=== PATIENT | female | born 1970 | race Native Hawaiian/Other Pacific Islander ===

== ENCOUNTER 2020-05-07 08:26 | Outpatient (REF) | payer MEDICAID, SELFPAY ==
--- NOTE | 2020-05-07 08:33 | MM_ITS ---
EXAMINATION: MM SCREENING DIGITAL BREAST TOMOSYNTHESIS, BILATERAL CLINICAL INFORMATION: Screening. Asymptomatic. Prior reduction mammoplasty 2013. The lifetime risk of breast cancer based on the Tyrer-Cuzick Model is 7%. COMPARISON: Mammography: 08/01/2018, 07/01/2017 TECHNIQUE: Digital breast tomosynthesis is performed in both the craniocaudal and mediolateral oblique views along with computer-aided detection (CAD). Synthesized 2D images are generated from the tomosynthesis. FINDINGS: There are scattered areas of fibroglandular density (ACR BI-RADS breast composition Category b). Breast tissue composition borders on predominantly fatty. There are no significant masses, abnormal calcifications, or other abnormalities. There is no developing density. The axilla and skin contours are unremarkable. IMPRESSION: No mammographic evidence of malignancy. ASSESSMENT: BI-RADS 1: Negative RECOMMENDATION: Routine annual mammography screening. This patient's information was entered into a reminder system with a target due date for their next mammogram.
== END 2020-05-07 08:27 | disposition home or self-care (01) ==
LOC: HO.MAMMO 08:26
PROVIDERS: PCP Nurse Practitioner Family; Visit Provider Nurse Practitioner Family
DX: Z12.31 Encounter for screening mammogram for malignant neoplasm of breast (principal)
CPT/HCPCS: 77063; 77067

== ENCOUNTER → 2020-06-15 10:03 | Outpatient (BNVA) | payer MEDICAID, SELFPAY | PROVIDERS: PCP Family Medicine; Referring Provider Family Medicine; Visit Provider Physician Assistant | DX: K21.9 Gastro-esophageal reflux disease without esophagitis (principal); Z79.899 Other long term (current) drug therapy; Z86.010 Personal history of colon polyps | CPT/HCPCS: 99212 ==

== ENCOUNTER 2020-06-17 15:19 | Outpatient (REF) | payer MEDICAID, SELFPAY ==
[2020-06-17 16:05] LABS: Basophils Percent Auto 0.4 % (0-2); Eosinophils Absolute Auto 0.1 X10*3/uL (0.0-0.4); Eosinophils Percent Auto 1.8 % (0-4); Hematocrit 37.5 % (37-47); Hemoglobin 12.6 g/dl (12.0-16.0); Lymphocytes Absolute Auto 2.2 X10*3/uL (1.2-4.9); Lymphocytes Percent Auto 39.2 % (20-40); MANUAL DIFF FLAG NO; Mean Corpuscular HGB Conc 33.6 g/dl (31.0-35.0); Mean Corpuscular Volume 92.1 fL (80-98); Mean Platelet Volume 10.2 fL (9.4-12.3); Monocytes Absolute Auto 0.3 X10*3/uL (0.1-1.2); Neutrophils Absolute Auto 2.9 X10*3/uL (2.0-8.3); Neutrophils Percent Auto 52.6 % (45-73); Platelet Count 265 X10*3/uL (160-400); Red Blood Count 4.07 X10*6/uL (4.20-5.50); Red Cell Distribution Width 12.4 % (11.0-16.0); White Blood Count 5.5 X10*3/uL (4.8-10.8)
[2020-06-17 16:31] LABS: Alanine Aminotransferase 23 U/L (0-31); Albumin Level 4.3 g/dL (3.5-5.0); Aspartate Amino Transferase 23 U/L (5-31); Bilirubin Total 0.5 mg/dL (0.0-1.0); Estimated Glomerular Filt Rate > 60
[2020-06-20 08:02] LABS: HIV AB/AG Nonreactive (Nonreactive); HIV Num 1 0.14 S/CO (0.00-0.99); ~HepC Num1 0.16 S/CO (0.00-0.79); ~Hepatitis C Antibody Nonreactive (Nonreactive)
[2020-06-21 21:16] LABS: Hepatitis B Viral DNA Qn - cp 1.72 Log IU/mL (NOT DETECTED); Hepatitis B Viral DNA Qn-IU/mL 53 IU/mL (NOT DETECTED)
== END 2020-06-17 15:20 | disposition home or self-care (01) ==
LOC: HO.LAB 15:19
PROVIDERS: PCP Family Medicine; Visit Provider Internal Medicine Infectious Disease
DX: B19.10 Unspecified viral hepatitis B without hepatic coma (principal)
CPT/HCPCS: 36415; 82040; 82247; 82565; 84450; 84460; 85025; 86803; 87389; 87517

== ENCOUNTER 2020-08-19 09:10 | Outpatient (REF) | payer MEDICAID, SELFPAY ==
[2020-08-19 13:29] LABS: Free T4 (Free Thyroxine) 0.86 ng/dL (0.71-1.85); Thyroid Stimulating Hormone 3.38 uIU/mL (0.32-4.0)
== END 2020-08-19 09:11 | disposition home or self-care (01) ==
LOC: HO.LAB 09:10
PROVIDERS: PCP Family Medicine; Referring Provider Family Medicine; Visit Provider Internal Medicine Endocrinology, Diabetes & Metabolism
DX: E03.8 Other specified hypothyroidism (principal); E06.3 Autoimmune thyroiditis; Z79.899 Other long term (current) drug therapy
CPT/HCPCS: 36415; 84439; 84443

== ENCOUNTER 2020-08-23 08:31 | Outpatient (REF) | payer MEDICAID, SELFPAY ==
[2020-08-23 09:59] LABS: SARS COV2 IgG Negative (Negative)
== END 2020-08-23 08:32 | disposition home or self-care (01) ==
LOC: HO.LAB 08:31
PROVIDERS: PCP Family Medicine; Visit Provider Internal Medicine Infectious Disease
DX: Z20.822 Contact with and (suspected) exposure to COVID-19 (principal)
CPT/HCPCS: 36415; 86769

== ENCOUNTER 2020-09-20 09:50 | Day surgery (SDC) | payer MEDICAID, SELFPAY ==
--- NOTE | 2020-09-19 10:03 | P.CONAN_ITS ---
Documented by User: Emma Edwards 09/19/20 10:05 HPI - Anesthesia Eval Consult details Narrative: 49yo F for Upper Endoscopy and Colonoscopy PMFSH Active Problems Active Problems: All Active Problems (Updated 08/19/20 @ 10:28 by Wanda Sandoval MD) Hypothyroidism (Acute) HTN (hypertension) (Acute) History of colon polyps (Acute) Thyroid condition (Acute) Acid reflux (Acute) Past Medical History Medical History Acid reflux Anemia Anxiety Asthma Depression History of back pain History of colon polyps History of palpitations HTN (hypertension) Hx of migraines Hypothyroidism Seasonal allergies Thyroid condition Tubular adenoma Family History Family History (Updated 06/15/20 @ 10:09 by Katerina Soto CMA) Father Family history of high blood pressure Hx of type 1 diabetes mellitus Mother No problems noted. Surgical History Surgical History History of colonoscopy History of nasal septoplasty History of tubal ligation Hx of bilateral breast reduction surgery Social History Social History (Updated 06/15/20 @ 10:09 by Katerina Soto CMA) Alcohol intake: never Smoking Status: Never smoker Advance Directives: No Advance Directives Information Provided: Yes Meds Allergies Allergy/AdvReac Type Severity Reaction Status Date / Time ibuprofen [From Motrin] Allergy Mild SWELLING Unverified 09/15/20 10:04 aspirin [ASPIRIN] Allergy Unknown SWELLING Unverified 09/15/20 10:04 lactose Allergy Unknown Unknown Uncoded 09/15/20 10:04 Home Medications Medication Instructions Recorded Confirmed Last Taken Type multivitamin 1 tab PO DAILY 06/15/20 09/15/20 Unknown History Exam Exam Date and Time: September 19, 2020 1003 Pertinent Lab Results Pertinent Lab Results: Laboratory Tests 04/03/20 06/17/20 06/17/20 22:03 15:32 15:45 WBC 5.5 Hgb 12.6 Hct 37.5 Plt Count 265 Sodium 140 Potassium 4.1 Chloride 105 BUN 9 Creatinine 0.86 Assessment and Plan Assessment Anesthesia Assessment: Chart Reviewed Documented by User: Tanisha Ace 09/20/20 10:19 [facility] Past Medical History Medical History Acid reflux Anemia Anxiety Asthma Depression History of back pain History of colon polyps History of palpitations HTN (hypertension) Hx of migraines Hypothyroidism Seasonal allergies Thyroid condition Tubular adenoma Family History Family History (Updated 06/15/20 @ 10:09 by Katerina Soto [facility]) Father Family history of high blood pressure Hx of type 1 diabetes mellitus Mother No problems noted. Surgical History Surgical History History of colonoscopy History of nasal septoplasty History of tubal ligation Hx of bilateral breast reduction surgery Social History Social History (Updated 06/15/20 @ 10:09 by Katerina Soto [facility]) Alcohol intake: never Smoking Status: Never smoker Advance Directives: No Advance Directives Information Provided: Yes Meds Allergies Allergy/AdvReac Type Severity Reaction Status Date / Time ibuprofen [From Motrin] Allergy Mild SWELLING Unverified 09/15/20 10:04 aspirin [ASPIRIN] Allergy Unknown SWELLING Unverified 09/15/20 10:04 lactose Allergy Unknown Unknown Uncoded 09/15/20 10:04 Home Medications Medication Instructions Recorded Confirmed Last Taken Type multivitamin 1 tab PO DAILY 06/15/20 09/15/20 Unknown History Exam Airway Mallampati Class: II TM Dist: >3cm Neck ROM: Full Heart: RRR Lungs: CTA BL Assessment and Plan Assessment Anesthesia Assessment: Anesthesia Plan Discussed and Chart Reviewed Final Anesthetic Review NPO: Yes ASA Class: II Final Preanesthetic Review: No Changes in Pt Med Stat and Consent Obtained/Reviewed Patient Risk: Intermediate Procedure Risk: Intermediate Anesthetic Plan Anesthetic Plan: MAC: Disposition: Standard PACU
[2020-09-20 10:17] VITALS: BP 158/93; PULSE 118; RESP 20; TEMP 36.1; O2SAT 99; BMI 27.9
[2020-09-20] MEDS: Lactated Ringers 1,000 ML 100 ML IVCONT (10:39)
--- NOTE | 2020-09-20 11:11 | P.HPSUR_ITS ---
Pre-Procedural Eval Section A The patient is an INPATIENT: No The History & Physical has been completed within 30 days and I have reviewed it.: No Section B Chief Complaint: GERD, Hx of Colon Polyps Details of Present Illness: A 49-year-old female with rectal bleeding and abdominal pain. Patient states that she was supposed to have an upper endoscopy and never happened. She had a colonoscopy 2013 showing a tubular adenoma, Was to repeat colonos copy 2018 she has persistent acid reflux despite omeprazole 20 mg daily. She has intermittent rectal bleeding when she strains for BM. Relevant Social History: None Present Medications: see Short Stay Collaborative assessment Medical History: Significant History (Acid reflux History of colon polyps HTN (hypertension) Thyroid condition Tubular adenoma) History of Previous Operations: Relevant previous surgery/procedure and date(s) (Colonoscopy, bilateral breast reduction) Allergies: Allergies Allergy/AdvReac Type Severity Reaction Status Date / Time aspirin [ASPIRIN] Allergy Severe SWELLING Verified 09/20/20 10:27 ibuprofen [From Motrin] Allergy Mild SWELLING Verified 09/20/20 10:27 lactose Allergy Mild Diarrhea Uncoded 09/20/20 10:27 Review of Systems Sugical H&P ROS: Negative: Constitution, Cardiovascular, Respiratory and Gastrointestinal Exam Surgical H&P Exam: Normal: Heart, Normal: Lungs, Normal: Extremities and Normal: Abdomen Plan Diagnosis/Plan: Change (add EGD for evaluatttn of GERD symptoms) I have reviewed the history and physical and performed a pertinent physical examination on my patient. No changes have occurred unless specified.
--- NOTE | 2020-09-20 11:11 | W.PM.OPN ---
Operative Note Operative Note Date of Service: 09/20/20 Narrative: Pre-op diagnosis: Colon cancer screening, rectal bleeding, GERD Post-op diagnosis: other (GERD, gastritis, colon polyps, diverticular, hemorrhoids) Procedure: FLEXIBLE TRANSORAL UPPER GASTROINTESTINAL ENDOSCOPY AND COLONOSCOPY TILL CECUM WITH BIOPSIES UPPER ENDOSCOPY WITH BIOPSIES Consent: Indications for the procedure and potential complications of bleeding, perforation, reaction to medications and missed diagnosis were discussed with the patient and informed consent was obtained. Instrument: Olympus GIF H 190 mid size upper endoscope Monitoring: Vital signs and clinical assessment, continuous EKG monitoring, Pulse oximetry, Carbon Dioxide monitoring and blood pressure monitoring were done throughout the procedure. Procedure: The patient was placed in the left lateral decubitis position and pre-procedure medications were administered and a bite block was placed. The endoscope was inserted into the mouth and advanced under direct vision to the third part of duodenum. A careful inspection was made as the upper endoscope was withdrawn including a retroflexed examination of the proximal stomach; Findings and interventions are described below. Findings: Larynx: Normal Esophagus: GE junction at 35 cms. No esophagitis or Duke's. Stomach: Mild gastric erythema. Biopsies were obtained. Grade 2 flap valve on retroflexed examination of the cardia. Duodenum: Normal bulb and descending duodenum Intervention: Biopsies as noted above COLONOSCOPY PROCEDURE NOTE Consent: Indications for the procedure and potential complications of bleeding, perforation, reaction to medications and missed diagnosis were discussed with the patient and informed consent was obtained. Instrument: Olympus PCF H 190 L variable stiffness pediatric colonoscope Monitoring: Vital signs and clinical assessment, intermittent blood pressure monitoring, continuous EKG monitoring, Pulse oximetry and Carbon Dioxide monitoring were done throughout the procedure. Colon withdrawl time was 18 minutes. Procedure: The patient was placed in the left lateral decubitis position and pre-procedure medications were administered. After a digital rectal examination of the ano-rectum, the video colonoscope was inserted into the rectum and advanced through the colon to the cecum. The colonoscope was slowly withdrawn in a retrograde panoramic fashion and the colon mucosa was carefully examined including a retroflexed view of the rectum. Findings and interventions are described below. Procedure Difficulty: : without difficulty Findings: Terminal Ileum: Not evaluated Cecum: Normal Ascending Colon: Normal Transverse Colon: Normal Descending Colon: Moderate diverticulosis Sigmoid Colon: A 6-7 mm sessile polyp removed with cold biopsy and severe diverticulosis with luminal narrowing. Rectum: Normal Ano-rectum: Moderate internal hemorrhoids Colon preparation: Good copious irrigation Impression and Post Procedure Diagnosis: Endoscopy Findings: ESOPHAGUS: Normal STOMACH: Gastritis. Colonoscopy Findings: One small polyp removed Moderate to severe diverticulosis seen in the left colon Moderate hemorrhoids on retroflexed exam - likely source of rectal bleeding. Plan: Await pathology results Patient has an appointment on 10/12/20 in the GI Clinic with MILLA Lopez . Repeat Colonoscopy interval based on path results - in 5 years if polyps are adenomatous and 10 years if polyps are hyperplastic. Above findings were reviewed with the patient and GERD, colon polyps and diverticulosis handouts were given in the discharge area Surgeon: Segun Galindo MD Anesthesia: MAC (Dr Santana) Estimated blood loss (mL): 0 Pathology: other (A. Gastric antrum, B. SC polyp) Condition: stable Disposition: PACU
[2020-09-20 12:10] VITALS: BP 115/70; PULSE 86; RESP 16; TEMP 36.9; O2SAT 99
[2020-09-20 12:25] VITALS: BP 121/59; PULSE 84; RESP 16; O2SAT 98
[2020-09-20 12:30] VITALS: BP 130/79; PULSE 86; RESP 20; TEMP 36.9; O2SAT 99
== END 2020-09-20 13:25 | disposition home or self-care (01) ==
PROVIDERS: PCP Family Medicine; Visit Provider Internal Medicine Gastroenterology
PROC: (CPT 45380; principal; 2020-09-20 10:50)
DX: Z12.11 Encounter for screening for malignant neoplasm of colon (principal); Z86.010 Personal history of colon polyps; D12.5 Benign neoplasm of sigmoid colon; K57.30 Diverticulosis of large intestine without perforation or abscess without bleeding; K64.8 Other hemorrhoids; K21.9 Gastro-esophageal reflux disease without esophagitis; K29.50 Unspecified chronic gastritis without bleeding; J45.909 Unspecified asthma, uncomplicated; I10 Essential (primary) hypertension; D64.9 Anemia, unspecified; Z79.899 Other long term (current) drug therapy; Z88.8 Allergy status to other drugs, medicaments and biological substances
CPT/HCPCS: 45380; 43239; 88305; 88342

== ENCOUNTER → 2020-10-12 11:53 | Outpatient (BNVA) | payer MEDICAID, SELFPAY | PROVIDERS: PCP Family Medicine; Visit Provider Physician Assistant ==

== ENCOUNTER 2020-11-01 19:01 | Emergency (ER) | payer MEDICAID, SELFPAY ==
--- NOTE | ~2020-11-01 | XR_ITS ---
EXAMINATION: XR CHEST CLINICAL INFORMATION: Chest pain COMPARISON: Chest x-ray 04/03/2020 TECHNIQUE: Frontal view of the chest was obtained. FINDINGS: Cardiac silhouette is normal in size. The lungs are well aerated. There is no lobar consolidation. No pleural effusion or pneumothorax. Mild degenerative changes of the spine. XR/XR chest 1V IMPRESSION: Stable examination demonstrating no acute pulmonary pathology.
[2020-11-01 19:15] VITALS: BP 187/92; PULSE 99; RESP 20; TEMP 36.4; O2SAT 99; BMI 28.3
--- NOTE | 2020-11-01 19:19 | ECG_ITS ---
Test Reason : CHEST THIGNESS Blood Pressure : / mmHG Vent. Rate : 100 BPM Atrial Rate : 100 BPM P-R Int : 138 ms QRS Dur : 074 ms QT Int : 304 ms P-R-T Axes : 051 058 000 degrees QTc Int : 392 ms Normal sinus rhythm Nonspecific ST and T wave abnormality Abnormal ECG Referred By: Generic ED Physician Electronically Signed By:CAMMIE LYMAN MD
[2020-11-01 19:50] LABS: Glucose Urine UA NEG (NEG); Leukocyte Esterase Urine NEG (NEG); MANUAL DIFF FLAG NO; Nitrite Urine NEG (NEG); PH 6.5 (5.0-8.0); Specific Gravity - Urine <= 1.005 (1.005-1.025); Urine Blood NEG (NEG); Urine Ketones NEG (NEG); Urine Protein NEG (NEG-TRACE)
[2020-11-01 19:55] LABS: Appearance Urine CLEAR; Color Urine COLORLESS
[2020-11-01 19:56] LABS: Basophils Percent Auto 0.7 % (0-2); Eosinophils Absolute Auto 0.2 X10*3/uL (0.0-0.4); Eosinophils Percent Auto 2.6 % (0-4); Hematocrit 37.4 % (37-47); Hemoglobin 12.5 g/dl (12.0-16.0); Imm Gran Abs Auto 0.01 X10*3/uL (0.00-0.03); Imm Gran Pct Auto 0.2 % (0.0-0.4); Lymphocytes Absolute Auto 2.5 X10*3/uL (1.2-4.9); Lymphocytes Percent Auto 42.1 % (20-40); Mean Corpuscular HGB Conc 33.4 g/dl (31.0-35.0); Mean Corpuscular Hemoglobin 31.1 pg (27.0-33.0); Mean Platelet Volume 10.3 fL (9.4-12.3); Monocytes Absolute Auto 0.4 X10*3/uL (0.1-1.2); Neutrophils Absolute Auto 2.8 X10*3/uL (2.0-8.3); Neutrophils Percent Auto 48.4 % (45-73); Platelet Count 236 X10*3/uL (160-400); Red Blood Count 4.02 X10*6/uL (4.20-5.50); Red Cell Distribution Width 12.5 % (11.0-16.0); White Blood Count 5.8 X10*3/uL (4.8-10.8)
[2020-11-01 20:24] LABS: Anion Gap 12 (12-20); Blood Urea Nitrogen 9 mg/dL (9-16); Calcium 9.4 mg/dL (8.4-10.2); Carbon Dioxide 27 mmol/L (22-29); Chloride 103 mmol/L (96-108); Creatinine Clr Calc Pharmacy 63.9; Estimated Glomerular Filt Rate > 60; Glucose Random 134 mg/dL (60-115); Potassium 3.8 mmol/L (3.3-5.1); Sodium 138 mmol/L (135-145)
[2020-11-01 20:28] LABS: Troponin-I High Sensitivity < 3.5 ng/L (<3.5-17.0)
[2020-11-01 21:02] VITALS: BP 149/83; PULSE 94; RESP 16; TEMP 36.3; O2SAT 99
[2020-11-01 23:02] VITALS: BP 155/64; PULSE 74; RESP 16; TEMP 36.9; O2SAT 99
[2020-11-02] VITALS: BP 140/60; PULSE 80; PULSE 88; RESP 20; TEMP 37; O2SAT 98
--- NOTE | 2020-11-02 00:41 | ED.CHESTPAIN ---
HPI - Chest Pain General Chief Complaint: Chest Pain Stated Complaint: CHEST TIGHTNESS Time Seen by Provider: 11/02/20 00:41 History of Present Illness HPI narrative: Patient is a 49-year-old female presents today with having chest burning sensation that is been ongoing for the last week. It is constant in nature. Sometimes worse at night. Patient denies any diaphoresis. No shortness of breath. The pain is constant. No history of diabetes. Positive history of hypertension. No history of smoking. Never had a heart attack. Never had a stroke. Patient did not have a recent stress test. No history of sudden in the family. No leg swelling. No history of blood clots. No travel history. Not on hormone replacement. Related Data Home Medications Medication Instructions Recorded Confirmed multivitamin 1 tab PO DAILY 06/15/20 09/15/20 Previous Rx's Medication Instructions Recorded omeprazole 20 mg capsule,delayed 20 mg PO BID #30 cap 06/15/20 release levothyroxine 75 mcg tablet 75 mcg PO DAILY 90 Days #90 tab 08/19/20 Allergies Allergy/AdvReac Type Severity Reaction Status Date / Time aspirin [ASPIRIN] Allergy Severe SWELLING Verified 10/12/20 11:54 ibuprofen [From Motrin] Allergy Mild SWELLING Verified 10/12/20 11:54 lactose Allergy Mild Diarrhea Uncoded 09/20/20 10:27 Review of Systems Review of Systems: Constitutional: No Weight loss, No Fever, No Chills, No Night Sweats, No Fatigue, No Malaise ENT/Mouth: No Hearing loss, No Ear Pain, No Nasal Congestion, No Sinus Pain, No Hoarseness, No sore throat, No Rhinorrhea, No Swallowing Difficulty Eyes: No Eye Pain, No Swelling, No Redness, No Foreign Body, No Discharge, No Vision Changes Cardiovascular: No Chest Pain, No SOB, No Dyspnea on Exertion, No Orthopnea, No Edema, No Palpitations Respiratory: No Cough, No Sputum, No Wheezing, No Smoke Exposure, No Dyspnea Gastrointestinal: No Nausea, No Vomiting, No Diarrhea, No Constipation, No abdominal Pain, No Hematochezia, No Melena Genitourinary: no irregular bleeding, No Dysuria, No Urinary Frequency, No Hematuria, No Urinary Incontinence, No Urgency, No Flank Pain, No Urinary Flow Changes, No Hesitancy Musculoskeletal: No joint pain, No Myalgias, No Joint Swelling Skin: No Skin Lesions, No rash Neuro: No Weakness, No Numbness, No Paresthesias, No Loss of Consciousness, No Dizziness, No Headache Psych: No Anxiety/Panic, No Depression, No SI/HI/AH/VH, No Social Issues, Heme/Lymph: No Bruising, No Bleeding,No Lymphadenopathy Endocrine: No Polyuria, No Polydipsia, No Temperature Intolerance [facility] Past Medical History Medical History Acid reflux Anemia Anxiety Asthma Depression History of back pain History of colon polyps History of palpitations HTN (hypertension) Hx of migraines Hypothyroidism Seasonal allergies Thyroid condition Tubular adenoma Surgical History History of colonoscopy History of esophagogastroduodenoscopy (EGD) History of nasal septoplasty History of tubal ligation Hx of bilateral breast reduction surgery Family History Family History Father Family history of high blood pressure Hx of type 1 diabetes mellitus Mother No problems noted. Social History Social History Household Members: None Alcohol intake: current Alcohol intake frequency: does not drink Smoking Status: Never smoker Advance Directives: No Advance Directives Information Provided: No Physical Exam Vital Signs: Vital Signs: Last Vital Signs Temp 98.4 F 11/01/20 23:02 Pulse 74 11/01/20 23:02 Resp 16 11/01/20 23:02 BP 155/64 H 11/01/20 23:02 Pulse Ox 99 11/01/20 23:02 Body Mass Index 28.3 Appearance: Alert. Oriented X3. No acute distress. Eyes: Pupils equal, round and reactive to light. ENT: Pharynx normal. Neck: Normal inspection. Neck supple. No lymph nodes noted. No crepitus CVS: Normal heart rate and rhythm. Pulses normal. Normal S1 and S2 Respiratory: No respiratory distress. Breath sounds normal. No Wheezing. No rales Abdomen: Soft and nontender. No rigidity. No distention. good BS x4 Skin: Skin warm and dry. Normal skin color. Normal skin turgor. Extremities: No lower extremity edema. Neurovascular intact to all extremities. No Lacerations. No Rash Neuro: Oriented X 3. No motor deficit. No sensory deficit. Moving all extermities. No slurred speech MDM - Chest Pain MDM Narrative Medical decision making narrative: Patient's chest pain atypical in nature. Has risk factors being her age and also hypertension. Patient's EKG showed a sinus pattern heart rate was 100 [place] QRS QT within normal limits is no acute ST segment noted. Patient's troponin is normal in the setting of having chest pain greater than 6 hours. Patient's heart score is 3. Will have patient follow-up on an outpatient basis. Patient's chest x-ray did not show any evidence of pneumonia pneumothorax. Will start patient on omeprazole for possible reflux. Will discharge patient home. Patient has no risk for PE. History atypical for PE. Medical Records Data Attestation: I reviewed the patient's medical records. Lab Data Attestation: I reviewed the patient's lab results. Result diagrams: 11/01/20 19:41 11/01/20 19:41 Labs: Lab Results 11/01/20 11/01/20 11/01/20 Range/Units 19:41 19:41 19:41 WBC 5.8 (4.8-10.8) X10*3/uL RBC 4.02 L (4.20-5.50) X10*6/uL Hgb 12.5 (12.0-16.0) g/dl Hct 37.4 (37-47) % MCV 93.0 (80-98) fL MCH 31.1 (27.0-33.0) pg MCHC 33.4 (31.0-35.0) g/dl RDW 12.5 (11.0-16.0) % Plt Count 236 (160-400) X10*3/uL MPV 10.3 (9.4-12.3) fL Immature Gran % (Auto) 0.2 (0.0-0.4) % Neut % (Auto) 48.4 (45-73) % Lymph % (Auto) 42.1 H (20-40) % [place] % (Auto) 6.0 (2-11) % Eos % (Auto) 2.6 (0-4) % Baso % (Auto) 0.7 (0-2) % Lymph # (Auto) 2.5 (1.2-4.9) X10*3/uL [place] # (Auto) 0.4 (0.1-1.2) X10*3/uL Eos # (Auto) 0.2 (0.0-0.4) X10*3/uL Baso # (Auto) 0.0 (0.0-0.2) X10*3/uL Abs Immat Gran (auto) 0.01 (0.00-0.03) X10*3/uL Absolute Neuts (auto) 2.8 (2.0-8.3) X10*3/uL Absolute Nucleated RBC 0.000 (0.0-0.012) X10*3/uL Nucleated RBC % (auto) 0.0 (0.0-0.2) /100WBC Hold Blue Top SEE NOTE Sodium 138 (135-145) mmol/L Potassium 3.8 (3.3-5.1) mmol/L Chloride 103 (96-108) mmol/L Carbon Dioxide 27 (22-29) mmol/L Anion Gap 12 (12-20) BUN 9 (9-16) mg/dL Creatinine 0.89 (0.5-1.4) mg/dL Estim Creat Clear Calc 63.9 Estimated GFR > 60 Random Glucose 134 H (60-115) mg/dL Calcium 9.4 (8.4-10.2) mg/dL Troponin I High Sens (<3.5-17.0) ng/L Urine Color Urine Appearance Urine pH (5.0-8.0) Ur Specific [place] (1.005-1.025) Urine Protein (NEG-TRACE) MG/DL Urine Glucose (UA) (NEG) MG/DL Urine Ketones (NEG) MG/DL Urine Blood (NEG) Urine Nitrite (NEG) Ur Leukocyte Esterase (NEG) 11/01/20 11/01/20 Range/Units 19:41 19:41 WBC (4.8-10.8) X10*3/uL RBC (4.20-5.50) X10*6/uL Hgb (12.0-16.0) g/dl Hct (37-47) % MCV (80-98) fL MCH (27.0-33.0) pg MCHC (31.0-35.0) g/dl RDW (11.0-16.0) % Plt Count (160-400) X10*3/uL MPV (9.4-12.3) fL Immature Gran % (Auto) (0.0-0.4) % Neut % (Auto) (45-73) % Lymph % (Auto) (20-40) % [place] % (Auto) (2-11) % Eos % (Auto) (0-4) % Baso % (Auto) (0-2) % Lymph # (Auto) (1.2-4.9) X10*3/uL [place] # (Auto) (0.1-1.2) X10*3/uL Eos # (Auto) (0.0-0.4) X10*3/uL Baso # (Auto) (0.0-0.2) X10*3/uL Abs Immat Gran (auto) (0.00-0.03) X10*3/uL Absolute Neuts (auto) (2.0-8.3) X10*3/uL Absolute Nucleated RBC (0.0-0.012) X10*3/uL Nucleated RBC % (auto) (0.0-0.2) /100WBC Hold Blue Top Sodium (135-145) mmol/L Potassium (3.3-5.1) mmol/L Chloride (96-108) mmol/L Carbon Dioxide (22-29) mmol/L Anion Gap (12-20) BUN (9-16) mg/dL Creatinine (0.5-1.4) mg/dL Estim Creat Clear Calc Estimated GFR Random Glucose (60-115) mg/dL Calcium (8.4-10.2) mg/dL Troponin I High Sens < 3.5 (<3.5-17.0) ng/L Urine Color COLORLESS Urine Appearance CLEAR Urine pH 6.5 (5.0-8.0) Ur Specific [place] <= 1.005 (1.005-1.025) Urine Protein NEG (NEG-TRACE) MG/DL Urine Glucose (UA) NEG (NEG) MG/DL Urine Ketones NEG (NEG) MG/DL Urine Blood NEG (NEG) Urine Nitrite NEG (NEG) Ur Leukocyte Esterase NEG (NEG) ECG Data ECG #1: Interpretation: Sinus pattern heart rate is 100 [place] QRS QT within normal limits is no acute ST segment elevation. Discharge Plan Discharge Clinical Impression: Chest pain, Atypical chest pain Patient Disposition: Home, Self-Care Instructions: Chest Pain (ED) Additional Instructions: Small risk of heart attack still exist. Please closely follow-up with her doctor on an outpatient basis. Prescriptions: No Action levothyroxine 75 mcg tablet 75 mcg PO DAILY 90 Days Qty: 90 RF: 3 multivitamin Tablet 1 tab PO DAILY RF: 0 omeprazole 20 mg capsule,delayed release(DR/EC) 20 mg PO BID Qty: 30 RF: 5 Referrals: [facility] [Primary Care Provider] - 2 days
== END 2020-11-02 01:30 | disposition home or self-care (01) ==
PROVIDERS: Emergency Provider Emergency Medicine Emergency Medical Services
DX: R07.9 Chest pain, unspecified (principal); R07.89 Other chest pain; I10 Essential (primary) hypertension; K21.9 Gastro-esophageal reflux disease without esophagitis; J45.909 Unspecified asthma, uncomplicated
CPT/HCPCS: 36415; 71045; 80048; 81003; 84484; 85025; 93005; 99283; 99284

== ENCOUNTER 2020-11-02 09:56 | Outpatient (REF) | payer MEDICAID, SELFPAY ==
[2020-11-02 17:49] LABS: Free T4 (Free Thyroxine) 1.12 ng/dL (0.71-1.85); Thyroid Stimulating Hormone 1.23 uIU/mL (0.32-4.0)
== END 2020-11-02 09:57 | disposition home or self-care (01) ==
LOC: HO.LAB 09:56
PROVIDERS: PCP Family Medicine; Visit Provider Internal Medicine Endocrinology, Diabetes & Metabolism
DX: E03.8 Other specified hypothyroidism (principal); E06.3 Autoimmune thyroiditis
CPT/HCPCS: 36415; 84439; 84443

== ENCOUNTER 2020-11-28 14:00 | Outpatient (REF) | payer MEDICAID, SELFPAY ==
[2020-11-28 14:54] LABS: MANUAL DIFF FLAG NO
[2020-11-28 15:01] LABS: Basophils Percent Auto 0.6 % (0-2); Eosinophils Absolute Auto 0.2 X10*3/uL (0.0-0.4); Eosinophils Percent Auto 3.6 % (0-4); Hemoglobin 12.5 g/dl (12.0-16.0); Imm Gran Abs Auto 0.01 X10*3/uL (0.00-0.03); Imm Gran Pct Auto 0.2 % (0.0-0.4); Lymphocytes Absolute Auto 1.9 X10*3/uL (1.2-4.9); Lymphocytes Percent Auto 36.6 % (20-40); Mean Corpuscular HGB Conc 32.9 g/dl (31.0-35.0); Mean Corpuscular Volume 94.3 fL (80-98); Mean Platelet Volume 10.9 fL (9.4-12.3); Monocytes Absolute Auto 0.3 X10*3/uL (0.1-1.2); Monocytes Percent Auto 4.7 % (2-11); Neutrophils Absolute Auto 2.9 X10*3/uL (2.0-8.3); Neutrophils Percent Auto 54.3 % (45-73); Platelet Count 256 X10*3/uL (160-400); Red Blood Count 4.03 X10*6/uL (4.20-5.50); Red Cell Distribution Width 12.6 % (11.0-16.0); White Blood Count 5.3 X10*3/uL (4.8-10.8)
[2020-11-28 15:28] LABS: Alanine Aminotransferase 23 U/L (0-31); Albumin Level 4.3 g/dL (3.5-5.0); Aspartate Amino Transferase 20 U/L (5-31); Bilirubin Total 0.5 mg/dL (0.0-1.0); Estimated Glomerular Filt Rate > 60
[2020-11-28 15:48] LABS: Syphilis Screen Nonreactive (Nonreactive)
[2020-11-29 04:39] LABS: HIV AB/AG Nonreactive (Nonreactive); HIV Num 1 0.06 S/CO (0.00-0.99); ~HepC Num1 0.12 S/CO (0.00-0.79); ~Hepatitis C Antibody Nonreactive (Nonreactive)
[2020-11-29 04:42] LABS: SARS COV2 IgG Negative (Negative)
[2020-11-29 09:29] LABS: CT PCR NOT DETECTED (Not Detect.); NG PCR NOT DETECTED (Not Detect.)
[2020-12-01 14:52] LABS: Hepatitis B Viral DNA Qn - cp 1.36 Log IU/mL (NOT DETECTED); Hepatitis B Viral DNA Qn-IU/mL 23 IU/mL (NOT DETECTED)
== END 2020-11-28 14:01 | disposition home or self-care (01) ==
LOC: HO.LAB 14:00
PROVIDERS: PCP Family Medicine; Visit Provider Internal Medicine Infectious Disease
DX: Z20.822 Contact with and (suspected) exposure to COVID-19 (principal)
CPT/HCPCS: 82040; 82247; 82565; 84450; 84460; 85025; 86769; 86780; 86803; 87389; 87491; 87517; 87591

== ENCOUNTER 2020-12-02 00:33 | Emergency (ER) | payer MEDICAID, SELFPAY ==
--- NOTE | ~2020-12-02 | XR_ITS ---
EXAMINATION: XR CHEST CLINICAL INFORMATION: Chest tightness, cough COMPARISON: 11/01/2020 TECHNIQUE: Frontal view of the chest was obtained. FINDINGS: The lungs are clear with no focal consolidation. No evidence of pneumothorax, pulmonary edema, or pleural effusions. The cardiomediastinal silhouette is unremarkable. No acute osseous findings. XR/XR chest 1V IMPRESSION: No acute cardiopulmonary findings.
[2020-12-02 00:50] VITALS: BP 174/88; PULSE 102; RESP 20; TEMP 36.3; O2SAT 98; BMI 27.7
--- NOTE | 2020-12-02 02:05 | ECG_ITS ---
Test Reason : CHEST PAIN Blood Pressure : / mmHG Vent. Rate : 097 BPM Atrial Rate : 097 BPM P-R Int : 140 ms QRS Dur : 082 ms QT Int : 332 ms P-R-T Axes : 042 053 -02 degrees QTc Int : 421 ms Normal sinus rhythm Nonspecific ST and T wave abnormality Abnormal ECG When compared with ECG of 01-NOV-2020 19:16, No significant change was found Referred By: Alicja Rosa Electronically Signed By:VALENTINE ALAMO
--- NOTE | 2020-12-02 02:07 | ED.ASTHMA ---
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 Patient states that she uses Taboola for her asthma control, but has not been working lately. Otherwise, she denies any other acute symptoms. Related Data Home Medications Medication Instructions Recorded Confirmed multivitamin 1 tab PO DAILY 06/15/20 09/15/20 Previous Rx's Medication Instructions Recorded omeprazole 20 mg capsule,delayed 20 mg PO BID #30 cap 06/15/20 release levothyroxine 75 mcg tablet 75 mcg PO DAILY 90 Days #90 tab 08/19/20 prednisone 40 mg PO DAILY 4 Days #8 tab 12/02/20 Allergies Allergy/AdvReac Type Severity Reaction Status Date / Time aspirin [ASPIRIN] Allergy Severe SWELLING Verified 10/12/20 11:54 ibuprofen [From Motrin] Allergy Mild SWELLING Verified 10/12/20 11:54 lactose Allergy Mild Diarrhea Uncoded 09/20/20 10:27 Review of Systems Review of Systems: Pertinent positives and negatives as stated in HPI 10 point review of systems otherwise negative. [facility] Past Medical History Source: nursing notes reviewed Medical History Acid reflux Anemia Anxiety Asthma Depression History of back pain History of colon polyps History of palpitations HTN (hypertension) Hx of migraines Hypothyroidism Seasonal allergies Thyroid condition Tubular adenoma Surgical History History of colonoscopy History of esophagogastroduodenoscopy (EGD) History of nasal septoplasty History of tubal ligation Hx of bilateral breast reduction surgery Family History Family History Father Family history of high blood pressure Hx of type 1 diabetes mellitus Mother No problems noted. Social History Social History Household Members: None Alcohol intake: current Alcohol intake frequency: does not drink Smoking Status: Never smoker Advance Directives: No Advance Directives Information Provided: No Patient : No Physical Exam Vital Signs: Vital Signs: Last Vital Signs Temp 97.4 F 12/02/20 00:50 Pulse 95 12/02/20 03:53 Resp 16 12/02/20 03:53 BP 152/90 H 12/02/20 03:53 Pulse Ox 100 12/02/20 03:53 Body Mass Index 27.7 VITAL SIGNS: Reviewed. GENERAL: Well developed, well nourished, in no acute distress. HEAD: Normocephalic/atraumatic EYES: PERRLA, EOMI OROPHARYNX: no oral lesions noted, posterior pharynx clear NECK: Supple, no adenopathy LUNGS: Normal breath sounds, mild bilateral expiratory wheeze without tachypnea or accessory muscle use. SpO2<98> CARDIOVASCULAR: Regular rate and rhythm without noted murmurs ABDOMEN: Soft, non-tender, non-distended with bowel sounds. SKIN: Inspection of the skin reveals no rashes NEUROLOGIC: Alert and oriented x 4. Course Course Course Narrative: 50-year-old female with history and clinical presentation consistent with mild asthma exacerbation likely combined with seasonal allergies. Low clinical suspicion for cardiopulmonary etiologies. Labs, chest x-ray, albuterol, Solu-Medrol. On review of all investigations there are no acute findings from baseline and on re-evaluation patient reports she is feeling much better. MDM - Asthma Lab Data Result diagrams: 12/02/20 03:20 12/02/20 03:20 Labs: Lab Results 12/02/20 12/02/20 12/02/20 Range/Units 03:00 03:20 03:20 WBC 5.1 (4.8-10.8) X10*3/uL RBC 3.87 L (4.20-5.50) X10*6/uL Hgb 12.1 (12.0-16.0) g/dl Hct 36.3 L (37-47) % MCV 93.8 (80-98) fL MCH 31.3 (27.0-33.0) pg MCHC 33.3 (31.0-35.0) g/dl RDW 12.6 (11.0-16.0) % Plt Count 236 (160-400) X10*3/uL MPV 10.2 (9.4-12.3) fL Immature Gran % (Auto) 0.2 (0.0-0.4) % Neut % (Auto) 61.0 (45-73) % Lymph % (Auto) 27.6 (20-40) % [place] % (Auto) 6.5 (2-11) % Eos % (Auto) 4.1 H (0-4) % Baso % (Auto) 0.6 (0-2) % Lymph # (Auto) 1.4 (1.2-4.9) X10*3/uL [place] # (Auto) 0.3 (0.1-1.2) X10*3/uL Eos # (Auto) 0.2 (0.0-0.4) X10*3/uL Baso # (Auto) 0.0 (0.0-0.2) X10*3/uL Abs Immat Gran (auto) 0.01 (0.00-0.03) X10*3/uL Absolute Neuts (auto) 3.1 (2.0-8.3) X10*3/uL Absolute Nucleated RBC 0.000 (0.0-0.012) X10*3/uL Nucleated RBC % (auto) 0.0 (0.0-0.2) /100WBC Sodium 140 (135-145) mmol/L Potassium 3.8 (3.3-5.1) mmol/L Chloride 107 (96-108) mmol/L Carbon Dioxide 26 (22-29) mmol/L Anion Gap 11 L (12-20) BUN 11 (9-16) mg/dL Creatinine 0.83 (0.5-1.4) mg/dL Estim Creat Clear Calc 67.2 Estimated GFR > 60 Random Glucose 161 H (60-115) mg/dL Calcium 9.3 (8.4-10.2) mg/dL Total Bilirubin 0.4 (0.0-1.0) mg/dL AST 17 (5-31) U/L ALT 20 (0-31) U/L Alkaline Phosphatase 106 (39-117) U/L Total Protein 7.0 (6.5-8.0) g/dL Albumin 4.1 (3.5-5.0) g/dL Urine Color COLORLESS Urine Appearance CLEAR Urine pH 7.0 (5.0-8.0) Ur Specific [place] <= 1.005 (1.005-1.025) Urine Protein NEG (NEG-TRACE) MG/DL Urine Glucose (UA) NEG (NEG) MG/DL Urine Ketones NEG (NEG) MG/DL Urine Blood NEG (NEG) Urine Nitrite NEG (NEG) Ur Leukocyte Esterase NEG (NEG) Discharge Plan Discharge Clinical Impression: Asthma with acute exacerbation Patient Disposition: Home, Self-Care Instructions: Asthma (ED) Additional Instructions: Reanude los medicamentos en el hogar seg?n lo recetado. Bruce un seguimiento con christianson proveedor de atenci?n primaria en los pr?ximos 2-3 d?as para wyatt reevaluaci?n. Recomiende el uso de Claritin (loratadina) de venta kolby, as? katia Flonase y wyatt combinaci?n para las alergias estacionales que pueden estar contribuyendo a los s?ntomas del asma. Regrese al departamento de emergencias por cualquier empeoramiento hany de los s?ntomas. Prescriptions: New prednisone 20 mg tablet 40 mg PO DAILY 4 Days Qty: 8 RF: 0 No Action levothyroxine 75 mcg tablet 75 mcg PO DAILY 90 Days Qty: 90 RF: 3 multivitamin Tablet 1 tab PO DAILY RF: 0 omeprazole 20 mg capsule,delayed release(DR/EC) 20 mg PO BID Qty: 30 RF: 5 Referrals: Ashlee Meza MD [Primary Care Provider] - 2 days Print Language: Greenlandic
[2020-12-02] MEDS: predniSONE 10 MG TABLET 50 MG PO (02:45)
[2020-12-02 03:06] LABS: Glucose Urine UA NEG (NEG); Leukocyte Esterase Urine NEG (NEG); Nitrite Urine NEG (NEG); Specific Gravity - Urine <= 1.005 (1.005-1.025); Urine Blood NEG (NEG); Urine Ketones NEG (NEG); Urine Protein NEG (NEG-TRACE)
[2020-12-02 03:11] LABS: Appearance Urine CLEAR; Color Urine COLORLESS
[2020-12-02 03:23] LABS: MANUAL DIFF FLAG NO
[2020-12-02 03:25] LABS: Basophils Percent Auto 0.6 % (0-2); Eosinophils Absolute Auto 0.2 X10*3/uL (0.0-0.4); Eosinophils Percent Auto 4.1 % (0-4); Hematocrit 36.3 % (37-47); Hemoglobin 12.1 g/dl (12.0-16.0); Imm Gran Abs Auto 0.01 X10*3/uL (0.00-0.03); Imm Gran Pct Auto 0.2 % (0.0-0.4); Lymphocytes Absolute Auto 1.4 X10*3/uL (1.2-4.9); Lymphocytes Percent Auto 27.6 % (20-40); Mean Corpuscular HGB Conc 33.3 g/dl (31.0-35.0); Mean Corpuscular Hemoglobin 31.3 pg (27.0-33.0); Mean Corpuscular Volume 93.8 fL (80-98); Mean Platelet Volume 10.2 fL (9.4-12.3); Monocytes Absolute Auto 0.3 X10*3/uL (0.1-1.2); Monocytes Percent Auto 6.5 % (2-11); Neutrophils Absolute Auto 3.1 X10*3/uL (2.0-8.3); Platelet Count 236 X10*3/uL (160-400); Red Blood Count 3.87 X10*6/uL (4.20-5.50); Red Cell Distribution Width 12.6 % (11.0-16.0); White Blood Count 5.1 X10*3/uL (4.8-10.8)
[2020-12-02] MEDS: Albuterol Sulfate (0.083%) 2.5 MG/3 ML VIAL.NEB 5 MG INHALE (03:50)
[2020-12-02 03:51] VITALS: PULSE 102; O2SAT 96
[2020-12-02 03:52] LABS: Alanine Aminotransferase 20 U/L (0-31); Albumin Level 4.1 g/dL (3.5-5.0); Alkaline Phosphatase 106 U/L (39-117); Anion Gap 11 (12-20); Aspartate Amino Transferase 17 U/L (5-31); Bilirubin Total 0.4 mg/dL (0.0-1.0); Blood Urea Nitrogen 11 mg/dL (9-16); Calcium 9.3 mg/dL (8.4-10.2); Carbon Dioxide 26 mmol/L (22-29); Chloride 107 mmol/L (96-108); Creatinine Clr Calc Pharmacy 67.2; Estimated Glomerular Filt Rate > 60; Glucose Random 161 mg/dL (60-115); Potassium 3.8 mmol/L (3.3-5.1); Sodium 140 mmol/L (135-145)
[2020-12-02 03:53] VITALS: BP 152/90; PULSE 95; RESP 16; O2SAT 100
[2020-12-02 04:00] VITALS: BP 152/87; PULSE 91; RESP 18; O2SAT 97
== END 2020-12-02 04:38 | disposition home or self-care (01) ==
PROVIDERS: Emergency Provider Student in an Organized Health Care Education/Training Program; PCP Family Medicine
DX: J45.901 Unspecified asthma with (acute) exacerbation (principal); Z79.899 Other long term (current) drug therapy
CPT/HCPCS: 36415; 71045; 80053; 81003; 85025; 93005; 94640; 99285

== ENCOUNTER 2020-12-02 09:55 | Emergency (ER) | payer MEDICAID, SELFPAY ==
--- NOTE | 2020-12-02 10:00 | ED_ITS ---
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 Mode of arrival: ambulatory Limitations: no limitations History of Present Illness HPI narrative: 50 yo female with asthma, hypothyroidism seen today for asthma given IV steroids and neb, started on 40mg prednisone daily has not taken the steroid yet, she is very anxious and worked up at this time, she checked her blood sugar this AM and it was 194 so she is very worried, discussed side effects of steroids - she is not sure she is going to take them, discussed in the acute setting and one time elevation we will not start her on medications and it is likely side effect of steroids - she needs to monitor her during the course of treatment and after, PO ativan for anxiety ordered, blood sugar check Onset (ago): hour(s) Severity: mild Relieving factors: none Exacerbating factors: none Associated symptoms: denies other symptoms Treatments prior to arrival: other (does not have diabetes but checked her blood sugar at home 194 became anxious and came to the ED) Related Data Home Medications Medication Instructions Recorded Confirmed multivitamin 1 tab PO DAILY 06/15/20 09/15/20 Previous Rx's Medication Instructions Recorded omeprazole 20 mg capsule,delayed 20 mg PO BID #30 cap 06/15/20 release levothyroxine 75 mcg tablet 75 mcg PO DAILY 90 Days #90 tab 08/19/20 hydroxyzine HCl 25 mg PO TID PRN #20 tab 12/02/20 prednisone 40 mg PO DAILY 4 Days #8 tab 12/02/20 Allergies Allergy/AdvReac Type Severity Reaction Status Date / Time aspirin [ASPIRIN] Allergy Severe SWELLING Verified 10/12/20 11:54 ibuprofen [From Motrin] Allergy Mild SWELLING Verified 10/12/20 11:54 lactose Allergy Mild Diarrhea Uncoded 09/20/20 10:27 Review of Systems Review of Systems: Constitutional : No Weight loss, No Fever, No Chills, No Fatigue, No Malaise ENT/Mouth : No sore throat, No Rhinorrhea Eyes: No Eye Pain, No Swelling, No Redness Cardiovascular : No Chest Pain, No SOB, No Dyspnea on Exertion, No Orthopnea, No Edema, No Palpitations Respiratory : No Cough, No Sputum, No Wheezing Gastrointestinal : No Nausea, No Vomiting, No Diarrhea, No Constipation, No abdominal Pain, No Hematochezia, No Melena Genitourinary : No Dysuria, No Urinary Frequency, No Hematuria, Musculoskeletal : No joint pain, No Myalgias, No Joint Swelling Skin : No Skin Lesions, No rash Neuro : No Weakness, No Numbness, No Dizziness, No Headache Psych : pos Anxiety/Panic, No Depression Heme/Lymph: No Bruising, No Bleeding,No Lymphadenopathy Endocrine : No Polyuria, No Polydipsia All other systems reviewed and are negative [facility] Past Medical History Attestation statement: The following information was validated with the patient. Medical History Acid reflux Anemia Anxiety Asthma Depression History of back pain History of colon polyps History of palpitations HTN (hypertension) Hx of migraines Hypothyroidism Seasonal allergies Thyroid condition Tubular adenoma Surgical History History of colonoscopy History of esophagogastroduodenoscopy (EGD) History of nasal septoplasty History of tubal ligation Hx of bilateral breast reduction surgery Family History Family History Father Family history of high blood pressure Hx of type 1 diabetes mellitus Mother No problems noted. Social History Social History Household Members: None Alcohol intake: never Smoking Status: Never smoker Advance Directives: Yes Advance Directives Information Provided: No Advance Directives on File: No Patient : No Physical Exam Vital Signs: Vital Signs: Last Vital Signs Temp 98.2 F 12/02/20 10:04 Pulse 102 H 12/02/20 11:09 Resp 18 12/02/20 11:09 BP 156/91 H 12/02/20 11:09 Pulse Ox 97 12/02/20 11:09 Body Mass Index 28.6 Appearance: Alert. Oriented X3. No acute distress. Anxious Eyes: Pupils equal, round and reactive to light. ENT: Pharynx normal. Neck: Normal inspection. Neck supple. CVS: tachycardic heart rate and rhythm. Pulses normal. Respiratory: No respiratory distress. Breath sounds normal. Abdomen: Soft and nontender. Skin: Skin warm and dry. Normal skin color. Normal skin turgor. Extremities: No lower extremity edema. No calf ttp Neuro: Oriented X 3. No motor deficit. No sensory deficit. Medical Decision Making MDM Narrative Medical decision making narrative: 50 yo female with asthma, hypothyroidism seen today for asthma given IV steroids and neb, started on 40mg prednisone daily has not taken the steroid yet, she is very anxious and worked up at this time, she checked her blood sugar this AM and it was 194 so she is very worried, discussed side effects of steroids - she is not sure she is going to take them, discussed in the acute setting and one time elevation we will not start her on medications and it is likely side effect of steroids - she needs to monitor her during the course of treatment and after, PO ativan for anxiety ordered, blood sugar check, anticipate DC home with expected course and precautions Lab Data Labs: Lab Results 12/02/20 Range/Units 10:07 POC Glucose 222 H (60-115) mg/dL Discharge Plan Discharge Clinical Impression: Acute hyperglycemia Steroid side effects Qualifiers: Encounter type: initial encounter Qualified Code(s): T38.0X5A - Adverse effect of glucocorticoids and synthetic analogues, initial encounter Patient Disposition: Home, Self-Care Instructions: Prednisone (By mouth), Nondiabetic Hyperglycemia (ED) Additional Instructions: return to ED for any worsening symptoms or concerns blood sugars consistently in the 300s are not normal, steroids cause elevated blood sugars it is a common side effect if your blood sugar remains high this could be a sign a diabetes particularly after you finish the course of steroids Prescriptions: New hydroxyzine HCl 25 mg tablet 25 mg PO TID PRN (Reason: anxiety) Qty: 20 RF: 0 No Action prednisone 20 mg tablet 40 mg PO DAILY 4 Days Qty: 8 RF: 0 levothyroxine 75 mcg tablet 75 mcg PO DAILY 90 Days Qty: 90 RF: 3 multivitamin Tablet 1 tab PO DAILY RF: 0 omeprazole 20 mg capsule,delayed release(DR/EC) 20 mg PO BID Qty: 30 RF: 5 Referrals: Ashlee Meza MD [Primary Care Provider] - 3 days (Saturday if not better)
[2020-12-02 10:04] VITALS: BP 169/84; PULSE 127; RESP 16; TEMP 36.8; O2SAT 98; BMI 28.6
[2020-12-02 10:11] LABS: Glucose, Whole Blood 222 mg/dL (60-115)
[2020-12-02] MEDS: LORazepam 1 MG TABLET PO (10:25)
[2020-12-02 11:09] VITALS: BP 156/91; PULSE 102; RESP 18; O2SAT 97
[2020-12-02 11:13] LABS: Glucose, Whole Blood 201 mg/dL (60-115)
== END 2020-12-02 11:27 | disposition home or self-care (01) ==
PROVIDERS: Emergency Provider Emergency Medicine; PCP Family Medicine
DX: R73.9 Hyperglycemia, unspecified (principal); Z79.899 Other long term (current) drug therapy
CPT/HCPCS: 82947; 99283

== ENCOUNTER 2021-01-10 09:00 | Outpatient (REF) | payer MEDICAID, SELFPAY ==
[2021-01-10 11:40] LABS: Free T4 (Free Thyroxine) 0.93 ng/dL (0.71-1.85); Thyroid Stimulating Hormone 2.72 uIU/mL (0.32-4.0)
== END 2021-01-10 09:01 | disposition home or self-care (01) ==
LOC: HO.LAB 09:00
PROVIDERS: PCP Family Medicine; Visit Provider Internal Medicine Endocrinology, Diabetes & Metabolism
DX: E03.8 Other specified hypothyroidism (principal); E06.3 Autoimmune thyroiditis
CPT/HCPCS: 36415; 84439; 84443

== ENCOUNTER → 2021-02-14 09:47 | Outpatient (BNVA) | payer MEDICAID, SELFPAY | PROVIDERS: PCP Family Medicine; Visit Provider Internal Medicine Endocrinology, Diabetes & Metabolism ==

== ENCOUNTER 2021-02-21 08:10 | Outpatient (REF) | payer MEDICAID, SELFPAY ==
[2021-02-21 09:01] LABS: Estimated Average Glucose 117 mg/dL; Hemoglobin A1c % 5.7 %
[2021-02-21 09:45] LABS: Cholesterol 202 mg/dL; HDL Cholesterol 61 mg/dL; LDL Cholesterol Calculated 123 mg/dl; Triglycerides 92 mg/dL
== END 2021-02-21 08:11 | disposition home or self-care (01) ==
LOC: HO.LAB 08:10
PROVIDERS: PCP Family Medicine; Visit Provider Family Medicine
DX: E11.9 Type 2 diabetes mellitus without complications (principal)
CPT/HCPCS: 36415; 80061; 83036

== ENCOUNTER 2021-04-18 09:08 | Outpatient (REF) | payer MEDICAID, SELFPAY ==
[2021-04-18 10:44] LABS: Free T4 (Free Thyroxine) 0.78 ng/dL (0.71-1.85)
[2021-04-20 07:01] LABS: Thyroglobulin Antibodies <1 IU/mL (< or = 1); Thyroid Peroxidase Antibodies 11 IU/mL (<9)
== END 2021-04-18 09:09 | disposition home or self-care (01) ==
LOC: HO.LAB 09:08
PROVIDERS: PCP Family Medicine; Visit Provider Nurse Practitioner Gerontology
DX: E03.8 Other specified hypothyroidism (principal); E06.3 Autoimmune thyroiditis
CPT/HCPCS: 36415; 84439; 84443; 86376; 86800

== ENCOUNTER → 2021-05-11 14:04 | Outpatient (BNVA) | payer MEDICAID, SELFPAY | PROVIDERS: PCP Family Medicine; Visit Provider Physician Assistant ==

== ENCOUNTER 2021-05-13 15:27 | Emergency (ER) | payer MEDICAID, SELFPAY ==
[2021-05-13 18:33] LABS: MANUAL DIFF FLAG NO
[2021-05-13 18:36] VITALS: BP 154/84; PULSE 95; RESP 18; TEMP 37.1; O2SAT 100
[2021-05-13 18:44] LABS: Basophils Percent Auto 0.3 % (0-2); Eosinophils Absolute Auto 0.1 X10*3/uL (0.0-0.4); Eosinophils Percent Auto 1.6 % (0-4); Hematocrit 38.6 % (37-47); Hemoglobin 12.9 g/dl (12.0-16.0); Imm Gran Abs Auto 0.01 X10*3/uL (0.00-0.03); Imm Gran Pct Auto 0.2 % (0.0-0.4); Lymphocytes Absolute Auto 2.2 X10*3/uL (1.2-4.9); Lymphocytes Percent Auto 33.3 % (20-40); Mean Corpuscular HGB Conc 33.4 g/dl (31.0-35.0); Mean Corpuscular Hemoglobin 30.9 pg (27.0-33.0); Mean Corpuscular Volume 92.3 fL (80-98); Mean Platelet Volume 10.5 fL (9.4-12.3); Monocytes Absolute Auto 0.3 X10*3/uL (0.1-1.2); Monocytes Percent Auto 4.5 % (2-11); Neutrophils Absolute Auto 3.9 X10*3/uL (2.0-8.3); Neutrophils Percent Auto 60.1 % (45-73); Platelet Count 255 X10*3/uL (160-400); Red Blood Count 4.18 X10*6/uL (4.20-5.50); Red Cell Distribution Width 12.5 % (11.0-16.0); White Blood Count 6.5 X10*3/uL (4.8-10.8)
[2021-05-13 18:51] LABS: Alanine Aminotransferase 27 U/L (0-31); Albumin Level 4.6 g/dL (3.5-5.0); Alkaline Phosphatase 106 U/L (39-117); Anion Gap 12 (12-20); Aspartate Amino Transferase 24 U/L (5-31); Bilirubin Total 0.4 mg/dL (0.0-1.0); Blood Urea Nitrogen 15 mg/dL (9-16); Calcium 10.1 mg/dL (8.4-10.2); Carbon Dioxide 26 mmol/L (22-29); Chloride 107 mmol/L (96-108); Estimated Glomerular Filt Rate > 60; Glucose Random 121 mg/dL (60-115); Sodium 141 mmol/L (135-145); Total Protein 7.9 g/dL (6.5-8.0)
[2021-05-13 19:29] VITALS: BP 158/89; PULSE 102; RESP 16; TEMP 36.7; O2SAT 100; BMI 26.0
[2021-05-13 19:48] LABS: Appearance Urine CLEAR; Color Urine STRAW; Glucose Urine UA NEG (NEG); Leukocyte Esterase Urine NEG (NEG); Nitrite Urine NEG (NEG); Specific Gravity - Urine <= 1.005 (1.005-1.025); Urine Blood NEG (NEG); Urine Ketones NEG (NEG); Urine Protein NEG (NEG-TRACE)
[2021-05-13 20:02] LABS: COVID-19 Test Negative (Negative)
[2021-05-13 21:02] VITALS: BP 158/92; PULSE 92; RESP 16; O2SAT 99
--- NOTE | 2021-05-13 21:48 | ED.HA ---
HPI - Headache General Chief Complaint: Headache Stated Complaint: Hypertension Time Seen by Provider: 05/13/21 21:48 Source: patient and per diem interpreter Mode of arrival: ambulatory History of Present Illness HPI Narrative: 50-year-old female with history of hypertension comes in with head pressure and then checked her blood pressure noted that it was 154/100. She denies taking any Tylenol or ibuprofen and on further questioning reports that she does not take her blood pressure medication each day as prescribed and she is placed medication in her thyroid medication bottle. Otherwise, she denies any fever, chills, nausea, vomiting, abdominal pain, diarrhea, urinary pain/burning/frequency, and denies any shortness of breath or chest pain/palpitations. She denies any visual/auditory/speech changes and denies any extremity numbness/tingling/weakness. Related Data Home Medications Medication Instructions Recorded Confirmed multivitamin 1 tab PO DAILY 06/15/20 02/14/21 albuterol sulfate 90 mcg/actuation 2 puff INHALATION Q6H PRN 02/14/21 02/14/21 aerosol inhaler cetirizine 10 mg tablet 10 mg PO DAILY PRN 02/14/21 02/14/21 fluticasone propionate 110 1 puff INHALATION BID 02/14/21 02/14/21 mcg/actuation HFA aerosol inhaler (Flovent HFA) pantoprazole 40 mg tablet,delayed 40 mg PO DAILY 02/14/21 02/14/21 release cholecalciferol (vitamin D3) 50 50 mcg PO DAILY 05/11/21 mcg (2,000 unit) tablet Previous Rx's Medication Instructions Recorded hydroxyzine HCl 25 mg tablet 25 mg PO TID PRN #20 tab 12/02/20 levothyroxine 75 mcg tablet 75 mcg PO DAILY 90 Days #90 tab 02/14/21 famotidine 20 mg tablet 20 mg PO BEDTIME #30 tab 05/11/21 Allergies Allergy/AdvReac Type Severity Reaction Status Date / Time aspirin [ASPIRIN] Allergy Severe SWELLING Verified 05/13/21 19:28 ibuprofen [From Motrin] Allergy Mild SWELLING Verified 05/13/21 19:28 lactose Allergy Mild Diarrhea Uncoded 05/11/21 14:05 Review of Systems Review of Systems: Pertinent positives and negatives as stated in HPI 10 point review of systems otherwise negative. [facility] Past Medical History Medical History Acid reflux Anemia Anxiety Asthma Depression History of back pain History of colon polyps History of palpitations HTN (hypertension) Hx of migraines Hypothyroidism Seasonal allergies Thyroid condition Tubular adenoma Surgical History History of colonoscopy History of esophagogastroduodenoscopy (EGD) History of nasal septoplasty History of tubal ligation Hx of bilateral breast reduction surgery Family History Family History Father Family history of high blood pressure Hx of type 1 diabetes mellitus Mother No problems noted. Social History Social History Household Members: None Alcohol intake: never Patient Tobacco Use Status: Never used Tobacco Advance Directives: No Advance Directives Information Provided: No Physical Exam Vital Signs: Vital Signs: Last Vital Signs Temp 98.1 F 05/13/21 19:29 Pulse 92 05/13/21 21:02 Resp 16 05/13/21 21:02 BP 158/92 H 05/13/21 21:02 Pulse Ox 99 05/13/21 21:02 Body Mass Index 26.0 VITAL SIGNS: Reviewed. GENERAL: Well developed, well nourished, in no acute distress. HEAD: Normocephalic/atraumatic EYES: PERRLA, EOMI OROPHARYNX: no oral lesions noted, posterior pharynx clear and non-erythematous without noted tonsillar enlargement/erythema/exudates NECK: Supple, no adenopathy LUNGS: Normal breath sounds. No adventitious sounds or accessory muscle use. SpO2<99> CARDIOVASCULAR: Regular rate and rhythm without noted murmurs, no JVD or lower extremity edema. ABDOMEN: Soft, non-tender, non-distended with bowel sounds. SKIN: Inspection of the skin reveals no rashes NEUROLOGIC: Alert and oriented x 4. Strength and sensation to light touch were grossly intact x 4, no facial asymmetry, no pronator drift, cranial nerves 2-12 are grossly intact. Course Course Course Narrative: 50-year-old female with history and clinical presentation consistent with hypertension likely secondary to poor compliance with medications. Patient was provided with Tylenol for headache and she has since taken her prescribed blood pressure medication. There are no focal findings. Review of all investigations without acute findings. MDM - Headache Lab Data Result diagrams: 05/13/21 18:29 05/13/21 18:29 Labs: Lab Results 05/13/21 05/13/21 05/13/21 Range/Units 18:29 18:29 19:44 WBC 6.5 (4.8-10.8) X10*3/uL RBC 4.18 L (4.20-5.50) X10*6/uL Hgb 12.9 (12.0-16.0) g/dl Hct 38.6 (37-47) % MCV 92.3 (80-98) fL MCH 30.9 (27.0-33.0) pg MCHC 33.4 (31.0-35.0) g/dl RDW 12.5 (11.0-16.0) % Plt Count 255 (160-400) X10*3/uL MPV 10.5 (9.4-12.3) fL Immature Gran % (Auto) 0.2 (0.0-0.4) % Neut % (Auto) 60.1 (45-73) % Lymph % (Auto) 33.3 (20-40) % [place] % (Auto) 4.5 (2-11) % Eos % (Auto) 1.6 (0-4) % Baso % (Auto) 0.3 (0-2) % Lymph # (Auto) 2.2 (1.2-4.9) X10*3/uL [place] # (Auto) 0.3 (0.1-1.2) X10*3/uL Eos # (Auto) 0.1 (0.0-0.4) X10*3/uL Baso # (Auto) 0.0 (0.0-0.2) X10*3/uL Abs Immat Gran (auto) 0.01 (0.00-0.03) X10*3/uL Absolute Neuts (auto) 3.9 (2.0-8.3) X10*3/uL Absolute Nucleated RBC 0.000 (0.0-0.012) X10*3/uL Nucleated RBC % (auto) 0.0 (0.0-0.2) /100WBC Sodium 141 (135-145) mmol/L Potassium 4.0 (3.3-5.1) mmol/L Chloride 107 (96-108) mmol/L Carbon Dioxide 26 (22-29) mmol/L Anion Gap 12 (12-20) BUN 15 (9-16) mg/dL Creatinine 0.94 (0.5-1.4) mg/dL Estim Creat Clear Calc TNP Estimated GFR > 60 Random Glucose 121 H (60-115) mg/dL Calcium 10.1 D (8.4-10.2) mg/dL Total Bilirubin 0.4 (0.0-1.0) mg/dL AST 24 D (5-31) U/L ALT 27 (0-31) U/L Alkaline Phosphatase 106 (39-117) U/L Total Protein 7.9 (6.5-8.0) g/dL Albumin 4.6 (3.5-5.0) g/dL Urine Color STRAW Urine Appearance CLEAR Urine pH 6.0 (5.0-8.0) Ur Specific [place] <= 1.005 (1.005-1.025) Urine Protein NEG (NEG-TRACE) MG/DL Urine Glucose (UA) NEG (NEG) MG/DL Urine Ketones NEG (NEG) MG/DL Urine Blood NEG (NEG) Urine Nitrite NEG (NEG) Ur Leukocyte Esterase NEG (NEG) COVID-19 (NAHID) (Negative) COVID-19 Clin Com 05/13/21 Range/Units 19:44 WBC (4.8-10.8) X10*3/uL RBC (4.20-5.50) X10*6/uL Hgb (12.0-16.0) g/dl Hct (37-47) % MCV (80-98) fL MCH (27.0-33.0) pg MCHC (31.0-35.0) g/dl RDW (11.0-16.0) % Plt Count (160-400) X10*3/uL MPV (9.4-12.3) fL Immature Gran % (Auto) (0.0-0.4) % Neut % (Auto) (45-73) % Lymph % (Auto) (20-40) % [place] % (Auto) (2-11) % Eos % (Auto) (0-4) % Baso % (Auto) (0-2) % Lymph # (Auto) (1.2-4.9) X10*3/uL [place] # (Auto) (0.1-1.2) X10*3/uL Eos # (Auto) (0.0-0.4) X10*3/uL Baso # (Auto) (0.0-0.2) X10*3/uL Abs Immat Gran (auto) (0.00-0.03) X10*3/uL Absolute Neuts (auto) (2.0-8.3) X10*3/uL Absolute Nucleated RBC (0.0-0.012) X10*3/uL Nucleated RBC % (auto) (0.0-0.2) /100WBC Sodium (135-145) mmol/L Potassium (3.3-5.1) mmol/L Chloride (96-108) mmol/L Carbon Dioxide (22-29) mmol/L Anion Gap (12-20) BUN (9-16) mg/dL Creatinine (0.5-1.4) mg/dL Estim Creat Clear Calc Estimated GFR Random Glucose (60-115) mg/dL Calcium (8.4-10.2) mg/dL Total Bilirubin (0.0-1.0) mg/dL AST (5-31) U/L ALT (0-31) U/L Alkaline Phosphatase (39-117) U/L Total Protein (6.5-8.0) g/dL Albumin (3.5-5.0) g/dL Urine Color Urine Appearance Urine pH (5.0-8.0) Ur Specific [place] (1.005-1.025) Urine Protein (NEG-TRACE) MG/DL Urine Glucose (UA) (NEG) MG/DL Urine Ketones (NEG) MG/DL Urine Blood (NEG) Urine Nitrite (NEG) Ur Leukocyte Esterase (NEG) COVID-19 (NAHID) Negative (Negative) COVID-19 Clin Com See Note ECG Data Attestation: I personally reviewed and interpreted this ECG as follows: Prior ECG tracings: available for review (12/02/2020 no acute changes on comparison) Interpretation: Normal sinus rhythm, HR-78, no STEMI, OR/QRS/QTC is within normal limits. Discharge Plan Discharge Clinical Impression: Hypertension, Headache Patient Disposition: Home, Self-Care Instructions: DASH Eating Plan (ED), Hypertension (ED) Additional Instructions: 1. Reanude todos los medicamentos caseros seg?n lo prescrito. Recomendamos encarecidamente que guarde el medicamento en el recipiente recetado para facilitar christianson identificaci?n. 2. Bruce un seguimiento con christianson proveedor de atenci?n primaria para wyatt reevaluaci?n. Regrese a la arun de emergencias por un empeoramiento hany de los s?ntomas. Prescriptions: No Action hydroxyzine HCl 25 mg tablet 25 mg PO TID PRN (Reason: anxiety) Qty: 20 RF: 0 cetirizine 10 mg tablet 10 mg PO DAILY PRNRF: 0 pantoprazole 40 mg tablet,delayed release (DR/EC) 40 mg PO DAILY RF: 0 albuterol sulfate 90 mcg/actuation HFA aerosol inhaler 2 puff inhalation Q6H PRNRF: 0 Flovent HFA 110 mcg/actuation HFA aerosol inhaler 1 puff inhalation BID RF: 0 levothyroxine 75 mcg tablet 75 mcg PO DAILY 90 Days Qty: 90 RF: 3 multivitamin Tablet 1 tab PO DAILY RF: 0 cholecalciferol (vitamin D3) 50 mcg (2,000 unit) tablet 50 mcg PO DAILY RF: 0 famotidine 20 mg tablet 20 mg PO BEDTIME Qty: 30 RF: 3 Referrals: Ashlee Meza MD [Primary Care Provider] - 2 days Print Language: Northern Irish
--- NOTE | 2021-05-13 21:53 | ECG_ITS ---
Test Reason : chest pain Blood Pressure : / mmHG Vent. Rate : 078 BPM Atrial Rate : 078 BPM P-R Int : 140 ms QRS Dur : 082 ms QT Int : 358 ms P-R-T Axes : 033 038 -06 degrees QTc Int : 408 ms Normal sinus rhythm Nonspecific T wave abnormality Anterior leads Abnormal ECG T wave amplitude has decreased in Anterior leads Referred By: Alicja Rosa Electronically Signed By:ALBERTO LOZANO MD
[2021-05-13] MEDS: Acetaminophen 325 MG TABLET 975 MG PO (22:12)
== END 2021-05-13 22:27 | disposition home or self-care (01) ==
PROVIDERS: Emergency Provider Student in an Organized Health Care Education/Training Program; PCP Family Medicine
DX: R51.9 Headache, unspecified (principal); I10 Essential (primary) hypertension; Z91.14 Patient's other noncompliance with medication regimen; Z20.822 Contact with and (suspected) exposure to COVID-19
CPT/HCPCS: 36415; 80053; 81003; 85025; 87635; 93005; 99283; 99284

== ENCOUNTER 2021-06-05 09:15 | Outpatient (REF) | payer MEDICAID, SELFPAY ==
--- NOTE | ~2021-06-05 | US_ITS ---
EXAMINATION: US THYROID CLINICAL INFORMATION: Hypothyroidism COMPARISON: None TECHNIQUE: Linear transducer valentin-scale and color Doppler examination with attention to the region of the thyroid. FINDINGS: SIZE: Measurements of the thyroid lobes and nodules are given in sagittal, anteroposterior and transverse dimensions respectively. Right Thyroid Lobe: 3.9 x 1.2 x 0.8 cm, volume 2.0 mL. Parenchyma: The gland echotexture is heterogeneous. Thyroid vascularity is normal. Left Thyroid Lobe: 3.0 x 0.6 x 1.0 cm, volume 0.9 mL. Parenchyma: The gland echotexture is heterogeneous. Thyroid vascularity is normal. Isthmus: 0.1 cm in maximum AP dimension. Estimated total number of nodules greater than or equal to 1 cm: 0. Clinical Medical Transcriptionist nodules are described as follows: 1. Location: Left lower. Size: 0.5 x 0.3 x 0.4 cm, volume 0.03 mL. Nodule characteristics: Composition: Mixed cystic and solid (1). Echogenicity: Hypoechoic (2). Shape: Not taller than wide (0). Margins: Smooth (0). Echogenic Foci: None (0). ACR TI-RADS total points: 3 ACR TI-RADS category: 3 NODES: No lymphadenopathy is seen in the tissue surrounding the thyroid gland. US/US thyroid IMPRESSION: Atrophic, heterogeneous thyroid gland which demonstrates only a single 5 mm TR 3 nodule. No follow-up imaging required per ACR recommendations. ACR TI-RADS RECOMMENDATION REFERENCE: Ultrasound-guided fine-needle aspiration, followup ultrasound, no further follow up. * TR3 (3 points): FNA if more than or equal to 2.5 cm in maximum dimension, followup ultrasound in 1, 3 and 5 years if 1.5 to 2.4 cm in maximum dimension. * TR3, TR4 or TR5 nodules that are below the size threshold for follow up receive no follow up.
== END 2021-06-05 09:16 | disposition home or self-care (01) ==
LOC: HO.HMGCX 09:15
PROVIDERS: PCP Family Medicine; Visit Provider Nurse Practitioner Gerontology
DX: E03.8 Other specified hypothyroidism (principal); E06.3 Autoimmune thyroiditis
CPT/HCPCS: 76536

== ENCOUNTER 2021-07-12 09:07 | Outpatient (REF) | payer MEDICAID, SELFPAY ==
[2021-07-12 09:42] LABS: MANUAL DIFF FLAG NO
[2021-07-12 10:11] LABS: Basophils Percent Auto 0.4 % (0-2); Eosinophils Absolute Auto 0.2 X10*3/uL (0.0-0.4); Eosinophils Percent Auto 3.7 % (0-4); Hematocrit 37.4 % (37.0-47.0); Hemoglobin 12.3 g/dl (12.0-16.0); Imm Gran Abs Auto 0.01 X10*3/uL (0.00-0.03); Imm Gran Pct Auto 0.2 % (0.0-0.4); Lymphocytes Absolute Auto 1.9 X10*3/uL (1.2-4.9); Lymphocytes Percent Auto 40.9 % (20-40); Mean Corpuscular HGB Conc 32.9 g/dl (31.0-35.0); Mean Corpuscular Hemoglobin 30.5 pg (27.0-33.0); Mean Corpuscular Volume 92.8 fL (80.0-98.0); Mean Platelet Volume 10.4 fL (9.4-12.3); Monocytes Absolute Auto 0.3 X10*3/uL (0.1-1.2); Monocytes Percent Auto 5.9 % (2-11); Neutrophils Absolute Auto 2.2 x10*3/uL (2.0-8.3); Neutrophils Percent Auto 48.9 % (45-73); Platelet Count 247 X10*3/uL (160-400); Red Blood Count 4.03 X10*6/uL (4.20-5.50); Red Cell Distribution Width 12.2 % (11.0-16.0); White Blood Count 4.6 X10*3/uL (4.8-10.8)
[2021-07-12 10:31] LABS: Prothrombin Time 10.9 SEC (9.9-13.0)
[2021-07-12 10:33] LABS: Alanine Aminotransferase 25 U/L (0-31); Albumin Level 4.2 g/dL (3.5-5.0); Aspartate Amino Transferase 21 U/L (5-31); Bilirubin Total 0.5 mg/dL (0.0-1.0); Estimated Glomerular Filt Rate > 60
[2021-07-12 10:34] LABS: Partial Thromboplastin Time 34.5 SEC (24.1-38.0)
[2021-07-12 10:49] LABS: HIV AB/AG Nonreactive (Nonreactive); HIV Num 1 0.06 S/CO (0.00-0.99)
[2021-07-12 10:53] LABS: Free T4 (Free Thyroxine) 1.07 ng/dL (0.71-1.85); Thyroid Stimulating Hormone 0.94 uIU/mL (0.32-4.0)
[2021-07-12 11:44] LABS: Syphilis Screen Nonreactive (Nonreactive)
[2021-07-12 16:18] LABS: CT PCR NOT DETECTED (Not Detect.); NG PCR NOT DETECTED (Not Detect.)
[2021-07-14 17:50] LABS: Hepatitis B Viral DNA Qn - cp 1.54 Log IU/mL (NOT DETECTED); Hepatitis B Viral DNA Qn-IU/mL 35 IU/mL (NOT DETECTED)
[2021-07-18 15:02] LABS: FIB-ALT 21 U/L (6-29); FIB-Alpha-2-Macroglobulin 209 mg/dL (106-279); FIB-Apolipoprotein A1 176 mg/dL (101-198); FIB-GGT 11 U/L (3-70); FIB-Haptoglobin 127 mg/dL (43-212); FIB-Total Bilirubin 0.5 mg/dL (0.2-1.2); Liver Fibrosis Stage F0; Nec Inflam Act Grade A0; Nec Inflam Act Score 0.06
[2021-07-25 12:46] LABS: Hepatitis Delta Antibody NEGATIVE
== END 2021-07-12 09:08 | disposition home or self-care (01) ==
LOC: HO.LAB 09:07
PROVIDERS: Nurse Practitioner Gerontology; PCP Family Medicine; Visit Provider Internal Medicine Infectious Disease
DX: Z01.84 Encounter for antibody response examination (principal); Z11.4 Encounter for screening for human immunodeficiency virus [HIV]; Z11.3 Encounter for screening for infections with a predominantly sexual mode of transmission; E03.8 Other specified hypothyroidism; E06.3 Autoimmune thyroiditis; B97.81 Human metapneumovirus as the cause of diseases classified elsewhere
CPT/HCPCS: 36415; 81596; 82040; 82247; 82565; 84439; 84443; 84450; 84460; 85025; 85610; 85730; 86692; 86780; 87389; 87491; 87517; 87591

== ENCOUNTER 2021-08-26 08:29 | Outpatient (REF) | payer MEDICAID, SELFPAY ==
[2021-08-26 08:55] LABS: MANUAL DIFF FLAG NO
[2021-08-26 09:02] LABS: Basophils Percent Auto 0.5 % (0-2); Eosinophils Absolute Auto 0.2 X10*3/uL (0.0-0.4); Eosinophils Percent Auto 4.1 % (0-4); Hematocrit 37.6 % (37.0-47.0); Hemoglobin 12.5 g/dl (12.0-16.0); Imm Gran Abs Auto 0.01 X10*3/uL (0.00-0.03); Imm Gran Pct Auto 0.3 % (0.0-0.4); Lymphocytes Absolute Auto 1.6 X10*3/uL (1.2-4.9); Lymphocytes Percent Auto 40.9 % (20-40); Mean Corpuscular HGB Conc 33.2 g/dl (31.0-35.0); Mean Corpuscular Hemoglobin 30.9 pg (27.0-33.0); Mean Corpuscular Volume 92.8 fL (80.0-98.0); Mean Platelet Volume 10.2 fL (9.4-12.3); Monocytes Absolute Auto 0.3 X10*3/uL (0.1-1.2); Monocytes Percent Auto 6.9 % (2-11); Neutrophils Absolute Auto 1.8 x10*3/uL (2.0-8.3); Neutrophils Percent Auto 47.3 % (45-73); Platelet Count 252 X10*3/uL (160-400); Red Blood Count 4.05 X10*6/uL (4.20-5.50); Red Cell Distribution Width 12.4 % (11.0-16.0); White Blood Count 3.9 X10*3/uL (4.8-10.8)
[2021-08-26 09:11] LABS: Estimated Average Glucose 117 mg/dL; Hemoglobin A1c % 5.7 %
[2021-08-26 09:51] LABS: Alanine Aminotransferase 24 U/L (0-31); Alkaline Phosphatase 86 U/L (39-117); Anion Gap 12 (12-20); Aspartate Amino Transferase 19 U/L (5-31); Bilirubin Direct 0.3 mg/dL (0.0-0.5); Bilirubin Total 0.8 mg/dL (0.0-1.0); Blood Urea Nitrogen 14 mg/dL (9-16); Calcium 9.9 mg/dL (8.4-10.2); Carbon Dioxide 27 mmol/L (22-29); Chloride 108 mmol/L (96-108); Cholesterol 202 mg/dL; Estimated Glomerular Filt Rate > 60; Glucose Fasting 101 mg/dL (60-99); HDL Cholesterol 56 mg/dL; Iron 160 mcg/dL (30-160); LDL Cholesterol Calculated 127 mg/dl; Percent Iron Saturation 43 % (15-50); Potassium 4.5 mmol/L (3.3-5.1); Sodium 142 mmol/L (135-145); Total Iron Binding Capacity 368 mcg/dL (228-428); Total Protein 7.2 g/dL (6.5-8.0); Triglycerides 95 mg/dL; Unsaturated Iron Binding 208 ug/dL
[2021-08-26 10:12] LABS: Ferritin 44 ng/mL (10-250); TSH reflex Free T4 0.41 uIU/mL (0.32-4.0); Vitamin D 25-OH Total 27.9 ng/mL (>30)
[2021-08-28 04:39] LABS: Folate 13.6 ng/mL (> or = 4.0); Vitamin B12 509 pg/mL (200-900)
[2021-08-28 04:45] LABS: HIV AB/AG Nonreactive (Nonreactive); HIV Num 1 0.07 S/CO (0.00-0.99)
[2021-08-28 04:46] LABS: ~HepC Num1 0.28 S/CO (0.00-0.79); ~Hepatitis C Antibody Nonreactive (Nonreactive)
== END 2021-08-26 08:30 | disposition home or self-care (01) ==
LOC: HO.LAB 08:29
PROVIDERS: Absent Provider Family Medicine; PCP Family Medicine; Visit Provider Internal Medicine
DX: Z00.00 Encounter for general adult medical examination without abnormal findings (principal); Z11.4 Encounter for screening for human immunodeficiency virus [HIV]
CPT/HCPCS: 36415; 80048; 80061; 80076; 82306; 82607; 82728; 82746; 83036; 83540; 84443; 85025; 86803; 87389

== ENCOUNTER 2021-11-09 14:16 | Outpatient (REF) | payer MEDICAID, SELFPAY ==
[2021-11-09 15:48] LABS: MANUAL DIFF FLAG NO
[2021-11-09 15:59] LABS: Basophils Percent Auto 0.4 % (0-2); Eosinophils Absolute Auto 0.2 X10*3/uL (0.0-0.4); Eosinophils Percent Auto 3.8 % (0-4); Hematocrit 36.5 % (37.0-47.0); Imm Gran Abs Auto 0.01 X10*3/uL (0.00-0.03); Imm Gran Pct Auto 0.2 % (0.0-0.4); Lymphocytes Absolute Auto 2.3 X10*3/uL (1.2-4.9); Lymphocytes Percent Auto 44.2 % (20-40); Mean Corpuscular HGB Conc 32.9 g/dl (31.0-35.0); Mean Corpuscular Hemoglobin 30.3 pg (27.0-33.0); Mean Corpuscular Volume 92.2 fL (80.0-98.0); Mean Platelet Volume 10.3 fL (9.4-12.3); Monocytes Absolute Auto 0.3 X10*3/uL (0.1-1.2); Monocytes Percent Auto 5.7 % (2-11); Neutrophils Absolute Auto 2.4 x10*3/uL (2.0-8.3); Neutrophils Percent Auto 45.7 % (45-73); Platelet Count 234 X10*3/uL (160-400); Red Blood Count 3.96 X10*6/uL (4.20-5.50); White Blood Count 5.3 X10*3/uL (4.8-10.8)
[2021-11-09 16:20] LABS: Alanine Aminotransferase 27 U/L (0-31); Aspartate Amino Transferase 33 U/L (5-31); Estimated Glomerular Filt Rate > 60
[2021-11-09 18:04] LABS: CT PCR NOT DETECTED (Not Detect.); NG PCR NOT DETECTED (Not Detect.)
[2021-11-10 07:41] LABS: ~HepC Num1 0.18 S/CO (0.00-0.79); ~Hepatitis C Antibody Nonreactive (Nonreactive)
[2021-11-10 07:43] LABS: HIV AB/AG Nonreactive (Nonreactive); HIV Num 1 0.12 S/CO (0.00-0.99)
[2021-11-12 11:36] LABS: Hepatitis B Viral DNA Qn - cp 1.46 Log IU/mL (NOT DETECTED); Hepatitis B Viral DNA Qn-IU/mL 29 IU/mL (NOT DETECTED)
== END 2021-11-09 14:17 | disposition home or self-care (01) ==
LOC: HO.LAB 14:16
PROVIDERS: Internal Medicine Infectious Disease; PCP Family Medicine; Visit Provider Physician Assistant
DX: Z11.4 Encounter for screening for human immunodeficiency virus [HIV] (principal); Z11.3 Encounter for screening for infections with a predominantly sexual mode of transmission; B19.10 Unspecified viral hepatitis B without hepatic coma
CPT/HCPCS: 36415; 82565; 84450; 84460; 85025; 86803; 87389; 87491; 87517; 87591

== ENCOUNTER 2021-12-11 09:57 | Outpatient (REF) | payer MEDICAID, SELFPAY ==
--- NOTE | ~2021-12-11 | US_ITS ---
EXAMINATION: US ABDOMEN COMPLETE CLINICAL INFORMATION: HBV, HCC screen. COMPARISON: Ultrasound abdomen complete 01/22/2020 and 08/06/2017. TECHNIQUE: Real-time imaging of the abdominal viscera. FINDINGS: PANCREAS: Visualized portions unremarkable; tail obscured by interposed bowel gas ABDOMINAL AORTA: The proximal, mid, and distal segments are normal in caliber. INFERIOR VENA CAVA: Visualized portions are normal. LIVER: The liver is normal in size. The liver contour is normal. There is diffuse increased and heterogeneous parenchymal echogenicity, consistent with infiltrative hepatocellular disease. No focal hepatic lesion. There is no intrahepatic biliary duct dilatation seen. GALLBLADDER: Normal. The gallbladder is physiologically distended without evidence of stones, sludge, polyps, wall thickening or pericholecystic fluid. COMMON BILE DUCT: Normal in caliber measuring 0.2 cm in diameter. RIGHT KIDNEY: Normal. No hydronephrosis. No renal calculi or focal parenchymal lesions. The kidney measures 9.2 cm in maximum dimension. LEFT KIDNEY: Malrotated. No hydronephrosis. No renal calculi or focal parenchymal lesions. The kidney measures 10.3 cm in maximum dimension. SPLEEN: Normal. The spleen measures 8.7 cm in maximum dimension. FREE FLUID: None. US/US abdomen complete IMPRESSION: Sonographic findings are compatible with hepatocellular disease. No focal liver lesions.
== END 2021-12-11 09:58 | disposition home or self-care (01) ==
LOC: HO.US 09:57
PROVIDERS: Visit Provider Internal Medicine Infectious Disease
DX: B19.10 Unspecified viral hepatitis B without hepatic coma (principal)
CPT/HCPCS: 76700

== ENCOUNTER 2022-01-03 09:30 | Outpatient (REF) | payer MEDICAID, SELFPAY ==
[2022-01-03 10:46] LABS: Alanine Aminotransferase 23 U/L (0-31); Albumin Level 4.1 g/dL (3.5-5.0); Alkaline Phosphatase 86 U/L (39-117); Anion Gap 10 (12-20); Aspartate Amino Transferase 21 U/L (5-31); Bilirubin Total 0.5 mg/dL (0.0-1.0); Blood Urea Nitrogen 17 mg/dL (9-16); Calcium 9.4 mg/dL (8.4-10.2); Carbon Dioxide 29 mmol/L (22-29); Chloride 107 mmol/L (96-108); Cholesterol 205 mg/dL; Estimated Glomerular Filt Rate > 60; Glucose Random 101 mg/dL (60-115); HDL Cholesterol 59 mg/dL; LDL Cholesterol Calculated 133 mg/dl; Potassium 4.8 mmol/L (3.3-5.1); Sodium 141 mmol/L (135-145); Total Protein 6.9 g/dL (6.5-8.0); Triglycerides 67 mg/dL
[2022-01-05 14:41] LABS: CRP High Sensitivity 0.4 mg/L
[2022-01-09 04:42] LABS: Lipoprotein A 70 nmol/L (<75)
== END 2022-01-03 09:31 | disposition home or self-care (01) ==
LOC: HO.LAB 09:30
PROVIDERS: PCP Family Medicine; Visit Provider Internal Medicine
DX: R07.89 Other chest pain (principal); I10 Essential (primary) hypertension
CPT/HCPCS: 36415; 80053; 80061; 83695; 86141

== ENCOUNTER 2022-03-06 08:15 | Outpatient (REF) | payer MEDICAID, SELFPAY ==
[2022-03-06 08:28] LABS: MANUAL DIFF FLAG NO
[2022-03-06 08:55] LABS: Basophils Percent Auto 0.8 % (0-2); Eosinophils Absolute Auto 0.2 X10*3/uL (0.0-0.4); Eosinophils Percent Auto 4.2 % (0-4); Hematocrit 37.7 % (37.0-47.0); Hemoglobin 12.3 g/dl (12.0-16.0); Imm Gran Abs Auto 0.01 X10*3/uL (0.00-0.03); Imm Gran Pct Auto 0.2 % (0.0-0.4); Lymphocytes Absolute Auto 1.9 X10*3/uL (1.2-4.9); Lymphocytes Percent Auto 39.7 % (20-40); Mean Corpuscular HGB Conc 32.6 g/dl (31.0-35.0); Mean Corpuscular Hemoglobin 30.7 pg (27.0-33.0); Mean Platelet Volume 10.2 fL (9.4-12.3); Monocytes Absolute Auto 0.3 X10*3/uL (0.1-1.2); Monocytes Percent Auto 7.2 % (2-11); Neutrophils Absolute Auto 2.3 x10*3/uL (2.0-8.3); Neutrophils Percent Auto 47.9 % (45-73); Platelet Count 250 X10*3/uL (160-400); Red Blood Count 4.01 X10*6/uL (4.20-5.50); Red Cell Distribution Width 13.2 % (11.0-16.0); White Blood Count 4.7 X10*3/uL (4.8-10.8)
[2022-03-06 09:01] LABS: INTERNATIONAL NORM RATIO 0.9 (0.9-1.1); Prothrombin Time 10.4 SEC (10.0-13.1)
[2022-03-06 09:22] LABS: Alanine Aminotransferase 26 U/L (0-31); Albumin Level 4.1 g/dL (3.5-5.0); Aspartate Amino Transferase 20 U/L (5-31); Bilirubin Total 0.5 mg/dL (0.0-1.0); Estimated Glomerular Filt Rate 58
[2022-03-06 10:19] LABS: HIV AB/AG Nonreactive (Nonreactive); HIV Num 1 0.08 S/CO (0.00-0.99); ~HepC Num1 0.12 S/CO (0.00-0.79); ~Hepatitis C Antibody Nonreactive (Nonreactive)
[2022-03-07 08:20] LABS: Syphilis Screen Nonreactive (Nonreactive)
[2022-03-08 12:18] LABS: Hepatitis B Viral DNA Qn-IU/mL 199 IU/mL (NOT DETECTED)
== END 2022-03-06 08:16 | disposition home or self-care (01) ==
LOC: HO.LAB 08:15
PROVIDERS: PCP Family Medicine; Visit Provider Internal Medicine Infectious Disease
DX: Z20.6 Contact with and (suspected) exposure to human immunodeficiency virus [HIV] (principal); B19.10 Unspecified viral hepatitis B without hepatic coma
CPT/HCPCS: 36415; 82040; 82247; 82565; 84450; 84460; 85025; 85610; 86780; 86803; 87389; 87517

== ENCOUNTER 2022-06-25 09:17 | Emergency (ER) | payer MEDICAID, SELFPAY ==
[2022-06-25 09:57] VITALS: BP 169/84; PULSE 87; RESP 16; TEMP 36.3; O2SAT 99; BMI 28.7
--- NOTE | 2022-06-25 10:30 | ED.GENADULT ---
HPI - General Adult General Chief complaint: General Medical Stated complaint: Sore throat/Lump behind ear Time Seen by Provider: 06/25/22 10:23 Source: patient Mode of arrival: ambulatory Limitations: no limitations History of Present Illness HPI narrative: patient comes in [facility] pharyngitis, sore throat and cervical lymphnodes. No flu shot has been vaccinated against covid Onset (ago): day(s) Severity: mild Pain Consistency: constant Associated symptoms: denies other symptoms Related Data Home Medications Medication Instructions Recorded Confirmed multivitamin 1 tab PO DAILY 06/15/20 11/09/21 albuterol sulfate 90 mcg/actuation 2 puff inhalation Q6H PRN 02/14/21 11/09/21 aerosol inhaler cetirizine 10 mg tablet 10 mg PO DAILY PRN 02/14/21 11/09/21 fluticasone propionate 110 1 puff inhalation BID 02/14/21 11/09/21 mcg/actuation HFA aerosol inhaler (Flovent HFA) pantoprazole 40 mg tablet,delayed 40 mg PO DAILY 02/14/21 11/09/21 release cholecalciferol (vitamin D3) 50 50 mcg PO DAILY 05/11/21 11/09/21 mcg (2,000 unit) tablet amlodipine 5 mg tablet 5 mg PO QAM 11/09/21 11/09/21 montelukast 10 mg tablet 10 mg PO QPM 11/09/21 11/09/21 multivitamin-ferrous 1 tab PO QAM 11/09/21 11/09/21 fumarate-folic acid 18 mg-400 mcg tablet (Certavite-Antioxidant) topiramate 50 mg tablet 50 mg PO 11/09/21 11/09/21 Previous Rx's Medication Instructions Recorded hydroxyzine HCl 25 mg tablet 25 mg PO TID PRN anxiety #20 tabs 12/02/20 levothyroxine 75 mcg tablet 75 mcg PO DAILY 90 days #90 tabs 02/14/21 bisacodyl 10 mg rectal suppository 10 mg ID DAILY PRN constipation 11/09/21 (Dulcolax (bisacodyl)) #20 ea docusate sodium 100 mg capsule 200 mg PO BEDTIME #60 caps 11/09/21 (Colace) hydrocortisone 2.5 % topical cream 1 appl ID BEDTIME PRN hemorrhoids 11/09/21 with perineal applicator #30 grams (Proctosol HC) methylcellulose (laxative) 500 mg 500 mg PO TID #90 tabs 11/09/21 tablet (Citrucel) polyethylene glycol 3350 17 17 g PO DAILY #510 grams 11/09/21 gram/dose oral powder (Miralax) famotidine 20 mg tablet 20 mg PO BEDTIME for indigestion 05/21/22 #30 tabs Allergies Allergy/AdvReac Type Severity Reaction Status Date / Time aspirin [ASPIRIN] Allergy Severe SWELLING Verified 11/09/21 14:16 ibuprofen [From Motrin] Allergy Mild SWELLING Verified 11/09/21 14:16 lactose Allergy Mild Diarrhea Uncoded 11/09/21 14:16 Review of Systems Review of Systems: Yes all other systems are reviewed and are negative ENT: Reports nasal congestion Comments: sore throat and laryngitis PMFSH Past Medical History Medical History Acid reflux Anemia Anxiety Asthma Depression History of back pain History of colon polyps History of palpitations HTN (hypertension) Hx of migraines Hypothyroidism Seasonal allergies Thyroid condition Tubular adenoma Surgical History History of colonoscopy History of esophagogastroduodenoscopy (EGD) History of nasal septoplasty History of tubal ligation Hx of bilateral breast reduction surgery Family History Family History Father Family history of high blood pressure Hx of type 1 diabetes mellitus Mother No problems noted. Social History Social History Household Members: None Alcohol intake: never Patient Tobacco Use Status: Never used Tobacco Advance Directives: No Advance Directives Information Provided: Yes Physical Exam ED Vital Signs: Vital Signs - 24 hr 06/25/22 09:57 Temperature 97.3 F Pulse Rate 87 Respiratory Rate 16 Blood Pressure 169/84 H Pulse Oximetry 99 Oxygen Delivery Method Room Air BMI result Body Mass Index 28.7 Const General: healthy appearing Nutritional Appearance: average body habitus Orientation/consciousness: oriented to person and patient oriented x3 Limitations: no limitations HENMT Other: supra auricular lymph node and left cervicle adenopathy. laryngitis. Ears: external ears normal General nose exam: Normal external nose present Mouth: Normal oral and palatal mucosa present and oropharynx normal Throat: Yes posterior oropharynx normal Eyes General: appearance normal, both eyes and all related structures Neck Neck: Yes normal visual inspection Chest Chest palpation & inspection: normal inspection of the chest Resp Auscultation: clear to auscultation bilaterally Cardio Jugular venous distension: no JVD Rate: regular rate Rhythm: regular rhythm Heart sounds: S1 normal heart sound present and S2 normal heart sound present GI Inspection: Yes normal to inspection Palpation (GI): Soft to palpation, nontender and No hepatosplenomegaly present Auscultation: normal bowel sounds General: Yes no CVA tenderness Back/Spine/Pelvis Back: no CVA tenderness Skin General skin exam: no rashes or lesions noted Neuro General: oriented to person and patient oriented x3 Cranial nerves: Yes CN's II-XII intact bilaterally Motor exam (neuro): 5/5 motor strength present throughout Extrem General: Yes normal to inspection Psych Appearance: grossly normal Course Reevaluation(s) Reevaluation #1: respiratory swab negative for COVID, Flu or RSV. Patient with laryngitis will dc home Time: 13:14 Medications Administered Discontinued Medications Generic Name Dose Route Start Last Admin Trade Name Freq PRN Reason Stop Dose Admin Acetaminophen 975 mg 06/25/22 10:40 06/25/22 11:11 Acetaminophen 325 Mg Tablet PO 06/25/22 10:41 975 mg ONCE ONE Administration Medical Decision Making Lab Data Labs: Lab Results 06/25/22 Range/Units 11:15 Influenza Type A (PCR) NEGATIVE (Negative) Influenza Type B (PCR) NEGATIVE (Negative) RSV RNA Qual (PCR) NEGATIVE (Negative) SARS-CoV-2 RNA (RT-PCR) NEGATIVE (Negative) Discharge Plan Discharge Clinical Impression: Upper respiratory infection, Laryngitis Patient Disposition: Home, Self-Care Instructions: Laryngitis (ED), Upper Respiratory Infection (ED) Additional Instructions: Warm salt water gargle 3 times a day Prescriptions: No Action famotidine 20 mg tablet 20 mg PO BEDTIME Qty: 30 1RF hydroxyzine HCl 25 mg tablet 25 mg PO TID PRN (Reason: anxiety) Qty: 20 0RF cetirizine 10 mg tablet 10 mg PO DAILY PRN pantoprazole 40 mg tablet,delayed release (DR/EC) 40 mg PO DAILY albuterol sulfate 90 mcg/actuation HFA aerosol inhaler 2 puff inhalation Q6H PRN Flovent HFA 110 mcg/actuation HFA aerosol inhaler 1 puff inhalation BID levothyroxine 75 mcg tablet 75 mcg PO DAILY 90 Days Qty: 90 3RF multivitamin Tablet 1 tab PO DAILY cholecalciferol (vitamin D3) 50 mcg (2,000 unit) tablet 50 mcg PO DAILY Certavite-Antioxidant 18-400 mg-mcg tablet 1 tab PO QAM topiramate 50 mg tablet 50 mg PO montelukast 10 mg tablet 10 mg PO QPM amlodipine 5 mg tablet 5 mg PO QAM Citrucel 500 mg tablet 500 mg PO TID Qty: 90 5RF docusate sodium [Colace] 100 mg capsule 200 mg PO BEDTIME Qty: 60 5RF bisacodyl [Dulcolax (bisacodyl)] 10 mg suppository 10 mg ID DAILY PRN (Reason: constipation) Qty: 20 0RF polyethylene glycol 3350 [Miralax] 17 gram/dose powder 17 g PO DAILY Qty: 510 6RF hydrocortisone [Proctosol HC] 2.5 % cream with perineal applicator 1 appl ID BEDTIME PRN (Reason: hemorrhoids) Qty: 30 3RF Referrals: Ashlee Meza MD [Primary Care Provider] - 1 week
[2022-06-25] MEDS: Acetaminophen 325 MG TABLET 975 MG PO (11:11)
[2022-06-25 12:00] LABS: Influenza A PCR NEGATIVE (Negative); Influenza B PCR NEGATIVE (Negative); Resp Syncy Virus RNA Qual PCR NEGATIVE (Negative); SARS COV2 PCR INHOUSE NEGATIVE (Negative)
== END 2022-06-25 13:37 | disposition home or self-care (01) ==
PROVIDERS: Emergency Provider Emergency Medicine; PCP Family Medicine
DX: J06.9 Acute upper respiratory infection, unspecified (principal); J04.0 Acute laryngitis; Z20.822 Contact with and (suspected) exposure to COVID-19
CPT/HCPCS: 0241U; 99283; 99284

== ENCOUNTER 2022-10-03 06:36 | Outpatient (REF) | payer MEDICAID, SELFPAY ==
[2022-10-03 06:50] LABS: MANUAL DIFF FLAG NO
[2022-10-03 07:10] LABS: Basophils Percent Auto 0.6 % (0-2); Eosinophils Absolute Auto 0.2 X10*3/uL (0.0-0.4); Eosinophils Percent Auto 3.4 % (0-4); Hematocrit 38.2 % (37.0-47.0); Hemoglobin 12.8 g/dl (12.0-16.0); Imm Gran Abs Auto 0.02 X10*3/uL (0.00-0.03); Imm Gran Pct Auto 0.4 % (0.0-0.4); Lymphocytes Absolute Auto 1.8 X10*3/uL (1.2-4.9); Lymphocytes Percent Auto 38.8 % (20-40); Mean Corpuscular HGB Conc 33.5 g/dl (31.0-35.0); Mean Corpuscular Hemoglobin 30.3 pg (27.0-33.0); Mean Corpuscular Volume 90.5 fL (80.0-98.0); Mean Platelet Volume 10.4 fL (9.4-12.3); Monocytes Absolute Auto 0.3 X10*3/uL (0.1-1.2); Neutrophils Absolute Auto 2.4 x10*3/uL (2.0-8.3); Neutrophils Percent Auto 50.8 % (45-73); Platelet Count 249 X10*3/uL (160-400); Red Blood Count 4.22 X10*6/uL (4.20-5.50); Red Cell Distribution Width 12.5 % (11.0-16.0); White Blood Count 4.7 X10*3/uL (4.8-10.8)
[2022-10-03 07:35] LABS: Alanine Aminotransferase 24 U/L (0-31); Albumin Level 4.1 g/dL (3.5-5.0); Aspartate Amino Transferase 22 U/L (5-31); Bilirubin Total 0.3 mg/dL (0.0-1.0); Estimated Glomerular Filt Rate > 60; Glucose Random 113 mg/dL (60-115)
[2022-10-03 07:53] LABS: HIV AB/AG Nonreactive (Nonreactive); HIV Num 1 0.07 S/CO (0.00-0.99); ~Hepatitis B Surface Antibody NONREACTIVE (Nonreactive); ~Hepatitis C Antibody Nonreactive (Nonreactive)
[2022-10-03 15:28] LABS: HBsAGNum2 Reactive; HBsAGNum3 Reactive
[2022-10-03 15:33] LABS: Hepatitis B Surface Antigen Retest CNFM (Negative)
[2022-10-03 15:37] LABS: Neutralization % 9
[2022-10-05 11:26] LABS: Neutral % 500 100
[2022-10-05 19:44] LABS: Hepatitis B Viral DNA Qn - cp 2.83 Log IU/mL (NOT DETECTED); Hepatitis B Viral DNA Qn-IU/mL 683 IU/mL (NOT DETECTED)
[2022-10-08 20:54] LABS: Hepatitis B Core Antibody IgM NON-REACTIVE (NON-REACTIVE)
[2022-10-10 20:40] LABS: Hepatitis Delta Antibody NEGATIVE
== END 2022-10-03 06:37 | disposition home or self-care (01) ==
LOC: HO.LAB 06:36
PROVIDERS: PCP Family Medicine; Visit Provider Internal Medicine Infectious Disease
DX: Z11.4 Encounter for screening for human immunodeficiency virus [HIV] (principal); B19.10 Unspecified viral hepatitis B without hepatic coma
CPT/HCPCS: 36415; 82040; 82247; 82565; 82947; 84450; 84460; 85025; 86692; 86705; 86706; 86803; 87340; 87389; 87517

== ENCOUNTER 2022-11-03 08:19 | Outpatient (REF) | payer MEDICAID, SELFPAY ==
[2022-11-03 09:45] LABS: TSH reflex Free T4 1.16 uIU/mL (0.32-4.0)
== END 2022-11-03 08:20 | disposition home or self-care (01) ==
LOC: HO.LAB 08:19
PROVIDERS: PCP Family Medicine; Visit Provider Family Medicine
DX: E03.9 Hypothyroidism, unspecified (principal)
CPT/HCPCS: 36415; 84443

== ENCOUNTER 2022-12-25 09:38 | Outpatient (REF) | payer MEDICAID, SELFPAY ==
[2022-12-25 10:06] LABS: MANUAL DIFF FLAG NO
[2022-12-25 10:52] LABS: Basophils Percent Auto 0.9 % (0-2); Eosinophils Absolute Auto 0.2 X10*3/uL (0.0-0.4); Eosinophils Percent Auto 4.1 % (0-4); Hematocrit 36.9 % (37.0-47.0); Hemoglobin 12.1 g/dl (12.0-16.0); Imm Gran Abs Auto 0.01 X10*3/uL (0.00-0.03); Imm Gran Pct Auto 0.2 % (0.0-0.4); Lymphocytes Absolute Auto 1.9 X10*3/uL (1.2-4.9); Lymphocytes Percent Auto 43.3 % (20-40); Mean Corpuscular HGB Conc 32.8 g/dl (31.0-35.0); Mean Corpuscular Hemoglobin 30.6 pg (27.0-33.0); Mean Corpuscular Volume 93.2 fL (80.0-98.0); Mean Platelet Volume 11.2 fL (9.4-12.3); Monocytes Absolute Auto 0.3 X10*3/uL (0.1-1.2); Monocytes Percent Auto 6.6 % (2-11); Neutrophils Percent Auto 44.9 % (45-73); Platelet Count 257 X10*3/uL (160-400); Red Blood Count 3.96 X10*6/uL (4.20-5.50); Red Cell Distribution Width 13.1 % (11.0-16.0); White Blood Count 4.4 X10*3/uL (4.8-10.8)
[2022-12-25 12:30] LABS: Alanine Aminotransferase 22 U/L (0-31); Albumin Level 4.1 g/dL (3.5-5.0); Alkaline Phosphatase 84 U/L (39-117); Anion Gap 15 (12-20); Aspartate Amino Transferase 22 U/L (5-31); Bilirubin Total 0.9 mg/dL (0.0-1.0); Blood Urea Nitrogen 14 mg/dL (9-16); Calcium 9.6 mg/dL (8.4-10.2); Carbon Dioxide 22 mmol/L (22-29); Chloride 106 mmol/L (96-108); Cholesterol 200 mg/dL; Creatinine Urine 32.94 mg/dL; Estimated Glomerular Filt Rate > 60; Glucose Random 91 mg/dL (60-115); HDL Cholesterol 57 mg/dL; LDL Cholesterol Calculated 128 mg/dl; Microalbumin Urine < 5.0 mg/L; Potassium 4.1 mmol/L (3.3-5.1); Sodium 139 mmol/L (135-145); Total Protein 7.1 g/dL (6.5-8.0); Triglycerides 77 mg/dL
[2022-12-25 12:31] LABS: TSH reflex Free T4 3.19 uIU/mL (0.32-4.0)
== END 2022-12-25 09:39 | disposition home or self-care (01) ==
LOC: HO.LAB 09:38
PROVIDERS: PCP Family Medicine; Visit Provider Internal Medicine
DX: E03.9 Hypothyroidism, unspecified (principal); I10 Essential (primary) hypertension; E66.3 Overweight
CPT/HCPCS: 36415; 80053; 80061; 82043; 84443; 85025

== ENCOUNTER 2023-01-18 10:32 | Outpatient (REF) | payer MEDICAID, SELFPAY ==
--- NOTE | ~2023-01-18 | MM_ITS ---
EXAMINATION: MM SCREENING DIGITAL BREAST TOMOSYNTHESIS, BILATERAL CLINICAL INFORMATION: Screening. Asymptomatic. History reduction mammoplasty, 2014. The lifetime risk of breast cancer based on the Tyrer-Cuzick Model is 4%. COMPARISON: Mammography: 05/07/2020, 08/01/2018, 07/01/2017 TECHNIQUE: Digital breast tomosynthesis is performed in both the craniocaudal and mediolateral oblique views along with computer-aided detection (CAD). Synthesized 2D images are generated from the tomosynthesis. FINDINGS: The breasts are almost entirely fatty (ACR BI-RADS breast composition Category a). Background stromal markings and fibroglandular densities are similar to prior studies and there is no developing density or interval architectural abnormality. There are no significant masses, abnormal calcifications, or other abnormalities. The axilla and skin contours are unremarkable. MM/MM tomosynthesis screening BI IMPRESSION: No mammographic evidence of malignancy. ASSESSMENT: BI-RADS 1: Negative RECOMMENDATION: Routine annual mammography screening. This patient's information was entered into a reminder system with a target due date for their next mammogram.
== END 2023-01-18 10:33 | disposition home or self-care (01) ==
LOC: HO.MAMMO 10:32
PROVIDERS: PCP Family Medicine; Visit Provider Family Medicine
DX: Z12.31 Encounter for screening mammogram for malignant neoplasm of breast (principal)
CPT/HCPCS: 77063; 77067

== ENCOUNTER 2023-01-21 07:39 | Outpatient (REF) | payer MEDICAID, SELFPAY ==
--- NOTE | ~2023-01-21 | US_ITS ---
EXAMINATION: US ABDOMEN COMPLETE CLINICAL INFORMATION: HCC screen. COMPARISON: Ultrasound abdomen complete 12/11/2021 and 01/22/2020. TECHNIQUE: Real-time imaging of the abdominal viscera. FINDINGS: PANCREAS: Limited. The visualized pancreatic head and body are normal in appearance. The remainder of the pancreas is obscured from visualization by the overlying bowel gas. ABDOMINAL AORTA: The proximal, mid, and distal segments are normal in caliber. INFERIOR VENA CAVA: Visualized portions are normal. LIVER: The liver is normal in size. The liver contour is normal. There is diffuse increased liver parenchymal echogenicity. No focal hepatic lesion. There is no intrahepatic biliary duct dilatation seen. GALLBLADDER: Normal. The gallbladder is physiologically distended without evidence of stones, sludge, polyps, wall thickening or pericholecystic fluid. COMMON BILE DUCT: Normal in caliber measuring 0.2 cm in diameter. RIGHT KIDNEY: There is mild pelviectasis, without annie hydronephrosis. No renal calculi or focal parenchymal lesions. The kidney measures 9.9 cm in maximum dimension. LEFT KIDNEY: There is mild malrotation. No hydronephrosis. No renal calculi or focal parenchymal lesions. The kidney measures 9.4 cm in maximum dimension. SPLEEN: Normal. The spleen measures 10.9 cm in maximum dimension. FREE FLUID: None. US/US abdomen complete IMPRESSION: There is generalized increase in hepatic echotexture, consistent with fatty infiltration or hepatocellular disease. Please correlate clinically. No focal hepatic mass or intrahepatic biliary dilatation is seen.
== END 2023-01-21 07:40 | disposition home or self-care (01) ==
LOC: HO.US 07:39
PROVIDERS: Visit Provider Internal Medicine Infectious Disease
DX: B19.10 Unspecified viral hepatitis B without hepatic coma (principal)
CPT/HCPCS: 76700

== ENCOUNTER 2023-02-07 10:16 | Outpatient (REF) | payer MEDICAID, SELFPAY ==
[2023-02-07 12:29] LABS: TSH reflex Free T4 7.33 uIU/mL (0.32-4.0)
[2023-02-07 13:58] LABS: Free T4 (Free Thyroxine) 0.88 ng/dL (0.71-1.85)
== END 2023-02-07 10:17 | disposition home or self-care (01) ==
LOC: HO.LAB 10:16
PROVIDERS: PCP Family Medicine; Visit Provider Family Medicine
DX: I10 Essential (primary) hypertension (principal)
CPT/HCPCS: 36415; 84439; 84443

== ENCOUNTER 2023-03-01 15:25 | Outpatient (REF) | payer MEDICAID, SELFPAY ==
[2023-03-01 19:00] LABS: Iron 82 mcg/dL (30-160); Percent Iron Saturation 25 % (15-50); Total Iron Binding Capacity 323 mcg/dL (228-428); Unsaturated Iron Binding 241 ug/dL
[2023-03-01 19:14] LABS: Ferritin 52 ng/mL (10-250); TSH reflex Free T4 0.11 uIU/mL (0.32-4.0)
[2023-03-01 21:34] LABS: Free T4 (Free Thyroxine) 1.33 ng/dL (0.71-1.85)
[2023-03-07 11:58] LABS: VITAMIN D (1,25 OH) D3 37 pg/mL; Vit D (1,25-Dihydroxy) Total 37 pg/mL (18-72); Vitamin D (1,25 OH) D2 <8 pg/mL
== END 2023-03-01 15:26 | disposition home or self-care (01) ==
LOC: HO.CHCLDS 15:25
PROVIDERS: Visit Provider Family Medicine
DX: L65.9 Nonscarring hair loss, unspecified (principal); E03.9 Hypothyroidism, unspecified
CPT/HCPCS: 36415; 82652; 82728; 83540; 84439; 84443

== ENCOUNTER 2023-03-11 13:52 | Outpatient (REF) | payer OTHER, SELFPAY ==
[2023-03-12 02:30] LABS: TSH reflex Free T4 0.06 uIU/mL (0.32-4.0)
[2023-03-12 03:00] LABS: Free T4 (Free Thyroxine) 1.27 ng/dL (0.71-1.85)
== END 2023-03-11 13:53 | disposition home or self-care (01) ==
LOC: HO.CHCLDS 13:52
PROVIDERS: Visit Provider Family Medicine
DX: E03.9 Hypothyroidism, unspecified (principal)
CPT/HCPCS: 36415; 84439; 84443

== ENCOUNTER 2023-03-28 08:44 | Outpatient (REF) | payer OTHER, MEDICAID, SELFPAY ==
--- NOTE | ~2023-03-28 | XR_ITS ---
EXAMINATION: CERVICAL SPINE 3 VIEWS CLINICAL INFORMATION: Pain. COMPARISON: None. TECHNIQUE: Frontal, odontoid, bilateral oblique and lateral views are obtained. FINDINGS: Vertebral body heights are normal. At C3-C4 through C5-C6, there is mild disc space narrowing. At C6-C7, is moderate disc space narrowing. The remaining disc spaces are well-maintained. No acute fracture or spondylolisthesis is seen. There is multi-level mild cervical spondylosis. The posterior elements are intact. There is mild bilateral neural foraminal narrowing at C3-C4 through C5-C6. There is no prevertebral soft tissue swelling. The dens and C7-T1 interface are normal. XR/XR lumbar spine 2-3V IMPRESSION: 1. There is multi-level cervical degenerative disc disease, spondylosis and facet arthropathy. Degenerative disc disease is most pronounced at C6-C7, where it is moderate. 2. There is mild bilateral neural foraminal narrowing extending from C3-C4 through C5-C6. EXAMINATION: XR LUMBOSACRAL SPINE CLINICAL INFORMATION: Lower back pain. COMPARISON: None TECHNIQUE: AP and lateral views of the lumbar spine and lateral view of the lumbosacral junction. FINDINGS: Vertebral body heights and alignment are normal. At L5-S1, there is a 3 mm retrolisthesis. The remaining disc spaces are well-maintained. No acute fracture or spondylolisthesis is seen. The posterior elements are intact. The paravertebral soft tissues are unremarkable. IMPRESSION: There is mild degenerative disc disease at L5-S1.
--- NOTE | ~2023-03-28 | XR_ITS ---
EXAMINATION: CERVICAL SPINE 3 VIEWS CLINICAL INFORMATION: Pain. COMPARISON: None. TECHNIQUE: Frontal, odontoid, bilateral oblique and lateral views are obtained. FINDINGS: Vertebral body heights are normal. At C3-C4 through C5-C6, there is mild disc space narrowing. At C6-C7, is moderate disc space narrowing. The remaining disc spaces are well-maintained. No acute fracture or spondylolisthesis is seen. There is multi-level mild cervical spondylosis. The posterior elements are intact. There is mild bilateral neural foraminal narrowing at C3-C4 through C5-C6. There is no prevertebral soft tissue swelling. The dens and C7-T1 interface are normal. XR/XR cervical spine 5V IMPRESSION: 1. There is multi-level cervical degenerative disc disease, spondylosis and facet arthropathy. Degenerative disc disease is most pronounced at C6-C7, where it is moderate. 2. There is mild bilateral neural foraminal narrowing extending from C3-C4 through C5-C6. EXAMINATION: XR LUMBOSACRAL SPINE CLINICAL INFORMATION: Lower back pain. COMPARISON: None TECHNIQUE: AP and lateral views of the lumbar spine and lateral view of the lumbosacral junction. FINDINGS: Vertebral body heights and alignment are normal. At L5-S1, there is a 3 mm retrolisthesis. The remaining disc spaces are well-maintained. No acute fracture or spondylolisthesis is seen. The posterior elements are intact. The paravertebral soft tissues are unremarkable. IMPRESSION: There is mild degenerative disc disease at L5-S1.
== END 2023-03-28 08:45 | disposition home or self-care (01) ==
LOC: HO.XRAY 08:44
PROVIDERS: PCP Family Medicine; Visit Provider Internal Medicine
DX: M54.50 Low back pain, unspecified (principal); M54.2 Cervicalgia
CPT/HCPCS: 72050; 72100

== ENCOUNTER 2023-04-30 08:20 | Outpatient (REF) | payer OTHER, MEDICAID, SELFPAY ==
[2023-04-30 09:08] LABS: MANUAL DIFF FLAG NO
[2023-04-30 09:24] LABS: Basophils Percent Auto 0.5 % (0-2); Eosinophils Absolute Auto 0.2 X10*3/uL (0.0-0.4); Eosinophils Percent Auto 3.7 % (0-4); Hematocrit 39.2 % (37.0-47.0); Hemoglobin 13.1 g/dl (12.0-16.0); Imm Gran Abs Auto 0.01 X10*3/uL (0.00-0.03); Imm Gran Pct Auto 0.2 % (0.0-0.4); Lymphocytes Absolute Auto 1.8 X10*3/uL (1.2-4.9); Lymphocytes Percent Auto 42.6 % (20-40); Mean Corpuscular HGB Conc 33.4 g/dl (31.0-35.0); Mean Corpuscular Volume 92.9 fL (80.0-98.0); Mean Platelet Volume 10.3 fL (9.4-12.3); Monocytes Absolute Auto 0.3 X10*3/uL (0.1-1.2); Monocytes Percent Auto 6.6 % (2-11); Neutrophils Percent Auto 46.4 % (45-73); Platelet Count 236 X10*3/uL (160-400); Red Blood Count 4.22 X10*6/uL (4.20-5.50); Red Cell Distribution Width 12.2 % (11.0-16.0); White Blood Count 4.3 X10*3/uL (4.8-10.8)
[2023-04-30 09:36] LABS: Alanine Aminotransferase 20 U/L (0-31); Aspartate Amino Transferase 19 U/L (5-31); Estimated Glomerular Filt Rate > 60
[2023-04-30 09:56] LABS: HBS Num1 0.02 mIU/mL (0-7.99); Syphilis Screen Nonreactive (Nonreactive); ~HepC Num1 0.12 S/CO (0.00-0.79); ~Hepatitis B Surface Antibody NONREACTIVE (Nonreactive); ~Hepatitis C Antibody Nonreactive (Nonreactive)
[2023-04-30 11:46] LABS: HBsAGNum2 Reactive; HBsAGNum3 Reactive; Hepatitis B Surface Antigen Retest CNFM (Negative)
[2023-04-30 14:05] LABS: CT PCR NOT DETECTED (Not Detect.); NG PCR NOT DETECTED (Not Detect.)
[2023-05-02 17:54] LABS: Hepatitis B Viral DNA Qn - cp <1.00 DETECTED Log IU/mL (NOT DETECTED); Hepatitis B Viral DNA Qn-IU/mL <10 DETECTED IU/mL (NOT DETECTED)
[2023-05-07 14:19] LABS: FIB-ALT 20 U/L (6-29); FIB-Alpha-2-Macroglobulin 190 mg/dL (106-279); FIB-Apolipoprotein A1 162 mg/dL (101-198); FIB-GGT 10 U/L (3-70); FIB-Haptoglobin 141 mg/dL (43-212); FIB-Total Bilirubin 0.4 mg/dL (0.2-1.2); Liver Fibrosis Score 0.08; Liver Fibrosis Stage F0; Nec Inflam Act Grade A0; Nec Inflam Act Score 0.06
[2023-05-08 19:03] LABS: Hepatitis Delta Antibody NEGATIVE
== END 2023-04-30 08:21 | disposition home or self-care (01) ==
LOC: HO.LAB 08:20
PROVIDERS: PCP Family Medicine; Referring Provider Family Medicine; Visit Provider Internal Medicine Infectious Disease
DX: B18.1 Chronic viral hepatitis B without delta-agent (principal)
CPT/HCPCS: 0353U; 36415; 81596; 82565; 84450; 84460; 85025; 86692; 86706; 86780; 86803; 87340; 87517

== ENCOUNTER 2023-05-10 10:00 | Outpatient (RCR) | payer OTHER, MEDICAID, SELFPAY | END 2023-06-17 09:28 | disposition home or self-care (01) | LOC: HO.PTCHIC 10:00 | PROVIDERS: PCP Family Medicine; Visit Provider Internal Medicine | DX: M54.2 Cervicalgia (principal); M54.50 Low back pain, unspecified; M79.605 Pain in left leg | CPT/HCPCS: 97014; 97110; 97140; 97162 ==

== ENCOUNTER 2023-05-25 08:15 | Outpatient (REF) | payer OTHER, MEDICAID, SELFPAY ==
[2023-05-25 08:45] LABS: Appearance Urine Clear; Color Urine Yellow; Glucose Urine UA Negative (Negative); Leukocyte Esterase Urine Trace (Negative); Nitrite Urine Negative (Negative); PH 5.5 (5.0-9.0); UMIC TRIGGER UACC YES; Urine Blood Negative (Negative); Urine Ketones Trace mg/dL (Negative); Urine Protein Negative (Neg-Trace)
[2023-05-25 08:49] LABS: Bacteria Urine None Seen (None Seen); Hyaline Casts Urine 0-2 /LPF (0-2); RBC Urine 0-2 /HPF (0-2); Squamous Epithelial Cell Urine 0-2 /HPF (0-2); WBC Urine 0-5 /HPF (0-5)
[2023-05-25 09:29] LABS: Anion Gap 13 (12-20); Blood Urea Nitrogen 11 mg/dL (9-16); Calcium 10.1 mg/dL (8.4-10.2); Carbon Dioxide 26 mmol/L (22-29); Chloride 107 mmol/L (96-108); Estimated Glomerular Filt Rate > 60; Glucose Random 111 mg/dL (60-115); Potassium 4.6 mmol/L (3.3-5.1); Sodium 141 mmol/L (135-145)
[2023-05-25 09:46] LABS: TSH reflex Free T4 0.33 uIU/mL (0.32-4.0)
== END 2023-05-25 08:16 | disposition home or self-care (01) ==
LOC: HO.LAB 08:15
PROVIDERS: Visit Provider Family Medicine
DX: E03.9 Hypothyroidism, unspecified (principal); R35.89 Other polyuria
CPT/HCPCS: 36415; 80048; 81001; 84443; 87086

== ENCOUNTER 2023-06-27 09:54 | Outpatient (REF) | payer OTHER, MEDICAID, SELFPAY ==
[2023-06-27 12:39] LABS: TSH reflex Free T4 0.35 uIU/mL (0.32-4.0)
== END 2023-06-27 09:55 | disposition home or self-care (01) ==
LOC: HO.HHCL 09:54
PROVIDERS: Visit Provider Family Medicine
DX: E03.9 Hypothyroidism, unspecified (principal)
CPT/HCPCS: 36415; 84443

== ENCOUNTER 2023-08-28 07:42 | Outpatient (REF) | payer OTHER, MEDICAID, SELFPAY ==
[2023-08-28 08:25] LABS: MANUAL DIFF FLAG NO
[2023-08-28 08:41] LABS: Basophils Percent Auto 0.5 % (0-2); Eosinophils Absolute Auto 0.1 X10*3/uL (0.0-0.4); Eosinophils Percent Auto 3.2 % (0-4); Hematocrit 39.4 % (37.0-47.0); Hemoglobin 12.9 g/dl (12.0-16.0); Imm Gran Abs Auto 0.01 X10*3/uL (0.00-0.03); Imm Gran Pct Auto 0.2 % (0.0-0.4); Lymphocytes Absolute Auto 1.5 X10*3/uL (1.2-4.9); Lymphocytes Percent Auto 34.1 % (20-40); Mean Corpuscular HGB Conc 32.7 g/dl (31.0-35.0); Mean Corpuscular Hemoglobin 30.4 pg (27.0-33.0); Mean Corpuscular Volume 92.7 fL (80.0-98.0); Mean Platelet Volume 10.3 fL (9.4-12.3); Monocytes Absolute Auto 0.3 X10*3/uL (0.1-1.2); Monocytes Percent Auto 5.9 % (2-11); Neutrophils Absolute Auto 2.5 x10*3/uL (2.0-8.3); Neutrophils Percent Auto 56.1 % (45-73); Platelet Count 237 X10*3/uL (160-400); Red Blood Count 4.25 X10*6/uL (4.20-5.50); Red Cell Distribution Width 12.8 % (11.0-16.0); White Blood Count 4.4 X10*3/uL (4.8-10.8)
[2023-08-28 09:06] LABS: Anion Gap 10 (12-20); Blood Urea Nitrogen 19 mg/dL (9-16); Calcium 9.6 mg/dL (8.4-10.2); Carbon Dioxide 26 mmol/L (22-29); Chloride 108 mmol/L (96-108); Estimated Glomerular Filt Rate > 60; Glucose Random 104 mg/dL (60-115); Sodium 140 mmol/L (135-145)
[2023-08-28 09:25] LABS: Syphilis Screen Nonreactive (Nonreactive); ~Hepatitis C Antibody Nonreactive (Nonreactive)
[2023-08-28 11:20] LABS: CT PCR NOT DETECTED (Not Detect.); NG PCR NOT DETECTED (Not Detect.)
[2023-08-30 14:15] LABS: Hepatitis B Viral DNA Qn - cp 1.67 Log IU/mL (NOT DETECTED); Hepatitis B Viral DNA Qn-IU/mL 47 IU/mL (NOT DETECTED)
[2023-08-30 21:58] LABS: Hepatitis BE Antibody REACTIVE (NON-REACTIVE); Hepatitis BE Antigen NON-REACTIVE (NON-REACTIVE)
[2023-09-04 16:38] LABS: FIB-ALT 18 U/L (6-29); FIB-Alpha-2-Macroglobulin 179 mg/dL (106-279); FIB-Apolipoprotein A1 179 mg/dL (101-198); FIB-GGT 11 U/L (3-70); FIB-Haptoglobin 140 mg/dL (43-212); FIB-Total Bilirubin 0.5 mg/dL (0.2-1.2); Liver Fibrosis Score 0.07; Liver Fibrosis Stage F0; Nec Inflam Act Grade A0; Nec Inflam Act Score 0.05
[2023-09-07 19:58] LABS: Hepatitis Delta Antibody NEGATIVE
== END 2023-08-28 07:43 | disposition home or self-care (01) ==
LOC: HO.LAB 07:42
PROVIDERS: PCP Family Medicine; Visit Provider Internal Medicine Infectious Disease
DX: B18.1 Chronic viral hepatitis B without delta-agent (principal)
CPT/HCPCS: 0353U; 80048; 81596; 85025; 86692; 86707; 86780; 86803; 87350; 87517

== ENCOUNTER 2023-09-18 08:20 | Outpatient (REF) | payer OTHER, SELFPAY ==
--- NOTE | ~2023-09-18 | US_ITS ---
EXAMINATION: US ABDOMEN COMPLETE CLINICAL INFORMATION: Chronic viral hepatitis B. COMPARISON: Ultrasound abdomen complete 01/21/2023 and 12/11/2021. TECHNIQUE: Real-time imaging of the abdominal viscera. FINDINGS: PANCREAS: Normal. ABDOMINAL AORTA: The proximal, mid, and distal segments are normal in caliber. INFERIOR VENA CAVA: Visualized portions are normal. LIVER: Normal. The liver is normal in size. The liver contour is normal. Parenchymal echogenicity is normal. No focal hepatic lesion. There is no intrahepatic biliary duct dilatation seen. GALLBLADDER: Small echogenic foci along the anterior wall of the gallbladder with dirty shadowing is suspicious for small areas of adenomyomatosis. The gallbladder is physiologically distended without evidence of stones, sludge, polyps, wall thickening or pericholecystic fluid. COMMON BILE DUCT: Normal in caliber measuring 0.4 cm in diameter. RIGHT KIDNEY: Normal. No hydronephrosis. No renal calculi or focal parenchymal lesions. The kidney measures 10.1 cm in maximum dimension. LEFT KIDNEY: Normal. No hydronephrosis. No renal calculi or focal parenchymal lesions. The kidney measures 9.4 cm in maximum dimension. SPLEEN: Normal. The spleen measures 8.4 cm in maximum dimension. FREE FLUID: None. US/US abdomen complete IMPRESSION: No gallstones or biliary dilatation. Tiny areas of adenomyomatosis of the gallbladder. This is more conspicuous today than on 01/21/2023.
== END 2023-09-18 08:21 | disposition home or self-care (01) ==
LOC: HO.US 08:20
PROVIDERS: PCP Family Medicine; Visit Provider Internal Medicine Infectious Disease
DX: B18.1 Chronic viral hepatitis B without delta-agent (principal)
CPT/HCPCS: 76700

== ENCOUNTER 2023-09-26 13:42 | Outpatient (AMB) | payer OTHER, SELFPAY ==
--- NOTE | 2023-09-26 14:01 | MHC.OFFVIS ---
Intake Vital Signs 09/26/23 14:09 Height 5 ft Weight 149 lb BMI 29.1 BP 152/80 H Blood Pressure Location Lt brachial Position Sitting Pulse 88 Intake Visit Reasons: Adenomyomatosis of gallbladder Intake Note: Patient is seen in office for evaluation and treatment of adenomyomatosis of gallbladder. 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 Required: No Accompanied by: Daughter Allergies aspirin [ASPIRIN] Allergy (Severe, Verified 09/26/23 14:03) SWELLING ibuprofen [From Motrin] Allergy (Mild, Verified 09/26/23 14:03) SWELLING lactose Allergy (Mild, Uncoded 09/26/23 14:03) Diarrhea Medication List - Last Reconciled 09/26/23 by Desmond Forbes MD albuterol sulfate 90 mcg/actuation 2 puffs inhalation Q6H PRN amlodipine 5 mg PO QAM cetirizine 10 mg PO DAILY PRN famotidine 20 mg PO BEDTIME fluticasone propionate 110 mcg/actuation (Flovent HFA) 1 puff inhalation BID hydroxyzine HCl 25 mg PO TID PRN levothyroxine 75 mcg PO DAILY 90 days montelukast 10 mg PO QPM topiramate 50 mg PO HPI HPI Comments History of Present Illness Details 52-year-old female patient presenting for evaluation of a recent ultrasound which revealed adenomyosis within the gallbladder wall. This was previously noted and felt to be more conspicuous at this time. She has complaints of abdominal pain in the right upper quadrant radiating to the back. The pain seems to increase with eating especially with fatty foods. She denies nausea, vomiting, fever or chills. She also denies diarrhea or constipation. She does have urinary frequency but denies any bile area. She was diagnosed with hepatitis B and is being followed by Gastroenterology. [facility] Medical History Hepatitis B Hypothyroidism History of back pain Anemia Hx of migraines Anxiety Depression Seasonal allergies Asthma History of palpitations HTN (hypertension) History of colon polyps Thyroid condition Tubular adenoma Acid reflux Surgical History History of esophagogastroduodenoscopy (EGD) History of tubal ligation History of nasal septoplasty Hx of bilateral breast reduction surgery History of colonoscopy Family History Father Family history of high blood pressure Hx of type 1 diabetes mellitus Mother No problems noted. Social History Household Members: None Alcohol intake: never Patient Tobacco Use Status: Never used Tobacco Review of Systems Const All systems reviewed & are unremarkable except as noted in HPI and below Denies chills, Denies fever(s), Denies headache(s), Denies poor appetite and Denies weakness ENT Denies headache(s) Card Denies chest pain, Denies irregular heart rhythm, Denies palpitations and Denies dyspnea Resp Denies cough, Denies excessive phlegm production and Denies dyspnea GI Reports abdominal pain, Reports bloating, Denies change in bowel habits, Denies constipation, Denies heartburn, Denies diarrhea, Denies nausea and Denies vomiting Denies urinary frequency Musc Denies back pain, Denies muscle weakness and Denies numbness Skin/Breast Denies changing lesions and Denies unusual bruising Neuro Denies headache(s), Denies numbness, Denies paresthesias and Denies weakness Psych Denies anxiety and Denies depression Endo Denies palpitations Kwasi/Lymph Denies lymphadenopathy Physical Exam Vital Signs: Last Vital Signs Pulse 88 09/26/23 14:09 BP 152/80 H 09/26/23 14:09 BMI result Body Mass Index 29.1 Const General: cooperative and no acute distress Nutritional Appearance: well nourished Orientation/consciousness: patient oriented x3 Limitations: no limitations HEENT Head: Yes normocephalic and Yes atraumatic Ears: hearing grossly normal bilaterally Resp Effort & Inspection: normal respiratory effort, no audible wheezes, no cough and no respiratory distress Cardio Jugular venous distension: no JVD GI Inspection: Yes normal to inspection Palpation (GI): Soft to palpation, Tenderness to palpation present (GI) in the RUQ; Holt's sign negative, no guarding and not rigid Skin Other: Warm, dry, no rash General skin exam: no rashes or lesions noted Neuro General: patient oriented x3 Extrem General: Yes no clubbing, cyanosis or edema Assessment & Plan Assessment & Plan (1) Biliary colic: Code(s): K80.50 - Calculus of bile duct without cholangitis or cholecystitis without obstruction Plan 52-year-old female patient with a prior history of hepatitis-B now presenting with complaints of abdominal pain in the right upper quadrant radiating into the right back. Pain is associated with fatty food intake and began approximately 1 month prior to examination. A recent ultrasound reveals adenomyosis of a single area in the wall of the gallbladder. No other stones or sludge is identified. The gallbladder is physiologically distended. Symptoms do sound similar to biliary colic however no definite gallstones are identified. Recommended further evaluation with a HIDA scan for evidence of biliary dyskinesia. She will return following the study to review the results and discuss treatment options. Orders: Orders NM hepatobiliary w pharm Today K80.50 - Calculus of bile duct without cholangitis or cholecystitis without obstruction Coding Level of Care Code New Pt Level 4 (54889) Diagnoses Biliary colic K80.50
[2023-09-26 14:09] VITALS: BP 152/80; PULSE 88; BMI 29.1
== END 2023-09-26 14:23 | disposition home or self-care (01) ==
PROVIDERS: PCP Family Medicine; Visit Provider Surgery
DX: K80.50 Calculus of bile duct without cholangitis or cholecystitis without obstruction (principal)
CPT/HCPCS: 99204

== ENCOUNTER → 2023-09-26 13:42 | Outpatient (BNVA) | payer OTHER, SELFPAY | PROVIDERS: PCP Family Medicine; Visit Provider Surgery ==

== ENCOUNTER → 2023-10-11 10:32 | Outpatient (REF) | payer OTHER, SELFPAY ==
--- NOTE | ~2023-10-11 | NM_ITS ---
EXAMINATION: BILIARY TRACT IMAGING STUDY WITH CCK CLINICAL INFORMATION: Calculus of bile duct without cholangitis or cholecystitis without obstruction., right upper quadrant abdominal pain, fatty food intolerance.. COMPARISON: No previous biliary scan is available for comparison. Abdominal ultrasound dated 09/18/2023 is available for comparison.. TECHNIQUE: Serial gamma scintillation camera images were obtained over the abdomen for a total observation period of 122 minutes following the intravenous administration of 5 mCi Tc-99m Mebrofenin. FINDINGS: There is good concentration of activity in the liver by 5 minutes post injection. Biliary activity is visualized by 15 minutes. The gallbladder is well visualized by 25 minutes. Small bowel is well visualized by 38 minutes. At 60 minutes post radiopharmaceutical injection, a 30-minute infusion of 1.3 micrograms Sincalide was then begun and an additional 40 minutes of images were obtained. There is good emptying of the gallbladder. By the end of the study there is good clearance of activity from the liver and visualization of diffuse small bowel activity. The calculated gallbladder ejection fraction is 56% (normal gallbladder ejection fraction is greater than 35%). NM/NM hepatobiliary w pharm IMPRESSION: Visualization of the gallbladder is evidence of a patent cystic duct and strong evidence against the diagnosis of acute cholecystitis. The common bile duct is patent. Gallbladder emptying and ejection fraction are normal. Liver function appears normal.
== END ==
LOC: HO.NUCMED 10:32
PROVIDERS: PCP Family Medicine; Visit Provider Surgery
DX: K80.50 Calculus of bile duct without cholangitis or cholecystitis without obstruction (principal)
CPT/HCPCS: 78227; A9537; J2805

== ENCOUNTER → 2023-10-18 10:42 | Outpatient (BNVA) | payer OTHER, SELFPAY | PROVIDERS: PCP Family Medicine; Visit Provider Surgery ==

== ENCOUNTER 2023-11-07 08:28 | Outpatient (REF) | payer OTHER, MEDICAID, SELFPAY ==
[2023-11-07 09:42] LABS: MANUAL DIFF FLAG NO
[2023-11-07 10:33] LABS: Basophils Percent Auto 0.6 % (0-2); Eosinophils Absolute Auto 0.1 X10*3/uL (0.0-0.4); Eosinophils Percent Auto 2.5 % (0-4); Hematocrit 37.4 % (37.0-47.0); Hemoglobin 12.5 g/dl (12.0-16.0); Imm Gran Abs Auto 0.01 X10*3/uL (0.00-0.03); Imm Gran Pct Auto 0.2 % (0.0-0.4); Lymphocytes Absolute Auto 1.8 X10*3/uL (1.2-4.9); Lymphocytes Percent Auto 34.7 % (20-40); Mean Corpuscular HGB Conc 33.4 g/dl (31.0-35.0); Mean Corpuscular Hemoglobin 31.2 pg (27.0-33.0); Mean Corpuscular Volume 93.3 fL (80.0-98.0); Mean Platelet Volume 10.8 fL (9.4-12.3); Monocytes Absolute Auto 0.4 X10*3/uL (0.1-1.2); Monocytes Percent Auto 8.1 % (2-11); Neutrophils Absolute Auto 2.8 x10*3/uL (2.0-8.3); Neutrophils Percent Auto 53.9 % (45-73); Platelet Count 229 X10*3/uL (160-400); Red Blood Count 4.01 X10*6/uL (4.20-5.50); Red Cell Distribution Width 12.5 % (11.0-16.0); White Blood Count 5.2 X10*3/uL (4.8-10.8)
[2023-11-07 11:38] LABS: Alanine Aminotransferase 26 U/L (0-31); Albumin Level 3.9 g/dL (3.5-5.0); Alkaline Phosphatase 94 U/L (39-117); Anion Gap 9 (12-20); Aspartate Amino Transferase 18 U/L (5-31); Bilirubin Total 0.4 mg/dL (0.0-1.0); Blood Urea Nitrogen 14 mg/dL (9-16); Calcium 9.5 mg/dL (8.4-10.2); Carbon Dioxide 29 mmol/L (22-29); Chloride 108 mmol/L (96-108); Estimated Glomerular Filt Rate > 60; Glucose Random 108 mg/dL (60-115); Potassium 4.3 mmol/L (3.3-5.1); Sodium 142 mmol/L (135-145); Total Protein 7.3 g/dL (6.5-8.0)
== END 2023-11-07 08:29 | disposition home or self-care (01) ==
LOC: HO.LAB 08:28
PROVIDERS: PCP Family Medicine; Visit Provider Physician Assistant
DX: R10.11 Right upper quadrant pain (principal); K58.9 Irritable bowel syndrome, unspecified; B19.10 Unspecified viral hepatitis B without hepatic coma
CPT/HCPCS: 36415; 80053; 85025; 99212

== ENCOUNTER 2023-11-07 08:28 | Outpatient (AMB) | payer MEDICAID, SELFPAY ==
--- NOTE | 2023-11-07 08:31 | A.OFFVIS_ITS ---
Intake Vital Signs 11/07/23 08:32 Height 5 ft Weight 147 lb 11.355 oz BMI 28.8 BP 144/67 H Blood Pressure Location Lt brachial Position Sitting Pulse 82 Intake Visit Reasons: Diarrhea Intake Note: Ashley presents in the office as a follow up for diarrhea. CC: She states that she has pains in her upper right quadrant. When she eats she gets a stabbing feeling in there and she states she is not eating foods with grease. Allergies aspirin [ASPIRIN] Allergy (Severe, Verified 11/07/23 08:33) SWELLING ibuprofen [From Motrin] Allergy (Mild, Verified 11/07/23 08:33) SWELLING lactose Allergy (Mild, Uncoded 11/07/23 08:33) Diarrhea Medication List - Last Reconciled 11/07/23 by Korina Holder PA-C albuterol sulfate 90 mcg/actuation 2 puffs inhalation Q6H PRN amlodipine 5 mg PO QAM cetirizine 10 mg PO DAILY PRN clonazepam 1 mg PO fluticasone furoate 100 mcg/actuation (Arnuity Ellipta) 1 inh inhalation QAM fluticasone propionate 110 mcg/actuation (Flovent HFA) 1 puff inhalation BID fluticasone propionate 50 mcg/actuation 1 spray intranasal BID hydroxyzine HCl 25 mg PO TID PRN levothyroxine 50 mcg PO QAM montelukast 10 mg PO QPM pantoprazole 40 mg PO QAM paroxetine HCl 20 mg PO QAM topiramate 25 mg PO Q12H HPI HPI Comments History of Present Illness Details A 53 y/o female referred ,for RUQ pain noted at bed time after eating cabbage-and beans acid- Seen last 2020- with constipation- she is eating HFD- has a normal bowel pattern.No issues- due for colonoscopy 2025- hx polyps She saw a surgeon for GB- not a surgical issue- she says her mother and sister had the surgery- Dr. Childress- 52-year-old female patient with a prior history of hepatitis-B now presenting with complaints of abdominal pain in the right upper quadrant radiating into the right back. Pain is associated with fatty food intake and began approximately 1 month prior to examination. A recent ultrasound reveals adenomyosis of a single area in the wall of the gallbladder. No other stones or sludge is identified. The gallbladder is physiologically distended. HIDA scan evaluation revealed normal gallbladder function with normal filling and emptying. This essentially rules out the gallbladder is the source of her abdominal pain. I recommended follow-up with Gastroenterology for further management of the abdominal pain. No surgical intervention is recommended at this time. Ultrasound in 6 to 12 months is recommended to re-evaluate the adenomyomatosis. She f/u with Dr.C. Wetzel for HBV- this jerson- for RUQ pain-she says this is not related She has no nausea, vomiting, hematemesis, hematochezia fever or chills [facility] Medical History (Updated 11/07/23 @ 10:06 by Korina Holder PA-C) Hepatitis B Hypothyroidism History of back pain Anemia Hx of migraines Anxiety Depression Seasonal allergies Asthma History of palpitations HTN (hypertension) History of colon polyps Thyroid condition Tubular adenoma Acid reflux Surgical History History of esophagogastroduodenoscopy (EGD) History of tubal ligation History of nasal septoplasty Hx of bilateral breast reduction surgery History of colonoscopy Family History Father Family history of high blood pressure Hx of type 1 diabetes mellitus Mother No problems noted. Social History Household Members: None Alcohol intake: never Patient Tobacco Use Status: Never used Tobacco Review of Systems Const All systems reviewed & are unremarkable except as noted in HPI and below Card Denies chest pain and Denies dyspnea Resp Denies dyspnea GI Reports abdominal pain (ruq), Denies change in bowel habits, Denies nausea and Denies vomiting Physical Exam Vital Signs: Last Vital Signs Pulse 82 11/07/23 08:32 BP 144/67 H 11/07/23 08:32 BMI result Body Mass Index 28.8 Const General: cooperative, comfortable, no acute distress and well groomed Orientation/consciousness: patient oriented x3 Limitations: no limitations Eyes Conjunctivae: conjunctival abnormal (Conjunctiva injected bilaterally no drainage) Resp Effort & Inspection: normal respiratory effort and able to speak in complete sentences Auscultation: clear to auscultation bilaterally, no rales, no rhonchi and no wheezes Cardio Rate: regular rate Rhythm: regular rhythm Heart sounds: S1 normal heart sound present and S2 normal heart sound present GI Inspection: Yes obesity Palpation (GI): Soft to palpation, nontender, no guarding and No Rebound tenderness present Auscultation: normal bowel sounds Skin General skin exam: no rashes or lesions noted Neuro General: patient oriented x3 Extrem General: Yes full ROM Psych Appearance: grossly normal and well kempt Mental Status: mental status grossly normal Speech and movement: Clear speech present Affect: Labile affect present Attitude: cooperative Thought content: Normal thought content present Results Reviewed Results Reviewed: Impression and Post Procedure Diagnosis: Endoscopy Findings: ESOPHAGUS: Normal STOMACH: Gastritis. Colonoscopy Findings: One small polyp removed Moderate to severe diverticulosis seen in the left colon Moderate hemorrhoids on retroflexed exam - likely source of rectal bleeding. Plan: Await pathology results Patient has an appointment on 10/12/20 in the [facility] with MILLA Lopez . Repeat Colonoscopy interval based on path results - in 5 years if polyps are adenomatous and 10 years if polyps are hyperplastic. Above findings were reviewed with the patient and GERD, colon polyps and diverticulosis handouts were given in the discharge area Surgeon: Segun Galindo MD Seen by Dr. Childress US/US abdomen complete IMPRESSION: No gallstones or biliary dilatation. Tiny areas of adenomyomatosis of the gallbladder. This is more conspicuous today than on 01/21/2023. Assessment & Plan Assessment & Plan (1) RUQ pain: Comment: Intermittent right upper quadrant-typically worse at night- With further evaluate check labs, check CBC CMP for liver enzymes- may have functional component Code(s): R10.11 - Right upper quadrant pain Plan: CBC/ cmp Low fodmap dicyclomine 10 mg (2) Hepatitis B: Comment: Follows with Infectious Disease Dr. Wetzel Code(s): B19.10 - Unspecified viral hepatitis B without hepatic coma Plan: Continue to follow plan of care Plan labs Orders: Orders Comprehensive Met. Panel Today K58.9 - Irritable bowel syndrome without diarrhea, R10.11 - Right upper quadrant pain Complete Blood Count Auto Diff Today R10.11 - Right upper quadrant pain Medications: New dicyclomine Take 1 QD- may increase up to tid 10 mg PO TID 90 caps 0RF 30 days Patient Instructions: Labs discyclomine low fod map call with concerns Follow-up office visit 8 weeks, sooner if indicated Coding Level of Care Code New Pt Level 3 (16627) Diagnoses RUQ pain R10.11 Hepatitis B B19.10 Time Spent (min) 30
[2023-11-07 08:32] VITALS: BP 144/67; PULSE 82; BMI 28.8
== END 2023-11-07 10:10 | disposition home or self-care (01) ==
PROVIDERS: PCP Family Medicine; Visit Provider Physician Assistant
DX: B19.10 Unspecified viral hepatitis B without hepatic coma (principal); R10.11 Right upper quadrant pain
CPT/HCPCS: 99214

== ENCOUNTER 2023-12-31 11:36 | Outpatient (AMB) | payer MEDICAID, SELFPAY ==
--- NOTE | 2023-12-31 11:45 | MHC.OFFVIS ---
Vital Signs 12/31/23 11:49 Height 5 ft Weight 148 lb BMI 28.9 BP 158/80 H Blood Pressure Location Lt brachial Position Sitting Pulse 88 Intake Visit Reasons: abd pain Intake Note: Patient follow up for abdominal pain Patient cc: right middle abdominal pain and swallowing problems. 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 Accompanied by: Spouse Allergies aspirin [ASPIRIN] Allergy (Severe, Verified 12/31/23 11:45) SWELLING ibuprofen [From Motrin] Allergy (Mild, Verified 12/31/23 11:45) SWELLING lactose Allergy (Mild, Uncoded 11/07/23 08:33) Diarrhea Medication List - Last Reconciled 12/31/23 by Korina Holder PA-C albuterol sulfate 90 mcg/actuation 2 puffs inhalation Q6H PRN amlodipine 5 mg PO QAM cetirizine 10 mg PO DAILY PRN clonazepam 1 mg PO dicyclomine 10 mg PO TID 30 days fluticasone furoate 100 mcg/actuation (Arnuity Ellipta) 1 inh inhalation QAM fluticasone propionate 110 mcg/actuation (Flovent HFA) 1 puff inhalation BID fluticasone propionate 50 mcg/actuation 1 spray intranasal BID hydroxyzine HCl 25 mg PO TID PRN levothyroxine 50 mcg PO QAM montelukast 10 mg PO QPM pantoprazole 40 mg PO QAM paroxetine HCl 20 mg PO QAM topiramate 25 mg PO Q12H HPI Comments Details: 53-year-old female Chronic abdominal pain- follows up with right upper quadrant pain-seen previously by surgeon there is no surgical intervention, recommended repeat ultrasound in 6-12 months by surgery. She as well had normal HIDA scan She had labs She has wandering abdominalpain- she does not eat beans as they cause gas- she eats a lot of [place] and gas- Her accompanies her they discuss her diet but does include multiple gas producing food She does get abdominal bloating however symptoms relieved after passing gas She has no nausea, vomiting hematemesis, hematochezia fever chills PFSH Medical History (Updated 01/01/24 @ 15:10 by Korina Holder PA-C) Hepatitis B Hypothyroidism History of back pain Anemia Hx of migraines Anxiety Depression Seasonal allergies Asthma History of palpitations HTN (hypertension) History of colon polyps Thyroid condition Tubular adenoma Acid reflux Surgical History History of esophagogastroduodenoscopy (EGD) History of tubal ligation History of nasal septoplasty Hx of bilateral breast reduction surgery History of colonoscopy Family History Father Family history of high blood pressure Hx of type 1 diabetes mellitus Mother No problems noted. Social History Household Members: None Alcohol intake: never Patient Tobacco Use Status: Never used Tobacco Review of Systems Const All systems reviewed & are unremarkable except as noted in HPI and below Card Denies chest pain and Denies dyspnea Resp Denies dyspnea GI Reports abdominal pain (RUQ-wander), Reports bloating, Denies hematochezia, Denies change in bowel habits, Denies GI cramping, Denies nausea and Denies vomiting Physical Exam Vital Signs: Last Vital Signs Pulse 88 12/31/23 11:49 BP 158/80 H 12/31/23 11:49 BMI result Body Mass Index 28.9 Const General: cooperative, healthy appearing, comfortable and no acute distress Orientation/consciousness: patient oriented x3 Limitations: no limitations Eyes Sclerae: sclerae normal Resp Effort & Inspection: normal respiratory effort and able to speak in complete sentences Auscultation: clear to auscultation bilaterally, no rales, no rhonchi and no wheezes Cardio Rate: regular rate Rhythm: regular rhythm Heart sounds: S1 normal heart sound present and S2 normal heart sound present GI Palpation (GI): Soft to palpation, nontender, no guarding and No Rebound tenderness present Auscultation: normal bowel sounds Skin General skin exam: no rashes or lesions noted Neuro General: patient oriented x3 Extrem General: Yes full ROM Psych Appearance: grossly normal and well kempt Mental Status: mental status grossly normal Speech and movement: Clear speech present Affect: normal affect Attitude: cooperative Thought process: Normal thought process present Thought content: Normal thought content present Insight: Good insight present (Psych) Judgement: Good judgement present (Psych) Assessment & Plan Assessment & Plan (1) RUQ pain: Comment: Very pleasant 53-year-old female Intermittent right upper quadrant-typically worse at night- With further evaluate check labs, check CBC CMP for liver enzymes- may have functional component Code(s): R10.11 - Right upper quadrant pain Category: Medical (2) Gas bloat syndrome: Code(s): K92.89 - Other specified diseases of the digestive system Category: Medical Plan: Low-fodmap (3) Hepatitis B: Comment: Follows with Infectious Disease Dr. Wetzel Code(s): B19.10 - Unspecified viral hepatitis B without hepatic coma Category: Medical Plan: Continue to follow with ID Plan Low fodmap simethicone Medications: New simethicone (Gas Relief (simethicone)) 125 mg PO TID-QID PRN 90 tabs 2RF abdominal distention Patient Instructions: Low FODMAP diet-reviewed with patient and Avoid culprits Simethicone Encouraged to call with questions or concerns Coding Level of Care Code Est Pt Level 3 (39763) Diagnoses RUQ pain R10.11 Gas bloat syndrome K92.89 Hepatitis B B19.10 Time Spent (min) 30
[2023-12-31 11:49] VITALS: BP 158/80; PULSE 88; BMI 28.9
== END 2023-12-31 12:54 | disposition home or self-care (01) ==
PROVIDERS: PCP Family Medicine; Visit Provider Physician Assistant
DX: R10.11 Right upper quadrant pain (principal); K92.89 Other specified diseases of the digestive system; B19.10 Unspecified viral hepatitis B without hepatic coma
CPT/HCPCS: 99213

== ENCOUNTER → 2023-12-31 11:36 | Outpatient (BNVA) | payer MEDICAID, SELFPAY | PROVIDERS: PCP Family Medicine; Visit Provider Physician Assistant | DX: R10.11 Right upper quadrant pain (principal); K92.89 Other specified diseases of the digestive system; B19.10 Unspecified viral hepatitis B without hepatic coma | CPT/HCPCS: 99212 ==

== ENCOUNTER 2024-01-17 08:38 | Outpatient (REF) | payer OTHER, SELFPAY ==
[2024-01-17 09:10] LABS: MANUAL DIFF FLAG NO
[2024-01-17 09:38] LABS: Basophils Percent Auto 0.7 % (0-2); Eosinophils Absolute Auto 0.1 X10*3/uL (0.0-0.4); Eosinophils Percent Auto 2.9 % (0-4); Hematocrit 37.7 % (37.0-47.0); Hemoglobin 12.8 g/dl (12.0-16.0); Imm Gran Abs Auto 0.01 X10*3/uL (0.00-0.03); Imm Gran Pct Auto 0.2 % (0.0-0.4); Lymphocytes Absolute Auto 1.5 X10*3/uL (1.2-4.9); Mean Corpuscular Hemoglobin 31.4 pg (27.0-33.0); Mean Corpuscular Volume 92.4 fL (80.0-98.0); Mean Platelet Volume 10.5 fL (9.4-12.3); Monocytes Absolute Auto 0.3 X10*3/uL (0.1-1.2); Neutrophils Absolute Auto 2.5 x10*3/uL (2.0-8.3); Neutrophils Percent Auto 56.2 % (45-73); Platelet Count 236 X10*3/uL (160-400); Red Blood Count 4.08 X10*6/uL (4.20-5.50); Red Cell Distribution Width 13.2 % (11.0-16.0); White Blood Count 4.5 X10*3/uL (4.8-10.8)
[2024-01-17 10:12] LABS: Creatinine Urine 169.65 mg/dL; Microalbum/Creatinine Ratio Ur 3.5 ug/mg cr (<30)
[2024-01-17 10:29] LABS: Alanine Aminotransferase 21 U/L (0-31); Albumin Level 4.1 g/dL (3.5-5.0); Alkaline Phosphatase 81 U/L (39-117); Anion Gap 12 (12-20); Aspartate Amino Transferase 19 U/L (5-31); Bilirubin Total 0.5 mg/dL (0.0-1.0); Blood Urea Nitrogen 17 mg/dL (9-16); Calcium 9.8 mg/dL (8.4-10.2); Carbon Dioxide 23 mmol/L (22-29); Chloride 109 mmol/L (96-108); Cholesterol 196 mg/dL (<200); Estimated Glomerular Filt Rate > 60; Glucose Random 106 mg/dL (60-115); HDL Cholesterol 57 mg/dL (>40); LDL Cholesterol Calculated 118 mg/dL (<100); Potassium 4.2 mmol/L (3.3-5.1); Sodium 140 mmol/L (135-145); Total Protein 7.2 g/dL (6.5-8.0); Triglycerides 109 mg/dL (<150)
[2024-01-17 10:36] LABS: TSH reflex Free T4 1.47 uIU/mL (0.32-4.0)
[2024-01-20 08:42] LABS: HBS Num1 0.12 mIU/mL (0-7.99); HBc Num1 6.21 S/CO (0.00-0.79); ~Hepatitis B Surface Antibody NONREACTIVE (Nonreactive)
[2024-01-20 10:54] LABS: HBsAGNum2 Reactive
[2024-01-20 10:55] LABS: HBsAGNum3 Reactive; Hepatitis B Surface Antigen Retest CNFM (Negative)
[2024-01-20 11:50] LABS: HBc Num3 6.23 S/CO; Hepatitis B Core Antibody Reactive (Nonreactive)
[2024-01-22 04:05] LABS: Hepatitis B Core Antibody IgM NON-REACTIVE (NON-REACTIVE)
== END 2024-01-17 08:39 | disposition home or self-care (01) ==
LOC: HO.LAB 08:38
PROVIDERS: PCP Family Medicine; Visit Provider Family Medicine
DX: E66.9 Obesity, unspecified (principal); Z68.30 Body mass index [BMI] 30.0-30.9, adult; Z11.59 Encounter for screening for other viral diseases; E03.9 Hypothyroidism, unspecified
CPT/HCPCS: 36415; 80053; 80061; 82043; 82570; 84443; 85025; 86704; 86705; 86706; 87340

== ENCOUNTER 2024-01-21 11:05 | Outpatient (REF) | payer OTHER, SELFPAY ==
--- NOTE | ~2024-01-21 | MM_ITS ---
EXAMINATION: MM SCREENING DIGITAL BREAST TOMOSYNTHESIS, BILATERAL CLINICAL INFORMATION: Screening. Asymptomatic. The patient is status post bilateral breast reduction. COMPARISON: Mammography: This study is compared with prior exams dating back to 2019. TECHNIQUE: Digital breast tomosynthesis is performed in both the craniocaudal and mediolateral oblique views along with computer-aided detection (CAD). Synthesized 2D images are generated from the tomosynthesis. FINDINGS: The breasts are almost entirely fatty (ACR BI-RADS breast composition Category a). There are no significant masses, abnormal calcifications, or other abnormalities. Post reduction changes are present bilaterally. MM/MM tomosynthesis screening BI IMPRESSION: No mammographic evidence of malignancy. ASSESSMENT: BI-RADS BI-RADS 2 - Benign Findings RECOMMENDATION: Routine annual mammography screening. 1 year F/U This examination should not preclude the clinical evaluation of a suspicious palpable abnormality. This patient's information was entered into a reminder system with a target due date for their next mammogram.
== END 2024-01-21 11:06 | disposition home or self-care (01) ==
LOC: HO.MAMMO 11:05
PROVIDERS: PCP Family Medicine; Visit Provider Family Medicine
DX: Z12.31 Encounter for screening mammogram for malignant neoplasm of breast (principal)
CPT/HCPCS: 77063; 77067

== ENCOUNTER → 2024-01-21 11:30 | Outpatient (BNV) | payer OTHER, SELFPAY | PROVIDERS: PCP Family Medicine; Visit Provider Radiology Diagnostic Radiology | DX: Z12.31 Encounter for screening mammogram for malignant neoplasm of breast (principal) | CPT/HCPCS: 77063; 77067 ==

== ENCOUNTER 2024-02-18 09:41 | Outpatient (REF) | payer OTHER, SELFPAY ==
[2024-02-18 09:58] LABS: MANUAL DIFF FLAG NO
[2024-02-18 10:22] LABS: Basophils Percent Auto 0.5 % (0-2); Eosinophils Absolute Auto 0.1 X10*3/uL (0.0-0.4); Eosinophils Percent Auto 3.3 % (0-4); Hematocrit 37.3 % (37.0-47.0); Hemoglobin 12.5 g/dl (12.0-16.0); Imm Gran Abs Auto 0.01 X10*3/uL (0.00-0.03); Imm Gran Pct Auto 0.2 % (0.0-0.4); Lymphocytes Absolute Auto 1.7 X10*3/uL (1.2-4.9); Lymphocytes Percent Auto 40.5 % (20-40); Mean Corpuscular HGB Conc 33.5 g/dl (31.0-35.0); Mean Corpuscular Hemoglobin 31.5 pg (27.0-33.0); Mean Platelet Volume 10.4 fL (9.4-12.3); Monocytes Absolute Auto 0.3 X10*3/uL (0.1-1.2); Neutrophils Absolute Auto 2.1 x10*3/uL (2.0-8.3); Neutrophils Percent Auto 48.5 % (45-73); Platelet Count 237 X10*3/uL (160-400); Red Blood Count 3.97 X10*6/uL (4.20-5.50); Red Cell Distribution Width 12.8 % (11.0-16.0); White Blood Count 4.3 X10*3/uL (4.8-10.8)
[2024-02-18 11:04] LABS: Alanine Aminotransferase 21 U/L (0-31); Albumin Level 4.1 g/dL (3.5-5.0); Aspartate Amino Transferase 20 U/L (5-31); Bilirubin Total 0.6 mg/dL (0.0-1.0); Estimated Glomerular Filt Rate > 60
[2024-02-18 11:13] LABS: HIV AB/AG Nonreactive (Nonreactive); HIV Num 1 0.04 S/CO (0.00-0.99); ~HepC Num1 0.14 S/CO (0.00-0.79); ~Hepatitis C Antibody Nonreactive (Nonreactive)
[2024-02-18 11:14] LABS: Syphilis Screen Nonreactive (Nonreactive)
[2024-02-18 13:50] LABS: CT PCR NOT DETECTED (Not Detect.); NG PCR NOT DETECTED (Not Detect.)
[2024-02-21 18:14] LABS: Hepatitis B Viral DNA Qn - cp 2.61 Log IU/mL (NOT DETECTED); Hepatitis B Viral DNA Qn-IU/mL 405 IU/mL (NOT DETECTED)
== END 2024-02-18 09:42 | disposition home or self-care (01) ==
LOC: HO.LAB 09:41
PROVIDERS: PCP Family Medicine; Visit Provider Internal Medicine Infectious Disease
DX: B18.1 Chronic viral hepatitis B without delta-agent (principal)
CPT/HCPCS: 82040; 82247; 82565; 84450; 84460; 85025; 86780; 86803; 87389; 87491; 87517; 87591

== ENCOUNTER 2024-03-17 14:29 | Outpatient (REF) | payer OTHER, SELFPAY ==
[2024-03-20 10:03] LABS: HPV mRNA E6/E7 Not Detected (Not Detected)
== END 2024-03-17 14:30 | disposition home or self-care (01) ==
LOC: HO.CHCLNP 14:29
PROVIDERS: Visit Provider Family Medicine
DX: Z12.4 Encounter for screening for malignant neoplasm of cervix (principal); Z11.51 Encounter for screening for human papillomavirus (HPV)
CPT/HCPCS: 36415; 87624; 88175

== ENCOUNTER 2024-05-25 13:39 | Outpatient (REF) | payer OTHER, SELFPAY ==
[2024-05-25 14:20] LABS: MANUAL DIFF FLAG NO
[2024-05-25 14:32] LABS: Basophils Percent Auto 0.4 % (0-2); Eosinophils Absolute Auto 0.2 X10*3/uL (0.0-0.4); Eosinophils Percent Auto 3.8 % (0-4); Hematocrit 35.4 % (37.0-47.0); Hemoglobin 11.7 g/dl (12.0-16.0); Imm Gran Abs Auto 0.01 X10*3/uL (0.00-0.03); Imm Gran Pct Auto 0.2 % (0.0-0.4); Lymphocytes Percent Auto 42.1 % (20-40); Mean Corpuscular HGB Conc 33.1 g/dl (31.0-35.0); Mean Corpuscular Hemoglobin 31.3 pg (27.0-33.0); Mean Corpuscular Volume 94.7 fL (80.0-98.0); Mean Platelet Volume 10.6 fL (9.4-12.3); Monocytes Absolute Auto 0.3 X10*3/uL (0.1-1.2); Monocytes Percent Auto 6.5 % (2-11); Neutrophils Absolute Auto 2.3 x10*3/uL (2.0-8.3); Platelet Count 227 X10*3/uL (160-400); Red Blood Count 3.74 X10*6/uL (4.20-5.50); Red Cell Distribution Width 12.5 % (11.0-16.0); White Blood Count 4.8 X10*3/uL (4.8-10.8)
[2024-05-25 15:01] LABS: Alanine Aminotransferase 25 U/L (0-31); Albumin Level 3.8 g/dL (3.5-5.0); Alkaline Phosphatase 91 U/L (39-117); Anion Gap 10 (12-20); Aspartate Amino Transferase 27 U/L (5-31); Bilirubin Total 0.3 mg/dL (0.0-1.0); Blood Urea Nitrogen 12 mg/dL (9-16); Calcium 9.7 mg/dL (8.4-10.2); Carbon Dioxide 25 mmol/L (22-29); Chloride 108 mmol/L (96-108); Estimated Glomerular Filt Rate > 60; Glucose Random 123 mg/dL (60-115); Potassium 3.7 mmol/L (3.3-5.1); Sodium 139 mmol/L (135-145); Total Protein 6.8 g/dL (6.5-8.0)
[2024-05-25 15:09] LABS: TSH reflex Free T4 1.26 uIU/mL (0.32-4.0)
[2024-05-25 15:20] LABS: Folate 7.1 ng/mL (> or = 4.0); Vitamin B12 346 pg/mL (200-900)
== END 2024-05-25 13:40 | disposition home or self-care (01) ==
LOC: CF 13:39
PROVIDERS: Visit Provider Family Medicine
DX: R52 Pain, unspecified (principal)
CPT/HCPCS: 36415; 80053; 82607; 82746; 84443; 85025

== ENCOUNTER 2024-07-30 10:31 | Outpatient (REF) | payer MEDICAID, SELFPAY ==
[2024-07-30 11:02] LABS: MANUAL DIFF FLAG NO
[2024-07-30 11:20] LABS: Basophils Percent Auto 0.8 % (0-2); Eosinophils Absolute Auto 0.1 X10*3/uL (0.0-0.4); Eosinophils Percent Auto 3.2 % (0-4); Hematocrit 39.1 % (37.0-47.0); Hemoglobin 12.8 g/dl (12.0-16.0); Imm Gran Abs Auto 0.01 X10*3/uL (0.00-0.03); Imm Gran Pct Auto 0.3 % (0.0-0.4); Lymphocytes Absolute Auto 1.7 X10*3/uL (1.2-4.9); Lymphocytes Percent Auto 44.5 % (20-40); Mean Corpuscular HGB Conc 32.7 g/dl (31.0-35.0); Mean Corpuscular Hemoglobin 30.9 pg (27.0-33.0); Mean Corpuscular Volume 94.4 fL (80.0-98.0); Mean Platelet Volume 10.4 fL (9.4-12.3); Monocytes Absolute Auto 0.2 X10*3/uL (0.1-1.2); Monocytes Percent Auto 6.2 % (2-11); Neutrophils Absolute Auto 1.7 x10*3/uL (2.0-8.3); Platelet Count 238 X10*3/uL (160-400); Red Blood Count 4.14 X10*6/uL (4.20-5.50); Red Cell Distribution Width 12.8 % (11.0-16.0); White Blood Count 3.7 X10*3/uL (4.8-10.8)
[2024-07-30 11:24] LABS: INTERNATIONAL NORM RATIO 0.9 (0.9-1.1); Prothrombin Time 10.9 SEC (10.9-12.4)
[2024-07-30 11:44] LABS: Alanine Aminotransferase 28 U/L (0-31); Albumin Level 4.2 g/dL (3.5-5.0); Aspartate Amino Transferase 25 U/L (5-31); Bilirubin Total 0.5 mg/dL (0.0-1.0); Estimated Glomerular Filt Rate > 60
[2024-07-30 12:04] LABS: HIV AB/AG Nonreactive (Nonreactive); HIV Num 1 0.06 S/CO (0.00-0.99)
[2024-07-30 12:06] LABS: Syphilis Screen Nonreactive (Nonreactive)
[2024-07-30 15:19] LABS: CT PCR NOT DETECTED (Not Detect.); NG PCR NOT DETECTED (Not Detect.)
[2024-07-31 12:03] LABS: Hepatitis B Viral DNA Qn - cp 2.57 Log IU/mL (NOT DETECTED); Hepatitis B Viral DNA Qn-IU/mL 370 IU/mL (NOT DETECTED)
[2024-08-04 15:05] LABS: FIB-ALT 22 U/L (6-29); FIB-Alpha-2-Macroglobulin 196 mg/dL (106-279); FIB-Apolipoprotein A1 166 mg/dL (101-198); FIB-GGT 11 U/L (3-70); FIB-Haptoglobin 135 mg/dL (43-212); FIB-Total Bilirubin 0.5 mg/dL (0.2-1.2); Liver Fibrosis Stage F0; Nec Inflam Act Grade A0; Nec Inflam Act Score 0.07; Reference ID 5275984
== END 2024-07-30 10:32 | disposition home or self-care (01) ==
LOC: HO.LAB 10:31
PROVIDERS: PCP Family Medicine; Visit Provider Internal Medicine Infectious Disease
DX: B18.1 Chronic viral hepatitis B without delta-agent (principal)
CPT/HCPCS: 36415; 81596; 82040; 82247; 82565; 84450; 84460; 85025; 85610; 86780; 87389; 87491; 87517; 87591

== ENCOUNTER 2024-08-13 07:47 | Outpatient (REF) | payer MEDICAID, SELFPAY ==
[2024-08-13 08:36] LABS: Estimated Average Glucose 120 mg/dL; Hemoglobin A1C 132.5761 umol/L; Hemoglobin A1c % 5.8 % (<6.0); Total Hemoglobin (HGBA1C) 3336.6634 umol/L
[2024-08-13 08:46] LABS: Cholesterol 193 mg/dL (<200); HDL Cholesterol 49 mg/dL (>40); LDL Cholesterol Calculated 123 mg/dL (<100); Triglycerides 109 mg/dL (<150)
== END 2024-08-13 07:48 | disposition home or self-care (01) ==
LOC: HO.LAB 07:47
PROVIDERS: PCP Family Medicine; Visit Provider Internal Medicine
DX: E66.3 Overweight (principal)
CPT/HCPCS: 36415; 80061; 83036

== ENCOUNTER 2024-09-02 08:40 | Outpatient (REF) | payer MEDICAID, SELFPAY ==
--- OUTSIDE RECORDS SUMMARY | 2024-09-02 08:43 | XMS_ITS | Data Portability ---
Author Organization [place] - JOHN COLEMAN MD [facility], Main Office Address [address] [place] [id number] Assessment Encounter Date Assessment Date Assessment LastModified by Organization Details LastModified Time 08/27/2023 08/27/2023 telehealth. doximity. 19 min. [place] home in [place] [email or web address] Not available 08/27/2023 10:30:23 09/19/2023 09/19/2023 VIDEO. telehealth. [facility]ximity. 19 [place]. [place] [email or web address] Not available 09/19/2023 19:27:02 08/27/2024 08/27/2024 Telehealth. 17 min; [place]. [place]; [place] in office in [place]; [facility] [email or web address] Not available 08/28/2024 10:31:52 Plan of Treatment Reminders Order Date Submit Date Provider Last Modified By Organization Details Last Modified Time Details Appointments None recorded. Lab hepatitis B DNA, quantitati ve, serum [address] (Lab), [address] [place] [address], [address], 3 15:59:15 hepatitis D virus Ab panel, serum [address] (Lab), [address] [place] [address], [address], 3 15:59:16 CBC w/ diff [address] (Lab), [address] [place] [address], [address], 3 15:59:16 ALT (alanine aminotrans ferase), serum or plasma [address] [place] [address] (Lab), [address] [place] [address], [address], 3 15:59:16 AST/SGOT (aspartate aminotrans ferase), serum or plasma [address] [place] [address] (Lab), [address] [place] [address], [address], 3 15:59:16 CT + NG DNA, PCR, unspecifie d specimen [address] [place] [address] (Lab), [address] [place] [address], [address], 3 15:59:16 creatinine w/ estimated GFR (eGFR), serum or plasma [address] [place] [address] (Lab), [address] [place] [address], [address], 3 15:59:16 hepatitis C virus Ab, serum [address] [place] [address] (Lab), [address] [place] [address], [address], 3 15:59:17 RPR (rapid plasma reagin), serum [address] [place] [address] (Lab), [address] [place] [address], [address], 3 15:59:17 hepatitis B virus e Ag, QN, serum [address] [place] [address] (Lab), [address] [place] [address], [address], 3 15:59:17 hepatitis B virus e Ab, QN, serum [address] (Lab), [address] [place] [address], [address], 3 15:59:17 hepatitis C liver status biomarker panel, serum [address] (Lab), [address] [place] [address], [address], 3 15:59:17 hepatitis B DNA, quantitati ve, serum [address] (Lab), [address] [place] [address], [address], 4 16:25:25 hepatitis D virus Ab panel, serum [address] (Lab), [address] [place] [address], [address], 4 16:25:25 CBC w/ diff [address] (Lab), [address] [place] [address], [address], 4 16:25:25 CT + NG DNA, PCR, unspecifie d specimen [address] (Lab), [address] [place] [address], [address], 4 16:25:26 creatinine w/ estimated GFR (eGFR), serum or plasma [address] (Lab), [address] [place] [address], [address], 4 16:25:26 hepatitis C virus Ab, serum [address] (Lab), [address] [place] [address], [address], 4 16:25:26 RPR (rapid plasma reagin), serum [address] (Lab), [address] [place], [address], 4 16:25:26 hepatitis B virus e Ag, QN, serum [address] (Lab), [address] [place], [address], 4 16:25:26 hepatitis B virus e Ab, QN, serum [address] (Lab), [address] [place] [address], [address], 4 16:25:26 hepatitis C liver status biomarker panel, serum [address] (Lab), [address] [place] [address], [address], 4 16:25:27 BMP, serum or plasma [address] (Lab), [address] [place] [address], [address], 4 16:25:27 hepatitis B DNA, quantitati ve, serum [address] (Lab), [address] [place], [address], 4 09:27:22 CBC w/ diff [address] (Lab), [address] [place] [address], [address], 4 09:27:23 ALT (alanine aminotrans ferase), serum or plasma [address] (Lab), [address] [place] [address], [address], 4 09:27:23 AST/SGOT (aspartate aminotrans ferase), serum or plasma [address] (Lab), [address] [place] [address], [address], 4 09:27:23 CT + NG DNA, PCR, unspecifie d specimen [address] (Lab), [address] [place] [address], [address], 4 09:27:23 creatinine w/ estimated GFR (eGFR), serum or plasma [address] (Lab), [address] [place] [address], [address], 4 09:27:23 hepatitis C virus Ab, serum [address] (Lab), [address] [place] [address], [address], 4 09:27:23 RPR (rapid plasma reagin), serum [address] (Lab), [address] [place] [address], [address], 4 09:27:23 HIV (1+2) Ab screen, serum [address] (Lab), [address] [place] [address], [address], 4 09:27:24 bilirubin, total, serum or plasma [address] (Lab), [address] [place], [address], 4 09:27:24 albumin, serum or plasma [address] (Lab), [address] [place], [address], 4 09:27:24 hepatitis B DNA, quantitati ve, serum 2024 025 [facility] (Lab), [address] [place] [address], [address], 5 10:39:53 CBC w/ diff 2024 025 [facility] (Lab), [address] [place] [address], 790[address], 5 10:39:53 ALT (alanine aminotrans ferase), serum or plasma 2024 025 [facility] (Lab), [address] [place] [address], 66[address], 5 10:39:52 AST/SGOT (aspartate aminotrans ferase), serum or plasma 2024 025 [facility] (Lab), [address] [place] [address], [address], 5 10:39:52 CT + NG DNA, PCR, unspecifie d specimen 2024 025 [facility] (Lab), [address] [place] [address], [address], 5 10:39:53 creatinine w/ estimated GFR (eGFR), serum or plasma 2024 025 [facility] (Lab), [address] [place] [address], [address], 5 10:39:52 hepatitis C virus Ab, serum 2024 025 [facility] (Lab), [address] [place] [address], [address], 5 10:39:53 RPR (rapid plasma reagin), serum 2024 025 [facility] (Lab), [address] [place] [address], 00474, 5 10:39:52 HIV (1+2) Ab screen, serum 2024 025 [facility] (Lab), [address] [place] [address], 16708, 5 10:39:52 bilirubin, total, serum or plasma 2024 025 [facility] (Lab), [address] [place] [address], 989[address], 5 10:39:53 albumin, serum or plasma 2024 025 [facility] (Lab), [address] [place] [address], [address], 5 10:39:53 Referral None recorded. Procedures None recorded. Surgeries None recorded. Imaging US, liver - dx HBV; fatty liver: HCC screen testing [email or web address] (Imaging), [address] [place] [address], [address], 4 13:31:52 US, abdomen - HBV. HCC SCreen; hx fatty liver; and GB adenomyoma tosis per previous scan 2024 025 [facility] (Imaging), [address] [place] [address], [address], 5 10:35:39 Medication Orders None recorded. Patient TargetsNo targets recorded. Patient InstructionsNo instructions recorded. Reason for Referral None Reported. Results Created Date Observation Date Name Description Value Unit Range Abnormal Flag Note LastModifiedBy Organization Detail LastModifiedTime 09/20/19 24 09/18/2023 US, liver No observ ation record ed. eloy [facility] (Imaging) [address] [place] [address], [address], 09/23/2023 13:02:29 Result Notes None recorded. Problems Name Problem SNOMED Code Status Onset Date Resolution Date Notes Provider Name and Address Organization Details Recorded Time Steatosis of liver 963936784 Active 2023 John Vickers MD [address] [place] [address], [address], LIANNE VICKERS MD [facility] 10:35:09 Adenomyomatosi s of gallbladder 731093601 Active 2023 John Vickers MD [address] [place] [address], [address], LIANNE VICKERS MD [facility] 10:24:47 Problem Notes None recorded. Procedures Surgical History None recorded. Imaging Results Imaging Date Name Status LastModified by Organiz ation Details LastModified Time 09/18/2023 [facility] [address] [place] [address], [address], 09/23/2023 13:02:29 Procedure Notes None recorded. Medical Equipment None Reported. Vitals None Recorded Social History None recorded. Functional Status None recorded. Mental Status None recorded. Family History Nothing Reported. Medical History No medical history recorded. Gynecological HistoryNo gynecological history recorded. Obstetrics History GPAL:G 0 P 0 0 0 0 Past Encounters Encounter ID Performer Location Encounter Start Date Encounter Closed Date Diagnosis/Indication Diagnosis SNOMED-CT Code Diagnosis ICD10 Code Diagnosis Note [id number] Ethel Rivera Main Office [address] [place] [phone] 04/29/2023 12:56:09 04/30/2023 17:08:59 Chronic type B viral hepatitis 17328576 B18.1 HBV. monitor labs; no tx. no need for tx so far based on current guidelines . pt prefers not to be on HBV tx. Benefits and risks of HBV tx reviewed. Benefits include HBV suppressio n, decrease in liver progressio n. untreated HBV may lead to liver disease, liver cancer, liver , lymphomas, renal disease among other condom use reviewed. safe sex. She is aware of PreP availabili ty which would also help for HBV tx such as TRuvada, for example; declines at current time flu, shingles, pneumonia vaccine recommende d Plan of care reviewed Steatosis of liver 1007 K76.0 diet and exercise reviewedav oid ETOH.incre ase water intake. 1993 oJhn Vickers MD Main Office [address] [place] [address] 08/27/2023 10:39:49 08/27/2023 11:01:55 Chronic type B viral hepatitis 45562871 B18.1 HBV.monito r labs; no tx. no need for tx so far based on current guidelines . pt prefers not to be on HBV tx.Benefit s and risks of HBV tx reviewed. Benefits include HBV suppressio n, decrease in liver progressio n. untreated HBV may lead to liver disease, liver cancer, liver , lymphomas, renal disease among otherHOuse hold members should be vaccinated . condom use reviewed. safe sex.She is aware of PreP availabili tyPlan of care reviewed Adult heal th examination 816276375 Z00.00 labs ordered [id number] John Vickers MD Main Office [address] [place] [address] 09/19/2023 10:01:15 11/04/2023 13:55:01 Chronic type B viral hepatitis 14379795 B18.1 HBV.monito r labs; no tx. no need for tx so far based on current guidelines . pt prefers not to be on HBV tx.Benefit s and risks of HBV tx reviewed. Benefits include HBV suppressio n, decrease in liver progressio n. untreated HBV may lead to liver disease, liver cancer, liver , lymphomas, renal disease among otherShe is aware of PreP availabili ty. also aware than some of the HBV regimens can be used for PreP as well.Plan of care reviewed Adenomyoma tosis of gallbladder 203959932 K82.8 will see GI; referred by PCP. [id number] John Vickers MD Main Office [address] [place] [address] 02/07/2024 09:16:44 02/07/2024 10:45:21 Chronic type B viral hepatitis 12021380 B18.1 HBV.monito r labs; no tx. no need for tx so far based on current guidelines . pt prefers not to be on HBV tx.Benefit s and risks of HBV tx reviewed. Benefits include HBV suppressio n, decrease in liver progressio n. untreated HBV may lead to liver disease, liver cancer, liver , lymphomas, renal disease among otherShe is aware of PreP availabili ty. also aware than some of the HBV regimens can be used for PreP as well.avoid ETOHcall with any new medsPlan of care reviewed Adenomyoma tosis of gallbladder 017753909 K82.[address] scan reports done at [facility] Steatosis of liver 1007 K76.0 diet and exercise reviewedav oid ETOH.incre ase water intake.vit E suggested. [id number] John Vickers MD Main Office [address] [place] [address] 08/28/2024 10:19:34 08/28/2024 10:34:15 Chronic type B viral hepatitis 46320283 B18.1 HBV.monito r labs; no tx. no need for tx so far based on current guidelines . pt prefers not to be on HBV tx.She is aware of PreP availabili ty. also aware than some of the HBV regimens can be used for PreP as well.avoid ETOHu/s abdomen ordered HCC screenvacc kacie recommende d such as COVID19, flu among othercall with any new medslabs prior to next visitPlan of care reviewed Adenomyoma tosis of gallbladder 175897401 K82.[address] [facility] [facility] Steatosis of liver 1007 K76.0 diet and exercise reviewedav oid ETOH.incre ase water intake.ivy shukla loss reviewedu/ s abd Health Concerns Section Related Observation LastModified by Organization Detai ls LastModified Time None Recorded Concern Status LastModified by Organization Details LastModified Time None Recorded Advance Directives Directive None Recorded Payers Encounter Date Sequence Insurance Name Policy Number Policy Sanchez Covered Member ID Sanchez Member ID Guarantor Name 04/29/2023 1 [facility] [id number] Ashley Marshall [id number] Ashley Marshall 08/27/2023 1 [facility] [id number] Ashley Marshall [id number] Ashley Marshall 08/27/2023 2 [place] [facility] Ashley Marshall [id number] Ashley Marshall 09/19/2023 1 [facility] [id number] Ashley Marshall [id number] Ashley Marshall 09/19/2023 2 [place] [facility] Ashley Marshall [id number] Ashley Marshall 02/07/2024 1 [facility] [id number] Ashley Marshall [id number] Ashley Marshall 02/07/2024 2 [place] [facility] Ashley Marshall [id number] Ashley Marshall 08/27/2024 1 [place] [id number] Ashley Marshall [id number] Ahsley Marshall 08/27/2024 2 [place] [facility] Ashley Marshall [id number] Ashley Marshall Notes Date Note Type Note Provider Name and Address Organization Details Recorded Time 04/29/2023 text/html f/u HBVTelemedic ine Visit. [place] in [place]; [place] at office in [place]. 19 min visit. AUDIO VISITwill get labs drawn this weekhad labs done on ,3, but no HBV labs; labs ordered by PCP at [place]. HBV DNA VL 683 IU/ml; HCV neg; HIV neg; GC/chlamydia neg; glu 113; eGFR>60; AST/ALT ; no anemia; not on HBV tx. feels well.02/2022 HBV VL PCR 199; eGFR=58; HCV neg; HIV neg; neg syphilis; ALt/AST wnl; CBC wnlu/s 11/2021 and 12/2019 unremarkable; 12/2022 u/s abd fatty liver. weight gainhas HBP per pt; HBP detected at PCP office; meds prescribed.no jaundice. no rash.no n/v/dmed list reviewedsexually active w who has nor HBV nor HIV. pt is not interested in PrePno STI labs.no new meds nor OTCno concerns; no RUQ pain. no leg edema; no jaundicedenies ETOH use. denies drug useno fever.no jaundice. no leg swelling LIANNE Jimenez MD [facility] 05/08/2023 10:21:01 08/27/2023 text/html f/u HBV04/2023 H BV labs not done; ASLt/AST wnl; eGFR okprevious labs show: HBV DNA VL 683 IU/ml; HCV neg; HIV neg; GC/chlamydia neg; glu 113; eGFR>60; AST/ALT ; no anemia; not on HBV tx. feels well.02/2022 HBV VL PCR 199; eGFR=58; HCV neg; HIV neg; neg syphilis; ALt/AST wnl; CBC wnlmed list reviewedno jaundice. no rash.no n/v/dmed list reviewedsexually active w who has nor HBV nor HIV. she reports he is vaccinated for hBV.no STI labs.no new meds nor OTCno concerns; no RUQ pain. no leg edema; no jaundicedenies ETOH use. denies drug useno fever.no jaundice. no leg swellingu/s 11/2021 and 12/2019 unremarkable; 12/2022 u/s abd fatty liver. needs u/s abdno new medical issues John Vickers MD [address] [place] [address], [phone], LIANNE VICKERS MD [facility] 08/27/2023 10:41:56 09/19/2023 text/html f/u HBV.not on t x by choice.08/28/2023 Fibrosure F0; HDV negshe was told has adenomyomatosis of GB; was present on 2022.;she will see a surgeon on 10/01/23 for gallbladder evaluation. i do not have u/s report here.no other concerns. no abd pain. no n.v.d, abdominal discomfort after she eats. no weight loss. no fever. no hgikfkpf85/2023 HBV labs not done; ASLt/AST wnl; eGFR okprevious labs show: HBV DNA VL 683 IU/ml; HCV neg; HIV neg; GC/chlamydia neg; glu 113; eGFR>60; AST/ALT 22/24; no anemia; not on HBV tx. feels well.02/2022 HBV VL PCR 199; eGFR=58; HCV neg; HIV neg; neg syphilis; ALt/AST wnl; CBC wnlmed list reviewedno new meds nor OTCdenies ETOH use. denies drug useu/s 11/2021 and 12/2019 unremarkable; 12/2022 u/s abd fatty liver. needs u/s abdno new medical issues John Vickers MD [address] [place], [address], [place] LIANNE VICKERS MD [facility] 09/22/2023 21:33:42 02/07/2024 text/html f/u HBV.not on t x by choice.08/28/2023 Fibrosure F0; HDV neghad CT scan done in [place]. due to u/s 08/2023 that shows adenomyomatosis of GB; was present on 2022.;no other concerns. no abd pain. no n.v.d, abdominal discomfort after she eats. no weight loss. no fever. no zjoennzi60/2023 HBV labs not done; ASLt/AST wnl; eGFR ok ; HBV DNA VL 683 IU/ml; HCV neg; HIV neg; GC/chlamydia neg; glu 113; eGFR>60; AST/ALT 22/24; no anemia; not on HBV tx. feels well.02/2022 HBV VL PCR 199; eGFR=58; HCV neg; HIV neg; neg syphilis; ALt/AST wnl; CBC wnlmed list reviewedno new meds nor OTCdenies ETOH use. denies drug useno new medical issueshas one male sexual partner John Vickers MD [address] [place], [address], [place] LIANNE VICKERS MD [facility] 02/07/2024 14:52:16 08/27/2024 text/html f/u HBV.not on t x by choice.07/2024 HBV RR=184; ALT/AST wnl; eGFE>60; negative HIV and negative syphillis. neg GC/chlamydia08/28/2023 Fibrosure F0; HDV neghad u/s and CT scan done in [place]. due to u/s 08/2023 that shows adenomyomatosis of GB; was present on 2022.;no other concerns. no abd pain. no n.v.d, abdominal discomfort after she eats. no weight loss. no fever. no jaundicemed list reviewedno new meds nor OTCdenies ETOH use. denies drug useno new medical issueshas one male partner; denies sexual activityno STI sxshe reports household is vaccinated John Vickers MD [address] [place] [address], [phone], LIANNE - JOHN VICKERS MD [facility] 08/28/2024 10:34:13 OBGyn Episode No OBEpisode recorded.
--- OUTSIDE RECORDS SUMMARY | 2024-09-02 08:43 | XMS_ITS | Encounter Summary ---
Author Organization [employer] [facility] Address [address] [place] [address] [address] [place] [address] Care Team Providers Care Paper Novelty Maker Name Role Phone Ashlee Meza MD Primary Care Provider [phone] Morgan Curran MD Primary Care Prov ider Reason for Visit * Reason Comments Med Refill Encounter Details Date Type Department Care Team ([facility] st Contact Info) Description 09/14/2022 Refill [facility] MEDICINE [address] [place] [address] Cornell Bucio FNP Anxiety (Primary Dx) Social History Tobacco Use Types Packs/Day Years Used Date Smoking Tobacco: Never Passive Smoke Exposure: Never Smokeless Tobacco: Never Alcohol Use Standard Drinks/Week Comments Never 0 (1 standard drink = 0.6 oz pur e alcohol) Comments Unknown Sex and Gender Information Value Date Recorded Sex Assigned at Female 05/28/2022 10:18 AM EDT Legal Sex Female 10:18 AM EDT Gender Identity Female 05/28/2022 10:18 AM EDT Sexual Orientation Choose not to disclose 2021 10:18 AM EDT COVID-19 Exposure Response Date Recorded In the last 10 days, have yo u been in contact with someone who was confirmed or suspected to have Coronavirus/COVID-19? No / Unsure 09/13/2022 9:42 AM EST documented as of this encounter Plan of Treatment Not on file documented as of this encounter Visit Diagnoses Diagnosis Anxiety- Primary Anxiety state, unspecified documented in this encounter Care Teams Paper Novelty Maker Relationship Specialty Start Date End Date Ashlee Meza MD [address] [place] [address] PCP - General Family Medicine 03/28/20 08/17/24 Morgan Curran MD [address] [place] [id number] PCP - General Internal Medicine 08/18/24 documented as of this encounter
--- OUTSIDE RECORDS SUMMARY | 2024-09-02 08:43 | XMS_ITS | Encounter Summary ---
Author Organization [employer] [facility] Address [address] [facility] [address] [place] [address] Care Team Providers Care Green Material Value Added Assessor Name Role Phone Ashlee Meza MD Primary Care Provider Morgan Curran MD Primary Care Prov ider Reason for Visit * Reason Onset Date Comments Results 09/14/2022 Encounter Details Date Type Department Care Team ([facility] st Contact Info) Description 09/14/2022 Telephone [facility] MEDICINE [address] [place] [address] Ashlee Meza MD [address] [place] [address] Results Social History Tobacco Use Types Packs/Day Years Used Date Smoking Tobacco: Never Passive Smoke Exposure: Never Smokeless Tobacco: Never Alcohol Use Standard Drinks/Week Comments Never 0 (1 standard drink = 0.6 oz pur e alcohol) Alcohol Answer Date Recorded Frequency of Alcohol Consumption Not on file 05/25/2024 Average Number of Drinks Not on file 024 Frequency of Binge Drinking Not on file 04/29 Score 0 05/25/2024 Depression Answer Date Recorded Patient Health Questionnaire-9 Score 8 05/25/2024 Patient Health Questionnaire-9 Score 8 05/25/2024 Last PHQ-9: Questionnaire Data Not on file 1 Housing Stability Answer Date Recorded What is your housing situation today? I have howard paez 05/13/[address] you li ve. Do you have problems with any of the following? None of the above 05/13/2023 Food Insecurity Answer Date Recorded Within the past 12 months, y ou worried that your food would run out before you got money to buy more: Never True 2023 Within the past 12 months,th e food you bought just didn't last and you didn't have enough money to get more: Sometimes True 05/25/2024 Transportation Answer Date Recorded In the past 12 months, has l ack of transportation kept you from medical appts, meetings, work or from getting things needed for daily living? No 09/09/2023 Utilities Answer Date Recorded In the past 12 months, has t he electric, gas, oil or water company threatened to shut off services in your home? No 05/13/2023 Depression Answer Date Recorded Patient Health Questionnaire-2 Score 5 05/25/2024 Internet Access Answer Date Recorded Internet Access Q1 Yes 05/25/2024 Internet Access Q2 Not on file 05/25/2024 Comments Unknown Sex and Gender Information Value [...] suspected to have Coronavirus/COVID-19? No / Unsure 01/07/2023 10:44 AM EDT documented as of this encounter Miscellaneous Notes * Telephone Encounter - Wong Caro - 09/14/2022 8:17 AM EST Tc from pt requesting lab results. Please contact at [phone] Yakut documented in this encounter Plan of Treatment Not on file documented as of this encounter Visit Diagnoses Not on filedocumented in this encounter Care Teams Green Material Value Added Assessor Relationship Specialty Start Date End Date Ashlee Meza MD [address] [place] [id number] PCP - General Family Medicine 03/28/20 08/17/24 Morgan Curran MD [address] [place] [id number] PCP - General Internal Medicine 08/18/24 documented as of this encounter
--- OUTSIDE RECORDS SUMMARY | 2024-09-02 08:43 | XMS_ITS | Encounter Summary ---
Author Organization [employer] [facility] Address [address] [facility] 7t [place] [address] Care Team Providers Care Rotary Shear Operator Name Role Phone Ashlee Meza MD Primary Care Provider Morgan Curran MD Primary Care Prov ider Reason for Visit * Reason Comments Med Refill Encounter Details Date Type Department Care Team ([facility] Contact Info) Description 08/05/2023 Refill [facility] [address] [place] [address] Ashlee Meza MD [address] [place] [address] Social History Tobacco Use Types Packs/Day Years Used Date Smoking Tobacco: Never Passive Smoke Exposure: Never Smokeless Tobacco: Never Alcohol Use Standard Drinks/Week Comments Never 0 (1 standard drink = 0.6 oz pur e alcohol) Depression Answer Date Recorded Patient Health Questionnaire-9 Score 6 04/22/2023 Housing Stability Answer Date Recorded What is [...] got money to buy more: Never True 05/13/2023 Within the past 12 months,th e food you bought just didn't last and you didn't have enough money to get more: Never True Transportation Answer Date Recorded In the past 12 months, has l ack of transportation kept you from medical appts, meetings, work or from getting things needed for daily living? I am not sure;No 05/13/2023 Utilities Answer Date Recorded In the past 12 months, has t he electric, gas, oil or water company threatened to shut off services in your home? No 05/13/2023 Depression Answer Date Recorded Patient Health Questionnaire-2 Score 1 04/22/2023 Comments Unknown Sex and Gender Information Value Date Recorded Sex Assigned at Female 05/28/2022 10:18 AM EDT Legal Sex Female 10:18 AM EDT Gender Identity Female 05/28/2022 10:18 AM EDT Sexual Orientation Choose not to disclose 2021 10:18 AM EDT documented as of this encounter Plan of Treatment Not on file documented as of this encounter Visit Diagnoses Not on filedocumented in this encounter Additional Health Concerns Assessment Noted Time PHQ-9 Depression Total Score: 6 04/22/20 23 9:18 AM EDT documented as of this encounter Care Teams Rotary Shear Operator Relationship Specialty Start Date End Date Ashlee Meza MD [address] [place] [phone] PCP - General Family Medicine 03/28/20 08/17/24 Morgan Curran MD [address] [place] [phone] PCP - General Internal Medicine 08/18/24 documented as of this encounter
--- OUTSIDE RECORDS SUMMARY | 2024-09-02 08:43 | XMS_ITS | Encounter Summary ---
Author Organization [employer] [facility] Address [address] [facility] 7t [place] [address] Care Team Providers Care Manager Float Name Role Phone Ashlee Meza MD Primary Care Provider [phone] Encounter Details Date Type Department Care Team (Latest Contact Info) Description 08/12/2024 Travel Social History Tobacco Use Types Packs/Day Years [...] Assessment Noted Time PHQ-9 Depression Total Score: 8 05/25/20 24 8:54 AM EDT documented as of this encounter Care Teams Manager Float Relationship Specialty Start Date End Date Ashlee Meza MD [address] [place] [phone] PCP - General Family Medicine 03/28/20 08/17/24 documented as of this encounter
--- OUTSIDE RECORDS SUMMARY | 2024-09-02 08:43 | XMS_ITS | Encounter Summary ---
Author Organization [employer] [facility] Address [address] [facility] 7t [place] [address] Care Team Providers Care Ethylene Plant Operator Name Role Phone Ashlee Meza MD Primary Care Provider [phone] Morgan Curran MD Primary Care Prov ider Encounter Details Date Type Department Care Team ([facility] st Contact Info) Description 09/14/2022 Orders Only [facility] [address] [place] [address] Adriana Brock MD [address] [place] [address] Hypothyroidism, unspecified type (Primary Dx) Social History Tobacco Use Types [...] on file documented as of this encounter Procedures Procedure Name Priority Date/Time Associated Diagnosis Comments TSH W/REFLEX TO FT4 Routine 2022 8 :28 AM EDT Hypothyroidism, unspecified type HEPATITIS C ANTIBODY Routine 10/03/2022 6:48 AM EST Hypothyroidism, unspecified type HIV ANTIBODY/ANTIGEN ([place] D[facility]) Routine 10/03/2022 6:48 AM EST Hypothyroidism, unspecified type CREATININE, SERUM Routine 10/03/2022 6:4 8 AM EST Hypothyroidism, unspecified type GLUCOSE, RANDOM Routine 10/03/2022 6:48 AM EST Hypothyroidism, unspecified type CBC WITH AUTO DIFFERENTIAL Routine 10/03/2022 6:48 AM EST Hypothyroidism, unspecified type HEPATITIS B CORE ANTIBODY (IGM) Routine 10/03/2022 6:48 AM EST Hypothyroidism, unspecified type HEPATITIS DELTA ANTIBODY TOTAL Routine 10/03/2022 6:48 AM EST Hypothyroidism, unspecified type HEPATITIS B VIRUS DNA, QN, REAL TIME PCR Routine 10/03/2022 6:48 AM EST Hypothyroidism, unspecified type HEPATITIS B SURFACE ANTIBODY, QUALITATIVE Routine 10/03/2022 6:48 AM EST Hypothyroidism, unspecified type HEPATITIS B SURFACE ANTIGEN W/REFL CONFIRM Routine 10/03/2022 6:48 AM EST Hypothyroidism, unspecified type ALT Routine 10/03/2022 6:48 AM EST Hypothyroidism, unspecified type AST Routine 10/03/2022 6:48 AM EST Hypothyroidism, unspecified type BILIRUBIN, TOTAL Routine 10/03/2022 6:48 AM EST Hypothyroidism, unspecified type ALBUMIN Routine 10/03/2022 6:48 AM EST Hypothyroidism, unspecified type documented in this encounter Results * TSH W/Reflex to FT4 (2022 8:28 AM EDT) TSH reflex Free T4 1.16 0.32 - 4.0 uIU/mL [facility] 2022 8:28 AM EDT 2022 8:28 AM EDT [facility] External Provider LAB BLO OD ORDERABLES Final Result Performing Organization Address [facility] Co de Phone Number [facility] [address] [place] [phone] * Hepatitis??D Virus (HDV) Antibody, Total (10/03/2022 6:48 AM EST) Hepatitis D Antibody, Total NEGATIVE [facility] Comment:REFERENCE RANGE: NEG ATIVE INTERPRETIVE CRITERIA: NEGATIVE: Antibody not detected POSITIVE: Antibody detectedHDV infection occurs only in association withHBV infection. Detection of HDV total antibodymay indicate acute infection, chronic infection,or past infection with recovery. Measurement ofHDV IgM may help distinguish among these threeinfection categories; however, because HDV IgMmay persist in chronic infection, HDV RNA PCRtesting can also be considered as an aid in thediagnosis and staging of infection.This test was developed and its analyticalperformance characteristics have been determinedby [employer]. It has not been cleared orapproved by FDA. This assay has been validatedpursuant to the CLIA regulations and is used forclinical purposes.THIS TEST WAS PERFORMED AT:[employer]/[id number] [place] [address]PDTYQKARLEY OROZCO MD,PHD,LYNN 10/03/2022 6:48 AM EST 10/03/2022 6:48 AM EST [facility] External Provider LAB BLO OD ORDERABLES Final Result Performing Organization Address [facility]/ZIP Co de Phone Number [facility] [address] [place] [phone] * Hepatitis B Core??Antibody (IgM) (10/03/2022 6:48 AM EST) Pathologist [facility] Hepatitis B Core Antibody IgM NON-REACTI VE NON-REACT KIM [facility] Comment:THIS TEST WAS PERFOR MED AT:[employer] [address] [id number] ALBERTS MD 10/03/2022 6:48 AM EST 10/03/2022 6:48 AM EST [facility] External Provider LAB BLO OD ORDERABLES Final Result Performing Organization Address [facility] Co de Phone Number [facility] [address] [place] [address] [phone] * (ABNORMAL) Hepatitis B Virus DNA, Quantitative, Real-Time PCR (10/03/2022 6:48 AM EST) Pathologist [facility] Hepatitis B Viral DNA Qn - cp 2.83(A) NOT DETECTED Log IU/mL [facility] Comment:This test was perfor med using [employer] Polymerase ChainReaction.Reportable Range: 10 IU/mL to 1,000,000,000 IU/mL.(1.00 Log IU/mL to 9.00 Log IU/mL).The analytical performance characteristics of this assayhave been determined by [employer]. Themodifications have not been cleared or approved by theA. This assay has been validated pursuant to the CLIAregulations and is used for clinical purposes.THIS TEST WAS PERFORMED AT:[employer] [address] [id number] ALBERTS MD Hepatitis B Viral DNA Qn-IU/mL 683(A) NOT DETECTED IU/mL [facility] 10/03/2022 6:48 AM EST 10/03/2022 6:48 AM EST [facility] External Provider LAB BLO OD ORDERABLES Final Result Performing Organization Address City/[facility]/ZIP Co de Phone Number [facility] [address] [place] [address] [phone] * (ABNORMAL) Hepatitis B Surface Antigen with Reflex Confirmation (10/03/2022 6:48 AM EST) Hepatitis B Surface Ag Confirmed Pos(A) Negative [facility] Comment:RESULTS OF CALLED TO AND READ BACK BY AT 1126 BY WENCESLAO.Results of HBSAG called to and read back byon 10/05/22 at 1134 by WENCESLAO. 10/03/2022 6:48 AM EST 10/03/2022 6:48 AM EST [facility] External Provider LAB BLO OD ORDERABLES Final Result Performing Organization Address [facility] de Phone Number [facility] [address] [place] [address] [phone] * HIV Ab/Ag ([facility]) (10/03/2022 6:48 AM EST) HIV AB/AG Nonreactive Nonreactive [facility] Comment:HIV-1 p24 Ag and/or HIV-1/HIV-2 Ab not detected.A test result that is nonreactive does not exclude thepossibility of exposure to or infection with HIV-1 and/orHIV-2. Nonreactive results in this assay for individualswith prior exposure to HIV-1 and/or HIV-2 may be due toantigen and antibody levels that are below the limit ofdetection of this assay.The [employer] Manager HIV Ag/Ab Combo assay result andsupplemental assay results should be interpreted inconjunction with the patient's clinical presentation,history and other laboratory results. If the results areinconsistent with clinical evidence, additional testing issuggested to confirm the result. 10/03/2022 6:48 AM EST 10/03/2022 6:48 AM EST [facility] External Provider LAB BLO OD ORDERABLES Final Result Performing Organization Address [facility] de Phone Number [facility] [address] [place] [phone] * Hepatitis C Ab (10/03/2022 6:48 AM EST) Hepatitis C Antibody Nonreactive Nonreactive [facility] Comment:Antibodies to HCV no t detected; does not exclude early acuteHCV infection. 10/03/2022 6:48 AM EST 10/03/2022 6:48 AM EST [facility] External Provider LAB BLO OD ORDERABLES Final Result Performing Organization Address [facility] Number [facility] [address] [place] [phone] * Hepatitis B Surface Antibody, Qualitative (10/03/2022 6:48 AM EST) ~Hepatitis B Surface Antibody NONREACTIVE Nonreactive [facility] Comment:Nonreactive: < 8.00 mIU/mL 10/03/2022 6:48 AM EST 10/03/2022 6:48 AM EST [facility] External Provider LAB BLO OD ORDERABLES Final Result Performing Organization Address [facility] Phone Number [facility] [address] [place] [phone] * Albumin (10/03/2022 6:48 AM EST) Albumin Level 4.1 3.5 - 5.0 g/dL [facility] 10/03/2022 6:48 AM EST 10/03/2022 6:48 AM EST [facility] External Provider LAB BLO OD ORDERABLES Final Result Performing Organization Address [facility] de Phone Number [facility] [address] [place] [phone] * ALT (10/03/2022 6:48 AM EST) Alanine Aminotransferase 24 0 - 31 U/L [facility] 10/03/2022 6:48 AM EST 10/03/2022 6:48 AM EST [facility] External Provider LAB BLO OD ORDERABLES Final Result Performing Organization Address City/[facility]/ZIP Co de Phone Number [facility] [address] [place] [phone] * AST (10/03/2022 6:48 AM EST) Aspartate Amino Transferase 22 5 - 31 U/L [facility] 10/03/2022 6:48 AM EST 10/03/2022 6:48 AM EST [facility] External Provider LAB BLO OD ORDERABLES Final Result Performing Organization Address [facility] Co de Phone Number [facility] [address] [place] [phone] * Bilirubin, Total (10/03/2022 6:48 AM EST) Bilirubin, Total 0.3 0.0 - 1.0 mg/dL [facility] 10/03/2022 6:48 AM EST 10/03/2022 6:48 AM EST [facility] External Provider LAB BLO OD ORDERABLES Final Result Performing Organization Address [facility] Co de Phone Number [facility] [address] [place] [phone] * Glucose, Random (10/03/2022 6:48 AM EST) Glucose 113 60 - 115 mg/dL [facility] 10/03/2022 6:48 AM EST 10/03/2022 6:48 AM EST [facility] External Provider LAB BLO OD ORDERABLES Final Result Performing Organization Address [facility] de Phone Number [facility] [address] [place] [phone] * Creatinine, Serum (10/03/2022 6:48 AM EST) Creatinine, Serum 0.86 0.5 - 1.4 mg/dL [facility] Estimated Glomerular Filt Rate >60 [facility] Comment:NOTE: For -Am erican individuals, multiply the result by 1.210.Chronic Kidney Disease: Estimated GFR < 60 mL/min/1.11u9Invhby Kidney Disease: Estimated GFR < 15 mL/min/1.73m2 10/03/2022 6:48 AM EST 10/03/2022 6:48 AM EST [facility] External Provider LAB BLO OD ORDERABLES Final Result Performing Organization Address [facility] de Phone Number [facility] [address] [place] [phone] * (ABNORMAL) CBC auto differential (10/03/2022 6:48 AM EST) White Blood Count 4.7(L) 4.8 - 10.8 X10*3/uL [facility] Red Blood Count 4.22 4.20 - 5.50 X10*6/uL [facility] Hemoglobin 12.8 12.0 - 16.0 g/dl [facility] Hematocrit 38.2 37.0 - 47.0 % [facility] Mean Corpuscular Volume 90.5 80.0 - 98.0 fL [facility] Mean Corpuscular Hemoglobin 30.3 27.0 - 33.0 pg [facility] Mean Corpuscular HGB Conc 33.5 31.0 - 35.0 g/dl [facility] Red Cell Distribution Width 12.5 11.0 - 16.0 % [facility] Platelet Count 249 160 - 400 X10*3/uL [facility] Mean Platelet Volume 10.4 9.4 - 12.3 fL [facility] Neutrophils Percent Auto 50.8 45 - 73 % [facility] Imm Gran Pct Auto 0.4 0.0 - 0.4 % [facility] Lymphocytes Percent Auto 38.8 20 - 40 % [facility] Monocytes Percent Auto 6.0 2 - 11 % [facility] Eosinophils Percent Auto 3.4 0 - 4 % [facility] Basophils Percent Auto 0.6 0 - 2 % [facility] NRBC Pct Auto 0.0 0.0 - 0.2 /100WBC [facility] Neutrophils Absolute Auto 2.4 2.0 - 8.3 x10*3/uL [facility] Imm Gran Abs Auto 0.02 0.00 - 0.03 X10*3/uL [facility] Lymphocytes Absolute Auto 1.8 1.2 - 4.9 X10*3/uL [facility] Monocytes Absolute Auto 0.3 0.1 - 1.2 X10*3/uL [facility] Eosinophils Absolute Auto 0.2 0.0 - 0.4 X10*3/uL [facility] Basophils Absolute Auto 0.0 0.0 - 0.2 X10*3/uL [facility] NRBC Abs Auto 0.000 0.0 - 0.012 X10*3/uL [facility] 10/03/2022 6:48 AM EST 10/03/2022 6:48 AM EST us [facility] External Provider LAB BLO OD ORDERABLES Final Result [facility] [address] [place] [phone] documented in this encounter Visit Diagnoses Diagnosis Hypothyroidism, unspecified type- Primary documented in this encounter Care Teams Ethylene Plant Operator Relationship Specialty Start Date End Date Ashlee Meza MD [address] [place] [phone] PCP - General Family Medicine 03/28/20 08/17/24 Morgan Curran MD [address] [place] [phone] PCP - General Internal Medicine 08/18/24 documented as of this encounter
--- OUTSIDE RECORDS SUMMARY | 2024-09-02 08:43 | XMS_ITS | Encounter Summary ---
Author Organization [email or web address] [facility] Address [address] [facility] 7t [place] [address] Care Team Providers Care Fruit Vendor Name Role Phone Ashlee Meza MD Primary Care Provider [phone] Morgan Curran MD Primary Care Prov ider Reason for Visit * Reason Comments Med Refill Encounter Details Date Type Department Care Team ([facility] Contact Info) Description 05/21/2023 Refill [facility] & P[facility]S [address] [place] [address] Ashlee Meza MD [address] [place] [address] Social History Tobacco Use Types Packs/Day Years Used Date Smoking Tobacco: Never Passive Smoke Exposure: Never Smokeless Tobacco: Never Alcohol Use Standard Drinks/Week Comments Never 0 (1 standard drink = 0.6 oz pur e alcohol) Depression Answer Date Recorded Patient Health Questionnaire-9 Score 6 04/22/2023 Housing Stability Answer Date Recorded What is your housing situation today? I have howard paze 05/13/[address] you li [...] documented as of this encounter Care Teams Fruit Vendor Relationship Specialty Start Date End Date Ashlee Meza MD [address] [place] [phone] PCP - General Family Medicine 03/28/20 08/17/24 Morgan Curran MD [address] [place] [phone] PCP - General Internal Medicine 08/18/24 documented as of this encounter
--- OUTSIDE RECORDS SUMMARY | 2024-09-02 08:43 | XMS_ITS | Encounter Summary ---
Author Organization [employer] [facility] Address [address] [facility] 7t [place] [address] Care Team Providers Care Presser First Name Role Phone Ashlee Meza MD Primary Care Provider [phone] Morgan Curran MD Primary Care Prov ider Reason for Visit * Reason Onset Date Comments Nurse Triage 08/12/2024 Encounter Details Date Type Department Care Team ([facility] st Contact Info) Description 08/12/2024 Telephone [facility] MEDICINE [address] [place] [address] Ashlee Meza MD [address] [place] [address] Nurse Triage Social History Tobacco Use Types Packs/Day Years [...] the past 12 months, has t he [employer], gas, oil or water [employer] threatened to shut off services in your [...] encounter Miscellaneous Notes * Telephone Encounter - Yuli Carcamo RN - 08/12/2024 3:04 PM EST Triage call with [facility] [place] [id number]. Pt reports can speak Portuguese. Triage continued in georgian at this time. Pt reports frequency , incontinence and chills and some abdominal pain for the last 2 days. Pt denies symptoms of burning with urination, odor, flank pain. Pt reports incontinence of urine which is becoming worse and unable to get to the bathroom in time. ASK apt with DR. Maradiaga 08/13/24 @ 415pm. Pt agrees with disposition. Insurance is verified as active prior to booking. Protocol Used: Urinary Symptoms (Adult) Protocol-Based Disposition: See in Office or Video Visit Today Video visit offer not recorded Positive Triage Questions: * Urinating more frequently than usual (i.e., frequency) OR new-onset of the feeling of an urgent need to urinate (i.e., urgency) * Can't control passage of urine (i.e., urinary incontinence) and new-onset (< 2 weeks) or getting worse * All higher-acuity triage questions were negative Care Advice Discussed: * Reassurance and Education - Urinary Incontinence * Reasons To Call Back - Fever occurs - Pain or burning with urination - You become worse * Telephone Encounter - Guillermo Snownandez - 08/12/2024 2:06 PM EST Symptoms: Urine Symptoms, Abdominal Pain - Female - Not Outcome: Schedule an urgent appointment (within 4 hours) or talk to a nurse or provider soon Reason: Started within the past 3 days The caller accepted this outcome. Contact pt [phone] documented in this encounter Plan of Treatment Not on file documented as of this encounter Visit Diagnoses Not on filedocumented in this encounter Additional Health Concerns Assessment Noted Time PHQ-9 Depression Total Score: 8 05/25/20 24 8:54 AM EDT documented as of this encounter Care Teams Presser First Relationship Specialty Start Date End Date Ashlee Meza MD [address] [place] [phone] PCP - General Family Medicine 03/28/20 08/17/24 Morgan Curran MD [address] [place] [phone] PCP - General Internal Medicine 08/18/24 documented as of this encounter
--- OUTSIDE RECORDS SUMMARY | 2024-09-02 08:43 | XMS_ITS | Encounter Summary ---
Author Organization [facility] Address [address] [place] [address] 7t [place] [address] Care Team Providers Care Senior Staff Consultant Name Role Phone Ashlee Meza MD Primary Care Provider [phone] Reason for Visit * Reason Onset Date Comments Change PCP 08/12/2024 Encounter Details Date Type Department Care Team ([facility] Contact Info) Description 08/12/[address] [facility] MED & PEDS [address] [place], [place] [phone] Ashlee Meza MD [address] [place] [address] Change PCP Social History Tobacco Use Types Packs/Day Years [...] encounter Miscellaneous Notes * Telephone Encounter - Paige Danielson RN - 08/13/2024 7:50 AM EST TC to pt- TP form filled out and put up for provider (s) signatures. Once approved pt will be contacted for appt. She verbalized understanding and agrees to plan. * Telephone Encounter - Jhony Bee - 08/12/2024 4:27 PM EST Pt would like to change PCP states she loved the care she received from current appointment on 08/12/24 w/ (Maradiaga). Pt states she shouldn't feel tension when walking into an office as she does when she sees PCP. documented in this encounter Plan of Treatment Not on file documented as of this encounter Visit Diagnoses Not on filedocumented in this encounter Additional Health Concerns Assessment Noted Time PHQ-9 Depression Total Score: 8 05/25/20 24 8:54 AM EDT documented as of this encounter Care Teams Senior Staff Consultant Relationship Specialty Start Date End Date Ashlee Meza MD [address] [place] [address] PCP - General Family Medicine 03/28/20 08/17/24 documented as of this encounter
--- OUTSIDE RECORDS SUMMARY | 2024-09-02 08:43 | XMS_ITS | Encounter Summary ---
Author Organization [employer] Address [address] [place] [address] Care Team Providers Care Dumping Machine Operator Name Role Phone Morgan Curran MD Primary Care Prov ider Reason for Visit * Reason Onset Date Comments Med Refill 08/28/2024 Encounter Details Date Type Department Care Team (Late st Contact Info) Description 08/28/2024 Refill [facility] MED & PEDS [address] [place] [address] Morgan Curran MD [address] [place] [address] Hypothyroidism, unspecified type Social History Tobacco Use Types Packs/Day Years [...] as of this encounter Visit Diagnoses Diagnosis Hypothyroidism, unspecified type documented in this encounter Additional Health Concerns Assessment Noted Time PHQ-9 Depression Total Score: 8 05/25/20 24 8:54 AM EDT documented as of this encounter Care Teams Dumping Machine Operator Relationship Specialty Start Date End Date Morgan Curran MD [address] [place] [id number] PCP - General Internal Medicine 08/18/24 documented as of this encounter
--- OUTSIDE RECORDS SUMMARY | 2024-09-02 08:43 | XMS_ITS | Encounter Summary ---
Author Organization [employer] [facility] Address 75 [facility] 7t [place] [address] Care Team Providers Care Press Officer Name Role Phone Ashlee Meza MD Primary Care Provider [phone] Morgan Curran MD Primary Care Prov ider Reason for Visit * Reason Comments Med Refill Encounter Details Date Type Department Care Team ([facility] Contact Info) Description 03/12/2024 Refill [facility] MED & PEDS [address] [place] [address] Ashlee Meza MD [address] [place] [address] Social History Tobacco Use Types Packs/Day Years [...] before you got money to buy more: Sometimes True 2023 Within the past 12 months,th e food you bought just didn't last and you didn't have enough money to get more: Sometimes True 09/09/2023 Transportation Answer Date Recorded In the past [...] documented as of this encounter Care Teams Press Officer Relationship Specialty Start Date End Date Ashlee Meza MD [address] [place] [id number] PCP - General Family Medicine 03/28/20 08/17/24 Morgan Curran MD [address] [place] [id number] PCP - General Internal Medicine 08/18/24 documented as of this encounter
--- OUTSIDE RECORDS SUMMARY | 2024-09-02 08:43 | XMS_ITS | Encounter Summary ---
Author Organization [employer] Address 75 [facility] 7 [place] [address] Care Team Providers Care Nuclear Test Technician Name Role Phone Ashlee Meza MD Primary Care Provider [phone] Encounter Details Date Type Department Care Team ([facility] st Contact Info) Description 08/12/2024 4:15 PM EST Office Visit [facility] CH[facility] MED & PEDS [address] [place], [place] [phone] Morgan Curran MD [address] [place] [address] Overweight (Primary Dx); Frequency of urination; Epigastric pain Social History Tobacco Use Types Packs/Day Years [...] AM EDT documented as of this encounter Last Filed Vital Signs Vital Sign Reading Time Taken Comments Blood Pressure 130/78 08/12/2024 3:49 PM EST Pulse 84 08/12/2024 3:49 PM EST Temperature 36 ??C (96.8 ??F) 08/12/2024 3:49 PM EST Respiratory Rate 20 08/12/2024 3:49 PM EST Oxygen Saturation 98% 08/12/2024 3:49 PM EST Inhaled Oxygen Concentration - - Weight 67.6 kg (149 lb) 08/12/2024 3:49 PM EST Height 152 cm (4' 11.84 ) 08/12/2024 3:49 PM EST Body Mass Index 29.26 08/12/2024 3:49 PM EST documented in this encounter Progress Notes * Morgan Huffman MD - 08/12/2024 4:15 PM EST Subjective Patient ID: Ashley Olivares is a 53 y.o. female who presents for No chief complaint on file.. Urinary Frequency This is a new problem. The current episode started yesterday. There has been no fever. Associated symptoms include frequency. Pertinent negatives include no chills, discharge, hematuria or urgency. Review of Systems Constitutional: Negative for chills. Genitourinary: Positive for frequency. Negative for hematuria and urgency. Objective Physical Exam Constitutional: Appearance: Normal appearance. Cardiovascular: Rate and Rhythm: Normal rate and regular rhythm. Pulmonary: Effort: No respiratory distress. Breath sounds: Normal breath sounds. No stridor. No wheezing or rhonchi. Neurological: General: No focal deficit present. Mental Status: She is alert and oriented to person, place, and time. Mental status is at baseline. Psychiatric: Mood and Affect: Mood normal. Behavior: Behavior normal. Assessment/Plan Problem List Items Addressed This Visit Overweight - Primary Relevant Orders Hemoglobin A1c Lipid Panel, Standard Other Visit Diagnoses Frequency of urination Urine test came negative, told to remain well hydrated, avoid irritants, avoid coffee, follow up asneeded Relevant Orders POCT urinalysis dipstick manually resulted Epigastric pain Will send rx for nexium, lifestyle modifications discussed documented in this encounter Plan of Treatment Not on file documented as of this encounter Procedures Procedure Name Priority Date/Time Associated Diagnosis Comments POCT URINALYSIS DIPSTICK Routine 08/13/2024 10:27 AM EST Frequency of urination HEMOGLOBIN A1C Routine 08/13/2024 8:06 AM EST Overweight LIPID PANEL, STANDARD Routine 08/13/2024 8:06 AM EST Overweight documented in this encounter Results * POCT urinalysis dipstick manually resulted (08/13/2024 10:27 AM EST) Color, UA Yellow Clarity, UA Clear Glucose, UA Negative Bilirubin, UA Negative Ketones, UA Negative Spec Grav, UA 1.010 Blood, UA Negative Negative, None Detected pH, UA 6.5 Protein, UA Negative Urobilinogen, UA 0.2 Leukocytes, UA Negative Negative, Rare, Trace Nitrite, UA Negative Negative, None Detected Appearance, UA clear QC Media Lot # Comment:[id number] Lot# Expiration Date Comment:10/26/2024 Urine 08/13/2024 10:2 7 AM EST Morgan Huffman MD POINT OF CARE TEST ENTER/EDIT ORDERABLES Final Result * (ABNORMAL) Lipid Panel, Standard (08/13/2024 8:06 AM EST) Triglycerides 109 <150 mg/dL [facility] Comment:Desirable Triglyceri de: less than 150 mg/dLBorderline High Triglyceride 150-199 mg/dLHigh Triglyceride: 200-499 mg/dLVery High Triglyceride: greater than or equal to 5OO mg/dL Cholesterol 193 <200 mg/dL [facility] Comment:Desirable Cholestero l: less than 200 mg/dLBorderline High Cholesterol: 200-239 mg/dLHigh Cholesterol: greater than 239 mg/dL LDL Cholesterol Calculated 123(H) <100 mg/dL [facility] Comment:Desirable LDL: less than 100 mg/dLNear Optimal/Above Optimal LDL: 110- 129 mg/dLBorderline High LDL: 130-159 mg/dLHigh LDL: 160-189 mg/dLVery High LDL: greater than or equal to 190 mg/dL HDL Cholesterol 49 >40 mg/dL [facility] Comment:Desirable HDL: great er than 40 mg/dL Note: This HDL assay may give artificially low results in patients with liver disease. Blood Venous blood specimen / Unknown 08/13/2024 8:06 AM EST 08/13/2024 8:06 AM EST us Morgan Huffman MD LAB BLOOD ORDERABL ES Final Result [facility] [address] [place] [phone] [phone] * Hemoglobin A1c (08/13/2024 8:06 AM EST) Hemoglobin A1c 5.8 <6.0 % [facility] Comment:Hemoglobin A1C Refer ence Range Adults: 4.8 - 6.0 % Non diabetic: < 6.0 % Goal: < 7.0 %Additional Action Suggested: > 8.0 %Note: Hemoglobin A1c results are invalid for patients with abnormal amounts of HbF. Blood transfusions may impact the HbA1c concentration in the patient sample. Estimated Average Glucose 120 mg/dL [facility] Comment:eAG = Estimated ave rage glucose which is %A1C expressed asaverage glucose, using the formula of the D6P-[id number] Glucose study (ADAG), Diabetes Care, Vol.31,#8,2007 Blood Venous blood specimen / Unknown 08/13/2024 8:06 AM EST 08/13/2024 8:06 AM EST us Morgan Huffman MD LAB BLOOD ORDERABL ES Final Result Performing Organization Address City/State/[facility] Co de Phone Number [facility] [address] [place] [address] [phone] documented in this encounter Visit Diagnoses Diagnosis Overweight- Primary Frequency of urination Urinary frequency Epigastric pain Abdominal pain, epigastric documented in this encounter Additional Health Concerns Assessment Noted Time PHQ-9 Depression Total Score: 8 05/25/20 24 8:54 AM EDT documented as of this encounter Care Teams Nuclear Test Technician Relationship Specialty Start Date End Date Ashlee Meza MD [address] [place] [address] PCP - General Family Medicine 03/28/20 08/17/24 documented as of this encounter
--- OUTSIDE RECORDS SUMMARY | 2024-09-02 08:43 | XMS_ITS | Encounter Summary ---
Author Organization [employer] [facility] Address [address] [place] [address] 7t [place] [address] Care Team Providers Care Director Of Agriculture Name Role Phone Ashlee Meza MD Primary Care Provider [phone] Morgan Curran MD Primary Care Prov ider Reason for Visit * Reason Onset Date Comments triage 12/04/2022 Encounter Details Date Type Department Care Team ([facility] st Contact Info) Description 12/04/2022 Telephone [facility] MED & PEDS [address] [place], [place] [phone] Ashlee Meza MD [address] [place], [place] [phone] triage Social History Tobacco Use Types Packs/Day Years Used Date Smoking Tobacco: Never Passive Smoke Exposure: Never Smokeless Tobacco: Never Alcohol Use Standard Drinks/Week Comments Never 0 (1 standard drink = 0.6 oz pur e alcohol) PHQ-2 Answer Date Recorded Patient Health Questionnaire-2 Score 4 10/30/2022 Comments Unknown Sex and Gender Information Value Date Recorded Sex Assigned at Female 05/28/2022 10:18 AM EDT Legal Sex Female 10:18 AM EDT Gender Identity Female 05/28/2022 10:18 AM EDT Sexual Orientation Choose not to disclose 2021 10:18 AM EDT documented as of this encounter Miscellaneous Notes * Telephone Encounter - Yuli Carcamo RN - 12/04/2022 11:13 AM EDT Triage call with [facility] Business Manager [place] [id number] Pt reports for two days now, itchy throat, dry cough , nasal congestion and runny nose with clear drainage. Pt reports cough is more at night, neg for fever or difficulty breathing. Pt is taking loratidine without relief. Pt is also requesting labs to check TSH level. Pt is informed that missed last two apts which would have addressed this. Pt understands. Apt made with DR. Maradiaga for 12/06 @ 1115am to be seen for these cold symptoms and to request labs. Pt agrees with this disposition and plan. Pt had review of home care. Advised to continue taking loratadine as prescribed and increase warm liquids to 6-8 glasses daily , de cafe tea, chicken broth, use cough drops and steam from shower . Pt agrees. Protocol Used: Nasal Allergies (Hay Fever) (Adult) Protocol-Based Disposition: See in Office or Video Visit Today or Tomorrow Override (Final) Disposition: See in Office or Video Visit within 3 Days Override Reason: Other Video visit not offered Positive Triage Questions: * Moderate-Severe nasal allergy symptoms (i.e., interfere with sleep, school, or work) and taking antihistamines > 2 days * Patient wants to be seen * All higher-acuity triage questions were negative Care Advice Discussed: * Reassurance and Education - Hay Fever * Wash Pollen off Body Daily * Avoiding Pollen * Antihistamine Medicines for Hay Fever * Nasal Decongestants for a Very Stuffy Nose * For Eye Allergies * Reasons To Call Back - Symptoms are not controlled in 2 days with continuous antihistamines - You become worse * Telephone Encounter - Isaura Torres - 12/04/2022 9:37 AM EDT Symptom: Cough Outcome: Schedule an appointment to be seen within 24 hours Reason: Caller denied all higher acuity questions The caller accepted this outcome documented in this encounter Plan of Treatment Not on file documented as of this encounter Visit Diagnoses Not on filedocumented in this encounter Additional Health Concerns Assessment Noted Time PHQ-9 Depression Total Score: 5 10/31/19 23 9:17 AM EDT documented as of this encounter Care Teams Director Of Agriculture Relationship Specialty Start Date End Date Ashlee Meza MD [address] [place] [id number] PCP - General Family Medicine 03/28/20 08/17/24 Morgan Curran MD [address] [place] [id number] PCP - General Internal Medicine 08/18/24 documented as of this encounter
--- OUTSIDE RECORDS SUMMARY | 2024-09-02 08:43 | XMS_ITS | Encounter Summary ---
Author Organization [employer] [facility] Address 75 [facility] 7t [place] [address] Care Team Providers Care Rental Sales Agent Name Role Phone Ashlee Meza MD Primary Care Provider [phone] Reason for Visit * Reason Onset Date Comments Results 06/02/2024 Encounter Details Date Type Department Care Team ([facility] st Contact Info) Description 06/02/2024 Telephone [facility] [address] [place] [address] Ashlee Meza MD [address] [place] [address] Results Social History Tobacco Use Types Packs/Day [...] encounter Miscellaneous Notes * Telephone Encounter - Ashlee Meza MD - 07/02/2024 11:00 AM EST Lab results within normal limits. * Telephone Encounter - Gregorio Everett RN - 06/02/2024 10:07 AM EST Patient requesting lab results from 05/25/24. Please review and advise nurse's of results and plan.Thanks. * Telephone Encounter - Wong Caro - 06/02/2024 8:28 AM EST Tc from pt requesting lab results. Please contact at [phone] Urdu documented in this encounter Plan of Treatment Not on file documented as of this encounter Visit Diagnoses Not on filedocumented in this encounter Additional Health Concerns Assessment Noted Time PHQ-9 Depression Total Score: 8 05/25/20 24 8:54 AM EDT documented as of this encounter Care Teams Rental Sales Agent Relationship Specialty Start Date End Date Ashlee Meza MD [address] [place] [address] PCP - General Family Medicine 03/28/20 08/17/24 documented as of this encounter
--- OUTSIDE RECORDS SUMMARY | 2024-09-02 08:43 | XMS_ITS | Clinical Summary ---
Author Organization [employer] Address [address] [place] [address] Care Team Providers Care Biometrics Analyst Name Role Phone Morgan Curran MD Primary Care Prov ider Allergies Active Allergy Reactions Criticality Noted Date Comments Amoxicillin 08/21/2013 Other reaction(s): Itching,SOB Aspirin Swelling 07/14/2012 Glutaral 08/04/2010 Other reaction(s): Avoid Sulfa, Dapsone, Nitrofu Ibuprofen 08/04/2010 Other reaction(s): difficulty breathing Medications PARoxetine (Paxil) 20 MG tabletIndication s:Anxiety Take 1 tablet (20 mg) by mouth in the morning. 90 tablet 1 3 Active topiramate (Topamax) 25 MG tablet TAKE ONE TABLET BY MOUTH EVERY TWELVE HOURS 180 tablet 1 3 Active Acetaminophen Extra Strength 500 MG tabletIndication s:Spasm of cervical paraspinous muscle TAKE ONE TABLET EVERY 6 HOURS NEEDED 50 tablet 3 4 Active amLODIPine (Norvasc) 5 MG tablet Take 1 tablet (5 mg) by mouth in the morning. 30 tablet 11 4 Active montelukast (Singulair) 10 MG tablet TAKE ONE TABLET EVERY EVENING FOR ALLERGY 90 tablet 2 4 Active simethicone (Mylicon) 125 MG chewable tablet CHEW ONE TABLET THREE OR FOUR TIMES DAILY DAILY NEEDED 4 Active loratadine (Claritin) 10 MG tablet TAKE ONE TABLET BY MOUTH EVERY DAY FOR ALLERGIES 90 tablet 1 4 Active albuterol (2.5 MG/3ML) 0.083% nebulizer solutionIndicati ons:Moderate persistent asthma, unspecified whether complicated INHALE ONE AMPULE USING A NEBULIZER FOUR TIMES DAILY NEEDED 90 mL 3 4 Active famotidine (Pepcid) 20 MG tablet TAKE ONE TABLET BY MOUTH AT BEDTIME 90 tablet 1 4 Active pantoprazole (ProtoNix) 40 MG EC tablet TAKE ONE TABLET BY MOUTH EVERY MORNING (STOMACH) 90 tablet 1 4 Active levothyroxine (Synthroid, Levoxyl) 50 MCG tablet TAKE ONE TABLET BY MOUTH EVERY MORNING BEFORE BREAKFAST 90 tablet 1 4 Active hydrOXYzine HCl (Atarax) 25 MG tabletIndication s:Mixed anxiety and depressive disorder TAKE ONE TABLET EVERY 8 HOURS NEEDED FOR ANXIETY 90 tablet 3 4 Active Arnuity Ellipta 100 MCG/ACT inhaler INHALE ONE PUFF EVERY MORNING, RINSE MOUTH AFTER USE 30 each 5 4 Active Blood Pressure kit 1 Units Once per day. 1 kit 4 Active levothyroxine (Synthroid, Levoxyl) 75 MCG tabletIndication s:Hypothyroidism , unspecified type TAKE ONE TABLET EVERY MORNING SATURDAY ,, SATURDAY, SATURDAY 48 tablet 1 4 Active albuterol 108 (90 Base) MCG/ACT inhalerIndicatio ns:Moderate persistent asthma, unspecified whether complicated INHALE TWO PUFFS EVERY 4 HOURS NEEDED FOR WHEEZING 18 g 4 4 Active mometasone (Nasonex) 50 MCG/ACT nasal spray Administer 2 sprays into each nostril Once per day. 17 g 2 5 Active clonazePAM (KlonoPIN) 1 MG tabletIndication s:Mixed anxiety and depressive disorder Take 1 tablet (1 mg) by mouth 2 times daily. 56 tablet 1 5 09/25/19 25 Active esomeprazole (NexIUM) [address] capsule Take 1 capsule (20 mg) by mouth before breakfast. Do not open capsule. 30 capsule 11 5 08/12/19 26 Active Active Problems Problem Noted Date Diagnosed Date A vague feeling of discomfort 05/25/2024 Assessment & Plan (05/25/2024 9:15 AM EDT): Non specific symptoms, will send labs, recommend inperson eval for EKG and orthostatic vitals. Also recommend episode diary to help better elucidate symptoms, frequency and signs. Will request MA to make appt for inperson eval when able. Bipolar affective disorder in remission 03/17/20 Assessment & Plan (03/17/2024 10:26 AM EDT): Discussed medications and refills as needed. Cervical cancer screening 03/17/2024 Assessment & Plan (03/17/2024 10:26 AM EDT): 53 y.o. here for cervical cancer screening. Will continue monitoring following ASCCP guidelines. White coat syndrome with hypertension 01/16/2024 Assessment & Plan (01/16/2024 11:12 PM EDT): The pts BP was elevated during the visit. She provided her personal BP kit and home BP los, which consistently show normal readings. This discrepancies suggests white coat hypertension. -No changes to the current management plan are necessary, as her BP is well-controlled outside the clinic environment -The pt's current medication list was reviewed and remains appropriate. Left toe thickening and loose 09/18/2023 Adenomyomatosis of gallbladder 09/18/2023 Assessment & Plan (09/18/2023 11:39 AM EST): I referred patient to general surgery for adenomyomatosis in her gallbladder on US. Steatosis of liver 08/27/2023 Polyuria 05/24/2023 Assessment & Plan (05/29/2023 3:05 PM EDT): Denies any dysuria or burning sensation, reports she is concern of amount of urine. At this moment will send for testing and recommended in person f/up Alopecia 03/01/2023 Assessment & Plan (03/01/2023 9:45 AM EDT): Will send labs. Dizziness 03/01/2023 Assessment & Plan (03/01/2023 9:44 AM EDT): Patient with noted dizziness episodes after taking blood pressure medication. Advised to pause medication for 2 weeks and continue monitoring BP and symptoms. Will follow up in 2 weeks with nurse to reassess and adjust regimen as needed. Hypertension 01/24/2023 Assessment & Plan (09/18/2023 11:38 AM EST): Uncontrolled (During visit): During triage patients blood pressure reading where elevated. I re-took her blood pressure and the reading was 152/88 which is still high. Patient reported at home her blood pressure has been stable. I have advised her to log her blood pressure reading daily and bring them into her next F/U. At that time I will reassess her treatment plan and increase medication if needed. Future Appointments Date Time Provider Department Center 09/23/2023 9:45 AM KAMARI Hogan MEDICINE [facility] 09/23/2023 1:00 PM Nargis Miner PharmD [facility] 10/14/2023 10:00 AM Ashlee Meza MD [facility] Assessment & Plan (03/15/2023 9:20 AM EDT): Controlled. Continue current regimen. Assessment & Plan (01/24/2023 9:47 AM EDT): Well controlled. Continue current regimen. Will follow up in 3 months. Encouraged compliance with thyroid medication. Will recheck levels in 2 months. Immunization due 01/07/2023 Macromastia 12/20/2022 Assessment & Plan (07/08/2023 10:04 AM EST): With seasonal affective component. Urged to get outside daily in early part of the day, get regular exercise. Continue Topamax 25 mg BID, Paxil 20 mg daily, Clonazepam 1 mg BID, Hydroxyzine 25 mg every 8 hours as needed. On 04/22/2023 provider informed patient that I would be retiring within a year or so, and suggested she discuss with her therapist getting on the waiting list for agency prescriber. Continue with therapist as usual and F/U with me in 2-3 months. Assessment & Plan (12/20/2022 2:53 PM EDT): Patient with breast pain due to macromastia. Will refer to plastic surgeon. GERD (gastroesophageal reflux disease) 3 Hypothyroidism 06/27/2022 Assessment & Plan (03/15/2023 9:19 AM EDT): Will send labs to recheck TSH levels to be done in 8 weeks. Assessment & Plan (03/01/2023 9:44 AM EDT): Patient with recent adjustment in thyroid medication on 02/07/23 with concerns of alopecia and plantar pain. Will send labs to recheck thyroid levels and adjust regimen as needed. Diverticular disease 06/27/2022 Overweight 06/27/2022 Assessment & Plan (12/20/2022 2:52 PM EDT): Will send labs to check levels. Spasm of cervical paraspinous muscle 06/27/2022 Dysphonia 10/07/2014 Allergic rhinitis 03/26/2013 Assessment & Plan (04/05/2023 2:48 PM EDT): Patient was given a refill for current medications. 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 Will send labs to recheck thyroid levels and adjust regimen as needed. Assessment & Plan (04/22/2023 9:56 AM EDT): Unfortunately when she decreased to Topamax 25 mg once daily she did experience increased irritability. Will now increase to Topamax 25 mg BID. Continue Paxil 20 mg daily, Clonazepam 1 mg BID, Hydroxyzine 25 mg every 8 hours as needed. Today 04/22/2023 provider informed patient that I would be retiring within a year or so, and suggested she discuss with her therapist getting on the waiting list for agency prescriber. Continue with therapist as usual and F/U with me in 2-3 months. Assessment & Plan (01/28/2023 10:04 AM EDT): Previously there was concern about possible BPD, but she says she never has episodes of talking too fast, too much energy, starting unrealistic projects, etc. Feeling dizzy and forgetful, attributed to Topamax. Will decrease to Topamax 25 mg BID. If mood continues stable, may eventually stop altogether,will discuss again at next appt. Continue Paxil 20 mg daily, Clonazepam 1 mg BID, Hydroxyzine 25 mg every 8 hours as needed. Continue with therapist as usual and F/U with me in 2-3 months. She agrees with the plan. Assessment & Plan (10/30/2022 9:40 AM EDT): Previously there was concern about possible BPD, but she says she never has episodes of talking too fast, too much energy, starting unrealistic projects, etc. Will continue Paxil 20 mg daily, Topamax 50 mg BID, Clonazepam 1 mg BID, Hydroxyzine 25 mg every 8 hours as needed. Unfortunately her long-term therapist has left the area. Suggest calling the agency periodically to check on status of new therapist. F/U with me in 2-3 months. Encounters Date Type Department Care Team Description 08/28/2024 Refill [facility] [address] [place] [address] Morgan Curran MD Hypothyroidism, unspecified type 08/12/2024 4:15 PM EST Office Visit [facility] [address] [place] [address] Morgan Curran MD Overweight (Primary Dx); Frequency of urination; Epigastric pain 08/12/2024 Telephone [facility] [address] [place] [address] Ashlee Meza MD Change PCP 08/12/2024 Travel 08/12/2024 Telephone [facility] [address] [place] [phone] Ashlee Meza MD Nurse Triage 07/31/2024 Refill [facility] [address] [place] [address] Marbella Love RN Mixed anxiety and depressive disorder 07/31/2024 Refill [facility] [address] [place] [address] Ashlee Meza MD 07/31/2024 Telephone [facility] [address] [place] [address] Ashlee Meza MD Med Refill 07/06/2024 Refill [facility] [address] [place] [address] Ashlee Meza MD Moderate persistent asthma, unspecified whether complicated 07/02/2024 Refill [facility] [address] [place] [address] Ashlee Meza MD Hypothyroidism, unspecified type 06/10/2024 Telephone [facility] [address], [place] [phone] Ashlee Meza MD Broken b/p machine 06/07/2024 Refill [facility] [address], [place] [phone] Ashlee Meza MD 06/02/2024 Telephone [facility] [address] [place] [address] Ashlee Meza MD Results from Last 3 Months Immunizations Name Administration Dates Next Due Hep A, Adult 01/13/2018,01/18/2010 Influenza Injectable Quadriv alant Preservative Free IIV4 MDCK 07/01/2022 Influenza injectable quadriv alent preservative free 09/18/2023,05/05/2020 Influenza, IIV3, injectable 04/16/2014 Influenza, Split (incl. renée fied surface antigen) 05/13/2012 Pfizer Covid-19 Vaccine 12+ 03/15/2021,,01/12/2021 Pneumococcal Conjugate PCV 20 09/18/2023 Tdap 01/13/2018 Zoster, Recombinant 09/18/2023,01/07/2023 Family History Medical History Relation Name Comments Diabetes Brother Hyperlipidemia Brother Hypertension Brother Diabetes Father Hyperlipidemia Father Diabetes Mother Hyperlipidemia Mother Hypertension Mother Relation Name Status Comments Brother Father Mother Social History Tobacco Use Types Packs/Day Years Used Date Smoking Tobacco: Never Passive Smoke Exposure: Never Smokeless Tobacco: Never Tobacco Cessation:Counseling Given: Not Answered Alcohol Use Standard Drinks/Week Comments Never 0 [...] not to disclose 2021 10:18 AM EDT Last Filed Vital Signs Vital Sign Reading [...] Mass Index 29.26 08/12/2024 3:49 PM EST Plan of Treatment Health Maintenance Due Date Last Done Comments CT Colonography 1969 FIT DNA/Cologuard 1969 FIT 1970 FOBT 1970 Sigmoidoscopy 1970 Hepatitis B Vaccines (1 of 3 - 19+ 3-dose series) 1988 COVID-19 Vaccine (2023- season) 2024 03/15/2021, 02/21/2021, 01/12/2021 Influenza Vaccine (#1) 2024 , 07/01/2022, 05/05/2020, Additional history exists SDOH Screening 09/09/2024 09/09/2023 Alcohol/Substance Use Screening 05/25/2025 05/25/2024 Depression Screening 05/25/2025 05/25/2024, 05/25/20 24 Tobacco Screening 05/25/2025 05/25/2024 Diabetes: Hemoglobin A1C 08/13/2025 025, 09/13/2022, 03/19/2022, Additional history exists Colonoscopy 09/20/2025 09/20/2020 Colorectal Cancer Screening 09/20/2025 Mammogram 01/20/2026 01/21/2024, 12/28, 05/07/2020, Additional history exists Pap Smear 03/17/2027 03/17/2024 DTaP/Tdap/Td Vaccines (2 - Td or Tdap) 01/14/2028 01/13/2018 Cervical Cancer Screening 03/17/2029 HPV/Cotest 03/17/2029 03/17/2024 Lipid Panel 08/13/2029 08/13/2024, 12/28, 12/25/2022, Additional history exists RSV Patients and Patients Aged 60 years or older (1 - 1-dose 75+ series) 2044 Hepatitis A Vaccines Completed 01/13/2018, 01/19/20 10 HIV Screening Completed 10/03/2022, 08/0 03/2022, 11/09/2021, Additional history exists Hepatitis C Screening Completed 10/03/2022 , 03/06/2022, 11/09/2021, Additional history exists Pneumococcal Vaccine: 50+ Years Completed 09/18/2023 Zoster Vaccines Completed 09/18/2023, 01/07/2023 HIB Vaccines Aged Out No longer eligi ble based on patient's age to complete this topic HPV Vaccines Aged Out No longer eligi ble based on patient's age to complete this topic IPV Vaccines Aged Out No longer eligi ble based on patient's age to complete this topic Meningococcal Vaccine Aged Out No rajni barbie eligible based on patient's age to complete this topic RSV under 20 months Aged Out No longe r eligible based on patient's age to complete this topic Rotavirus Vaccines Aged Out No longer eligible based on patient's age to complete this topic Procedures Procedure Name Priority Date/Time Associated Diagnosis Comments POCT URINALYSIS DIPSTICK Routine 08/13/2024 10:27 AM EST Frequency of urination LIPID PANEL, STANDARD Routine 08/13/2024 8:06 AM EST Overweight HEMOGLOBIN A1C Routine 08/13/2024 8:06 AM EST Overweight THINPREP IMAGING PAP AND HPV MRNA E6/E7 Routine 03/17/2024 10:00 AM EDT BI MAMMOGRAM SCREENING TOMOSYNTHESIS BILATERAL Routine 01/21/2024 11:36 AM EDT HEPATITIS C ANTIBODY Routine 10/03/2022 6:48 AM EST Hypothyroidism, unspecified type HIV ANTIBODY/ANTIGEN ([place] DPH) Routine 10/03/2022 6:48 AM EST Hypothyroidism, unspecified type HM COLONOSCOPY Routine 09/20/2020 from Last 3 Months or Most Recently Relevant to Health Maintenance Results * POCT urinalysis dipstick manually resulted [...] Appearance, UA clear QC Media Lot # Comment:[id number] Lot# Expiration Date Comment:10/26/2024 Urine 08/13/2024 10:2 7 AM EST Morgan Huffman MD POINT OF CARE TEST ENTER/EDIT ORDERABLES Final Result * Hemoglobin A1c (08/13/2024 8:06 AM EST) Hemoglobin A1c 5.8 <6.0 % [facility] Comment:Hemoglobin A1C Refer ence Range Adults: 4.8 - 6.0 % Non diabetic: < 6.0 % Goal: < 7.0 %Additional Action Suggested: > 8.0 %Note: Hemoglobin A1c results are invalid for patients with abnormal amounts of HbF. Blood transfusions may impact the HbA1c concentration in the patient sample. Estimated Average Glucose 120 mg/dL [facility] Comment:eAG = Estimated ave rage glucose which is %A1C expressed asaverage glucose, using the formula of the A2O-LyewavaGmrsxcp Glucose study (ADAG), Diabetes Care, Vol.31,#8,Feb. 2007 Blood Venous blood specimen / Unknown 08/13/2024 8:06 AM EST 08/13/2024 8:06 AM EST us Morgan Huffman MD LAB BLOOD ORDERABL ES Final Result Performing Organization Address [facility] Co de Phone Number [facility] [address] [place] [address] [phone] * (ABNORMAL) Lipid Panel, Standard (08/13/2024 8:06 AM EST) Triglycerides 109 <150 mg/dL [facility] Comment:Desirable Triglyceri de: less than 150 mg/dLBorderline High Triglyceride 150-199 mg/dLHigh Triglyceride: 200-499 mg/dLVery High Triglyceride: greater than or equal to 5OO mg/dL Cholesterol 193 <200 mg/dL [facility] Comment:Desirable Cholestero l: less than 200 mg/dLBorderline High Cholesterol: 200-239 mg/dLHigh Cholesterol: greater than 239 mg/dL LDL Cholesterol Calculated 123(H) <100 mg/dL [facility] Comment:Desirable LDL: less than 100 mg/dLNear Optimal/Above Optimal LDL: 110- 129 mg/dLBorderline High LDL: 130-159 mg/dLHigh LDL: 160-189 mg/dLVery High LDL: greater than or equal to 190 mg/dL HDL Cholesterol 49 >40 mg/dL [facility] Comment:Desirable HDL: great er than 40 mg/dL Note: This HDL assay may give artificially low results in patients with liver disease. Blood Venous blood specimen / Unknown 08/13/2024 8:06 AM EST 08/13/2024 8:06 AM EST Morgan Huffman MD LAB BLOOD ORDERABL ES Final Result Performing Organization Address City/[facility]/ZIP Co de Phone Number [facility] [address] [place] [address] [phone] * ThinPrep Imaging Pap and HPV mRNA E6/E7 (03/17/2024 10:00 AM EDT) HPV nRNA E6/E7 Not Detected Not Detected [facility] Comment:Methodology: Transcr iption-Mediated AmplificationThis assay detects E6/E7 viral messenger RNA (mRNA) from 14high-risk HPV types (16,18,31,33,35,39,45,51,52,56,58,59,66,68).Cervical sources are required for HPV testing.If a vaginal source from a patient who has had atotal hysterectomy with removal of cervix wassubmitted, please contact the testing laboratoryfor alternative testing options.For additional information, please refer [email or web address]/faq/[email or web address](This link if provided for information/educational purposes only.)THIS TEST WAS PERFORMED AT:[employer] [address] [id number] ALBERTS MD SOURCE: SEE NOTE [facility] Comment:None given Report Status: [facility] Clinical Information: SEE NOTE [facility] Comment:None given LMP: SEE NOTE [facility] Comment:NONE GIVEN Prev. PAP: SEE NOTE [facility] Comment:NONE GIVEN Prev. BX: SEE NOTE [facility] Comment:NONE GIVEN Statement Of Adequacy: SEE NOTE [facility] Comment:[employer] General Categorization: [facility] Interpretation/Result: SEE NOTE [facility] Comment:Cytology Results: Ne gative for intraepitheliallesion or malignancy.Atrophic pattern; predominantly parabasal cells Cytology Comment SEE NOTE [facility] Comment:This Pap test has be en evaluated with computerassisted technology. Printing Press Operator Apprentice: SEE NOTE [facility] Comment:DMM, CT(ASCP)CT scre ening location: [address] [address] Review Printing Press Operator Apprentice: [facility] Pathologist [facility] PAP Infection [facility] See Note SEE [facility] Comment:EXPLANATORY NOTE:The Pap is a screening test for cervical cancer. It isnot a diagnostic test and is subject to false negativeand false positive results. It is most reliable when asatisfactory sample, regularly obtained, is submittedwith relevant clinical findings and history, and whenthe Pap result is evaluated along with historic andcurrent clinical information. 03/17/2024 10:0 0 AM EDT 03/17/2024 2:30 PM EDT Narrative [facility] - 03/20/2024 2:55 PM EDT SEE SCANNED RESULTS IN EMR us Ashlee Meza MD LAB PATHOLOGY ORDERABLES Erika l Result [facility] [address] [place] [address] [phone] * BI Mammogram Screening Tomosynthesis Bilateral (01/21/2024 11:36 AM EDT) Anatomical Region Laterality Modality Breast Bilateral Mammography 01/21/2024 11:3 6 AM EDT Narrative 02/19/2024 11:23 PM EDT ? [facility] ? [address] ?[place] [address] ? Mammography Report ? Signed ? Patient: Abilio Olivares ?MR#: [id number] ?? 73 ? : 1970 ?Acct:[id number] ? Age/Sex: 53 / F ?ADM Date: 01/20/24 ? Loc: HO.MAMMO ? Attending Dr: Ashlee Meza MD ? Ordering Physician: Ashlee Meza MD ?Results: 2Beni ?? gn Findings ? Date of Service: 01/20/24 ?Follow Up: 1 Year From Orig ?? inal Mammogram ? Procedure(s): MM tomosynthesis screening BI ?? Accession Number(s): [id number] ? cc: Ashlee Meza MD ? EXAMINATION: ?? MM SCREENING DIGITAL BREAST TOMOSYNTHESIS, BILATERAL ? CLINICAL INFORMATION: ? Screening. Asymptomatic. ? The patient is status post bilateral breast reduction. ? COMPARISON: ?? Mammography: This study is compared with prior exams dating back to ?? 2019. ? TECHNIQUE: ?? Digital breast tomosynthesis is performed in both the craniocaudal and ?? mediolateral oblique views along with computer-aided detection (CAD). ?? Synthesized 2D images are generated from the tomosynthesis. ? FINDINGS: ?? The breasts are almost entirely fatty (ACR BI-RADS breast composition ?? Category a). ? There are no significant masses, abnormal calcifications, or other ?? abnormalities. ?? Post reduction changes are present bilaterally. ? MM/MM tomosynthesis screening BI ?? IMPRESSION: ?? No mammographic evidence of malignancy. ? ASSESSMENT: ? BI-RADS BI-RADS 2 - Benign Findings ? RECOMMENDATION: ?? Routine annual mammography screening. ? 1 year F/U ? This examination should not preclude the clinical evaluation of a ?? suspicious palpable abnormality. ? This patient's information was entered into a reminder system with a ?? target due date for their next mammogram. ? Dictated By: ?Jennifer Sargent MD ? Signed By: ?<Electronically signed by Jennifer Sargent MD in OV> ? 02/19/24 2319 ? DD/ 1136 ? TD/TT: ? Building Rental Superintendent: ? Procedure Note Earlene Kate - 02/19/2024 [facility] [address] [place] [address] Dr. Garcia, LIANNE [address] Mammography Report Signed Patient: Abilio OlivaresMR#: [id number] : 1970Acct:[id number] Age/Sex: 53 / FADM Date: 01/21/24 Loc: HO.MAMMO Attending Dr: Ashlee Meza MD Ordering Physician: Ashlee Meza MDResults: 2Beni gn Findings Date of Service: 01/21/24Follow Up: 1 Year From [facility] ina Mammogram Procedure(s): MM tomosynthesis screening BI Accession Number(s): [id number] cc: Ashlee Meza MD EXAMINATION: MM SCREENING DIGITAL BREAST TOMOSYNTHESIS, BILATERAL CLINICAL INFORMATION: Screening. Asymptomatic. The patient is status post bilateral breast reduction. COMPARISON: Mammography: This study is compared with prior exams dating back to 2019. TECHNIQUE: Digital breast tomosynthesis is performed in both the craniocaudal and mediolateral oblique views along with computer-aided detection (CAD). Synthesized 2D images are generated from the tomosynthesis. FINDINGS: The breasts are almost entirely fatty (ACR BI-RADS breast composition Category a). There are no significant masses, abnormal calcifications, or other abnormalities. Post reduction changes are present bilaterally. MM/MM tomosynthesis screening BI IMPRESSION: No mammographic evidence of malignancy. ASSESSMENT: BI-RADS BI-RADS 2 - Benign Findings RECOMMENDATION: Routine annual mammography screening. 1 year F/U This examination should not preclude the clinical evaluation of a suspicious palpable abnormality. This patient's information was entered into a reminder system with a target due date for their next mammogram. Dictated By: Jennifer Sargent MD Signed By: <Electronically signed by Jennifer Sargent MD in [place]> 02/19/24 2319 DD/ 1136 TD/TT: Building Rental Superintendent: Ashlee Meza MD IMG BI PROCEDURES Edited Resu lt - Final * Hepatitis C Ab (10/03/2022 6:48 AM EST) Hepatitis C Antibody Nonreactive Nonreactive [facility] Comment:Antibodies to HCV no t detected; does not exclude early acuteHCV infection. 10/03/2022 6:48 AM EST 10/03/2022 6:48 AM EST [facility] External Provider LAB BLO OD ORDERABLES Final Result [facility] [address] [place] [address] [phone] * HIV Ab/Ag (LIANNE DP) (10/03/2022 6:48 AM EST) HIV AB/AG Nonreactive Nonreactive [facility] Comment:HIV-1 p24 Ag and/or HIV-1/HIV-2 Ab not detected.A test result that is nonreactive does not exclude thepossibility of exposure to or infection with HIV-1 and/orHIV-2. Nonreactive results in this assay for individualswith prior exposure to HIV-1 and/or HIV-2 may be due toantigen and antibody levels that are below the limit ofdetection of this assay.The [employer] HIV Ag/Ab Combo assay result andsupplemental assay results should be interpreted inconjunction with the patient's clinical presentation,history and other laboratory results. If the results areinconsistent with clinical evidence, additional testing issuggested to confirm the result. 10/03/2022 6:48 AM EST 10/03/2022 6:48 AM EST [facility] External Provider LAB BLO OD ORDERABLES Final Result Performing Organization Address [facility] Co de Phone Number [facility] [address] [place] [address] [phone] * Colonoscopy (09/20/2020) Colonoscopy Normal Normal Narrative RuthKaia danielle - 09/20/2020 Recommended 5 year follow up Historical Provider HEALTH MAINTENANCE Edited Result - Final from Last 3 Months or Most Recently Relevant to Health Maintenance Insurance [employer] Care Teams Biometrics Analyst Relationship Specialty Start Date End Date Morgan Curran MD [address] [place] [phone] PCP - General Internal Medicine 08/18/24
--- OUTSIDE RECORDS SUMMARY | 2024-09-02 08:43 | XMS_ITS | Encounter Summary ---
Author Organization [employer] [facility] Address [address] [place] [address] [place] [address] Care Team Providers Care Tannery Worker Name Role Phone Ashlee Meza MD Primary Care Provider [phone] Morgan Curran MD Primary Care Prov ider Encounter Details Date Type Department Care Team ([facility] st Contact Info) Description 08/07/2022 Telephone [facility] CHC MED & PEDS [address] [place], [place] [phone] Ashlee Meza MD [address] [place] [address] Social History Tobacco Use Types Packs/Day Years Used Date Smoking Tobacco: Never Passive Smoke Exposure: Never Smokeless Tobacco: Never Comments Unknown Sex and Gender Information Value [...] on filedocumented in this encounter Care Teams Tannery Worker Relationship Specialty Start Date End Date Ashlee Meza MD [address] [place] [address] PCP - General Family Medicine 03/28/20 08/17/24 Morgan Curran MD [address] [place] [address] PCP - General Internal Medicine 08/18/24 documented as of this encounter
--- OUTSIDE RECORDS SUMMARY | 2024-09-02 08:43 | XMS_ITS | Continuity of Care Document ---
Author Organization LIANNE - JOHN COLEMAN MD [facility], Main Office Address [address] [place] [phone] Assessment Encounter Date Assessment Date Assessment LastModified by Organization Details LastModified Time 08/27/2024 08/27/2024 Telehealth. 17 min; [place]. [place]; [place] in office in [place]; [employer] cmartorell Not available 08/28/2024 10:31:52 Plan of Treatment Reminders Order Date Submit Date Provider Last Modified By Organization Details Last Modified Time Details Appointments None recorded. Lab hepatitis B DNA, quantitati ve, serum [address] [place] [address] (Lab), [address] [place] [address], [address], 10:39:53 CBC w/ diff [address] [place] [address] (Lab), [address] [place] [address], [address], 10:39:53 ALT (alanine aminotrans ferase), serum or plasma [address] [place] [address] (Lab), [address] [place] [address], [address], 10:39:52 AST/SGOT (aspartate aminotrans ferase), serum or plasma [address] [place] [address] (Lab), [address] [place] [address], [address], 10:39:52 CT + NG DNA, PCR, unspecifie d specimen 2024 025 [facility] (Lab), [address] [place] [address], [address], 5 10:39:53 creatinine w/ estimated GFR (eGFR), serum or plasma 2024 025 [facility] (Lab), [address] [place] [address], [address], 5 10:39:52 hepatitis C virus Ab, serum 2024 025 [facility] (Lab), [address] [place] [address], [address], 5 10:39:53 RPR (rapid plasma reagin), serum 2024 025 [facility] (Lab), [address] [place] [address], [address], 5 10:39:52 HIV (1+2) Ab screen, serum 2024 [facility] (Lab), [address] [place] [address], [address], 5 10:39:52 bilirubin, total, serum or plasma 2024 025 [facility] (Lab), [address] [place] [address], [address], 5 10:39:53 albumin, serum or plasma 2024 025 [facility] (Lab), [address] [place] [address], [address], 5 10:39:53 Referral None recorded. Procedures None recorded. Surgeries None recorded. Imaging US, abdomen - HBV. HCC SCreen; hx fatty liver; and GB adenomyoma tosis per previous scan 2024 025 [facility] (Imaging), [address] [facility], [place], [address], 5 10:35:39 Medication Orders None recorded. Patient TargetsNo targets recorded. Patient InstructionsNo instructions recorded. Reason for Referral None Reported. Problems Name Problem SNOMED Code Status Onset Date Resolution Date Notes Provider Name and Address Organization Details Recorded Time Steatosis of liver 953940813 Active 2023 John Vickers MD [address] [place] [address], [phone], LIANNE VICKERS MD [facility] 4 10:35:09 Adenomyomatosi s of gallbladder 565239770 Active 2023 John Vickers MD [address] [place] [address], [phone], LIANNE VICKERS MD [facility] 10:24:47 Problem Notes None recorded. Medical Equipment None Reported. Vitals None Recorded Social History None recorded. Functional Status None recorded. Mental Status None recorded. Family History Nothing Reported. Medical History No medical history recorded. Gynecological HistoryNo gynecological history recorded. Obstetrics History GPAL:G 0 P 0 0 0 0 Past Encounters None Reported. Health Concerns Section Related Observation LastModified by Organization Detai ls LastModified Time None Recorded Concern Status LastModified by Organization Details LastModified Time None Recorded Payers Encounter Date Sequence Insurance Name Policy Number Policy Sanchez Covered Member ID Sanchez Member ID Guarantor Name 08/27/2024 1 [facility] [id number] Ashley Olivares [id number] Ashley Olivares 08/27/2024 2 [place] [facility] Ashley Olivares [id number] Ashley Olivares Notes Date Note Type Note Provider Name and Address Organization Details Recorded Time 08/27/2024 text/html f/u HBV.not on t x by choice.07/2024 HBV YB=893; ALT/AST wnl; eGFE>60; negative HIV and negative syphillis. neg GC/chlamydia08/28/2023 Fibrosure F0; HDV neghad u/s and CT scan done in [place]. due to u/s 08/2023 that shows adenomyomatosis of GB; was present on 2022.;no other concerns. no abd pain. no n.v.d, abdominal discomfort after she eats. no weight loss. no fever. no jaundicemed list reviewedno new meds nor OTCdenies ETOH use. denies drug useno new medical issueshas one male partner; denies sexual activityno STI sxshe reports household is vaccinated John Vickers MD [address] [place] [address], [phone], LIANNE - JOHN VICKERS MD [facility] 08/28/2024 10:34:13 OBGyn Episode No OBEpisode recorded.
[2024-09-02 09:20] LABS: MANUAL DIFF FLAG NO
[2024-09-02 09:30] LABS: Basophils Percent Auto 0.7 % (0-2); Eosinophils Absolute Auto 0.1 X10*3/uL (0.0-0.4); Hemoglobin 12.7 g/dl (12.0-16.0); Imm Gran Abs Auto 0.02 X10*3/uL (0.00-0.03); Imm Gran Pct Auto 0.5 % (0.0-0.4); Lymphocytes Absolute Auto 1.8 X10*3/uL (1.2-4.9); Lymphocytes Percent Auto 40.8 % (20-40); Mean Corpuscular HGB Conc 33.4 g/dl (31.0-35.0); Mean Corpuscular Hemoglobin 31.2 pg (27.0-33.0); Mean Corpuscular Volume 93.4 fL (80.0-98.0); Mean Platelet Volume 10.2 fL (9.4-12.3); Monocytes Absolute Auto 0.3 X10*3/uL (0.1-1.2); Monocytes Percent Auto 6.3 % (2-11); Neutrophils Absolute Auto 2.1 x10*3/uL (2.0-8.3); Neutrophils Percent Auto 48.7 % (45-73); Platelet Count 221 X10*3/uL (160-400); Red Blood Count 4.07 X10*6/uL (4.20-5.50); Red Cell Distribution Width 12.8 % (11.0-16.0); White Blood Count 4.3 X10*3/uL (4.8-10.8)
[2024-09-02 09:56] LABS: Alanine Aminotransferase 26 U/L (0-31); Albumin Level 4.1 g/dL (3.5-5.0); Aspartate Amino Transferase 27 U/L (5-31); Bilirubin Total 0.3 mg/dL (0.0-1.0); Estimated Glomerular Filt Rate > 60
[2024-09-02 10:15] LABS: Syphilis Screen Nonreactive (Nonreactive)
[2024-09-02 10:18] LABS: HIV AB/AG Nonreactive (Nonreactive); HIV Num 1 0.06 S/CO (0.00-0.99); ~HepC Num1 0.15 S/CO (0.00-0.79); ~Hepatitis C Antibody Nonreactive (Nonreactive)
[2024-09-02 11:12] LABS: CT PCR NOT DETECTED (Not Detect.); NG PCR NOT DETECTED (Not Detect.)
[2024-09-04 18:54] LABS: Hepatitis B Viral DNA Qn - cp 3.11 Log IU/mL (NOT DETECTED); Hepatitis B Viral DNA Qn-IU/mL 1300 IU/mL (NOT DETECTED)
== END 2024-09-02 08:41 | disposition home or self-care (01) ==
LOC: HO.LAB 08:40
PROVIDERS: PCP Family Medicine; Visit Provider Internal Medicine Infectious Disease
DX: B18.1 Chronic viral hepatitis B without delta-agent (principal)
CPT/HCPCS: 82040; 82247; 82565; 84450; 84460; 85025; 86780; 86803; 87389; 87491; 87517; 87591

== ENCOUNTER 2024-09-23 16:18 | Emergency (ER) | payer MEDICAID, SELFPAY ==
--- NOTE | ~2024-09-23 | US_ITS ---
CLINICAL HISTORY: RUQ pain US abdomen limited Comparison: US/NE/SR - US ABDOMEN COMPLETE - 09/18/23 08:55 EST Findings: Normal pancreas. Normal hepatic parenchymal echogenicity and echotexture. No liver mass. Normal gallbladder and bile ducts. Right kidney normal. IMPRESSION: 1. Normal limited abdominal ultrasound. This document has been electronically signed by: Adrien Bull MD on 09/24/2024 00:38:28
[2024-09-23 16:27] VITALS: BP 145/82; PULSE 84; RESP 16; TEMP 36.5; O2SAT 96; BMI 29.1
[2024-09-23 17:14] LABS: MANUAL DIFF FLAG NO
[2024-09-23 17:15] LABS: Appearance Urine Clear; Color Urine Yellow; Glucose Urine UA Negative (Negative); Leukocyte Esterase Urine Negative (Negative); Nitrite Urine Negative (Negative); Specific Gravity - Urine <= 1.005 (1.005-1.025); Urine Blood Negative (Negative); Urine Ketones Negative (Negative); Urine Protein Negative (Neg-Trace)
[2024-09-23 17:18] LABS: Basophils Percent Auto 0.5 % (0-2); Eosinophils Absolute Auto 0.1 X10*3/uL (0.0-0.4); Eosinophils Percent Auto 2.5 % (0-4); Hematocrit 37.9 % (37.0-47.0); Hemoglobin 13.1 g/dl (12.0-16.0); Imm Gran Abs Auto 0.03 X10*3/uL (0.00-0.03); Imm Gran Pct Auto 0.5 % (0.0-0.4); Lymphocytes Absolute Auto 2.2 X10*3/uL (1.2-4.9); Lymphocytes Percent Auto 40.2 % (20-40); Mean Corpuscular HGB Conc 34.6 g/dl (31.0-35.0); Mean Corpuscular Hemoglobin 31.4 pg (27.0-33.0); Mean Corpuscular Volume 90.9 fL (80.0-98.0); Mean Platelet Volume 9.9 fL (9.4-12.3); Monocytes Absolute Auto 0.3 X10*3/uL (0.1-1.2); Monocytes Percent Auto 5.8 % (2-11); Neutrophils Absolute Auto 2.8 x10*3/uL (2.0-8.3); Neutrophils Percent Auto 50.5 % (45-73); Platelet Count 276 X10*3/uL (160-400); Red Blood Count 4.17 X10*6/uL (4.20-5.50); Red Cell Distribution Width 12.7 % (11.0-16.0); White Blood Count 5.5 X10*3/uL (4.8-10.8)
[2024-09-23 17:20] LABS: Bacteria Urine None Seen (None Seen); Hyaline Casts Urine 0-2 /LPF (0-2); RBC Urine 0-2 /HPF (0-2); Squamous Epithelial Cell Urine 0-2 /HPF (0-2); WBC Urine 0-5 /HPF (0-5)
[2024-09-23 17:33] LABS: Alanine Aminotransferase 47 U/L (0-31); Albumin Level 4.2 g/dL (3.5-5.0); Alkaline Phosphatase 85 U/L (39-117); Anion Gap 12 (12-20); Aspartate Amino Transferase 29 U/L (5-31); Bilirubin Total 0.4 mg/dL (0.0-1.0); Blood Urea Nitrogen 12 mg/dL (9-16); Calcium 9.2 mg/dL (8.4-10.2); Carbon Dioxide 23 mmol/L (22-29); Chloride 109 mmol/L (96-108); Creatinine Clr Calc Pharmacy 64.1; Estimated Glomerular Filt Rate > 60; Glucose Random 136 mg/dL (60-115); Lipase 41 U/L (8-78); Potassium 3.6 mmol/L (3.3-5.1); Sodium 140 mmol/L (135-145); Total Protein 7.8 g/dL (6.5-8.0)
[2024-09-23 23:20] VITALS: BP 154/90; PULSE 70; RESP 18; TEMP 36.6; O2SAT 98
--- NOTE | 2024-09-23 23:27 | ED_ITS ---
HPI - Abdominal Pain General Chief Complaint: Abdominal Pain Stated Complaint: Abd pain Time Seen by Provider: 09/23/24 22:37 Source: patient Limitations: no limitations History of Present Illness ED Provider: Dr. Jocelyne Schroeder HPI narrative: Patient comes to the emergency room complaining of 2 days of right upper quadrant pain. Patient states it is worse when she eats food, patient fell hurts bloated, the pain is sharp and radiates towards her back. Patient was seen in urgent care and sent to emergency room to rule out acute cholecystitis. Patient denies any fever chills. Related Data Home Medications ?Medication ?Instructions ?Recorded ?Confirmed albuterol sulfate 90 mcg/actuation 2 puff inhalation Q6H PRN 02/14/21 10/18/23 aerosol inhaler cetirizine 10 mg tablet 10 mg PO DAILY PRN 02/14/21 10/18/23 fluticasone propionate 110 1 puff inhalation BID 02/14/21 10/18/23 mcg/actuation HFA aerosol inhaler (Flovent HFA) amlodipine 5 mg tablet 5 mg PO QAM 11/09/21 10/18/23 montelukast 10 mg tablet 10 mg PO QPM 11/09/21 10/18/23 clonazepam 1 mg tablet 1 mg PO anxiety 11/07/23 fluticasone furoate 100 1 inh inhalation QAM 11/07/23 mcg/actuation blister powder for inhalation (Arnuity Ellipta) fluticasone propionate 50 1 spray intranasal BID 11/07/23 mcg/actuation nasal spray,suspension levothyroxine 50 mcg tablet 50 mcg PO QAM 11/07/23 pantoprazole 40 mg tablet,delayed 40 mg PO QAM indigestion 11/07/23 release paroxetine HCl 20 mg tablet 20 mg PO QAM 11/07/23 topiramate 25 mg tablet 25 mg PO Q12H 11/07/23 Previous Rx's ?Medication ?Instructions ?Recorded hydroxyzine HCl 25 mg tablet 25 mg PO TID PRN anxiety #20 tabs 12/02/20 dicyclomine 10 mg capsule 10 mg PO TID 30 days #90 caps 11/07/23 simethicone 125 mg chewable tablet 125 mg PO TID-QID PRN abdominal 04/06/24 distention #90 ea hyoscyamine sulfate 0.125 mg tablet 0.125 mg PO QID PRN dyspepsia #14 09/24/24 tabs Allergies Allergy/AdvReac Type Severity Reaction Status Date / Time aspirin [ASPIRIN] Allergy Severe SWELLING Verified 09/23/24 16:30 ibuprofen [From Motrin] Allergy Mild SWELLING Verified 09/23/24 16:30 lactose Allergy Mild Diarrhea Uncoded 11/07/23 08:33 Review of Systems Review of Systems Constitutional : No Weight loss, No Fever, No Chills, No Night Sweats, No Fatigue, No Malaise ENT/Mouth : No Hearing loss, No Ear Pain, No Nasal Congestion, No Sinus Pain, No Hoarseness, No sore throat, No Rhinorrhea, No Swallowing Difficulty Eyes: No Eye Pain, No Swelling, No Redness, No Foreign Body, No Discharge, No Vision Changes Cardiovascular : No Chest Pain, No SOB, No Dyspnea on Exertion, No Orthopnea, No Edema, No Palpitations Respiratory : No Cough, No Sputum, No Wheezing, No Smoke Exposure, No Dyspnea Gastrointestinal : Complaining of nausea, abdominal distention, sharp right upper quadrant pain radiating towards the back for 2-3 days, worsens with food intake Genitourinary : no irregular bleeding, No Dysuria, No Urinary Frequency, No Hematuria, No Urinary Incontinence, No Urgency, No Flank Pain, No Urinary Flow Changes, No Hesitancy Musculoskeletal : No joint pain, No Myalgias, No Joint Swelling Skin : No Skin Lesions, No rash Neuro : No Weakness, No Numbness, No Paresthesias, No Loss of Consciousness, No Dizziness, No Headache Psych : No Anxiety/Panic, No Depression, No SI/HI/AH/VH, No Social Issues, Heme/Lymph: No Bruising, No Bleeding,No Lymphadenopathy Endocrine : No Polyuria, No Polydipsia, No Temperature Intolerance PMFSH Past Medical History Medical History Hepatitis B Hypothyroidism History of back pain Anemia Hx of migraines Anxiety Depression Seasonal allergies Asthma History of palpitations HTN (hypertension) History of colon polyps Thyroid condition Tubular adenoma Acid reflux Surgical History History of esophagogastroduodenoscopy (EGD) History of tubal ligation History of nasal septoplasty Hx of bilateral breast reduction surgery History of colonoscopy Family History Family History Father Family history of high blood pressure Hx of type 1 diabetes mellitus Mother No problems noted. Social History Social History Household Members: None Alcohol intake: never Patient Tobacco Use Status: Never used Tobacco Advance Directives: No Advance Directives Information Provided: Yes Physical Exam ED Vital Signs: Vital Signs - 24 hr 09/23/24 16:27 09/23/24 23:20 Temperature 97.7 F 97.9 F Pulse Rate 84 70 Respiratory Rate 16 18 Blood Pressure 145/82 H 154/90 H Pulse Oximetry 96 98 Oxygen Delivery Method Room Air Room Air BMI result Body Mass Index 29.1 Const Other: Appearance: Alert. Oriented X3. No acute distress. Eyes: Pupils equal, round and reactive to light. ENT: Pharynx normal. Neck: Normal inspection. Neck supple. No lymph nodes noted. No crepitus CVS: Normal heart rate and rhythm. Pulses normal. Normal S1 and S2 Respiratory: No respiratory distress. Breath sounds normal. No Wheezing. No rales Abdomen: Soft , discomfort to palpation in the right upper quadrant, negative Holt sign Skin: Skin warm and dry. Normal skin color. Normal skin turgor. Extremities: No lower extremity edema. No Lacerations. No Rash Neuro: Oriented X 3. No motor deficit. No sensory deficit. Moving all extremities. No slurred speech. CN 2 through 12 grossly intact Psych: calm, cooperative, normal affect Course Course Course Narrative: I reviewed patient's medical record. In September of 2023, patient had a HIDA scan. He was negative for acute cholecystitis. Medical Decision Making Medical Decision Making [facility] Narrative: My interpretation of labs: Patient's hematology and chemistry within normal limits, LFTs and lipase within normal limits. Given patient's symptoms, we will order an ultrasound to rule out acute cholecystitis. However, as mentioned above, patient has had HIDA CT scan in the past, negative for acute cholecystitis. Patient has had chronic issues with right upper quadrant pain ultrasound does not show acute cholecystitis. Patient will follow-up with PCP and surgery for recurrent right upper quadrant pain. Differential Diagnosis Differential Diagnoses: The differential diagnosis associated with the presentation includes ( Cholecystitis, choledocholithiasis, acalculous cholecystitis) Lab Data [facility] Lab Attestation statement: I reviewed the patient's lab results. 09/23/24 17:09 09/23/24 17:09 Labs: Lab Results 09/23/24 Range/Units 17:09 WBC 5.5 (4.8-10.8) X10*3/uL RBC 4.17 L (4.20-5.50) X10*6/uL Hgb 13.1 (12.0-16.0) g/dl Hct 37.9 (37.0-47.0) % MCV 90.9 (80.0-98.0) fL MCH 31.4 (27.0-33.0) pg MCHC 34.6 (31.0-35.0) g/dl RDW 12.7 (11.0-16.0) % Plt Count 276 (160-400) X10*3/uL MPV 9.9 (9.4-12.3) fL Immature Gran % (Auto) 0.5 H (0.0-0.4) % Neut % (Auto) 50.5 (45-73) % Lymph % (Auto) 40.2 H (20-40) % [place] % (Auto) 5.8 (2-11) % Eos % (Auto) 2.5 (0-4) % Baso % (Auto) 0.5 (0-2) % Lymph # (Auto) 2.2 (1.2-4.9) X10*3/uL [place] # (Auto) 0.3 (0.1-1.2) X10*3/uL Eos # (Auto) 0.1 (0.0-0.4) X10*3/uL Baso # (Auto) 0.0 (0.0-0.2) X10*3/uL Abs Immat Gran (auto) 0.03 (0.00-0.03) X10*3/uL Absolute Neuts (auto) 2.8 (2.0-8.3) x10*3/uL Absolute Nucleated RBC 0.000 (0.0-0.012) X10*3/uL Nucleated RBC % (auto) 0.0 (0.0-0.2) /100WBC Sodium 140 (135-145) mmol/L Potassium 3.6 (3.3-5.1) mmol/L Chloride 109 H (96-108) mmol/L Carbon Dioxide 23 (22-29) mmol/L Anion Gap 12 (12-20) BUN 12 (9-16) mg/dL Creatinine 0.86 (0.5-1.4) mg/dL Estim Creat Clear Calc 64.1 Estimated GFR > 60 Random Glucose 136 H (60-115) mg/dL Calcium 9.2 (8.4-10.2) mg/dL Total Bilirubin 0.4 (0.0-1.0) mg/dL AST 29 (5-31) U/L ALT 47 H (0-31) U/L Alkaline Phosphatase 85 (39-117) U/L Total Protein 7.8 (6.5-8.0) g/dL Albumin 4.2 (3.5-5.0) g/dL Lipase 41 (8-78) U/L Urine Color Yellow Urine Appearance Clear Urine pH 6.0 (5.0-9.0) Ur Specific [place] <= 1.005 (1.005-1.025) Urine Protein Negative (Neg-Trace) mg/dL Urine Glucose (UA) Negative (Negative) mg/dL Urine Ketones Negative (Negative) mg/dL Urine Blood Negative (Negative) Urine Nitrite Negative (Negative) Ur Leukocyte Esterase Negative (Negative) Urine RBC 0-2 (0-2) /HPF Urine WBC 0-5 (0-5) /HPF Ur Squamous Epith Cells 0-2 (0-2) /HPF Urine Bacteria None Seen (None Seen) Hyaline Casts 0-2 (0-2) /LPF Independent Interpretation I performed an independent interpretation of an: Ultrasound Radiology Impression Discussion of test interpretation with radiology: I have reviewed the radiologist's reading. Radiologist Impression: Normal pancreas. Normal hepatic parenchymal echogenicity and echotexture. No liver mass. Normal gallbladder and bile ducts. Right kidney normal. IMPRESSION: 1. Normal limited abdominal ultrasound Critical Care Time Critical Care Time Critical Care Time: Yes Total Critical Care Time: 35 Attestation: I have personally provided critical care time. Time includes review of lab data, radiology results, discussion with consultants, and monitoring for potential decompensation. Intervention performed as documented. Discharge Plan Discharge Clinical Impression: Chronic right upper quadrant pain Patient Disposition: Home, Self-Care Instructions: Abdominal Pain (ED) Additional Instructions: Please follow-up with your primary care physician tomorrow. If you have any worsening or new symptoms, please return to the emergency room or call 911 Prescriptions: New hyoscyamine sulfate 0.125 mg tablet 0.125 mg PO QID PRN (Reason: dyspepsia) Qty: 14 0RF No Action simethicone 125 mg tablet,chewable 125 mg PO TID-QID PRN (Reason: abdominal distention) Qty: 90 2RF hydroxyzine HCl 25 mg tablet 25 mg PO TID PRN (Reason: anxiety) Qty: 20 0RF cetirizine 10 mg tablet 10 mg PO DAILY PRN albuterol sulfate 90 mcg/actuation HFA aerosol inhaler 2 puff inhalation Q6H PRN Flovent HFA 110 mcg/actuation HFA aerosol inhaler 1 puff inhalation BID montelukast 10 mg tablet 10 mg PO QPM amlodipine 5 mg tablet 5 mg PO QAM topiramate 25 mg tablet 25 mg PO Q12H clonazepam 1 mg tablet 1 mg PO pantoprazole 40 mg tablet,delayed release (DR/EC) 40 mg PO QAM levothyroxine 50 mcg tablet 50 mcg PO QAM fluticasone propionate 50 mcg/actuation spray,suspension 1 spray intranasal BID Arnuity Ellipta 100 mcg/actuation blister with device 1 inh inhalation QAM paroxetine HCl 20 mg tablet 20 mg PO QAM dicyclomine 10 mg capsule 10 mg PO TID 30 Days Qty: 90 0RF Rx Instructions: Take 1 QD- may increase up to tid Referrals: Desmond Forbes MD [Physician] - 09/28/24 Print Language: Macedonian
[2024-09-24 02:30] VITALS: BP 148/79; PULSE 74; RESP 18; TEMP 36.7; O2SAT 98
[2024-09-24 02:40] VITALS: BP 148/79; PULSE 74; RESP 18; TEMP 36.7; O2SAT 98
== END 2024-09-24 02:40 | disposition home or self-care (01) ==
PROVIDERS: Emergency Provider Emergency Medicine; PCP Internal Medicine
DX: R10.11 Right upper quadrant pain (principal); I10 Essential (primary) hypertension; E03.9 Hypothyroidism, unspecified; B19.10 Unspecified viral hepatitis B without hepatic coma; Z79.899 Other long term (current) drug therapy
CPT/HCPCS: 36415; 76705; 80053; 81001; 83690; 85025; 99283; 99284

== ENCOUNTER → 2024-09-23 23:24 | Outpatient (BNV) | payer MEDICAID, SELFPAY | PROVIDERS: Emergency Provider Emergency Medicine; PCP Internal Medicine; Visit Provider Radiology Diagnostic Radiology | DX: R10.11 Right upper quadrant pain (principal) | CPT/HCPCS: 76705 ==

== ENCOUNTER 2024-09-29 07:58 | Outpatient (REF) | payer MEDICAID, SELFPAY ==
--- OUTSIDE RECORDS SUMMARY | 2024-09-29 08:01 | XMS_ITS | Encounter Summary ---
Author Organization [employer] [facility] Address [address] [facility] [address] [facility] [address] [facility] 7 [place] [address] Care Team Providers Care Correspondence School Teacher Name Role Phone Morgan Curran MD Primary Care Prov ider Reason for Visit * Reason Onset Date Comments Nurse Triage 09/15/2024 Encounter Details Date Type Department Care Team (Late st Contact Info) Description 09/15/2024 Telephone [facility] [address] [place] [address] Morgan Curran MD [address] [place] [address] Nurse Triage Social History Tobacco Use Types [...] got money to buy more: Never True 09/13/2024 Within the past 12 months,th e food you bought just didn't last and you didn't have enough money to get more: Not on file Transportation Answer Date Recorded In the past [...] encounter Miscellaneous Notes * Telephone Encounter - Catherine Aguirre RN - 09/15/2024 4:40 PM EST Patient called back, requesting an appointment, given [facility] appt tomorrow. Future Appointments Date Time Provider Department Center 09/16/2024 2:20 PM [facility] Insurance verified as active per Real Time Eligibility in [facility]. * Telephone Encounter - Farrah Valdivia RN - 09/15/2024 10:05 AM EST Called pt. She states that she has had a fever of 100.3-101 for the past few days. Pt. Has been taking Tylenol and that relieves fever but, pt. Has body pain, headache, Bilateral eye pain. Pt. Feels sweaty. She has been drinking lots of fluids and eating a lot of jello. Pt. Was nauseous a few days ago but not at present. Pt. Is requesting a refill on Tylenol as she has been taking Tylenol that last month. Pt. Has slight dry cough and I advised pt. To create a steam bath in bathroom and sit outside of tub with bathroom door closed and breath in steam to relieve cough. Pt. Denies chest pain at this point. Protocol Used: Fever (Adult) Protocol-Based Disposition: Home Care Positive Triage Question: * Fever with no signs of serious infection or localizing symptoms * All higher-acuity triage questions were negative Care Advice Discussed: * Reassurance and Education - Fever * General Care Advice for Fever * Fever Medicines * Fever Medicines - Extra Notes and Warnings * Bath or Sponge Bath for Fever * Expected Course of Fever * Contagiousness * Telephone Encounter - Howard Alvarado - 09/15/2024 9:52 AM EST Symptom: Fever Outcome: Schedule an urgent appointment (within 4 hours) or talk to a nurse or provider soon Reason: Fever over 104 F (40 C) The caller accepted this outcome. documented in this encounter Plan of Treatment Upcoming Encounters Date Type Department Care Team (Late st Contact Info) Description 10/06/2024 11:15 AM EDT Telemedicine [facility] MED & PEDS [address] [place] [address] Ebenezer Acuña MD [address] [place] [address] documented as of this encounter Visit Diagnoses Diagnosis Spasm of cervical paraspinous muscle Spasm of muscle Moderate persistent asthma, unspecified whether complicated documented in this encounter Additional Health Concerns Assessment Noted Time PHQ-9 Depression Total Score: 8 05/25/20 24 8:54 AM EDT documented as of this encounter Care Teams Correspondence School Teacher Relationship Specialty Start Date End Date Morgan Curran MD [address] [place] [address] PCP - General Internal Medicine 08/18/24 documented as of this encounter
--- OUTSIDE RECORDS SUMMARY | 2024-09-29 08:01 | XMS_ITS | Encounter Summary ---
Author Organization [employer] [facility] Address [address] [facility] [address] [place] [address] Care Team Providers Care Clinical Systems Educator Name Role Phone Ashlee Meza MD Primary Care Provider [phone] Morgan Curran MD Primary Care Prov ider Reason for Visit * Reason Comments Med Refill Encounter Details Date Type Department Care Team ([facility] Contact Info) Description 09/14/2022 Refill [facility] MEDICINE [address] [place], [place] [phone] Cornell Bucio FNP Anxiety (Primary Dx) Social [...] as of this encounter Plan of Treatment Upcoming Encounters Date Type Department Care Team ([facility] Contact Info) Description 10/06/2024 11:15 AM EDT Telemedicine [facility] CHC MED & PEDS [address] [place] [address] Ebenezer Acuña MD [address] [place] [address] documented as of this encounter Visit Diagnoses Diagnosis Anxiety- Primary Anxiety state, unspecified documented in this encounter Care Teams Clinical Systems Educator Relationship Specialty Start Date End Date Ashlee Meza MD [address] [place] [id number] PCP - General Family Medicine 03/28/20 08/17/24 Morgan Curran MD [address] [place] [address] PCP - General Internal Medicine 08/18/24 documented as of this encounter
--- OUTSIDE RECORDS SUMMARY | 2024-09-29 08:01 | XMS_ITS | Encounter Summary ---
Author Organization [employer] Address [address] [facility] [address] [place] [address] Care Team Providers Care Manager Bench Name Role Phone Morgan Curran MD Primary Care Prov ider Reason for Visit * Reason Comments Med Refill Encounter Details Date Type Department Care Team ([facility] st Contact Info) Description 09/15/2024 Refill [facility] [address] [place] [address] Ashlee Meza MD [address] [place] [address] Spasm of cervical paraspinous muscle Social History Tobacco Use Types Packs/Day Years [...] Info) Description 10/06/2024 11:15 AM EDT Telemedicine [facility] [address] [place] [address] Ebenezer Acuña MD [address] [place] [address] documented as of this encounter Visit Diagnoses Diagnosis Spasm of cervical paraspinous muscle Spasm of muscle documented in this encounter Additional Health Concerns Assessment Noted Time PHQ-9 Depression Total Score: 8 05/25/20 24 8:54 AM EDT documented as of this encounter Care Teams Manager Bench Relationship Specialty Start Date End Date Morgan Curran MD [address] [place] [address] PCP - General Internal Medicine 08/18/24 documented as of this encounter
--- OUTSIDE RECORDS SUMMARY | 2024-09-29 08:01 | XMS_ITS | Encounter Summary ---
Author Organization [employer] Address [address] [facility] [address] [place] [address] Care Team Providers Care Blemish Remover Name Role Phone Morgan Curran MD Primary Care Prov ider Reason for Visit * Reason Comments Fever Headache Encounter Details Date Type Department Care Team ([facility] st Contact Info) Description 09/16/2024 2:20 PM EST Office Visit [facility] [address] [place], [place] [id number] Adriana Brock MD [address] [place] [address] Influenza A Social History Tobacco Use Types Packs/Day Years [...] the past 12 months, has t he [place] gas, oil or water company threatened to [...] Sign Reading Time Taken Comments Blood Pressure 145/85 09/16/2024 2:12 PM EST Pulse 86 09/16/2024 2:12 PM EST Temperature 37.1 ??C (98.8 ??F) 09/16/2024 2:12 PM ES T Respiratory Rate 18 09/16/2024 2:12 PM EST Oxygen Saturation 97% 09/16/2024 2:12 PM EST Inhaled Oxygen Concentration - - Weight - - Height - - Body Mass Index - - documented in this encounter Progress Notes * Adriana Brock MD - 09/16/2024 2:20 PM EST Subjective Patient ID: Ashley Olivares is a 53 y.o. female who presents for Fever and Headache. Flu Symptoms This is a new problem. The current episode started in the past 7 days. The problem occurs constantly. The problem has been unchanged. Associated symptoms include congestion, coughing, headaches and myalgias. Pertinent negatives include no abdominal pain, anorexia or arthralgias. She has tried nothing for the symptoms. Review of Systems HENT: Positive for congestion. Respiratory: Positive for cough. Gastrointestinal: Negative for abdominal pain and anorexia. Musculoskeletal: Positive for myalgias. Negative for arthralgias. Neurological: Positive for headaches. Objective Physical Exam Constitutional: Appearance: Normal appearance. She is ill-appearing. Cardiovascular: Rate and Rhythm: Normal rate and regular rhythm. Pulses: Normal pulses. Heart sounds: Normal heart sounds. Pulmonary: Effort: Pulmonary effort is normal. Breath sounds: Decreased breath sounds and wheezing present. Abdominal: General: Abdomen is flat. Neurological: Mental Status: She is alert. Assessment/Plan Diagnoses and all orders for this visit: Influenza A Started on Tamiflu and Prednisone and course of zithromax Advised steam inhaltion and warm water gargles Advised Tylenol /Motrin as needed Cont Proair - POCT Rapid Influenza B OSOM - POCT Rapid Influenza A OSOM - POCT Rapid Covid-19 BinaxNOW Other orders - predniSONE (Deltasone) 20 MG tablet; Take 1 tablet (20 mg) by mouth Once per day for 5 days. - azithromycin (Zithromax Z-Elmer) 250 MG tablet; Take 2 tabs day 1 and then 1 tab daily to finish - Dextromethorphan-guaiFENesin (Mucinex DM) 30-600 MG tablet sustained-release 12 hour; Use 1 tab TID - oseltamivir (Tamiflu) 75 MG capsule; Take 1 capsule (75 mg) by mouth 2 times daily for 5 days. documented in this encounter Plan of Treatment Upcoming Encounters Date Type Department Care Team (Late st Contact Info) Description 10/06/2024 11:15 AM EDT Telemedicine [facility] [address] [place] [address] Ebenezer Acuña MD [address] [place] [address] documented as of this encounter Procedures Procedure Name Priority Date/Time Associated Diagnosis Comments POCT RAPID COVID ANTIGEN Routine 09/16/2024 2:35 PM EST Influenza A POCT INFLUENZA B Routine 09/16/2024 2:35 PM EST Influenza A POCT INFLUENZA A Routine 09/16/2024 2:34 PM EST Influenza A documented in this encounter Results * POCT Rapid Covid-19 BinaxNOW (09/16/2024 2:35 PM EST) [facility] [address] Rapid COVID Ag Negative QC Media Lot # [id number] Lot# Expiration Date 7,026 Swab 09/16/2024 2:35 PM EST Adriana Brock MD POINT OF CARE TEST ENTER/EDIT OR DERABLES Final Result * POCT Rapid Influenza B OSOM (09/16/2024 2:35 PM EST) [facility] [address] Rapid Influenza B Ag Negative Negative, Indeterminate QC Media Lot # [id number] Lot# Expiration Date Swab 09/16/2024 2:35 PM EST Result [facility] Adriana Brock MD POINT OF CARE TEST ENTER/EDIT OR DERABLES Final Result * (ABNORMAL) POCT Rapid Influenza A OSOM (09/16/2024 2:34 PM EST) [facility] [address] Rapid Influenza A Ag Positive( A) Negative, Indeterminate QC Media Lot # [id number] Lot# Expiration Date Swab Nasopharyngeal structure / Unknown 09/16/2024 2:34 PM EST Adriana Brock MD POINT OF CARE TEST ENTER/EDIT OR DERABLES Final Result documented in this encounter Visit Diagnoses Diagnosis Influenza A Influenza with other respiratory manifestations documented in this encounter Additional Health Concerns Assessment Noted Time PHQ-9 Depression Total Score: 8 05/25/20 24 8:54 AM EDT documented as of this encounter Care Teams Blemish Remover Relationship Specialty Start Date End Date Morgan Curran MD [address] [place] [id number] PCP - General Internal Medicine 08/18/24 documented as of this encounter
--- OUTSIDE RECORDS SUMMARY | 2024-09-29 08:01 | XMS_ITS | Clinical Summary ---
Author Organization [employer] Address [address] [place] [address] [address] [place] [address] Care Team Providers Care Director [employer] Name Role Phone Morgan Curran MD Primary Care Prov ider Allergies Active Allergy Reactions Criticality Noted Date Comments Amoxicillin 08/21/2013 Other reaction(s): Itching,SOB Aspirin Swelling 07/14/2012 Glutaral 08/04/2010 Other reaction(s): Avoid Sulfa, Dapsone, Nitrofu Ibuprofen 08/04/2010 Other reaction(s): difficulty breathing Medications PARoxetine (Paxil) 20 MG tabletIndicati ons:Anxiety Take 1 tablet (20 mg) by mouth in the morning. 90 tablet 1 04/22/20 23 Active topiramate (Topamax) 25 MG tablet TAKE ONE TABLET BY MOUTH EVERY TWELVE HOURS 180 tablet 1 07/26/20 23 Active amLODIPine (Norvasc) 5 MG tablet Take 1 tablet (5 mg) by mouth in the morning. 30 tablet 11 08/05/19 24 Active montelukast (Singulair) 10 MG tablet TAKE ONE TABLET EVERY EVENING FOR ALLERGY 90 tablet 2 08/22/19 24 Active simethicone (Mylicon) 125 MG chewable tablet CHEW ONE TABLET THREE OR FOUR TIMES DAILY DAILY NEEDED 12/31/19 24 Active loratadine (Claritin) 10 MG tablet TAKE ONE TABLET BY MOUTH EVERY DAY FOR ALLERGIES 90 tablet 1 03/17/20 24 Active albuterol (2.5 MG/3ML) 0.083% nebulizer solutionIndica tions:Moderate persistent asthma, unspecified whether complicated INHALE ONE AMPULE USING A NEBULIZER FOUR TIMES DAILY NEEDED 90 mL 3 04/02/20 24 Active famotidine (Pepcid) 20 MG tablet TAKE ONE TABLET BY MOUTH AT BEDTIME 90 tablet 1 05/25/20 24 Active pantoprazole (ProtoNix) 40 MG EC tablet TAKE ONE TABLET BY MOUTH EVERY MORNING (STOMACH) 90 tablet 1 05/25/20 24 Active levothyroxine (Synthroid, Levoxyl) 50 MCG tablet TAKE ONE TABLET BY MOUTH EVERY MORNING BEFORE BREAKFAST 90 tablet 1 05/25/20 24 Active hydrOXYzine HCl (Atarax) 25 MG tabletIndicati ons:Mixed anxiety and depressive disorder TAKE ONE TABLET EVERY 8 HOURS NEEDED FOR ANXIETY 90 tablet 3 05/26/20 24 Active Arnuity Ellipta 100 MCG/ACT inhaler INHALE ONE PUFF EVERY MORNING, RINSE MOUTH AFTER USE 30 each 5 06/08/20 24 Active Blood Pressure kit 1 Units Once per day. 1 kit 06/10/20 24 Active levothyroxine (Synthroid, Levoxyl) 75 MCG tabletIndicati ons:Hypothyroi dism, unspecified type TAKE ONE TABLET EVERY MORNING SATURDAY ,, SATURDAY, SATURDAY 48 tablet 1 07/02/20 24 Active albuterol 108 (90 Base) MCG/ACT inhalerIndicat ions:Moderate persistent asthma, unspecified whether complicated INHALE TWO PUFFS EVERY 4 HOURS NEEDED FOR WHEEZING 18 g 4 07/06/20 24 Active mometasone (Nasonex) 50 MCG/ACT nasal spray Administer 2 sprays into each nostril Once per day. 17 g 2 07/31/19 25 Active clonazePAM (KlonoPIN) 1 MG tabletIndicati ons:Mixed anxiety and depressive disorder Take 1 tablet (1 mg) by mouth 2 times daily. 56 tablet 1 07/31/19 25 Active esomeprazole (NexIUM) [address] capsule Take 1 capsule (20 mg) by mouth before breakfast. Do not open capsule. 30 capsule 11 09/16/19 25 026 Active Acetaminophen Extra Strength 500 MG tabletIndicati ons:Spasm of cervical paraspinous muscle TAKE ONE TABLET EVERY 6 HOURS NEEDED (PAIN) 50 tablet 3 09/16/19 25 Active azithromycin (Zithromax Z-Elmer) 250 MG tablet Take 2 tabs day 1 and then 1 tab daily to finish 6 tablet 09/16/19 25 Active Dextromethorph an-guaiFENesin (Mucinex DM) 30-600 MG tablet sustained-rele ase 12 hour Use 1 tab TID 28 tablet 09/16/19 25 Active Acetaminophen Extra Strength 500 MG tabletIndicati ons:Spasm of cervical paraspinous muscle TAKE ONE TABLET EVERY 6 HOURS NEEDED 50 tablet 3 08/02/19 24 025 Discontinued esomeprazole (NexIUM) [address] capsule Take 1 capsule (20 mg) by mouth before breakfast. Do not open capsule. 30 capsule 11 08/12/19 025 Discontinued(Re order (will not trigger notification to Pharmacy)) predniSONE (Deltasone) 20 MG tablet Take 1 tablet (20 mg) by mouth Once per day for 5 days. 5 tablet 09/16/19 025 oseltamivir (Tamiflu) 75 MG capsule Take 1 capsule (75 mg) by mouth 2 times daily for 5 days. 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 Mixed anxiety and depressive disorder [...] Encounters Date Type Department Care Team Description 09/28/2024 Telephone [facility] [address] [place] [address] Morgan Curran MD No Show 09/28/[address] [address] Morgan Curran MD Switch appointment 09/25/2024 Telephone [facility] [address] [place] [address] Morgan Curran MD ER Follow-up 09/24/2024 Telephone [facility] [address] [place] [address] Morgan Curran MD ER Follow-up 09/23/2024 3:20 PM EST Office Visit [facility] [address] [place] [address] Ebenezer Acuña MD Adenomyomatosis of gallbladder (Primary Dx); Right upper quadrant pain 09/23/2024 Orders Only GENERIC EXTERNAL DATA DEPARTMENT Provider, Generic External Data 09/23/2024 Travel 09/23/2024 Telephone [facility] [address] [place] [address] oMrgan Curran MD Nurse Triage 09/16/2024 2:20 PM EST Office Visit [facility] [address] [place] [address] Adriana Brock MD Influenza A 09/16/2024 Travel 09/15/2024 Refill [facility] [address] [place] [address] Ashlee Meza MD Spasm of cervical paraspinous muscle 09/15/[address] [address] Morgan Curran MD Nurse Triage 09/15/2024 Refill [facility] [address] [place], [place] [phone] Ashlee Meza MD Spasm of cervical paraspinous muscle 09/15/2024 Refill [facility] [address] [place], [place] [phone] Morgan Cruran MD 08/28/2024 Refill [facility] [address] [place], [place] [phone] Morgan Curran MD Hypothyroidism, unspecified type 08/12/2024 4:15 PM EST Office Visit [facility] [address] [place], [place] [phone] Morgan Curran MD Overweight (Primary Dx); Frequency of urination; Epigastric pain 08/12/2024 Telephone [facility] [address] [place], [place] [phone] Ashlee Meza MD Change PCP 08/12/2024 Travel 08/12/2024 Telephone [facility] [address] [place] [address] Ashlee Meza MD Nurse Triage 07/31/2024 Refill [facility] [address] [place], [place] [phone] Marbella Love, DEVIN Mixed anxiety and depressive disorder 07/31/2024 Refill [facility] [address] [place], [place] [phone] Ashlee Meza MD 07/31/2024 Telephone [facility] [address] [place], [place] [phone] Ashlee Meza MD Med Refill 07/06/2024 Refill [facility] [address] [place], [place] [phone] Ashlee Meza MD Moderate persistent asthma, unspecified whether complicated 07/02/2024 Refill [facility] [address] [place] [address] Ashlee Meza MD Hypothyroidism, unspecified type from Last 3 Months Immunizations Name Administration [...] Sign Reading Time Taken Comments Blood Pressure 150/86 09/23/2024 2:52 PM EST Pulse 84 09/23/2024 2:52 PM EST Temperature 36.3 ??C (97.4 ??F) 09/23/2024 2:52 PM ES T Respiratory Rate 20 09/23/2024 2:52 PM EST Oxygen Saturation 98% 09/23/2024 2:52 PM EST Inhaled Oxygen Concentration - - Weight 67.9 kg (149 lb 9.6 oz) 09/23/2024 2:52 P M EST Height 153 cm (5' 0.24 ) 09/23/2024 2:52 PM EST Body Mass Index 28.99 09/23/2024 2:52 PM EST Plan of Treatment Upcoming Encounters Date Type Department Care Team ([facility] st Contact Info) Description 10/06/2024 11:15 AM EDT Telemedicine [facility] [address] [place] [address] Ebenezer Acuña MD [address] [place] [address] Health Maintenance Due Date Last Done Comments CT Colonography 1970 FIT DNA/Cologuard 1970 FIT 1970 FOBT 1970 Sigmoidoscopy 1970 Hepatitis B Vaccines (1 of 3 - 19+ 3-dose series) 1988 COVID-19 Vaccine ( season) 2024 03/15/2021, 02/21/2021, 01/12/2021 Influenza Vaccine (#1) 2024 , 07/01/2022, 05/05/2020, Additional history exists SDOH Screening 09/09/2024 09/09/2023 Alcohol/Substance Use Screening 05/25/2025 05/25/2024 Depression Screening 05/25/2025 05/25/2024, 05/25/20 24 Diabetes: Hemoglobin A1C 08/13/2025 025, 09/13/2022, 03/19/2022, Additional history exists Colonoscopy 09/20/2025 09/20/2020 Colorectal Cancer Screening 09/20/2025 Tobacco Screening 09/23/2025 09/23/2024 Mammogram 01/20/2026 01/21/2024, 12/28, 05/07/2020, Additional history [...] Procedure Name Priority Date/Time Associated Diagnosis Comments US ABDOMEN LIMITED Routine 09/24/2024 12 :38 AM EST LIPASE Routine 09/23/2024 5:09 PM EST COMPREHENSIVE METABOLIC PANEL Routine 09/23/2024 5:09 PM EST CBC WITH AUTO DIFFERENTIAL Routine 09/23/2024 5:09 PM EST URINALYSIS, COMPLETE, WITH REFLEX TO CULTURE Routine 09/23/2024 5:09 PM EST POCT RAPID COVID ANTIGEN Routine 09/16/2024 2:35 PM EST Influenza A POCT INFLUENZA B Routine 09/16/2024 2:35 PM EST Influenza A POCT INFLUENZA A Routine 09/16/2024 2:34 PM EST Influenza A POCT URINALYSIS DIPSTICK Routine 08/13/2024 10:27 AM [...] Recently Relevant to Health Maintenance Results * US Abdomen Limited (09/24/2024 12:38 AM EST) Anatomical Region Laterality Modality Abdomen Ultrasound 09/24/2024 12:3 8 AM EST Narrative 09/24/2024 12:39 AM EST ? [facility] ?[address] ?[place] [address] ? Ultrasound Report ? Signed ? Patient: Bee Olivaressette ?MR#: [id number] ?? 73 ? : 1970 ?Acct:[id number] ? Age/Sex: 53 / F ?ADM Date: 09/23/24 ? Loc: HO.ED ? Attending Dr: ? Ordering Physician: Jocelyne Schroeder MD ?? Date of Service: 09/23/24 ?? Procedure(s): US abdomen limited ?? Accession Number(s): [id number] ? cc: Morgan Curarn MD; Jocelyne Schroeder MD ? CLINICAL HISTORY: RUQ pain ? US abdomen limited ? Comparison: US/NV/SR - US ABDOMEN COMPLETE - 09/18/23 08:55 EST ? Findings: ?? Normal pancreas. ?? Normal hepatic parenchymal echogenicity and echotexture. No liver mass. ?? Normal gallbladder and bile ducts. ?? Right kidney normal. ? IMPRESSION: ?? 1. Normal limited abdominal ultrasound. ? This document has been electronically signed by: Adrien Bull MD on ?? 09/24/2024 00:38:28 ? Dictated By: ?Adrien Bull MD ? Signed By: ?<Electronically signed by Adrien Bull MD in OV> ? 09/24/24 0039 ? DD/ 0038 ? TD/TT: 09/24/24 0038 ? Tobacco Classer: ? Procedure Note Earlene Kate - 09/24/2024 [phone] [facility] [place] [address] Ultrasound Report Signed Patient: Regina Olivares#: [id number] 73 : 1970Acct:[id number] Age/Sex: 53 / FADM Date: 09/23/24 Loc: HO.ED Attending Dr: Ordering Physician: Jocelyne Schroeder MD Date of Service: 09/23/24 Procedure(s): US abdomen limited Accession Number(s): [id number] cc: Morgan Curran MD; Jocelyne Schroeder MD CLINICAL HISTORY: RUQ pain US abdomen limited Comparison: US/NV/SR - US ABDOMEN COMPLETE - 09/18/23 08:55 EST Findings: Normal pancreas. Normal hepatic parenchymal echogenicity and echotexture. No liver mass. Normal gallbladder and bile ducts. Right kidney normal. IMPRESSION: 1. Normal limited abdominal ultrasound. This document has been electronically signed by: Adrien Bull MD on 09/24/2024 00:38:28 Dictated By: Adrien Bull MD Signed By: <Electronically signed by Adrien Bull MD in OV> 09/24/2438 DD/ TD/TT: 09/24/2437 Tobacco Classer: us [facility] External Provider IMG US PROCEDURES Edited Result - Final * Urinalysis, Complete, with Reflex to Culture (09/23/2024 5:09 PM EST) Color Urine Yellow [facility] Appearance Urine Clear [facility] PH 6.0 5.0 - 9.0 [facility] Glucose Urine UA Negative Negative mg/dL [facility] Urine Blood Negative Negative [facility] Specific [place] - Urine <=1.005 1.005 - 1.025 [facility] Urine Protein Negative Neg-Trace mg/dL [facility] Urine Ketones Negative Negative mg/dL [facility] Nitrite Urine Negative Negative [facility] Leukocyte Esterase Urine Negative Negative [facility] RBC Urine 0-2 0 - 2 /HPF [facility] Urine WBC 0-5 0 - 5 /HPF [facility] Urine Squamous Epithelial Cell 0-2 0 - 2 /HPF [facility] Urine Bacteria None Seen None Seen [facility] Hyaline Casts, Urine 0-2 0 - 2 /LPF [facility] 09/23/2024 5:09 PM EST 09/23/2024 5:12 PM EST Narrative [facility] - 09/23/2024 5:35 PM EST [id number], Clean Catch us Generic External Data Provider LAB URINE ORDERAB LES Final Result [facility] [address] [place] [address] [phone] * (ABNORMAL) CBC auto differential (09/23/2024 5:09 PM EST) White Blood Count 5.5 4.8 - 10.8 X10*3/uL [facility] Red Blood Count 4.17(L) 4.20 - 5.50 X10*6/uL [facility] Hemoglobin 13.1 12.0 - 16.0 g/dl [facility] Hematocrit 37.9 37.0 - 47.0 % [facility] Mean Corpuscular Volume 90.9 80.0 - 98.0 fL [facility] Mean Corpuscular Hemoglobin 31.4 27.0 - 33.0 pg [facility] Mean Corpuscular HGB Conc 34.6 31.0 - 35.0 g/dl [facility] Red Cell Distribution Width 12.7 11.0 - 16.0 % [facility] Platelet Count 276 160 - 400 X10*3/uL [facility] Mean Platelet Volume 9.9 9.4 - 12.3 fL [facility] Neutrophils Percent Auto 50.5 45 - 73 % [facility] Imm Gran Pct Auto 0.5(H) 0.0 - 0.4 % [facility] Lymphocytes Percent Auto 40.2(H) 20 - 40 % [facility] Monocytes Percent Auto 5.8 2 - 11 % [facility] Eosinophils Percent Auto 2.5 0 - 4 % [facility] Basophils Percent Auto 0.5 0 - 2 % [facility] NRBC Pct Auto 0.0 0.0 - 0.2 /100WBC [facility] Neutrophils Absolute Auto 2.8 2.0 - 8.3 x10*3/uL [facility] Imm Gran Abs Auto 0.03 0.00 - 0.03 X10*3/uL [facility] Lymphocytes Absolute Auto 2.2 1.2 - 4.9 X10*3/uL [facility] Monocytes Absolute Auto 0.3 0.1 - 1.2 X10*3/uL [facility] Eosinophils Absolute Auto 0.1 0.0 - 0.4 X10*3/uL [facility] Basophils Absolute Auto 0.0 0.0 - 0.2 X10*3/uL [facility] NRBC Abs Auto 0.000 0.0 - 0.012 X10*3/uL [facility] 09/23/2024 5:09 PM EST 09/23/2024 5:12 PM EST us Generic External Data Provider LAB BLOOD ORDERAB LES Final Result Performing Organization Address [facility] Co de Phone Number [facility] [address] [place] [phone] * Lipase (09/23/2024 5:09 PM EST) Lipase 41 8 - 78 U/L [facility] 09/23/2024 5:09 PM EST 09/23/2024 5:12 PM EST Generic External Data Provider LAB BLOOD ORDERAB LES Final Result Performing Organization Address [facility] Co de Phone Number [facility] [address] [place] [phone] * (ABNORMAL) Comprehensive Metabolic Panel (09/23/2024 5:09 PM EST) Sodium 140 135 - 145 mmol/L [facility] Potassium 3.6 3.3 - 5.1 mmol/L [facility] Chloride 109(H) 96 - 108 mmol/L [facility] Carbon Dioxide 23 22 - 29 mmol/L [facility] Anion Gap 12 12 - 20 [facility] Urea Nitrogen (BUN) 12 9 - 16 mg/dL [facility] Creatinine, Serum 0.86 0.5 - 1.4 mg/dL [facility] Creatinine Clr Calc Pharmacy 64.1 [facility] Comment:Provided height and weight: 152.4 cm,67.585 kg.eGFR (calculated from the MDRD study equation) and eCrCl(calculated from the Cockcroft-Gault equation) are based ondifferent parameters and may not yield comparable results.If eCrCl result is absurd, please check patient'sheight/weight. Estimated Glomerular Filt Rate >60 [facility] Comment:Chronic Kidney Disea se: Estimated GFR < 60 mL/min/1.62f7Nvpeul Kidney Disease: Estimated GFR < 15 mL/min/1.73m2 Glucose 136(H) 60 - 115 mg/dL [facility] Calcium 9.2 8.4 - 10.2 mg/dL [facility] Bilirubin, Total 0.4 0.0 - 1.0 mg/dL [facility] Aspartate Amino Transferase 29 5 - 31 U/L [facility] Alanine Aminotransferase 47(H) 0 - 31 U/L [facility] Total Protein 7.8 6.5 - 8.0 g/dL [facility] Albumin Level 4.2 3.5 - 5.0 g/dL [facility] Alkaline Phosphatase 85 39 - 117 U/L [facility] 09/23/2024 5:09 PM EST 09/23/2024 5:12 PM EST us Generic External Data Provider LAB BLOOD ORDERAB LES Final Result [facility] [address] [place] [address] [phone] * POCT Rapid Covid-19 BinaxNOW (09/16/2024 2:35 PM EST) [facility] Rapid COVID Ag Negative QC Media Lot # [id number] Lot# Expiration Date 7,026 Swab 09/16/2024 2:35 PM EST Adriana Brock MD POINT OF CARE TEST ENTER/EDIT OR DERABLES Final Result * POCT Rapid Influenza B OSOM (09/16/2024 2:35 PM EST) [facility] Rapid Influenza B Ag Negative Negative, Indeterminate QC Media Lot # [id number] Lot# Expiration Date [id number] Swab 09/16/2024 2:35 PM EST Adriana Brock MD POINT OF CARE TEST ENTER/EDIT OR DERABLES Final Result * (ABNORMAL) POCT Rapid Influenza A OSOM (09/16/2024 2:34 PM EST) [facility] Rapid Influenza A Ag Positive( A) Negative, Indeterminate QC Media Lot # [id number] Lot# Expiration Date [id number] Swab Nasopharyngeal structure / Unknown 09/16/2024 2:34 PM EST Adriana Brock MD POINT OF CARE TEST ENTER/EDIT OR DERABLES Final Result * POCT urinalysis dipstick manually resulted (08/13/2024 10:27 AM EST) [facility] Color, UA Yellow Clarity, UA Clear Glucose, UA Negative Bilirubin, UA Negative Ketones, UA Negative Spec Grav, UA 1.010 Blood, UA Negative Negative, None Detected pH, UA 6.5 Protein, UA Negative Urobilinogen, UA 0.2 Leukocytes, UA Negative Negative, Rare, Trace Nitrite, UA Negative Negative, None Detected Appearance, UA clear QC Media Lot # Comment:[id number] Lot# Expiration Date Comment:10/26/2024 Urine 08/13/2024 10:2 7 AM EST us Morgan Huffman MD POINT OF CARE TEST ENTER/EDIT ORDERABLES Final Result * Hemoglobin A1c (08/13/2024 8:06 AM EST) Hemoglobin A1c 5.8 <6.0 % [facility] Comment:Hemoglobin A1C Refer ence Range Adults: 4.8 - 6.0 % Non diabetic: < 6.0 % Goal: < 7.0 %Additional Action Suggested: > 8.0 %Note: Hemoglobin A1c results are invalid for patients with abnormal amounts of HbF. Blood transfusions may impact the HbA1c concentration in the patient sample. Estimated Average Glucose 120 mg/dL [facility] Comment:eAG = Estimated ave rage glucose which is %A1C expressed asaverage glucose, using the formula of the P4D-LzlwqkxQpdbtdn Glucose study (ADAG), Diabetes Care, Vol.31,#8,2007 Blood Venous blood specimen / Unknown 08/13/2024 8:06 AM EST 08/13/2024 8:06 AM EST us Morgan Huffman MD LAB BLOOD ORDERABL ES Final Result [facility] [address] [place] [address] [phone] * (ABNORMAL) Lipid Panel, Standard (08/13/2024 8:06 AM EST) Triglycerides 109 <150 mg/dL [facility] Comment:Desirable Triglyceri de: less than 150 mg/dLBorderline High Triglyceride 150-199 mg/dLHigh Triglyceride: 200-499 mg/dLVery High Triglyceride: greater than or equal to 5OO mg/dL Cholesterol 193 <200 mg/dL [facility] Comment:Desirable Cholestero l: less than 200 mg/dLBorderline High Cholesterol: 200-239 mg/dLHigh Cholesterol: greater than 239 mg/dL LDL Cholesterol Calculated 123(H) <100 mg/dL [facility] Comment:Desirable LDL: less than 100 mg/dLNear Optimal/Above Optimal LDL: 110- 129 mg/dLBorderline High LDL: 130-159 mg/dLHigh LDL: 160-189 mg/dLVery High LDL: greater than or equal to 190 mg/dL HDL Cholesterol 49 >40 mg/dL [facility] Comment:Desirable HDL: great er than 40 mg/dL Note: This HDL assay may give artificially low results in patients with liver disease. Blood Venous blood specimen / Unknown 08/13/2024 8:06 AM EST 08/13/2024 8:06 AM EST us Morgan Huffman MD LAB BLOOD ORDERABL ES Final Result [facility] [address] [place] [address] [phone] * ThinPrep Imaging Pap and HPV mRNA E6/E7 (03/17/2024 10:00 AM EDT) HPV nRNA E6/E7 Not Detected Not Detected [facility] Comment:Methodology: Transcr iption-Mediated AmplificationThis assay detects E6/E7 viral messenger RNA (mRNA) from 14high-risk HPV types (16,18,31,33,35,39,45,51,52,56,58,59,66,68).Cervical sources are required for HPV testing.If a vaginal source from a patient who has had atotal hysterectomy with removal of cervix wassubmitted, please contact the testing laboratoryfor alternative testing options.For additional information, please refer [email or web address]/faq/MEB493n3(This link if provided for information/educational purposes only.)THIS TEST WAS PERFORMED AT:[facility] [place] [phone] ALBERTS MD SOURCE: SEE NOTE [facility] Comment:None given Report Status: TNP [facility] Clinical Information: SEE NOTE [facility] Comment:None given LMP: SEE NOTE [facility] Comment:NONE GIVEN Prev. PAP: SEE NOTE [facility] Comment:NONE GIVEN Prev. BX: SEE NOTE [facility] Comment:NONE GIVEN Statement Of Adequacy: SEE NOTE [facility] Comment:SATISFA[employer]ORY FOR [place] General Categorization: [facility] Interpretation/Result: SEE NOTE [facility] Comment:Cytology Results: Ne gative for intraepitheliallesion or malignancy.Atrophic pattern; predominantly parabasal cells Cytology Comment SEE NOTE [facility] Comment:This Pap test has be en evaluated with computerassisted technology. Health Safety Manager: SEE NOTE [facility] Comment:DMM, CT(ASCP)CT scre ening location: [address] [address] Review Health Safety Manager: [facility] Pathologist [facility] PAP Infection [facility] See Note SEE NOTE [facility] Comment:EXPLANATORY NOTE:The Pap is a [...] AM EDT 03/17/2024 2:30 PM EDT Narrative [facility] - 03/20/2024 2:55 PM EDT SEE SCANNED RESULTS IN EMR us Ashlee Meza MD LAB PATHOLOGY ORDERABLES Erika rich Result [facility] [address] [place] [phone] * BI Mammogram Screening Tomosynthesis Bilateral (01/21/2024 11:36 AM EDT) Anatomical Region Laterality Modality Breast Bilateral Mammography 01/21/2024 11:3 6 AM EDT Narrative 02/19/2024 11:23 PM EDT ? [facility] ? [address] ?[place] [address] ? Mammography Report ? Signed ? Patient: Marshall,Abilio ?MR#: [id number] ?? 73 ? : 1970 ?Acct:[id number] ? Age/Sex: 53 / F ?ADM Date: 06/25/24 ? Loc: HO.MAMMO ? Attending Dr: Ashlee Meza MD ? Ordering Physician: Ashlee Meza MD ?Results: 2Beni ?? gn Findings ? Date of Service: 01/21/24 ?Follow Up: 1 Year From Orig ?? inal Mammogram ? Procedure(s): MM tomosynthesis screening BI ?? Accession Number(s): [id number] ? cc: Ashlee Meza MD ? EXAMINATION: [...] by Jennifer Sargent MD in OV> ? 02/19/242318 ? DD/ 1136 ? TD/TT: ? Tobacco Classer: ? Procedure Note Donjohnsonter, Image - 02/19/2024 [facility] [address] [place], [place] [address] Mammography Report Signed Patient: Abilio OlivaresMR#: [id number] 73 : 1970Acct:[id number] Age/Sex: 53 / FADM Date: 01/21/24 Loc: HO.MAMMO Attending Dr: Ashlee Meza MD Ordering Physician: Ashlee Meza MDResults: 2Beni gn Findings Date of Service: 01/21/24Follow Up: 1 Year From Orig inal Mammogram Procedure(s): MM tomosynthesis screening BI Accession Number(s): [id number] cc: Ashlee Meza MD EXAMINATION: MM SCREENING [...] in OV> 02/19/24 2319 DD/ 1136 TD/TT: Tobacco Classer: Ashlee Meza MD IMG BI PROCEDURES Edited Resu lt - Final * Hepatitis C Ab (10/03/2022 6:48 AM EST) Hepatitis C Antibody Nonreactive Nonreactive [facility] Comment:Antibodies to HCV no t detected; does not exclude early acuteHCV infection. 10/03/2022 6:48 AM EST 10/03/2022 6:48 AM EST Result [facility] External Provider LAB BLO OD ORDERABLES Final Result [facility] [address] [place] [address] [phone] * HIV Ab/Ag ([facility]) (10/03/2022 6:48 AM EST) HIV AB/AG Nonreactive Nonreactive [facility] Comment:HIV-1 p24 Ag and/or HIV-1/HIV-2 Ab not detected.A test result that is nonreactive does not exclude thepossibility of exposure to or infection with HIV-1 and/orHIV-2. Nonreactive results in this assay for individualswith prior exposure to HIV-1 and/or HIV-2 may be due toantigen and antibody levels that are below the limit ofdetection of this assay.[employer] Artist'S Representative HIV Ag/Ab Combo assay result andsupplemental assay results should be interpreted inconjunction with the patient's clinical presentation,history and other laboratory results. If the results areinconsistent with clinical evidence, additional testing issuggested to confirm the result. 10/03/2022 6:48 AM EST 10/03/2022 6:48 AM EST [facility] External Provider LAB BLO OD ORDERABLES Final Result [facility] [address] [place] [address] [phone] * Hm Colonoscopy (09/20/2020) Colonoscopy Normal Normal Narrative Kaia Miranda - 09/20/2020 Recommended 5 year follow up Historical Provider HEALTH MAINTENANCE Edited Result - Final from Last 3 Months or Most Recently Relevant to Health Maintenance Insurance [facility] [id number] [place] [address] [employer] Care Teams Director Enterprise Systems Relationship Specialty Start Date End Date Morgan Curran MD [address] [place] [phone] PCP - General Internal Medicine 08/18/24
--- OUTSIDE RECORDS SUMMARY | 2024-09-29 08:01 | XMS_ITS | Encounter Summary ---
Author Organization [employer] [facility] Address [address] [facility] 7t [place] [address] Care Team Providers Care Regional Agronomist Name Role Phone Ashlee Meza MD Primary Care Provider [phone] Morgan Curran MD Primary Care Prov ider Encounter Details Date Type Department Care Team (Late Contact Info) Description 09/14/2022 Orders Only [facility] MEDICINE [address] [place] [address] Adriana Brock MD [address] [place] [address] Hypothyroidism, unspecified type (Primary Dx) Social History [...] Upcoming Encounters Date Type Department Care Team ([facility] Contact Info) Description 10/06/2024 11:15 AM EDT Telemedicine [facility] CH[facility] MED & PEDS [address] [facility] [place] [address] Ebenezer Acuña MD [address] [place] [address] documented as of this encounter Procedures Procedure Name Priority Date/Time Associated Diagnosis Comments TSH W/REFLEX TO FT4 Routine 2022 8 :28 AM EDT Hypothyroidism, unspecified type HEPATITIS C ANTIBODY Routine 10/03/2022 6:48 AM EST Hypothyroidism, unspecified type HIV ANTIBODY/ANTIGEN ([place] [facility]) Routine 10/03/2022 6:48 AM EST Hypothyroidism, [...] Free T4 1.16 0.32 - 4.0 uIU/mL [facility] 2022 8:28 AM EDT 2022 8:28 AM EDT [facility] External Provider LAB BLO OD ORDERABLES Final Result Performing Organization Address City/State/[facility] Co de Phone Number [facility] [address] [place] [phone] * Hepatitis??D Virus (HDV) Antibody, Total (10/03/2022 6:48 AM EST) Hepatitis D Antibody, Total NEGATIVE [facility] Comment:REFERENCE RANGE: NEG ATIVE INTERPRETIVE [...] and its analyticalperformance characteristics have been determinedby [employer]. It has not been cleared orapproved by FDA. This assay has been validatedpursuant to the CLIA regulations and is used forclinical purposes.THIS TEST WAS PERFORMED AT:[employer]/[id number] [place] [address]RGBEIKARLEY OROZCO MD,PHD,LYNN 10/03/2022 6:48 AM EST 10/03/2022 6:48 AM EST [facility] External Provider LAB BLO OD ORDERABLES Final Result Performing Organization Address [facility] Co de Phone Number [facility] [address] [place] [phone] * Hepatitis B Core??Antibody (IgM) (10/03/2022 6:48 AM EST) Hepatitis B Core Antibody IgM NON-REACTI VE NON-REACT KIM [facility] Comment:THIS TEST WAS PERFOR MED AT:[employer] [address] [address]ADKFYANGELICA ALBERTS MD 10/03/2022 6:48 AM EST 10/03/2022 6:48 AM EST [facility] External Provider LAB BLO OD ORDERABLES Final Result Performing Organization Address [facility] de Phone Number [facility] [address] [place] [phone] * (ABNORMAL) Hepatitis B Virus DNA, Quantitative, Real-Time PCR (10/03/2022 6:48 AM EST) Hepatitis B Viral DNA Qn - cp 2.83(A) NOT DETECTED Log IU/mL [facility] Comment:This test was perfor med using Real-Time Polymerase ChainReaction.Reportable Range: 10 IU/mL to 1,000,000,000 IU/mL.(1.00 Log IU/mL to 9.00 Log IU/mL).The analytical performance characteristics of this assayhave been determined by [employer]. Themodifications have not been cleared or approved by theA. This assay has been validated pursuant to the CLIAregulations and is used for clinical purposes.THIS TEST WAS PERFORMED AT:[employer] [address] [address]AEPRIGAGE ALBERTS MD Hepatitis B Viral DNA Qn-IU/mL 683(A) NOT DETECTED IU/mL [facility] 10/03/2022 6:48 AM EST 10/03/2022 6:48 AM EST [facility] External Provider LAB BLO OD ORDERABLES Final Result Performing Organization Address City/[facility]/ZIP Co de Phone Number [facility] [address] [place] [phone] * (ABNORMAL) Hepatitis B Surface Antigen with Reflex Confirmation (10/03/2022 6:48 AM EST) Hepatitis B Surface Ag Confirmed Pos(A) Negative [facility] Comment:RESULTS OF CALLED TO AND READ BACK BY AT 1126 BY WENCESLAO.Results of HBSAG called to and read back byon 10/05/22 at 1134 by WENCESLAO. 10/03/2022 6:48 AM EST 10/03/2022 6:48 AM EST [facility] External Provider LAB BLO OD ORDERABLES Final Result Performing Organization Address [facility] Co de Phone Number [facility] [address] [place] [phone] * HIV Ab/Ag ([place] [facility]) (10/03/2022 6:48 AM EST) HIV AB/AG Nonreactive Nonreactive [facility] Comment:HIV-1 p24 Ag and/or HIV-1/HIV-2 Ab not detected.A test result that is nonreactive does not exclude thepossibility of exposure to or infection with HIV-1 and/orHIV-2. Nonreactive results in this assay for individualswith prior exposure to HIV-1 and/or HIV-2 may be due toantigen and antibody levels that are below the limit ofdetection of this assay.[employer] Framing Mill Operator HIV Ag/Ab Combo assay result andsupplemental assay results should be interpreted inconjunction with the patient's clinical presentation,history and other laboratory results. If the results areinconsistent with clinical evidence, additional testing issuggested to confirm the result. 10/03/2022 6:48 AM EST 10/03/2022 6:48 AM EST [facility] External Provider LAB BLO OD ORDERABLES Final Result Performing Organization Address [facility] de Phone Number [facility] [address] [place] [phone] * Hepatitis C Ab (10/03/2022 6:48 AM EST) Hepatitis C Antibody Nonreactive Nonreactive [facility] Comment:Antibodies to HCV no t detected; does not exclude early acuteHCV infection. 10/03/2022 6:48 AM EST 10/03/2022 6:48 AM EST [facility] External Provider LAB BLO OD ORDERABLES Final Result Performing Organization Address [facility] de Phone Number [facility] [address] [place] [phone] * Hepatitis B Surface Antibody, Qualitative (10/03/2022 6:48 AM EST) ~Hepatitis B Surface Antibody NONREACTIVE Nonreactive [facility] Comment:Nonreactive: < 8.00 mIU/mL 10/03/2022 6:48 AM EST 10/03/2022 6:48 AM EST [facility] External Provider LAB BLO OD ORDERABLES Final Result Performing Organization Address [facility] de Phone Number [facility] [address] [place] [phone] * Albumin (10/03/2022 6:48 AM EST) Albumin Level 4.1 3.5 - 5.0 g/dL [facility] 10/03/2022 6:48 AM EST 10/03/2022 6:48 AM EST [facility] External Provider LAB BLO OD ORDERABLES Final Result Performing Organization Address [facility] Phone Number [facility] [address] [place] [phone] * ALT (10/03/2022 6:48 AM EST) Alanine Aminotransferase 24 0 - 31 U/L [facility] 10/03/2022 6:48 AM EST 10/03/2022 6:48 AM EST [facility] External Provider LAB BLO OD ORDERABLES Final Result Performing Organization Address [facility] Phone Number [facility] [address] [place] [phone] * AST (10/03/2022 6:48 AM EST) Aspartate Amino Transferase 22 5 - 31 U/L [facility] 10/03/2022 6:48 AM EST 10/03/2022 6:48 AM EST [facility] External Provider LAB BLO OD ORDERABLES Final Result Performing Organization Address [facility] Phone Number [facility] [address] [place] [phone] * Bilirubin, Total (10/03/2022 6:48 AM EST) Bilirubin, Total 0.3 0.0 - 1.0 mg/dL [facility] 10/03/2022 6:48 AM EST 10/03/2022 6:48 AM EST [facility] External Provider LAB BLO OD ORDERABLES Final Result Performing Organization Address [facility]/ZIP Co de Phone Number [facility] [address] [place] [address] [phone] * Glucose, Random (10/03/2022 6:48 AM EST) Glucose 113 60 - 115 mg/dL [facility] 10/03/2022 6:48 AM EST 10/03/2022 6:48 AM EST [facility] External Provider LAB BLO OD ORDERABLES Final Result Performing Organization Address City/[facility] Co de Phone Number [facility] [address] [place] [address] [phone] * Creatinine, Serum (10/03/2022 6:48 AM EST) Creatinine, Serum 0.86 0.5 - 1.4 mg/dL [facility] Estimated Glomerular Filt Rate >60 [facility] Comment:NOTE: For -Am erican individuals, multiply the result by 1.210.Chronic Kidney Disease: Estimated GFR < 60 mL/min/1.38t0Gyvvjr Kidney Disease: Estimated GFR < 15 mL/min/1.73m2 10/03/2022 6:48 AM EST 10/03/2022 6:48 AM EST [facility] External Provider LAB BLO OD ORDERABLES Final Result Performing Organization Address City/[facility]/ZIP Co de Phone Number [facility] [address] [place] [phone] * (ABNORMAL) CBC auto differential (10/03/2022 6:48 AM EST) White Blood Count 4.7(L) 4.8 - 10.8 X10*3/uL [facility] Red Blood Count 4.22 4.20 - 5.50 X10*6/uL [facility] Hemoglobin 12.8 12.0 - 16.0 g/dl [facility] Hematocrit 38.2 37.0 - 47.0 % [facility] Mean Corpuscular Volume 90.5 80.0 - 98.0 fL [facility] Mean Corpuscular Hemoglobin 30.3 27.0 - 33.0 pg [facility] Mean Corpuscular HGB Conc 33.5 31.0 - 35.0 g/dl [facility] Red Cell Distribution Width 12.5 11.0 - 16.0 % [facility] Platelet Count 249 160 - 400 X10*3/uL [facility] Mean Platelet Volume 10.4 9.4 - 12.3 fL [facility] Neutrophils Percent Auto 50.8 45 - 73 % [facility] Imm Gran Pct Auto 0.4 0.0 - 0.4 % [facility] Lymphocytes Percent Auto 38.8 20 - 40 % [facility] Monocytes Percent Auto 6.0 2 - 11 % [facility] Eosinophils Percent Auto 3.4 0 - 4 % [facility] Basophils Percent Auto 0.6 0 - 2 % [facility] NRBC Pct Auto 0.0 0.0 - 0.2 /100WBC [facility] Neutrophils Absolute Auto 2.4 2.0 - 8.3 x10*3/uL [facility] Imm Gran Abs Auto 0.02 0.00 - 0.03 X10*3/uL [facility] Lymphocytes Absolute Auto 1.8 1.2 - 4.9 X10*3/uL [facility] Monocytes Absolute Auto 0.3 0.1 - 1.2 X10*3/uL [facility] Eosinophils Absolute Auto 0.2 0.0 - 0.4 X10*3/uL [facility] Basophils Absolute Auto 0.0 0.0 - 0.2 X10*3/uL [facility] NRBC Abs Auto 0.000 0.0 - 0.012 X10*3/uL [facility] 10/03/2022 6:48 AM EST 10/03/2022 6:48 AM EST us [facility] External Provider LAB BLO OD ORDERABLES Final Result [facility] [address] [place] [phone] documented in this encounter Visit Diagnoses Diagnosis Hypothyroidism, unspecified type- Primary documented in this encounter Care Teams Regional Agronomist Relationship Specialty Start Date End Date Ashlee Meza MD [address] [place] [phone] PCP - General Family Medicine 03/28/20 08/17/24 Morgan Curran MD [address] [place] [phone] PCP - General Internal Medicine 08/18/24 documented as of this encounter
--- OUTSIDE RECORDS SUMMARY | 2024-09-29 08:01 | XMS_ITS | Encounter Summary ---
Author Organization [facility] [facility] Address [address] [place] [address] 7[address] [place] [address] Care Team Providers Care Collar Cutter Name Role Phone Ashlee Meza MD Primary Care Provider [phone] Morgan Curran MD Primary Care Prov ider Reason for Visit * Reason Onset Date Comments triage 12/04/2022 Encounter Details Date Type Department Care Team ([facility] st Contact Info) Description 12/04/2022 Telephone [facility] CH[facility] MED & PEDS [address] [place], [place] [phone] Ashlee Meza MD [address] [place], [place] [phone] triage Social History Tobacco Use Types Packs/Day [...] encounter Miscellaneous Notes * Telephone Encounter - uYli Carcamo RN - 12/04/2022 11:13 AM EDT Triage call with Saber Hacer Senior Net Developer [place] [id number] Pt reports for two days now, itchy [...] Upcoming Encounters Date Type Department Care Team ([facility] st Contact Info) Description 10/06/2024 11:15 AM EDT Telemedicine [facility] MED & PEDS [address] [place] [phone] Ebenezer Acuña MD [address] [place] [phone] documented as of this encounter Visit Diagnoses Not on filedocumented in this encounter Additional Health Concerns Assessment Noted Time PHQ-9 Depression Total Score: 5 10/31/19 23 9:17 AM EDT documented as of this encounter Care Teams Collar Cutter Relationship Specialty Start Date End Date Ashlee Meza MD [address] [place] [phone] PCP - General Family Medicine 03/28/20 08/17/24 Morgan Curran MD [address] [place] [address] PCP - General Internal Medicine 08/18/24 documented as of this encounter
--- OUTSIDE RECORDS SUMMARY | 2024-09-29 08:01 | XMS_ITS | Encounter Summary ---
Author Organization [employer] Address [address] [facility] 7[address] [place] [address] Care Team Providers Care Copra Processor Name Role Phone Morgan Curran MD Primary Care Prov ider Encounter Details Date Type Department Care Team (Latest Contact Info) Description 09/16/2024 Travel Social History Tobacco Use Types Packs/Day [...] Upcoming Encounters Date Type Department Care Team ([facility] st Contact Info) Description 10/06/2024 11:15 AM EDT Telemedicine [facility] MED & PEDS [address] [place] [address] Ebenezer Acuña MD [address] [place] [address] documented as of this encounter Visit Diagnoses Not on filedocumented in this encounter Additional Health Concerns Assessment Noted Time PHQ-9 Depression Total Score: 8 05/25/20 24 8:54 AM EDT documented as of this encounter Care Teams Copra Processor Relationship Specialty Start Date End Date Morgan Curran MD [address] [place] [address] PCP - General Internal Medicine 08/18/24 documented as of this encounter
--- OUTSIDE RECORDS SUMMARY | 2024-09-29 08:01 | XMS_ITS | Encounter Summary ---
Author Organization [employer] Address [address] [facility] [address]t [place] [address] Care Team Providers Care Money Order Clerk Name Role Phone Morgan Curran MD Primary Care Prov ider Reason for Visit * Reason Onset Date Comments Med Refill 09/15/2024 Encounter Details Date Type Department Care Team (Late st Contact Info) Description 09/15/2024 Refill [facility] CH[facility] MED & PEDS [address] [place] [address] Ashlee Meza MD [address] [place] [address] Spasm of cervical paraspinous muscle Social History [...] Info) Description 10/06/2024 11:15 AM EDT Telemedicine [facility] MED & PEDS [address] [place] [address] Ebenezer Acuña MD [address] [place] [address] documented as of this encounter Visit Diagnoses Diagnosis Spasm of cervical paraspinous muscle Spasm of muscle documented in this encounter Additional Health Concerns Assessment Noted Time PHQ-9 Depression Total Score: 8 05/25/20 24 8:54 AM EDT documented as of this encounter Care Teams Money Order Clerk Relationship Specialty Start Date End Date Morgan Curran MD [address] [place] [address] PCP - General Internal Medicine 08/18/24 documented as of this encounter
--- OUTSIDE RECORDS SUMMARY | 2024-09-29 08:02 | XMS_ITS | Data Portability ---
Author Organization MD - JOHN COLEMAN MD [facility], Main Office Address [address] [place] [phone] Assessment Encounter Date Assessment Date Assessment LastModified by Organization Details LastModified Time 08/27/2023 08/27/2023 telehealth. doximity. 19 min. pt home in [place] [email or web address] Not available 08/27/2023 10:30:23 09/19/2023 09/19/2023 VIDEO. telehealth. doximity. 19 min. pt home in [place] [email or web address] Not available 09/19/2023 19:27:02 08/27/2024 08/27/2024 Telehealth. 17 min; video. pt home in MD; MD in office in MD; doximity [email or web address] Not available 08/28/2024 10:31:52 Plan of Treatment Reminders Order Date Submit Date Provider Last Modified By Organization Details Last Modified Time Details Appointments B20 FOLLOW UP 2024 11:00A Tj Vickers MD Not available Not available Not available Lab hepatitis B DNA, quantitat anastacia, serum [address] (Lab), [address] [place] [address], [id number], 09/04/2024 08:48:24 CBC w/ diff [address] (Lab), [address] [place] [address], [address], 09/04/2024 08:48:25 ALT (alanine aminotran sferase), serum or plasma [address] (Lab), [address] [place] [address], [id number], 09/04/2024 08:48:25 AST/SGOT (aspartat e aminotran sferase), serum or plasma [address] [place] [address] (Lab), [address] [place] [address], [address], 09/04/2024 08:48:25 CT + NG DNA, PCR, unspecifi ed specimen [address] [place] [address] (Lab), [address] [place] [address], [id number], 09/04/2024 08:48:25 creatinin e w/ estimated GFR (eGFR), serum or plasma [address] [place] [address] (Lab), [address] [place] [address], [address], 09/04/2024 08:48:25 hepatitis C virus Ab, serum [address] [place] [address] (Lab), [address] [place] [address], [id number], 09/04/2024 08:48:25 RPR (rapid plasma reagin), serum [address] [place] [address] (Lab), [address] [place] [address], [address], 09/04/2024 08:48:25 HIV (1+2) Ab screen, serum [address] [place] [address] (Lab), [address] [place] [address], [address], 09/04/2024 08:48:25 bilirubin , total, serum or plasma [address] [place] [address] (Lab), [address] [place] [address], [address], 09/04/2024 08:48:25 albumin, serum or plasma [address] (Lab), [address] [place] [address], 14[address], 09/04/2024 08:48:25 hepatitis B DNA, quantitat anastacia, serum [address] (Lab), [address] [place] [address], 37[address], 02/14/2024 09:27:22 CBC w/ diff [address] (Lab), [address] [place] [address], 19897, 02/14/2024 09:27:23 ALT (alanine aminotran sferase), serum or plasma [address] (Lab), [address] [place] [address], 56[address], 02/14/2024 09:27:23 AST/SGOT (aspartat e aminotran sferase), serum or plasma [address] (Lab), [address] [place] [address], [address], 02/14/2024 09:27:23 CT + NG DNA, PCR, unspecifi ed specimen [address] (Lab), [address] [place] [address], [address], 02/14/2024 09:27:23 creatinin e w/ estimated GFR (eGFR), serum or plasma [address] (Lab), [address] [place] [address], 09[address], 02/14/2024 09:27:23 hepatitis C virus Ab, serum [address] (Lab), [address] [place], [address], 02/14/2024 09:27:23 RPR (rapid plasma reagin), serum [address] (Lab), [address] [place] [address], [address], 02/14/2024 09:27:23 HIV (1+2) Ab screen, serum [address] (Lab), [address] [place], [address], 02/14/2024 09:27:24 bilirubin , total, serum or plasma [address] (Lab), [address] [place] [address], 464[address], 02/14/2024 09:27:24 albumin, serum or plasma [address] (Lab), [address] [place] [address], [address], 02/14/2024 09:27:24 hepatitis B DNA, quantitat anastacia, serum [address] (Lab), [address] [place] [address], [address], 09/04/2023 16:25:25 hepatitis D virus Ab panel, serum [address] (Lab), [address] [place] [address], [address], 09/04/2023 16:25:25 CBC w/ diff [address] [place] [address] (Lab), [address] [place] [address], [address], 09/04/2023 16:25:25 CT + NG DNA, PCR, unspecifi ed specimen [address] (Lab), [address] [place] [address], 61628, 09/04/2023 16:25:26 creatinin e w/ estimated GFR (eGFR), serum or plasma [address] (Lab), [address] [place] [address], 24157, 09/04/2023 16:25:26 hepatitis C virus Ab, serum [address] [place] [address] (Lab), [address] [place] [address], 81923, 09/04/2023 16:25:26 RPR (rapid plasma reagin), serum [address] (Lab), [address] [place] [address], 28115, 09/04/2023 16:25:26 hepatitis B virus e Ag, QN, serum [address] [place] [address] (Lab), [address] [place] [address], 86[address], 09/04/2023 16:25:26 hepatitis B virus e Ab, QN, serum [address] [place] [address] (Lab), [address] [place] [address], 11034, 09/04/2023 16:25:26 hepatitis C liver status biomarker panel, serum [address] [place] [address] (Lab), [address] [place] [address], 60[address], 09/04/2023 16:25:27 BMP, serum or plasma [address] [place] [address] (Lab), [address] [place] [address], 089[address], 09/04/2023 16:25:27 hepatitis B DNA, quantitat anastacia, serum [address] (Lab), [address] [place] [address], 47[address], 07/04/2023 15:59:15 hepatitis D virus Ab panel, serum [address] (Lab), [address] [place] [address], 25277, 07/04/2023 15:59:16 CBC w/ diff [address] [place] [address] (Lab), [address] [place] [address], 514[address], 07/04/2023 15:59:16 ALT (alanine aminotran sferase), serum or plasma [address] (Lab), [address] [place] [address], 47417, 07/04/2023 15:59:16 AST/SGOT (aspartat e aminotran sferase), serum or plasma [address] (Lab), [address] [place] [address], 48692, 07/04/2023 15:59:16 CT + NG DNA, PCR, unspecifi ed specimen [address] (Lab), [address] [place] [address], 04170, 07/04/2023 15:59:16 creatinin e w/ estimated GFR (eGFR), serum or plasma [address] [place] [address] (Lab), [address] [place] [address], 53371, 07/04/2023 15:59:16 hepatitis C virus Ab, serum [address] (Lab), [address] [place] [address], 11063, 07/04/2023 15:59:17 RPR (rapid plasma reagin), serum [address] (Lab), [address] [place] [address], 72608, 07/04/2023 15:59:17 hepatitis B virus e Ag, QN, serum [address] (Lab), [address] [place] [address], 39329, 07/04/2023 15:59:17 hepatitis B virus e Ab, QN, serum [address] (Lab), [address] [place], [address], 07/04/2023 15:59:17 hepatitis C liver status biomarker panel, serum [address] (Lab), [address] [place] [address], [address], 07/04/2023 15:59:17 Referral None recorded. Procedures None recorded. Surgeries None recorded. Imaging US, abdomen - HBV. HCC SCreen; hx fatty liver; and GB adenomyom atosis per previous scan [address] (Imaging), [address] [place] [address], [address], 09/11/2024 09:03:34 US, liver - dx HBV; fatty liver: HCC screen testing [address] (Imaging), [address] [place], [address], 09/12/2023 13:31:52 Medication Orders None recorded. Patient TargetsNo targets recorded. Patient InstructionsNo instructions recorded. Reason for Referral None Reported. Results Created Date Observation Date Name Description Value Unit Range Abnormal Flag Note LastModifiedBy Organization Detail LastModifiedTime 09/20/19 24 09/18/2023 US, liver No observ ation record ed. eloy [facility] (Imaging) [address] [place] [address], [address], 09/23/2023 13:02:29 Result Notes None recorded. Problems Name Problem SNOMED Code Status Onset Date Resolution Date Notes Provider Name and Address Organization Details Recorded Time Steatosis of liver 399859681 Active 2023 John Vickers MD [address] [place] [address], [phone], LIANNE VICKERS MD [facility] 10:35:09 Adenomyomatosi s of gallbladder 240072817 Active 2023 John Vickers MD [address] [place] [address], [phone], LIANNE VICKERS MD [facility] 10:24:47 Problem Notes None recorded. Procedures Surgical History None recorded. Imaging Results Imaging Date Name Status LastModified by Organiz ation Details LastModified Time 09/18/2023 US, liver completed eloy [facility] (Imaging) [address] [place] [address], [address], 09/23/2023 13:02:29 Procedure Notes None recorded. Medical [...] Diagnosis Note 571 Ethel Rivera Main Office [address] [place] [address] 04/29/2023 12:56:09 04/30/2023 17:08:59 Chronic type B viral hepatitis 45461978 B18.1 HBV. monitor labs; no tx. no [...] reviewedav oid ETOH.incre ase water intake. 1993 John Vickers MD Main Office [address] [place] [phone] 08/27/2023 10:39:49 08/27/2023 11:01:55 Chronic type B viral hepatitis 91786467 B18.1 HBV.monito r labs; no tx. no [...] PreP availabili tyPlan of care reviewed Adult [facility] examination 198930317 Z00.00 labs ordered [id number] John Vickers MD Main Office [address] [place] [address] 09/19/2023 10:01:15 11/04/2023 13:55:01 Chronic type B viral hepatitis 99189939 B18.1 HBV.monito r labs; no tx. no [...] of care reviewed Adenomyoma tosis of gallbladder 751836263 K82.8 will see GI; referred by PCP. 31874 John Vickers MD Main Office [address] [place] [phone] 02/07/2024 09:16:44 02/07/2024 10:45:21 Chronic type B viral hepatitis 09013039 B18.1 HBV.monito r labs; no tx. no [...] of care reviewed Adenomyoma tosis of gallbladder 567053238 K82.[address] scan reports done at [place] Steatosis of liver 1007 K76.0 diet and exercise reviewedav oid ETOH.incre ase water intake.vit E suggested. 09639 John Vickers MD Main Office [address] [place] [phone] 6 08/28/2024 10:19:34 09/10/2024 15:08:10 Chronic type B viral hepatitis 87702274 B18.1 HBV.monito r labs; no tx. no [...] of care reviewed Adenomyoma tosis of gallbladder 365049895 K82.[address] [place] Steatosis of liver 1007 K76.0 diet and exercise reviewedav oid ETOH.incre ase water intake.ivy ght loss reviewedu/ s abd Health Concerns Section Related Observation LastModified by Organization Detai ls LastModified Time None Recorded Concern Status LastModified by Organization Details LastModified Time None Recorded Advance Directives Directive None Recorded Payers Encounter Date Sequence Insurance Name Policy Number Policy Sanchez Covered Member ID Sanchez Member ID Guarantor Name 04/29/2023 1 [facility] [id number] Ashley Marshall [id number] Ashley Marshall 08/27/2023 1 [facility] [id number] Ashley Marshall [id number] Ashley Marshall 08/27/2023 2 [place] [facility] Ashley Marshall [id number] Ashley Marshall 09/19/2023 1 [facility] [id number] Ashley Marshall [id number] Ashley Marshall 09/19/2023 2 [place] [facility] Marshall [id number] Ashley Marshall 02/07/2024 1 [facility] [id number] Ashley Marshall [id number] Ashley Marshall 02/07/2024 2 [place] [facility] Marshall [id number] Ashley Marshall 08/27/2024 1 [facility] [id number] Ashley Marshall [id number] Ashley Marshall 08/27/2024 2 [place] [facility] Ashley Marshall [id number] Ashley Marshall Notes Date Note Type Note Provider Name and Address Organization Details Recorded Time 04/29/2023 text/html f/u HBVTelemedic ine Visit. Pt at home in [place]; MD at office in [place]. 19 min visit. AUDIO VISITwill get labs drawn this weekhad labs done on ,3, but no HBV labs; labs ordered by PCP at [place]. HBV DNA VL 683 IU/ml; HCV neg; [...] jaundice. no leg swelling LIANNE Jimenez MD [facility] 05/08/2023 10:21:01 08/27/2023 text/html f/u HBV04/2023 [...] abdno new medical issues John Vickers MD [address] [place] [address], [phone], LIANNE VICKERS MD [facility] 08/27/2023 10:41:56 09/19/2023 text/html f/u HBV.not on t x by choice.08/28/2023 Fibrosure F0; HDV negshe was told has adenomyomatosis of GB; was present on 2022.;she will see a surgeon on 10/01/23 for gallbladder evaluation. i do not have u/s report here.no other concerns. no abd pain. no n.v.d, abdominal discomfort after she eats. no weight loss. no fever. no wkbnfrgu49/2023 HBV labs not done; ASLt/AST wnl; eGFR [...] abdno new medical issues John Vickers MD [address] [place] [address], [phone], LIANNE VICKERS MD [facility] 09/22/2023 21:33:42 02/07/2024 text/html f/u HBV.not on t x by choice.08/28/2023 Fibrosure F0; HDV neghad CT scan done in [place]. due to u/s 08/2023 that shows adenomyomatosis of GB; was present on 2022.;no other concerns. no abd pain. no n.v.d, abdominal discomfort after she eats. no weight loss. no fever. no etmeljpl86/2023 HBV labs not done; ASLt/AST wnl; eGFR [...] one male sexual partner John Vickers MD [address] [place] [address], [phone], LIANNE VICKERS MD [facility] 02/07/2024 14:52:16 08/27/2024 text/html f/u HBV.not on t x by choice.07/2024 HBV IO=297; ALT/AST wnl; eGFE>60; negative HIV and negative syphillis. neg GC/chlamydia08/28/2023 Fibrosure F0; HDV neghad u/s and CT scan done in [place]. due to u/s 08/2023 that shows adenomyomatosis of GB; was present on 2022.;no other concerns. no abd pain. no n.v.d, abdominal discomfort after she eats. no weight loss. no fever. no jaundicemed list reviewedno new meds nor OTCdenies ETOH use. denies drug useno new medical issueshas one male partner; denies sexual activityno STI sxshe reports household is vaccinated John Vickers MD [address] [place] [address], [phone], LIANNE - JOHN VICKERS MD [facility] 08/28/2024 10:34:13 OBGyn Episode No OBEpisode recorded.
--- OUTSIDE RECORDS SUMMARY | 2024-09-29 08:02 | XMS_ITS | Encounter Summary ---
Author Organization [facility] Address [address] [place] [address] Care Team Providers Care Welding Estimator Name Role Phone [place] Curran MD Primary Care Prov ider Encounter Details Date Type Department Care Team (Late st Contact Info) Description 09/23/2024 Orders Only GENERIC EXTERNAL DATA DEPARTMENT Provider, Generic External Data Social History Tobacco Use Types Packs/Day Years [...] Encounters Date Type Department Care Team ([facility] st Contact Info) Description 10/06/2024 11:15 AM EDT Telemedicine [facility] [address] [place] [address] Ebenezer Acuña MD [address] [place] [address] documented as of this encounter Procedures Procedure Name Priority Date/Time Associated Diagnosis Comments US ABDOMEN LIMITED Routine 09/24/2024 12 :38 AM EST URINALYSIS, COMPLETE, WITH REFLEX TO CULTURE Routine 09/23/2024 5:09 PM EST CBC WITH AUTO DIFFERENTIAL Routine 09/23/2024 5:09 PM EST LIPASE Routine 09/23/2024 5:09 PM EST COMPREHENSIVE METABOLIC PANEL Routine 09/23/2024 5:09 PM EST documented in this encounter Results * US Abdomen Limited (09/24/2024 12:38 AM EST) Anatomical Region Laterality Modality Abdomen Ultrasound 09/24/2024 12:3 8 AM EST Narrative 09/24/2024 12:39 AM EST ? [facility] ?[address] ?[place] [address] ? Ultrasound Report ? Signed ? Patient: Marshall,Ashley ?MR#: [id number] ?? 73 ? : 1970 ?Acct:[id number] ? Age/Sex: 53 / F ?ADM Date: 09/23/24 ? Loc: HO.ED ? Attending Dr: ? Ordering Physician: Jocelyne Schroeder MD ?? Date of Service: 09/23/24 ?? Procedure(s): US abdomen limited ?? Accession Number(s): [id number] ? cc: [place] Curran MD; Jocelyne Schroeder MD ? CLINICAL HISTORY: RUQ pain ? US abdomen limited ? Comparison: [place]/SR - US ABDOMEN COMPLETE - 09/18/23 08:55 [...] DD/ 0038 ? TD/TT: 09/24/24 0038 ? Rod Machine Operator: ? Procedure Note Gunnarmarceroscoenatalie, Image - 09/24/2024 [place] [address] Ultrasound Report Signed Patient: Ashley OlivaresMR#: [id number] 73 : 1970Acct:[id number] Age/Sex: 53 / FADM Date: 09/23/24 Loc: HO.ED Attending Dr: Ordering Physician: Jocelyne Schroeder MD Date of Service: 09/23/24 Procedure(s): US abdomen limited Accession Number(s): [id number] cc: [place] Curran MD; Jocelyne Schroeder MD CLINICAL HISTORY: RUQ pain US abdomen limited Comparison: [place]/SR - US ABDOMEN COMPLETE - 09/18/23 08:55 [...] MD in OV> 09/24/2438 DD/ TD/TT: 09/24/2437 Rod Machine Operator: us [facility] External Provider IMG US PROCEDURES Edited Result - Final * Lipase (09/23/2024 5:09 PM EST) Lipase 41 8 - 78 U/L [facility] 09/23/2024 5:09 PM EST 09/23/2024 5:12 PM EST Generic External Data Provider LAB BLOOD ORDERAB LES Final Result [facility] [address] [place] [phone] * (ABNORMAL) Comprehensive Metabolic Panel (09/23/2024 5:09 PM EST) Sodium 140 135 - 145 mmol/L [facility] Potassium 3.6 3.3 - 5.1 mmol/L [facility] Chloride 109(H) 96 - 108 mmol/L [facility] Carbon Dioxide 23 22 - 29 mmol/L [facility] Anion Gap 12 12 - 20 [facility] Urea Nitrogen (BUN) 12 9 - 16 mg/dL [facility] Creatinine, Serum 0.86 0.5 - 1.4 mg/dL [facility] Creatinine Clr Calc Pharmacy 64.1 [facility] Comment:Provided height and weight: 152.4 cm,67.585 kg.eGFR (calculated from the MDRD study equation) and eCrCl(calculated from the Cockcroft-Gault equation) are based ondifferent parameters and may not yield comparable results.If eCrCl result is absurd, please check patient'sheight/weight. Estimated Glomerular Filt Rate >60 [facility] Comment:Chronic Kidney Disea se: Estimated GFR < 60 mL/min/1.01k3Zxqqnc Kidney Disease: Estimated GFR < 15 mL/min/1.73m2 Glucose 136(H) 60 - 115 mg/dL [facility] Calcium 9.2 8.4 - 10.2 mg/dL [facility] Bilirubin, Total 0.4 0.0 - 1.0 mg/dL [facility] Aspartate Amino Transferase 29 5 - 31 U/L [facility] Alanine Aminotransferase 47(H) 0 - 31 U/L [facility] Total Protein 7.8 6.5 - 8.0 g/dL [facility] Albumin Level 4.2 3.5 - 5.0 g/dL [facility] Alkaline Phosphatase 85 39 - 117 U/L [facility] 09/23/2024 5:09 PM EST 09/23/2024 5:12 PM EST us Generic External Data Provider LAB BLOOD ORDERAB LES Final Result [facility] [address] [place] [phone] * (ABNORMAL) CBC auto differential (09/23/2024 5:09 PM EST) White Blood Count 5.5 4.8 - 10.8 X10*3/uL [facility] Red Blood Count 4.17(L) 4.20 - 5.50 X10*6/uL [facility] Hemoglobin 13.1 12.0 - 16.0 g/dl [facility] Hematocrit 37.9 37.0 - 47.0 % [facility] Mean Corpuscular Volume 90.9 80.0 - 98.0 fL [facility] Mean Corpuscular Hemoglobin 31.4 27.0 - 33.0 pg [facility] Mean Corpuscular HGB Conc 34.6 31.0 - 35.0 g/dl [facility] Red Cell Distribution Width 12.7 11.0 - 16.0 % [facility] Platelet Count 276 160 - 400 X10*3/uL [facility] Mean Platelet Volume 9.9 9.4 - 12.3 fL [facility] Neutrophils Percent Auto 50.5 45 - 73 % [facility] Imm Gran Pct Auto 0.5(H) 0.0 - 0.4 % [facility] Lymphocytes Percent Auto 40.2(H) 20 - 40 % [facility] Monocytes Percent Auto 5.8 2 - 11 % [facility] Eosinophils Percent Auto 2.5 0 - 4 % [facility] Basophils Percent Auto 0.5 0 - 2 % [facility] NRBC Pct Auto 0.0 0.0 - 0.2 /100WBC [facility] Neutrophils Absolute Auto 2.8 2.0 - 8.3 x10*3/uL [facility] Imm Gran Abs Auto 0.03 0.00 - 0.03 X10*3/uL [facility] Lymphocytes Absolute Auto 2.2 1.2 - 4.9 X10*3/uL [facility] Monocytes Absolute Auto 0.3 0.1 - 1.2 X10*3/uL [facility] Eosinophils Absolute Auto 0.1 0.0 - 0.4 X10*3/uL [facility] Basophils Absolute Auto 0.0 0.0 - 0.2 X10*3/uL [facility] NRBC Abs Auto 0.000 0.0 - 0.012 X10*3/uL [facility] 09/23/2024 5:09 PM EST 09/23/2024 5:12 PM EST us Generic External Data Provider LAB BLOOD ORDERAB LES Final Result [facility] [address] [place] [address] [phone] * Urinalysis, Complete, with Reflex to Culture (09/23/2024 5:09 PM EST) Color Urine Yellow [facility] Appearance Urine Clear [facility] PH 6.0 5.0 - 9.0 [facility] Glucose Urine UA Negative Negative mg/dL [facility] Urine Blood Negative Negative [facility] Specific [place] - Urine <=1.005 1.005 - 1.025 [facility] Urine Protein Negative Neg-Trace mg/dL [facility] Urine Ketones Negative Negative mg/dL [facility] Nitrite Urine Negative Negative [facility] Leukocyte Esterase Urine Negative Negative [facility] RBC Urine 0-2 0 - 2 /HPF [facility] Urine WBC 0-5 0 - 5 /HPF [facility] Urine Squamous Epithelial Cell 0-2 0 - 2 /HPF [facility] Urine Bacteria None Seen None Seen [facility] Hyaline Casts, Urine 0-2 0 - 2 /LPF [facility] 09/23/2024 5:09 PM EST 09/23/2024 5:12 PM EST Narrative [facility] - 09/23/2024 5:35 PM EST [id number], Clean Catch us Generic External Data Provider LAB URINE ORDERAB LES Final Result [facility] [address] [place] [address] [phone] documented in this encounter Visit Diagnoses Not on filedocumented in this encounter Additional Health Concerns Assessment Noted Time PHQ-9 Depression Total Score: 8 05/25/20 24 8:54 AM EDT documented as of this encounter Care Teams Welding Estimator Relationship Specialty Start Date End Date [place] Curran MD [address] [place] [address] PCP - General Internal Medicine 08/18/24 documented as of this encounter
--- OUTSIDE RECORDS SUMMARY | 2024-09-29 08:02 | XMS_ITS | Encounter Summary ---
Author Organization [facility] Address [address] [facility] 7t [place] [address] [address] Team Prov[address] Care Ct Scan Special Procedures Technologist Name Role Phone Ashlee Meza MD Primary Care Provider [phone] Morgan Curran MD Primary Care Prov ider Reason for Visit * Reason Comments Med Refill Encounter Details Date Type Department Care Team ([facility] Contact Info) Description 08/05/2023 Refill [facility] MED & PEDS [address] [place] [address] Ashlee Meza MD 505 [place] [address] Social History Tobacco Use Types Packs/Day Years [...] Upcoming Encounters Date Type Department Care Team ([facility] st Contact Info) Description 10/06/2024 11:15 AM EDT Telemedicine [facility] MED & PEDS [address] [place] [address] Ebenezer Acuña MD 505 [place] [address] documented as of this encounter Visit Diagnoses Not on filedocumented in this encounter Additional Health Concerns Assessment Noted Time PHQ-9 Depression Total Score: 6 04/22/20 23 9:18 AM EDT documented as of this encounter Care Teams Ct Scan Special Procedures Technologist Relationship Specialty Start Date End Date Ashlee Meza MD [address] [place] [address] PCP - General Family Medicine 03/28/20 08/17/24 Morgan Curran MD [address] [place] [address] PCP - General Internal Medicine 08/18/24 documented as of this encounter
--- OUTSIDE RECORDS SUMMARY | 2024-09-29 08:02 | XMS_ITS | Encounter Summary ---
Author Organization [employer] Address [address] [place] [address] Care Team Providers Care Pastry Supervisor Name Role Phone Morgan Curran MD Primary Care Prov ider Reason for Visit * Reason Onset Date Comments No Show 09/28/2024 Encounter Details Date Type Department Care Team ([facility] st Contact Info) Description 09/28/2024 Telephone [facility] MED & PEDS [address] [place], [place] [phone] Morgan Curran MD 505 [place] [address] No Show Social History Tobacco Use Types Packs/Day Years [...] the past 12 months, has t he [employer], gas, oil or water [employer] threatened to shut off services in your [...] encounter Miscellaneous Notes * Telephone Encounter - Sarah Holder RN - 09/28/2024 2:56 PM EST New appointment scheduled for 10/06/24 as telehealth visit. * Telephone Encounter - Ja Montero - 09/28/2024 2:22 PM EST No Show 09/28/24 for RUQ pain, bloating. documented in this encounter Plan of Treatment Upcoming Encounters Date Type Department Care Team ([facility] st Contact Info) Description 10/06/2024 11:15 AM EDT Telemedicine [facility] MED & PEDS [address] [place], [place] [phone] Ebenezer Acuña MD [address] [place], [place] [phone] documented as of this encounter Visit Diagnoses Not on filedocumented in this encounter Additional Health Concerns Assessment Noted Time PHQ-9 Depression Total Score: 8 05/25/20 24 8:54 AM EDT documented as of this encounter Care Teams Pastry Supervisor Relationship Specialty Start Date End Date Morgan Curran MD [address] [place] [id number] PCP - General Internal Medicine 08/18/24 documented as of this encounter
--- OUTSIDE RECORDS SUMMARY | 2024-09-29 08:02 | XMS_ITS | Encounter Summary ---
Author Organization [employer] [facility] Address 75 [facility] 7t [place] [address] Care Team Providers Care Optometrist President/Practice Owner Name Role Phone Ashlee Meza MD Primary Care Provider [phone] Morgan Curran MD Primary Care Prov ider Reason for Visit * Reason Onset Date Comments Nurse Triage 08/12/2024 Encounter Details Date Type Department Care Team ([facility] st Contact Info) Description 08/12/2024 Telephone [facility] MED[facility]INE [address] [place] [address] Ashlee Meza MD 505 [place] [address] Nurse Triage Social History Tobacco Use Types [...] the past 12 months, has t he [employer], gas, oil or water [employer] threatened to shut off services in your [...] 08/12/2024 3:04 PM EST Triage call with [facility] [place] [id number]. Pt reports can speak French. Triage continued in czech at this time. Pt reports frequency , [...] The caller accepted this outcome. Contact pt [phone] documented in this encounter Plan of Treatment Upcoming Encounters Date Type Department Care Team (Late st Contact Info) Description 10/06/2024 11:15 AM EDT Telemedicine [facility] MED & PEDS 505 [place] [address] Ebenezer Acuña MD 505 [place] [address] documented as of this encounter Visit Diagnoses Not on filedocumented in this encounter Additional Health Concerns Assessment Noted Time PHQ-9 Depression Total Score: 8 05/25/20 24 8:54 AM EDT documented as of this encounter Care Teams Optometrist President/Practice Owner Relationship Specialty Start Date End Date Ahslee Meza MD [address] [place] [id number] PCP - General Family Medicine 03/28/20 08/17/24 Morgan Curran MD 505 [place] [address] PCP - General Internal Medicine 08/18/24 documented as of this encounter
--- OUTSIDE RECORDS SUMMARY | 2024-09-29 08:02 | XMS_ITS | Encounter Summary ---
Author Organization [employer] [facility] Address [address] [place] [address] [place], [place] [address] Care Team Providers Care Cartography Teacher Name Role Phone Morgan Curran MD Primary Care Prov ider Reason for Referral * Consultation (Urgent) - Pending Review Specialty Diagnoses / Procedures Referred By Maya schrader Referred To Contact Behavioral Health Diagnoses Adenomyomatosis of gallbladder Right upper quadrant pain Ebenezer Acuña MD 505 [place] [address] Phone: tel: fax: Referral ID Status Reason Start Date Expiration Date Visits Requested Visits Authorized [id number] Pending Review Specialty Services Required 09/23/2024 09/23/2025 1 1 Encounter Details Date Type Department Care Team (Latest Contact Info) Description 09/23/2024 3:20 PM EST Office Visit [facility] MED & PEDS 505 [place] [address] Ebenezer Acuña MD 505 [place] [address] Adenomyomatosis of gallbladder (Primary Dx); Right upper quadrant pain Social History Tobacco Use Types Packs/Day [...] Mass Index 28.99 09/23/2024 2:52 PM EST documented in this encounter Progress Notes * Ebenezer Acuña MD - 09/23/2024 3:20 PM EST Subjective Patient ID: Ashley Olivares is a 53 y.o. female who presents for No chief complaint on file.. HPI Note from triage reviewed: Pt reports abdominal pain, above umbilicus for last few days. Pt reports one episode of diarrhea yesterday but, nothing more. Neg for vomiting, fever or urinary symptoms. Pt reports this pain comes and goes but, is not ending. Patient records reviewed. Had an abdominal ultrasound done in August 2023 showing adenomyomatosis. Was evaluated by surgery and the decision was not to intervene at that time. Patient reports having severe right upper quadrant abdominal pain associated with bloating and subjective fever that started 2 days ago. She is getting progressively worse. The abdominal pain was associated with 1 episode of diarrhea. Patient Active Problem List Diagnosis Hypothyroidism Allergic rhinitis Asthma Chronic type B viral hepatitis (CMS/HCC) Deficiency of wbiifmg-2-nerxyqnxg dehydrogenase Diverticular disease Dysphonia Mixed anxiety and depressive disorder Overweight Spasm of cervical paraspinous muscle GERD (gastroesophageal reflux disease) Macromastia Immunization due Hypertension Alopecia Dizziness Polyuria Left toe thickening and loose Adenomyomatosis of gallbladder Steatosis of liver White coat syndrome with hypertension Bipolar affective disorder in remission (CMS/HCC) Cervical cancer screening A vague feeling of discomfort Current Outpatient Medications on File Prior to Visit Medication Sig Dispense Refill Acetaminophen Extra Strength 500 MG tablet TAKE ONE TABLET EVERY 6 HOURS NEEDED (PAIN) 50 tablet3 albuterol (2.5 MG/3ML) 0.083% nebulizer solution INHALE ONE AMPULE USING A NEBULIZER FOUR TIMES DAILY NEEDED 90 mL 3 albuterol 108 (90 Base) MCG/ACT inhaler INHALE TWO PUFFS EVERY 4 HOURS NEEDED FOR WHEEZING 18 g 4 amLODIPine (Norvasc) 5 MG tablet Take 1 tablet (5 mg) by mouth in the morning. 30 tablet 11 Arnuity Ellipta 100 MCG/ACT inhaler INHALE ONE PUFF EVERY MORNING, RINSE MOUTH AFTER USE 30 each 5 azithromycin (Zithromax Z-Elmer) 250 MG tablet Take 2 tabs day 1 and then 1 tab daily to finish 6 tablet 0 Blood Pressure kit 1 Units Once per day. 1 kit 0 clonazePAM (KlonoPIN) 1 MG tablet Take 1 tablet (1 mg) by mouth 2 times daily. 56 tablet 1 Dextromethorphan-guaiFENesin (Mucinex DM) 30-600 MG tablet sustained-release 12 hour Use 1 tab TID 28 tablet 0 esomeprazole (NexIUM) [address] capsule Take 1 capsule (20 mg) by mouth before breakfast. Do not open capsule. 30 capsule 11 famotidine (Pepcid) 20 MG tablet TAKE ONE TABLET BY MOUTH AT BEDTIME 90 tablet 1 hydrOXYzine HCl (Atarax) 25 MG tablet TAKE ONE TABLET EVERY 8 HOURS NEEDED FOR ANXIETY 90 tablet3 levothyroxine (Synthroid, Levoxyl) 50 MCG tablet TAKE ONE TABLET BY MOUTH EVERY MORNING BEFORE BREAKFAST 90 tablet 1 levothyroxine (Synthroid, Levoxyl) 75 MCG tablet TAKE ONE TABLET EVERY MORNING SATURDAY ,, SATURDAY, SATURDAY 48 tablet 1 loratadine (Claritin) 10 MG tablet TAKE ONE TABLET BY MOUTH EVERY DAY FOR ALLERGIES 90 tablet 1 mometasone (Nasonex) 50 MCG/ACT nasal spray Administer 2 sprays into each nostril Once per day. 17 g 2 montelukast (Singulair) 10 MG tablet TAKE ONE TABLET EVERY EVENING FOR ALLERGY 90 tablet 2 [] oseltamivir (Tamiflu) 75 MG capsule Take 1 capsule (75 mg) by mouth 2 times daily for 5 days. 10 capsule 0 pantoprazole (ProtoNix) 40 MG EC tablet TAKE ONE TABLET BY MOUTH EVERY MORNING (STOMACH) 90 tablet 1 PARoxetine (Paxil) 20 MG tablet Take 1 tablet (20 mg) by mouth in the morning. 90 tablet 1 [] predniSONE (Deltasone) 20 MG tablet Take 1 tablet (20 mg) by mouth Once per day for 5 days. 5 tablet 0 simethicone (Mylicon) 125 MG chewable tablet CHEW ONE TABLET THREE OR FOUR TIMES DAILY DAILY NEEDED topiramate (Topamax) 25 MG tablet TAKE ONE TABLET BY MOUTH EVERY TWELVE HOURS 180 tablet 1 No current facility-administered medications on file prior to visit. Allergies Allergen Reactions Amoxicillin Other reaction(s): Itching,SOB Aspirin Swelling Glutaral Other reaction(s): Avoid Sulfa, Dapsone, Nitrofu Ibuprofen Other reaction(s): difficulty breathing Review of Systems Constitutional: Negative for appetite change and chills. Eyes: Negative for pain and itching. Respiratory: Negative for cough and choking. Gastrointestinal: Positive for abdominal pain and diarrhea. Genitourinary: Negative for decreased urine volume, vaginal bleeding and vaginal discharge. Objective BP (!) 150/86 (BP Location: Right arm, Patient Position: Sitting, BP Cuff Size: Large adult) Pulse 84 Temp 97.4 ??F (36.3 ??C) (Oral) Resp 20 Ht 5' 0.24 (1.53 m) Wt 149 lb 9.6 oz (67.9 kg) SpO2 98% BMI 28.99 kg/m?? Physical Exam Constitutional: General: She is not in acute distress. Appearance: Normal appearance. She is not ill-appearing, toxic-appearing or diaphoretic. Cardiovascular: Rate and Rhythm: Normal rate. Pulmonary: Effort: Pulmonary effort is normal. Abdominal: Tenderness: There is abdominal tenderness. Neurological: General: No focal deficit present. Mental Status: She is alert. Psychiatric: Mood and Affect: Mood normal. Assessment/Plan Diagnoses and all orders for this visit: Adenomyomatosis of gallbladder - Referral to Hospitalization Screening; Future Right upper quadrant pain - Referral to Hospitalization Screening; Future documented in this encounter Plan of Treatment Upcoming Encounters Date Type Department Care Team (Late st Contact Info) Description 10/06/2024 11:15 AM EDT Telemedicine [facility] MED & PEDS [address] [place] [address] Ebenezer Acuña MD [address] [place] [address] Scheduled Referrals Name Type Priority Associated Diagnoses Order Schedule Referral to Hospitalization Screening Outpatient Referral Urgent Adenomyomatosis of gallbladder Right upper quadrant pain Expected: 09/23/2024 (Approximate), Expires: 09/23/2025 documented as of this encounter Visit Diagnoses Diagnosis Adenomyomatosis of gallbladder- Primary Right upper quadrant pain Abdominal pain, right upper quadrant documented in this encounter Additional Health Concerns Assessment Noted Time PHQ-9 Depression Total Score: 8 05/25/20 24 8:54 AM EDT documented as of this encounter Care Teams Cartography Teacher Relationship Specialty Start Date End Date Morgan Curran MD [address] [place] [address] PCP - General Internal Medicine 08/18/24 documented as of this encounter
--- OUTSIDE RECORDS SUMMARY | 2024-09-29 08:02 | XMS_ITS | Encounter Summary ---
Author Organization [employer] [facility] Address [address] [place] [address], [place] [address] Care Team Providers Care Tennis Camp Instructor Name Role Phone Ashlee Meza MD Primary Care Provider [phone] Morgan Curran MD Primary Care Prov ider Encounter Details Date Type Department Care Team (Late Contact Info) Description 08/07/2022 Telephone [facility] MED & PEDS [address] [place] [address] Ashlee Meza MD 505 [place] [address] Social History Tobacco Use Types Packs/Day Years [...] Encounters Date Type Department Care Team (Late Contact Info) Description 10/06/2024 11:15 AM EDT Telemedicine [facility] MED & PEDS [address] [place] [address] Ebenezer Acuña MD [address] [place] [address] documented as of this encounter Visit Diagnoses Not on filedocumented in this encounter Care Teams Tennis Camp Instructor Relationship Specialty Start Date End Date Ashlee Meza MD [address] [place] [address] PCP - General Family Medicine 03/28/20 08/17/24 Morgan Curran MD [address] [place] [address] PCP - General Internal Medicine 08/18/24 documented as of this encounter
--- OUTSIDE RECORDS SUMMARY | 2024-09-29 08:02 | XMS_ITS | Encounter Summary ---
Author Organization [employer] Address 75 [facility] 7 [place] [address] Care Team Providers Care Line Up Worker Name Role Phone Morgan Curran MD Primary Care Prov ider Reason for Visit * Reason Onset Date Comments Switch appointment 09/28/2024 Encounter Details Date Type Department Care Team (Late st Contact Info) Description 09/28/2024 Telephone [facility] MEDICINE [address] [place] [address] Morgan Curran MD [address] [place] [address] Switch appointment Social History Tobacco Use Types Packs/Day Years [...] the past 12 months, has t he [employer], gas, oil or water company threatened to [...] Encounter - Sarah Holder RN - 09/28/2024 9:29 AM EST TC to patient. Patient states she is feeling better. She stated she had gone to the ER and they didn't do anything for me. They said everything was fine. Patient does confirm pain in abdomen occasionally. Patient was offered in-person office visit, but she refused stating she only wants to do a telehealth visit. Telehealth visit scheduled. Patient will call with any concerns or questions. * Telephone Encounter - Tammy Huizar - 09/28/2024 8:16 AM EST Tc from pt requesting switch appt. Appt Sick onsite today at 10:15am with Arianne. NOTES: (RUQ pain, bloating. seen clinic on 09/23 and in the ER 09/23. notes in record. nofever, vomiting, orsevere pain.) documented in this encounter Plan of Treatment Upcoming Encounters Date Type Department Care Team (Late st Contact Info) Description 10/06/2024 11:15 AM EDT Telemedicine [facility] MED & PEDS [address] [place] [address] Ebenezer Acuña MD [address] [place] [address] documented as of this encounter Visit Diagnoses Not on filedocumented in this encounter Additional Health Concerns Assessment Noted Time PHQ-9 Depression Total Score: 8 05/25/20 24 8:54 AM EDT documented as of this encounter Care Teams Line Up Worker Relationship Specialty Start Date End Date Morgan Curran MD [address] [place] [address] PCP - General Internal Medicine 08/18/24 documented as of this encounter
--- OUTSIDE RECORDS SUMMARY | 2024-09-29 08:02 | XMS_ITS | Encounter Summary ---
Author Organization [employer] Address [address] [place] [address] Care Team Providers Care Cane Flume Watchman Name Role Phone Morgan Curran MD Primary Care Prov ider Reason for Visit * Reason Onset Date Comments ER Follow-up 09/25/2024 Encounter Details Date Type Department Care Team ([facility] st Contact Info) Description 09/25/2024 Telephone [facility] CHC MED & PEDS [address] [place], [place] [phone] Morgan Curran MD [address] [place] [address] ER Follow-up Social History Tobacco Use Types Packs/Day Years [...] the past 12 months, has t he [employer], gas, oil or water [employer] threatened to shut off services in your [...] encounter Miscellaneous Notes * Telephone Encounter - Rhonda Robin RN - 09/25/2024 2:21 PM EST called pt to triage, spoke to pt. pt states seen in the clinic on 09/23 and in the ER on 09/23 for RUQ pain. reviewed the ER records and nothing acute was found. pt is encouraged to follow up with PCP office and with the surgeon. pt denies fevers, current severe pain, vomiting, diarrhea, or other associated symptoms. given appt Saturday with [facility] provider at 10:15 for exam and recheck. advised home care: rest, fluids, monitor symptoms, and call back as needed. pt understands and agrees with plan. insurance verified. Protocol Used: Abdominal Pain - Upper (Adult) Protocol-Based Disposition: See in Office or Video Visit Today or Tomorrow Video visit offer not recorded Positive Triage Question: * Moderate pain that comes and goes (cramps) lasts > 24 hours * All higher-acuity triage questions were negative Care Advice Discussed: * Reassurance and Education - Stomach Pain * Antacid Medicine * Drink Clear Fluids * Diet * Avoid Aspirin and NSAIDs * Stop Smoking * Reasons To Call Back - Severe pain present over 1 hour - Constant pain present over 2 hours - Moderate pains come and go for more than 24 hours - Mild pains come and go for more than 72 hours - You become worse * Telephone Encounter - Andreina Ogden - 09/25/2024 1:23 PM EST Pt requesting f/u stated she came in to [facility] for appt on 09/23/24 and sent pt to hospital, pt was[facility] documented in this encounter Plan of Treatment Upcoming Encounters Date Type Department Care Team (Late st Contact Info) Description 10/06/2024 11:15 AM EDT Telemedicine [facility] MED & PEDS [address] [place] [address] Ebenezer Acuña MD [address] [place] [address] documented as of this encounter Visit Diagnoses Not on filedocumented in this encounter Additional Health Concerns Assessment Noted Time PHQ-9 Depression Total Score: 8 05/25/20 24 8:54 AM EDT documented as of this encounter Care Teams Cane Flume Watchman Relationship Specialty Start Date End Date Morgan Curran MD [address] [place] [address] PCP - General Internal Medicine 08/18/24 documented as of this encounter
--- OUTSIDE RECORDS SUMMARY | 2024-09-29 08:02 | XMS_ITS | Encounter Summary ---
Author Organization [employer] Address [address] [place] [address] Care Team Providers Care Program Director Air Talent Name Role Phone Morgan Curran MD Primary Care Prov ider Reason for Visit * Reason Onset Date Comments ER Follow-up 09/24/2024 Encounter Details Date Type Department Care Team ([facility] st Contact Info) Description 09/24/2024 Telephone [facility] CHC MED & PEDS [address] [place], [place] [phone] Morgan Curran MD [address] [place] [address] ER Follow-up Social History Tobacco Use Types [...] encounter Miscellaneous Notes * Telephone Encounter - Sandy Barnes RN - 09/24/2024 12:04 PM EST TC to pt using shaper operator services to schedule ER follow up. No answer. Voicemail left instructing pt to return call to office. * Telephone Encounter - Isaura Torres - 09/24/2024 11:43 AM EST Patient calling to report ED visit on : Date: 09/23/24 Hospital: [facility] Seen for: abdominal pain Symptomatic No *if yes message should go to Triage Patient advised will forward to team nurse for follow up Pt states US was done and something showed up but was advised to f/u with pcp . documented in this encounter Plan of Treatment Upcoming Encounters Date Type Department Care Team (Late st Contact Info) Description 10/06/2024 11:15 AM EDT Telemedicine [facility] MED & PEDS [address] [place] [address] Ebenezer Acuña MD [address] [place] [address] documented as of this encounter Visit Diagnoses Not on filedocumented in this encounter Additional Health Concerns Assessment Noted Time PHQ-9 Depression Total Score: 8 05/25/20 8:54 AM EDT documented as of this encounter Care Teams Program Director Air Tal[employer] Relationship Specialty Start Date End Date Morgan Curran MD [address] [place] [address] PCP - General Internal Medicine 08/18/24 documented as of this encounter
--- OUTSIDE RECORDS SUMMARY | 2024-09-29 08:02 | XMS_ITS | Encounter Summary ---
Author Organization [facility] Address 75 [facility] 7t [place] [address] Care Team Providers Care Video Rental Clerk Name Role Phone Ashlee Meza MD Primary Care Provider [phone] Morgan Curran MD Primary Care Prov ider Reason for Visit * Reason Comments Med Refill Encounter Details Date Type Department Care Team ([facility] Contact Info) Description 05/21/2023 Refill [facility] MED & PEDS [address] [place] [address] Ashlee Meza MD 505 [place] [address] Social History Tobacco Use Types Packs/Day Years [...] Upcoming Encounters Date Type Department Care Team ([facility] st Contact Info) Description 10/06/2024 11:15 AM EDT Telemedicine [facility] MED & PEDS [address] [place] [address] Ebenezer Acuña MD [address] [place] [address] documented as of this encounter Visit Diagnoses Not on filedocumented in this encounter Additional Health Concerns Assessment Noted Time PHQ-9 Depression Total Score: 6 04/22/20 23 9:18 AM EDT documented as of this encounter Care Teams Video Rental Clerk Relationship Specialty Start Date End Date Ashlee Meza MD [address] [place] [address] PCP - General Family Medicine 03/28/20 08/17/24 Morgan Curran MD [address] [place] [address] PCP - General Internal Medicine 08/18/24 documented as of this encounter
--- OUTSIDE RECORDS SUMMARY | 2024-09-29 08:02 | XMS_ITS | Encounter Summary ---
Author Organization [employer] Address [address] [place] [address] Care Team Providers Care Annealing Furnace Operator Name Role Phone Morgan Curran MD Primary Care Prov ider Reason for Visit * Reason Onset Date Comments Med Refill 09/15/2024 Encounter Details Date Type Department Care Team ([facility] st Contact Info) Description 09/15/2024 Refill [facility] MED & PEDS [address] [place] [address] Morgan Curran MD [address] [place] [address] Social History Tobacco Use Types Packs/Day Years [...] 10/06/2024 11:15 AM EDT Telemedicine [facility] MED & PEDS [address] [place] [address] Ebenezer Aucña MD [address] [place] [address] documented as of this encounter Visit Diagnoses Not on filedocumented in this encounter Additional Health Concerns Assessment Noted Time PHQ-9 Depression Total Score: 8 05/25/20 24 8:54 AM EDT documented as of this encounter Care Teams Annealing Furnace Operator Relationship Specialty Start Date End Date Morgan Curran MD [address] [place] [address] PCP - General Internal Medicine 08/18/24 documented as of this encounter
--- OUTSIDE RECORDS SUMMARY | 2024-09-29 08:02 | XMS_ITS | Encounter Summary ---
Author Organization [employer] Address [address] [place] [address] Care Team Providers Care Mushroom Growth Media Mixer Name Role Phone Morgan Curran MD Primary Care Prov ider Reason for Visit * Reason Onset Date Comments Nurse Triage 09/23/2024 Encounter Details Date Type Department Care Team ([facility] st Contact Info) Description 09/23/2024 Telephone [facility] MED & PEDS [address] [place], [place] [phone] Morgan Curran MD [address] [place] [address] Nurse Triage Social History Tobacco Use Types [...] the past 12 months, has t he [employer], gas, oil or water [employer] threatened to shut off services in your [...] Telephone Encounter - Yuli Carcamo RN - 09/23/2024 2:04 PM EST Triage call with [facility] Visual Merchandising Specialist [place] [id number] Alberto Pt reports abdominal pain, above umbilicus for last few days. Pt reports one episode of diarrhea yesterday but, nothing more. Neg for vomiting, fever or urinary symptoms. Pt reports this pain comes and goes but, is not ending. Pt is not . [facility] apt [facility] today at 320[facility]. Pt agrees with disposition and insurance is verified as active prior to booking. Protocol Used: Abdominal Pain - Upper (Adult) Protocol-Based Disposition: See in Office or Video Visit Today or Tomorrow Video visit not offered Positive Triage Question: * Moderate pain that comes and goes (cramps) lasts > 24 hours * All higher-acuity triage questions were negative Care Advice Discussed: * Reassurance and Education - Stomach Pain * Drink Clear Fluids * Reasons To Call Back - Severe pain present over 1 hour - Constant pain present over 2 hours - Moderate pains come and go for more than 24 hours - Mild pains come and go for more than 72 hours - You become worse * Telephone Encounter - Isaura Torres - 09/23/2024 1:22 PM EST Symptom: Abdominal Pain - Female - Not Outcome: Schedule an urgent appointment (within 4 hours) or talk to a nurse or provider soon Reason: Started within the past 3 days The caller accepted this outcome. documented in this encounter Plan of Treatment Upcoming Encounters Date Type Department Care Team (Late st Contact Info) Description 10/06/2024 11:15 AM EDT Telemedicine [facility] MED & PEDS [address] [place] [address] Ebenezer Acuña MD [address] [place] [address] documented as of this encounter Visit Diagnoses Not on filedocumented in this encounter Additional Health Concerns Assessment Noted Time PHQ-9 Depression Total Score: 8 05/25/20 24 8:54 AM EDT documented as of this encounter Care Teams Mushroom Growth Media Mixer Relationship Specialty Start Date End Date Morgan Curran MD [address] [place] [address] PCP - General Internal Medicine 08/18/24 documented as of this encounter
--- OUTSIDE RECORDS SUMMARY | 2024-09-29 08:02 | XMS_ITS | Encounter Summary ---
Author Organization [employer] [facility] Address [address] [facility] 7[address] [place] [address] Care Team Providers Care Seam Presser Name Role Phone Ashlee Meza MD Primary Care Provider [phone] Morgan Curran MD Primary Care Prov ider Reason for Visit * Reason Comments Med Refill Encounter Details Date Type Department Care Team ([facility] Contact Info) Description 03/12/2024 Refill [facility] MED [facility] PEDS [address] [place] [address] Ashlee Meza MD [address] [place] [address] Social History Tobacco Use Types Packs/Day Years [...] Description 10/06/2024 11:15 AM EDT Telemedicine [facility] MED & PEDS [address] [place] [address] Ebenezer Acuña MD [address] [place] [address] documented as of this encounter Visit Diagnoses Not on filedocumented in this encounter Additional Health Concerns Assessment Noted Time PHQ-9 Depression Total Score: 6 04/22/20 23 9:18 AM EDT documented as of this encounter Care Teams Seam Presser Relationship Specialty Start Date End Date Ashlee Meza MD [address] [place] [id number] PCP - General Family Medicine 03/28/20 08/17/24 Morgan Curran MD [address] [place] [address] PCP - General Internal Medicine 08/18/24 documented as of this encounter
--- OUTSIDE RECORDS SUMMARY | 2024-09-29 08:02 | XMS_ITS | Encounter Summary ---
Author Organization [employer] Address [address] [facility] 7t [place] [address] Care Team Providers Care Gas Engine Mechanic Name Role Phone Morgan Curran MD Primary Care Prov ider Encounter Details Date Type Department Care Team (Latest Contact Info) Description 09/23/2024 Travel Social History Tobacco Use Types Packs/Day [...] Upcoming Encounters Date Type Department Care Team ([facility] st Contact Info) Description 10/06/2024 11:15 AM EDT Telemedicine [facility] MED & PEDS [address] [place] [address] Ebenezer Acuña MD [address] [place] [address] documented as of this encounter Visit Diagnoses Not on filedocumented in this encounter Additional Health Concerns Assessment Noted Time PHQ-9 Depression Total Score: 8 05/25/20 24 8:54 AM EDT documented as of this encounter Care Teams Gas Engine Mechanic Relationship Specialty Start Date End Date Morgan Curran MD [address] [place] [address] PCP - General Internal Medicine 08/18/24 documented as of this encounter
== END 2024-09-29 07:59 | disposition home or self-care (01) ==
LOC: HO.US 07:58
PROVIDERS: PCP Family Medicine; Visit Provider Internal Medicine Infectious Disease
DX: B18.1 Chronic viral hepatitis B without delta-agent (principal)
CPT/HCPCS: 99212

== ENCOUNTER 2024-09-29 13:38 | Outpatient (AMB) | payer MEDICAID, SELFPAY ==
--- NOTE | 2024-09-29 13:45 | MHC.OFFVIS ---
Vital Signs 09/29/24 13:57 Height 5 ft Weight 152 lb BMI 29.7 BP 138/80 Blood Pressure Location Lt brachial Position Sitting Pulse 85 Intake Visit Reasons: gallbladder Intake Note: Patient is seen in office for ER follow up visit, following abdominal pain. Pt c/o: continued abdominal pain, nausea, vomit, diarrhea, worse with every meal ED/CT:09/24/24 Industrial Twisting Machine Operator Required: Yes Industrial Twisting Machine Operator Language: Joinery Patternmaker Services: Industrial Twisting Machine Operator Present Industrial Twisting Machine Operator Name: Bri GOLDSTEIN Information Interpreted: non-clinical & clinical Communication Engineer: Communication Engineer Present Accompanied by: Self / Same As Patient Allergies aspirin [ASPIRIN] Allergy (Severe, Verified 09/29/24 13:56) SWELLING ibuprofen [From Motrin] Allergy (Mild, Verified 09/29/24 13:56) SWELLING lactose Allergy (Mild, Uncoded 09/29/24 13:56) Diarrhea HPI Comments Details: 53-year-old female patient returning for re-evaluation of abdominal pain in the right upper quadrant. She was previously evaluated with ultrasound of the abdomen which revealed adenomyosis of the gallbladder wall. Subsequent follow-up ultrasound did not reveal any evidence of gallbladder polyps. The patient continues to complain of abdominal pain in the right upper quadrant radiating to the back. The pain seems to increase with fatty food intake. Denies nausea, vomiting, fever or chills. Previous evaluation with [facility] HIDA scan revealed a normal filling of the gallbladder and normal ejection fraction. She continues to have symptoms consistent with biliary colic. [facility] Medical History Hepatitis B Hypothyroidism History of back pain Anemia Hx of migraines Anxiety Depression Seasonal allergies Asthma History of palpitations HTN (hypertension) History of colon polyps Thyroid condition Tubular adenoma Acid reflux Surgical History History of esophagogastroduodenoscopy (EGD) History of tubal ligation History of nasal septoplasty Hx of bilateral breast reduction surgery History of colonoscopy Family History Father Family history of high blood pressure Hx of type 1 diabetes mellitus Mother No problems noted. Social History Household Members: None Alcohol intake: never Patient Tobacco Use Status: Never used Tobacco Review of Systems Const All systems reviewed & are unremarkable except as noted in HPI and below Denies chills, Denies fever(s) and Denies poor appetite Card Denies chest pain, Denies irregular heart rhythm, Denies palpitations and Denies dyspnea Resp Denies cough, Denies excessive phlegm production and Denies dyspnea GI Reports abdominal pain, Reports bloating, Denies change in bowel habits, Denies constipation, Denies heartburn, Denies diarrhea, Denies nausea and Denies vomiting Denies urinary frequency Musc Denies back pain and Denies muscle weakness Endo Denies palpitations Kwasi/Lymph Denies lymphadenopathy Physical Exam Vital Signs: Last Vital Signs Pulse 85 09/29/24 13:57 BP 138/80 09/29/24 13:57 BMI result Body Mass Index 29.7 Const General: cooperative and no acute distress Nutritional Appearance: well nourished Orientation/consciousness: patient oriented x3 Limitations: no limitations HEENT Head: Yes normocephalic and Yes atraumatic Ears: hearing grossly normal bilaterally Resp Effort & Inspection: normal respiratory effort, no audible wheezes, no cough and no respiratory distress Cardio Jugular venous distension: no JVD GI Inspection: Yes normal to inspection Palpation (GI): Soft to palpation, Tenderness to palpation present (GI) in the RUQ; Holt's sign negative, no guarding and not rigid Skin Other: Warm, dry, no rash General skin exam: no rashes or lesions noted Neuro General: patient oriented x3 Extrem General: Yes no clubbing, cyanosis or edema Assessment & Plan Assessment & Plan (1) Biliary colic: Code(s): K80.50 - Calculus of bile duct without cholangitis or cholecystitis without obstruction Category: Medical Plan Patient returns with continued abdominal pain in the right upper quadrant associated with fatty food intake. Previous workup was negative however her symptoms do appear consistent with chronic cholecystitis or biliary colic. I recommended repeating the HIDA scan 1 more time. If this remains normal no surgical intervention is recommended. Orders: Orders NM hepatobiliary w pharm Today K80.50 - Calculus of bile duct without cholangitis or cholecystitis without obstruction Coding Level of Care Code Est Pt Level 3 (94091) Diagnoses Biliary colic K80.50
[2024-09-29 13:57] VITALS: BP 138/80; PULSE 85; BMI 29.7
--- OUTSIDE RECORDS SUMMARY | 2024-09-29 17:09 | XMS_ITS | Encounter Summary ---
Author Organization [employer] Address 75 [facility] 7t [place] [address] Care Team Providers Care Navigation Teacher Name Role Phone Morgan Curran MD [...] Upcoming Encounters Date Type Department Care Team ([facility] st Contact Info) Description 10/06/2024 11:15 AM EDT Telemedicine [facility] MED & PEDS [address] [place] [address] Ebenezer Acuña MD [address] [place] [address] documented as of this encounter Visit Diagnoses Not on filedocumented in this encounter Additional Health Concerns Assessment Noted Time PHQ-9 Depression Total Score: 8 05/25/20 24 8:54 AM EDT documented as of this encounter Care Teams Navigation Teacher Relationship Specialty Start Date End Date Morgan Curran MD [address] [place] [address] PCP - General Internal Medicine 08/18/24 documented as of this encounter
--- OUTSIDE RECORDS SUMMARY | 2024-09-29 17:09 | XMS_ITS | Encounter Summary ---
Author Organization [employer] [facility] Address [address] [facility] 7[address] [place] [address] Care Team Providers Care Civil Engineering Technician Name Role Phone Ashlee Meza MD Primary Care Provider [phone] Morgan Curran MD Primary Care Prov ider Reason for Visit * Reason Onset Date Comments Nurse Triage 08/12/2024 Encounter Details Date Type Department Care Team ([facility] st Contact Info) Description 08/12/2024 Telephone [facility] MEDICINE [address] [place] [address] Ashlee Meza MD [address] [place] [address] Nurse Triage Social History Tobacco Use Types [...] the past 12 months, has t he [employer], gas, oil or water [employer] threatened to shut off services in your [...] 08/12/2024 3:04 PM EST Triage call with [facility] [place] [id number]. Pt reports can speak Chinese. Triage continued in welsh at this time. Pt reports frequency , [...] The caller accepted this outcome. Contact pt [phone] documented in this encounter Plan of Treatment Upcoming Encounters Date Type Department Care Team (Late st Contact Info) Description 10/06/2024 11:15 AM EDT Telemedicine [facility] MED & PEDS [address] [place] [address] Ebenezer Acuña MD [address] [place] [address] documented as of this encounter Visit Diagnoses Not on filedocumented in this encounter Additional Health Concerns Assessment Noted Time PHQ-9 Depression Total Score: 8 05/25/20 24 8:54 AM EDT documented as of this encounter Care Teams Civil Engineering Technician Relationship Specialty Start Date End Date Ashlee Meza MD [address] [place] [address] PCP - General Family Medicine 03/28/20 08/17/24 Morgan Curran MD [address] [place] [address] PCP - General Internal Medicine 08/18/24 documented as of this encounter
--- OUTSIDE RECORDS SUMMARY | 2024-09-29 17:09 | XMS_ITS | Data Portability ---
Author Organization [place] - JOHN COLEMAN MD [facility], Main Office Address [address] [place] [phone] Assessment Encounter Date Assessment Date Assessment LastModified by Organization Details LastModified Time 08/27/2023 08/27/2023 telehealth. [facility]ximity. 19 min. [place] home in [place] [email or web address] Not available 08/27/2023 10:30:23 09/19/2023 09/19/2023 VIDEO. telehealth. [facility]. 19 min. [email or web address] Not available 09/19/2023 19:27:02 08/27/2024 08/27/2024 Telehealth. 17 min; [place]. [place]; [place] in office [place]; [facility] [email or web address] Not available 08/28/2024 10:31:52 Plan of Treatment Reminders Order Date Submit Date Provider Last Modified By Organization Details Last Modified Time Details Appointments B20 FOLLOW UP 2024 11:00A Tj Vickers MD Not available Not available Not available Lab hepatitis B DNA, quantitat anastacia, serum [address] (Lab), [address] [place] [address], [address], 09/04/2024 08:48:24 CBC w/ diff [address] (Lab), [address] [place] [address], [address], 09/04/2024 08:48:25 ALT (alanine aminotran sferase), serum or plasma [address] (Lab), [address] [place] [address], [address], 09/04/2024 08:48:25 AST/SGOT (aspartat e aminotran sferase), serum or plasma [address] [place] [address] (Lab), [address] [place] [address], [address], 09/04/2024 08:48:25 CT + NG DNA, PCR, unspecifi ed specimen [address] [place] [address] (Lab), [address] [place] [address], [address], 09/04/2024 08:48:25 creatinin e w/ estimated GFR (eGFR), serum or plasma [address] [place] [address] (Lab), [address] [place] [address], [address], 09/04/2024 08:48:25 hepatitis C virus Ab, serum [address] [place] [address] (Lab), [address] [place] [address], [address], 09/04/2024 08:48:25 RPR (rapid plasma reagin), serum [address] [place] [address] (Lab), [address] [place] [address], [address], 09/04/2024 08:48:25 HIV (1+2) Ab screen, serum [address] [place] [address] (Lab), [address] [place] [address], [address], 09/04/2024 08:48:25 bilirubin , total, serum or plasma [address] [place] [address] (Lab), [address] [place] [address], [address], 09/04/2024 08:48:25 albumin, serum or plasma [address] (Lab), [address] [place] [address], [address], 09/04/2024 08:48:25 hepatitis B DNA, quantitat anastacia, serum [address] (Lab), [address] [place] [address], [address], 02/14/2024 09:27:22 CBC w/ diff [address] (Lab), [address] [place] [address], [address], 02/14/2024 09:27:23 ALT (alanine aminotran sferase), serum or plasma [address] (Lab), [address] [place] [address], [address], 02/14/2024 09:27:23 AST/SGOT (aspartat e aminotran sferase), serum or plasma [address] (Lab), [address] [place] [address], 87[address], 02/14/2024 09:27:23 CT + NG DNA, PCR, unspecifi ed specimen [address] (Lab), [address] [place] [address], [address], 02/14/2024 09:27:23 creatinin e w/ estimated GFR (eGFR), serum or plasma [address] (Lab), [address] [place] [address], [address], 02/14/2024 09:27:23 hepatitis C virus Ab, serum [address] (Lab), [address] [place], [address], 02/14/2024 09:27:23 RPR (rapid plasma reagin), serum [address] (Lab), [address] [place] [address], [address], 02/14/2024 09:27:23 HIV (1+2) Ab screen, serum [address] (Lab), [address] [place], [address], 02/14/2024 09:27:24 bilirubin , total, serum or plasma [address] (Lab), [address] [place] [address], [address], 02/14/2024 09:27:24 albumin, serum or plasma [address] (Lab), [address] [place] [address], [address], 02/14/2024 09:27:24 hepatitis B DNA, quantitat anastacia, serum [address] (Lab), [address] [place] [address], [address], 09/04/2023 16:25:25 hepatitis D virus Ab panel, serum [address] (Lab), [address] [place] [address], [address], 09/04/2023 16:25:25 CBC w/ diff [address] [place] [address] (Lab), [address] [place] [address], [address], 09/04/2023 16:25:25 CT + NG DNA, PCR, unspecifi ed specimen [address] (Lab), [address] [place] [address], 81561, 09/04/2023 16:25:26 creatinin e w/ estimated GFR (eGFR), serum or plasma [address] (Lab), [address] [place] [address], 48606, 09/04/2023 16:25:26 hepatitis C virus Ab, serum [address] [place] [address] (Lab), [address] [place] [address], 05986, 09/04/2023 16:25:26 RPR (rapid plasma reagin), serum [address] (Lab), [address] [place] [address], 87856, 09/04/2023 16:25:26 hepatitis B virus e Ag, QN, serum [address] [place] [address] (Lab), [address] [place] [address], 31733, 09/04/2023 16:25:26 hepatitis B virus e Ab, QN, serum [address] [place] [address] (Lab), [address] [place] [address], 49[address], 09/04/2023 16:25:26 hepatitis C liver status biomarker panel, serum [address] [place] [address] (Lab), [address] [place] [address], 01917, 09/04/2023 16:25:27 BMP, serum or plasma [address] [place] [address] (Lab), [address] [place] [address], 08755, 09/04/2023 16:25:27 hepatitis B DNA, quantitat anastacia, serum [address] (Lab), [address] [place] [address], 388[address], 07/04/2023 15:59:15 hepatitis D virus Ab panel, serum [address] (Lab), [address] [place] [address], 79173, 07/04/2023 15:59:16 CBC w/ diff [address] [place] [address] (Lab), [address] [place] [address], 20[address], 07/04/2023 15:59:16 ALT (alanine aminotran sferase), serum or plasma [address] (Lab), [address] [place] [address], 25205, 07/04/2023 15:59:16 AST/SGOT (aspartat e aminotran sferase), serum or plasma [address] (Lab), [address] [place] [address], 93807, 07/04/2023 15:59:16 CT + NG DNA, PCR, unspecifi ed specimen [address] (Lab), [address] [place] [address], [address]11, 07/04/2023 15:59:16 creatinin e w/ estimated GFR (eGFR), serum or plasma [address] [place] [address] (Lab), [address] [place] [address], 01515, 07/04/2023 15:59:16 hepatitis C virus Ab, serum [address] (Lab), [address] [place] [address], 22731, 07/04/2023 15:59:17 RPR (rapid plasma reagin), serum [address] (Lab), [address] [place] [address], 564[address], 07/04/2023 15:59:17 hepatitis B virus e Ag, QN, serum [address] (Lab), [address] [place] [address], 19703, 07/04/2023 15:59:17 hepatitis B virus e Ab, QN, serum [address] (Lab), [address] [place], [address], 07/04/2023 15:59:17 hepatitis C liver status biomarker panel, serum [address] (Lab), [address] [place] [address], 632[address], 07/04/2023 15:59:17 Referral None recorded. Procedures None recorded. Surgeries None recorded. Imaging US, abdomen - HBV. HCC SCreen; hx fatty liver; and GB adenomyom atosis per previous scan [address] (Imaging), [address] [place] [address], [address], 09/11/2024 09:03:34 US, liver - dx HBV; fatty liver: HCC screen testing [address] (Imaging), [address] [place], [address], 09/12/2023 13:31:52 Medication Orders None recorded. Patient TargetsNo targets recorded. Patient InstructionsNo instructions recorded. Reason for Referral None Reported. Results Created Date Observation Date Name Description Value Unit Range Abnormal Flag Note LastModifiedBy Organization Detail LastModifiedTime 09/20/19 24 09/18/2023 US, liver No observ ation record ed. eloy [facility] (Imaging) [address] [place] [address], [address], 09/23/2023 13:02:29 Result Notes None recorded. Problems Name Problem SNOMED Code Status Onset Date Resolution Date Notes Provider Name and Address Organization Details Recorded Time Steatosis of liver 969567977 Active 2023 John Vickers MD [address] [place] [address], [phone], LIANNE VICKERS MD [facility] 10:35:09 Adenomyomatosi s of gallbladder 019724776 Active 2023 John Vickers MD [address] [place] [address], [address], LIANNE VICKERS MD [facility] 10:24:47 Problem Notes None recorded. Procedures Surgical History None recorded. Imaging Results Imaging Date Name Status LastModified by Organiz ation Details LastModified Time 09/18/2023 US, liver completed eloy [facility] (Imaging) [address] [place] [address], 89[address], 09/23/2023 13:02:29 Procedure Notes None recorded. Medical [...] Note 571 Ethel Rivera Main Office [address] [place] [address] 04/29/2023 12:56:09 04/30/2023 17:08:59 Chronic type B viral hepatitis 86197082 B18.1 HBV. monitor labs; no tx. no [...] intake. 1993 John Vickers MD Main Office [address] [place] [phone] 08/27/2023 10:39:49 08/27/2023 11:01:55 Chronic type B viral hepatitis 68364878 B18.1 HBV.monito r labs; no tx. no [...] PreP availabili tyPlan of care reviewed Adult [facility] examination 189440543 Z00.00 labs ordered [id number] John Vickers MD Main Office [address] [place] [address] 09/19/2023 10:01:15 11/04/2023 13:55:01 Chronic type B viral hepatitis 69477403 B18.1 HBV.monito r labs; no tx. no [...] of care reviewed Adenomyoma tosis of gallbladder 484651038 K82.8 will see GI; referred by PCP. [id number] John Vickers MD Main Office [address] [place] [phone] 02/07/2024 09:16:44 02/07/2024 10:45:21 Chronic type B viral hepatitis 41064206 B18.1 HBV.monito r labs; no tx. no [...] of care reviewed Adenomyoma tosis of gallbladder 678926487 K82.[address] scan reports done at [facility] Steatosis of liver 1007 K76.0 diet and exercise reviewedav oid ETOH.incre ase water intake.vit [place] suggested. 96149 John Vickers MD Main Office [address] [place] [phone] 6 08/28/2024 10:19:34 09/10/2024 15:08:10 Chronic type B viral hepatitis 06864197 B18.1 HBV.monito r labs; no tx. no [...] of care reviewed Adenomyoma tosis of gallbladder 858904048 K82.[address] [facility] abd ordered Steatosis of liver 1007 K76.0 [...] Sanchez Member ID Guarantor Name 04/29/2023 1 [facility] [id number] Ashley Marshall [id number] Ashley Marshall 08/27/2023 1 [facility] [id number] Ashley Marshall [id number] Ashley Marshall 08/27/2023 2 [place] [facility] Ashley Marshall [id number] Ashley Marshall 09/19/2023 1 [facility] [id number] Ashley Marshall [id number] Ashlye Marshall 09/19/2023 2 [place] [facility] Ashley Marshall [id number] Ashley Marshall 02/07/2024 1 [facility] [id number] Ashley Marshall [id number] Ashley Marshall 02/07/2024 2 [place] [facility] Ashley Marshall [id number] Ashley Marshall 08/27/2024 1 [facility] [id number] Ashley Marshall [id number] Ashley Marshall 08/27/2024 2 [place] [facility] Ashley Marshall [id number] Ashley Marshall Notes Date Note Type Note Provider Name and Address Organization Details Recorded Time 04/29/2023 text/html f/u HBVTelemedic ine Visit. [place]; [place] at office in [place]. 19 min visit. AUDIO VISITwill get labs drawn this weekhad labs done on ,3, but no HBV labs; labs ordered by PCP at [place]. HBV DNA VL 683 IU/ml; HCV neg; [...] jaundice. no leg swelling LIANNE Jimenez MD [facility] 05/08/2023 10:21:01 08/27/2023 text/html f/u HBV04/2023 [...] abdno new medical issues John Vickers MD [address] [place] [address], [phone], LIANNE VICKERS MD [facility] 08/27/2023 10:41:56 09/19/2023 text/html f/u HBV.not on t x by choice.08/28/2023 Fibrosure F0; HDV negshe was told has adenomyomatosis of GB; was present on 2022.;she will see a surgeon on 10/01/23 for gallbladder evaluation. i do not have u/s report here.no other concerns. no abd pain. no n.v.d, abdominal discomfort after she eats. no weight loss. no fever. no zjzdapay67/2023 HBV labs not done; ASLt/AST wnl; eGFR [...] abdno new medical issues John Vickers MD [address] [place] [address], [phone], LIANNE VICKERS MD [facility] 09/22/2023 21:33:42 02/07/2024 text/html f/u HBV.not on t x by choice.08/28/2023 Fibrosure F0; HDV neghad CT scan done in [place]. due to u/s 08/2023 that shows adenomyomatosis of GB; was present on 2022.;no other concerns. no abd pain. no n.v.d, abdominal discomfort after she eats. no weight loss. no fever. no uwkisuuq81/2023 HBV labs not done; ASLt/AST wnl; eGFR [...] one male sexual partner John Vickers MD [address] [place] [address], [phone], LIANNE VICKERS MD [facility] 02/07/2024 14:52:16 08/27/2024 text/html f/u HBV.not on t x by choice.07/2024 HBV ZV=575; ALT/AST wnl; eGFE>60; negative HIV and negative syphillis. neg GC/chlamydia08/28/2023 Fibrosure F0; HDV neghad u/s and CT scan done in [place]. due to u/s 08/2023 that shows adenomyomatosis of GB; was present on 2022.;no other concerns. no abd pain. no n.v.d, abdominal discomfort after she eats. no weight loss. no fever. no jaundicemed list reviewedno new meds nor OTCdenies ETOH use. denies drug useno new medical issueshas one male partner; denies sexual activityno STI sxshe reports household is vaccinated John Vickers MD [address] [place] [address], [phone], LIANNE - JOHN VICKERS MD [facility] 08/28/2024 10:34:13 OBGyn Episode No OBEpisode recorded.
--- OUTSIDE RECORDS SUMMARY | 2024-09-29 17:09 | XMS_ITS | Encounter Summary ---
Author Organization [employer] Address [address] [facility] 7t [place] [address] Care Team Providers Care Shop Firer/Fireman Name Role Phone Morgan Curran MD Primary Care Prov ider Reason for Visit * Reason Comments Med Refill Encounter Details Date Type Department Care Team ([facility] st Contact Info) Description 09/15/2024 Refill [facility] MED & PEDS [address] [place] [address] Ashlee Meza MD [address] [place] [address] Spasm of cervical paraspinous muscle Social History [...] Description 10/06/2024 11:15 AM EDT Telemedicine [facility] MED & PEDS [address] [place] [address] Ebenezer Acuña MD [address] [place] [address] documented as of this encounter Visit Diagnoses Diagnosis Spasm of cervical paraspinous muscle Spasm of muscle documented in this encounter Additional Health Concerns Assessment Noted Time PHQ-9 Depression Total Score: 8 05/25/20 24 8:54 AM EDT documented as of this encounter Care Teams Shop Firer/Fireman Relationship Specialty Start Date End Date Morgan Curran MD [address] [place] [address] PCP - General Internal Medicine 08/18/24 documented as of this encounter
--- OUTSIDE RECORDS SUMMARY | 2024-09-29 17:09 | XMS_ITS | Encounter Summary ---
Author Organization [employer] Address [address] [place] [address] Care Team Providers Care Body Welder Name Role Phone Morgan Curran MD Primary Care Prov ider Reason for Visit * Reason Onset Date Comments Nurse Triage 09/23/2024 Encounter Details Date Type Department Care Team ([facility] st Contact Info) Description 09/23/2024 Telephone [facility] CHC MED & PEDS [address] [place], [place] [phone] Morgan Curran MD [address] [place] [address] Nurse Triage Social History Tobacco Use Types [...] the past 12 months, has t he [employer], gas, oil or water [employer] threatened to shut off services in your [...] 09/23/2024 2:04 PM EST Triage call with [facility] [employer] [place] [id number] Alberto Pt reports abdominal pain, above umbilicus for last few days. Pt reports one episode of diarrhea yesterday but, nothing more. Neg for vomiting, fever or urinary symptoms. Pt reports this pain comes and goes but, is not ending. Pt is not . ASK apt in [facility] today at 320p. Pt agrees with disposition [...] Info) Description 10/06/2024 11:15 AM EDT Telemedicine [facility] MED & PEDS [address] [place] [address] Ebenezer Acuña MD [address] [place] [address] documented as of this encounter Visit Diagnoses Not on filedocumented in this encounter Additional Health Concerns Assessment Noted Time PHQ-9 Depression Total Score: 8 05/25/20 24 8:54 AM EDT documented as of this encounter Care Teams Body Welder Relationship Specialty Start Date End Date Morgan Curran MD [address] [place] [address] PCP - General Internal Medicine 08/18/24 documented as of this encounter
--- OUTSIDE RECORDS SUMMARY | 2024-09-29 17:09 | XMS_ITS | Encounter Summary ---
Author Organization [employer] [facility] Address [address] [facility] 7 [place] [address] Care Team Providers Care Railroader Name Role Phone Morgan Curran MD Primary Care Prov ider Reason for Visit * Reason Onset Date Comments Nurse Triage 09/15/2024 Encounter Details Date Type Department Care Team (Late st Contact Info) Description 09/15/2024 Telephone [facility] MEDICINE [address] [place] [address] Morgan Curran MD [address] [place] [address] Nurse Triage Social History Tobacco Use Types [...] Patient called back, requesting an appointment, given [facility] appt tomorrow. Future Appointments Date Time Provider Department Center 09/16/2024 2:20 PM [facility] Insurance verified as active per Real Time Eligibility in [facility]. * Telephone Encounter - Farrah Valdivia RN [...] EDT Telemedicine [facility] MED & PEDS [address] [place] [address] Ebenezer Acuña MD [address] [place] [address] documented as of this encounter Visit Diagnoses Diagnosis Spasm of cervical paraspinous muscle Spasm of muscle Moderate persistent asthma, unspecified whether complicated documented in this encounter Additional Health Concerns Assessment Noted Time PHQ-9 Depression Total Score: 8 05/25/20 24 8:54 AM EDT documented as of this encounter Care Teams Railroader Relationship Specialty Start Date End Date Morgan Curran MD [address] [place] [address] PCP - General Internal Medicine 08/18/24 documented as of this encounter
--- OUTSIDE RECORDS SUMMARY | 2024-09-29 17:09 | XMS_ITS | Encounter Summary ---
Author Organization [employer] Address [address] [place] [address] Care Team Providers Care Director Of Spa And Guest Experience Name Role Phone Morgan Curran MD Primary Care Prov ider Reason for Visit * Reason Onset Date Comments No Show 09/28/2024 Encounter Details Date Type Department Care Team ([facility] st Contact Info) Description 09/28/2024 Telephone [facility] CHC MED & PEDS [address] [place], [place] [phone] Morgan Curran MD [address] [place] [address] No Show Social History Tobacco Use Types [...] the past 12 months, has t he [employer], gas, oil or water [employer] threatened to shut off services in your [...] Upcoming Encounters Date Type Department Care Team ([facility] st Contact Info) Description 10/06/2024 11:15 AM EDT Telemedicine [facility] MED & PEDS [address] [place], [place] [phone] Ebenezer Acuña MD [address] [place], [place] [phone] documented as of this encounter Visit Diagnoses Not on filedocumented in this encounter Additional Health Concerns Assessment Noted Time PHQ-9 Depression Total Score: 8 05/25/20 24 8:54 AM EDT documented as of this encounter Care Teams Director Of Spa And Guest Experience Relationship Specialty Start Date End Date Morgan Curran MD [address] [place] [address] PCP - General Internal Medicine 08/18/24 documented as of this encounter
--- OUTSIDE RECORDS SUMMARY | 2024-09-29 17:09 | XMS_ITS | Encounter Summary ---
Author Organization [employer] Address [address] [facility] 7t [place] [address] Care Team Providers Care Instrument Checker Name Role Phone Morgan Curran MD Primary [...] Upcoming Encounters Date Type Department Care Team ([facility] st Contact Info) Description 10/06/2024 11:15 AM EDT Telemedicine [facility] MED & PEDS [address] [place] [address] Ebenezer Acuña MD [address] [place] [address] documented as of this encounter Visit Diagnoses Not on filedocumented in this encounter Additional Health Concerns Assessment Noted Time PHQ-9 Depression Total Score: 8 05/25/20 24 8:54 AM EDT documented as of this encounter Care Teams Instrument Checker Relationship Specialty Start Date End Date Morgan Curran MD [address] [place] [address] PCP - General Internal Medicine 08/18/24 documented as of this encounter
--- OUTSIDE RECORDS SUMMARY | 2024-09-29 17:09 | XMS_ITS | Encounter Summary ---
Author Organization [employer] Address [address] [place] [address] Care Team Providers Care Title Insurance Agent Name Role Phone Morgan Curran MD Primary Care Prov ider Reason for Visit * Reason Onset Date Comments ER Follow-up 09/25/2024 Encounter Details Date Type Department Care Team ([facility] st Contact Info) Description 09/25/2024 Telephone [facility] CHC MED & PEDS [address] [place], [place] [phone] Morgan Curran MD [address] [place] [address] ER Follow-up Social History Tobacco Use Types [...] the past 12 months, has t he [facility], gas, oil or water [employer] threatened to shut off services in your [...] other associated symptoms. given appt Saturday with [facility] provider at 10:15 for exam and recheck. [...] stated she came in to [facility] for appt on 09/23/24 and sent pt to hospital, [facility] documented in this encounter Plan of Treatment Upcoming Encounters Date Type Department Care Team (Late st Contact Info) Description 10/06/2024 11:15 AM EDT Telemedicine [facility] MED & PEDS [address] [place] [address] Ebenezer Acuña MD [address] [place] [address] documented as of this encounter Visit Diagnoses Not on filedocumented in this encounter Additional Health Concerns Assessment Noted Time PHQ-9 Depression Total Score: 8 05/25/20 24 8:54 AM EDT documented as of this encounter Care Teams Title Insurance Agent Relationship Specialty Start Date End Date Morgan Curran MD [address] [place] [address] PCP - General Internal Medicine 08/18/24 documented as of this encounter
--- OUTSIDE RECORDS SUMMARY | 2024-09-29 17:09 | XMS_ITS | Encounter Summary ---
Author Organization [facility] Address [address] [place] [address] [address] [address] Care Team Providers Care Bioinformatics Developer Name Role Phone Morgan Curran MD Primary Care Prov ider Reason for Referral * Consultation (Urgent) - Pending Review Specialty Diagnoses / Procedures Referred By Maya schrader Referred To Contact Behavioral Health Diagnoses Adenomyomatosis of gallbladder Right upper quadrant pain Ebenezer Acuña MD [address] [place] [address] Phone: tel: fax: Referral ID Status Reason Start Date Expiration Date Visits Requested Visits Authorized [id number] Pending Review Specialty Services Required 09/23/2024 09/23/2025 1 1 Encounter Details Date Type Department Care Team (Latest Contact Info) Description 09/23/2024 3:20 PM EST Office Visit [facility] [address] [place] [address] Ebenezer Acuña MD [address] [place] [address] Adenomyomatosis of gallbladder (Primary Dx); Right upper [...] type B viral hepatitis (CMS/HCC) Deficiency of besriew-1-bkwckqodd dehydrogenase Diverticular disease Dysphonia Mixed anxiety and [...] Info) Description 10/06/2024 11:15 AM EDT Telemedicine [facility] [address] [place] [address] Ebenezer Acuña MD [address] [place] [address] Scheduled Referrals Name Type Priority Associated Diagnoses [...] documented as of this encounter Care Teams Bioinformatics Developer Relationship Specialty Start Date End Date Morgan Curran MD [address] [place] [address] PCP - General Internal Medicine 08/18/24 documented as of this encounter
--- OUTSIDE RECORDS SUMMARY | 2024-09-29 17:09 | XMS_ITS | Encounter Summary ---
Author Organization [facility] Address [address] [facility] [address] [place] [address] Care Team Providers Care Nitroglycerin Supervisor Name Role Phone Ashlee Meza MD Primary Care Provider [phone] Morgan Curran MD Primary Care Prov ider Reason for Visit * Reason Comments Med Refill Encounter Details Date Type Department Care Team ([facility] Contact Info) Description 05/21/2023 Refill [facility] [address] [place] [address] Ashlee Meza MD [address] [place] [address] Social History Tobacco Use Types Packs/Day Years [...] Upcoming Encounters Date Type Department Care Team ([facility] st Contact Info) Description 10/06/2024 11:15 AM EDT Telemedicine [facility] [address] [place] [address] Ebenezer Acuña MD [address] [place] [address] documented as of this encounter Visit Diagnoses Not on filedocumented in this encounter Additional Health Concerns Assessment Noted Time PHQ-9 Depression Total Score: 6 04/22/20 23 9:18 AM EDT documented as of this encounter Care Teams Nitroglycerin Supervisor Relationship Specialty Start Date End Date Ashlee Meza MD [address] [place] [id number] PCP - General Family Medicine 03/28/20 08/17/24 Morgan Curran MD [address] [place] [address] PCP - General Internal Medicine 08/18/24 documented as of this encounter
--- OUTSIDE RECORDS SUMMARY | 2024-09-29 17:09 | XMS_ITS | Encounter Summary ---
Author Organization [employer] Address [address] [place] [address] Care Team Providers Care Resistor Tester Name Role Phone Morgan Curran MD Primary Care Prov ider Reason for Visit * Reason Onset Date Comments ER Follow-up 09/24/2024 Encounter Details Date Type Department Care Team ([facility] st Contact Info) Description 09/24/2024 Telephone [facility] [address] [place], [place] [id number] Morgan Curran MD [address] [place] [address] ER Follow-up Social History Tobacco Use Types [...] 12:04 PM EST TC to pt using enro[facility] services to schedule ER follow up. No answer. Voicemail left instructing pt to return call to office. * Telephone Encounter - Isaura Torres - 09/24/2024 11:43 AM EST Patient calling to report ED visit on : Date: 09/23/24 Hospital: [facility] Seen for: abdominal pain Symptomatic No [...] Info) Description 10/06/2024 11:15 AM EDT Telemedicine [facility] [address] [place] [address] Ebenezer Acuña MD [address] [place] [address] documented as of this encounter Visit Diagnoses Not on filedocumented in this encounter Additional Health Concerns Assessment Noted Time PHQ-9 Depression Total Score: 8 05/25/20 8:54 AM EDT documented as of this encounter Care Teams Resistor Tester Relationship Specialty Start Date End Date Morgan Curran MD [address] [place] [address] PCP - General Internal Medicine 08/18/24 documented as of this encounter
--- OUTSIDE RECORDS SUMMARY | 2024-09-29 17:09 | XMS_ITS | Encounter Summary ---
Author Organization [facility] Address [address] [facility] [address] [place] [address] Care Team Providers Care Inspector Rough Castings Name Role Phone Ashlee Meza MD Primary Care Provider [phone] Morgan Curran MD Primary Care Prov ider Reason for Visit * Reason Comments Med Refill Encounter Details Date Type Department Care Team ([facility] Contact Info) Description 03/12/2024 Refill [facility] [address] [place] [address] Ashlee Meza MD [address] [place] [address] Social History Tobacco Use Types Packs/Day Years [...] 11:15 AM EDT Telemedicine [facility] [address] [place] [address] Ebenezer Acuña MD [address] [place] [address] documented as of this encounter Visit Diagnoses Not on filedocumented in this encounter Additional Health Concerns Assessment Noted Time PHQ-9 Depression Total Score: 6 04/22/20 23 9:18 AM EDT documented as of this encounter Care Teams Inspector Rough Castings Relationship Specialty Start Date End Date Ashlee Meza MD [address] [place] [id number] PCP - General Family Medicine 03/28/20 08/17/24 Morgan Curran MD [address] [place] [address] PCP - General Internal Medicine 08/18/24 documented as of this encounter
--- OUTSIDE RECORDS SUMMARY | 2024-09-29 17:09 | XMS_ITS | Clinical Summary ---
Author Organization [employer] Address [address] [place] [address] 7[address] [place] [address] Care Team Providers Care Collection Card Clerk Name Role Phone Morgan Curran MD [...] Center 09/23/2023 9:45 AM KAMARI Hogan MEDICINE [facility] 09/23/2023 1:00 PM Nargis Miner PharmD [facility] 10/14/2023 10:00 AM Ashlee Meza MD [facility] Assessment & Plan (03/15/2023 9:20 AM [...] type B viral hepatitis 05/13/2012 Deficiency of kxsjlda-0-uuoyzkrwj dehydrogenase 05/13/2012 Mixed anxiety and depressive disorder [...] Type Department Care Team Description 09/28/2024 Telephone [facility] [address] [place] [address] Morgan Curran MD No Show 09/28/[address] [address] Morgan Curran MD Switch appointment 09/25/2024 Telephone [facility] [address] [place] [address] Morgan Curran MD ER Follow-up 09/24/2024 Telephone [facility] [address] [place] [address] Morgan Curran MD ER Follow-up 09/23/2024 3:20 PM EST Office Visit [facility] [address] [place] [address] Ebenezer Acuña MD Adenomyomatosis of gallbladder (Primary Dx); Right upper quadrant pain 09/23/2024 Orders Only GENERIC EXTERNAL DATA DEPARTMENT Provider, Generic External Data 09/23/2024 Travel 09/23/2024 Telephone [facility] [address] [place] [address] Morgan Curran MD Nurse Triage 09/16/2024 2:20 PM EST Office Visit [facility] [address] [place] [address] Adriana Brock MD Influenza A 09/16/2024 Travel 09/15/2024 Refill [facility] [address] [place] [address] Ashlee Meza MD Spasm of cervical paraspinous muscle 09/15/[address] [address] Morgan Curran MD Nurse Triage 09/15/2024 Refill [facility] [address] [place], [place] [phone] Ashlee Meza MD Spasm of cervical paraspinous muscle 09/15/2024 Refill [facility] [address] [place], [place] [phone] Morgan Curran MD 08/28/2024 Refill [facility] [address] [place], [place] [phone] Morgan Curran MD Hypothyroidism, unspecified type 08/12/2024 4:15 PM EST Office Visit [facility] [address] [place], [place] [phone] Morgan Curran MD Overweight (Primary Dx); Frequency of urination; Epigastric pain 08/12/2024 Telephone [facility] [address] [place], [place] [phone] Ashlee Meza MD Change PCP 08/12/2024 Travel 08/12/2024 Telephone [facility] MEDICINE [address] [place] [address] Ashlee Meza MD Nurse Triage 07/31/2024 Refill [facility] [address] [place], [place] [phone] Marbella Love, DEVIN Mixed anxiety and depressive disorder 07/31/2024 Refill [facility] [address] [place], [place] [phone] Ashlee Meza MD 07/31/2024 Telephone [facility] [address] [place], [place] [phone] Ashlee Meza MD Med Refill 07/06/2024 Refill [facility] [address] [place], [place] [phone] Ashlee Meza MD Moderate persistent asthma, unspecified whether complicated 07/02/2024 Refill [facility] MEDICINE [address] [place] [address] Ashlee Meza MD Hypothyroidism, unspecified type from [...] Upcoming Encounters Date Type Department Care Team ([facility] st Contact Info) Description 10/06/2024 11:15 AM EDT Telemedicine [facility] [address] [place] [address] Ebenezer Acuña MD [address] [place] [address] Health Maintenance Due Date Last Done Comments [...] EST Narrative 09/24/2024 12:39 AM EST ? [facility] ?[address] ?[place] [address] ? Ultrasound Report ? Signed ? Patient: Bee Olivaressette ?MR#: [id number] ?? 73 ? : 1970 ?Acct:[id number] ? Age/Sex: 53 / F ?ADM Date: 09/23/24 ? Loc: HO.ED ? Attending Dr: ? Ordering Physician: Jocelyne Schroeder MD ?? Date of Service: 09/23/24 ?? Procedure(s): US abdomen limited ?? Accession Number(s): [id number] ? cc: Morgan Curran MD; Jocelyne Schroeder MD ? CLINICAL HISTORY: RUQ pain ? US abdomen limited ? Comparison: US/WI/SR - US ABDOMEN COMPLETE - 09/18/23 08:55 [...] DD/ 0038 ? TD/TT: 09/24/24 0038 ? Commercial Production Editor: ? Procedure Note Earlene Kate - 09/24/2024 [place] [id number] [facility] [place] [address] Ultrasound Report Signed Patient: Regina Olivares#: [id number] 73 : 1970Acct:[id number] Age/Sex: 53 / FADM Date: 09/23/24 Loc: HO.ED Attending Dr: Ordering Physician: Jocelyne Schroeder MD Date of Service: 09/23/24 Procedure(s): US abdomen limited Accession Number(s): [id number] cc: Morgan Curran MD; Jocelyne Schroeder MD CLINICAL HISTORY: RUQ pain US abdomen limited Comparison: US/WI/SR - US ABDOMEN COMPLETE - 09/18/23 08:55 [...] MD in OV> 09/24/2438 DD/ TD/TT: 09/24/2437 Commercial Production Editor: us [facility] External Provider IMG US PROCEDURES Edited Result - Final * Urinalysis, Complete, with Reflex to Culture (09/23/2024 5:09 PM EST) Color Urine Yellow [facility] Appearance Urine Clear [facility] PH 6.0 5.0 - 9.0 [facility] Glucose Urine UA Negative Negative mg/dL [facility] Urine Blood Negative Negative [facility] Specific [place] - Urine <=1.005 1.005 - 1.025 [facility] Urine Protein Negative Neg-Trace mg/dL [facility] Urine Ketones Negative Negative mg/dL [facility] Nitrite Urine Negative Negative [facility] Leukocyte Esterase Urine Negative Negative [facility] RBC Urine 0-2 0 - 2 /HPF [facility] Urine WBC 0-5 0 - 5 /HPF [facility] Urine Squamous Epithelial Cell 0-2 0 - 2 /HPF [facility] Urine Bacteria None Seen None Seen [facility] Hyaline Casts, Urine 0-2 0 - 2 /LPF [facility] 09/23/2024 5:09 PM EST 09/23/2024 5:12 PM EST Narrative [facility] - 09/23/2024 5:35 PM EST [id number], Clean Catch us Generic External Data Provider LAB URINE ORDERAB LES Final Result [facility] [address] [place] [address] [phone] * (ABNORMAL) CBC auto differential (09/23/2024 5:09 PM EST) White Blood Count 5.5 4.8 - 10.8 X10*3/uL [facility] Red Blood Count 4.17(L) 4.20 - 5.50 X10*6/uL [facility] Hemoglobin 13.1 12.0 - 16.0 g/dl [facility] Hematocrit 37.9 37.0 - 47.0 % [facility] Mean Corpuscular Volume 90.9 80.0 - 98.0 fL [facility] Mean Corpuscular Hemoglobin 31.4 27.0 - 33.0 pg [facility] Mean Corpuscular HGB Conc 34.6 31.0 - 35.0 g/dl [facility] Red Cell Distribution Width 12.7 11.0 - 16.0 % [facility] Platelet Count 276 160 - 400 X10*3/uL [facility] Mean Platelet Volume 9.9 9.4 - 12.3 fL [facility] Neutrophils Percent Auto 50.5 45 - 73 % [facility] Imm Gran Pct Auto 0.5(H) 0.0 - 0.4 % [facility] Lymphocytes Percent Auto 40.2(H) 20 - 40 % [facility] Monocytes Percent Auto 5.8 2 - 11 % [facility] Eosinophils Percent Auto 2.5 0 - 4 % [facility] Basophils Percent Auto 0.5 0 - 2 % [facility] NRBC Pct Auto 0.0 0.0 - 0.2 /100WBC [facility] Neutrophils Absolute Auto 2.8 2.0 - 8.3 x10*3/uL [facility] Imm Gran Abs Auto 0.03 0.00 - 0.03 X10*3/uL [facility] Lymphocytes Absolute Auto 2.2 1.2 - 4.9 X10*3/uL [facility] Monocytes Absolute Auto 0.3 0.1 - 1.2 X10*3/uL [facility] Eosinophils Absolute Auto 0.1 0.0 - 0.4 X10*3/uL [facility] Basophils Absolute Auto 0.0 0.0 - 0.2 X10*3/uL [facility] NRBC Abs Auto 0.000 0.0 - 0.012 X10*3/uL [facility] 09/23/2024 5:09 PM EST 09/23/2024 5:12 PM EST us Generic External Data Provider LAB BLOOD ORDERAB LES Final Result Performing Organization Address [facility] Co de Phone Number [facility] [address] [place] [phone] * Lipase (09/23/2024 5:09 PM EST) Lipase 41 8 - 78 U/L [facility] 09/23/2024 5:09 PM EST 09/23/2024 5:12 PM EST Generic External Data Provider LAB BLOOD ORDERAB LES Final Result Performing Organization Address [facility] Co de Phone Number [facility] [address] [place] [phone] * (ABNORMAL) Comprehensive Metabolic Panel (09/23/2024 5:09 PM EST) Sodium 140 135 - 145 mmol/L [facility] Potassium 3.6 3.3 - 5.1 mmol/L [facility] Chloride 109(H) 96 - 108 mmol/L [facility] Carbon Dioxide 23 22 - 29 mmol/L [facility] Anion Gap 12 12 - 20 [facility] Urea Nitrogen (BUN) 12 9 - 16 mg/dL [facility] Creatinine, Serum 0.86 0.5 - 1.4 mg/dL [facility] Creatinine Clr Calc Pharmacy 64.1 [facility] Comment:Provided height and weight: 152.4 cm,67.585 kg.eGFR (calculated from the MDRD study equation) and eCrCl(calculated from the Cockcroft-Gault equation) are based ondifferent parameters and may not yield comparable results.If eCrCl result is absurd, please check patient'sheight/weight. Estimated Glomerular Filt Rate >60 [facility] Comment:Chronic Kidney Disea se: Estimated GFR < 60 mL/min/1.17c9Msyzrn Kidney Disease: Estimated GFR < 15 mL/min/1.73m2 Glucose 136(H) 60 - 115 mg/dL [facility] Calcium 9.2 8.4 - 10.2 mg/dL [facility] Bilirubin, Total 0.4 0.0 - 1.0 mg/dL [facility] Aspartate Amino Transferase 29 5 - 31 U/L [facility] Alanine Aminotransferase 47(H) 0 - 31 U/L [facility] Total Protein 7.8 6.5 - 8.0 g/dL [facility] Albumin Level 4.2 3.5 - 5.0 g/dL [facility] Alkaline Phosphatase 85 39 - 117 U/L [facility] 09/23/2024 5:09 PM EST 09/23/2024 5:12 PM EST us Generic External Data Provider LAB BLOOD ORDERAB LES Final Result [facility] [address] [place] [phone] [phone] * POCT Rapid Covid-19 BinaxNOW (09/16/2024 2:35 PM EST) [facility] Rapid COVID Ag Negative QC Media Lot # [id number] Lot# Expiration Date 7,026 Swab 09/16/2024 2:35 PM EST Adriana Brock MD POINT OF CARE TEST ENTER/EDIT OR DERABLES Final Result * POCT Rapid Influenza B OSOM (09/16/2024 2:35 PM EST) [facility] Rapid Influenza B Ag Negative Negative, Indeterminate QC Media Lot # [id number] Lot# Expiration Date 6,[id number] Swab 09/16/2024 2:35 PM EST Adriana Brock MD POINT OF CARE TEST ENTER/EDIT OR DERABLES Final Result * (ABNORMAL) POCT Rapid Influenza A OSOM (09/16/2024 2:34 PM EST) [facility] Rapid Influenza A Ag Positive( A) Negative, Indeterminate QC Media Lot # [id number] Lot# Expiration Date 6,302,025 Swab Nasopharyngeal structure / Unknown 09/16/2024 2:34 PM EST Adriana Brock MD POINT OF CARE TEST ENTER/EDIT OR DERABLES Final Result * POCT urinalysis dipstick manually resulted (08/13/2024 10:27 AM EST) [facility] Color, UA Yellow Clarity, UA Clear Glucose, UA Negative Bilirubin, UA Negative Ketones, UA Negative Spec Grav, UA 1.010 Blood, UA Negative Negative, None Detected pH, UA 6.5 Protein, UA Negative Urobilinogen, UA 0.2 Leukocytes, UA Negative Negative, Rare, Trace Nitrite, UA Negative Negative, None Detected Appearance, UA clear QC Media Lot # Comment:[id number] Lot# Expiration Date Comment:10/26/2024 Urine 08/13/2024 10:2 7 AM EST us Morgan Huffman MD POINT OF CARE TEST ENTER/EDIT ORDERABLES Final Result * Hemoglobin A1c (08/13/2024 8:06 AM EST) Hemoglobin A1c 5.8 <6.0 % [facility] Comment:Hemoglobin A1C Refer ence Range Adults: 4.8 - 6.0 % Non diabetic: < 6.0 % Goal: < 7.0 %Additional Action Suggested: > 8.0 %Note: Hemoglobin A1c results are invalid for patients with abnormal amounts of HbF. Blood transfusions may impact the HbA1c concentration in the patient sample. Estimated Average Glucose 120 mg/dL [facility] Comment:eAG = Estimated ave rage glucose which is %A1C expressed asaverage glucose, using the formula of the X8G-PtfvyxfRhoasrj Glucose study (ADAG), Diabetes Care, Vol.31,#8,2007 Blood Venous blood specimen / Unknown 08/13/2024 8:06 AM EST 08/13/2024 8:06 AM EST us Morgan Huffman MD LAB BLOOD ORDERABL ES Final Result [facility] [address] [place] [address] [phone] * (ABNORMAL) Lipid Panel, Standard (08/13/2024 8:06 AM EST) Triglycerides 109 <150 mg/dL [facility] Comment:Desirable Triglyceri de: less than 150 mg/dLBorderline High Triglyceride 150-199 mg/dLHigh Triglyceride: 200-499 mg/dLVery High Triglyceride: greater than or equal to 5OO mg/dL Cholesterol 193 <200 mg/dL [facility] Comment:Desirable Cholestero l: less than 200 mg/dLBorderline High Cholesterol: 200-239 mg/dLHigh Cholesterol: greater than 239 mg/dL LDL Cholesterol Calculated 123(H) <100 mg/dL [facility] Comment:Desirable LDL: less than 100 mg/dLNear Optimal/Above Optimal LDL: 110- 129 mg/dLBorderline High LDL: 130-159 mg/dLHigh LDL: 160-189 mg/dLVery High LDL: greater than or equal to 190 mg/dL HDL Cholesterol 49 >40 mg/dL [facility] Comment:Desirable HDL: great er than 40 mg/dL Note: This HDL assay may give artificially low results in patients with liver disease. Blood Venous blood specimen / Unknown 08/13/2024 8:06 AM EST 08/13/2024 8:06 AM EST us Morgan Huffman MD LAB BLOOD ORDERABL ES Final Result [facility] [address] [place] [address] [phone] * ThinPrep Imaging Pap and HPV mRNA E6/E7 (03/17/2024 10:00 AM EDT) HPV nRNA E6/E7 Not Detected Not Detected [facility] Comment:Methodology: Transcr iption-Mediated AmplificationThis assay detects E6/E7 viral messenger RNA (mRNA) from 14high-risk HPV types (16,18,31,33,35,39,45,51,52,56,58,59,66,68).Cervical sources are required for HPV testing.If a vaginal source from a patient who has had atotal hysterectomy with removal of cervix wassubmitted, please contact the testing laboratoryfor alternative testing options.For additional information, please refer [email or web address].[employer]/faq/JEN724n7(This link if provided for information/educational purposes only.)THIS TEST WAS PERFORMED AT:[facility] [place] [phone] ALBERTS MD SOURCE: SEE NOTE [facility] Comment:None given Report Status: TNP [facility] Clinical Information: SEE NOTE [facility] Comment:None given LMP: SEE NOTE [facility] Comment:NONE GIVEN Prev. PAP: SEE NOTE [facility] Comment:NONE GIVEN Prev. BX: SEE NOTE [facility] Comment:NONE GIVEN Statement Of Adequacy: SEE NOTE [facility] Comment:[employer] FOR [place] General Categorization: [facility] Interpretation/Result: SEE NOTE [facility] Comment:Cytology Results: Ne gative for intraepitheliallesion or malignancy.Atrophic pattern; predominantly parabasal cells Cytology Comment SEE NOTE [facility] Comment:This Pap test has be en evaluated with computerassisted technology. Peach Grower: SEE NOTE [facility] Comment:DMM, CT(ASCP)CT scre ening location: [address] [address] Review [employer]: [facility] Pathologist [facility] PAP Infection [facility] See Note SEE NOTE [facility] Comment:EXPLANATORY NOTE:The Pap is a [...] AM EDT 03/17/2024 2:30 PM EDT Narrative [facility] - 03/20/2024 2:55 PM EDT SEE SCANNED RESULTS IN EMR us Ashlee Meza MD LAB PATHOLOGY ORDERABLES Erika rich Result [facility] [address] [place] [phone] [phone] * BI Mammogram Screening Tomosynthesis Bilateral (01/21/2024 11:36 AM EDT) Anatomical Region Laterality Modality Breast Bilateral Mammography 01/21/2024 11:3 6 AM EDT Narrative 02/19/2024 11:23 PM EDT ? [facility] ? [address] ?[place] [address] ? Mammography Report ? Signed ? Patient: Marshall,Abilio ?MR#: [id number] ?? 73 ? : 1970 ?Acct:[id number] ? Age/Sex: 53 / F ?ADM Date: 06/25/24 ? Loc: HO.MAMMO ? Attending Dr: Ashlee Meza MD ? Ordering Physician: Ashlee Meza MD ?Results: 2Beni ?? gn Findings ? Date of Service: 01/21/24 ?Follow Up: 1 Year From Orig ?? inal Mammogram ? Procedure(s): MM tomosynthesis screening BI ?? Accession Number(s): [id number] ? cc: Ashlee Meza MD ? EXAMINATION: [...] 02/19/242318 ? DD/ 1136 ? TD/TT: ? Commercial Production Editor: ? Procedure Note Donjohnsonter, Image - 02/19/2024 [facility] [address] [place], [place] [address] Mammography Report Signed Patient: Abilio OlivaresMR#: [id number] 73 : 1970Acct:[id number] Age/Sex: 53 / FADM Date: 01/21/24 Loc: HO.MAMMO Attending Dr: Ashlee Meza MD Ordering Physician: Ashlee Meza MDResults: 2Beni gn Findings Date of Service: 01/21/24Follow Up: 1 Year From Orig inal Mammogram Procedure(s): MM tomosynthesis screening BI Accession Number(s): [id number] cc: Ashlee Meza MD EXAMINATION: MM SCREENING [...] in OV> 02/19/24 2319 DD/ 1136 TD/TT: Commercial Production Editor: Ashlee Meza MD IMG BI PROCEDURES Edited Resu lt - Final * Hepatitis C Ab (10/03/2022 6:48 AM EST) Hepatitis C Antibody Nonreactive Nonreactive [facility] Comment:Antibodies to HCV no t detected; does not exclude early acuteHCV infection. 10/03/2022 6:48 AM EST 10/03/2022 6:48 AM EST Result [facility] External Provider LAB BLO OD ORDERABLES Final Result [facility] [address] [place] [phone] * HIV Ab/Ag ([facility]) (10/03/2022 6:48 AM EST) HIV AB/AG Nonreactive Nonreactive [facility] Comment:HIV-1 p24 Ag and/or HIV-1/HIV-2 Ab not detected.A test result that is nonreactive does not exclude thepossibility of exposure to or infection with HIV-1 and/orHIV-2. Nonreactive results in this assay for individualswith prior exposure to HIV-1 and/or HIV-2 may be due toantigen and antibody levels that are below the limit ofdetection of this assay.The [place] Worker HIV Ag/Ab Combo assay result andsupplemental assay results should be interpreted inconjunction with the patient's clinical presentation,history and other laboratory results. If the results areinconsistent with clinical evidence, additional testing issuggested to confirm the result. 10/03/2022 6:48 AM EST 10/03/2022 6:48 AM EST [facility] External Provider LAB BLO OD ORDERABLES Final Result [facility] [address] [place] [phone] * Hm Colonoscopy (09/20/2020) Colonoscopy Normal Normal Narrative Kaia Miranda - 09/20/2020 Recommended 5 year follow up Historical Provider HEALTH MAINTENANCE Edited Result - Final from Last 3 Months or Most Recently Relevant to Health Maintenance Insurance [facility] [address] [place] [address] [employer] Care Teams Collection Card Clerk Relationship Specialty Start Date End Date Morgan Curran MD [address] [place] [phone] PCP - General Internal Medicine 08/18/24
--- OUTSIDE RECORDS SUMMARY | 2024-09-29 17:09 | XMS_ITS | Encounter Summary ---
Author Organization [employer] Address [address] [place] [address] Care Team Providers Care Weigh Box Tender Name Role Phone Morgan Curran MD Primary Care Prov ider Reason for Visit * Reason Onset Date Comments Med Refill 09/15/2024 Encounter Details Date Type Department Care Team ([facility] st Contact Info) Description 09/15/2024 Refill [facility] MED [facility] PEDS [address] [place] [address] Morgan Curran MD [address] [place] [address] Social History Tobacco Use Types Packs/Day Years [...] EDT Telemedicine [facility] [address] [place] [phone] Ebenezer Acuña MD [address] [place] [address] documented as of this encounter Visit Diagnoses Not on filedocumented in this encounter Additional Health Concerns Assessment Noted Time PHQ-9 Depression Total Score: 8 05/25/20 24 8:54 AM EDT documented as of this encounter Care Teams Weigh Box Tender Relationship Specialty Start Date End Date Morgan Curran MD [address] [place] [address] PCP - General Internal Medicine 08/18/24 documented as of this encounter
--- OUTSIDE RECORDS SUMMARY | 2024-09-29 17:09 | XMS_ITS | Encounter Summary ---
Author Organization [employer] [facility] Address [address] [facility] 7t [place] [address] Care Team Providers Care Pasta Maker Name Role Phone Ashlee Meza MD Primary Care Provider [phone] Morgan Curran MD Primary Care Prov ider Encounter Details Date Type Department Care Team (Late Contact Info) Description 09/14/2022 Orders Only [facility] MEDICINE [address] [place] [address] Adriana Brock MD [address] [place] [address] Hypothyroidism, unspecified type (Primary Dx) Social History [...] Upcoming Encounters Date Type Department Care Team ([facility] Contact Info) Description 10/06/2024 11:15 AM EDT Telemedicine [facility] MED & PEDS [address] [facility] [place] [address] Ebenezer Acuña MD [address] [place] [address] documented as of this encounter Procedures Procedure Name Priority Date/Time Associated Diagnosis Comments TSH W/REFLEX TO FT4 Routine 2022 8 :28 AM EDT Hypothyroidism, unspecified type HEPATITIS C ANTIBODY Routine 10/03/2022 6:48 AM EST Hypothyroidism, unspecified type HIV ANTIBODY/ANTIGEN (HI DPH) Routine 10/03/2022 6:48 AM EST Hypothyroidism, [...] Free T4 1.16 0.32 - 4.0 uIU/mL [facility] 2022 8:28 AM EDT 2022 8:28 AM EDT [facility] External Provider LAB BLO OD ORDERABLES Final Result Performing Organization Address City/State/[facility] Co de Phone Number [facility] [address] [place] [phone] * Hepatitis??D Virus (HDV) Antibody, Total (10/03/2022 6:48 AM EST) Hepatitis D Antibody, Total NEGATIVE [facility] Comment:REFERENCE RANGE: NEG ATIVE INTERPRETIVE [...] and its analyticalperformance characteristics have been determinedby [employer]. It has not been cleared orapproved by FDA. This assay has been validatedpursuant to the CLIA regulations and is used forclinical purposes.THIS TEST WAS PERFORMED AT:[employer] [id number] [place] [id number] OROZCO MD,PHD,LYNN 10/03/2022 6:48 AM EST 10/03/2022 6:48 AM EST [facility] External Provider LAB BLO OD ORDERABLES Final Result Performing Organization Address [facility] Co de Phone Number [facility] [address] [place] [phone] * Hepatitis B Core??Antibody (IgM) (10/03/2022 6:48 AM EST) Hepatitis B Core Antibody IgM NON-REACTI VE NON-REACT KIM [facility] Comment:THIS TEST WAS PERFOR MED AT:[employer] [address] [id number] ALBERTS MD 10/03/2022 6:48 AM EST 10/03/2022 6:48 AM EST [facility] External Provider LAB BLO OD ORDERABLES Final Result Performing Organization Address [facility] de Phone Number [facility] [address] [place] [phone] * (ABNORMAL) Hepatitis B Virus DNA, Quantitative, Real-Time PCR (10/03/2022 6:48 AM EST) Hepatitis B Viral DNA Qn - cp 2.83(A) NOT DETECTED Log IU/mL [facility] Comment:This test was perfor med using Real-Time Polymerase ChainReaction.Reportable Range: 10 IU/mL to 1,000,000,000 IU/mL.(1.00 Log IU/mL to 9.00 Log IU/mL).The analytical performance characteristics of this assayhave been determined by [employer]. Themodifications have not been cleared or approved by theA. This assay has been validated pursuant to the CLIAregulations and is used for clinical purposes.THIS TEST WAS PERFORMED AT:[employer] [address] [id number] ALBERTS MD Hepatitis B Viral DNA Qn-IU/mL 683(A) NOT DETECTED IU/mL [facility] 10/03/2022 6:48 AM EST 10/03/2022 6:48 AM EST [facility] External Provider LAB BLO OD ORDERABLES Final Result Performing Organization Address City/[facility]/ZIP Co de Phone Number [facility] [address] [place] [phone] * (ABNORMAL) Hepatitis B Surface Antigen with Reflex Confirmation (10/03/2022 6:48 AM EST) Hepatitis B Surface Ag Confirmed Pos(A) Negative [facility] Comment:RESULTS OF CALLED TO AND READ BACK BY AT 1126 BY WENCESLAO.Results of HBSAG called to and read back byon 10/05/22 at 1134 by WENCESLAO. 10/03/2022 6:48 AM EST 10/03/2022 6:48 AM EST [facility] External Provider LAB BLO OD ORDERABLES Final Result Performing Organization Address [facility] Co de Phone Number [facility] [address] [place] [phone] * HIV Ab/Ag ([place] DPH) (10/03/2022 6:48 AM EST) HIV AB/AG Nonreactive Nonreactive [facility] Comment:HIV-1 p24 Ag and/or HIV-1/HIV-2 Ab not detected.A test result that is nonreactive does not exclude thepossibility of exposure to or infection with HIV-1 and/orHIV-2. Nonreactive results in this assay for individualswith prior exposure to HIV-1 and/or HIV-2 may be due toantigen and antibody levels that are below the limit ofdetection of this assay.The [employer] Aide HIV Ag/Ab Combo assay result andsupplemental assay results should be interpreted inconjunction with the patient's clinical presentation,history and other laboratory results. If the results areinconsistent with clinical evidence, additional testing issuggested to confirm the result. 10/03/2022 6:48 AM EST 10/03/2022 6:48 AM EST [facility] External Provider LAB BLO OD ORDERABLES Final Result Performing Organization Address [facility] de Phone Number [facility] [address] [place] [phone] * Hepatitis C Ab (10/03/2022 6:48 AM EST) Hepatitis C Antibody Nonreactive Nonreactive [facility] Comment:Antibodies to HCV no t detected; does not exclude early acuteHCV infection. 10/03/2022 6:48 AM EST 10/03/2022 6:48 AM EST [facility] External Provider LAB BLO OD ORDERABLES Final Result Performing Organization Address [facility] de Phone Number [facility] [address] [place] [phone] * Hepatitis B Surface Antibody, Qualitative (10/03/2022 6:48 AM EST) ~Hepatitis B Surface Antibody NONREACTIVE Nonreactive [facility] Comment:Nonreactive: < 8.00 mIU/mL 10/03/2022 6:48 AM EST 10/03/2022 6:48 AM EST [facility] External Provider LAB BLO OD ORDERABLES Final Result Performing Organization Address [facility] de Phone Number [facility] [address] [place] [phone] * Albumin (10/03/2022 6:48 AM EST) Albumin Level 4.1 3.5 - 5.0 g/dL [facility] 10/03/2022 6:48 AM EST 10/03/2022 6:48 AM EST [facility] External Provider LAB BLO OD ORDERABLES Final Result Performing Organization Address [facility] Phone Number [facility] [address] [place] [phone] * ALT (10/03/2022 6:48 AM EST) Alanine Aminotransferase 24 0 - 31 U/L [facility] 10/03/2022 6:48 AM EST 10/03/2022 6:48 AM EST [facility] External Provider LAB BLO OD ORDERABLES Final Result Performing Organization Address [facility] Phone Number [facility] [address] [place] [phone] * AST (10/03/2022 6:48 AM EST) Aspartate Amino Transferase 22 5 - 31 U/L [facility] 10/03/2022 6:48 AM EST 10/03/2022 6:48 AM EST [facility] External Provider LAB BLO OD ORDERABLES Final Result Performing Organization Address [facility] Phone Number [facility] [address] [place] [phone] * Bilirubin, Total (10/03/2022 6:48 AM EST) Bilirubin, Total 0.3 0.0 - 1.0 mg/dL [facility] 10/03/2022 6:48 AM EST 10/03/2022 6:48 AM EST [facility] External Provider LAB BLO OD ORDERABLES Final Result Performing Organization Address [facility]/ZIP Co de Phone Number [facility] [address] [place] [address] [phone] * Glucose, Random (10/03/2022 6:48 AM EST) Glucose 113 60 - 115 mg/dL [facility] 10/03/2022 6:48 AM EST 10/03/2022 6:48 AM EST [facility] External Provider LAB BLO OD ORDERABLES Final Result Performing Organization Address City/[facility] Co de Phone Number [facility] [address] [place] [address] [phone] * Creatinine, Serum (10/03/2022 6:48 AM EST) Creatinine, Serum 0.86 0.5 - 1.4 mg/dL [facility] Estimated Glomerular Filt Rate >60 [facility] Comment:NOTE: For -Am erican individuals, multiply the result by 1.210.Chronic Kidney Disease: Estimated GFR < 60 mL/min/1.57x4Nmjyuh Kidney Disease: Estimated GFR < 15 mL/min/1.73m2 10/03/2022 6:48 AM EST 10/03/2022 6:48 AM EST [facility] External Provider LAB BLO OD ORDERABLES Final Result Performing Organization Address City/[facility]/ZIP Co de Phone Number [facility] [address] [place] [address] [phone] * (ABNORMAL) CBC auto differential (10/03/2022 6:48 AM EST) White Blood Count 4.7(L) 4.8 - 10.8 X10*3/uL [facility] Red Blood Count 4.22 4.20 - 5.50 X10*6/uL [facility] Hemoglobin 12.8 12.0 - 16.0 g/dl [facility] Hematocrit 38.2 37.0 - 47.0 % [facility] Mean Corpuscular Volume 90.5 80.0 - 98.0 fL [facility] Mean Corpuscular Hemoglobin 30.3 27.0 - 33.0 pg [facility] Mean Corpuscular HGB Conc 33.5 31.0 - 35.0 g/dl [facility] Red Cell Distribution Width 12.5 11.0 - 16.0 % [facility] Platelet Count 249 160 - 400 X10*3/uL [facility] Mean Platelet Volume 10.4 9.4 - 12.3 fL [facility] Neutrophils Percent Auto 50.8 45 - 73 % [facility] Imm Gran Pct Auto 0.4 0.0 - 0.4 % [facility] Lymphocytes Percent Auto 38.8 20 - 40 % [facility] Monocytes Percent Auto 6.0 2 - 11 % [facility] Eosinophils Percent Auto 3.4 0 - 4 % [facility] Basophils Percent Auto 0.6 0 - 2 % [facility] NRBC Pct Auto 0.0 0.0 - 0.2 /100WBC [facility] Neutrophils Absolute Auto 2.4 2.0 - 8.3 x10*3/uL [facility] Imm Gran Abs Auto 0.02 0.00 - 0.03 X10*3/uL [facility] Lymphocytes Absolute Auto 1.8 1.2 - 4.9 X10*3/uL [facility] Monocytes Absolute Auto 0.3 0.1 - 1.2 X10*3/uL [facility] Eosinophils Absolute Auto 0.2 0.0 - 0.4 X10*3/uL [facility] Basophils Absolute Auto 0.0 0.0 - 0.2 X10*3/uL [facility] NRBC Abs Auto 0.000 0.0 - 0.012 X10*3/uL [facility] 10/03/2022 6:48 AM EST 10/03/2022 6:48 AM EST us [facility] External Provider LAB BLO OD ORDERABLES Final Result [facility] [address] [place] [phone] documented in this encounter Visit Diagnoses Diagnosis Hypothyroidism, unspecified type- Primary documented in this encounter Care Teams Pasta Maker Relationship Specialty Start Date End Date Ashlee Meza MD [address] [place] [phone] PCP - General Family Medicine 03/28/20 08/17/24 Morgan Curran MD [address] [place] [phone] PCP - General Internal Medicine 08/18/24 documented as of this encounter
--- OUTSIDE RECORDS SUMMARY | 2024-09-29 17:09 | XMS_ITS | Encounter Summary ---
Author Organization [employer] [facility] Address [address] [place] [address] 7[place] [address] Care Team Providers Care Vortex Operator Name Role Phone Ashlee Meza MD Primary Care Provider [phone] Morgan Curran MD Primary Care Prov ider Encounter Details Date Type Department Care Team (Late Contact Info) Description 08/07/2022 Telephone [facility] MED & PEDS [address] [place] [address] Ashlee Meza MD [address] [place] [address] Social History Tobacco Use Types Packs/Day Years [...] [facility] [address] [place] [address] Ebenezer Acuña MD [address] [place] [address] documented as of this encounter Visit Diagnoses Not on filedocumented in this encounter Care Teams Vortex Operator Relationship Specialty Start Date End Date Ashlee Meza MD [address] [place] [phone] PCP - General Family Medicine 03/28/20 08/17/24 Morgan Curran MD [address] [place] [phone] PCP - General Internal Medicine 08/18/24 documented as of this encounter
--- OUTSIDE RECORDS SUMMARY | 2024-09-29 17:09 | XMS_ITS | Encounter Summary ---
Author Organization [employer] [facility] Address [address] [facility] 7t [place] [address] Care Team Providers Care Patent Prosecution Paralegal Name Role Phone Ashlee Meza MD Primary Care Provider [phone] Morgan Curran MD Primary Care Prov ider Reason for Visit * Reason Comments Med Refill Encounter Details Date Type Department Care Team ([facility] Contact Info) Description 09/14/[address] [facility] MEDICINE [address] [place], [place] [phone] Cornell Bucio FNP Anxiety (Primary Dx) Social [...] Upcoming Encounters Date Type Department Care Team ([facility] Contact Info) Description 10/06/2024 11:15 AM EDT Telemedicine [facility] CHC MED & PEDS [address] [place] [address] Ebenezer Acuña MD [address] [place] [address] documented as of this encounter Visit Diagnoses Diagnosis Anxiety- Primary Anxiety state, unspecified documented in this encounter Care Teams Patent Prosecution Paralegal Relationship Specialty Start Date End Date Ashlee Meza MD [address] [place] [phone] PCP - General Family Medicine 03/28/20 08/17/24 Morgan Curran MD [address] [place] [address] PCP - General Internal Medicine 08/18/24 documented as of this encounter
--- OUTSIDE RECORDS SUMMARY | 2024-09-29 17:09 | XMS_ITS | Encounter Summary ---
Author Organization [employer] [facility] Address [address] [facility] 7t [place] [address] Care Team Providers Care Technical Testing Engineer Name Role Phone Morgan Curran MD Primary [...] Upcoming Encounters Date Type Department Care Team ([facility] st Contact Info) Description 10/06/2024 11:15 AM EDT Telemedicine [facility] CHC MED & PEDS [address] [place] [address] Ebenezer Acuña MD [address] [place] [address] documented as of this encounter Procedures Procedure [...] EST Narrative 09/24/2024 12:39 AM EST ? [facility] ?[address] ?[place] [address] ? Ultrasound Report ? Signed ? Patient: Marshall,Ashley ?MR#: [id number] ?? 73 ? : 1970 ?Acct:[id number] ? Age/Sex: 53 / F ?ADM Date: 09/23/24 ? Loc: HO.ED ? Attending Dr: ? Ordering Physician: Jocelyne Schroeder MD ?? Date of Service: 09/23/24 ?? Procedure(s): US abdomen limited ?? Accession Number(s): [id number] ? cc: Morgan Curran MD; Jocelyne Schroeder MD ? CLINICAL HISTORY: RUQ pain ? US abdomen limited ? Comparison: [place]/SR - US ABDOMEN COMPLETE - 09/18/23 08:55 [...] DD/ 0038 ? TD/TT: 09/24/24 0038 ? Traffic Court Magistrate: ? Procedure Note Gunnarmarceroscoenatalie, Image - 09/24/2024 [place] [address] Ultrasound Report Signed Patient: Ashley OlivaresMR#: [id number] 73 : 1970Acct:[id number] Age/Sex: 53 / FADM Date: 09/23/24 Loc: HO.ED Attending Dr: Ordering Physician: Jocelyne Schroeder MD Date of Service: 09/23/24 Procedure(s): US abdomen limited Accession Number(s): [id number] cc: Morgan Curran MD; Jocelyne Schroeder MD CLINICAL HISTORY: RUQ pain US abdomen limited Comparison: US/[place]/SR - US ABDOMEN COMPLETE - 09/18/23 08:55 [...] MD in OV> 09/24/2438 DD/ TD/TT: 09/24/[address] Magistrate: us [facility] External Provider IMG US PROCEDURES Edited Result - Final * Lipase (09/23/2024 5:09 PM EST) Lipase 41 8 - 78 U/L [facility] 09/23/2024 5:09 PM EST 09/23/2024 5:12 PM EST Generic External Data Provider LAB BLOOD ORDERAB LES Final Result [facility] [address] [place] [phone] * (ABNORMAL) Comprehensive Metabolic Panel (09/23/2024 5:09 PM EST) Sodium 140 135 - 145 mmol/L [facility] Potassium 3.6 3.3 - 5.1 mmol/L [facility] Chloride 109(H) 96 - 108 mmol/L [facility] Carbon Dioxide 23 22 - 29 mmol/L [facility] Anion Gap 12 12 - 20 [facility] Urea Nitrogen (BUN) 12 9 - 16 mg/dL [facility] Creatinine, Serum 0.86 0.5 - 1.4 mg/dL [facility] Creatinine Clr Calc Pharmacy 64.1 [facility] Comment:Provided height and weight: 152.4 cm,67.585 kg.eGFR (calculated from the MDRD study equation) and eCrCl(calculated from the Cockcroft-Gault equation) are based ondifferent parameters and may not yield comparable results.If eCrCl result is absurd, please check patient'sheight/weight. Estimated Glomerular Filt Rate >60 [facility] Comment:Chronic Kidney Disea se: Estimated GFR < 60 mL/min/1.38k5Mezasp Kidney Disease: Estimated GFR < 15 mL/min/1.73m2 Glucose 136(H) 60 - 115 mg/dL [facility] Calcium 9.2 8.4 - 10.2 mg/dL [facility] Bilirubin, Total 0.4 0.0 - 1.0 mg/dL [facility] Aspartate Amino Transferase 29 5 - 31 U/L [facility] Alanine Aminotransferase 47(H) 0 - 31 U/L [facility] Total Protein 7.8 6.5 - 8.0 g/dL [facility] Albumin Level 4.2 3.5 - 5.0 g/dL [facility] Alkaline Phosphatase 85 39 - 117 U/L [facility] 09/23/2024 5:09 PM EST 09/23/2024 5:12 PM EST us Generic External Data Provider LAB BLOOD ORDERAB LES Final Result [facility] [address] [place] [phone] * (ABNORMAL) CBC auto differential (09/23/2024 5:09 PM EST) White Blood Count 5.5 4.8 - 10.8 X10*3/uL [facility] Red Blood Count 4.17(L) 4.20 - 5.50 X10*6/uL [facility] Hemoglobin 13.1 12.0 - 16.0 g/dl [facility] Hematocrit 37.9 37.0 - 47.0 % [facility] Mean Corpuscular Volume 90.9 80.0 - 98.0 fL [facility] Mean Corpuscular Hemoglobin 31.4 27.0 - 33.0 pg [facility] Mean Corpuscular HGB Conc 34.6 31.0 - 35.0 g/dl [facility] Red Cell Distribution Width 12.7 11.0 - 16.0 % [facility] Platelet Count 276 160 - 400 X10*3/uL [facility] Mean Platelet Volume 9.9 9.4 - 12.3 fL [facility] Neutrophils Percent Auto 50.5 45 - 73 % [facility] Imm Gran Pct Auto 0.5(H) 0.0 - 0.4 % [facility] Lymphocytes Percent Auto 40.2(H) 20 - 40 % [facility] Monocytes Percent Auto 5.8 2 - 11 % [facility] Eosinophils Percent Auto 2.5 0 - 4 % [facility] Basophils Percent Auto 0.5 0 - 2 % [facility] NRBC Pct Auto 0.0 0.0 - 0.2 /100WBC [facility] Neutrophils Absolute Auto 2.8 2.0 - 8.3 x10*3/uL [facility] Imm Gran Abs Auto 0.03 0.00 - 0.03 X10*3/uL [facility] Lymphocytes Absolute Auto 2.2 1.2 - 4.9 X10*3/uL [facility] Monocytes Absolute Auto 0.3 0.1 - 1.2 X10*3/uL [facility] Eosinophils Absolute Auto 0.1 0.0 - 0.4 X10*3/uL [facility] Basophils Absolute Auto 0.0 0.0 - 0.2 X10*3/uL [facility] NRBC Abs Auto 0.000 0.0 - 0.012 X10*3/uL [facility] 09/23/2024 5:09 PM EST 09/23/2024 5:12 PM EST us Generic External Data Provider LAB BLOOD ORDERAB LES Final Result [facility] [address] [place] [address] [phone] * Urinalysis, Complete, with Reflex to Culture (09/23/2024 5:09 PM EST) Color Urine Yellow [facility] Appearance Urine Clear [facility] PH 6.0 5.0 - 9.0 [facility] Glucose Urine UA Negative Negative mg/dL [facility] Urine Blood Negative Negative [facility] Specific [place] - Urine <=1.005 1.005 - 1.025 [facility] Urine Protein Negative Neg-Trace mg/dL [facility] Urine Ketones Negative Negative mg/dL [facility] Nitrite Urine Negative Negative [facility] Leukocyte Esterase Urine Negative Negative [facility] RBC Urine 0-2 0 - 2 /HPF [facility] Urine WBC 0-5 0 - 5 /HPF [facility] Urine Squamous Epithelial Cell 0-2 0 - 2 /HPF [facility] Urine Bacteria None Seen None Seen [facility] Hyaline Casts, Urine 0-2 0 - 2 /LPF [facility] 09/23/2024 5:09 PM EST 09/23/2024 5:12 PM EST Narrative [facility] - 09/23/2024 5:35 PM EST [id number], [employer] us Generic External Data Provider LAB URINE ORDERAB LES Final Result [facility] [address] [place] [address] [phone] documented in this encounter Visit Diagnoses Not on filedocumented in this encounter Additional Health Concerns Assessment Noted Time PHQ-9 Depression Total Score: 8 05/25/20 24 8:54 AM EDT documented as of this encounter Care Teams Technical Testing Engineer Relationship Specialty Start Date End Date Morgan Curran MD [address] [place] [address] PCP - General Internal Medicine 08/18/24 documented as of this encounter
--- OUTSIDE RECORDS SUMMARY | 2024-09-29 17:09 | XMS_ITS | Encounter Summary ---
Author Organization [employer] [facility] Address [address] [facility] 7t [place] [address] Care Team Providers Care Product Steward Name Role Phone Ashlee Meza MD Primary Care Provider [phone] Morgan Curran MD Primary Care Prov ider Reason for Visit * Reason Comments Med Refill Encounter Details Date Type Department Care Team ([facility] Contact Info) Description 08/05/2023 Refill [facility] MED & PEDS [address] [place] [address] Ashlee Meza MD [address] [place] [address] Social History Tobacco Use Types Packs/Day Years [...] Upcoming Encounters Date Type Department Care Team ([facility] st Contact Info) Description 10/06/2024 11:15 AM EDT Telemedicine [facility] MED & PEDS [address] [place] [address] Ebenezer Acuña MD [address] [place] [address] documented as of this encounter Visit Diagnoses Not on filedocumented in this encounter Additional Health Concerns Assessment Noted Time PHQ-9 Depression Total Score: 6 04/22/20 23 9:18 AM EDT documented as of this encounter Care Teams Product Steward Relationship Specialty Start Date End Date Ashlee Meza MD [address] [place] [phone] PCP - General Family Medicine 03/28/20 08/17/24 Morgan Curran MD [address] [place] [address] PCP - General Internal Medicine 08/18/24 documented as of this encounter
--- OUTSIDE RECORDS SUMMARY | 2024-09-29 17:09 | XMS_ITS | Encounter Summary ---
Author Organization [employer] Address [address] [facility] 7t [place] [address] Care Team Providers Care Ad Setter Name Role Phone Morgan Curran MD Primary Care Prov ider Reason for Visit * Reason Comments Fever Headache Encounter Details Date Type Department Care Team ([facility] st Contact Info) Description 09/16/2024 2:20 PM EST Office Visit [facility] MED & PEDS [address] [place], [place] [phone] Adriana Brock MD 505 [place] [address] Influenza A Social History Tobacco Use Types [...] the past 12 months, has t he [email or web address], gas, oil or water company threatened to [...] 10/06/2024 11:15 AM EDT Telemedicine [facility] MED & PEDS [address] [place] [address] Ebenezer Acuña MD [address] [place] [address] documented as of this encounter Procedures Procedure Name Priority Date/Time Associated Diagnosis Comments POCT RAPID COVID ANTIGEN Routine 09/16/2024 2:35 PM EST Influenza A POCT INFLUENZA B Routine 09/16/2024 2:35 PM EST Influenza A POCT INFLUENZA A Routine 09/16/2024 2:34 PM EST Influenza A documented in this encounter Results * POCT Rapid Covid-19 BinaxNOW (09/16/2024 2:35 PM EST) [facility] Rapid COVID Ag Negative QC Media Lot # [id number] Lot# Expiration Date 7,026 Swab 09/16/2024 2:35 PM EST Adriana Brock MD POINT OF CARE TEST ENTER/EDIT OR DERABLES Final Result * POCT Rapid Influenza B OSOM (09/16/2024 2:35 PM EST) [facility] Rapid Influenza B Ag Negative Negative, Indeterminate QC Media Lot # [id number] Lot# Expiration Date Swab 09/16/2024 2:35 PM EST Result [facility] Adriana Brock MD POINT OF CARE TEST ENTER/EDIT OR DERABLES Final Result * (ABNORMAL) POCT Rapid Influenza A OSOM (09/16/2024 2:34 PM EST) [facility] Rapid Influenza A Ag Positive( A) [...] documented as of this encounter Care Teams Ad Setter Relationship Specialty Start Date End Date Morgan Curran MD [address] [place] [address] PCP - General Internal Medicine 08/18/24 documented as of this encounter
--- OUTSIDE RECORDS SUMMARY | 2024-09-29 17:09 | XMS_ITS | Encounter Summary ---
Author Organization [employer] Address [address] [facility] 7 [place] [address] Care Team Providers Care Aircraft Sheet Metal Mechanic Name Role Phone Morgan Curran MD Primary Care Prov ider Reason for Visit * Reason Onset Date Comments Switch appointment 09/28/2024 Encounter Details Date Type Department Care Team (Late st Contact Info) Description 09/28/2024 Telephone [facility] MEDICINE [address] [place] [address] Morgan Curran MD [address] [place] [address] Switch appointment Social History Tobacco Use Types [...] the past 12 months, has t he [employer], gas, oil or water company threatened to [...] Description 10/06/2024 11:15 AM EDT Telemedicine [facility] MED & PEDS [address] [place] [address] Ebenezer Acuña MD [address] [place] [address] documented as of this encounter Visit Diagnoses Not on filedocumented in this encounter Additional Health Concerns Assessment Noted Time PHQ-9 Depression Total Score: 8 05/25/20 24 8:54 AM EDT documented as of this encounter Care Teams Aircraft Sheet Metal Mechanic Relationship Specialty Start Date End Date Morgan Curran MD [address] [place] [address] PCP - General Internal Medicine 08/18/24 documented as of this encounter
--- OUTSIDE RECORDS SUMMARY | 2024-09-29 17:09 | XMS_ITS | Encounter Summary ---
Author Organization [employer] [facility] Address [address] [place] [address] 7t [place] [address] Care Team Providers Care Credit Risk Review Officer Name Role Phone Ashlee Meza MD Primary Care Provider [phone] Morgan Curran MD Primary Care Prov ider Reason for Visit * Reason Onset Date Comments triage 12/04/2022 Encounter Details Date Type Department Care Team ([facility] st Contact Info) Description 12/04/2022 Telephone [facility] CH[facility] MED & PEDS [address] [place], [place] [phone] Ashlee Meza MD 505 [place], [place] [phone] triage Social History Tobacco Use Types Packs/Day [...] 12/04/2022 11:13 AM EDT Triage call with [employer] Chief Communications Officer [place] [id number] Pt reports for two days now, itchy [...] Upcoming Encounters Date Type Department Care Team ([facility] st Contact Info) Description 10/06/2024 11:15 AM EDT Telemedicine [facility] MED & PEDS [address] [place] [phone] Ebenezer Acuña MD [address] [place] [address] documented as of this encounter Visit Diagnoses Not on filedocumented in this encounter Additional Health Concerns Assessment Noted Time PHQ-9 Depression Total Score: 5 10/31/19 23 9:17 AM EDT documented as of this encounter Care Teams Credit Risk Review Officer Relationship Specialty Start Date End Date Ashlee Meza MD [address] [place] [phone] PCP - General Family Medicine 03/28/20 08/17/24 Morgan Curran MD [address] [place] [address] PCP - General Internal Medicine 08/18/24 documented as of this encounter
--- OUTSIDE RECORDS SUMMARY | 2024-09-29 17:09 | XMS_ITS | Encounter Summary ---
Author Organization [employer] Address [address] [facility] 7t [place] [address] Care Team Providers Care Converter Skimmer Name Role Phone Morgan Curran MD Primary Care Prov ider Reason for Visit * Reason Onset Date Comments Med Refill 09/15/2024 Encounter Details Date Type Department Care Team (Late st Contact Info) Description 09/15/2024 Refill [facility] CHC MED & PEDS [address] [place] [address] Ashlee Meza MD 505 [place] [address] Spasm of cervical paraspinous muscle Social History [facility] [address] [place] [address] Ebenezer Acuña MD 505 [place] [address] documented as of this encounter Visit Diagnoses Diagnosis Spasm of cervical paraspinous muscle Spasm of muscle documented in this encounter Additional Health Concerns Assessment Noted Time PHQ-9 Depression Total Score: 8 05/25/20 24 8:54 AM EDT documented as of this encounter Care Teams Converter Skimmer Relationship Specialty Start Date End Date Morgan Curran MD [address] [place] [address] PCP - General Internal Medicine 08/18/24 documented as of this encounter
== END 2024-09-29 14:20 | disposition home or self-care (01) ==
PROVIDERS: PCP Internal Medicine; Visit Provider Surgery
DX: K80.50 Calculus of bile duct without cholangitis or cholecystitis without obstruction (principal)
CPT/HCPCS: 99213

== ENCOUNTER 2024-11-27 08:31 | Outpatient (REF) | payer MEDICAID, SELFPAY ==
[2024-11-27 08:52] LABS: MANUAL DIFF FLAG NO
--- OUTSIDE RECORDS SUMMARY | 2024-11-27 08:56 | XMS_ITS | Encounter Summary ---
Author Organization [facility] Address [address] [facility] 7t [place] [address] Care Team Providers Care Wire Brush Maker Name Role Phone Ashlee Meza MD Primary Care Provider [phone] Morgan Curran MD Primary Care Prov ider Reason for Visit * Reason Comments Med Refill Encounter Details Date Type Department Care Team ([facility] Contact Info) Description 03/12/2024 Refill [facility] MED & PEDS [address] [place] [address] Ashlee Meza MD 505 [place] [address] Social History Tobacco Use Types Packs/Day Years [...] Care Team (Late st Contact Info) Description 12/23/2024 11:30 AM EDT Telemedicine [facility] MED & PEDS [address] [place] [address] Morgan Curran MD 505 [place] [address] documented as of this encounter Visit Diagnoses Not on filedocumented in this encounter Additional Health Concerns Assessment Noted Time PHQ-9 Depression Total Score: 6 04/22/20 23 9:18 AM EDT documented as of this encounter Care Teams Wire Brush Maker Relationship Specialty Start Date End Date Ashlee Meza MD [address] [place] [address] PCP - General Family Medicine 03/28/20 08/17/24 Morgan Curran MD 505 [place] [address] PCP - General Internal Medicine 08/18/24 documented as of this encounter
--- OUTSIDE RECORDS SUMMARY | 2024-11-27 08:56 | XMS_ITS | Encounter Summary ---
Author Organization [employer] [facility] Address [address] [place] [address] 7 [place] [address] Care Team Providers Care Regional Geodetic Advisor Name Role Phone Ashlee Meza MD Primary Care Provider [phone] Morgan Curran MD Primary Care Prov ider Encounter Details Date Type Department Care Team (Late Contact Info) Description 08/07/2022 Telephone [facility] MED & PEDS [address] [place] [address] Ashlee Meza MD 505 [place] [address] Social History Tobacco Use Types Packs/Day Years [...] Department Care Team (Late Contact Info) Description 12/23/2024 11:30 AM EDT Telemedicine [facility] MED & PEDS [address] [place], [place] [phone] Morgan Curran MD 505 [place] [address] documented as of this encounter Visit Diagnoses Not on filedocumented in this encounter Care Teams Regional Geodetic Advisor Relationship Specialty Start Date End Date Ashlee Meza MD [address] [place] [phone] PCP - General Family Medicine 03/28/20 08/17/24 Morgan Curran MD [address] [place] [address] PCP - General Internal Medicine 08/18/24 documented as of this encounter
--- OUTSIDE RECORDS SUMMARY | 2024-11-27 08:56 | XMS_ITS | Encounter Summary ---
Author Organization [employer] [facility] Address [address] [facility] 7t [place] [address] Care Team Providers Care Safety Instructor Name Role Phone Ashlee Meza MD Primary Care Provider [phone] Morgan Curran MD Primary Care Prov ider Encounter Details Date Type Department Care Team (Late Contact Info) Description 09/14/2022 Orders Only [facility] MEDICINE [address] [place] [address] Adriana Brock MD 505 [place] [address] Hypothyroidism, unspecified type (Primary Dx) Social History [...] Upcoming Encounters Date Type Department [facility] Team ([facility] Description 12/23/2024 11:30 AM EDT Telemedicine [facility] CHC MED & PEDS [address] [place] [address] Morgan Curran MD 505 [place] [address] documented as of this encounter Procedures Procedure Name Priority Date/Time Associated Diagnosis Comments TSH W/REFLEX TO FT4 Routine 2022 8 :28 AM EDT Hypothyroidism, unspecified type HEPATITIS C ANTIBODY Routine 10/03/2022 6:48 AM EST Hypothyroidism, unspecified type HIV ANTIBODY/ANTIGEN (CT DPH) Routine 10/03/2022 6:48 AM EST Hypothyroidism, [...] Free T4 1.16 0.32 - 4.0 uIU/mL [facility] 2022 8:28 AM EDT 2022 8:28 AM EDT [facility] External Provider LAB BLO OD ORDERABLES Final Result Performing Organization Address City/State/[facility] Co de Phone Number [facility] [address] [place] [phone] * Hepatitis??D Virus (HDV) Antibody, Total (10/03/2022 6:48 AM EST) Hepatitis D Antibody, Total NEGATIVE [facility] Comment:REFERENCE RANGE: NEG ATIVE INTERPRETIVE CRITERIA: [...] and its analyticalperformance characteristics have been determinedby [employer]. It has not been cleared orapproved by FDA. This assay has been validatedpursuant to the CLIA regulations and is used forclinical purposes.THIS TEST WAS PERFORMED AT:[facility] [id number] [place] [address]JIZUCKARLEY OROZCO MD,PHD,LYNN 10/03/2022 6:48 AM EST 10/03/2022 6:48 AM EST [facility] External Provider LAB BLO OD ORDERABLES Final Result Performing Organization Address [facility] Co de Phone Number [facility] [address] [place] [phone] * Hepatitis B Core??Antibody (IgM) (10/03/2022 6:48 AM EST) Hepatitis B Core Antibody IgM NON-REACTI VE NON-REACT KIM [facility] Comment:THIS TEST WAS PERFOR MED AT:[facility] [address] [id number] ALBERTS MD 10/03/2022 6:48 AM EST 10/03/2022 6:48 AM EST [facility] External Provider LAB BLO OD ORDERABLES Final Result Performing Organization Address [facility] de Phone Number [facility] [address] [place] [phone] * (ABNORMAL) Hepatitis B Virus DNA, Quantitative, Real-Time PCR (10/03/2022 6:48 AM EST) Hepatitis B Viral DNA Qn - cp 2.83(A) NOT DETECTED Log IU/mL [facility] Comment:This test was perfor med using Real-Time Polymerase ChainReaction.Reportable Range: 10 IU/mL to 1,000,000,000 IU/mL.(1.00 Log IU/mL to 9.00 Log IU/mL).The analytical performance characteristics of this assayhave been determined by [employer]. Themodifications have not been cleared or approved by theA. This assay has been validated pursuant to the CLIAregulations and is used for clinical purposes.THIS TEST WAS PERFORMED AT:[facility] [address] [id number] ALBERTS MD Hepatitis B Viral DNA Qn-IU/mL 683(A) NOT DETECTED IU/mL [facility] 10/03/2022 6:48 AM EST 10/03/2022 6:48 AM EST [facility] External Provider LAB BLO OD ORDERABLES Final Result Performing Organization Address City/[facility]/ZIP Co de Phone Number [facility] [address] [place] [phone] * (ABNORMAL) Hepatitis B Surface Antigen with Reflex Confirmation (10/03/2022 6:48 AM EST) Hepatitis B Surface Ag Confirmed Pos(A) Negative [facility] Comment:RESULTS OF CALLED TO AND READ BACK BY AT 1126 BY WENCESLAO.Results of HBSAG called to and read back byon 10/05/22 at 1134 by WENCESLAO. 10/03/2022 6:48 AM EST 10/03/2022 6:48 AM EST [facility] External Provider LAB BLO OD ORDERABLES Final Result Performing Organization Address [facility] Co de Phone Number [facility] [address] [place] [phone] * HIV Ab/Ag ([place] DPH) (10/03/2022 6:48 AM EST) HIV AB/AG Nonreactive Nonreactive [facility] Comment:HIV-1 p24 Ag and/or HIV-1/HIV-2 Ab not detected.A test result that is nonreactive does not exclude thepossibility of exposure to or infection with HIV-1 and/orHIV-2. Nonreactive results in this assay for individualswith prior exposure to HIV-1 and/or HIV-2 may be due toantigen and antibody levels that are below the limit ofdetection of this assay.The [employer]retcher HIV Ag/Ab Combo assay result andsupplemental assay results should be interpreted inconjunction with the patient's clinical presentation,history and other laboratory results. If the results areinconsistent with clinical evidence, additional testing issuggested to confirm the result. 10/03/2022 6:48 AM EST 10/03/2022 6:48 AM EST [facility] External Provider LAB BLO OD ORDERABLES Final Result Performing Organization Address [facility] de Phone Number [facility] [address] [place] [phone] * Hepatitis C Ab (10/03/2022 6:48 AM EST) Hepatitis C Antibody Nonreactive Nonreactive [facility] Comment:Antibodies to HCV no t detected; does not exclude early acuteHCV infection. 10/03/2022 6:48 AM EST 10/03/2022 6:48 AM EST [facility] External Provider LAB BLO OD ORDERABLES Final Result Performing Organization Address [facility] de Phone Number [facility] [address] [place] [phone] * Hepatitis B Surface Antibody, Qualitative (10/03/2022 6:48 AM EST) ~Hepatitis B Surface Antibody NONREACTIVE Nonreactive [facility] Comment:Nonreactive: < 8.00 mIU/mL 10/03/2022 6:48 AM EST 10/03/2022 6:48 AM EST [facility] External Provider LAB BLO OD ORDERABLES Final Result Performing Organization Address [facility] de Phone Number [facility] [address] [place] [phone] * Albumin (10/03/2022 6:48 AM EST) Albumin Level 4.1 3.5 - 5.0 g/dL [facility] 10/03/2022 6:48 AM EST 10/03/2022 6:48 AM EST [facility] External Provider LAB BLO OD ORDERABLES Final Result Performing Organization Address [facility] Phone Number [facility] [address] [place] [phone] * ALT (10/03/2022 6:48 AM EST) Alanine Aminotransferase 24 0 - 31 U/L [facility] 10/03/2022 6:48 AM EST 10/03/2022 6:48 AM EST [facility] External Provider LAB BLO OD ORDERABLES Final Result Performing Organization Address [facility] Phone Number [facility] [address] [place] [phone] * AST (10/03/2022 6:48 AM EST) Aspartate Amino Transferase 22 5 - 31 U/L [facility] 10/03/2022 6:48 AM EST 10/03/2022 6:48 AM EST [facility] External Provider LAB BLO OD ORDERABLES Final Result Performing Organization Address [facility] Phone Number [facility] [address] [place] [phone] * Bilirubin, Total (10/03/2022 6:48 AM EST) Bilirubin, Total 0.3 0.0 - 1.0 mg/dL [facility] 10/03/2022 6:48 AM EST 10/03/2022 6:48 AM EST [facility] External Provider LAB BLO OD ORDERABLES Final Result Performing Organization Address [facility]/ZIP Co de Phone Number [facility] [address] [place] [phone] [phone] * Glucose, Random (10/03/2022 6:48 AM EST) Glucose 113 60 - 115 mg/dL [facility] 10/03/2022 6:48 AM EST 10/03/2022 6:48 AM EST [facility] External Provider LAB BLO OD ORDERABLES Final Result Performing Organization Address City/[facility] Co de Phone Number [facility] [address] [place] [phone] [phone] * Creatinine, Serum (10/03/2022 6:48 AM EST) Creatinine, Serum 0.86 0.5 - 1.4 mg/dL [facility] Estimated Glomerular Filt Rate >60 [facility] Comment:NOTE: For -Am erican individuals, multiply the result by 1.210.Chronic Kidney Disease: Estimated GFR < 60 mL/min/1.55q4Ppyxxm Kidney Disease: Estimated GFR < 15 mL/min/1.73m2 10/03/2022 6:48 AM EST 10/03/2022 6:48 AM EST [facility] External Provider LAB BLO OD ORDERABLES Final Result Performing Organization Address City/[facility]/ZIP Co de Phone Number [facility] [address] [place] [phone] * (ABNORMAL) CBC auto differential (10/03/2022 6:48 AM EST) White Blood Count 4.7(L) 4.8 - 10.8 X10*3/uL [facility] Red Blood Count 4.22 4.20 - 5.50 X10*6/uL [facility] Hemoglobin 12.8 12.0 - 16.0 g/dl [facility] Hematocrit 38.2 37.0 - 47.0 % [facility] Mean Corpuscular Volume 90.5 80.0 - 98.0 fL [facility] Mean Corpuscular Hemoglobin 30.3 27.0 - 33.0 pg [facility] Mean Corpuscular HGB Conc 33.5 31.0 - 35.0 g/dl [facility] Red Cell Distribution Width 12.5 11.0 - 16.0 % [facility] Platelet Count 249 160 - 400 X10*3/uL [facility] Mean Platelet Volume 10.4 9.4 - 12.3 fL [facility] Neutrophils Percent Auto 50.8 45 - 73 % [facility] Imm Gran Pct Auto 0.4 0.0 - 0.4 % [facility] Lymphocytes Percent Auto 38.8 20 - 40 % [facility] Monocytes Percent Auto 6.0 2 - 11 % [facility] Eosinophils Percent Auto 3.4 0 - 4 % [facility] Basophils Percent Auto 0.6 0 - 2 % [facility] NRBC Pct Auto 0.0 0.0 - 0.2 /100WBC [facility] Neutrophils Absolute Auto 2.4 2.0 - 8.3 x10*3/uL [facility] Imm Gran Abs Auto 0.02 0.00 - 0.03 X10*3/uL [facility] Lymphocytes Absolute Auto 1.8 1.2 - 4.9 X10*3/uL [facility] Monocytes Absolute Auto 0.3 0.1 - 1.2 X10*3/uL [facility] Eosinophils Absolute Auto 0.2 0.0 - 0.4 X10*3/uL [facility] Basophils Absolute Auto 0.0 0.0 - 0.2 X10*3/uL [facility] NRBC Abs Auto 0.000 0.0 - 0.012 X10*3/uL [facility] 10/03/2022 6:48 AM EST 10/03/2022 6:48 AM EST us [facility] External Provider LAB BLO OD ORDERABLES Final Result [facility] [address] [place] [phone] documented in this encounter Visit Diagnoses Diagnosis Hypothyroidism, unspecified type- Primary documented in this encounter Care Teams Safety Instructor Relationship Specialty Start Date End Date Ashlee Meza MD [address] [place] [phone] PCP - General Family Medicine 03/28/20 08/17/24 Morgan Curran MD [address] [place] [place] [address] PCP - General Internal Medicine 08/18/24 documented as of this encounter
--- OUTSIDE RECORDS SUMMARY | 2024-11-27 08:56 | XMS_ITS | Clinical Summary ---
Author Organization [email or web address] Address [address] [place] [address] [address] [place] [address] Care Team Providers Care Strip Presser Name Role Phone Morgan Curran MD Primary Care Prov ider Allergies Active Allergy Reactions Criticality Noted Date Comments Amoxicillin 08/21/2013 Other reaction(s): Itching,SOB Aspirin Swelling 07/14/2012 Glutaral 08/04/2010 Other reaction(s): Avoid Sulfa, Dapsone, Nitrofu Ibuprofen 08/04/2010 Other reaction(s): difficulty breathing Medications PARoxetine (Paxil) 20 MG tabletIndicatio ns:Anxiety Take 1 tablet (20 mg) by mouth in the morning. 90 tablet 1 04/22/20 23 Active topiramate (Topamax) 25 MG tablet TAKE ONE TABLET BY MOUTH EVERY TWELVE HOURS 180 tablet 1 07/26/20 23 Active montelukast (Singulair) 10 MG tablet TAKE ONE TABLET EVERY EVENING FOR ALLERGY 90 tablet 2 08/22/19 24 Active simethicone (Mylicon) 125 MG chewable tablet CHEW ONE TABLET THREE OR FOUR TIMES DAILY DAILY NEEDED 12/31/19 24 Active albuterol (2.5 MG/3ML) 0.083% nebulizer solutionIndicat ions:Moderate persistent asthma, unspecified whether complicated INHALE ONE [...] 24 Active hydrOXYzine HCl (Atarax) 25 MG tabletIndicatio ns:Mixed anxiety and depressive disorder TAKE ONE TABLET EVERY 8 HOURS NEEDED FOR ANXIETY 90 tablet 3 05/26/20 24 Active Arnuity Ellipta 100 MCG/ACT inhaler INHALE ONE PUFF EVERY MORNING, RINSE MOUTH AFTER USE 30 each 5 06/08/20 24 Active Blood Pressure kit 1 Units Once per day. 1 kit 06/10/20 24 Active albuterol 108 (90 Base) MCG/ACT inhalerIndicati ons:Moderate persistent asthma, unspecified whether complicated INHALE TWO PUFFS EVERY 4 HOURS NEEDED FOR WHEEZING 18 g 4 07/06/20 24 Active clonazePAM (KlonoPIN) 1 MG tabletIndicatio ns:Mixed anxiety and depressive disorder Take 1 tablet (1 mg) by mouth 2 times daily. 56 tablet 1 07/31/19 25 Active esomeprazole (NexIUM) [address] capsule Take 1 capsule (20 mg) by mouth before breakfast. Do not open capsule. 30 capsule 11 09/16/19 25 026 Active Acetaminophen Extra Strength 500 MG tabletIndicatio ns:Spasm of cervical paraspinous muscle TAKE ONE TABLET EVERY 6 HOURS NEEDED (PAIN) 50 tablet 3 09/16/19 25 Active azithromycin (Zithromax Z-Elmer) 250 MG tablet Take 2 tabs day 1 and then 1 tab daily to finish 6 tablet 09/16/19 25 Active Dextromethorpha n-guaiFENesin (Mucinex DM) 30-600 MG tablet sustained-relea se 12 hour Use 1 tab TID 28 tablet 09/16/19 25 Active levothyroxine (Synthroid, Levoxyl) 75 MCG tabletIndicatio ns:Hypothyroidi sm, unspecified type TAKE ONE TABLET EVERY MORNING SATURDAY ,, SATURDAY, SATURDAY 48 tablet 1 10/03/19 25 Active amLODIPine (Norvasc) 5 MG tablet TAKE ONE TABLET EVERY MORNING (FOR BLOOD PRESSURE) 30 tablet 11 10/27/19 25 Active fluticasone (Flonase) 50 MCG/ACT nasal spray Administer 1-2 sprays into each nostril Once per day. Shake gently. Before first use, prime pump. After use, clean tip and replace cap. 16 g 11 11/12/19 25 026 Active hydroCHLOROthia zide 12.5 MG tabletIndicatio ns:Primary hypertension Take 1 tablet (12.5 mg) by mouth Once per day. 30 tablet 11 11/21/19 25 026 Active mometasone (Nasonex) 50 MCG/ACT nasal sprayIndication s:Allergic rhinitis, unspecified seasonality, unspecified trigger Administer 2 sprays into each nostril Once per day. 17 g 2 11/21/19 25 Active loratadine (Claritin) 10 MG tabletIndicatio ns:Allergic rhinitis, unspecified seasonality, unspecified trigger TAKE ONE TABLET BY MOUTH EVERY DAY FOR ALLERGIES 90 tablet 1 11/21/19 25 Active loratadine (Claritin) 10 MG tablet TAKE ONE TABLET BY MOUTH EVERY DAY FOR ALLERGIES 90 tablet 1 03/17/20 24 025 Discontinued(R eorder (will not trigger notification to Pharmacy)) mometasone (Nasonex) 50 MCG/ACT nasal spray Administer 2 sprays into each nostril Once per day. 17 g 2 07/31/19 25 025 Discontinued(R eorder (will not trigger notification to Pharmacy)) Active Problems Problem Noted Date Diagnosed Date [...] screening. Will continue monitoring following ASCCP guidelines. 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 Mixed anxiety and depressive disorder [...] Encounters Date Type Department Care Team Description 11/20/2024 2:40 PM EDT Office Visit [facility] [address] [place] [address] Ebenezer Acuña MD Unilateral subjective nonpulsatile tinnitus without hearing loss, otoscopic finding, neurologic deficit, or head trauma (Primary Dx); Deficiency of zindoed-8-tmaqbayyh dehydrogenase; Primary hypertension; Allergic rhinitis, unspecified seasonality, unspecified trigger 11/20/2024 Travel 11/20/2024 Telephone [facility] [address], [place] [phone] Morgan Curran MD Nurse Triage 11/11/2024 Refill [facility] [address] [place] [address] Morgan Curran MD 10/28/2024 Population Health Risk Score Community [facility] ([facility] Department [address] [phone] Provider, Population Health Generic 10/24/2024 Refill [facility] [address] [place] [address] Ashlee Meza MD 10/06/2024 11:15 AM EDT Telemedicine [facility] [address] [place] [address] Ebenezer Acuña MD Adenomyomatosis of gallbladder (Primary Dx); Right upper quadrant abdominal pain 10/06/2024 Travel 10/02/[address] [phone] Ashlee Meza MD Hypothyroidism, unspecified type 09/28/2024 Telephone [facility] [address] [place], [place] [phone] Morgan Curran MD No Show 09/28/[address] [phone] Morgan Curran MD Switch appointment 09/25/2024 Telephone [facility] [address] [place], [place] [phone] Morgan Curran MD ER Follow-up 09/24/2024 Telephone [facility] [address] [place], [place] [phone] Morgan Curran MD ER Follow-up 09/23/2024 3:20 PM EST Office Visit [facility] [address] [place], [place] [phone] Ebenezer Acuña MD Adenomyomatosis of gallbladder (Primary Dx); Right upper quadrant pain 09/23/2024 Orders Only GENERIC EXTERNAL DATA DEPARTMENT Provider, Generic External Data 09/23/2024 Travel 09/23/2024 Telephone [facility] [address] [place], [place] [phone] Morgan Curran MD Nurse Triage 09/16/2024 2:20 PM EST Office Visit [facility] [address] [place], [place] [phone] Adriana Brock MD Influenza A 09/16/2024 Travel 09/15/2024 Refill [facility] [address] [place] [address] Ashlee Meza MD Spasm of cervical paraspinous muscle 09/15/[address] [phone] Morgan Curran MD Nurse Triage 09/15/2024 Refill [facility] [address] [place], [place] [phone] Ashlee Meza MD Spasm of cervical paraspinous muscle 09/15/2024 Refill [facility] [address] [place] [address] Morgan Curran MD from Last 3 Months Immunizations Name Administration [...] Sign Reading Time Taken Comments Blood Pressure 142/103 11/20/2024 2:11 PM EDT Pulse 100 11/20/2024 2:11 PM EDT Temperature 36.6 ??C (97.9 ??F) 11/20/2024 2:11 PM ED T Respiratory Rate 20 11/20/2024 2:11 PM EDT Oxygen Saturation 99% 11/20/2024 2:11 PM EDT Inhaled Oxygen Concentration - - Weight 68.9 kg (152 lb) 11/20/2024 2:11 PM EDT Height 153 cm (5' 0.24 ) 11/20/2024 2:11 PM EDT Body Mass Index 29.45 11/20/2024 2:11 PM EDT Plan of Treatment Upcoming Encounters Date Type Department Care Team (Late st Contact Info) Description 12/23/2024 11:30 AM EDT Telemedicine [facility] [address] [place], [place] [phone] Morgan Curran MD [address] [place] [address] Health Maintenance Due Date Last Done Comments CT Colonography 1970 FIT DNA/Cologuard 1970 FIT 1970 FOBT 1970 Sigmoidoscopy 1970 Hepatitis B Vaccines (1 of 3 - 19+ 3-dose series) 1988 COVID-19 Vaccine ( - season) 2024 03/15/2021, 02/21/2021, 01/12/2021 Influenza Vaccine (#1) 2024 , 07/01/2022, 05/05/2020, Additional history exists SDOH Screening 09/09/2024 09/09/2023 Alcohol/Substance Use Screening 05/25/2025 05/25/2024 Depression Screening 05/25/2025 05/25/2024, 05/25/20 24 Colonoscopy 09/20/2025 09/20/2020 Colorectal Cancer Screening 09/20/2025 Diabetes: Hemoglobin A1C 11/20/2025 025, 08/13/2024, 09/13/2022, Additional history exists Tobacco Screening 11/20/2025 11/20/2024 Mammogram 01/20/2026 01/21/2024, 2 09/2022, 05/07/2020, Additional history exists Pap Smear 03/17/2027 03/17/2024 DTaP/Tdap/Td Vaccines (2 - Td or Tdap) 01/14/2028 01/13/2018 Cervical Cancer Screening 03/17/2029 HPV/Cotest 03/17/2029 03/17/2024 Lipid Panel 08/13/2029 08/13/2024, 0607/2023, 12/25/2022, Additional history exists RSV Patients and Patients Aged 60 years or older (1 - 1-dose 75+ series) 2044 Hepatitis A Vaccines Completed 01/13/2018, 01/19/20 10 HIV Screening Completed 10/03/2022, 0803/2022, 11/09/2021, Additional history exists Hepatitis C Screening [...] Name Priority Date/Time Associated Diagnosis Comments POCT GLYCATED HEMOGLOBIN, TOTAL Routine 11/20/2024 3:31 PM EDT Deficiency of uzhypys-1-wecmuavpo dehydrogenase POCT GLUCOSE Routine 11/20/2024 3:31 PM EDT Deficiency of zyxdpes-6-btbkwmcdw dehydrogenase US ABDOMEN LIMITED Routine 09/24/2024 12 :38 [...] Routine 09/16/2024 2:34 PM EST Influenza A LIPID PANEL, STANDARD Routine 08/13/2024 8:06 AM EST Overweight THINPREP [...] Relevant to Health Maintenance Results * POCT HGB A1C (11/20/2024 3:31 PM EDT) Hemoglobin A1C 5.9 4.0 - 6.0 % QC Media Lot # [id number] Lot# Expiration Date ,639 Blood 11/20/2024 3:31 PM EDT us Ebenezer Acuña MD POINT OF CARE TEST ENTER/ED IT ORDERABLES Final Result * POCT Glucose (11/20/2024 3:31 PM EDT) Glucose Blood, POC 146 60 - 200 mg/dL QC Media Lot # [id number] Comment:random Lot# Expiration Date [id number] Blood Capillary blood specimen / Unknown 11/20/2024 3:31 PM EDT Ebenezer Acuña MD POINT OF CARE TEST ENTER/ED IT ORDERABLES Final Result * US Abdomen Limited (09/24/2024 12:38 AM EST) Anatomical Region Laterality Modality Abdomen Ultrasound 09/24/2024 12:3 8 AM EST Narrative 09/24/2024 12:39 AM EST ? [facility] ?[address] ?[place] [address] ? Ultrasound Report ? Signed ? Patient: Marshall,Abilio ?MR#: [id number] ?? 73 ? : 1970 ?Acct:[id number] ? Age/Sex: 53 / F ?ADM Date: 02/26/25 ? Loc: HO.ED ? Attending Dr: ? Ordering Physician: Jocelyne Schroeder MD ?? Date of Service: 09/23/24 ?? Procedure(s): US abdomen limited ?? Accession Number(s): [id number] ? cc: Morgan Curran MD; Jocelyne Schroeder MD ? CLINICAL HISTORY: RUQ pain ? US abdomen limited ? Comparison: US/AR/SR - US ABDOMEN COMPLETE - 09/18/23 08:55 [...] DD/ 0038 ? TD/TT: 09/24/24 0038 ? [facility] Laboratory Supervisor: ? Procedure Note Donkaren, Image - 09/24/2024 [place] [address] Ultrasound Report Signed Patient: Regina Olivares#: [id number] 73 : 1970Acct:[id number] Age/Sex: 53 / FADM Date: 09/23/24 Loc: HO.ED Attending Dr: Ordering Physician: Jocelyne Schroeder MD Date of Service: 09/23/24 Procedure(s): US abdomen limited Accession Number(s): [id number] cc: Morgan Curran MD; Jocelyne Schroeder MD CLINICAL HISTORY: RUQ pain US abdomen limited Comparison: US/AR/SR - US ABDOMEN COMPLETE - 09/18/23 08:55 [...] MD in OV> 09/24/2438 DD/ TD/TT: 09/24/2437 [facility] Laboratory Supervisor: us [facility] External Provider IMG US PROCEDURES Edited Result - Final * Urinalysis, Complete, with Reflex to Culture (09/23/2024 5:09 PM EST) Color Urine Yellow [facility] Appearance Urine Clear [facility] PH 6.0 5.0 - 9.0 [facility] Glucose Urine UA Negative Negative mg/dL [facility] Urine Blood Negative Negative [facility] Specific [place] - Urine <=1.005 1.005 - 1.025 [facility] Urine Protein Negative Neg-Trace mg/dL [facility] Urine Ketones Negative Negative mg/dL [facility] Nitrite Urine Negative Negative [facility] Leukocyte Esterase Urine Negative Negative [facility] RBC Urine 0-2 0 - 2 /HPF [facility] Urine WBC 0-5 0 - 5 /HPF [facility] Urine Squamous Epithelial Cell 0-2 0 - 2 /HPF [facility] Urine Bacteria None Seen None Seen [facility] Hyaline Casts, Urine 0-2 0 - 2 /LPF [facility] 09/23/2024 5:09 PM EST 09/23/2024 5:12 PM EST Narrative [facility] - 09/23/2024 5:35 PM EST [id number], Clean Catch us Generic External Data Provider LAB URINE ORDERAB LES Final Result [facility] [address] [place] [phone] * (ABNORMAL) CBC auto differential (09/23/2024 5:09 PM EST) White Blood Count 5.5 4.8 - 10.8 X10*3/uL [facility] Red Blood Count 4.17(L) 4.20 - 5.50 X10*6/uL [facility] Hemoglobin 13.1 12.0 - 16.0 g/dl [facility] Hematocrit 37.9 37.0 - 47.0 % [facility] Mean Corpuscular Volume 90.9 80.0 - 98.0 fL [facility] Mean Corpuscular Hemoglobin 31.4 27.0 - 33.0 pg [facility] Mean Corpuscular HGB Conc 34.6 31.0 - 35.0 g/dl [facility] Red Cell Distribution Width 12.7 11.0 - 16.0 % [facility] Platelet Count 276 160 - 400 X10*3/uL [facility] Mean Platelet Volume 9.9 9.4 - 12.3 fL [facility] Neutrophils Percent Auto 50.5 45 - 73 % [facility] Imm Gran Pct Auto 0.5(H) 0.0 - 0.4 % [facility] Lymphocytes Percent Auto 40.2(H) 20 - 40 % [facility] Monocytes Percent Auto 5.8 2 - 11 % [facility] Eosinophils Percent Auto 2.5 0 - 4 % [facility] Basophils Percent Auto 0.5 0 - 2 % [facility] NRBC Pct Auto 0.0 0.0 - 0.2 /100WBC [facility] Neutrophils Absolute Auto 2.8 2.0 - 8.3 x10*3/uL [facility] Imm Gran Abs Auto 0.03 0.00 - 0.03 X10*3/uL [facility] Lymphocytes Absolute Auto 2.2 1.2 - 4.9 X10*3/uL [facility] Monocytes Absolute Auto 0.3 0.1 - 1.2 X10*3/uL [facility] Eosinophils Absolute Auto 0.1 0.0 - 0.4 X10*3/uL [facility] Basophils Absolute Auto 0.0 0.0 - 0.2 X10*3/uL [facility] NRBC Abs Auto 0.000 0.0 - 0.012 X10*3/uL [facility] 09/23/2024 5:09 PM EST 09/23/2024 5:12 PM EST us Generic External Data Provider LAB BLOOD ORDERAB LES Final Result Performing Organization Address City/[facility]/ZIP Co de Phone Number [facility] [address] [place] [phone] * Lipase (09/23/2024 5:09 PM EST) Lipase 41 8 - 78 U/L [facility] 09/23/2024 5:09 PM EST 09/23/2024 5:12 PM EST Generic External Data Provider LAB BLOOD ORDERAB LES Final Result Performing Organization Address [facility]/ZIP Co de Phone Number [facility] [address] [place] [phone] * (ABNORMAL) Comprehensive Metabolic Panel (09/23/2024 5:09 PM EST) Sodium 140 135 - 145 mmol/L [facility] Potassium 3.6 3.3 - 5.1 mmol/L [facility] Chloride 109(H) 96 - 108 mmol/L [facility] Carbon Dioxide 23 22 - 29 mmol/L [facility] Anion Gap 12 12 - 20 [facility] Urea Nitrogen (BUN) 12 9 - 16 mg/dL [facility] Creatinine, Serum 0.86 0.5 - 1.4 mg/dL [facility] Creatinine Clr Calc Pharmacy 64.1 [facility] Comment:Provided height and weight: 152.4 cm,67.585 kg.eGFR (calculated from the MDRD study equation) and eCrCl(calculated from the Cockcroft-Gault equation) are based ondifferent parameters and may not yield comparable results.If eCrCl result is absurd, please check patient'sheight/weight. Estimated Glomerular Filt Rate >60 [facility] Comment:Chronic Kidney Disea se: Estimated GFR < 60 mL/min/1.45k6Gnbcno Kidney Disease: Estimated GFR < 15 mL/min/1.73m2 Glucose 136(H) 60 - 115 mg/dL [facility] Calcium 9.2 8.4 - 10.2 mg/dL [facility] Bilirubin, Total 0.4 0.0 - 1.0 mg/dL [facility] Aspartate Amino Transferase 29 5 - 31 U/L [facility] Alanine Aminotransferase 47(H) 0 - 31 U/L [facility] Total Protein 7.8 6.5 - 8.0 g/dL [facility] Albumin Level 4.2 3.5 - 5.0 g/dL [facility] Alkaline Phosphatase 85 39 - 117 U/L [facility] 09/23/2024 5:09 PM EST 09/23/2024 5:12 PM EST Generic External Data Provider LAB BLOOD ORDERAB LES Final Result [facility] [address] [place] [phone] * POCT Rapid Covid-19 BinaxNOW (09/16/2024 2:35 PM EST) Pathologist [facility] Rapid COVID Ag Negative QC Media Lot # [id number] Lot# Expiration Date Swab 09/16/2024 2:35 PM EST Adriana Brock MD POINT OF CARE TEST ENTER/EDIT OR DERABLES Final Result * POCT Rapid Influenza B OSOM (09/16/2024 2:35 PM EST) [facility] Rapid Influenza B Ag Negative Negative, Indeterminate QC Media Lot # [id number] Lot# Expiration Date ,025 Swab 09/16/2024 2:35 PM EST Adriana Brock MD POINT OF CARE TEST ENTER/EDIT OR DERABLES Final Result * (ABNORMAL) POCT Rapid Influenza A OSOM (09/16/2024 2:34 PM EST) Rapid Influenza A Ag Positive( A) Negative, Indeterminate QC Media Lot # [id number] Lot# Expiration Date ,025 Swab Nasopharyngeal structure / Unknown 09/16/2024 2:34 PM EST Adriana Brock MD POINT OF CARE TEST ENTER/EDIT OR DERABLES Final Result * (ABNORMAL) Lipid Panel, Standard (08/13/2024 8:06 AM EST) Pathologist [facility] Triglycerides 109 <150 mg/dL [facility] Comment:Desirable Triglyceri de: less than 150 mg/dLBorderline High Triglyceride 150-199 mg/dLHigh Triglyceride: 200-499 mg/dLVery High Triglyceride: greater than or equal to 5OO mg/dL Cholesterol 193 <200 mg/dL [facility] Comment:Desirable Cholestero l: less than 200 mg/dLBorderline High Cholesterol: 200-239 mg/dLHigh Cholesterol: greater than 239 mg/dL LDL Cholesterol Calculated 123(H) <100 mg/dL [facility] Comment:Desirable LDL: less than 100 mg/dLNear Optimal/Above Optimal LDL: 110- 129 mg/dLBorderline High LDL: 130-159 mg/dLHigh LDL: 160-189 mg/dLVery High LDL: greater than or equal to 190 mg/dL HDL Cholesterol 49 >40 mg/dL [facility] Comment:Desirable HDL: great er than 40 mg/dL Note: This HDL assay may give artificially low results in patients with liver disease. Blood Venous blood specimen / Unknown 08/13/2024 8:06 AM EST 08/13/2024 8:06 AM EST Morgan Huffman MD LAB BLOOD ORDERABL ES Final Result [facility] [address] [place] [phone] * ThinPrep Imaging Pap and HPV mRNA E6/E7 (03/17/2024 10:00 AM EDT) HPV nRNA E6/E7 Not Detected Not Detected [facility] Comment:Methodology: Transcr iption-Mediated AmplificationThis assay detects E6/E7 viral messenger RNA (mRNA) from 14high-risk HPV types (16,18,31,33,35,39,45,51,52,56,58,59,66,68).Cervical sources are required for HPV testing.If a vaginal source from a patient who has had atotal hysterectomy with removal of cervix wassubmitted, please contact the testing laboratoryfor alternative testing options.For additional information, please refer tohttp://education.[employer]/faq/QJW661c2(This link if provided for information/educational purposes only.)THIS TEST WAS PERFORMED AT:[facility] [address] [phone] ALBERTS MD SOURCE: SEE NOTE [facility] Comment:None given Report Status: [facility] Clinical Information: SEE NOTE [facility] Comment:None given LMP: SEE NOTE [facility] Comment:NONE GIVEN Prev. PAP: SEE NOTE [facility] Comment:NONE GIVEN Prev. BX: SEE NOTE [facility] Comment:NONE GIVEN Statement Of Adequacy: SEE NOTE [facility] Comment:[employer] General Categorization: [facility] Interpretation/Result: SEE NOTE [facility] Comment:Cytology Results: Ne gative for intraepitheliallesion or malignancy.Atrophic pattern; predominantly parabasal cells Cytology Comment SEE NOTE [facility] Comment:This Pap test has be en evaluated with computerassisted technology. Logistics Project Manager: SEE NOTE [facility] Comment:DMM, CT(ASCP)CT scre ening location: [address] [address] Review Logistics Project Manager: [facility] Pathologist [facility] PAP Infection [facility] See Note SEE NOTE [facility] Comment:EXPLANATORY NOTE:The Pap is a [...] AM EDT 03/17/2024 2:30 PM EDT Narrative [facility] - 03/20/2024 2:55 PM EDT SEE SCANNED RESULTS IN EMR us Ashlee Meza MD LAB PATHOLOGY ORDERABLES Erika rcih Result [facility] [address] [place] [phone] * BI Mammogram Screening Tomosynthesis Bilateral (01/21/2024 11:36 AM EDT) Anatomical Region Laterality Modality Breast Bilateral Mammography 01/21/2024 11:3 6 AM EDT Narrative 02/19/2024 11:23 PM EDT ? [facility] ? [address] ?[place] [address] ? Mammography Report ? Signed ? Patient: Marshall,Abilio ?MR#: [id number] ?? 73 ? : 1970 ?Acct:[id number] ? Age/Sex: 53 / F ?ADM Date: 06/25/24 ? Loc: HO.MAMMO ? Attending : Ashlee Meza MD ? Ordering Physician: Ashlee Meza MD ?Results: 2Beni ?? gn Findings ? Date of Service: 01/21/24 ?Follow Up: 1 Year From Orig ?? inal Mammogram ? Procedure(s): MM tomosynthesis screening BI ?? Accession Number(s): [id number] ? cc: Ashlee Meza MD ? EXAMINATION: ?? MM SCREENING DIGITAL BREAST TOMOSYNTHESIS, BILATERAL ? CLINICAL INFORMATION: ? Screening. Asymptomatic. ? The patient is status post bilateral breast reduction. ? COMPARISON: ?? Mammography: This study is compared with prior exams dating back to ?? 2018. ? TECHNIQUE: ?? Digital breast tomosynthesis is [...] MD in OV> ? 02/19/242318 ? DD/ 35 ? TD/TT: ? Geophysical Laboratory Supervisor: ? Procedure Note [place], Image - 02/19/2024 [facility] [address] [place], [place] [address] Mammography Report Signed Patient: Abilio OlivaresMR#: [id number] 73 : 1970Acct:[id number] Age/Sex: 53 / FADM Date: 01/21/24 Loc: HO.MAMMO Attending Dr: Ashlee Meza MD Ordering Physician: Ashlee Meza MDResults: 2Beni gn Findings Date of Service: 01/21/24Follow Up: 1 Year From Orig ina Mammogram Procedure(s): MM tomosynthesis screening BI Accession Number(s): [id number] cc: Ashlee Meza MD EXAMINATION: MM SCREENING [...] by Jennifer Sargent MD in OV> 02/19/24 1459 DD/ 1136 TD/TT: Geophysical Laboratory Supervisor: us Ashlee Meza MD IMG BI PROCEDURES Edited Resu lt - Final * Hepatitis C Ab (10/03/2022 6:48 AM EST) Hepatitis C Antibody Nonreactive Nonreactive [facility] Comment:Antibodies to HCV no t detected; does not exclude early acuteHCV infection. 10/03/2022 6:48 AM EST 10/03/2022 6:48 AM EST [facility] External Provider LAB BLO OD ORDERABLES Final Result Performing Organization Address [facility]/ZIP Co de Phone Number [facility] [address] [place] [address] [phone] * HIV Ab/Ag ([facility]) (10/03/2022 6:48 AM EST) HIV AB/AG Nonreactive Nonreactive [facility] Comment:HIV-1 p24 Ag and/or HIV-1/HIV-2 Ab not detected.A test result that is nonreactive does not exclude thepossibility of exposure to or infection with HIV-1 and/orHIV-2. Nonreactive results in this assay for individualswith prior exposure to HIV-1 and/or HIV-2 may be due toantigen and antibody levels that are below the limit ofdetection of this assay.[employer] HIV Ag/Ab Combo assay result andsupplemental assay results should be interpreted inconjunction with the patient's clinical presentation,history and other laboratory results. If the results areinconsistent with clinical evidence, additional testing issuggested to confirm the result. 10/03/2022 6:48 AM EST 10/03/2022 6:48 AM EST [facility] External Provider LAB BLO OD ORDERABLES Final Result Performing Organization Address [facility]/ZIP Co de Phone Number [facility] [address] [place] [address] [phone] * Hm Colonoscopy (09/20/2020) Colonoscopy Normal Normal Narrative Kaia Miranda - 09/20/2020 Recommended 5 year follow up Historical Provider HEALTH MAINTENANCE Edited Result - Final from Last 3 Months or Most Recently Relevant to Health Maintenance Insurance [facility] [employer] Member Subscriber Plan / Payer (Ef fective for All Dates) Name:Abilio Olivares Member ID:Not on file Relation to Subscriber:Not on file Name:ABILIOOG POE Subscriber ID:Not on file Date of :03/18/[birth year]23 (Home) Address: [address] [place], [place] [address] [place] [address] Payer ID:Not on file Group ID:Not on file Type:Not on file Address: [address] [place] [address] Care Teams Strip Presser Relationship Specialty Start Date End Date MaradiagaMorgan Perera MD [address] [place] [address] PCP - General Internal Medicine 08/18/24
--- OUTSIDE RECORDS SUMMARY | 2024-11-27 08:56 | XMS_ITS | Encounter Summary ---
Author Organization [employer] [facility] Address [address] [facility] 7t [place] [address] Care Team Providers Care Optometric Aide Name Role Phone Ashlee Meza MD Primary Care Provider [phone] [place] Curran MD Primary Care Prov ider Reason for Visit * Reason Comments Med Refill Encounter Details Date Type Department Care Team ([facility] Contact Info) Description 09/14/2022 Refill [facility] MEDICINE [address] [place], [place] [phone] Cornell Bucio FNP Anxiety (Primary Dx) Social [...] Upcoming Encounters Date Type Department Care Team ([facility] Contact Info) Description 12/23/2024 11:30 AM EDT Telemedicine [facility] CHC MED & PEDS [address] [place], [place] [phone] [place] Curran MD [address] [place] [address] documented as of this encounter Visit Diagnoses Diagnosis Anxiety- Primary Anxiety state, unspecified documented in this encounter Care Teams Optometric Aide Relationship Specialty Start Date End Date Ashlee Meza MD [address] [place] [address] PCP - General Family Medicine 03/28/20 08/17/24 [place] Curran MD [address] [place] [address] PCP - General Internal Medicine 08/18/24 documented as of this encounter
--- OUTSIDE RECORDS SUMMARY | 2024-11-27 08:56 | XMS_ITS | Encounter Summary ---
Author Organization [employer] [facility] Address [address] [facility] 7t [place] [address] Care Team Providers Care Security Operations Engineer Name Role Phone Ashlee Meza MD Primary Care Provider [phone] [place] Curran MD Primary Care Prov ider Reason for Visit * Reason Comments Med Refill Encounter Details Date Type Department Care Team ([facility] Contact Info) Description 08/05/2023 Refill [facility] MED & PEDS [address] [place] [address] Ashlee Meza MD [address] [place] [address] Social History Tobacco Use Types Packs/Day Years [...] Upcoming Encounters Date Type Department Care Team ([facility] st Contact Info) Description 12/23/2024 11:30 AM EDT Telemedicine [facility] MED & PEDS [address] [place] [address] [place] Curran MD [address] [place] [address] documented as of this encounter Visit Diagnoses Not on filedocumented in this encounter Additional Health Concerns Assessment Noted Time PHQ-9 Depression Total Score: 6 04/22/20 23 9:18 AM EDT documented as of this encounter Care Teams Security Operations Engineer Relationship Specialty Start Date End Date Ashlee Meza MD [address] [place] [address] PCP - General Family Medicine 03/28/20 08/17/24 [place] Curran MD [address] [place] [address] PCP - General Internal Medicine 08/18/24 documented as of this encounter
--- OUTSIDE RECORDS SUMMARY | 2024-11-27 08:56 | XMS_ITS | Encounter Summary ---
Author Organization [employer] [facility] Address [address] [facility] 7 [place] [address] Care Team Providers Care Process Plant Operator Name Role Phone [place] Curran MD Primary Care Prov ider Reason for Visit * Reason Onset Date Comments Nurse Triage 09/15/2024 Encounter Details Date Type Department Care Team (Late st Contact Info) Description 09/15/2024 Telephone [facility] [address] [place] [address] [place] Curran MD [address] [place] [address] Nurse Triage Social History Tobacco Use Types [...] Patient called back, requesting an appointment, given [facility] appt tomorrow. Future Appointments Date Time Provider Department Center 09/16/2024 2:20 PM [facility] DAY [facility] Insurance verified as active per [facility]. * Telephone Encounter - Farrah Valdivia RN [...] 12/23/2024 11:30 AM EDT Telemedicine [facility] MED & PEDS [address] [place] [address] [place] Curran MD [address] [place] [address] documented as of this encounter Visit Diagnoses Diagnosis Spasm of cervical paraspinous muscle Spasm of muscle Moderate persistent asthma, unspecified whether complicated documented in this encounter Additional Health Concerns Assessment Noted Time PHQ-9 Depression Total Score: 8 05/25/20 24 8:54 AM EDT documented as of this encounter Care Teams Process Plant Operator Relationship Specialty Start Date End Date [place] Curran MD [address] [place] [address] PCP - General Internal Medicine 08/18/24 documented as of this encounter
--- OUTSIDE RECORDS SUMMARY | 2024-11-27 08:56 | XMS_ITS | Encounter Summary ---
Author Organization [employer] Address [address] [facility] 7t [place] [address] Care Team Providers Care Car Parker Name Role Phone [place] Curran MD Primary Care Prov ider Reason for Visit * Reason Onset Date Comments Med Refill 09/15/2024 Encounter Details Date Type Department Care Team (Late st Contact Info) Description 09/15/2024 Refill [facility] CHC MED & PEDS [address] [place] [address] Ashlee Meza MD [address] [place] [address] Spasm of cervical paraspinous muscle Social History [...] Info) Description 12/23/2024 11:30 AM EDT Telemedicine [facility] MED & PEDS [address] [place] [address] [place] Curran MD [address] [place] [address] documented as of this encounter Visit Diagnoses Diagnosis Spasm of cervical paraspinous muscle Spasm of muscle documented in this encounter Additional Health Concerns Assessment Noted Time PHQ-9 Depression Total Score: 8 05/25/20 24 8:54 AM EDT documented as of this encounter Care Teams Car Parker Relationship Specialty Start Date End Date [place] Curran MD [address] [place] [address] PCP - General Internal Medicine 08/18/24 documented as of this encounter
--- OUTSIDE RECORDS SUMMARY | 2024-11-27 08:56 | XMS_ITS | Encounter Summary ---
Author Organization [employer] [facility] Address [address] [place] [address] 7t [place] [address] Care Team Providers Care Oil Burner Repairer Name Role Phone Ashlee Meza MD Primary Care Provider [phone] [place] Curran MD Primary Care Prov ider Reason for Visit * Reason Onset Date Comments triage 12/04/2022 Encounter Details Date Type Department Care Team ([facility] st Contact Info) Description 12/04/2022 Telephone [facility] CHC MED & PEDS [address] [place], [place] [phone] Ashlee Meza MD [address] [place], [place] [phone] triage Social History Tobacco Use Types Packs/Day [...] 12/04/2022 11:13 AM EDT Triage call with [employer] Superintendent Maintenance ID [id number] Pt reports for two days now, itchy [...] Upcoming Encounters Date Type Department Care Team ([facility] st Contact Info) Description 12/23/2024 11:30 AM EDT Telemedicine [facility] MED & PEDS [address] [place] [address] [place] Curran MD [address] [place] [address] documented as of this encounter Visit Diagnoses Not on filedocumented in this encounter Additional Health Concerns Assessment Noted Time PHQ-9 Depression Total Score: 5 10/31/19 23 9:17 AM EDT documented as of this encounter Care Teams Oil Burner Repairer Relationship Specialty Start Date End Date Ashlee Meza MD [address] [place] [address] PCP - General Family Medicine 03/28/20 08/17/24 [place] Curran MD [address] [place] [address] PCP - General Internal Medicine 08/18/24 documented as of this encounter
--- OUTSIDE RECORDS SUMMARY | 2024-11-27 08:57 | XMS_ITS | Encounter Summary ---
Author Organization [employer] [facility] Address [address] [facility] 7t [place] [address] Care Team Providers Care Infectious Diseases Physician Name Role Phone Ashlee Meza MD Primary Care Provider [phone] [place] Curran MD Primary Care Prov ider Reason for Visit * Reason Comments Med Refill Encounter Details Date Type Department Care Team ([facility] Contact Info) Description 05/21/2023 Refill [facility] MED & PEDS [address] [place] [address] Ashlee Meza MD [address] [place] [address] Social History Tobacco Use Types Packs/Day Years [...] Upcoming Encounters Date Type Department Care Team ([facility] st Contact Info) Description 12/23/2024 11:30 AM EDT Telemedicine [facility] MED & PEDS [address] [place] [address] [place] Curran MD [address] [place] [address] documented as of this encounter Visit Diagnoses Not on filedocumented in this encounter Additional Health Concerns Assessment Noted Time PHQ-9 Depression Total Score: 6 04/22/20 23 9:18 AM EDT documented as of this encounter Care Teams Infectious Diseases Physician Relationship Specialty Start Date End Date Ashlee Meza MD [address] [place] [address] PCP - General Family Medicine 03/28/20 08/17/24 [place] Curran MD [address] [place] [address] PCP - General Internal Medicine 08/18/24 documented as of this encounter
--- OUTSIDE RECORDS SUMMARY | 2024-11-27 08:57 | XMS_ITS | Encounter Summary ---
Author Organization [employer] [facility] Address [address] [facility] 7t [place] [address] Care Team Providers Care Conventional Underwriter Name Role Phone Ashlee Meza MD Primary Care Provider [phone] [place] Curran MD Primary Care Prov ider Reason for Visit * Reason Onset Date Comments Nurse Triage 08/12/2024 Encounter Details Date Type Department Care Team ([facility] st Contact Info) Description 08/12/2024 Telephone [facility] MEDICINE [address] [place] [address] Ashlee Meza MD [address] [place] [address] Nurse Triage Social History Tobacco Use Types [...] the past 12 months, has t he [employer], gas, oil or water [employer] threatened to shut off services in your [...] 08/12/2024 3:04 PM EST Triage call with [facility] [place] [id number]. Pt reports can speak Turkish. Triage continued in [place] at this time. Pt reports frequency , [...] become worse * Telephone Encounter - Guillermo Behzad - 08/12/2024 2:06 PM EST Symptoms: Urine Symptoms, Abdominal Pain - Female - Not Outcome: Schedule an urgent appointment (within 4 hours) or talk to a nurse or provider soon Reason: Started within the past 3 days The caller accepted this outcome. Contact pt [phone] documented in this encounter Plan of Treatment Upcoming Encounters Date Type Department Care Team (Late st Contact Info) Description 12/23/2024 11:30 AM EDT Telemedicine [facility] MED & PEDS [address] [place] [address] [place] Curran MD [address] [place] [address] documented as of this encounter Visit Diagnoses Not on filedocumented in this encounter Additional Health Concerns Assessment Noted Time PHQ-9 Depression Total Score: 8 05/25/20 24 8:54 AM EDT documented as of this encounter Care Teams Conventional Underwriter Relationship Specialty Start Date End Date Ashlee Meza MD [address] [place] [address] PCP - General Family Medicine 03/28/20 08/17/24 [place] Curran MD [address] [place] [address] PCP - General Internal Medicine 08/18/24 documented as of this encounter
--- OUTSIDE RECORDS SUMMARY | 2024-11-27 08:57 | XMS_ITS | Encounter Summary ---
Author Organization [employer] Address [address] [place] [address] Care Team Providers Care Sales Development Executive Name Role Phone [place] Curran MD Primary Care Prov ider Reason for Visit * Reason Onset Date Comments Nurse Triage 09/23/2024 Encounter Details Date Type Department Care Team ([facility] st Contact Info) Description 09/23/2024 Telephone [facility] CHC MED & PEDS [address] [place], [place] [phone] [place] Curran MD [address] [place] [address] Nurse Triage Social History Tobacco Use Types [...] the past 12 months, has t he [employer], gas, oil or water [employer] threatened to shut off services in your [...] 09/23/2024 2:04 PM EST Triage call with [facility] Physician Specialist [place] [id number] Alberto Pt reports abdominal pain, above umbilicus for last few days. Pt reports one episode of diarrhea yesterday but, nothing more. Neg for vomiting, fever or urinary symptoms. Pt reports this pain comes and goes but, is not ending. Pt is not . ASK apt in [facility] today at 320p. Pt agrees with [...] Info) Description 12/23/2024 11:30 AM EDT Telemedicine [facility] MED & PEDS [address] [place] [address] [place] Curran MD [address] [place] [address] documented as of this encounter Visit Diagnoses Not on filedocumented in this encounter Additional Health Concerns Assessment Noted Time PHQ-9 Depression Total Score: 8 05/25/20 24 8:54 AM EDT documented as of this encounter Care Teams Sales Development Executive Relationship Specialty Start Date End Date [place] Curran MD [address] [place] [address] PCP - General Internal Medicine 08/18/24 documented as of this encounter
--- OUTSIDE RECORDS SUMMARY | 2024-11-27 08:57 | XMS_ITS | Data Portability ---
Author Organization LIANNE - JOHN COLEMAN MD [facility], Main Office Address [address] [place] [phone] Assessment Encounter Date Assessment Date Assessment LastModified by Organization Details LastModified Time 08/27/2023 08/27/2023 telehealth. [facility]ximity. 19 min. [place] home in [place] cmartorell Not available 08/27/2023 10:30:23 09/19/2023 09/19/2023 VIDEO. telehealth. [facility]. 19 [place]. [place] Not available 09/19/2023 19:27:02 08/27/2024 08/27/2024 Telehealth. 17 min; [place]. [place] in [place]; [facility] cmartore[place] Not available 08/28/2024 10:31:52 11/25/2024 11/25/2024 Telehealth. 19 min; [place]; [facility] cmartorell Not available 11/25/2024 12:55:45 Plan of Treatment Reminders Order Date Submit Date Provider Last Modified By Organization Details Last Modified Time Details Appointments HBV FOLLOW UP 2024 12:20P Tj Vickers MD Not available Not available Not available Lab hepatitis B DNA, quantitat anastacia, serum 2024 025 [facility] (Lab), [address] [place] [address], [id number], 11/25/2024 13:02:49 CBC w/ diff 2024 025 [facility] (Lab), [address] [place] [address], [address], 11/25/2024 13:02:49 CT + NG DNA, PCR, unspecifi ed specimen 2024 025 [facility] (Lab), [address] [place] [address], [address], 11/25/2024 13:02:50 hepatitis C virus Ab, serum 2024 025 [facility] (Lab), [address] [place] [address], [address], 11/25/2024 13:02:50 RPR (rapid plasma reagin), serum [address] [place] [address] (Lab), [address] [place] [address], [address], 11/25/2024 13:02:49 HIV (1+2) Ab screen, serum 2024 025 [facility] (Lab), [address] [place] [address], [address], 11/25/2024 13:02:50 CMP, serum or plasma [address] [place] [address] (Lab), [address] [place] [address], [address], 11/25/2024 13:02:49 hepatitis B DNA, quantitat anastacia, serum [address] [place] [address] (Lab), [address] [place] [address], [address], 09/04/2024 08:48:24 CBC w/ diff [address] [place] [address] (Lab), [address] [place] [address], [address], 09/04/2024 08:48:25 ALT (alanine aminotran sferase), serum or plasma [address] [place] [address] (Lab), [address] [place] [address], [address], 09/04/2024 08:48:25 AST/SGOT (aspartat e aminotran sferase), serum or plasma [address] [place] [address] (Lab), [address] [place] [address], [address], 09/04/2024 08:48:25 CT + NG DNA, PCR, unspecifi ed specimen [address] (Lab), [address] [place] [address], [address], 09/04/2024 08:48:25 creatinin e w/ estimated GFR (eGFR), serum or plasma [address] [place] [address] (Lab), [address] [place] [address], [address], 09/04/2024 08:48:25 hepatitis C virus Ab, serum [address] (Lab), [address] [place] [address], 37[address], 09/04/2024 08:48:25 RPR (rapid plasma reagin), serum [address] [place] [address] (Lab), [address] [place] [address], [address], 09/04/2024 08:48:25 HIV (1+2) Ab screen, serum [address] [place] [address] (Lab), [address] [place] [address], [address], 09/04/2024 08:48:25 bilirubin , total, serum or plasma [address] [place] [address] (Lab), [address] [place] [address], 38[address], 09/04/2024 08:48:25 albumin, serum or plasma [address] (Lab), [address] [place] [address], [address], 09/04/2024 08:48:25 hepatitis B DNA, quantitat anastacia, serum [address] (Lab), [address] [place] [address], 9[address], 02/14/2024 09:27:22 CBC w/ diff [address] (Lab), [address] [place] [address], [address], 02/14/2024 09:27:23 ALT (alanine aminotran sferase), serum or plasma [address] (Lab), [address] [place] [address], 9[address], 02/14/2024 09:27:23 AST/SGOT (aspartat e aminotran sferase), serum or plasma [address] (Lab), [address] [place] [address], 0[address], 02/14/2024 09:27:23 CT + NG DNA, PCR, unspecifi ed specimen [address] (Lab), [address] [place] [address], [address], 02/14/2024 09:27:23 creatinin e w/ estimated GFR (eGFR), serum or plasma [address] (Lab), [address] [place] [address], 04[address], 02/14/2024 09:27:23 hepatitis C virus Ab, serum [address] (Lab), [address] [place], [address], 02/14/2024 09:27:23 RPR (rapid plasma reagin), serum [address] (Lab), [address] [place] [address], 8[address], 02/14/2024 09:27:23 HIV (1+2) Ab screen, serum [address] (Lab), [address] [place] [address], [address], 02/14/2024 09:27:24 bilirubin , total, serum or plasma [address] (Lab), [address] [place] [address], 047[address], 02/14/2024 09:27:24 albumin, serum or plasma [address] (Lab), [address] [place] [address], 229[address], 02/14/2024 09:27:24 hepatitis B DNA, quantitat anastacia, serum [address] (Lab), [address] [place] [address], 089[address], 09/04/2023 16:25:25 hepatitis D virus Ab panel, serum [address] (Lab), [address] [place] [address], [address], 09/04/2023 16:25:25 CBC w/ diff [address] (Lab), [address] [place] [address], [address], 09/04/2023 16:25:25 CT + NG DNA, PCR, unspecifi ed specimen [address] [place] [address] (Lab), [address] [place] [address], [address], 09/04/2023 16:25:26 creatinin e w/ estimated GFR (eGFR), serum or plasma [address] [place] [address] (Lab), [address] [place] [address], 39[address], 09/04/2023 16:25:26 hepatitis C virus Ab, serum [address] [place] [address] (Lab), [address] [place] [address], 704[address], 09/04/2023 16:25:26 RPR (rapid plasma reagin), serum [address] [place] [address] (Lab), [address] [place] [address], 99407, 09/04/2023 16:25:26 hepatitis B virus e Ag, QN, serum [address] [place] [address] (Lab), [address] [place] [address], 19734, 09/04/2023 16:25:26 hepatitis B virus e Ab, QN, serum [address] [place] [address] (Lab), [address] [place] [address], 7[address], 09/04/2023 16:25:26 hepatitis C liver status biomarker panel, serum [address] [place] [address] (Lab), [address] [place] [address], 134[address], 09/04/2023 16:25:27 BMP, serum or plasma [address] (Lab), [address] [place], [address], 09/04/2023 16:25:27 Referral None recorded. Procedures None recorded. Surgeries None recorded. Imaging US, abdomen, complete - HCC screen 2024 025 [facility] (Imaging), [address] [place], [address], 11/25/2024 13:25:00 US, abdomen - HBV. HCC SCreen; hx fatty liver; and GB adenomyom atosis per previous scan [address] (Imaging), [address] [place], [address], 09/11/2024 09:03:34 US, liver - dx HBV; fatty liver: HCC screen testing [address] (Imaging), [address] [place], [address], 09/12/2023 13:31:52 Medication Orders Loratadin e-D 10 mg-240 mg tablet,ex tended release 24 hr 2024 025 [facility]/Pharmacy #[id number], [phone] [place], [address], 11/25/2024 12:56:33 Patient TargetsNo targets recorded. Patient InstructionsNo instructions recorded. Reason for Referral None Reported. Results Created Date Observation Date Name Description Value Unit Range Abnormal Flag Note LastModifiedBy Organization Detail LastModifiedTime 09/20/19 24 09/18/2023 US, liver No observ ation record ed. [email or web address] [facility] (Imaging) [address] [place], [address], 09/23/2023 13:02:29 Result Notes None recorded. Problems Name Problem SNOMED Code Status Onset Date Resolution Date Notes Provider Name and Address Organization Details Recorded Time Steatotic liver disease 310719147 Active 2023 John Vickers MD [address] [place] [address], [phone], LIANNE VICKERS MD [facility] 10:35:09 Adenomyomatosi s of gallbladder 643945546 Active 2023 John Vickers MD [address] [place] [address], [phone], LIANNE VICKERS MD [facility] 10:24:47 Problem Notes None recorded. Procedures Surgical History None recorded. Imaging Results Imaging Date Name Status LastModified by Organiz [facility] Details LastModified Time 09/18/2023 US, liver completed [email or web address] [facility] (Imaging) [address] [place] [address], [address], 09/23/2023 13:02:29 Procedure Notes None recorded. Medical Equipment None Reported. Medications Name Sig Start Date Stop Date Status Note LastModified by Organization Details LastModified Time Loratadine -D 10 mg-240 mg tablet,ext ended release 24 hr Take 1 tablet every day by oral route for 30 days, for nasal congesti on. 025 active Not Available Not Available Not Avai lable Vitals None Recorded Social History None recorded. Functional Status None recorded. Mental Status None recorded. Family History Nothing Reported. Medical History No medical history recorded. Gynecological HistoryNo gynecological history recorded. Obstetrics History GPAL:G 0 P 0 0 0 0 Past Encounters Encounter ID Performer Location Encounter Start Date Encounter Closed Date Diagnosis/Indication Diagnosis SNOMED-CT Code Diagnosis ICD10 Code Diagnosis Note [id number] John Vickers MD Main Office [address] [place] [phone] 04/29/2023 12:56:09 04/30/2023 17:08:59 Chronic type B viral hepatitis 80676071 B18.1 HBV. monitor labs; no tx. no [...] vaccine recommende d Plan of care reviewed Steatotic liver disease 589373492 K76.0 diet and exercise reviewedav oid ETOH.incre ase water intake. [id number] John Vickers MD Main Office [address] [place] [address] 08/27/2023 10:39:49 08/27/2023 11:01:55 Chronic type B viral hepatitis 05100909 B18.1 HBV.monito r labs; no tx. no [...] of care reviewed Adult heal th examination 077596408 Z00.00 labs ordered [id number] John Vickers MD Main Office [address] [place] [phone] 09/19/2023 10:01:15 11/04/2023 13:55:01 Chronic type B viral hepatitis 70829241 B18.1 HBV.monito r labs; no tx. no [...] of care reviewed Adenomyoma tosis of gallbladder 131162760 K82.8 will see GI; referred by PCP. [id number] John Vickers MD Main Office [address] [place] [address] [place] [address] 02/07/2024 09:16:44 02/07/2024 10:45:21 Chronic type B viral hepatitis 47864277 B18.1 HBV.monito r labs; no tx. no [...] of care reviewed Adenomyoma tosis of gallbladder 302881046 K82.[address] scan reports done at [place] Steatotic liver disease K76.0 diet and exercise reviewedav oid ETOH.incre ase water intake.vit E suggested. [id number] John Vickers MD Main Office [address] [place] [phone] 08/28/2024 10:19:34 09/10/2024 15:08:10 Chronic type B viral hepatitis 54800676 B18.1 HBV.monito r labs; no tx. no [...] of care reviewed Adenomyoma tosis of gallbladder 042899846 K82.[address] scan reports done at [place]/s abd ordered Steatotic liver disease K76.0 diet and exercise reviewedav oid ETOH.incre ase water intake.[place]y [place]ht [place] reviewed[place]/ [place] [id number] John Vickers MD Main Office [address] [place] [phone] 6 11/25/2024 12:50:10 11/25/2024 13:23:26 Chronic type B viral hepatitis 95992872 B18.1 HBV.monito r labs; no tx. no need for tx so far based on current guidelines . pt prefers not to be on HBV tx.She is aware of PreP availabili ty. also aware than some of the HBV regimens can be used for PreP as well.avoid ETOHprevna r 20 recommende dcall with any new medslabs prior to next visitPlan of care reviewed Steatotic liver disease 393367533 K76.0 diet and exercise reviewedav oid ETOH.incre ase water intake.ivy ght loss reviewedu/ s abd HCC csreen Nasal congestion 1815339 0 R09.81 flonase qdloratadi ne D or loratadine for congestion /allergy respective ly Health Concerns Section Related Observation LastModified by Organization Detai ls LastModified Time None Recorded Concern Status LastModified by Organization Details LastModified Time None Recorded Advance Directives Directive None Recorded Payers Encounter Date Sequence Insurance Name Policy Number Policy Sanchez Covered Member ID Sanchez Member ID Guarantor Name 08/27/2023 1 [facility] [id number] Ashley Marshall [id number] Ashley Marshall 08/27/2023 1 [place] [facility] Ashley Marshall [id number] Ashley Marshall 09/19/2023 1 [facility] [id number] Ashley Marshall [id number] Sahley Marshall 09/19/2023 1 [place] [facility] Ashley Marshall [id number] Ashley Marshall 02/07/2024 1 [facility] [id number] Ashley Marshall [id number] Ashley Marshall 02/07/2024 1 [place] [facility] Ashley Marshall [id number] Ashley Marshall 08/27/2024 1 [facility] [id number] Ashley Marshall [id number] Ashley Marshall 08/27/2024 1 [place] [facility] Ashley Marshall [id number] Ashley Marshall 11/25/2024 1 [place] [facility] Ashley Marshall [id number] Ashley Olivares Notes Date Note Type Note Provider Name and Address Organization Details Recorded Time 08/27/2023 text/html f/u HBV04/2023 H BV labs [...] abdno new medical issues John Vickers MD [address] [place] [address], [phone], LIANNE VICKERS MD [facility] 08/27/2023 10:41:56 09/19/2023 text/html f/u HBV.not on t x by choice.08/28/2023 Fibrosure F0; HDV negshasad was told has adenomyomatosis of GB; was present on 2022.;she will see a surgeon on 10/01/23 for gallbladder evaluation. i do not have u/s report here.no other concerns. no abd pain. no n.v.d, abdominal discomfort after she eats. no weight loss. no fever. no nouehilg89/2023 HBV labs not done; ASLt/AST wnl; eGFR [...] abdno new medical issues John Vickers MD [address] [place] [address], [phone], LIANNE VICKERS MD [facility] 09/22/2023 21:33:42 02/07/2024 text/html f/u HBV.not on t x by choice.08/28/2023 Fibrosure F0; HDV neghad CT scan done in [place]. due to u/s 08/2023 that shows adenomyomatosis of GB; was present on 2022.;no other concerns. no abd pain. no n.v.d, abdominal discomfort after she eats. no weight loss. no fever. no oxepmgay48/2023 HBV labs not done; ASLt/AST wnl; eGFR [...] male sexual partner John Vickers MD [address] [place], [phone], LIANNE VICKERS MD [facility] 02/07/2024 14:52:16 08/27/2024 text/html f/u HBV.not on t x by choice.07/2024 HBV LF=144; ALT/AST wnl; eGFE>60; negative HIV and negative syphillis. neg GC/chlamydia08/28/2023 Fibrosure F0; HDV neghad u/s and CT scan done in [place]. due to u/s 08/2023 that shows adenomyomatosis of GB; was present on 2022.;no other concerns. no abd pain. no n.v.d, abdominal discomfort after she eats. no weight loss. no fever. no jaundicemed list reviewedno new meds nor OTCdenies ETOH use. denies drug useno new medical issueshas one male partner; denies sexual activityno STI sxshe reports household is vaccinated John Vickers MD [address] [place], [address], LIANNE VICKERS MD [facility] 08/28/2024 10:34:13 11/25/2024 text/html f/u HBV.not on t x by choice.no other concerns. no abd pain. no n.v.d, abdominal discomfort after she eats. no weight loss. no fever. no jaundicemed list reviewedno new meds nor OTCdenies ETOH use. denies drug useno new medical issueshas one male partner; denies sexual activityno STI sxshe reports household is vaccinatedhad shingles vaccinenasal congestion. no fever. no discharge. using flonase. rhinitis. 08/2024 HIV neg; HCV neg; ALT/AST wnl; eGFR>6007/2024 HBV LQ=876; ALT/AST wnl; eGFE>60; negative HIV and negative syphillis. neg GC/chlamydia08/28/2023 Fibrosure F0; HDV neghad u/s and CT scan done in [place]. due to u/s 08/2023 that shows adenomyomatosis of GB; was present on 2022.; John Vickers MD [address] [place] [address], [phone], LIANNE - JOHN VICKERS MD [facility] 11/25/2024 13:02:12 OBGyn Episode No OBEpisode recorded.
--- OUTSIDE RECORDS SUMMARY | 2024-11-27 08:57 | XMS_ITS | Encounter Summary ---
Author Organization [employer] [facility] Address [address] 7 [place] [address] Care Team Providers Care Technical Maintenance Specialist Name Role Phone Morgan Curran MD Primary Care Prov ider Reason for Visit * Reason Onset Date Comments Nurse Triage 11/20/2024 Encounter Details Date Type Department Care Team (Late st Contact Info) Description 11/20/2024 Telephone [facility] [address] [place] [address] Morgan Curran MD [address] [place] [address] Nurse Triage Social History Tobacco Use Types [...] Telephone Encounter - Yuli Carcamo RN - 11/20/2024 9:34 AM EDT Triage call with [facility] F[facility] [place] [id number] Pt reports a buzzing sound in left ear started 2 days ago. Pt also has sx of sneezing, eyes irritated, dizziness. Neg for pain or loss of hearing. Sound is constant. This does interfere with normal activities. ASK apt in [facility] @ 240pm 11/20/24. Pt agrees with disposition and insurance is verified as active prior to booking. Protocol Used: Tinnitus (Adult) Protocol-Based Disposition: See in Office or Video Visit within 3 Days Positive Triage Question: * Symptoms only or mainly in 1 ear (unilateral tinnitus) * All higher-acuity triage questions were negative Care Advice Discussed: * Reassurance and Education - Tinnitus * Reassurance and Education - Hearing Pounding Sound or Soft Tinnitus * Avoid Loud Noise * Avoid Caffeine, Aspirin, and Alcohol * Use Background Noise to Decrease Tinnitus * Reasons To Call Back - Tinnitus is very bothersome; or tinnitus interferes with work, school, or other activities - Decreased hearing - Earache or dizziness - You become worse * Telephone Encounter - Eleonora Veliz - 11/20/2024 8:41 AM EDT Symptom: Ear Ringing or Buzzing (No Pain) Outcome: Schedule a same-day appointment or talk to a nurse or provider today Reason: Started within the past 3 days The caller accepted this outcome. documented in this encounter Plan of Treatment Upcoming Encounters Date Type Department Care Team ([facility] st Contact Info) Description 12/23/2024 11:30 AM EDT Telemedicine [facility] MED & PEDS [address] [place] [address] Morgan Curran MD [address] [place] [address] documented as of this encounter Visit Diagnoses Not on filedocumented in this encounter Additional Health Concerns Assessment Noted Time PHQ-9 Depression Total Score: 8 05/25/20 24 8:54 AM EDT documented as of this encounter Care Teams Technical Maintenance Specialist Relationship Specialty Start Date End Date Morgan Curran MD [address] [place] [address] PCP - General Internal Medicine 08/18/24 documented as of this encounter
[2024-11-27 09:30] LABS: Basophils Percent Auto 0.8 % (0-2); Eosinophils Absolute Auto 0.2 X10*3/uL (0.0-0.4); Eosinophils Percent Auto 4.2 % (0-4); Hematocrit 36.9 % (37.0-47.0); Hemoglobin 12.7 g/dl (12.0-16.0); Imm Gran Abs Auto 0.02 X10*3/uL (0.00-0.03); Imm Gran Pct Auto 0.4 % (0.0-0.4); Lymphocytes Absolute Auto 1.8 X10*3/uL (1.2-4.9); Lymphocytes Percent Auto 38.2 % (20-40); Mean Corpuscular HGB Conc 34.4 g/dl (31.0-35.0); Mean Corpuscular Hemoglobin 32.1 pg (27.0-33.0); Mean Corpuscular Volume 93.2 fL (80.0-98.0); Mean Platelet Volume 10.2 fL (9.4-12.3); Monocytes Absolute Auto 0.4 X10*3/uL (0.1-1.2); Monocytes Percent Auto 7.5 % (2-11); Neutrophils Absolute Auto 2.3 x10*3/uL (2.0-8.3); Neutrophils Percent Auto 48.9 % (45-73); Platelet Count 237 X10*3/uL (160-400); Red Blood Count 3.96 X10*6/uL (4.20-5.50); White Blood Count 4.8 X10*3/uL (4.8-10.8)
[2024-11-27 10:21] LABS: Alanine Aminotransferase 29 U/L (0-31); Albumin Level 4.1 g/dL (3.5-5.0); Alkaline Phosphatase 81 U/L (39-117); Anion Gap 13 (12-20); Aspartate Amino Transferase 28 U/L (5-31); Bilirubin Total 0.5 mg/dL (0.0-1.0); Blood Urea Nitrogen 12 mg/dL (9-16); Calcium 9.4 mg/dL (8.4-10.2); Carbon Dioxide 25 mmol/L (22-29); Chloride 109 mmol/L (96-108); Estimated Glomerular Filt Rate > 60; Glucose Random 106 mg/dL (60-115); Potassium 4.6 mmol/L (3.3-5.1); Sodium 142 mmol/L (135-145); Total Protein 7.2 g/dL (6.5-8.0)
[2024-11-27 10:36] LABS: HIV AB/AG Nonreactive (Nonreactive); HIV Num 1 0.06 S/CO (0.00-0.99); ~HepC Num1 0.15 S/CO (0.00-0.79); ~Hepatitis C Antibody Nonreactive (Nonreactive)
[2024-11-27 11:00] LABS: CT PCR NOT DETECTED (Not Detect.); NG PCR NOT DETECTED (Not Detect.)
[2024-11-27 11:25] LABS: Syphilis Screen Nonreactive (Nonreactive)
[2024-11-28 13:03] LABS: Hepatitis B Viral DNA Qn - cp 1.88 Log IU/mL (NOT DETECTED); Hepatitis B Viral DNA Qn-IU/mL 75 IU/mL (NOT DETECTED)
== END 2024-11-27 08:32 | disposition home or self-care (01) ==
LOC: HO.LAB 08:31
PROVIDERS: PCP Family Medicine; Visit Provider Internal Medicine Infectious Disease
DX: B18.1 Chronic viral hepatitis B without delta-agent (principal)
CPT/HCPCS: 36415; 80053; 85025; 86704; 86706; 86780; 86803; 87340; 87389; 87491; 87517; 87591

== ENCOUNTER → 2024-12-29 10:33 | Outpatient (BNV) | payer MEDICAID, SELFPAY | PROVIDERS: PCP Internal Medicine; Visit Provider Radiology Diagnostic Radiology | DX: H93.12 Tinnitus, left ear (principal); H91.92 Unspecified hearing loss, left ear | CPT/HCPCS: 70551 ==

== ENCOUNTER 2024-12-29 10:36 | Outpatient (REF) | payer MEDICAID, SELFPAY ==
--- NOTE | ~2024-12-29 | MR_ITS ---
EXAMINATION: MR BRAIN WITHOUT IV CONTRAST HISTORY: Unilateral tinnitus, left ear w/ decreased hearing TECHNIQUE: Sagittal T1, and axial FLAIR, gradient echo, and diffusion weighted MR images of the brain were obtained. In addition, high resolution axial T1 and T2 weighted MR images were obtained through the internal auditory canals. COMPARISON: Correlation is made with an unenhanced head CT dated 04/28/2019. FINDINGS: The brain parenchyma is unremarkable, demonstrating normal valentin/white differentiation. No foci of abnormal signal intensity are identified. The ventricular system is normal in size and configuration. There is no mass effect or midline shift. No intra or extra-axial fluid collections are identified. There are no foci of restricted diffusion. No nodularity is seen in the internal auditory canals. Normal vascular flow voids are noted in the basilar and carotid arteries. The visualized paranasal sinuses are clear. MR/MR head/brain wo con IMPRESSION: Unremarkable MRI of the brain without contrast. No abnormality is seen in the internal auditory canals on unenhanced MRI. If there is clinical concern for a lesion of the internal auditory canals, contrast-enhanced imaging could be performed. Electronically signed by: Moose Mata MD 12/29/2024 11:46 AM EDT
--- OUTSIDE RECORDS SUMMARY | 2024-12-29 12:15 | XMS_ITS | Encounter Summary ---
Author Organization [employer] [facility] Address [address] [place] [address] 7t [place] [address] Care Team Providers Care Frame Tender Name Role Phone Ashlee Meza MD Primary Care Provider [phone] Morgan Curran MD Primary Care Prov ider Reason for Visit * Reason Onset Date Comments triage 12/04/2022 Encounter Details Date Type Department Care Team ([facility] st Contact Info) Description 12/04/2022 Telephone [facility] MED & PEDS [address] [place], [place] [phone] Ashlee Meza MD [address] [place], [place] [phone] triage Social History Tobacco Use Types Packs/Day [...] 12/04/2022 11:13 AM EDT 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 [place] [id number] Pt reports for two days now, itchy [...] Upcoming Encounters Date Type Department Care Team ([facility] st Contact Info) Description 02/23/2025 2:30 PM EDT Telemedicine [facility] MED & PEDS [address] [place] [address] Morgan Curran MD [address] [place] [address] documented as of this encounter Visit Diagnoses Not on filedocumented in this encounter Additional Health Concerns Assessment Noted Time PHQ-9 Depression Total Score: 5 10/31/19 23 9:17 AM EDT documented as of this encounter Care Teams Frame Tender Relationship Specialty Start Date End Date Ashlee Meza MD [address] [place] [address] PCP - General Family Medicine 03/28/20 08/17/24 Morgan Curran MD [address] [place] [address] PCP - General Internal Medicine 08/18/24 documented as of this encounter
== END 2024-12-29 10:37 | disposition home or self-care (01) ==
LOC: HO.MRI 10:36
PROVIDERS: PCP Internal Medicine; Visit Provider Internal Medicine
DX: H93.19 Tinnitus, unspecified ear (principal)
CPT/HCPCS: 70551

== ENCOUNTER 2025-02-19 10:44 | Outpatient (REF) | payer MEDICAID, SELFPAY ==
--- OUTSIDE RECORDS SUMMARY | 2025-02-19 10:51 | XMS_ITS | Encounter Summary ---
Author Organization [employer] [facility] Address [address] [place] [address] [address] [place] [address] Care Team Providers Care Digital Research Analyst Name Role Phone Ashlee Meza MD Primary Care Provider [phone] Morgan Curran MD Primary Care Prov ider Reason for Visit * Reason Onset Date Comments triage 12/04/2022 Encounter Details Date Type Department Care Team ([facility] st Contact Info) Description 12/04/2022 Telephone [facility] MED & PEDS [address] [place], [place] [phone] Ashlee Meza MD [address] [place], [place] [phone] triage Social History Tobacco Use Types Packs/Day [...] 12/04/2022 11:13 AM EDT Triage call with [employer] [facility] [place] [id number] Pt reports for two days now, itchy [...] Upcoming Encounters Date Type Department Care Team ([facility] st Contact Info) Description 02/23/2025 2:30 PM EDT Telemedicine [facility] MED & PEDS [address] [place] [address] Morgan Curran MD [address] [place] [address] documented as of this encounter Visit Diagnoses Not on filedocumented in this encounter Additional Health Concerns Assessment Noted Time PHQ-9 Depression Total Score: 5 10/31/19 23 9:17 AM EDT documented as of this encounter Care Teams Digital Research Analyst Relationship Specialty Start Date End Date Ashlee Meza MD [address] [place] [address] PCP - General Family Medicine 03/28/20 08/17/24 Morgan Curran MD [address] [place] [address] PCP - General Internal Medicine 08/18/24 documented as of this encounter
--- OUTSIDE RECORDS SUMMARY | 2025-02-19 10:52 | XMS_ITS | Data Portability ---
Author Organization LIANNE - JOHN COLEMAN MD [facility], Main Office Address [address] [place] [phone] Assessment Encounter Date Assessment Date Assessment LastModified by Organization Details LastModified Time 09/19/2023 09/19/2023 VIDEO. telehealth. [facility]. 19 min. [place] [facility] [email or web address] Not available 09/19/2023 19:27:02 08/27/2024 08/27/2024 Telehealth. 17 min; [place]. [place] [facility] [place] [facility]; MD in office in [facility]; [facility] [email or web address] Not available 08/28/2024 10:31:52 11/25/2024 11/25/2024 Telehealth. 19 min; video. [place] [facility]; MD in office in [facility]; [facility] [email or web address] Not available 11/25/2024 12:55:45 01/25/2025 01/25/2025 Telehealth. 17; video. pt home [place] [facility]; MD in office in [facility]; [facility] [email or web address] Not available 01/25/2025 13:26:27 Plan of Treatment Reminders Order Date Submit Date Provider Last Modified By Organization Details Last Modified Time Details Appointments None recorded. Lab hepatitis B DNA, quantitativ e, serum [address] (Lab), [address] [place] [address], [address], 13:10:38 CBC w/ diff [address] (Lab), [address] [place], [address], 13:10:38 RPR (rapid plasma reagin), serum [address] (Lab), [address] [place] [address], [address], 5 13:10:38 CMP, serum or plasma [address] [place] [address] (Lab), [address] [place] [address], [address], 5 13:10:38 hepatitis B DNA, quantitativ e, serum [address] [place] [address] (Lab), [address] [place] [address], [address], 5 13:46:59 CBC w/ diff [address] [place] [address] (Lab), [address] [place] [address], [address], 5 13:46:59 CT + NG DNA, PCR, unspecified specimen [address] [place] [address] (Lab), [address] [place] [address], [address], 5 13:46:59 hepatitis C virus Ab, serum [address] [place] [address] (Lab), [address] [place] [address], [address], 5 13:46:59 RPR (rapid plasma reagin), serum [address] [place] [address] (Lab), [address] [place] [address], [address], 5 13:47:00 HIV (1+2) Ab screen, serum [address] [place] [address] (Lab), [address] [place] [address], [place], [address], 5 13:47:00 CMP, serum or plasma [address] [place], [place] [id number] [address] [place] [address] (Lab), [address] [place], [address], 5 13:47:00 hepatitis B DNA, quantitativ e, serum [address] [place] [address] (Lab), [address] [place], [address], 5 08:48:24 CBC w/ diff [address] [place] [address] (Lab), [address] [place] [address], [address], 5 08:48:25 ALT (alanine aminotransf erase), serum or plasma [address] [place] [address] (Lab), [address] [place] [address], [address], 5 08:48:25 AST/SGOT (aspartate aminotransf erase), serum or plasma [address] [place] [address] (Lab), [address] [place] [address], [address], 5 08:48:25 CT + NG DNA, PCR, unspecified specimen [address] [place] [address] (Lab), [address] [place] [address], [address], 5 08:48:25 creatinine w/ estimated GFR (eGFR), serum or plasma [address] [place] [address] (Lab), [address] [place] [address], [address], 5 08:48:25 hepatitis C virus Ab, serum [address] (Lab), [address] [place] [address], [address], 5 08:48:25 RPR (rapid plasma reagin), serum [address] (Lab), [address] [place] [address], [address], 5 08:48:25 HIV (1+2) Ab screen, serum [address] (Lab), [address] [place] [address], [address], 5 08:48:25 bilirubin, total, serum or plasma [address] (Lab), [address] [place] [address], [address], 5 08:48:25 albumin, serum or plasma [address] (Lab), [address] [place] [address], [address], 5 08:48:25 hepatitis B DNA, quantitativ e, serum [address] (Lab), [address] [place] [address], [address], 4 09:27:22 CBC w/ diff [address] (Lab), [address] [place] [address], [address], 4 09:27:23 ALT (alanine aminotransf erase), serum or plasma [address] (Lab), [address] [place] [address], [address], 4 09:27:23 AST/SGOT (aspartate aminotransf erase), serum or plasma [address] (Lab), [address] [place] [address], [address], 4 09:27:23 CT + NG DNA, PCR, unspecified specimen [address] (Lab), [address] [place] [address], [address], 4 09:27:23 creatinine w/ estimated GFR (eGFR), serum or plasma [address] [place] [address] (Lab), [address] [place] [address], [address], 4 09:27:23 hepatitis C virus Ab, serum [address] [place] [address] (Lab), [address] [place] [address], [address], 4 09:27:23 RPR (rapid plasma reagin), serum [address] [place] [address] (Lab), [address] [place] [address], [address], 4 09:27:23 HIV (1+2) Ab screen, serum [address] [place] [address] (Lab), [address] [place] [address], [address], 4 09:27:24 bilirubin, total, serum or plasma [address] [place] [address] (Lab), [address] [place] [address], [address], 4 09:27:24 albumin, serum or plasma [address] (Lab), [address] [place], [address], 4 09:27:24 Referral None recorded. Procedures None recorded. Surgeries None recorded. Imaging US, abdomen, complete - HCC screen 2024 025 [email or web address] [id number] [facility] (Imaging), [address] [place] [address], [address], 5 13:46:46 US, abdomen - HBV. HCC SCreen; hx fatty liver; and GB adenomyomat osis per previous scan [address] (Imaging), [address] [place] [address], [address], 5 09:03:34 Medication Orders Loratadine- D 10 mg-240 mg tablet,exte nded release 24 hr 2024 025 [facility]/Pharmacy #[id number], [phone] [place], [address], 5 12:56:33 Patient TargetsNo targets recorded. Patient InstructionsNo instructions recorded. Reason for Referral None Reported. Results Created Date Observation Date Name Description Value Unit Range Abnormal Flag Note LastModifiedBy Organization Detail LastModifiedTime 09/20/19 24 09/18/2023 US, liver No observ ation record ed. [email or web address] [facility] ([facility]) [address] [place] [address], [address], 09/23/2023 13:02:29 Result Notes None recorded. Problems Name Problem SNOMED Code Status Onset Date Resolution Date Notes Provider Name and Address Organization Details Recorded Time Steatotic liver disease 542658250 Active 2023 John Vickers MD [address] [place] [address], [phone], [place] LIANNE - JOHN VICKERS MD [facility] 4 10:35:09 Adenomyomatosi s of gallbladder 033371653 Active 2023 John Vickers MD [address] [place] [address], [phone] [place] [address] - JOHN VICKERS MD [facility] 10:24:47 Problem Notes None recorded. Medical Equipment [...] Note 571 John Vickers MD Main Office [address] [place] [address] 04/29/2023 12:56:09 04/30/2023 17:08:59 Chronic type B viral hepatitis 81571871 B18.1 HBV. monitor labs; no tx. no [...] Plan of care reviewed Steatotic liver disease 156956064 K76.0 diet and exercise reviewedav oid ETOH.incre ase water intake. 1993 John Vickers MD Main Office [address] [place] [address] 08/27/2023 10:39:49 08/27/2023 11:01:55 Chronic type B viral hepatitis 93920399 B18.1 HBV.monito r labs; no tx. no [...] PreP availabili tyPlan of care reviewed Adult [facility] th examination 645703010 Z00.00 labs ordered 06216 John Vickers MD Main Office [address] [place] [address] 09/19/2023 10:01:15 11/04/2023 13:55:01 Chronic type B viral hepatitis 83416814 B18.1 HBV.monito r labs; no tx. no [...] of care reviewed Adenomyoma tosis of gallbladder 080557329 K82.8 will see GI; referred by PCP. 64782 John Vickers MD Main Office [address] [place] [address] 02/07/2024 09:16:44 02/07/2024 10:45:21 Chronic type B viral hepatitis 62315357 B18.1 HBV.monito r labs; no tx. no [...] of care reviewed Adenomyoma tosis of gallbladder 609838279 K82.[address] [place] [facility] Steatotic liver disease K76.0 diet and exercise reviewedav oid ETOH.incre ase water intake.vit E suggested. 73235 John Vickers MD Main Office [address] [place] [address], [place] [address] 08/28/2024 10:19:34 09/10/2024 15:08:10 Chronic type B viral hepatitis 31234764 B18.1 HBV.monito r labs; no tx. no [...] of care reviewed Adenomyoma tosis of gallbladder 741435058 K82.[address] scan reports done at [place]/s abd ordered Steatotic liver disease K76.0 diet and exercise reviewedav oid ETOH.incre ase water intake.ivy ght loss reviewedu/ s abd 33679 John Vickers MD Main Office [address] [place] [address], [place] [address] 11/25/2024 12:50:10 11/25/2024 13:23:26 Chronic type B viral hepatitis 98334656 B18.1 HBV.monito r labs; no tx. no [...] visitPlan of care reviewed Steatotic liver disease K76.0 diet and exercise reviewedav oid ETOH.incre ase water intake.ivy ght loss reviewedu/ s abd HCC csreen Nasal congestion 9076309 0 R09.81 flonase qdloratadi ne D [place] lorat[place] for congestion /[place] [address] John Vickers MD Main Office [address] [place] [address], [place] [address] 01/25/2025 13:13:40 01/25/2025 13:44:43 Chronic type B viral hepatitis 89510574 B18.1 HBV.monito r labs; no tx. no need for tx so far based on current guidelines . pt prefers not to be on HBV tx.avoid ETOHcall with any new medsu/s abd 08/2025labs prior to next visitPlan of care reviewed Health Concerns Section Related Observation LastModified by Organization Detai ls LastModified Time None Recorded Concern Status LastModified by Organization Details LastModified Time None Recorded Advance Directives Directive None Recorded Payers Insurance Date Sequence Insurance Name Policy Number Policy Sanchez Covered Member ID Sanchez Member ID Guarantor Name 08/28/2024 1 [place] [employer] [facility] Ashley Olivares [id number] Ashley Marshall 11/20/[address] [facility] [id number] Ashleyabhi Olivares [id number] Ashley Olivares 08/28/2024 2 [place] [employer] [facility] Ashley Marshall [id number] Ashley Olivares 01/26/2025 1 [place] [facility] Ashley Olivares [id number] Ashley Marshall Notes Date Note Type Note Provider Name and Address Organization Details Recorded Time 09/19/2023 text/html ROS as noted in the HPI f/u HBV.not on tx by choice.08/28/2023 Fibrosure F0; HDV negshasad was told has adenomyomatosis of GB; was present on 2022.;she will see a surgeon on 10/01/23 for gallbladder evaluation. i do not have u/s report here.no other concerns. no abd pain. no n.v.d, abdominal discomfort after she eats. no weight loss. no fever. no vuovmjhy92/2023 HBV labs not done; ASLt/AST wnl; eGFR [...] new medical issues John Vickers MD [address] [place], [address], LIANNE VICKERS MD [facility] 09/22/2023 21:33:42 02/07/2024 text/html ROS as noted in the HPI f/u HBV.not on tx by choice.08/28/2023 Fibrosure F0; HDV neghad CT scan done in [place]. due to u/s 08/2023 that shows adenomyomatosis of GB; was present on 2022.;no other concerns. no abd pain. no n.v.d, abdominal discomfort after she eats. no weight loss. no fever. no ilgvpmit97/2023 HBV labs not done; ASLt/AST wnl; eGFR [...] male sexual partner John Vickers MD [address] [place], [address], LIANNE VICKERS MD [facility] 02/07/2024 14:52:16 08/27/2024 text/html ROS as noted in the HPI f/u HBV.not on tx by choice.07/2024 HBV DH=234; ALT/AST wnl; eGFE>60; negative HIV and negative syphillis. neg GC/chlamydia08/28/2023 Fibrosure F0; HDV neghad u/s and CT scan done in [place]. due to u/s 08/2023 that shows adenomyomatosis of GB; was present on 2022.;no other concerns. no abd pain. no n.v.d, abdominal discomfort after she eats. no weight loss. no fever. no jaundicemed list reviewedno new meds nor OTCdenies ETOH use. denies drug useno new medical issueshas one male partner; denies sexual activityno STI sxshe reports household is vaccinated John Vickers MD [address] [place], [address], LIANNE VICKERS MD [facility] 08/28/2024 10:34:13 11/25/2024 text/html ROS as noted in the HPI f/u HBV.not on tx by choice.no other concerns. no abd pain. [...] neg; HCV neg; ALT/AST wnl; eGFR>6007/2024 HBV AC=930; ALT/AST wnl; eGFE>60; negative HIV and negative syphillis. neg GC/chlamydia08/28/2023 Fibrosure F0; HDV neghad u/s and CT scan done in [place]. due to u/s 08/2023 that shows adenomyomatosis of GB; was present on 2022.; John Vickers MD [address] [place], [address], LIANNE VICKERS MD [facility] 11/25/2024 13:02:12 01/25/2025 text/html ROS as noted in the HPI f/u HBV.not on tx by choice.no other concerns. no abd pain. no n.v.d, abdominal discomfort after she eats. no weight loss. no fever. no jaundicemed list reviewedno new meds nor OTCdenies ETOH use.denies drug use08/2024 u/s unremarkable11/2024 HBV vL 75; HIV neg; HCV danielito neg;08/2024 HIV neg; HCV neg; ALT/AST wnl; eGFR>6007/2024 HBV OB=236; ALT/AST wnl; eGFE>60; negative HIV and negative syphillis. neg GC/chlamydia08/28/2023 Fibrosure F0; HDV neghad u/s and CT scan done in [place]. due to u/s 08/2023 that shows adenomyomatosis of GB; was present on 2022.; John Vickers MD [address] [place] [address], [address], LIANNE - JOHN VICKERS MD [facility] 01/25/2025 13:27:08 OBGyn Episode No OBEpisode recorded.
[2025-02-19 15:02] LABS: Free T4 (Free Thyroxine) 0.76 ng/dL (0.71-1.85)
== END 2025-02-19 10:45 | disposition home or self-care (01) ==
LOC: HO.CHCLDS 10:44
PROVIDERS: Visit Provider Internal Medicine
DX: E03.9 Hypothyroidism, unspecified (principal)
CPT/HCPCS: 36415; 84439; 84443

== ENCOUNTER 2025-03-24 10:17 | Outpatient (REF) | payer MEDICAID, SELFPAY ==
--- OUTSIDE RECORDS SUMMARY | 2025-03-24 11:13 | XMS_ITS | Encounter Summary ---
Author Organization [employer] Address [address] [facility] [address]t [place] [address] Care Team Providers Care Solar Energy Engineer Name Role Phone Ashlee Meza MD Primary Care Provider [phone] Morgan Curran MD Primary Care Prov ider Reason for Visit * Reason Comments Med Refill Encounter Details Date Type Department Care Team ([facility] st Contact Info) Description 03/12/2024 Refill [facility] MED & PEDS [address] [place] [address] Ashlee Meza MD [address] [place] [address] Social History Tobacco Use Types Packs/Day Years [...] documented as of this encounter Care Teams Solar Energy Engineer Relationship Specialty Start Date End Date Ashlee Meza MD [address] [place] [address] PCP - General Family Medicine 03/28/20 08/17/24 Morgan Curran MD [address] [place] [address] PCP - General Internal Medicine 08/18/24 documented as of this encounter
--- OUTSIDE RECORDS SUMMARY | 2025-03-24 11:13 | XMS_ITS | Encounter Summary ---
Author Organization [employer] Address [address] [place] [address] Care Team Providers Care Customer Support Executive Name Role Phone Morgan Curran MD Primary Care Prov ider Reason for Visit * Reason Onset Date Comments Nurse Triage 09/15/2024 Encounter Details Date Type Department Care Team (Late st Contact Info) Description 09/15/2024 Telephone [facility] [address] [place] [address] Morgan Curran MD [address] [place] [address] Nurse Triage Social History Tobacco Use Types [...] Patient called back, requesting an appointment, given [facility] appt tomorrow. Future Appointments Date Time Provider Department Center 09/16/2024 2:20 PM [facility] Insurance verified as active per Real Time Eligibility in [facility]. * Telephone Encounter - Farrah Valdivia [...] documented as of this encounter Care Teams Customer Support Executive Relationship Specialty Start Date End Date Morgan Curran MD [address] [place] [address] PCP - General Internal Medicine 08/18/24 documented as of this encounter
--- OUTSIDE RECORDS SUMMARY | 2025-03-24 11:13 | XMS_ITS | Encounter Summary ---
Author Organization [employer] Address [address] [facility] [address] [place] [address] Care Team Providers Care Operating Systems Programmer Name Role Phone Morgan Curran MD Primary Care Prov ider Reason for Visit * Reason Onset Date Comments Med Refill 09/15/2024 Encounter Details Date Type Department Care Team (Late st Contact Info) Description 09/15/2024 Refill [facility] MED & PEDS [address] [place] [address] Ashlee Meza MD [address] [place] [address] Spasm of cervical paraspinous muscle Social History [...] documented as of this encounter Care Teams Operating Systems Programmer Relationship Specialty Start Date End Date Morgan Curran MD [address] [place] [address] PCP - General Internal Medicine 08/18/24 documented as of this encounter
--- OUTSIDE RECORDS SUMMARY | 2025-03-24 11:13 | XMS_ITS | Encounter Summary ---
Author Organization [employer] Address [address] [place] [address] 7t [place] [address] Care Team Providers Care Distribution Supervisor Name Role Phone Ashlee Meza MD Primary Care Provider [phone] Morgan Curran MD Primary Care Prov ider Reason for Visit * Reason Onset Date Comments triage 12/04/2022 Encounter Details Date Type Department Care Team ([facility] st Contact Info) Description 12/04/2022 Telephone [facility] MED & PEDS [address] [place], [place] [phone] Ashlee Meza MD [address] [place], [place] [phone] triage Social History Tobacco Use Types Packs/Day [...] 12/04/2022 11:13 AM EDT Triage call with [employer] Technician [place] [id number] Pt reports for two days now, itchy [...] documented as of this encounter Care Teams Distribution Supervisor Relationship Specialty Start Date End Date Ashlee Meza MD [address] [place] [address] PCP - General Family Medicine 03/28/20 08/17/24 Morgan Curran MD [address] [place] [address] PCP - General Internal Medicine 08/18/24 documented as of this encounter
--- OUTSIDE RECORDS SUMMARY | 2025-03-24 11:13 | XMS_ITS | Encounter Summary ---
Author Organization [employer] Address [address] [facility] 7 [place] [address] Care Team Providers Care Warper Fixer Name Role Phone Morgan Curran MD Primary Care Prov ider Encounter Details Date Type Department Care Team ([facility] st Contact Info) Description 12/03/2024 Orders Only [facility] MED & PEDS [address] [place], [place] [phone] Ebenezer Acuña MD [address] [place] [address] Unilateral subjective nonpulsatile tinnitus without hearing loss, otoscopic finding, neurologic deficit, or head trauma (Primary Dx) Social History Tobacco Use Types [...] Procedure Name Priority Date/Time Associated Diagnosis Comments MR BRAIN WO CONTRAST Routine 12/29/2024 10:33 AM EDT documented in this encounter Results * MR Brain w/o Contrast (12/29/2024 10:33 AM EDT) Anatomical Region Laterality Modality Brain Magnetic Resonan ce 12/29/2024 10:3 3 AM EDT Narrative 12/29/2024 11:49 AM EDT [place] [address] Magnetic Resonance Report Signed Patient: Ashley Olivares MR#: [id number] 73 : 1970 Acct:[id number] Age/Sex: 54 / F ADM Date: 12/29/24 Loc: HO.MRI Attending Dr: Ebenezer Acuña MD Ordering Physician: Ebenezer Acuña MD Date of Service: 12/29/24 Procedure(s): MR head/brain wo con Accession Number(s): [id number] cc: Ebenezer Acuña MD; Morgan Curran MD EXAMINATION: MR BRAIN WITHOUT IV CONTRAST HISTORY: Unilateral tinnitus, left ear w/ decreased hearing TECHNIQUE: Sagittal T1, and axial FLAIR, gradient echo, and diffusion weighted MR images of the brain were obtained. In addition, high resolution axial T1 and T2 weighted MR images were obtained through the internal auditory canals. COMPARISON: Correlation is made with an unenhanced head CT dated 04/28/2019. FINDINGS: The brain parenchyma is unremarkable, demonstrating normal valentin/white differentiation. No foci of abnormal signal intensity are identified. The ventricular system is normal in size and configuration. There is no mass effect or midline shift. No intra or extra-axial fluid collections are identified. There are no foci of restricted diffusion. No nodularity is seen in the internal auditory canals. Normal vascular flow voids are noted in the basilar and carotid arteries. The visualized paranasal sinuses are clear. MR/MR head/brain wo con IMPRESSION: Unremarkable MRI of the brain without contrast. No abnormality is seen in the internal auditory canals on unenhanced MRI. If there is clinical concern for a lesion of the internal auditory canals, contrast-enhanced imaging could be performed. Electronically signed by: Moose Mata MD 12/29/2024 11:46 AM EDT Dictated By: Moose Mata MD Signed By: <Electronically signed by Moose Mata MD in [place]> 12/29/24 1146 DD/ 1033 TD/TT: 12/29/24 1104 Automotive Warranty Administrator: Procedure Note Donotuseinterpreter, Image - 12/29/[address] [address] Magnetic Resonance Report Signed Patient: Ashley OlivaresMR#: [id number] 73 : 1970Acct:[id number] Age/Sex: 54 / FADM Date: 12/29/24 Loc: HO.MRI Attending Dr: Ebenezer Acuña MD Ordering Physician: Ebenezer Acuña MD Date of Service: 12/29/24 Procedure(s): MR head/brain wo con Accession Number(s): [id number] cc: Ebenezer Acuña MD; Morgan Curran MD EXAMINATION: MR BRAIN WITHOUT IV CONTRAST HISTORY: Unilateral tinnitus, left ear w/ decreased hearing TECHNIQUE: Sagittal T1, and axial FLAIR, gradient echo, and diffusion weighted MR images of the brain were obtained. In addition, high resolution axial T1 and T2 weighted MR images were obtained through the internal auditory canals. COMPARISON: Correlation is made with an unenhanced head CT dated 04/28/2019. FINDINGS: The brain parenchyma is unremarkable, demonstrating normal valentin/white differentiation. No foci of abnormal signal intensity are identified. The ventricular system is normal in size and configuration. There is no mass effect or midline shift. No intra or extra-axial fluid collections are identified. There are no foci of restricted diffusion. No nodularity is seen in the internal auditory canals. Normal vascular flow voids are noted in the basilar and carotid arteries. The visualized paranasal sinuses are clear. MR/MR head/brain wo con IMPRESSION: Unremarkable MRI of the brain without contrast. No abnormality is seen in the internal auditory canals on unenhanced MRI. If there is clinical concern for a lesion of the internal auditory canals, contrast-enhanced imaging could be performed. Electronically signed by: Moose Mata MD 12/29/2024 11:46 AM EDT Dictated By: Moose Mata MD Signed By: <Electronically signed by Moose Mata MD in [place]> 12/29/24 1146 DD/ 1033 TD/TT: 12/29/24 1104 Automotive Warranty Administrator: us Ebenezer Acuña MD IM MRI PROCEDURES Final Re sult documented in this encounter Visit Diagnoses Diagnosis Unilateral subjective nonpulsatile tinnitus without hearing loss, otoscopic finding, neurologic deficit, or head trauma- Primary documented in this encounter Additional Health Concerns Assessment Noted Time PHQ-9 Depression Total Score: 8 05/25/20 24 8:54 AM EDT documented as of this encounter Care Teams Warper Fixer Relationship Specialty Start Date End Date Morgan Curran MD [address] [place] [address] PCP - General Internal Medicine 08/18/24 documented as of this encounter
--- OUTSIDE RECORDS SUMMARY | 2025-03-24 11:13 | XMS_ITS | Encounter Summary ---
Author Organization [employer] Address [address] [facility] 7t [place] [address] Care Team Providers Care Traveling Freight Agent Name Role Phone Morgan Curran MD Primary Care Prov ider Encounter Details Date Type Department Care Team (Late st Contact Info) Description 02/19/2025 Results Follow-Up [facility] MEDICINE [address] [place], [place] [phone] Sonya Isaacs, ANP 230 [place] [address] TSH W/Reflex to FT4 Social History Tobacco Use Types Packs/Day Years [...] got money to buy more: Never True 12/23/2024 Within the past 12 months,th e food [...] as of this encounter Miscellaneous Notes * Result Encounter Note - ERNESTO Dominguez - 02/19/2025 5:06 PM EDT Not urgent but will send new dose of levothyroxine to take daily. 88 mcg daily. * Result Encounter Note - ERNESTO Dominguez - 02/19/2025 4:05 PM EDT Hi - TSH above goal, please confirm w/ pt taking levothyroxine as rx'd, important to take 30 min atleast b/f other food or meds. documented in this encounter Plan of Treatment Not on file documented as of this encounter Visit Diagnoses Diagnosis Hypothyroidism, unspecified type- Primary documented in this encounter Additional Health Concerns Assessment Noted Time PHQ-9 Depression Total Score: 8 05/25/20 24 8:54 AM EDT documented as of this encounter Care Teams Traveling Freight Agent Relationship Specialty Start Date End Date Morgan Curran MD [address] [place] [phone] PCP - General Internal Medicine 08/18/24 documented as of this encounter
--- OUTSIDE RECORDS SUMMARY | 2025-03-24 11:13 | XMS_ITS | Encounter Summary ---
Author Organization [employer] Address [address] [facility] 7t [place] [address] Care Team Providers Care Management Specialist Name Role Phone Ashlee Meaz MD Primary Care Provider [phone] Morgan Curran MD Primary Care Prov ider Reason for Visit * Reason Comments Med Refill Encounter Details Date Type Department Care Team ([facility] Contact Info) Description 05/21/2023 Refill [facility] MED & PEDS [address] [place] [address] Ashlee Meza MD [address] [place] [address] Social History Tobacco Use Types Packs/Day Years [...] documented as of this encounter Care Teams Management Specialist Relationship Specialty Start Date End Date Ashlee Meza MD [address] [place] [phone] PCP - General Family Medicine 03/28/20 08/17/24 Morgan Curran MD [address] [place] [id number] PCP - General Internal Medicine 08/18/24 documented as of this encounter
--- OUTSIDE RECORDS SUMMARY | 2025-03-24 11:13 | XMS_ITS | Encounter Summary ---
Author Organization [employer] Address [address] [place] [address] [place] [address] Care Team Providers Care Stopper Setter Name Role Phone Ashlee Meza MD Primary Care Provider [phone] Morgan Curran MD Primary Care Prov ider Encounter Details Date Type Department Care Team (Late st Contact Info) Description 08/07/2022 Telephone [facility] MED & PEDS [address] [place], [place] [phone] Ashlee Meza MD 505 [place] [address] Social History Tobacco Use Types Packs/Day Years [...] on filedocumented in this encounter Care Teams Stopper Setter Relationship Specialty Start Date End Date Ashlee Meza MD [address] [place] [address] PCP - General Family Medicine 03/28/20 08/17/24 Morgan Curran MD [address] [place] [id number] PCP - General Internal Medicine 08/18/24 documented as of this encounter
--- OUTSIDE RECORDS SUMMARY | 2025-03-24 11:13 | XMS_ITS | Encounter Summary ---
Author Organization [employer] [facility] Address [address] [place] [address] [place] [address] Care Team Providers Care Exhibit Specialist Name Role Phone Morgan Curran MD Primary Care Prov ider Reason for Referral * Consultation (Routine) - Closed Specialty Diagnoses / Procedures Referred By Contyris schrader Referred To Contact Otolaryngology Diagnoses Unilateral subjective nonpulsatile tinnitus without hearing loss, otoscopic finding, neurologic deficit, or head trauma Ebenezer Acuña MD [address] [place] [address] Phone: tel: fax: [facility] [address] Phone: tel: fax: Referral ID Status Reason Start Date Expiration Date V isits Requested Visits Authorized [id number] Closed Specialty Services Required 12/29/2024 12/29/2025 1 1 Encounter Details Date Type Department Care Team (Late st Contact Info) Description 12/29/2024 Orders Only [facility] MED & PEDS [address] [place] [address] Ebenezer Acuña MD [address] [place] [address] Unilateral subjective nonpulsatile tinnitus without hearing loss, [...] as of this encounter Plan of Treatment Scheduled Referrals Name Type Priority Associated Diagnoses Orde r Schedule Referral to ENT Outpatient Referral Routine Unilateral subjective nonpulsatile tinnitus without hearing loss, otoscopic finding, neurologic deficit, or head trauma Expected: 12/29/2024 (Approximate), Expires: 12/29/2025 documented as of this encounter Visit Diagnoses Diagnosis Unilateral subjective nonpulsatile tinnitus without hearing loss, otoscopic finding, neurologic deficit, or head trauma- Primary documented in this encounter Additional Health Concerns Assessment Noted Time PHQ-9 Depression Total Score: 8 05/25/20 24 8:54 AM EDT documented as of this encounter Care Teams Exhibit Specialist Relationship Specialty Start Date End Date Morgan Curran MD [address] [place] [phone] PCP - General Internal Medicine 08/18/24 documented as of this encounter
--- OUTSIDE RECORDS SUMMARY | 2025-03-24 11:13 | XMS_ITS | Encounter Summary ---
Author Organization [employer] Address [address] [address] Care Team Providers Care Collection Manager Name Role Phone Morgan Curran MD Primary Care Prov ider Reason for Visit * Reason Onset Date Comments Change PCP 03/24/2025 Encounter Details Date Type Department Care Team ([facility] st Contact Info) Description 03/24/2025 Telephone [facility] CHC MED & PEDS [address] [place], [place] [phone] Morgan Curran MD 505 [place] [address] Change PCP Social History Tobacco Use Types [...] encounter Miscellaneous Notes * Telephone Encounter - Jhony Bee - 03/24/2025 9:54 AM EDT Pt requesting to change pcp would prefer an in person doctor. documented in this encounter Plan of Treatment Not on file documented as of this encounter Visit Diagnoses Not on filedocumented in this encounter Additional Health Concerns Assessment Noted Time PHQ-9 Depression Total Score: 8 05/25/20 24 8:54 AM EDT documented as of this encounter Care Teams Collection Manager Relationship Specialty Start Date End Date Morgan Curran MD [address] [place] [phone] PCP - General Internal Medicine 08/18/24 documented as of this encounter
--- OUTSIDE RECORDS SUMMARY | 2025-03-24 11:13 | XMS_ITS | Encounter Summary ---
Author Organization [employer] Address [address] [place] [address] Care Team Providers Care Salesperson Used Cars Name Role Phone Morgan Curran MD Primary Care Prov ider Reason for Visit * Reason Onset Date Comments Nurse Triage 09/23/2024 Encounter Details Date Type Department Care Team ([facility] st Contact Info) Description 09/23/2024 Telephone [facility] CHC MED & PEDS 505 [place], [place] [phone] Morgan Curran MD 505 [place] [address] Nurse Triage Social History Tobacco Use Types [...] the past 12 months, has t he [employer], gas, oil or water [employer] threatened to shut off services in your [...] call with [facility] Gas Inspector [place] [id number] Alberto Pt reports abdominal pain, above umbilicus for last few days. Pt reports one episode of diarrhea yesterday but, nothing more. Neg for vomiting, fever or urinary symptoms. Pt reports this pain comes and goes but, is not ending. Pt is not . ASK apt in [facility] today at 320p. Pt agrees with [...] documented as of this encounter Care Teams Salesperson Used Cars Relationship Specialty Start Date End Date Morgan Curran MD [address] [place] [phone] PCP - General Internal Medicine 08/18/24 documented as of this encounter
--- OUTSIDE RECORDS SUMMARY | 2025-03-24 11:13 | XMS_ITS | Encounter Summary ---
Author Organization [employer] Address [address] [facility] 7t [place] [address] Care Team Providers Care Business Intelligence Engineer Name Role Phone Ashlee Meza MD Primary Care Provider [phone] Morgan Curran MD Primary Care Prov ider Reason for Visit * Reason Onset Date Comments Nurse Triage 08/12/2024 Encounter Details Date Type Department Care Team (Late st Contact Info) Description 08/12/2024 Telephone [facility] MEDICINE [address] [place] [address] Ashlee Meza MD 505 [place] [address] Nurse Triage Social History Tobacco Use Types [...] the past 12 months, has t he [employer], gas, oil or water [employer] threatened to shut off services in your [...] 08/12/2024 3:04 PM EST Triage call with [facility] [place] [id number]. Pt reports can speak Kiswahili. Triage continued in bulgarian at this time. Pt reports frequency , [...] The caller accepted this outcome. Contact pt [phone] documented in this encounter Plan of Treatment Not on file documented as of this encounter Visit Diagnoses Not on filedocumented in this encounter Additional Health Concerns Assessment Noted Time PHQ-9 Depression Total Score: 8 05/25/20 24 8:54 AM EDT documented as of this encounter Care Teams Business Intelligence Engineer Relationship Specialty Start Date End Date Ashlee Meza MD [address] [place] [address] PCP - General Family Medicine 03/28/20 08/17/24 Morgan Curran MD 505 [place] [address] PCP - General Internal Medicine 08/18/24 documented as of this encounter
--- OUTSIDE RECORDS SUMMARY | 2025-03-24 11:13 | XMS_ITS | Encounter Summary ---
Author Organization [employer] Address 75 [facility] 7t [place] [address] Care Team Providers Care Cutting Machine Fixer Name Role Phone Morgan Curran MD Primary Care Prov ider Reason for Visit * Reason Comments Med Refill Encounter Details Date Type Department Care Team ([facility] st Contact Info) Description 02/25/2025 Refill [facility] CHC MED & PEDS 505 [place] [address] Ashlee Meza MD 505 [place] [address] Social History Tobacco Use Types Packs/Day Years [...] documented as of this encounter Care Teams Cutting Machine Fixer Relationship Specialty Start Date End Date Morgan Curran MD [address] [place] [phone] PCP - General Internal Medicine 08/18/24 documented as of this encounter
--- OUTSIDE RECORDS SUMMARY | 2025-03-24 11:13 | XMS_ITS | Encounter Summary ---
Author Organization [employer] Address 75 [facility] 7t [place] [address] Care Team Providers Care Agency Director Name Role Phone Ashlee Meza MD Primary Care Provider Morgan Curran MD Primary Care Prov ider Reason for Visit * Reason Comments Med Refill Encounter Details Date Type Department Care Team ([facility] st Contact Info) Description 08/05/2023 Refill [facility] CH[facility] MED & PEDS 505 [place], [place] [phone] Ashlee Meza MD 505 [place] [address] Social History Tobacco Use Types Packs/Day Years [...] documented as of this encounter Care Teams Agency Director Relationship Specialty Start Date End Date Ashlee Meza MD [address] [place] [phone] PCP - General Family Medicine 03/28/20 08/17/24 Morgan Curran MD [address] [place] [phone] PCP - General Internal Medicine 08/18/24 documented as of this encounter
--- OUTSIDE RECORDS SUMMARY | 2025-03-24 11:13 | XMS_ITS | Encounter Summary ---
Author Organization [employer] Address [address] [place] [address] Care Team Providers Care Hadoop Infrastructure Architect Name Role Phone Morgan Curran MD Primary Care Prov ider Reason for Visit * Reason Onset Date Comments Nurse Triage 11/20/2024 Encounter Details Date Type Department Care Team (Late st Contact Info) Description 11/20/2024 Telephone [facility] MEDICINE [address] [place] [address] Morgan Curran MD 505 [place] [address] Nurse Triage Social History Tobacco Use Types [...] 11/20/2024 9:34 AM EDT Triage call with [facility] Employment Security Officer [place] [id number] Pt reports a buzzing sound in left ear started 2 days ago. Pt also has sx of sneezing, eyes irritated, dizziness. Neg for pain or loss of hearing. Sound is constant. This does interfere with normal activities. ASK apt in [facility] @ 240pm 11/20/24. Pt agrees with disposition [...] documented as of this encounter Care Teams Hadoop Infrastructure Architect Relationship Specialty Start Date End Date Morgan Curran MD [address] [place] [phone] PCP - General Internal Medicine 08/18/24 documented as of this encounter
--- OUTSIDE RECORDS SUMMARY | 2025-03-24 11:13 | XMS_ITS | Encounter Summary ---
Author Organization [employer] [facility] Address [address] [place] [address] Care Team Providers Care Batter Mixer Name Role Phone Ashlee Meza MD Primary Care Provider [phone] Morgan Curran MD Primary Care Prov ider Encounter Details Date Type Department Care Team (Late st Contact Info) Description 09/14/2022 Orders Only [facility]INE [address] [place] [address] Adriana Brock MD [address] [place] [address] Hypothyroidism, unspecified type (Primary Dx) Social History [...] Free T4 1.16 0.32 - 4.0 uIU/mL [facility] 2022 8:28 AM EDT 2022 8:28 AM EDT [facility] External Provider LAB BLO OD ORDERABLES Final Result Performing Organization Address [facility] Co de Phone Number [facility] [address] [place] [phone] * Hepatitis??D Virus (HDV) Antibody, Total (10/03/2022 6:48 AM EST) Hepatitis D Antibody, Total NEGATIVE [facility] Comment:REFERENCE RANGE: NEG ATIVE [...] and its analyticalperformance characteristics have been determinedby [employer]. It has not been cleared orapproved by FDA. This assay has been validatedpursuant to the CLIA regulations and is used forclinical purposes.THIS TEST WAS PERFORMED AT:[employer]/[facility] [id number] [place] [id number] OROZCO MD,PHD,LYNN 10/03/2022 6:48 AM EST 10/03/2022 6:48 AM EST [facility] External Provider LAB BLO OD ORDERABLES Final Result Performing Organization Address City/[facility]/ZIP Co de Phone Number [facility] [address] [place] [address] [phone] * Hepatitis B Core??Antibody (IgM) (10/03/2022 6:48 AM EST) Pathologist [facility] [place] Hepatitis B Core Antibody IgM NON-REACTI VE NON-REACT KIM [facility] Comment:THIS TEST WAS PERFOR MED AT:[employer] [address] [id number] ALBERTS MD 10/03/2022 6:48 AM EST 10/03/2022 6:48 AM EST [facility] External Provider LAB BLO OD ORDERABLES Final Result Performing Organization Address [facility] Co de Phone Number [facility] [address] [place] [address] [phone] * (ABNORMAL) Hepatitis B Virus DNA, Quantitative, Real-Time PCR (10/03/2022 6:48 AM EST) Pathologist [facility] [place] Hepatitis B Viral DNA Qn - cp 2.83(A) NOT DETECTED Log IU/mL [facility] Comment:This test was perfor med using Real-Time Polymerase ChainReaction.Reportable Range: 10 IU/mL to 1,000,000,000 IU/mL.(1.00 Log IU/mL to 9.00 Log IU/mL).The analytical performance characteristics of this assayhave been determined by [employer]. Themodifications have not been cleared or approved by theA. This assay has been validated pursuant to the CLIAregulations and is used for clinical purposes.THIS TEST WAS PERFORMED AT:[employer] [address] [id number] ALBERTS MD Hepatitis B Viral DNA Qn-IU/mL 683(A) NOT DETECTED IU/mL [facility] 10/03/2022 6:48 AM EST 10/03/2022 6:48 AM EST [facility] External Provider LAB BLO OD ORDERABLES Final Result Performing Organization Address City/[facility] Co de Phone Number [facility] [address] [place] [address] [phone] * (ABNORMAL) Hepatitis B Surface Antigen with Reflex Confirmation (10/03/2022 6:48 AM EST) Hepatitis B Surface Ag Confirmed Pos(A) Negative [facility] Comment:RESULTS OF CALLED TO AND READ BACK BY AT 1126 BY WENCESLAO.Results of HBSAG called to and read back byon 10/05/22 at 1134 by WENCESLAO. 10/03/2022 6:48 AM EST 10/03/2022 6:48 AM EST [facility] External Provider LAB BLO OD ORDERABLES Final Result Performing Organization Address [facility] Co de Phone Number [facility] [address] [place] [phone] * HIV Ab/Ag ([place] [facility]) (10/03/2022 6:48 AM EST) HIV AB/AG Nonreactive Nonreactive [facility] Comment:HIV-1 p24 Ag and/or HIV-1/HIV-2 Ab not detected.A test result that is nonreactive does not exclude thepossibility of exposure to or infection with HIV-1 and/orHIV-2. Nonreactive results in this assay for individualswith prior exposure to HIV-1 and/or HIV-2 may be due toantigen and antibody levels that are below the limit ofdetection of this assay.The [employer] HIV Ag/Ab Combo assay result andsupplemental assay results should be interpreted inconjunction with the patient's clinical presentation,history and other laboratory results. If the results areinconsistent with clinical evidence, additional testing issuggested to confirm the result. 10/03/2022 6:48 AM EST 10/03/2022 6:48 AM EST [facility] External Provider LAB BLO OD ORDERABLES Final Result Performing Organization Address [facility] de Phone Number [facility] [address] [place] [phone] * Hepatitis C Ab (10/03/2022 6:48 AM EST) Hepatitis C Antibody Nonreactive Nonreactive [facility] Comment:Antibodies to HCV no t detected; does not exclude early acuteHCV infection. 10/03/2022 6:48 AM EST 10/03/2022 6:48 AM EST [facility] External Provider LAB BLO OD ORDERABLES Final Result Performing Organization Address [facility] [address] [place] [phone] * Hepatitis B Surface Antibody, Qualitative (10/03/2022 6:48 AM EST) ~Hepatitis B Surface Antibody NONREACTIVE Nonreactive [facility] Comment:Nonreactive: < 8.00 mIU/mL 10/03/2022 6:48 AM EST 10/03/2022 6:48 AM EST [facility] External Provider LAB BLO OD ORDERABLES Final Result Performing Organization Address [facility] [address] [place] [phone] * Albumin (10/03/2022 6:48 AM EST) Albumin Level 4.1 3.5 - 5.0 g/dL [facility] 10/03/2022 6:48 AM EST 10/03/2022 6:48 AM EST [facility] External Provider LAB BLO OD ORDERABLES Final Result Performing Organization Address [facility] de Phone Number [facility] [address] [place] [phone] * ALT (10/03/2022 6:48 AM EST) Alanine Aminotransferase 24 0 - 31 U/L [facility] 10/03/2022 6:48 AM EST 10/03/2022 6:48 AM EST [facility] External Provider LAB BLO OD ORDERABLES Final Result Performing Organization Address City/[facility]/ZIP Co de Phone Number [facility] [address] [place] [phone] * AST (10/03/2022 6:48 AM EST) Aspartate Amino Transferase 22 5 - 31 U/L [facility] 10/03/2022 6:48 AM EST 10/03/2022 6:48 AM EST [facility] External Provider LAB BLO OD ORDERABLES Final Result Performing Organization Address [facility]/ZIP Co de Phone Number [facility] [address] [place] [phone] * Bilirubin, Total (10/03/2022 6:48 AM EST) Bilirubin, Total 0.3 0.0 - 1.0 mg/dL [facility] 10/03/2022 6:48 AM EST 10/03/2022 6:48 AM EST [facility] External Provider LAB BLO OD ORDERABLES Final Result Performing Organization Address [facility] Co de Phone Number [facility] [address] [place] [phone] * Glucose, Random (10/03/2022 6:48 AM EST) Glucose 113 60 - 115 mg/dL [facility] 10/03/2022 6:48 AM EST 10/03/2022 6:48 AM EST [facility] External Provider LAB BLO OD ORDERABLES Final Result Performing Organization Address [facility] Co de Phone Number [facility] [address] [place] [phone] * Creatinine, Serum (10/03/2022 6:48 AM EST) Creatinine, Serum 0.86 0.5 - 1.4 mg/dL [facility] Estimated Glomerular Filt Rate >60 [facility] Comment:NOTE: For -Am erican individuals, multiply the result by 1.210.Chronic Kidney Disease: Estimated GFR < 60 mL/min/1.19p0Daqfjp Kidney Disease: Estimated GFR < 15 mL/min/1.73m2 10/03/2022 6:48 AM EST 10/03/2022 6:48 AM EST [facility] External Provider LAB BLO OD ORDERABLES Final Result Performing Organization Address [facility] de Phone Number [facility] [address] [place] [phone] * (ABNORMAL) CBC auto differential (10/03/2022 6:48 AM EST) White Blood Count 4.7(L) 4.8 - 10.8 X10*3/uL [facility] Red Blood Count 4.22 4.20 - 5.50 X10*6/uL [facility] Hemoglobin 12.8 12.0 - 16.0 g/dl [facility] Hematocrit 38.2 37.0 - 47.0 % [facility] Mean Corpuscular Volume 90.5 80.0 - 98.0 fL [facility] Mean Corpuscular Hemoglobin 30.3 27.0 - 33.0 pg [facility] Mean Corpuscular HGB Conc 33.5 31.0 - 35.0 g/dl [facility] Red Cell Distribution Width 12.5 11.0 - 16.0 % [facility] Platelet Count 249 160 - 400 X10*3/uL [facility] Mean Platelet Volume 10.4 9.4 - 12.3 fL [facility] Neutrophils Percent Auto 50.8 45 - 73 % [facility] Imm Gran Pct Auto 0.4 0.0 - 0.4 % [facility] Lymphocytes Percent Auto 38.8 20 - 40 % [facility] Monocytes Percent Auto 6.0 2 - 11 % [facility] Eosinophils Percent Auto 3.4 0 - 4 % [facility] Basophils Percent Auto 0.6 0 - 2 % [facility] NRBC Pct Auto 0.0 0.0 - 0.2 /100WBC [facility] Neutrophils Absolute Auto 2.4 2.0 - 8.3 x10*3/uL [facility] Imm Gran Abs Auto 0.02 0.00 - 0.03 X10*3/uL [facility] Lymphocytes Absolute Auto 1.8 1.2 - 4.9 X10*3/uL [facility] Monocytes Absolute Auto 0.3 0.1 - 1.2 X10*3/uL [facility] Eosinophils Absolute Auto 0.2 0.0 - 0.4 X10*3/uL [facility] Basophils Absolute Auto 0.0 0.0 - 0.2 X10*3/uL [facility] NRBC Abs Auto 0.000 0.0 - 0.012 X10*3/uL [facility] 10/03/2022 6:48 AM EST 10/03/2022 6:48 AM EST us [facility] External Provider LAB BLO OD ORDERABLES Final Result [facility] [address] [place] [phone] documented in this encounter Visit Diagnoses Diagnosis Hypothyroidism, unspecified type- Primary documented in this encounter Care Teams Batter Mixer Relationship Specialty Start Date End Date Ashlee Meza MD [address] [place] [address] PCP - General Family Medicine 03/28/20 08/17/24 Morgan Curran MD [address] [place] [phone] PCP - General Internal Medicine 08/18/24 documented as of this encounter
--- OUTSIDE RECORDS SUMMARY | 2025-03-24 11:13 | XMS_ITS | Encounter Summary ---
Author Organization [employer] [facility] Address [address] [place] [address] Care Team Providers Care Cracking Still Operator Name Role Phone Ashlee Meza MD Primary Care Provider [phone] Morgan Curran MD Primary Care Prov ider Reason for Visit * Reason Comments Med Refill Encounter Details Date Type Department Care Team ([facility] st Contact Info) Description 09/14/2022 Refill [facility]INE [address] [place] [address] Cornell Bucio FNP Anxiety (Primary Dx) Social [...] unspecified documented in this encounter Care Teams Cracking Still Operator Relationship Specialty Start Date End Date Ashlee Meza MD [address] [place] [address] PCP - General Family Medicine 03/28/20 08/17/24 Morgan Curran MD [address] [place] [phone] PCP - General Internal Medicine 08/18/24 documented as of this encounter
--- OUTSIDE RECORDS SUMMARY | 2025-03-24 11:13 | XMS_ITS | Clinical Summary ---
Author Organization [employer] Address [address] [facility] 7[address] [place] [address] Care Team Providers Care Wafer Batter Mixer Name Role Phone Morgan Curran MD [...] HOURS 180 tablet 1 07/26/20 23 Active simethicone (Mylicon) 125 MG chewable tablet CHEW ONE TABLET THREE OR FOUR TIMES DAILY DAILY NEEDED 12/31/19 24 Active albuterol (2.5 MG/3ML) 0.083% nebulizer solutionIndicat ions:Moderate persistent asthma, unspecified whether complicated INHALE ONE AMPULE USING A NEBULIZER FOUR TIMES DAILY NEEDED 90 mL 3 04/02/20 24 Active Arnuity Ellipta 100 MCG/ACT inhaler INHALE ONE PUFF EVERY MORNING, RINSE MOUTH AFTER USE 30 each 5 06/08/20 24 Active Blood Pressure kit 1 Units Once per day. 1 kit 06/10/20 24 Active esomeprazole (NexIUM) [address] capsule Take 1 capsule (20 mg) by mouth before breakfast. Do not open capsule. 30 capsule 11 09/16/19 25 02/19/2 026 Active fluticasone (Flonase) 50 MCG/ACT nasal spray Administer 1-2 sprays into each nostril Once per day. Shake gently. Before first use, prime pump. After use, clean tip and replace cap. 16 g 11/12/19 Active hydroCHLOROthia zide 12.5 MG tabletIndicatio ns:Primary hypertension Take 1 tablet (12.5 mg) by mouth Once per day. 30 tablet 11/21/19 Active loratadine (Claritin) 10 MG tabletIndicatio ns:Allergic rhinitis, unspecified seasonality, unspecified trigger TAKE ONE TABLET BY MOUTH EVERY DAY FOR ALLERGIES 90 tablet 1 11/21/19 Active Acetaminophen Extra Strength 500 MG tabletIndicatio ns:Spasm of cervical paraspinous muscle TAKE ONE TABLET EVERY 6 HOURS NEEDED FOR PAIN 50 tablet 3 12/12/19 Active albuterol (Ventolin HFA) 108 (90 Base) MCG/ACT inhalerIndicati ons:Moderate persistent asthma, unspecified whether complicated INHALE TWO PUFFS EVERY 4 HOURS NEEDED FOR WHEEZING 18 g 12/16/19 Active montelukast (Singulair) 10 MG tablet Take 1 tablet (10 mg) by mouth at bedtime. 90 tablet 12/24/19 25 026 Active amLODIPine (Norvasc) 5 MG tablet Take 1 tablet (5 mg) by mouth Once per day. 90 tablet 12/24/19 026 Active hydrOXYzine HCl (Atarax) 25 MG tabletIndicatio ns:Mixed anxiety and depressive disorder TAKE ONE TABLET BY MOUTH EVERY EIGHT HOURS NEEDED FOR ANXIETY 90 tablet 3 12/30/19 25 Active levothyroxine (Synthroid) 88 MCG tabletIndicatio ns:Hypothyroidi sm, unspecified type Take 1 tablet (88 mcg) by mouth before breakfast. 90 tablet 1 02/20/20 25 026 Active linaCLOtide (Linzess) 145 MCG capsule Take 1 capsule (145 mcg) by mouth before breakfast. Do not crush or chew. 90 capsule 3 02/24/20 25 026 Active clonazePAM (KlonoPIN) 1 MG tabletIndicatio ns:Mixed anxiety and depressive disorder Take 1 tablet (1 mg) by mouth if needed in the morning and at bedtime for anxiety. 56 tablet 02/24/20 25 025 Active clonazePAM (KlonoPIN) 1 MG tabletIndicatio ns:Mixed anxiety and depressive disorder Take 1 tablet (1 mg) by mouth 2 times daily. 56 tablet 12/26/19 25 025 Discontinued(R eorder (will not trigger notification to Pharmacy)) Active Problems Problem Noted Date Diagnosed Date Left thyroid nodule 02/23/2025 Assessment & Plan (02/23/2025 4:11 PM EDT): Patient has hx of a left thyroid nodule, will order a thyroid ultrasound for evalaution Pelvic pressure in female 02/23/2025 Assessment & Plan (02/23/2025 4:12 PM EDT): Patient having urinary incontinence and refers feeling a pelvic pressure, will refer to urogyn A vague feeling of discomfort 05/25/2024 Assessment [...] as needed. Hypertension 01/24/2023 Assessment & Plan (02/23/2025 4:10 PM EDT): Controlled, told to keep a bp log, keep low sodium diet and exercise as tolerated, no changes will be made Assessment & Plan (12/24/2024 10:42 AM EDT): Patient not monitoring her blood pressure on a daily basis, she has white coat syndrome, oriented importance of keeping a bp log, target <140/90, will follow up in 2-3 months. Last time she checked her blood pressure was 133/86 4 days ago. Assessment & Plan (09/18/2023 11:38 AM EST): [...] Time Provider Department Center 09/23/2023 9[facility]45 [facility]23/[facility]23 1:00 PM Nargis Miner PharmD [facility] 10/14/2023 10:00 AM Ashlee Meza MD [facility] Assessment & Plan (03/15/2023 9:20 AM [...] disease) 3 Hypothyroidism 06/27/2022 Assessment & Plan (02/23/2025 4:10 PM EDT): Started yesterday 88mcg dose, told to get retested in 6 weeks Assessment & Plan (12/24/2024 10:43 AM EDT): Dose will be changed to 75mcg daily, will order new tsh to be done in 2 months Assessment & Plan (03/15/2023 9:19 AM EDT): [...] type B viral hepatitis 05/13/2012 Deficiency of ikgchsf-7-octiutsqj dehydrogenase 05/13/2012 Mixed anxiety and depressive disorder [...] Encounters Date Type Department Care Team Description 03/24/2025 Telephone [facility] [address] [place] [address] Morgan Curran MD Change PCP 02/25/2025 Refill [facility] [address] [place] [address] Ashlee Meza MD 02/23/2025 2:30 PM EDT Telemedicine [facility] [address] [place] [address] Morgan Curran MD Left thyroid nodule (Primary Dx); Mixed anxiety and depressive disorder; Primary hypertension; Hypothyroidism, unspecified type; Pelvic pressure in female 02/23/2025 Travel 02/19/2025 Orders Only [facility] [address] [place] [address] Sonya Isaacs ANP Hypothyroidism, unspecified type (Primary Dx) 02/19/2025 Results Follow-Up [address] [address] Sonya Isaacs ANP TSH W/Reflex to FT4 02/19/2025 Orders Only [facility] [address] [place], [place] [phone] Morgan Curran MD 01/19/[address] [address] Morgan Curran MD Hypothyroidism, unspecified type 01/19/2025 Telephone [facility] [address] [place] [address] Morgan Curran MD Med Refill 12/29/2024 Results Follow-Up [address] [phone] Tonya Serrato, RN MR Brain w/o Contrast 12/29/2024 Orders Only [facility] [address] [place] [address] Ebenezer Acuña MD Unilateral subjective nonpulsatile tinnitus without hearing loss, otoscopic finding, neurologic deficit, or head trauma (Primary Dx) 12/27/2024 Refill [facility] [address] [place] [address] Ashlee Meza MD Mixed anxiety and depressive disorder 12/24/2024 Refill [facility] [address] [place] [address] Marbella Love RN Mixed anxiety and depressive disorder 12/24/2024 Telephone [facility] [address] [place], [place] [phone] Morgan Curran MD 12/23/2024 11:30 AM EDT Telemedicine [facility] [address] [place], [place] [phone] Morgan Curran MD Acquired hypothyroidism (Primary Dx); Primary hypertension 12/23/2024 Travel from Last 3 Months Immunizations Immunization Administration Dates Next Due Hep A, Adult [...] Sign Reading Time Taken Comments Blood Pressure 120/83 02/23/2025 2:57 PM EDT Pulse 65 02/23/2025 2:57 PM EDT Temperature 36.6 C (97.9 F) 11/20/2024 2:11 PM EDT Respiratory Rate 20 11/20/2024 2:11 PM EDT Oxygen Saturation 99% 11/20/2024 2:11 PM EDT Inhaled Oxygen Concentration - - Weight 68.9 kg (152 lb) 11/20/2024 2:11 PM EDT Height 153 cm (5' 0.24 ) 11/20/2024 2:11 PM EDT Body Mass Index 29.45 11/20/2024 2:11 PM EDT Plan of Treatment Health Maintenance Due Date Last Done Comments CT Colonography 1970 FIT DNA/Cologuard 1970 FIT 1970 FOBT 1970 Sigmoidoscopy 1970 Hepatitis B Vaccines (1 of 3 - 19+ 3-dose series) 1988 COVID-19 Vaccine ( season) 2024 03/15/2021, 02/21/2021, 01/12/2021 Influenza Vaccine (#1) 2025 , 07/01/2022, 05/05/2020, Additional history exists Alcohol/Substance Use Screening 05/25/2025 05/25/2024 Depression Screening 05/25/2025 05/25/2024, 05/25/20 24 Disability Screening 08/12/2025 08/12/2024 Colonoscopy 09/20/2025 09/20/2020 Colorectal Cancer Screening 09/20/2025 Diabetes: Hemoglobin A1C 11/20/2025 025, 08/13/2024, 09/13/2022, Additional history exists Tobacco Screening 11/20/2025 11/20/2024 SDOH Screening 12/23/2025 12/23/2024 Mammogram 01/20/2026 01/21/2024, 12/28, 05/07/2020, Additional history exists Pap Smear 03/17/2027 03/17/2024 DTaP/Tdap/Td Vaccines (2 - Td or Tdap) 01/14/2028 01/13/2018 Cervical Cancer Screening 03/17/2029 HPV/Cotest 03/17/2029 03/17/2024 Lipid Panel 08/13/2029 08/13/2024, 12/28, 12/25/2022, Additional history exists RSV Patients and Patients Aged 60 years or older (1 - 1-dose 75+ series) 2044 Hepatitis A Vaccines Completed 01/13/2018, 01/19/20 10 HIV Screening Completed 10/03/2022, 03/2022, 11/09/2021, Additional history exists Hepatitis C [...] patient's age to complete this topic Meningococcal B Vaccine Aged Out No l onger eligible based on patient's age to complete [...] Procedure Name Priority Date/Time Associated Diagnosis Comments T4, FREE Routine 02/19/2025 10:48 AM EDT TSH W/REFLEX TO FT4 Routine 02/19/2025 1 0:48 AM EDT Acquired hypothyroidism MR BRAIN WO CONTRAST Routine 12/29/2024 10:33 AM EDT POCT GLYCATED HEMOGLOBIN, TOTAL Routine 11/20/2024 3:31 PM EDT Deficiency of cxzuwkx-4-qqcbmkefi dehydrogenase LIPID PANEL, STANDARD Routine 08/13/2024 8:06 AM [...] Recently Relevant to Health Maintenance Results * (ABNORMAL) TSH W/Reflex to FT4 (02/19/2025 10:48 AM EDT) TSH reflex Free T4 8.80(H) 0.32 - 4.0 uIU/mL [facility] Blood Venous blood specimen / Unknown 02/19/2025 10:48 AM EDT 02/19/2025 1:50 PM EDT us Morgan Huffman MD LAB BLOOD ORDERABL ES Final Result [facility] [address] [place] [phone] * T4, Free (02/19/2025 10:48 AM EDT) Free T4 (Free Thyroxine) 0.76 0.71 - 1.85 ng/dL [facility] 02/19/2025 10:4 8 AM EDT 02/19/2025 1:50 PM EDT us Morgan Huffman MD LAB BLOOD ORDERABL ES Final Result [facility] [address] [place] [phone] * MR Brain w/o Contrast (12/29/2024 10:33 AM EDT) Anatomical Region Laterality Modality Brain Magnetic Resonan ce 12/29/2024 10:3 3 AM EDT Narrative 12/29/2024 11:49 AM EDT [address] [address] Magnetic Resonance Report Signed Patient: Abilio Olivares MR#: [id number] 73 : 1970 Acct:[id number] Age/Sex: 54 / F ADM Date: 12/29/24 Loc: HO.MRI Attending Dr: Ebenezer Acuña MD Ordering Physician: Ebenezer Acuña MD Date of Service: 12/29/24 Procedure(s): MR head/brain wo con Accession Number(s): [id number] cc: Ebenezer Acuña MD; Morgan Curran MD [...] Moose Mata MD 12/29/2024 11:46 AM EDT RP Dictated By: Moose Mata MD Signed By: <Electronically signed by Moose Mata MD in OV> 12/29/24 1146 DD/ 1033 TD/TT: 12/29/24 1104 Chest Painting Leader: Procedure Note Donotuseinterpreter, Image - 12/29/2024 [place] [address] Magnetic Resonance Report Signed Patient: Abilio Olivares#: [id number] 73 : 1970Acct:[id number] Age/Sex: 54 / FADM Date: 12/29/24 Loc: HO.MRI Attending Dr: Ebenezer Acuña MD Ordering Physician: Ebenezer Acuña MD Date of Service: 12/29/24 Procedure(s): MR head/brain wo con Accession Number(s): [id number] cc: Ebenezer Acuña MD; Morgan Curran MD [...] Moose Mata MD 12/29/2024 11:46 AM EDT RP Dictated By: Moose Mata MD Signed By: <Electronically signed by Moose Mata MD in OV> 12/29/24 1146 DD/ 1033 TD/TT: 12/29/24 1104 Chest Painting Leader: Ebenezer Acuña MD IMG MRI PROCEDURES Final Re sult * POCT HGB A1C (11/20/2024 3:31 PM EDT) Hemoglobin A1C 5.9 4.0 - 6.0 % QC Media Lot # [id number] Lot# Expiration Date ,967 Blood 11/20/2024 3:31 PM EDT Ebenezer Acuña MD POINT OF CARE TEST ENTER/ED IT ORDERABLES Final Result * (ABNORMAL) Lipid Panel, Standard (08/13/2024 8:06 AM EST) Triglycerides 109 <150 mg/dL [facility] Comment:Desirable Triglyceri de: less than 150 mg/dLBorderline High Triglyceride 150-199 mg/dLHigh Triglyceride: 200-499 mg/dLVery High Triglyceride: greater than or equal to 5OO mg/dL Cholesterol 193 <200 mg/dL [facility] Comment:Desirable Cholestero l: less than 200 mg/dLBorderline High Cholesterol: 200-239 mg/dLHigh Cholesterol: greater than 239 mg/dL LDL Cholesterol Calculated 123(H) <100 mg/dL [facility] Comment:Desirable LDL: less than 100 mg/dLNear Optimal/Above Optimal LDL: 110- 129 mg/dLBorderline High LDL: 130-159 mg/dLHigh LDL: 160-189 mg/dLVery High LDL: greater than or equal to 190 mg/dL HDL Cholesterol 49 >40 mg/dL [facility] Comment:Desirable HDL: great er than 40 mg/dL Note: This HDL assay may give artificially low results in patients with liver disease. Blood Venous blood specimen / Unknown 08/13/2024 8:06 AM EST 08/13/2024 8:06 AM EST Morgan Huffman MD LAB BLOOD ORDERABL ES Final Result [facility] [address] [place] [phone] * ThinPrep Imaging Pap and HPV mRNA E6/E7 (03/17/2024 10:00 AM EDT) HPV nRNA E6/E7 Not Detected Not Detected [facility] Comment:Methodology: Transcr iption-Mediated AmplificationThis assay detects E6/E7 viral messenger RNA (mRNA) from 14high-risk HPV types (16,18,31,33,35,39,45,51,52,56,58,59,66,68).Cervical sources are required for HPV testing.If a vaginal source from a patient who has had atotal hysterectomy with removal of cervix wassubmitted, please contact the testing laboratoryfor alternative testing options.For additional information, please refer tohttp://education.questdiagnostics.com/faq/XPN307i9(This link if provided for information/educational purposes only.)THIS TEST WAS PERFORMED AT:[facility] [address] [phone] ALBERTS MD SOURCE: SEE NOTE [facility] Comment:None given Report Status: [facility] Clinical Information: SEE NOTE [facility] Comment:None given LMP: SEE NOTE [facility] Comment:NONE GIVEN Prev. PAP: SEE NOTE [facility] Comment:NONE GIVEN Prev. BX: SEE NOTE [facility] Comment:NONE GIVEN Statement Of Adequacy: SEE NOTE [facility] Comment:SATISFACTORY FOR JU[employer]ON LUATION General Categorization: [facility] Interpretation/Result: SEE NOTE [facility] Comment:Cytology Results: Ne gative for intraepitheliallesion or malignancy.Atrophic pattern; predominantly parabasal cells Cytology Comment SEE NOTE [facility] Comment:This Pap test has be en evaluated with computerassisted technology. Electrician Deck: SEE NOTE [facility] Comment:DMM, CT(ASCP)CT scre ening location: [address] [address] Review Electrician Deck: [facility] Pathologist [facility] PAP Infection [facility] See Note SEE NOTE [facility] Comment:EXPLANATORY NOTE:The Pap is a screening test for cervical cancer. It isnot a diagnostic test and is subject to false negativeand false positive results. It is most reliable when asatisfactory sample, regularly obtained, is submittedwith relevant clinical findings and history, and whenthe Pap result is evaluated along with historic andcurrent clinical information. 03/17/2024 10:0 0 AM EDT 03/17/2024 2:30 PM EDT Narrative [facility] - 03/20/2024 2:55 PM EDT SEE SCANNED RESULTS IN EMR us Ashlee Meza MD LAB PATHOLOGY ORDERABLES Erika hilario Result [facility] [address] [place] [address] [phone] * BI Mammogram Screening Tomosynthesis Bilateral (01/21/2024 11:36 AM EDT) Anatomical Region Laterality Modality Breast Bilateral Mammography 01/21/2024 11:3 6 AM EDT Narrative 02/19/2024 11:23 PM EDT [facility] [address] [place] [address] Mammography Report Signed Patient: Abilio Olivares MR#: [id number] 73 : 1970 Acct:[id number] Age/Sex: 53 / F ADM Date: 01/21/24 Loc: [facility] Attending Dr: Ashlee Meza MD Ordering Physician: Ashlee Meza MD Results: 2Beni gn Findings Date of Service: 01/21/24 Follow Up: 1 Year From [facility] ina Mammogram Procedure(s): MM tomosynthesis screening BI Accession Number(s): [id number] cc: Ashlee Meza MD EXAMINATION: MM SCREENING [...] signed by Jennifer Sargent MD in OV> 02/19/242318 DD/ 1136 TD/TT: Chest Painting Leader: Procedure Note Donotuseinterpreter, Image - 02/19/2024 [facility] [address] [place] [address] Mammography Report Signed Patient: Regina Olivares#: [id number] 73 : 1970Acct:[id number] Age/Sex: 53 / FADM Date: 01/21/24 Loc: HO.MAMMO Attending Dr: Ashlee Meza MD Ordering Physician: Ashlee Meza MDResults: 2Beni gn Findings Date of Service: 01/21/24Follow Up: 1 Year From Orig inal Mammogram Procedure(s): MM tomosynthesis screening BI Accession Number(s): [id number] cc: Ashlee Meza MD EXAMINATION: MM SCREENING [...] signed by Jennifer Sargent MD in OV> 02/19/242318 DD/ 1136 TD/TT: Chest Painting Leader: us Ashlee eMza MD IMG BI PROCEDURES Edited Resu lt - Final * Hepatitis C Ab (10/03/2022 6:48 AM EST) Hepatitis C Antibody Nonreactive Nonreactive [facility] Comment:Antibodies to HCV no t detected; does not exclude early acuteHCV infection. 10/03/2022 6:48 AM EST 10/03/2022 6:48 AM EST [facility] External Provider LAB BLO OD ORDERABLES Final Result Performing Organization Address [facility]/ZIP Co de Phone Number [facility] [address] [place] [phone] * HIV Ab/Ag ([facility]) (10/03/2022 6:48 AM EST) HIV AB/AG Nonreactive Nonreactive [facility] Comment:HIV-1 p24 Ag and/or HIV-1/HIV-2 Ab not detected.A test result that is nonreactive does not exclude thepossibility of exposure to or infection with HIV-1 and/orHIV-2. Nonreactive results in this assay for individualswith prior exposure to HIV-1 and/or HIV-2 may be due toantigen and antibody levels that are below the limit ofdetection of this assay.[employer] HIV Ag/Ab Combo assay result andsupplemental assay results should be interpreted inconjunction with the patient's clinical presentation,history and other laboratory results. If the results areinconsistent with clinical evidence, additional testing issuggested to confirm the result. 10/03/2022 6:48 AM EST 10/03/2022 6:48 AM EST [facility] External Provider LAB BLO OD ORDERABLES Final Result Performing Organization Address [facility]/ZIP Co de Phone Number [facility] [address] [place] [phone] * Hm Colonoscopy (09/20/2020) Colonoscopy Normal Normal Narrative Kaia Miranda - 09/20/2020 Recommended 5 year follow up us Historical Provider HEALTH MAINTENANCE Edited Result - Final from Last 3 Months or Most Recently Relevant to Health Maintenance Insurance [facility] [employer] Care Teams Wafer Batter Mixer Relationship Specialty Start Date End Date Morgan Curran MD [address] [place] [phone] PCP - General Internal Medicine 08/18/24
[2025-03-24 14:45] LABS: MANUAL DIFF FLAG NO
[2025-03-24 14:50] LABS: Hematocrit 38.3 % (37.0-47.0); Hemoglobin 12.7 g/dl (12.0-16.0); Imm Gran Abs Auto 0.01 X10*3/uL (0.00-0.03); Imm Gran Pct Auto 0.2 % (0.0-0.4); Lymphocytes Absolute Auto 1.7 X10*3/uL (1.2-4.9); Mean Corpuscular HGB Conc 33.2 g/dl (31.0-35.0); Mean Corpuscular Hemoglobin 31.1 pg (27.0-33.0); Mean Corpuscular Volume 93.6 fL (80.0-98.0); NRBC Abs Auto 0.000 X10*3/uL (0.0-0.012); NRBC Pct Auto 0.0 /100WBC (0.0-0.2); Platelet Count 249 X10*3/uL (160-400); Red Blood Count 4.09 X10*6/uL (4.20-5.50); White Blood Count 4.0 X10*3/uL (4.8-10.8)
[2025-03-24 15:10] LABS: Alanine Aminotransferase 26 U/L (0-31); Albumin Level 4.2 g/dL (3.5-5.0); Alkaline Phosphatase 88 U/L (39-117); Anion Gap 11 (12-20); Aspartate Amino Transferase 34 U/L (5-31); Blood Urea Nitrogen 13 mg/dL (9-16); Calcium 9.5 mg/dL (8.4-10.2); Carbon Dioxide 23 mmol/L (22-29); Chloride 109 mmol/L (96-108); Cholesterol 178 mg/dL (<200); Estimated Glomerular Filt Rate > 60; HDL Cholesterol 49 mg/dL (>40); Potassium 4.3 mmol/L (3.3-5.1); Sodium 139 mmol/L (135-145); Total Protein 7.2 g/dL (6.5-8.0); Triglycerides 98 mg/dL (<150)
[2025-03-24 18:57] LABS: Free T4 (Free Thyroxine) 1.44 ng/dL (0.71-1.85)
== END 2025-03-24 10:18 | disposition home or self-care (01) ==
LOC: HO.CHCLDS 10:17
PROVIDERS: PCP Internal Medicine; Visit Provider Nurse Practitioner Primary Care
DX: E03.9 Hypothyroidism, unspecified (principal); Z79.899 Other long term (current) drug therapy
CPT/HCPCS: 36415; 80053; 80061; 80076; 82248; 84439; 84443; 85025

== ENCOUNTER 2025-03-25 14:55 | Outpatient (REF) | payer MEDICAID, SELFPAY ==
--- NOTE | ~2025-03-25 | US_ITS ---
EXAMINATION: US THYROID HISTORY: left thyroid nodule TECHNIQUE: Real-time grayscale ultrasound imaging was performed and images were reviewed. COMPARISON: Comparison is made with the prior examination dated 06/05/2021. FINDINGS: SIZE: The right thyroid lobe measures 2.5 x 1.1 x 1.0 cm. The left thyroid lobe measures 2.8 x 1.2 x 0.7 cm. The isthmus measures 2 mm. FLOW: Flow to the gland is normal. ECHOGENICITY: The echotexture of the gland is mildly heterogeneous. NODULES: No nodules are identified on the current examination. US/US thyroid IMPRESSION: Unremarkable thyroid ultrasound. The previously seen nodule at the lower pole of the left thyroid lobe is not identified. ACR TI-RADS Guidelines TR1 (0 points): Benign. No follow-up or biopsy required TR2 (2 points): Not Suspicious. No biopsy or follow up indicated TR3 (3 points): Mildly Suspicious. FNA if >= 2.5 cm, Follow if >= 1.5 cm TR4 (4-6 points): Moderately Suspicious. FNA if >= 1.5 cm, Follow if >= 1.0 cm TR5 (>=7 points): Highly Suspicious. FNA if >= 1.0 cm, Follow if >= 0.5 cm Electronically signed by: Moose Mata MD 03/25/2025 03:39 PM EDT
--- OUTSIDE RECORDS SUMMARY | 2025-03-25 15:36 | XMS_ITS | Encounter Summary ---
Author Organization [employer] Address [address] [facility] [address]t [place] [address] Care Team Providers Care Director Veterinary Name Role Phone Ashlee Meza MD Primary Care Provider [phone] Morgan Curran MD Primary Care Prov ider Reason for Visit * Reason Comments Med Refill Encounter Details Date Type Department Care Team ([facility] st Contact Info) Description 08/05/2023 Refill [facility] [address] [place], [place] [phone] Ashlee Meza MD [address] [place] [address] Social History Tobacco Use Types Packs/Day Years [...] as of this encounter Care Teams Director Veterinary Relationship Specialty Start Date End Date Ashlee Meza MD [address] [place] [phone] PCP - General Family Medicine 03/28/20 08/17/24 Morgan Curran MD [address] [place] [phone] PCP - General Internal Medicine 08/18/24 documented as of this encounter
--- OUTSIDE RECORDS SUMMARY | 2025-03-25 15:36 | XMS_ITS | Encounter Summary ---
Author Organization [employer] Address [address] [place] [address] [place] [address] Care Team Providers Care Vending Manager Name Role Phone Ashlee Meza MD Primary Care Provider [phone] Morgan Curran MD Primary Care Prov ider Encounter Details Date Type Department Care Team (Late st Contact Info) Description 08/07/2022 Telephone [facility] [address] [place], [place] [phone] Ashlee Meza MD [address] [place] [address] Social History Tobacco Use Types Packs/Day Years [...] on filedocumented in this encounter Care Teams Vending Manager Relationship Specialty Start Date End Date Ashlee Meza MD [address] [place] [address] PCP - General Family Medicine 03/28/20 08/17/24 Morgan Curran MD [address] [place] [phone] PCP - General Internal Medicine 08/18/24 documented as of this encounter
--- OUTSIDE RECORDS SUMMARY | 2025-03-25 15:36 | XMS_ITS | Encounter Summary ---
Author Organization [employer] Address [address] [facility] [address] [place] [address] Care Team Providers Care Diesel Pile Hammer Operator Name Role Phone Morgan Curran MD Primary Care Prov ider Reason for Visit * Reason Onset Date Comments Med Refill 09/15/2024 Encounter Details Date Type Department Care Team (Late st Contact Info) Description 09/15/[address] [facility] [address] [place] [address] Ashlee Meza MD [address] [place] [address] Spasm of cervical paraspinous muscle Social History [...] documented as of this encounter Care Teams Diesel Pile Hammer Operator Relationship Specialty Start Date End Date Morgan Curran MD [address] [place] [phone] PCP - General Internal Medicine 08/18/24 documented as of this encounter
--- OUTSIDE RECORDS SUMMARY | 2025-03-25 15:36 | XMS_ITS | Encounter Summary ---
Author Organization [employer] [facility] Address [address] [place] [address] Care Team Providers Care Artist Mannequin Coloring Name Role Phone Ashlee Meaz MD Primary Care Provider [phone] Morgan Curran MD Primary Care Prov ider Encounter Details Date Type Department Care Team (Late st Contact Info) Description 09/14/2022 Orders Only [facility] MEDICINE [address] [place] [address] Adriana Brock MD [address] [place] [address] Hypothyroidism, unspecified type (Primary Dx) Social History [...] Free T4 1.16 0.32 - 4.0 uIU/mL [facility] 2022 8:28 AM EDT 2022 8:28 AM EDT [facility] External Provider LAB BLO OD ORDERABLES Final Result Performing Organization Address [facility] Co de Phone Number [facility] [address] [place] [phone] * Hepatitis??D Virus (HDV) Antibody, Total (10/03/2022 6:48 AM EST) Hepatitis D Antibody, Total NEGATIVE [facility] Comment:REFERENCE RANGE: NEG ATIVE INTERPRETIVE CRITERIA: [...] and its analyticalperformance characteristics have been determinedby [email or web address]. It has not been cleared orapproved by FDA. This assay has been validatedpursuant to the CLIA regulations and is used forclinical purposes.THIS TEST WAS PERFORMED AT:Footnote/[employer] [id number] [place] [id number] OROZCO MD,PHD,LYNN 10/03/2022 6:48 AM EST 10/03/2022 6:48 AM EST [facility] External Provider LAB BLO OD ORDERABLES Final Result Performing Organization Address City/[facility]/ZIP Co de Phone Number [facility] [address] [place] [phone] * Hepatitis B Core??Antibody (IgM) (10/03/2022 6:48 AM EST) Pathologist [facility] Hepatitis B Core Antibody IgM NON-REACTI VE NON-REACT KIM [facility] Comment:THIS TEST WAS PERFOR MED AT:Footnote [address] [id number] ALBERTS MD 10/03/2022 6:48 AM EST 10/03/2022 6:48 AM EST [facility] External Provider LAB BLO OD ORDERABLES Final Result Performing Organization Address [facility] Co de Phone Number [facility] [address] [place] [phone] [phone] * (ABNORMAL) Hepatitis B Virus DNA, Quantitative, Real-Time PCR (10/03/2022 6:48 AM EST) Pathologist [facility] Hepatitis B Viral DNA Qn - cp 2.83(A) NOT DETECTED Log IU/mL [facility] Comment:This test was perfor med using Real-Time Polymerase ChainReaction.Reportable Range: 10 IU/mL to 1,000,000,000 IU/mL.(1.00 Log IU/mL to 9.00 Log IU/mL).The analytical performance characteristics of this assayhave been determined by [email or web address]. Themodifications have not been cleared or approved by theA. This assay has been validated pursuant to the CLIAregulations and is used for clinical purposes.THIS TEST WAS PERFORMED AT:[employer] [address] [id number] ALBERTS MD Hepatitis B Viral DNA Qn-IU/mL 683(A) NOT DETECTED IU/mL [facility] 10/03/2022 6:48 AM EST 10/03/2022 6:48 AM EST [facility] External Provider LAB BLO OD ORDERABLES Final Result Performing Organization Address City/[facility] Co de Phone Number [facility] [address] [place] [phone] * (ABNORMAL) Hepatitis B Surface Antigen with Reflex Confirmation (10/03/2022 6:48 AM EST) Hepatitis B Surface Ag Confirmed Pos(A) Negative [facility] Comment:RESULTS OF CALLED TO AND READ BACK BY AT 1126 BY WENCESLAO.Results of HBSAG called to and read back byon 10/05/22 at 1134 by WENCESLAO. 10/03/2022 6:48 AM EST 10/03/2022 6:48 AM EST [facility] External Provider LAB BLO OD ORDERABLES Final Result Performing Organization Address [facility] Co de Phone Number [facility] [address] [place] [phone] * HIV Ab/Ag ([place] DPH) (10/03/2022 6:48 AM EST) HIV AB/AG Nonreactive Nonreactive [facility] Comment:HIV-1 p24 Ag and/or HIV-1/HIV-2 Ab not detected.A test result that is nonreactive does not exclude thepossibility of exposure to or infection with HIV-1 and/orHIV-2. Nonreactive results in this assay for individualswith prior exposure to HIV-1 and/or HIV-2 may be due toantigen and antibody levels that are below the limit ofdetection of this assay.The [employer] HIV Ag/Ab Combo assay result andsupplemental assay results should be interpreted inconjunction with the patient's clinical presentation,history and other laboratory results. If the results areinconsistent with clinical evidence, additional testing issuggested to confirm the result. 10/03/2022 6:48 AM EST 10/03/2022 6:48 AM EST [facility] External Provider LAB BLO OD ORDERABLES Final Result Performing Organization Address [facility] de Phone Number [facility] [address] [place] [phone] * Hepatitis C Ab (10/03/2022 6:48 AM EST) Hepatitis C Antibody Nonreactive Nonreactive [facility] Comment:Antibodies to HCV no t detected; does not exclude early acuteHCV infection. 10/03/2022 6:48 AM EST 10/03/2022 6:48 AM EST [facility] External Provider LAB BLO OD ORDERABLES Final Result Performing Organization Address [facility] [address] [place] [phone] * Hepatitis B Surface Antibody, Qualitative (10/03/2022 6:48 AM EST) ~Hepatitis B Surface Antibody NONREACTIVE Nonreactive [facility] Comment:Nonreactive: < 8.00 mIU/mL 10/03/2022 6:48 AM EST 10/03/2022 6:48 AM EST [facility] External Provider LAB BLO OD ORDERABLES Final Result Performing Organization Address [facility] [address] [place] [phone] * Albumin (10/03/2022 6:48 AM EST) Albumin Level 4.1 3.5 - 5.0 g/dL [facility] 10/03/2022 6:48 AM EST 10/03/2022 6:48 AM EST [facility] External Provider LAB BLO OD ORDERABLES Final Result Performing Organization Address [facility] de Phone Number [facility] [address] [place] [phone] * ALT (10/03/2022 6:48 AM EST) Alanine Aminotransferase 24 0 - 31 U/L [facility] 10/03/2022 6:48 AM EST 10/03/2022 6:48 AM EST [facility] External Provider LAB BLO OD ORDERABLES Final Result Performing Organization Address City/[facility]/ZIP Co de Phone Number [facility] [address] [place] [phone] * AST (10/03/2022 6:48 AM EST) Aspartate Amino Transferase 22 5 - 31 U/L [facility] 10/03/2022 6:48 AM EST 10/03/2022 6:48 AM EST [facility] External Provider LAB BLO OD ORDERABLES Final Result Performing Organization Address [facility]/ZIP Co de Phone Number [facility] [address] [place] [phone] * Bilirubin, Total (10/03/2022 6:48 AM EST) Bilirubin, Total 0.3 0.0 - 1.0 mg/dL [facility] 10/03/2022 6:48 AM EST 10/03/2022 6:48 AM EST [facility] External Provider LAB BLO OD ORDERABLES Final Result Performing Organization Address [facility] Co de Phone Number [facility] [address] [place] [phone] * Glucose, Random (10/03/2022 6:48 AM EST) Glucose 113 60 - 115 mg/dL [facility] 10/03/2022 6:48 AM EST 10/03/2022 6:48 AM EST [facility] External Provider LAB BLO OD ORDERABLES Final Result Performing Organization Address [facility] Co de Phone Number [facility] [address] [place] [phone] * Creatinine, Serum (10/03/2022 6:48 AM EST) Creatinine, Serum 0.86 0.5 - 1.4 mg/dL [facility] Estimated Glomerular Filt Rate >60 [facility] Comment:NOTE: For -Am erican individuals, multiply the result by 1.210.Chronic Kidney Disease: Estimated GFR < 60 mL/min/1.23q3Pdfwvi Kidney Disease: Estimated GFR < 15 mL/min/1.73m2 10/03/2022 6:48 AM EST 10/03/2022 6:48 AM EST [facility] External Provider LAB BLO OD ORDERABLES Final Result Performing Organization Address [facility] de Phone Number [facility] [address] [place] [phone] * (ABNORMAL) CBC auto differential (10/03/2022 6:48 AM EST) White Blood Count 4.7(L) 4.8 - 10.8 X10*3/uL [facility] Red Blood Count 4.22 4.20 - 5.50 X10*6/uL [facility] Hemoglobin 12.8 12.0 - 16.0 g/dl [facility] Hematocrit 38.2 37.0 - 47.0 % [facility] Mean Corpuscular Volume 90.5 80.0 - 98.0 fL [facility] Mean Corpuscular Hemoglobin 30.3 27.0 - 33.0 pg [facility] Mean Corpuscular HGB Conc 33.5 31.0 - 35.0 g/dl [facility] Red Cell Distribution Width 12.5 11.0 - 16.0 % [facility] Platelet Count 249 160 - 400 X10*3/uL [facility] Mean Platelet Volume 10.4 9.4 - 12.3 fL [facility] Neutrophils Percent Auto 50.8 45 - 73 % [facility] Imm Gran Pct Auto 0.4 0.0 - 0.4 % [facility] Lymphocytes Percent Auto 38.8 20 - 40 % [facility] Monocytes Percent Auto 6.0 2 - 11 % [facility] Eosinophils Percent Auto 3.4 0 - 4 % [facility] Basophils Percent Auto 0.6 0 - 2 % [facility] NRBC Pct Auto 0.0 0.0 - 0.2 /100WBC [facility] Neutrophils Absolute Auto 2.4 2.0 - 8.3 x10*3/uL [facility] Imm Gran Abs Auto 0.02 0.00 - 0.03 X10*3/uL [facility] Lymphocytes Absolute Auto 1.8 1.2 - 4.9 X10*3/uL [facility] Monocytes Absolute Auto 0.3 0.1 - 1.2 X10*3/uL [facility] Eosinophils Absolute Auto 0.2 0.0 - 0.4 X10*3/uL [facility] Basophils Absolute Auto 0.0 0.0 - 0.2 X10*3/uL [facility] NRBC Abs Auto 0.000 0.0 - 0.012 X10*3/uL [facility] 10/03/2022 6:48 AM EST 10/03/2022 6:48 AM EST us [facility] External Provider LAB BLO OD ORDERABLES Final Result [facility] [address] [place] [phone] documented in this encounter Visit Diagnoses Diagnosis Hypothyroidism, unspecified type- Primary documented in this encounter Care Teams Artist Mannequin Coloring Relationship Specialty Start Date End Date Ashlee Meza MD [address] [place] [address] PCP - General Family Medicine 03/28/20 08/17/24 Morgan Curran MD [address] [place] [phone] PCP - General Internal Medicine 08/18/24 documented as of this encounter
--- OUTSIDE RECORDS SUMMARY | 2025-03-25 15:36 | XMS_ITS | Encounter Summary ---
Author Organization [employer] Address [address] [place] [address] Care Team Providers Care Shop Girl Name Role Phone Morgan Curran MD Primary Care Prov ider Encounter Details Date Type Department Care Team (Late st Contact Info) Description 03/24/2025 Orders Only GENERIC EXTERNAL DATA DEPARTMENT Provider, [...] Procedure Name Priority Date/Time Associated Diagnosis Comments COMPREHENSIVE METABOLIC PANEL, FASTING Routine 03/24/2025 10:30 AM EDT CBC WITH AUTO DIFFERENTIAL Routine 03/24/2025 10:30 AM EDT T4, FREE Routine 03/24/2025 10:30 AM EDT HEPATIC FUNCTION PANEL Routine 10:30 AM EDT LIPID PANEL, STANDARD Routine 03/24/2025 10:30 AM EDT documented in this encounter Results * T4, Free (03/24/2025 10:30 AM EDT) Free T4 (Free Thyroxine) 1.44 0.71 - 1.85 ng/dL [facility] 03/24/2025 10:3 0 AM EDT 03/24/2025 2:37 PM EDT us [employer] LAB BLOOD ORDERABLES Final Resul t [facility] [address] [place] [phone] * (ABNORMAL) Lipid Panel, Standard (03/24/2025 10:30 AM EDT) Triglycerides 98 <150 mg/dL [facility] Comment:Desirable Triglyceri de: less than 150 mg/dLBorderline High Triglyceride 150-199 mg/dLHigh Triglyceride: 200-499 mg/dLVery High Triglyceride: greater than or equal to 5OO mg/dL Cholesterol 178 <200 mg/dL [facility] Comment:Desirable Cholestero l: less than 200 mg/dLBorderline High Cholesterol: 200-239 mg/dLHigh Cholesterol: greater than 239 mg/dL LDL Cholesterol Calculated 110(H) <100 mg/dL [facility] Comment:Desirable LDL: less than 100 mg/dLNear Optimal/Above Optimal LDL: 110- 129 mg/dLBorderline High LDL: 130-159 mg/dLHigh LDL: 160-189 mg/dLVery High LDL: greater than or equal to 190 mg/dL HDL Cholesterol 49 >40 mg/dL [facility] Comment:Desirable HDL: great er than 40 mg/dL Note: This HDL assay may give artificially low results in patients with liver disease. 03/24/2025 10:3 0 AM EDT 03/24/2025 2:37 PM EDT us Generic External Data Provider LAB BLOOD ORDERAB LES Final Result Performing Organization Address [facility]/ZIP Co de Phone Number [facility] [address] [place] [phone] * Hepatic Function Panel (03/24/2025 10:30 AM EDT) Bilirubin, Direct 0.2 0.0 - 0.5 mg/dL [facility] 03/24/2025 10:3 0 AM EDT 03/24/2025 2:37 PM EDT us Generic External Data Provider LAB BLOOD ORDERAB LES Final Result Performing Organization Address City/[facility] Co de Phone Number [facility] [address] [place] [phone] * (ABNORMAL) Comprehensive Metabolic Panel, Fasting (03/24/2025 10:30 AM EDT) Sodium 139 135 - 145 mmol/L [facility] Potassium 4.3 3.3 - 5.1 mmol/L [facility] Chloride 109(H) 96 - 108 mmol/L [facility] Carbon Dioxide 23 22 - 29 mmol/L [facility] Anion Gap 11(L) 12 - 20 [facility] Urea Nitrogen (BUN) 13 9 - 16 mg/dL [facility] Creatinine, Serum 0.85 0.5 - 1.4 mg/dL [facility] Estimated Glomerular Filt Rate >60 [facility] Comment:Chronic Kidney Disea se: Estimated GFR < 60 mL/min/1.87d5Pmgnlq Kidney Disease: Estimated GFR < 15 mL/min/1.73m2 Glucose Fasting 97 60 - 99 mg/dL [facility] Calcium 9.5 8.4 - 10.2 mg/dL [facility] Bilirubin, Total 0.6 0.0 - 1.0 mg/dL [facility] Aspartate Amino Transferase 34(H) 5 - 31 U/L [facility] Alanine Aminotransferase 26 0 - 31 U/L [facility] Total Protein 7.2 6.5 - 8.0 g/dL [facility] Albumin Level 4.2 3.5 - 5.0 g/dL [facility] Alkaline Phosphatase 88 39 - 117 U/L [facility] 03/24/2025 10:3 0 AM EDT 03/24/2025 2:37 PM EDT us Generic External Data Provider LAB BLOOD ORDERAB LES Final Result [facility] [address] [place] [phone] * (ABNORMAL) CBC auto differential (03/24/2025 10:30 AM EDT) White Blood Count 4.0(L) 4.8 - 10.8 X10*3/uL [facility] Red Blood Count 4.09(L) 4.20 - 5.50 X10*6/uL [facility] Hemoglobin 12.7 12.0 - 16.0 g/dl [facility] Hematocrit 38.3 37.0 - 47.0 % [facility] Mean Corpuscular Volume 93.6 80.0 - 98.0 fL [facility] Mean Corpuscular Hemoglobin 31.1 27.0 - 33.0 pg [facility] Mean Corpuscular HGB Conc 33.2 31.0 - 35.0 g/dl [facility] Red Cell Distribution Width 12.2 11.0 - 16.0 % [facility] Platelet Count 249 160 - 400 X10*3/uL [facility] Mean Platelet Volume 10.8 9.4 - 12.3 fL [facility] Neutrophils Percent Auto 46.1 45 - 73 % [facility] Imm Gran Pct Auto 0.2 0.0 - 0.4 % [facility] Lymphocytes Percent Auto 41.5(H) 20 - 40 % [facility] Monocytes Percent Auto 8.5 2 - 11 % [facility] Eosinophils Percent Auto 3.0 0 - 4 % [facility] Basophils Percent Auto 0.7 0 - 2 % [facility] NRBC Pct Auto 0.0 0.0 - 0.2 /100WBC [facility] Neutrophils Absolute Auto 1.9(L) 2.0 - 8.3 x10*3/uL [facility] Imm Gran Abs Auto 0.01 0.00 - 0.03 X10*3/uL [facility] Lymphocytes Absolute Auto 1.7 1.2 - 4.9 X10*3/uL [facility] Monocytes Absolute Auto 0.3 0.1 - 1.2 X10*3/uL [facility] Eosinophils Absolute Auto 0.1 0.0 - 0.4 X10*3/uL [facility] Basophils Absolute Auto 0.0 0.0 - 0.2 X10*3/uL [facility] NRBC Abs Auto 0.000 0.0 - 0.012 X10*3/uL [facility] 03/24/2025 10:3 0 AM EDT 03/24/2025 2:37 PM EDT us Generic External Data Provider LAB BLOOD ORDERAB LES Final Result [facility] [address] [place] [phone] documented in this encounter Visit Diagnoses Not on filedocumented in this encounter Additional Health Concerns Assessment Noted Time PHQ-9 Depression Total Score: 8 05/25/20 24 8:54 AM EDT documented as of this encounter Care Teams Shop Girl Relationship Specialty Start Date End Date Morgan Curran MD [address] [place] [phone] PCP - General Internal Medicine 08/18/24 documented as of this encounter
--- OUTSIDE RECORDS SUMMARY | 2025-03-25 15:36 | XMS_ITS | Clinical Summary ---
Author Organization [employer] Address [address] [place] [address] Care Team Providers Care Congressional Representative Name Role Phone Morgan Curran MD Primary Care Prov ider Allergies Active Allergy Reactions Criticality Noted Date Comments Amoxicillin 08/21/2013 Other reaction(s): Itching,SOB Aspirin Swelling 07/14/2012 Glutaral 08/04/2010 Other reaction(s): Avoid Sulfa, Dapsone, Nitrofu Ibuprofen 08/04/2010 Other reaction(s): difficulty breathing Medications PARoxetine (Paxil) 20 MG tabletIndications :Anxiety Take 1 tablet (20 mg) by mouth in the morning. 90 tablet 1 3 Active topiramate (Topamax) 25 MG tablet TAKE ONE TABLET BY MOUTH EVERY TWELVE HOURS 180 tablet 1 3 Active simethicone (Mylicon) 125 MG chewable tablet CHEW ONE TABLET THREE OR FOUR TIMES DAILY DAILY NEEDED 4 Active albuterol (2.5 MG/3ML) 0.083% nebulizer solutionIndicatio ns:Moderate persistent asthma, unspecified whether complicated INHALE ONE AMPULE USING A NEBULIZER FOUR TIMES DAILY NEEDED 90 mL 3 4 Active Arnuity Ellipta 100 MCG/ACT inhaler INHALE ONE PUFF EVERY MORNING, RINSE MOUTH AFTER USE 30 each 5 4 Active Blood Pressure kit 1 Units Once per day. 1 kit 4 Active esomeprazole (NexIUM) [address] capsule Take 1 capsule (20 mg) by mouth before breakfast. Do not open capsule. 30 capsule 11 09/16/19 Active fluticasone (Flonase) 50 MCG/ACT nasal spray Administer 1-2 sprays into each nostril Once per day. Shake gently. Before first use, prime pump. After use, clean tip and replace cap. 16 g 5 11/12/19 Active hydroCHLOROthiazi de 12.5 MG tabletIndications :Primary hypertension Take 1 tablet (12.5 mg) by mouth Once per day. 30 tablet 5 11/21/19 Active loratadine (Claritin) 10 MG tabletIndications :Allergic rhinitis, unspecified seasonality, unspecified trigger TAKE ONE TABLET BY MOUTH EVERY DAY FOR ALLERGIES 90 tablet 1 5 Active Acetaminophen Extra Strength 500 MG tabletIndications :Spasm of cervical paraspinous muscle TAKE ONE TABLET EVERY 6 HOURS NEEDED FOR PAIN 50 tablet 3 5 Active albuterol (Ventolin HFA) 108 (90 Base) MCG/ACT inhalerIndication s:Moderate persistent asthma, unspecified whether complicated INHALE TWO PUFFS EVERY 4 HOURS NEEDED FOR WHEEZING 18 g 5 Active montelukast (Singulair) 10 MG tablet Take 1 tablet (10 mg) by mouth at bedtime. 90 tablet 5 12/24/19 Active amLODIPine (Norvasc) 5 MG tablet Take 1 tablet (5 mg) by mouth Once per day. 90 tablet 3 5 12/24/19 Active hydrOXYzine HCl (Atarax) 25 MG tabletIndications :Mixed anxiety and depressive disorder TAKE ONE TABLET BY MOUTH EVERY EIGHT HOURS NEEDED FOR ANXIETY 90 tablet 3 5 Active levothyroxine (Synthroid) 88 MCG tabletIndications :Hypothyroidism, unspecified type Take 1 tablet (88 mcg) by mouth before breakfast. 90 tablet 1 5 02/20/20 26 Active linaCLOtide (Linzess) 145 MCG capsule Take 1 capsule (145 mcg) by mouth before breakfast. Do not crush or chew. 90 capsule 3 5 02/24/20 Active clonazePAM (KlonoPIN) 1 MG tabletIndications :Mixed anxiety and depressive disorder Take 1 tablet (1 mg) by mouth if needed in the morning and at bedtime for anxiety. 56 tablet 5 04/20/20 25 Active Active Problems Problem Noted Date Diagnosed [...] able. Bipolar affective disorder in remission 03/17/20 24 Assessment & Plan (03/17/2024 10:26 AM EDT): [...] Center 09/23/2023 9:45 AM KAMARI Hogan MEDICINE [facility] 09/23/2023 1:00 PM Nargis Miner PharmD [facility] 10/14/2023 10:00 AM Ashlee Meza MD [facility] Assessment & Plan (03/15/2023 9:20 AM EDT): [...] type B viral hepatitis 05/13/2012 Deficiency of kqxgmpf-3-qqugpnwco dehydrogenase 05/13/2012 Mixed anxiety and depressive disorder [...] Date Type Department Care Team Description 03/24/2025 Orders Only GENERIC EXTERNAL DATA DEPARTMENT Provider, Generic External Data 03/24/2025 Telephone [facility] [address] [place] [address] Morgan Curran MD Change PCP 02/25/2025 Refill [facility] [address] [place] [address] Ashlee Meza MD 02/23/2025 2:30 PM EDT Telemedicine [facility] [address] [place] [address] Morgan Curran MD Left thyroid nodule (Primary Dx); Mixed anxiety and depressive disorder; Primary hypertension; Hypothyroidism, unspecified type; Pelvic pressure in female 02/23/2025 Travel 02/19/2025 Orders Only [facility] [address] [place] [address] Sonya Isaacs ANP Hypothyroidism, unspecified type (Primary Dx) 02/19/2025 Results Follow-Up [facility] [address] [place], [place] [phone] Sonya Isaacs ANP TSH W/Reflex to FT4 02/19/2025 Orders Only [facility] [address] [place] [address] Morgan Curran MD 01/19/2025 Refill [facility] [address] [place] [address] Morgan Curran MD Hypothyroidism, unspecified type 01/19/2025 Telephone [facility] [address] [place] [address] Morgan Curran MD Med Refill 12/29/2024 Results Follow-Up [facility] [address] [place] [address] Tonya Serrato, RN MR Brain w/o Contrast 12/29/2024 Orders Only [facility] [address] [place] [address] Ebenezer Acuña MD Unilateral subjective nonpulsatile tinnitus without hearing loss, otoscopic finding, neurologic deficit, or head trauma (Primary Dx) 12/27/2024 Refill [facility] [address] [place] [address] Ashlee Meza MD Mixed anxiety and depressive disorder 12/24/2024 Refill [facility] [address] [place] [address] Marbella Love RN Mixed anxiety and depressive disorder 12/24/2024 Telephone [facility] [address] [place] [address] Morgan Curran MD 12/23/2024 11:30 AM EDT Telemedicine [facility] [address] [place] [address] Morgan Curran MD Acquired hypothyroidism (Primary Dx); [...] 03/15/2021, 02/21/2021, 01/12/2021 Influenza Vaccine (#1) 2025 4, 07/01/2022, 05/05/2020, Additional history exists Alcohol/Substance Use [...] Screening 03/17/2029 HPV/Cotest 03/17/2029 03/17/2024 Lipid Panel 03/24/2030 03/24/2025, 07/29, 01/17/2024, Additional history exists RSV Patients and Patients Aged 60 years or older (1 - 1-dose 75+ series) 2044 Hepatitis A Vaccines Completed 01/13/2018, 01/19/20 HIV Screening Completed 10/03/2022, 080 03/2022, 11/09/2021, Additional history exists Hepatitis C [...] Date/Time Associated Diagnosis Comments T4, FREE Routine 03/24/2025 10:30 AM EDT LIPID PANEL, STANDARD Routine 03/24/2025 10:30 AM EDT HEPATIC FUNCTION PANEL Routine 03/24/2025 10:30 AM EDT COMPREHENSIVE METABOLIC PANEL, FASTING Routine 03/24/2025 10:30 AM EDT CBC WITH AUTO DIFFERENTIAL Routine 03/24/2025 10:30 AM EDT TSH W/REFLEX TO FT4 Routine 03/24/2025 1 0:30 AM EDT Hypothyroidism, unspecified type T4, FREE Routine 02/19/2025 10:48 AM EDT TSH W/REFLEX TO FT4 Routine 02/19/2025 1 0:48 AM EDT Acquired hypothyroidism MR BRAIN WO CONTRAST Routine 12/29/2024 10:33 AM EDT POCT GLYCATED HEMOGLOBIN, TOTAL Routine 11/20/2024 3:31 PM EDT Deficiency of pnbjogb-0-jlbqwmilf dehydrogenase THINPREP IMAGING PAP AND HPV MRNA E6/E7 Routine 03/17/2024 10:00 AM EDT BI MAMMOGRAM SCREENING TOMOSYNTHESIS BILATERAL Routine 01/21/2024 11:36 AM EDT HEPATITIS C ANTIBODY Routine 10/03/2022 6:48 AM EST Hypothyroidism, unspecified type HIV ANTIBODY/ANTIGEN ([place] D[facility]) Routine 10/03/2022 6:48 AM EST Hypothyroidism, unspecified type HM COLONOSCOPY Routine 09/20/2020 from Last 3 Months or Most Recently Relevant to Health Maintenance Results * (ABNORMAL) Comprehensive Metabolic Panel, Fasting (03/24/2025 10:30 AM EDT) Sodium 139 135 - 145 mmol/L [facility] Potassium 4.3 3.3 - 5.1 mmol/L [facility] Chloride 109(H) 96 - 108 mmol/L [facility] Carbon Dioxide 23 22 - 29 mmol/L [facility] Anion Gap 11(L) 12 - 20 [facility] Urea Nitrogen (BUN) 13 9 - 16 mg/dL [facility] Creatinine, Serum 0.85 0.5 - 1.4 mg/dL [facility] Estimated Glomerular Filt Rate >60 [facility] Comment:Chronic Kidney Disea se: Estimated GFR < 60 mL/min/[id number] Kidney Disease: Estimated GFR < 15 mL/min/1.73m2 Glucose Fasting 97 60 - 99 mg/dL [facility] Calcium 9.5 8.4 - 10.2 mg/dL [facility] Bilirubin, Total 0.6 0.0 - 1.0 mg/dL [facility] Aspartate Amino Transferase 34(H) 5 - 31 U/L [facility] Alanine Aminotransferase 26 0 - 31 U/L [facility] Total Protein 7.2 6.5 - 8.0 g/dL [facility] Albumin Level 4.2 3.5 - 5.0 g/dL [facility] Alkaline Phosphatase 88 39 - 117 U/L [facility] 03/24/2025 10:3 0 AM EDT 03/24/2025 2:37 PM EDT us Generic External Data Provider LAB BLOOD ORDERAB LES Final Result [facility] [address] [place] [phone] * (ABNORMAL) TSH W/Reflex to FT4 (03/24/2025 10:30 AM EDT) Only the most recent of2 resultswithin the time period is included. TSH reflex Free T4 0.09(L) 0.32 - 4.0 uIU/mL [facility] Blood Venous blood specimen / Unknown 03/24/2025 10:30 AM EDT 03/24/2025 2:37 PM EDT us Sonya Isaacs [facility] LAB BLOOD ORDERABLES Final Resul t [facility] [address] [place] [address] [phone] * (ABNORMAL) CBC auto differential (03/24/2025 10:30 AM EDT) White Blood Count 4.0(L) 4.8 - 10.8 X10*3/uL [facility] Red Blood Count 4.09(L) 4.20 - 5.50 X10*6/uL [facility] Hemoglobin 12.7 12.0 - 16.0 g/dl [facility] Hematocrit 38.3 37.0 - 47.0 % [facility] Mean Corpuscular Volume 93.6 80.0 - 98.0 fL [facility] Mean Corpuscular Hemoglobin 31.1 27.0 - 33.0 pg [facility] Mean Corpuscular HGB Conc 33.2 31.0 - 35.0 g/dl [facility] Red Cell Distribution Width 12.2 11.0 - 16.0 % [facility] Platelet Count 249 160 - 400 X10*3/uL [facility] Mean Platelet Volume 10.8 9.4 - 12.3 fL [facility] Neutrophils Percent Auto 46.1 45 - 73 % [facility] Imm Gran Pct Auto 0.2 0.0 - 0.4 % [facility] Lymphocytes Percent Auto 41.5(H) 20 - 40 % [facility] Monocytes Percent Auto 8.5 2 - 11 % [facility] Eosinophils Percent Auto 3.0 0 - 4 % [facility] Basophils Percent Auto 0.7 0 - 2 % [facility] NRBC Pct Auto 0.0 0.0 - 0.2 /100WBC [facility] Neutrophils Absolute Auto 1.9(L) 2.0 - 8.3 x10*3/uL [facility] Imm Gran Abs Auto 0.01 0.00 - 0.03 X10*3/uL [facility] Lymphocytes Absolute Auto 1.7 1.2 - 4.9 X10*3/uL [facility] Monocytes Absolute Auto 0.3 0.1 - 1.2 X10*3/uL [facility] Eosinophils Absolute Auto 0.1 0.0 - 0.4 X10*3/uL [facility] Basophils Absolute Auto 0.0 0.0 - 0.2 X10*3/uL [facility] NRBC Abs Auto 0.000 0.0 - 0.012 X10*3/uL [facility] 03/24/2025 10:3 0 AM EDT 03/24/2025 2:37 PM EDT Generic External Data Provider LAB BLOOD ORDERAB LES Final Result Performing Organization Address [facility] de Phone Number [facility] [address] [place] [phone] * T4, Free (03/24/2025 10:30 AM EDT) Only the most recent of2 resultswithin the time period is included. Free T4 (Free Thyroxine) 1.44 0.71 - 1.85 ng/dL [facility] 03/24/2025 10:3 0 AM EDT 03/24/2025 2:37 PM EDT [facility]a [facility] LAB BLOOD ORDERABLES Final Resul t Performing Organization Address [facility] de Phone Number [facility] [address] [place] [phone] * Hepatic Function Panel (03/24/2025 10:30 AM EDT) Bilirubin, Direct 0.2 0.0 - 0.5 mg/dL [facility] 03/24/2025 10:3 0 AM EDT 03/24/2025 2:37 PM EDT Generic External Data Provider LAB BLOOD ORDERAB LES Final Result Performing Organization Address [facility] Co de Phone Number [facility] [address] [place] [phone] * (ABNORMAL) Lipid Panel, Standard (03/24/2025 10:30 AM EDT) Triglycerides 98 <150 mg/dL [facility] Comment:Desirable Triglyceri de: less than 150 mg/dLBorderline High Triglyceride 150-199 mg/dLHigh Triglyceride: 200-499 mg/dLVery High Triglyceride: greater than or equal to 5OO mg/dL Cholesterol 178 <200 mg/dL [facility] Comment:Desirable Cholestero l: less than 200 mg/dLBorderline High Cholesterol: 200-239 mg/dLHigh Cholesterol: greater than 239 mg/dL LDL Cholesterol Calculated 110(H) <100 mg/dL [facility] Comment:Desirable LDL: less than 100 mg/dLNear Optimal/Above Optimal LDL: 110- 129 mg/dLBorderline High LDL: 130-159 mg/dLHigh LDL: 160-189 mg/dLVery High LDL: greater than or equal to 190 mg/dL HDL Cholesterol 49 >40 mg/dL [facility] Comment:Desirable HDL: great er than 40 mg/dL Note: This HDL assay may give artificially low results in patients with liver disease. 03/24/2025 10:3 0 AM EDT 03/24/2025 2:37 PM EDT us Generic External Data Provider LAB BLOOD ORDERAB LES Final Result Performing Organization Address [facility]/ZIP Co de Phone Number [facility] [address] [place] [phone] * MR Brain w/o Contrast (12/29/2024 10:33 AM EDT) Anatomical Region Laterality Modality Brain Magnetic Resonan ce 12/29/2024 10:3 3 AM EDT Narrative 12/29/2024 11:49 AM EDT [address] [address] Magnetic Resonance Report Signed Patient: Abilio Olivares MR#: [id number] 73 : 1970 Acct:[id number] Age/Sex: 54 / F ADM Date: 12/29/24 Loc: HO.MRI Attending Dr: Ebenezer Acuña MD Ordering Physician: Ebenezer Acuña MD Date of Service: 12/29/24 Procedure(s): MR head/brain wo con Accession Number(s): [id number] cc: Ebenezer Acuña MD; Morgan Curran MD [...] 12/29/24 1146 DD/ 1033 TD/TT: 12/29/24 1104 Corporate Risk Analyst: Procedure Note Donotuseinterpreter, Image - 12/29/2024 [place] [address] Magnetic Resonance Report Signed Patient: Abilio OlivaresMR#: [id number] 73 : 1970Acct:[id number] Age/Sex: 54 / FADM Date: 12/29/24 Loc: HO.MRI Attending Dr: Ebenezer Acuña MD Ordering Physician: Ebenezer Acuña MD Date of Service: 12/29/24 Procedure(s): MR head/brain wo con Accession Number(s): [id number] cc: Ebenezer Acuña MD; Morgan Curran MD [...] 12/29/24 1146 DD/ 1033 TD/TT: 12/29/24 1104 Corporate Risk Analyst: Ebenezer Acuña MD IMG MRI PROCEDURES Final Re sult * POCT HGB A1C (11/20/2024 3:31 PM EDT) Pathologist [facility] Hemoglobin A1C 5.9 4.0 - 6.0 % QC Media Lot # [id number] Lot# Expiration Date ,524 Blood 11/20/2024 3:31 PM EDT Ebenezer Acuña MD POINT OF CARE TEST ENTER/ED IT ORDERABLES Final Result * ThinPrep Imaging Pap and HPV mRNA E6/E7 (03/17/2024 10:00 AM EDT) Pathologist [facility] HPV nRNA E6/E7 Not Detected Not Detected [facility] Comment:Methodology: Transcr iption-Mediated AmplificationThis assay detects E6/E7 viral messenger RNA (mRNA) from 14high-risk HPV types (16,18,31,33,35,39,45,51,52,56,58,59,66,68).Cervical sources are required for HPV testing.If a vaginal source from a patient who has had atotal hysterectomy with removal of cervix wassubmitted, please contact the testing laboratoryfor alternative testing options.For additional information, please refer tohttp://education.[employer]/faq/ALR084e3(This link if provided for information/educational purposes only.)THIS TEST WAS PERFORMED AT:[facility] [place] [phone] ALBERTS MD SOURCE: SEE NOTE [facility] Comment:None given Report Status: TNP [facility] Clinical Information: SEE NOTE [facility] Comment:None given LMP: SEE NOTE [facility] Comment:NONE GIVEN Prev. PAP: SEE NOTE [facility] Comment:NONE GIVEN Prev. BX: SEE NOTE [facility] Comment:NONE GIVEN Statement Of Adequacy: SEE NOTE [facility] Comment:SATISFACTORY FOR JUDSON MONTES General Categorization: [facility] Interpretation/Result: SEE NOTE [facility] Comment:Cytology Results: Ne gative for intraepitheliallesion or malignancy.Atrophic pattern; predominantly parabasal cells Cytology Comment SEE NOTE [facility] Comment:This Pap test has be en evaluated with computerassisted technology. Garnett Feeder: SEE NOTE [facility] Comment:DMM, CT(ASCP)CT scre ening location: [place] [address] Review Garnett Feeder: [facility] Pathologist [facility] PAP Infection [facility] See Note SEE NOTE [facility] Comment:EXPLANATORY NOTE:The Pap is a [...] AM EDT 03/17/2024 2:30 PM EDT Narrative [facility] - 03/20/2024 2:55 PM EDT SEE SCANNED RESULTS IN EMR us Ashlee Meza MD LAB PATHOLOGY ORDERABLES Erika rich Result [facility] [address] [place] [phone] * BI Mammogram Screening Tomosynthesis Bilateral (01/21/2024 11:36 AM EDT) Anatomical Region Laterality Modality Breast Bilateral Mammography 01/21/2024 11:3 6 AM EDT Narrative 02/19/2024 11:23 PM EDT [facility] [address] [place] [address] Mammography Report Signed Patient: Abilio Olivares MR#: [id number] 73 : 1970 Acct:[id number] Age/Sex: 53 / F ADM Date: 01/21/24 Loc: [facility] Attending Dr: Ashlee Meza MD Ordering Physician: Ashlee Meza MD Results: 2Beni gn Findings Date of Service: 01/21/24 Follow Up: 1 Year From Orig inal Mammogram Procedure(s): MM tomosynthesis screening BI Accession Number(s): [id number] cc: Ashlee Meza MD EXAMINATION: MM SCREENING [...] in OV> 02/19/24 2319 DD/ 1136 TD/TT: Corporate Risk Analyst: Procedure Note Donotuseinterpreter, Image - 02/19/2024 [facility] [address] [place], [place] [address] Mammography Report Signed Patient: Abilio OlivaresMR#: [id number] 73 : 1970Acct:[id number] Age/Sex: 53 / FADM Date: 01/21/24 Loc: HO.MAMMO Attending Dr: Ashlee Meza MD Ordering Physician: Ashlee Meza MDResults: 2Beni gn Findings Date of Service: 01/21/24Follow Up: 1 Year From Orig ina Mammogram Procedure(s): MM tomosynthesis screening BI Accession Number(s): [id number] cc: Ashlee Meza MD EXAMINATION: MM SCREENING [...] in OV> 02/19/24 2319 DD/ 1136 TD/TT: Corporate Risk Analyst: Ashlee Meza MD IMG BI PROCEDURES Edited Resu lt - Final * Hepatitis C Ab (10/03/2022 6:48 AM EST) Hepatitis C Antibody Nonreactive Nonreactive [facility] Comment:Antibodies to HCV no t detected; does not exclude early acuteHCV infection. 10/03/2022 6:48 AM EST 10/03/2022 6:48 AM EST [facility] External Provider LAB BLO OD ORDERABLES Final Result [facility] [address] [place] [phone] [phone] * HIV Ab/Ag ([place]) (10/03/2022 6:48 AM EST) HIV AB/AG Nonreactive Nonreactive [facility] Comment:HIV-1 p24 Ag and/or HIV-1/HIV-2 Ab not detected.A test result that is nonreactive does not exclude thepossibility of exposure to or infection with HIV-1 and/orHIV-2. Nonreactive results in this assay for individualswith prior exposure to HIV-1 and/or HIV-2 may be due toantigen and antibody levels that are below the limit ofdetection of this assay.The [employer] Tra[employer] HIV Ag/Ab Combo assay result andsupplemental assay results should be interpreted inconjunction with the patient's clinical presentation,history and other laboratory results. If the results areinconsistent with clinical evidence, additional testing issuggested to confirm the result. 10/03/2022 6:48 AM EST 10/03/2022 6:48 AM EST [facility] External Provider LAB BLO OD ORDERABLES Final Result Performing Organization Address [facility] Co de Phone Number [facility] [address] [place] [address] [phone] * Hm Colonoscopy (09/20/2020) Colonoscopy Normal Normal Narrative Kaia Miranda - 09/20/2020 Recommended 5 year follow up Historical Provider HEALTH MAINTENANCE Edited Result - Final from Last 3 Months or Most Recently Relevant to Health Maintenance [place] [address] [place] [address] [employer] Care Teams Congressional Representative Relationship Specialty Start Date End Date Morgan Curran MD [address] [place] [phone] PCP - General Internal Medicine 08/18/24
--- OUTSIDE RECORDS SUMMARY | 2025-03-25 15:36 | XMS_ITS | Encounter Summary ---
Author Organization [employer] [facility] Address [address] [facility] [address] [place] [address] Care Team Providers Care Laborer Chemical Processing Name Role Phone Ashlee Meza MD Primary Care Provider [phone] Morgan Curran MD Primary Care Prov ider Reason for Visit * Reason Comments Med Refill Encounter Details Date Type Department Care Team ([facility] st Contact Info) Description 09/14/[address] [facility] [address] [place] [address] Cornell Bucio FNP Anxiety (Primary Dx) Social [...] unspecified documented in this encounter Care Teams Laborer Chemical Processing Relationship Specialty Start Date End Date Ashlee Meza MD [address] [place] [address] PCP - General Family Medicine 03/28/20 08/17/24 Morgan Curran MD [address] [place] [phone] PCP - General Internal Medicine 08/18/24 documented as of this encounter
--- OUTSIDE RECORDS SUMMARY | 2025-03-25 15:36 | XMS_ITS | Encounter Summary ---
Author Organization [employer] Address [address] [place] [address] Care Team Providers Care Water Filter Cleaner Name Role Phone Morgan Curran MD Primary Care Prov ider Reason for Visit * Reason Onset Date Comments Nurse Triage 09/15/2024 Encounter Details Date Type Department Care Team (Late st Contact Info) Description 09/15/2024 Telephone [facility] MEDICINE [address] [place] [address] Morgan Curran MD [address] [place] [address] Nurse Triage Social History Tobacco Use Types [...] Patient called back, requesting an appointment, given [facility] appt tomorrow. Future Appointments Date Time Provider Department Center 09/16/2024 2:20 PM [facility] SAME DAY CARE [facility] Insurance verified as active per Real Time Eligibility in [facility]. * Telephone Encounter - Farrah Valdivia RN [...] documented as of this encounter Care Teams Water Filter Cleaner Relationship Specialty Start Date End Date Morgan Curran MD [address] [place] [phone] PCP - General Internal Medicine 08/18/24 documented as of this encounter
--- OUTSIDE RECORDS SUMMARY | 2025-03-25 15:36 | XMS_ITS | Encounter Summary ---
Author Organization [employer] Address 75 [facility] 7t [place] [address] Care Team Providers Care Benefits Advisor Name Role Phone Ashlee Meza MD Primary Care Provider [phone] Morgan Curran MD Primary Care Prov ider Reason for Visit * Reason Comments Med Refill Encounter Details Date Type Department Care Team ([facility] st Contact Info) Description 03/12/2024 Refill [facility] MED & PEDS 505 [place] [address] Ashlee Meza MD 505 [place] [address] Social History Tobacco Use Types Packs/Day Years [...] documented as of this encounter Care Teams Benefits Advisor Relationship Specialty Start Date End Date Ashlee Meza MD [address] [place] [address] PCP - General Family Medicine 03/28/20 08/17/24 Morgan Curran MD [address] [place] [address] PCP - General Internal Medicine 08/18/24 documented as of this encounter
--- OUTSIDE RECORDS SUMMARY | 2025-03-25 15:36 | XMS_ITS | Encounter Summary ---
Author Organization [employer] Address 75 [facility] 7 [place] [address] Care Team Providers Care Windows Phone Developer Name Role Phone Morgan Curran MD Primary Care Prov ider Encounter Details Date Type Department Care Team ([facility] st Contact Info) Description 12/03/2024 Orders Only [facility] CHC MED & PEDS 505 [place], [place] [phone] Ebenezer Acuña MD 505 [place] [address] Unilateral subjective nonpulsatile tinnitus without hearing loss, [...] AM EDT Narrative 12/29/2024 11:49 AM EDT [place] [address] Magnetic Resonance Report Signed Patient: Ashley Olivares MR#: [id number] : 1970 Acct:[id number] Age/Sex: 54 / F ADM Date: 12/29/24 Loc: HO.MRI Attending Dr: Ebenezer Acuña MD Ordering Physician: Ebenezer Acuña MD Date of Service: 12/29/24 Procedure(s): MR head/brain wo con Accession Number(s): [id number] cc: Ebenezer Acuña MD; Morgan Curran MD [...] 12/29/24 1146 DD/ 1033 TD/TT: 12/29/24 1104 Plant Operator: Procedure Note Donotuseinterpreter, Image - 12/29/[address] [address] Magnetic Resonance Report Signed Patient: Ashley OlivaresMR#: [id number] : 1970Acct:[id number] Age/Sex: 54 / FADM Date: 12/29/24 Loc: HO.MRI Attending Dr: Ebenezer Acuña MD Ordering Physician: Ebenezer Acuña MD Date of Service: 12/29/24 Procedure(s): MR head/brain wo con Accession Number(s): [id number] cc: Ebenezer Acuña MD; Morgan Curran MD [...] 12/29/24 1146 DD/ 1033 TD/TT: 12/29/24 1104 Plant Operator: us Ebenezer Acuña MD IM MRI PROCEDURES Final Re sult documented in this encounter Visit Diagnoses Diagnosis Unilateral subjective nonpulsatile tinnitus without hearing loss, otoscopic finding, neurologic deficit, or head trauma- Primary documented in this encounter Additional Health Concerns Assessment Noted Time PHQ-9 Depression Total Score: 8 05/25/20 24 8:54 AM EDT documented as of this encounter Care Teams Windows Phone Developer Relationship Specialty Start Date End Date Morgan Curran MD [address] [place] [address] PCP - General Internal Medicine 08/18/24 documented as of this encounter
--- OUTSIDE RECORDS SUMMARY | 2025-03-25 15:36 | XMS_ITS | Encounter Summary ---
Author Organization [employer] [facility] Address [address] [place] [address] 7t [place] [address] Care Team Providers Care Senior Clinical Data Coordinator Name Role Phone Ashlee Meza MD Primary Care Provider [phone] Morgan Curran MD Primary Care Prov ider Reason for Visit * Reason Onset Date Comments triage 12/04/2022 Encounter Details Date Type Department Care Team ([facility] st Contact Info) Description 12/04/2022 Telephone [facility] CHC MED & PEDS 505 [place], [place] [phone] Ashlee Meza MD 505 [place], [place] [phone] triage Social History Tobacco Use Types Packs/Day [...] 12/04/2022 11:13 AM EDT Triage call with [employer] Tool Operator ID [id number] Pt reports for two days now, itchy [...] as of this encounter Care Teams Senior Clinical Data Coordinator Relationship Specialty Start Date End Date Ashlee Meza MD [address] [place] [address] PCP - General Family Medicine 03/28/20 08/17/24 Morgan Curran MD [address] [place] [address] PCP - General Internal Medicine 08/18/24 documented as of this encounter
--- OUTSIDE RECORDS SUMMARY | 2025-03-25 15:37 | XMS_ITS | Encounter Summary ---
Author Organization [employer] Address 75 [facility] 7t [place] [address] Care Team Providers Care Seat Trimmer Name Role Phone Ashlee Meza MD Primary Care Provider Morgan Curran MD Primary Care Prov ider Reason for Visit * Reason Comments Med Refill Encounter Details Date Type Department Care Team ([facility] Contact Info) Description 05/21/2023 Refill [facility] MED & PEDS [address] [place] [address] Ashlee Meza MD 505 [place] [address] Social History Tobacco Use Types Packs/Day Years [...] documented as of this encounter Care Teams Seat Trimmer Relationship Specialty Start Date End Date Ashlee Meza MD [address] [place] [address] PCP - General Family Medicine 03/28/20 08/17/24 Morgan Curran MD [address] [place] [address] PCP - General Internal Medicine 08/18/24 documented as of this encounter
--- OUTSIDE RECORDS SUMMARY | 2025-03-25 15:37 | XMS_ITS | Encounter Summary ---
Author Organization [employer] Address 75 [facility] 7t [place] [address] Care Team Providers Care Cargo Router Name Role Phone Morgan Curran MD Primary Care Prov ider Reason for Visit * Reason Comments Med Refill Encounter Details Date Type Department Care Team ([facility] st Contact Info) Description 02/25/2025 Refill [facility] CHC MED & PEDS 505 [place] [address] Ashlee Meza MD 505 [place] [address] Social History Tobacco Use Types Packs/Day Years [...] documented as of this encounter Care Teams Cargo Router Relationship Specialty Start Date End Date Morgan Curran MD [address] [place] [address] PCP - General Internal Medicine 08/18/24 documented as of this encounter
--- OUTSIDE RECORDS SUMMARY | 2025-03-25 15:37 | XMS_ITS | Encounter Summary ---
Author Organization [employer] Address 75 [facility] 7t [place] [address] Care Team Providers Care Sausage Canner Name Role Phone Ashlee Meza MD Primary Care Provider [phone] Morgan Curran MD Primary Care Prov ider Reason for Visit * Reason Onset Date Comments Nurse Triage 08/12/2024 Encounter Details Date Type Department Care Team (Late st Contact Info) Description 08/12/2024 Telephone [facility] MEDICINE 230 [place] [address] Ashlee Meza MD 505 [place] [address] Nurse Triage Social History Tobacco Use Types [...] the past 12 months, has t he [employer], gas, oil or water [employer] threatened to shut off services in your [...] 08/12/2024 3:04 PM EST Triage call with [facility] [id number]. Pt reports can speak Tajik. Triage continued in malay at this time. Pt reports frequency , [...] The caller accepted this outcome. Contact pt [phone] documented in this encounter Plan of Treatment Not on file documented as of this encounter Visit Diagnoses Not on filedocumented in this encounter Additional Health Concerns Assessment Noted Time PHQ-9 Depression Total Score: 8 05/25/20 24 8:54 AM EDT documented as of this encounter Care Teams Sausage Canner Relationship Specialty Start Date End Date Ashlee Meza MD [address] [place] [address] PCP - General Family Medicine 03/28/20 08/17/24 Morgan Curran MD 505 [place] [address] PCP - General Internal Medicine 08/18/24 documented as of this encounter
--- OUTSIDE RECORDS SUMMARY | 2025-03-25 15:37 | XMS_ITS | Encounter Summary ---
Author Organization [employer] Address [address] [place] [address] Care Team Providers Care Filter Operator Name Role Phone Morgan Curran MD Primary Care Prov ider Reason for Visit * Reason Onset Date Comments Nurse Triage 09/23/2024 Encounter Details Date Type Department Care Team ([facility] st Contact Info) Description 09/23/2024 Telephone [facility] CHC MED & PEDS 505 [place], [place] [phone] Morgan Curran MD 505 [place] [address] Nurse Triage Social History Tobacco Use Types [...] the past 12 months, has t he [employer], gas, oil or water [employer] threatened to shut off services in your [...] 09/23/2024 2:04 PM EST Triage call with [facility] Blister Pack Operator [place] [id number] Alberto Pt reports abdominal pain, above umbilicus for last few days. Pt reports one episode of diarrhea yesterday but, nothing more. Neg for vomiting, fever or urinary symptoms. Pt reports this pain comes and goes but, is not ending. Pt is not . ASK apt in [facility] today at 320p. Pt agrees with [...] documented as of this encounter Care Teams Filter Operator Relationship Specialty Start Date End Date Morgan Curran MD [address] [place] [address] PCP - General Internal Medicine 08/18/24 documented as of this encounter
--- OUTSIDE RECORDS SUMMARY | 2025-03-25 15:37 | XMS_ITS | Encounter Summary ---
Author Organization [employer] [facility] Address [address] [place] [address] [place] [address] Care Team Providers Care Directory Carrier Name Role Phone Morgan Curran MD Primary Care Prov ider Reason for Referral * Consultation (Routine) - Closed Specialty Diagnoses / Procedures Referred By Contyris schrader Referred To Contact Otolaryngology Diagnoses Unilateral subjective nonpulsatile tinnitus without hearing loss, otoscopic finding, neurologic deficit, or head trauma Ebenezer Aucña MD [address] [place] [address] Phone: tel: fax: [facility] [address] Phone: tel: fax: Referral ID Status Reason Start Date Expiration Date V isits Requested Visits Authorized [id number] Closed Specialty Services Required 12/29/2024 12/29/2025 1 1 Encounter Details Date Type Department Care Team (Late st Contact Info) Description 12/29/2024 Orders Only [facility] CHC MED & PEDS 505 [place] [address] Ebenezer Acuña MD 505 [place] [address] Unilateral subjective nonpulsatile tinnitus without hearing loss, [...] documented as of this encounter Care Teams Directory Carrier Relationship Specialty Start Date End Date Morgan Curran MD [address] [place] [address] PCP - General Internal Medicine 08/18/24 documented as of this encounter
--- OUTSIDE RECORDS SUMMARY | 2025-03-25 15:37 | XMS_ITS | Encounter Summary ---
Author Organization [employer] Address 75 [facility] 7t [place] [address] Care Team Providers Care Paint Roller Winder Name Role Phone Morgan Curran MD Primary Care Prov ider Encounter Details Date Type Department Care Team (Late st Contact Info) Description 02/19/2025 Results Follow-Up [facility] MEDICINE 230 [place], [place] [phone] Sonya Isaacs, ANP [address] [place] [address] TSH W/Reflex to FT4 Social History Tobacco [...] documented as of this encounter Care Teams Paint Roller Winder Relationship Specialty Start Date End Date Morgan Curran MD [address] [place] [address] PCP - General Internal Medicine 08/18/24 documented as of this encounter
--- OUTSIDE RECORDS SUMMARY | 2025-03-25 15:37 | XMS_ITS | Encounter Summary ---
Author Organization [employer] Address [address] [address] Care Team Providers Care Toe Pounder Name Role Phone Morgan Curran MD Primary Care Prov ider Reason for Visit * Reason Onset Date Comments Change PCP 03/24/2025 Encounter Details Date Type Department Care Team ([facility] st Contact Info) Description 03/24/2025 Telephone [facility] CHC MED & PEDS 505 [place], [place] [phone] Morgan Curran MD 505 [place] [address] Change PCP Social History Tobacco Use Types [...] documented as of this encounter Care Teams Toe Pounder Relationship Specialty Start Date End Date Morgan Curran MD [address] [place] [address] PCP - General Internal Medicine 08/18/24 documented as of this encounter
--- OUTSIDE RECORDS SUMMARY | 2025-03-25 15:37 | XMS_ITS | Encounter Summary ---
Author Organization [employer] Address [address] [place] [address] Care Team Providers Care Business Unit Controller Name Role Phone Morgan Curran MD Primary Care Prov ider Reason for Visit * Reason Onset Date Comments Nurse Triage 11/20/2024 Encounter Details Date Type Department Care Team (Late st Contact Info) Description 11/20/2024 Telephone [facility] MEDICINE 230 [place] [address] Morgan Curran MD 505 [place] [address] Nurse Triage Social History Tobacco Use Types [...] 11/20/2024 9:34 AM EDT Triage call with [facility] Ovens Supervisor [place] [id number] Pt reports a buzzing sound in left ear started 2 days ago. Pt also has sx of sneezing, eyes irritated, dizziness. Neg for pain or loss of hearing. Sound is constant. This does interfere with normal activities. ASK apt in [facility] @ 240pm 11/20/24. Pt agrees with [...] as of this encounter Care Teams Business Unit Controller Relationship Specialty Start Date End Date Morgan Curran MD [address] [place] [address] PCP - General Internal Medicine 08/18/24 documented as of this encounter
== END 2025-03-25 14:56 | disposition home or self-care (01) ==
LOC: HO.US 14:55
PROVIDERS: PCP Internal Medicine; Visit Provider Internal Medicine
DX: E04.1 Nontoxic single thyroid nodule (principal)
CPT/HCPCS: 76536

== ENCOUNTER → 2025-03-25 14:56 | Outpatient (BNV) | payer MEDICAID, SELFPAY | PROVIDERS: PCP Internal Medicine; Visit Provider Radiology Diagnostic Radiology | DX: E04.1 Nontoxic single thyroid nodule (principal) | CPT/HCPCS: 76536 ==

== ENCOUNTER 2025-04-01 09:16 | Outpatient (REF) | payer MEDICAID, SELFPAY ==
--- OUTSIDE RECORDS SUMMARY | 2025-04-01 09:59 | XMS_ITS | Encounter Summary ---
Author Organization [employer] Address 75 [facility] 7t [place] [address] Care Team Providers Care Title I Teacher Name Role Phone Ashlee Meza MD Primary Care Provider [phone] Morgan Curran MD Primary Care Prov ider Reason for Visit * Reason Comments Med Refill Encounter Details Date Type Department Care Team ([facility] st Contact Info) Description 03/12/2024 Refill [facility] MED & PEDS 505 [place] [address] Ashlee Meaz MD 505 [place] [address] Social History Tobacco Use Types Packs/Day Years [...] as of this encounter Care Teams Title I Teacher Relationship Specialty Start Date End Date Ashlee Meza MD [address] [place] [address] PCP - General Family Medicine 03/28/20 08/17/24 Morgan Curran MD [address] [place] [address] PCP - General Internal Medicine 08/18/24 documented as of this encounter
--- OUTSIDE RECORDS SUMMARY | 2025-04-01 09:59 | XMS_ITS | Encounter Summary ---
Author Organization [facility] Address [address] [facility] 7t [place] [address] Care Team Providers Care Auto Body Estimator Name Role Phone Ashlee Meza MD Primary Care Provider [phone] Morgan Curran MD Primary Care Prov ider Encounter Details Date Type Department Care Team (Late st Contact Info) Description 09/14/2022 Orders Only [facility] [address] [place] [address] Adriana Brock MD [address] [place] [address] Hypothyroidism, unspecified type (Primary Dx) Social History [...] Free T4 1.16 0.32 - 4.0 uIU/mL [facility] 2022 8:28 AM EDT 2022 8:28 AM EDT [facility] External Provider LAB BLO OD ORDERABLES Final Result Performing Organization Address [facility] Co de Phone Number [facility] [address] [place] [phone] * Hepatitis??D Virus (HDV) Antibody, Total (10/03/2022 6:48 AM EST) Hepatitis D Antibody, Total NEGATIVE [facility] Comment:REFERENCE RANGE: NEG ATIVE INTERPRETIVE [...] and its analyticalperformance characteristics have been determinedby [employer]. It has not been cleared orapproved by FDA. This assay has been validatedpursuant to the CLIA regulations and is used forclinical purposes.THIS TEST WAS PERFORMED AT:[employer] [id number] [place] [address]NCIPSKARLEY OROZCO MD,PHD,LYNN 10/03/2022 6:48 AM EST 10/03/2022 6:48 AM EST [facility] External Provider LAB BLO OD ORDERABLES Final Result Performing Organization Address City/[facility]/ZIP Co de Phone Number [facility] [address] [place] [address] [phone] * Hepatitis B Core??Antibody (IgM) (10/03/2022 6:48 AM EST) Pathologist [facility] Hepatitis B Core Antibody IgM NON-REACTI VE NON-REACT KIM [facility] Comment:THIS TEST WAS PERFOR MED AT:[employer] [address] [id number] ALBERTS MD 10/03/2022 6:48 AM EST 10/03/2022 6:48 AM EST [facility] External Provider LAB BLO OD ORDERABLES Final Result Performing Organization Address [facility] Co de Phone Number [facility] [address] [place] [address] [phone] * (ABNORMAL) Hepatitis B Virus DNA, Quantitative, Real-Time PCR (10/03/2022 6:48 AM EST) Pathologist [facility] Hepatitis B Viral DNA Qn - cp 2.83(A) NOT DETECTED Log IU/mL [facility] Comment:This test was perfor med using Real-Time Polymerase ChainReaction.Reportable Range: 10 IU/mL to 1,000,000,000 IU/mL.(1.00 Log IU/mL to 9.00 Log IU/mL).The analytical performance characteristics of this assayhave been determined by [employer]. Themodifications have not been cleared or approved by theA. This assay has been validated pursuant to the CLIAregulations and is used for clinical purposes.THIS TEST WAS PERFORMED AT:[employer] [address] [id number] ALBERTS MD Hepatitis B Viral DNA Qn-IU/mL 683(A) NOT DETECTED IU/mL [facility] 10/03/2022 6:48 AM EST 10/03/2022 6:48 AM EST [facility] External Provider LAB BLO OD ORDERABLES Final Result Performing Organization Address City/[facility] Co de Phone Number [facility] [address] [place] [address] [phone] * (ABNORMAL) Hepatitis B Surface Antigen with Reflex Confirmation (10/03/2022 6:48 AM EST) Hepatitis B Surface Ag Confirmed Pos(A) Negative [facility] Comment:RESULTS OF CALLED TO AND READ BACK BY AT 1126 BY WENCESLAO.Results of HBSAG called to and read back byon 10/05/22 at 1134 by WENCESLAO. 10/03/2022 6:48 AM EST 10/03/2022 6:48 AM EST [facility] External Provider LAB BLO OD ORDERABLES Final Result Performing Organization Address [facility] Co de Phone Number [facility] [address] [place] [address] [phone] * HIV Ab/Ag (ME DPH) (10/03/2022 6:48 AM EST) HIV AB/AG Nonreactive Nonreactive [facility] Comment:HIV-1 p24 Ag and/or HIV-1/HIV-2 Ab not detected.A test result that is nonreactive does not exclude thepossibility of exposure to or infection with HIV-1 and/orHIV-2. Nonreactive results in this assay for individualswith prior exposure to HIV-1 and/or HIV-2 may be due toantigen and antibody levels that are below the limit ofdetection of this assay.The [employer] Production Crew Supervisor HIV Ag/Ab Combo assay result andsupplemental assay results should be interpreted inconjunction with the patient's clinical presentation,history and other laboratory results. If the results areinconsistent with clinical evidence, additional testing issuggested to confirm the result. 10/03/2022 6:48 AM EST 10/03/2022 6:48 AM EST [facility] External Provider LAB BLO OD ORDERABLES Final Result Performing Organization Address [facility] de Phone Number [facility] [address] [place] [phone] * Hepatitis C Ab (10/03/2022 6:48 AM EST) Hepatitis C Antibody Nonreactive Nonreactive [facility] Comment:Antibodies to HCV no t detected; does not exclude early acuteHCV infection. 10/03/2022 6:48 AM EST 10/03/2022 6:48 AM EST [facility] External Provider LAB BLO OD ORDERABLES Final Result Performing Organization Address [facility] [address] [place] [phone] * Hepatitis B Surface Antibody, Qualitative (10/03/2022 6:48 AM EST) ~Hepatitis B Surface Antibody NONREACTIVE Nonreactive [facility] Comment:Nonreactive: < 8.00 mIU/mL 10/03/2022 6:48 AM EST 10/03/2022 6:48 AM EST [facility] External Provider LAB BLO OD ORDERABLES Final Result Performing Organization Address [facility] [address] [place] [phone] * Albumin (10/03/2022 6:48 AM EST) Albumin Level 4.1 3.5 - 5.0 g/dL [facility] 10/03/2022 6:48 AM EST 10/03/2022 6:48 AM EST [facility] External Provider LAB BLO OD ORDERABLES Final Result Performing Organization Address [facility] de Phone Number [facility] [address] [place] [phone] * ALT (10/03/2022 6:48 AM EST) Alanine Aminotransferase 24 0 - 31 U/L [facility] 10/03/2022 6:48 AM EST 10/03/2022 6:48 AM EST [facility] External Provider LAB BLO OD ORDERABLES Final Result Performing Organization Address City/[facility]/ZIP Co de Phone Number [facility] [address] [place] [phone] * AST (10/03/2022 6:48 AM EST) Aspartate Amino Transferase 22 5 - 31 U/L [facility] 10/03/2022 6:48 AM EST 10/03/2022 6:48 AM EST [facility] External Provider LAB BLO OD ORDERABLES Final Result Performing Organization Address [facility]/ZIP Co de Phone Number [facility] [address] [place] [phone] * Bilirubin, Total (10/03/2022 6:48 AM EST) Bilirubin, Total 0.3 0.0 - 1.0 mg/dL [facility] 10/03/2022 6:48 AM EST 10/03/2022 6:48 AM EST [facility] External Provider LAB BLO OD ORDERABLES Final Result Performing Organization Address [facility] Co de Phone Number [facility] [address] [place] [phone] * Glucose, Random (10/03/2022 6:48 AM EST) Glucose 113 60 - 115 mg/dL [facility] 10/03/2022 6:48 AM EST 10/03/2022 6:48 AM EST [facility] External Provider LAB BLO OD ORDERABLES Final Result Performing Organization Address [facility] Co de Phone Number [facility] [address] [place] [phone] * Creatinine, Serum (10/03/2022 6:48 AM EST) Creatinine, Serum 0.86 0.5 - 1.4 mg/dL [facility] Estimated Glomerular Filt Rate >60 [facility] Comment:NOTE: For -Am erican individuals, multiply the result by 1.210.Chronic Kidney Disease: Estimated GFR < 60 mL/min/1.22g9Yohtmw Kidney Disease: Estimated GFR < 15 mL/min/1.73m2 10/03/2022 6:48 AM EST 10/03/2022 6:48 AM EST [facility] External Provider LAB BLO OD ORDERABLES Final Result Performing Organization Address [facility] de Phone Number [facility] [address] [place] [phone] * (ABNORMAL) CBC auto differential (10/03/2022 6:48 AM EST) White Blood Count 4.7(L) 4.8 - 10.8 X10*3/uL [facility] Red Blood Count 4.22 4.20 - 5.50 X10*6/uL [facility] Hemoglobin 12.8 12.0 - 16.0 g/dl [facility] Hematocrit 38.2 37.0 - 47.0 % [facility] Mean Corpuscular Volume 90.5 80.0 - 98.0 fL [facility] Mean Corpuscular Hemoglobin 30.3 27.0 - 33.0 pg [facility] Mean Corpuscular HGB Conc 33.5 31.0 - 35.0 g/dl [facility] Red Cell Distribution Width 12.5 11.0 - 16.0 % [facility] Platelet Count 249 160 - 400 X10*3/uL [facility] Mean Platelet Volume 10.4 9.4 - 12.3 fL [facility] Neutrophils Percent Auto 50.8 45 - 73 % [facility] Imm Gran Pct Auto 0.4 0.0 - 0.4 % [facility] Lymphocytes Percent Auto 38.8 20 - 40 % [facility] Monocytes Percent Auto 6.0 2 - 11 % [facility] Eosinophils Percent Auto 3.4 0 - 4 % [facility] Basophils Percent Auto 0.6 0 - 2 % [facility] NRBC Pct Auto 0.0 0.0 - 0.2 /100WBC [facility] Neutrophils Absolute Auto 2.4 2.0 - 8.3 x10*3/uL [facility] Imm Gran Abs Auto 0.02 0.00 - 0.03 X10*3/uL [facility] Lymphocytes Absolute Auto 1.8 1.2 - 4.9 X10*3/uL [facility] Monocytes Absolute Auto 0.3 0.1 - 1.2 X10*3/uL [facility] Eosinophils Absolute Auto 0.2 0.0 - 0.4 X10*3/uL [facility] Basophils Absolute Auto 0.0 0.0 - 0.2 X10*3/uL [facility] NRBC Abs Auto 0.000 0.0 - 0.012 X10*3/uL [facility] 10/03/2022 6:48 AM EST 10/03/2022 6:48 AM EST us [facility] External Provider LAB BLO OD ORDERABLES Final Result [facility] [address] [place] [phone] documented in this encounter Visit Diagnoses Diagnosis Hypothyroidism, unspecified type- Primary documented in this encounter Care Teams Auto Body Estimator Relationship Specialty Start Date End Date Ashlee Meza MD [address] [place] [address] PCP - General Family Medicine 03/28/20 08/17/24 Morgan Curran MD [address] [place] [address] PCP - General Internal Medicine 08/18/24 documented as of this encounter
--- OUTSIDE RECORDS SUMMARY | 2025-04-01 09:59 | XMS_ITS | Encounter Summary ---
Author Organization [employer] [facility] Address [address] [place] [address] 7t [place] [address] Care Team Providers Care Vice President Of Customer Service Name Role Phone Ashlee Meza MD Primary Care Provider [phone] Morgan Curran MD Primary Care Prov ider Reason for Visit * Reason Onset Date Comments triage 12/04/2022 Encounter Details Date Type Department Care Team ([facility] st Contact Info) Description 12/04/2022 Telephone [facility] MED & PEDS [address] [place], [place] [phone] Ashlee Meza MD [address] [place], [place] [phone] triage Social History Tobacco Use Types Packs/Day [...] 12/04/2022 11:13 AM EDT Triage call with [employer] [place] [id number] Pt reports for two days now, itchy [...] documented as of this encounter Care Teams Vice President Of Customer Service Relationship Specialty Start Date End Date Ashlee Meza MD [address] [place] [address] PCP - General Family Medicine 03/28/20 08/17/24 Morgan Curran MD [address] [place] [phone] PCP - General Internal Medicine 08/18/24 documented as of this encounter
--- OUTSIDE RECORDS SUMMARY | 2025-04-01 09:59 | XMS_ITS | Encounter Summary ---
Author Organization [employer] [facility] Address [address] [facility] 7t [place] [address] Care Team Providers Care Flying Ii Instructor Name Role Phone Ashlee Meza MD Primary Care Provider [phone] Morgan Curran MD Primary Care Prov ider Reason for Visit * Reason Comments Med Refill Encounter Details Date Type Department Care Team ([facility] st Contact Info) Description 09/14/2022 Refill [facility] [address] [place] [address] Cornell Bucio FNP Anxiety (Primary Dx) Social [...] unspecified documented in this encounter Care Teams Flying Ii Instructor Relationship Specialty Start Date End Date Ashlee Meza MD [address] [place] [address] PCP - General Family Medicine 03/28/20 08/17/24 Morgan Curran MD [address] [place] [address] PCP - General Internal Medicine 08/18/24 documented as of this encounter
--- OUTSIDE RECORDS SUMMARY | 2025-04-01 09:59 | XMS_ITS | Encounter Summary ---
Author Organization [employer] Address [address] [place] [address] Care Team Providers Care Belt Cutter Name Role Phone Morgan Curran MD Primary Care Prov ider Reason for Visit * Reason Onset Date Comments Nurse Triage 09/23/2024 Encounter Details Date Type Department Care Team ([facility] st Contact Info) Description 09/23/2024 Telephone [facility] CHC MED & PEDS [address] [place], [place] [phone] Morgan Curran MD [address] [place] [address] Nurse Triage Social History Tobacco Use Types [...] the past 12 months, has t he [employer], gas, oil or water Specle threatened to shut off services in your [...] EST Triage call with [facility] Clinician Oncology [place] [id number] Alberto Pt reports abdominal pain, above umbilicus for last few days. Pt reports one episode of diarrhea yesterday but, nothing more. Neg for vomiting, fever or urinary symptoms. Pt reports this pain comes and goes but, is not ending. Pt is not . ASK apt in [facility] today at 320p. Pt agrees with [...] documented as of this encounter Care Teams Belt Cutter Relationship Specialty Start Date End Date Morgan Curran MD [address] [place] [phone] PCP - General Internal Medicine 08/18/24 documented as of this encounter
--- OUTSIDE RECORDS SUMMARY | 2025-04-01 09:59 | XMS_ITS | Encounter Summary ---
Author Organization [employer] Address [address] [facility] 7t [place] [address] Care Team Providers Care Structural Mill Supervisor Name Role Phone Ashlee Meza MD Primary Care Provider [phone] Morgan Curran MD Primary Care Prov ider Reason for Visit * Reason Comments Med Refill Encounter Details Date Type Department Care Team ([facility] st Contact Info) Description 08/05/2023 Refill [facility] CHC MED & PEDS [address] [place], [place] [phone] Ashlee Meza MD [address] [place] [address] Social History Tobacco Use Types Packs/Day Years [...] documented as of this encounter Care Teams Structural Mill Supervisor Relationship Specialty Start Date End Date Ashlee Meza MD [address] [place] [address] PCP - General Family Medicine 03/28/20 08/17/24 Morgan Curran MD [address] [place] [address] PCP - General Internal Medicine 08/18/24 documented as of this encounter
--- OUTSIDE RECORDS SUMMARY | 2025-04-01 09:59 | XMS_ITS | Encounter Summary ---
Author Organization [employer] Address [address] [facility] 7t [place] [address] Care Team Providers Care Nitriles Lab Technician Name Role Phone Morgan Curran MD Primary Care Prov ider Reason for Visit * Reason Comments Med Refill Encounter Details Date Type Department Care Team ([facility] st Contact Info) Description 02/25/2025 Refill [facility] CHC MED & PEDS [address] [place] [address] Ashlee Meza MD [address] [place] [address] Social History Tobacco Use Types Packs/Day Years [...] documented as of this encounter Care Teams Nitriles Lab Technician Relationship Specialty Start Date End Date Morgan Curran MD [address] [place] [phone] PCP - General Internal Medicine 08/18/24 documented as of this encounter
--- OUTSIDE RECORDS SUMMARY | 2025-04-01 09:59 | XMS_ITS | Encounter Summary ---
Author Organization [employer] Address [address] [facility] 7t [place] [address] Care Team Providers Care Concrete Pump Operator Helper Name Role Phone Morgan Curran MD Primary Care Prov ider Encounter Details Date Type Department Care Team (Late st Contact Info) Description 02/19/2025 Results Follow-Up [facility] [address] [place], [place] [phone] Sonya Isaacs, ANP [address] [place] [address] TSH W/Reflex to FT4 Social History Tobacco [...] documented as of this encounter Care Teams Concrete Pump Operator Helper Relationship Specialty Start Date End Date Morgan Curran MD [address] [place] [phone] PCP - General Internal Medicine 08/18/24 documented as of this encounter
--- OUTSIDE RECORDS SUMMARY | 2025-04-01 09:59 | XMS_ITS | Encounter Summary ---
Author Organization [employer] Address [address] [place] [address] Care Team Providers Care Poultry Scalder Name Role Phone Morgan Curran MD Primary Care Prov ider Reason for Visit * Reason Onset Date Comments Nurse Triage 09/15/2024 Encounter Details Date Type Department Care Team (Late st Contact Info) Description 09/15/2024 Telephone [facility] [address] [place] [address] Morgan Curran MD [address] [place] [address] Nurse Triage Social History Tobacco Use Types [...] Patient called back, requesting an appointment, given [facility] appt tomorrow. Future Appointments Date Time Provider Department Center 09/16/2024 2:20 PM [facility] Insurance verified as active per Real Time Eligibility in [facility]. * Telephone Encounter - Farrah Valdivia [...] documented as of this encounter Care Teams Poultry Scalder Relationship Specialty Start Date End Date Morgan Curran MD [address] [place] [phone] PCP - General Internal Medicine 08/18/24 documented as of this encounter
--- OUTSIDE RECORDS SUMMARY | 2025-04-01 09:59 | XMS_ITS | Clinical Summary ---
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 Mixed anxiety and depressive disorder [...] Encounters Date Type Department Care Team Description 03/30/2025 Refill [facility] [address] [place] [address] Morgan Curran MD Spasm of cervical paraspinous muscle 03/30/2025 Refill [facility] [address] [place] [address] Morgan Curran MD Mixed anxiety and depressive disorder 03/25/2025 Results Follow-Up [facility] [address] [place] [address] Sonya Isaacs ANP TSH W/Reflex to FT4 03/25/2025 Results Follow-Up [facility] [address] [place] [address] Sonya Isaacs ANP T4, Free 03/24/2025 Orders Only GENERIC EXTERNAL DATA DEPARTMENT Provider, Generic External Data 03/24/2025 Telephone [facility] [address] [place] [address] Morgan Curran MD Change PCP 02/25/2025 Refill [facility] [address] [place] [address] Ashlee Meza MD 02/23/2025 2:30 PM EDT Telemedicine [facility] [address] [place] [address] Morgan Curran MD Left thyroid nodule (Primary Dx); Mixed anxiety and depressive disorder; Primary hypertension; Hypothyroidism, unspecified type; Pelvic pressure in female 02/23/2025 Travel 02/19/2025 Orders Only [facility] [address] [place] [address] Sonya Isaacs ANP Hypothyroidism, unspecified type (Primary Dx) 02/19/2025 Results Follow-Up [facility] [address] [place] [address] Sonya Isaacs ANP TSH W/Reflex to FT4 02/19/2025 Orders Only [facility] [address] [place] [address] Morgan Curran MD 01/19/2025 Refill [facility] [address] [place] [address] Morgan Curran MD Hypothyroidism, unspecified type 01/19/2025 Telephone [facility] [address] [place], [place] [phone] Morgan Curran MD Med Refill from Last 3 Months Immunizations Immunization Administration [...] 3-dose series) 1988 COVID-19 Vaccine ( season) 2025 03/15/2021, 02/21/2021, 01/12/2021 Influenza Vaccine (#1) 2025 [...] Name Priority Date/Time Associated Diagnosis Comments US THYROID Routine 03/25/2025 3:13 PM EDT Left thyroid nodule T4, FREE Routine 03/24/2025 10:30 AM EDT [...] 02/19/2025 1 0:48 AM EDT Acquired hypothyroidism POCT GLYCATED HEMOGLOBIN, TOTAL Routine 11/20/2024 3:31 PM EDT Deficiency of eoublyp-1-zhovnvtsk dehydrogenase THINPREP IMAGING PAP AND HPV MRNA [...] Relevant to Health Maintenance Results * US Thyroid (03/25/2025 3:13 PM EDT) Anatomical Region Laterality Modality Head, Neck Ultrasound 03/25/2025 3:13 PM EDT Narrative 03/25/2025 3:43 PM EDT [address] [address] Ultrasound Report Signed Patient: Abilio Olivares MR#: [id number] 74 : 1970 Acct:[id number] Age/Sex: 54 / F ADM Date: 03/25/25 Loc: HO.US Attending Dr: Morgan Huffman MD Ordering Physician: Morgan Curran MD Date of Service: 03/25/25 Procedure(s): US thyroid Accession Number(s): [id number] cc: Morgan Curran MD EXAMINATION: US THYROID HISTORY: left thyroid nodule TECHNIQUE: Real-time grayscale ultrasound imaging was performed and images were reviewed. COMPARISON: Comparison is made with the prior examination dated 06/05/2021. FINDINGS: SIZE: The right thyroid lobe measures 2.5 x 1.1 x 1.0 cm. The left thyroid lobe measures 2.8 x 1.2 x 0.7 cm. The isthmus measures 2 mm. FLOW: Flow to the gland is normal. ECHOGENICITY: The echotexture of the gland is mildly heterogeneous. NODULES: No nodules are identified on the current examination. US/US thyroid IMPRESSION: Unremarkable thyroid ultrasound. The previously seen nodule at the lower pole of the left thyroid lobe is not identified. ACR TI-RADS Guidelines TR1 (0 points): Benign. No follow-up or biopsy required TR2 (2 points): Not Suspicious. No biopsy or follow up indicated TR3 (3 points): Mildly Suspicious. FNA if >= 2.5 cm, Follow if >= 1.5 cm TR4 (4-6 points): Moderately Suspicious. FNA if >= 1.5 cm, Follow if >= 1.0 cm TR5 (>=7 points): Highly Suspicious. FNA if >= 1.0 cm, Follow if >= 0.5 cm Electronically signed by: Moose Mata MD 03/25/2025 03:39 PM EDT Dictated By: Moose Mata MD Signed By: <Electronically signed by Moose Mata MD in OV> 03/25/25 1539 DD/ 1513 TD/TT: 03/25/25 1517 Welding Supervisor: Procedure Note Donotuseinterpreter, Image - 03/25/[address] [address] Ultrasound Report Signed Patient: Abilio OlivaresMR#: [id number] 74 : 1970Acct:[id number] Age/Sex: 54 / FADM Date: 03/25/25 Loc: HO.US Attending Dr: Morgan Huffman MD Ordering Physician: Morgan Curran MD Date of Service: 03/25/25 Procedure(s): US thyroid Accession Number(s): [id number] cc: Morgan Curran MD EXAMINATION: US THYROID HISTORY: left thyroid nodule TECHNIQUE: Real-time grayscale ultrasound imaging was performed and images were reviewed. COMPARISON: Comparison is made with the prior examination dated 06/05/2021. FINDINGS: SIZE: The right thyroid lobe measures 2.5 x 1.1 x 1.0 cm. The left thyroid lobe measures 2.8 x 1.2 x 0.7 cm. The isthmus measures 2 mm. FLOW: Flow to the gland is normal. ECHOGENICITY: The echotexture of the gland is mildly heterogeneous. NODULES: No nodules are identified on the current examination. US/US thyroid IMPRESSION: Unremarkable thyroid ultrasound. The previously seen nodule at the lower pole of the left thyroid lobe is not identified. ACR TI-RADS Guidelines TR1 (0 points): Benign. No follow-up or biopsy required TR2 (2 points): Not Suspicious. No biopsy or follow up indicated TR3 (3 points): Mildly Suspicious. FNA if >= 2.5 cm, Follow if >= 1.5 cm TR4 (4-6 points): Moderately Suspicious. FNA if >= 1.5 cm, Follow if >= 1.0 cm TR5 (>=7 points): Highly Suspicious. FNA if >= 1.0 cm, Follow if >= 0.5 cm Electronically signed by: Moose Mata MD 03/25/2025 03:39 PM EDT Dictated By: Moose Mata MD Signed By: <Electronically signed by Moose Mata MD in OV> 03/25/25 1539 DD/ 1513 TD/TT: 03/25/25 1517 Welding Supervisor: us Morgan Huffman MD IMG US PROCEDURES Final Result * (ABNORMAL) Comprehensive Metabolic Panel, Fasting (03/24/2025 10:30 AM EDT) Sodium 139 135 - 145 mmol/L [facility] Potassium 4.3 3.3 - 5.1 mmol/L [facility] Chloride 109(H) 96 - 108 mmol/L [facility] Carbon Dioxide 23 22 - 29 mmol/L [facility] Anion Gap 11(L) 12 - 20 [facility] Urea Nitrogen (BUN) 13 9 - 16 mg/dL [facility] Creatinine, Serum 0.85 0.5 - 1.4 mg/dL [facility] Estimated Glomerular Filt Rate >60 [facility] Comment:Chronic Kidney Disea se: Estimated GFR < 60 mL/min/1.33i4Bqletq Kidney Disease: Estimated GFR < 15 mL/min/1.73m2 Glucose Fasting 97 60 - 99 mg/dL [facility] Calcium 9.5 8.4 - 10.2 mg/dL [facility] Bilirubin, Total 0.6 0.0 - 1.0 mg/dL [facility] Aspartate Amino Transferase 34(H) 5 - 31 U/L [facility] Alanine Aminotransferase 26 0 - 31 U/L [facility] Total Protein 7.2 6.5 - 8.0 g/dL [facility] Albumin Level 4.2 3.5 - 5.0 g/dL [facility] Alkaline Phosphatase 88 39 - 117 U/L [facility] 03/24/2025 10:3 0 AM EDT 03/24/2025 2:37 PM EDT us Generic External Data Provider LAB BLOOD ORDERAB LES Final Result [facility] [address] [place] [address] [phone] * (ABNORMAL) TSH W/Reflex to FT4 (03/24/2025 10:30 AM EDT) Only the most recent of2 resultswithin the time period is included. TSH reflex Free T4 0.09(L) 0.32 - 4.0 uIU/mL [facility] Blood Venous blood specimen / Unknown 03/24/2025 10:30 AM EDT 03/24/2025 2:37 PM EDT [facility] LAB BLOOD ORDERABLES Final Resul t [facility] [address] [place] [phone] * (ABNORMAL) CBC auto differential (03/24/2025 10:30 AM EDT) Pathologist [facility] White Blood Count 4.0(L) 4.8 - 10.8 X10*3/uL [facility] Red Blood Count 4.09(L) 4.20 - 5.50 X10*6/uL [facility] Hemoglobin 12.7 12.0 - 16.0 g/dl [facility] Hematocrit 38.3 37.0 - 47.0 % [facility] Mean Corpuscular Volume 93.6 80.0 - 98.0 fL [facility] Mean Corpuscular Hemoglobin 31.1 27.0 - 33.0 pg [facility] Mean Corpuscular HGB Conc 33.2 31.0 - 35.0 g/dl [facility] Red Cell Distribution Width 12.2 11.0 - 16.0 % [facility] Platelet Count 249 160 - 400 X10*3/uL [facility] Mean Platelet Volume 10.8 9.4 - 12.3 fL [facility] Neutrophils Percent Auto 46.1 45 - 73 % [facility] Imm Gran Pct Auto 0.2 0.0 - 0.4 % [facility] Lymphocytes Percent Auto 41.5(H) 20 - 40 % [facility] Monocytes Percent Auto 8.5 2 - 11 % [facility] Eosinophils Percent Auto 3.0 0 - 4 % [facility] Basophils Percent Auto 0.7 0 - 2 % [facility] NRBC Pct Auto 0.0 0.0 - 0.2 /100WBC [facility] Neutrophils Absolute Auto 1.9(L) 2.0 - 8.3 x10*3/uL [facility] Imm Gran Abs Auto 0.01 0.00 - 0.03 X10*3/uL [facility] Lymphocytes Absolute Auto 1.7 1.2 - 4.9 X10*3/uL [facility] Monocytes Absolute Auto 0.3 0.1 - 1.2 X10*3/uL [facility] Eosinophils Absolute Auto 0.1 0.0 - 0.4 X10*3/uL [facility] Basophils Absolute Auto 0.0 0.0 - 0.2 X10*3/uL [facility] NRBC Abs Auto 0.000 0.0 - 0.012 X10*3/uL [facility] 03/24/2025 10:3 0 AM EDT 03/24/2025 2:37 PM EDT Generic External Data Provider LAB BLOOD ORDERAB LES Final Result Performing Organization Address City/[facility]/ZIP Co de Phone Number [facility] [address] [place] [phone] * T4, Free (03/24/2025 10:30 AM EDT) Only the most recent of2 resultswithin the time period is included. Free T4 (Free Thyroxine) 1.44 0.71 - 1.85 ng/dL [facility] 03/24/2025 10:3 0 AM EDT 03/24/2025 2:37 PM EDT us Sonya Isaacs ANP LAB BLOOD ORDERABLES Final Resul t Performing Organization Address City/[facility]/ZIP Co de Phone Number [facility] [address] [place] [phone] * Hepatic Function Panel (03/24/2025 10:30 AM EDT) Bilirubin, Direct 0.2 0.0 - 0.5 mg/dL [facility] 03/24/2025 10:3 0 AM EDT 03/24/2025 2:37 PM EDT us Generic External Data Provider LAB BLOOD ORDERAB LES Final Result Performing Organization Address City/[facility]/ZIP Co de Phone Number [facility] [address] [place] [phone] * (ABNORMAL) Lipid Panel, Standard (03/24/2025 10:30 AM EDT) Triglycerides 98 <150 mg/dL [facility] Comment:Desirable Triglyceri de: less than 150 mg/dLBorderline High Triglyceride 150-199 mg/dLHigh Triglyceride: 200-499 mg/dLVery High Triglyceride: greater than or equal to 5OO mg/dL Cholesterol 178 <200 mg/dL [facility] Comment:Desirable Cholestero l: less than 200 mg/dLBorderline High Cholesterol: 200-239 mg/dLHigh Cholesterol: greater than 239 mg/dL LDL Cholesterol Calculated 110(H) <100 mg/dL [facility] Comment:Desirable LDL: less than 100 mg/dLNear [...] ORDERAB LES Final Result Performing Organization Address City/[facility]/ZIP Co de Phone Number [facility] [address] [place] [phone] * POCT HGB A1C (11/20/2024 3:31 PM EDT) Hemoglobin A1C 5.9 4.0 - 6.0 % QC Media Lot # [id number] Lot# Expiration Date ,637 Blood 11/20/2024 3:31 PM EDT Ebenezer Acuña MD POINT OF CARE TEST ENTER/ED IT ORDERABLES Final Result * ThinPrep Imaging Pap and HPV mRNA E6/E7 (03/17/2024 10:00 AM EDT) HPV nRNA E6/E7 Not Detected Not Detected [facility] Comment:Methodology: Transcr iption-Mediated AmplificationThis assay detects E6/E7 viral messenger RNA (mRNA) from 14high-risk HPV types (16,18,31,33,35,39,45,51,52,56,58,59,66,68).Cervical sources are required for HPV testing.If a vaginal source from a patient who has had atotal hysterectomy with removal of cervix wassubmitted, please contact the testing laboratoryfor alternative testing options.For additional information, please refer tohttp://education.adsquare/faq/DFU932v5(This link if provided for information/educational purposes only.)THIS TEST WAS PERFORMED AT:[facility] [place] [phone] ALBERTS MD SOURCE: SEE NOTE [facility] Comment:None given Report Status: [facility] Clinical Information: SEE NOTE [facility] Comment:None given LMP: SEE NOTE [facility] Comment:NONE GIVEN Prev. PAP: SEE NOTE [facility] Comment:NONE GIVEN Prev. BX: SEE NOTE [facility] Comment:NONE GIVEN Statement Of Adequacy: SEE NOTE [facility] Comment:SATISFACTORY FOR JUDSON LUATION General Categorization: [facility] Interpretation/Result: SEE NOTE [facility] Comment:Cytology Results: Ne gative for intraepitheliallesion or malignancy.Atrophic pattern; predominantly parabasal cells Cytology Comment SEE NOTE [facility] Comment:This Pap test has be en evaluated with computerassisted technology. Steam Conditioner Operator: SEE NOTE [facility] Comment:DMM, CT(ASCP)CT scre ening location: [place] [address] Review Steam Conditioner Operator: [facility] Pathologist [facility] PAP Infection [facility] See Note SEE NOTE [facility] Comment:EXPLANATORY NOTE:The Pap is a screening test for cervical cancer. It isnot a diagnostic test and is subject to false negativeand false positive results. It is most reliable when asatisfactory sample, regularly obtained, is submittedwith relevant clinical findings and history, and whenthe Pap result is evaluated along with historic andcurrent clinical information. 03/17/2024 10:0 0 AM EDT 03/17/2024 2:30 PM EDT Narrative [facility] - 03/20/2024 2:55 PM EDT SEE SCANNED RESULTS IN EMR us Ashlee Meza MD LAB PATHOLOGY ORDERABLES Erika rich Result [facility] [address] [place] [phone] * BI Mammogram Screening Tomosynthesis Bilateral (01/21/2024 11:36 AM EDT) Anatomical Region Laterality Modality Breast Bilateral Mammography 01/21/2024 11:3 6 AM EDT Narrative 02/19/2024 11:23 PM EDT [facility] [address] [place] [address] Mammography Report Signed Patient: Abilio Olivares MR#: [id number] 74 : 1970 Acct:[id number] Age/Sex: 53 / F ADM Date: 01/21/24 Loc: HO.MAMMO Attending Dr: Ashlee Meza MD Ordering Physician: Ashlee Meza MD Results: 2Beni gn Findings Date of Service: 01/21/24 Follow Up: 1 Year From Orig inal Mammogram Procedure(s): MM tomosynthesis screening BI Accession Number(s): [id number] cc: Ashlee Meza MD EXAMINATION: MM SCREENING [...] in OV> 02/19/24 2319 DD/ 1136 TD/TT: Welding Supervisor: Procedure Note Donotuseinterpreter, Image - 02/19/2024 [facility] [address] [place] [address] Mammography Report Signed Patient: Abilio Olivares#: [id number] 73 : 1970Acct:[id number] Age/Sex: 53 / FADM Date: 01/21/24 Loc: [place] Attending Dr: Ashlee Meza MD Ordering Physician: Ashlee Meza MDResults: 2Beni gn Findings Date of Service: 01/21/24Follow Up: 1 Year From Orig inal Mammogram Procedure(s): MM tomosynthesis screening BI Accession Number(s): [id number] cc: Ashlee Meza MD EXAMINATION: MM SCREENING [...] in OV> 02/19/24 2319 DD/ 1136 TD/TT: Welding Supervisor: Ashlee Meza MD IMG BI PROCEDURES Edited Resu lt - Final * Hepatitis C Ab (10/03/2022 6:48 AM EST) Hepatitis C Antibody Nonreactive Nonreactive [facility] Comment:Antibodies to HCV no t detected; does not exclude early acuteHCV infection. 10/03/2022 6:48 AM EST 10/03/2022 6:48 AM EST [facility] External Provider LAB BLO OD ORDERABLES Final Result [facility] [address] [place] [phone] * HIV Ab/Ag ([facility]) (10/03/2022 6:48 AM EST) HIV AB/AG Nonreactive Nonreactive [facility] Comment:HIV-1 p24 Ag and/or HIV-1/HIV-2 Ab not detected.A test result that is nonreactive does not exclude thepossibility of exposure to or infection with HIV-1 and/orHIV-2. Nonreactive results in this assay for individualswith prior exposure to HIV-1 and/or HIV-2 may be due toantigen and antibody levels that are below the limit ofdetection of this assay.The [employer] Power Transformer Repairer HIV Ag/Ab Combo assay result andsupplemental assay results should be interpreted inconjunction with the patient's clinical presentation,history and other laboratory results. If the results areinconsistent with clinical evidence, additional testing issuggested to confirm the result. 10/03/2022 6:48 AM EST 10/03/2022 6:48 AM EST [facility] External Provider LAB BLO OD ORDERABLES Final Result [facility] [address] [place] [phone] * Colonoscopy (09/20/2020) Colonoscopy Normal Normal Narrative Kaia Miranda - 09/20/2020 Recommended 5 year follow up Historical Provider HEALTH MAINTENANCE Edited Result - Final from Last 3 Months or Most Recently Relevant to Health Maintenance Insurance [facility] [employer] Care Teams Mold Capper Relationship Specialty Start Date End Date Morgan Curran MD [address] [place] [phone] PCP - General Internal Medicine 08/18/24
--- OUTSIDE RECORDS SUMMARY | 2025-04-01 09:59 | XMS_ITS | Encounter Summary ---
Author Organization [employer] Address [address] [place] [address] [place] [address] Care Team Providers Care Sewing Machine Repairer Name Role Phone Ashlee Meza MD Primary Care Provider [phone] Morgan Curran MD Primary Care Prov ider Encounter Details Date Type Department Care Team (Late st Contact Info) Description 08/07/2022 Telephone [facility] [address] [place], [place] [phone] Ashlee Meza MD [address] [place] [address] Social History Tobacco Use Types Packs/Day Years [...] on filedocumented in this encounter Care Teams Sewing Machine Repairer Relationship Specialty Start Date End Date Ashlee Meza MD [address] [place] [address] PCP - General Family Medicine 03/28/20 08/17/24 Morgan Curran MD [address] [place] [phone] PCP - General Internal Medicine 08/18/24 documented as of this encounter
--- OUTSIDE RECORDS SUMMARY | 2025-04-01 09:59 | XMS_ITS | Encounter Summary ---
Author Organization [employer] Address [address] [facility] [address]t [place] [address] Care Team Providers Care Etcher Photoengraving Name Role Phone Mogran Curran MD Primary Care Prov ider Reason for Visit * Reason Onset Date Comments Med Refill 09/15/2024 Encounter Details Date Type Department Care Team (Late st Contact Info) Description 09/15/2024 Refill [facility] [address] [place] [address] Ashlee Meza MD [address] [place] [address] Spasm of cervical paraspinous muscle Social History [...] documented as of this encounter Care Teams Etcher Photoengraving Relationship Specialty Start Date End Date Morgan Curran MD [address] [place] [phone] PCP - General Internal Medicine 08/18/24 documented as of this encounter
--- OUTSIDE RECORDS SUMMARY | 2025-04-01 09:59 | XMS_ITS | Encounter Summary ---
Author Organization [email or web address] Address [address] [facility] [address] [place] [address] Care Team Providers Care Automatic Fabric Cutter Name Role Phone Morgan Curran MD Primary Care Prov ider Encounter Details Date Type Department Care Team ([facility] st Contact Info) Description 12/03/2024 Orders Only [facility] [address] [place], [place] [phone] Ebenezer cAuña MD [address] [place] [address] Unilateral subjective nonpulsatile tinnitus without hearing loss, [...] AM EDT Narrative 12/29/2024 11:49 AM EDT [place] [address] Magnetic Resonance Report Signed Patient: Ashley Olivares MR#: [id number] 74 : 1970 Acct:[id number] Age/Sex: 54 / F ADM Date: 12/29/24 Loc: HO.MRI Attending Dr: Ebenezer Acuña MD Ordering Physician: Ebenezer Acuña MD Date of Service: 12/29/24 Procedure(s): MR head/brain wo con Accession Number(s): [id number] cc: Ebenezer Acuña MD; Morgan Curran MD [...] 12/29/24 1146 DD/ 1033 TD/TT: 12/29/24 1104 Tactical/Mobile Watch Officer: Procedure Note Donotuseinterpreter, Image - 12/29/[address] [address] Magnetic Resonance Report Signed Patient: Ashley OlivaresMR#: [id number] 73 : 1970Acct:[id number] Age/Sex: 54 / FADM Date: 12/29/24 Loc: HO.MRI Attending Dr: Ebenezer Acuña MD Ordering Physician: Ebenezer Acuña MD Date of Service: 12/29/24 Procedure(s): MR head/brain wo con Accession Number(s): [id number] cc: Ebenezer Acuña MD; Morgan Curran MD [...] could be performed. Electronically signed by: Moose aMta MD 12/29/2024 11:46 AM EDT Dictated By: Moose Mata MD Signed By: <Electronically signed by Moose Mata MD in OV> 12/29/24 1146 DD/ 1033 TD/TT: 12/29/24 1104 Tactical/Mobile Watch Officer: us Ebenezer Acuña MD IM MRI PROCEDURES Final Re sult documented in this encounter Visit Diagnoses Diagnosis Unilateral subjective nonpulsatile tinnitus without hearing loss, otoscopic finding, neurologic deficit, or head trauma- Primary documented in this encounter Additional Health Concerns Assessment Noted Time PHQ-9 Depression Total Score: 8 05/25/20 24 8:54 AM EDT documented as of this encounter Care Teams Automatic Fabric Cutter Relationship Specialty Start Date End Date Morgan Curran MD [address] [place] [address] PCP - General Internal Medicine 08/18/24 documented as of this encounter
--- OUTSIDE RECORDS SUMMARY | 2025-04-01 10:00 | XMS_ITS | Encounter Summary ---
Author Organization [employer] Address [address] [address] Care Team Providers Care Farmhand Name Role Phone Morgan Curran MD Primary Care Prov ider Reason for Visit * Reason Onset Date Comments Med Refill 03/30/2025 Encounter Details Date Type Department Care Team (Late st Contact Info) Description 03/30/[address] [facility] [address] [place], [place] [phone] Morgan Curran MD [address] [place] [address] Spasm of cervical paraspinous muscle Social History [...] documented as of this encounter Care Teams Farmhand Relationship Specialty Start Date End Date Morgan Curran MD [address] [place] [address] PCP - General Internal Medicine 08/18/24 documented as of this encounter
--- OUTSIDE RECORDS SUMMARY | 2025-04-01 10:00 | XMS_ITS | Encounter Summary ---
Author Organization [employer] Address [address] [place] [address] Care Team Providers Care Cutlery Grinder Name Role Phone Morgan Curran MD Primary Care Prov ider Reason for Visit * Reason Onset Date Comments Nurse Triage 11/20/2024 Encounter Details Date Type Department Care Team (Late st Contact Info) Description 11/20/2024 Telephone [facility] MEDICINE [address] [place] [address] Morgan Curran MD [address] [place] [address] Nurse Triage Social History Tobacco Use Types [...] call with [facility] [place] [id number] Pt reports a buzzing sound in left ear started 2 days ago. Pt also has sx of sneezing, eyes irritated, dizziness. Neg for pain or loss of hearing. Sound is constant. This does interfere with normal activities. ASK apt in [facility] @ 240pm 11/20/24. Pt agrees with [...] documented as of this encounter Care Teams Cutlery Grinder Relationship Specialty Start Date End Date Morgan Curran MD [address] [place] [address] PCP - General Internal Medicine 08/18/24 documented as of this encounter
--- OUTSIDE RECORDS SUMMARY | 2025-04-01 10:00 | XMS_ITS | Encounter Summary ---
Author Organization [employer] [facility] Address [address] [place] [address] [place] [address] Care Team Providers Care Bonbon Cream Warmer Name Role Phone Morgan Curran MD Primary Care Prov ider Reason for Referral * Consultation (Routine) - Closed Specialty Diagnoses / Procedures Referred By Contyris schrader Referred To Contact Otolaryngology Diagnoses Unilateral subjective nonpulsatile tinnitus without hearing loss, otoscopic finding, neurologic deficit, or head trauma Ebenezer Acuña MD [address] [place] [address] Phone: tel: fax: [facility] [address] Phone: tel: fax: Referral ID Status Reason Start Date Expiration Date V isits Requested Visits Authorized [id number] Closed Specialty Services Required 12/29/2024 12/29/2025 1 1 Encounter Details Date Type Department Care Team (Late st Contact Info) Description 12/29/2024 Orders Only [facility] MED & PEDS [address] [place] [address] Ebenezer Acuña MD [address] [place] [address] Unilateral subjective nonpulsatile tinnitus without hearing loss, [...] documented as of this encounter Care Teams Bonbon Cream Warmer Relationship Specialty Start Date End Date Morgan Curran MD [address] [place] [address] PCP - General Internal Medicine 08/18/24 documented as of this encounter
--- OUTSIDE RECORDS SUMMARY | 2025-04-01 10:00 | XMS_ITS | Encounter Summary ---
Author Organization [employer] Address 75 [facility] 7t [place] [address] Care Team Providers Care General Passenger Agent Name Role Phone Morgan Curran MD Primary Care Prov ider Encounter Details Date Type Department Care Team (Late st Contact Info) Description 03/25/2025 Results Follow-Up [facility] MEDICINE [address] [place], [place] [phone] Sonya Isaacs, ANP [address] [place] [address] T4, Free Social History Tobacco Use Types Packs/Day Years [...] documented as of this encounter Care Teams General Passenger Agent Relationship Specialty Start Date End Date Morgan Curran MD [address] [place] [address] PCP - General Internal Medicine 08/18/24 documented as of this encounter
--- OUTSIDE RECORDS SUMMARY | 2025-04-01 10:00 | XMS_ITS | Encounter Summary ---
Author Organization [employer] Address 75 [facility] 7t [place] [address] Care Team Providers Care Television News Producer Name Role Phone Ashlee Meza MD Primary Care Provider [phone] Morgan Curran MD Primary Care Prov ider Reason for Visit * Reason Comments Med Refill Encounter Details Date Type Department Care Team ([facility] Contact Info) Description 05/21/2023 Refill [facility] MED & PEDS [address] [place] [address] Ashlee Meza MD [address] [place] [address] Social History Tobacco Use Types Packs/Day Years [...] documented as of this encounter Care Teams Television News Producer Relationship Specialty Start Date End Date Ashlee Meza MD [address] [place] [address] PCP - General Family Medicine 03/28/20 08/17/24 Morgan Curran MD [address] [place] [address] PCP - General Internal Medicine 08/18/24 documented as of this encounter
--- OUTSIDE RECORDS SUMMARY | 2025-04-01 10:00 | XMS_ITS | Encounter Summary ---
Author Organization [employer] Address 75 [facility] 7t [place] [address] Care Team Providers Care Document Reviewer Name Role Phone Ashlee Meza MD Primary Care Provider [phone] Morgan Curran MD Primary Care Prov ider Reason for Visit * Reason Onset Date Comments Nurse Triage 08/12/2024 Encounter Details Date Type Department Care Team (Late st Contact Info) Description 08/12/2024 Telephone [facility] MEDICINE [address] [place] [address] Ashlee Meza MD [address] [place] [address] Nurse Triage Social History Tobacco Use Types [...] the past 12 months, has t he [employer], gas, oil or water [employer] threatened to shut off services in your [...] 08/12/2024 3:04 PM EST Triage call with [facility] [place] [id number]. Pt reports can speak Telugu. Triage continued in mauritanian at this time. Pt reports frequency , [...] The caller accepted this outcome. Contact pt [phone] documented in this encounter Plan of Treatment Not on file documented as of this encounter Visit Diagnoses Not on filedocumented in this encounter Additional Health Concerns Assessment Noted Time PHQ-9 Depression Total Score: 8 05/25/20 24 8:54 AM EDT documented as of this encounter Care Teams Document Reviewer Relationship Specialty Start Date End Date Ashlee Meza MD [address] [place] [address] PCP - General Family Medicine 03/28/20 08/17/24 Morgan Curran MD [address] [place] [address] PCP - General Internal Medicine 08/18/24 documented as of this encounter
--- OUTSIDE RECORDS SUMMARY | 2025-04-01 10:00 | XMS_ITS | Encounter Summary ---
Author Organization [employer] Address [address] [address] Care Team Providers Care Construction Pit Worker Name Role Phone Morgan Curran MD Primary Care Prov ider Reason for Visit * Reason Onset Date Comments Med Refill 03/30/2025 Encounter Details Date Type Department Care Team (Late st Contact Info) Description 03/30/2025 Refill [facility] CH[facility] MED & PEDS [address] [place] [address] Morgan Curran MD [address] [place] [address] Mixed anxiety and depressive disorder Social History Tobacco Use Types Packs/Day Years [...] as of this encounter Visit Diagnoses Diagnosis Mixed anxiety and depressive disorder Dysthymic disorder documented in this encounter Additional Health Concerns Assessment Noted Time PHQ-9 Depression Total Score: 8 05/25/20 24 8:54 AM EDT documented as of this encounter Care Teams Construction Pit Worker Relationship Specialty Start Date End Date Morgan Curran MD [address] [place] [address] PCP - General Internal Medicine 08/18/24 documented as of this encounter
[2025-04-01 14:05] LABS: MANUAL DIFF FLAG NO
[2025-04-01 14:13] LABS: Hematocrit 37.2 % (37.0-47.0); Hemoglobin 12.3 g/dl (12.0-16.0); Imm Gran Abs Auto 0.02 X10*3/uL (0.00-0.03); Imm Gran Pct Auto 0.5 % (0.0-0.4); Lymphocytes Absolute Auto 1.8 X10*3/uL (1.2-4.9); Mean Corpuscular HGB Conc 33.1 g/dl (31.0-35.0); Mean Corpuscular Hemoglobin 31.1 pg (27.0-33.0); Mean Corpuscular Volume 94.2 fL (80.0-98.0); NRBC Abs Auto 0.000 X10*3/uL (0.0-0.012); NRBC Pct Auto 0.0 /100WBC (0.0-0.2); Platelet Count 252 X10*3/uL (160-400); Red Blood Count 3.95 X10*6/uL (4.20-5.50); White Blood Count 4.2 X10*3/uL (4.8-10.8)
[2025-04-01 14:28] LABS: Alanine Aminotransferase 24 U/L (0-31); Albumin Level 4.1 g/dL (3.5-5.0); Alkaline Phosphatase 84 U/L (39-117); Anion Gap 12 (12-20); Aspartate Amino Transferase 31 U/L (5-31); Blood Urea Nitrogen 13 mg/dL (9-16); Calcium 9.3 mg/dL (8.4-10.2); Carbon Dioxide 26 mmol/L (22-29); Chloride 108 mmol/L (96-108); Cholesterol 184 mg/dL (<200); Estimated Glomerular Filt Rate > 60; HDL Cholesterol 47 mg/dL (>40); Potassium 4.3 mmol/L (3.3-5.1); Sodium 142 mmol/L (135-145); Total Protein 7.1 g/dL (6.5-8.0); Triglycerides 131 mg/dL (<150)
[2025-04-01 14:47] LABS: Free T4 (Free Thyroxine) 0.86 ng/dL (0.71-1.85)
== END 2025-04-01 09:17 | disposition home or self-care (01) ==
LOC: HO.CHCLDS 09:16
PROVIDERS: Visit Provider Internal Medicine
DX: E03.9 Hypothyroidism, unspecified (principal); Z79.899 Other long term (current) drug therapy
CPT/HCPCS: 36415; 80053; 80061; 82248; 84439; 84443; 85025

== ENCOUNTER 2025-04-14 05:14 | Emergency (ER) | payer MEDICAID, SELFPAY ==
[2025-04-14 05:16] VITALS: BP 177/86; PULSE 78; RESP 16; TEMP 36.1; O2SAT 97; BMI 23.9
[2025-04-14 05:51] LABS: MANUAL DIFF FLAG NO
[2025-04-14 05:53] LABS: Appearance Urine Clear; Glucose Urine UA Negative (Negative); PH 6.0 (5.0-9.0); Specific Gravity - Urine 1.025 (1.005-1.025); UMIC TRIGGER UACC YES
[2025-04-14 05:58] LABS: UACC Culture Trigger YES
[2025-04-14 06:03] LABS: Hematocrit 36.9 % (37.0-47.0); Hemoglobin 12.9 g/dl (12.0-16.0); Imm Gran Abs Auto 0.02 X10*3/uL (0.00-0.03); Imm Gran Pct Auto 0.3 % (0.0-0.4); Lymphocytes Absolute Auto 2.2 X10*3/uL (1.2-4.9); Mean Corpuscular HGB Conc 35.0 g/dl (31.0-35.0); Mean Corpuscular Hemoglobin 31.5 pg (27.0-33.0); Mean Corpuscular Volume 90.0 fL (80.0-98.0); NRBC Abs Auto 0.000 X10*3/uL (0.0-0.012); NRBC Pct Auto 0.0 /100WBC (0.0-0.2); Platelet Count 262 X10*3/uL (160-400); Red Blood Count 4.10 X10*6/uL (4.20-5.50); White Blood Count 5.7 X10*3/uL (4.8-10.8)
--- OUTSIDE RECORDS SUMMARY | 2025-04-14 06:07 | XMS_ITS | Encounter Summary ---
Author Organization [employer] Address 75 [facility] 7 [place] [address] Care Team Providers Care Laborer Heading Name Role Phone Morgan Curran MD Primary Care Prov ider Encounter Details Date Type Department Care Team ([facility] st Contact Info) Description 12/03/2024 Orders Only [facility] CHC MED & PEDS [address] [place], [place] [phone] Ebenezer Acuña MD [address] [place] [address] Unilateral subjective nonpulsatile tinnitus without hearing loss, [...] AM EDT Narrative 12/29/2024 11:49 AM EDT [place] [address] Magnetic Resonance Report Signed Patient: Ashley Olivares MR#: [id number] : 1970 Acct:[id number] Age/Sex: 54 / F ADM Date: 12/29/24 Loc: HO.MRI Attending Dr: Ebenezer Acuña MD Ordering Physician: Ebenezer Acuña MD Date of Service: 12/29/24 Procedure(s): MR head/brain wo con Accession Number(s): [id number] cc: Ebenezer Acuña MD; Morgan Curran MD [...] 12/29/24 1146 DD/ 1033 TD/TT: 12/29/24 1104 Fire Claims Adjuster: Procedure Note Donotuseinterpreter, Image - 12/29/[address] [address] Magnetic Resonance Report Signed Patient: Ashley OlivaresMR#: [id number] : 1970Acct:[id number] Age/Sex: 54 / FADM Date: 12/29/24 Loc: HO.MRI Attending Dr: Ebenezer Acuña MD Ordering Physician: Ebenezer Acuña MD Date of Service: 12/29/24 Procedure(s): MR head/brain wo con Accession Number(s): [id number] cc: Ebenezer Acuña MD; Morgan Curran MD [...] 12/29/24 1146 DD/ 1033 TD/TT: 12/29/24 1104 Fire Claims Adjuster: us Ebenezer Acuña MD IM MRI PROCEDURES Final Re sult documented in this encounter Visit Diagnoses Diagnosis Unilateral subjective nonpulsatile tinnitus without hearing loss, otoscopic finding, neurologic deficit, or head trauma- Primary documented in this encounter Additional Health Concerns Assessment Noted Time PHQ-9 Depression Total Score: 8 05/25/20 24 8:54 AM EDT documented as of this encounter Care Teams Laborer Heading Relationship Specialty Start Date End Date Morgan Curran MD [address] [place] [address] PCP - General Internal Medicine 08/18/24 documented as of this encounter
--- OUTSIDE RECORDS SUMMARY | 2025-04-14 06:07 | XMS_ITS | Encounter Summary ---
Author Organization [employer] [facility] Address [address] [place] [address] 7t [place] [address] Care Team Providers Care Metallurgical Engineering Teacher Name Role Phone Ashlee Meza MD Primary Care Provider [phone] Morgan Curran MD Primary Care Prov ider Reason for Visit * Reason Onset Date Comments triage 12/04/2022 Encounter Details Date Type Department Care Team ([facility] st Contact Info) Description 12/04/2022 Telephone [facility] CHC MED & PEDS [address] [place], [place] [phone] Ashlee Meza MD [address] [place], [place] [phone] triage Social History Tobacco Use Types Packs/Day [...] 12/04/2022 11:13 AM EDT Triage call with [employer] Business Analyst [employer] [place] [id number] Pt reports for two days now, itchy [...] documented as of this encounter Care Teams Metallurgical Engineering Teacher Relationship Specialty Start Date End Date Ashlee Meza MD [address] [place] [address] PCP - General Family Medicine 03/28/20 08/17/24 Morgan Curran MD [address] [place] [address] PCP - General Internal Medicine 08/18/24 documented as of this encounter
--- OUTSIDE RECORDS SUMMARY | 2025-04-14 06:07 | XMS_ITS | Encounter Summary ---
Author Organization [employer] [facility] Address 75 [facility] 7t [place] [address] Care Team Providers Care Director Of Diversity And Inclusion Name Role Phone Ashlee Meza MD Primary Care Provider [phone] Morgan Curran MD Primary Care Prov ider Reason for Visit * Reason Comments Med Refill Encounter Details Date Type Department Care Team ([facility] st Contact Info) Description 09/14/2022 Refill [facility] MEDICINE [address] [place] [address] Cornell Bucio FNP Anxiety (Primary Dx) Social [...] unspecified documented in this encounter Care Teams Director Of Diversity And Inclusion Relationship Specialty Start Date End Date Ashlee Meza MD [address] [place] [address] PCP - General Family Medicine 03/28/20 08/17/24 Morgan Curran MD [address] [place] [address] PCP - General Internal Medicine 08/18/24 documented as of this encounter
--- OUTSIDE RECORDS SUMMARY | 2025-04-14 06:08 | XMS_ITS | Clinical Summary ---
Author Organization [employer] Address [address] [facility] [address] [place] [address] Care Team Providers Care Body Shop Supervisor Name Role Phone Morgan Curran MD [...] and at bedtime for anxiety. 56 tablet 04/06/20 25 025 Active clonazePAM (KlonoPIN) 1 MG tabletIndicatio ns:Mixed anxiety and depressive disorder Take 1 tablet (1 mg) by mouth if needed in the morning and at bedtime for anxiety. 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 Mixed anxiety and depressive disorder [...] Encounters Date Type Department Care Team Description 04/14/2025 Orders Only GENERIC EXTERNAL DATA DEPARTMENT Provider, Generic External Data 04/01/2025 Orders Only GENERIC EXTERNAL DATA DEPARTMENT Provider, Generic External Data 03/30/2025 Refill [facility] [address] [place] [address] Morgan Curran MD Spasm of cervical paraspinous muscle 03/30/2025 Refill [facility] [address] [place] [address] Morgan Curran MD Mixed anxiety and depressive disorder 03/25/2025 Results Follow-Up [facility] [address] [place], [place] [phone] Sonya Isaacs, ANP TSH W/Reflex to FT4 03/25/2025 Results Follow-Up [facility] [address] [place] [address] Sonya Isaacs ANP T4, Free 03/24/2025 Orders Only GENERIC EXTERNAL DATA DEPARTMENT Provider, Generic External Data 03/24/2025 Telephone [facility] [address] [place] [address] Morgan Curran MD Change PCP 02/25/2025 Refill [facility] [address] [place] [address] Ashlee Meza MD 02/23/2025 2:30 PM EDT Telemedicine [facility] [address] [place] [address] Morgan Curran MD Left thyroid nodule (Primary Dx); Mixed anxiety and depressive disorder; Primary hypertension; Hypothyroidism, unspecified type; Pelvic pressure in female 02/23/2025 Travel 02/19/2025 Orders Only [facility] [address] [place] [address] Sonya Isaacs ANP Hypothyroidism, unspecified type (Primary Dx) 02/19/2025 Results Follow-Up [facility] [address] [place] [address] Sonya Isaacs ANP TSH W/Reflex to FT4 02/19/2025 Orders Only [facility] [address] [place] [address] Morgan Curran MD 01/19/2025 Refill [facility] [address] [place] [address] Morgan Curran MD Hypothyroidism, unspecified type 01/19/2025 Telephone [facility] [address] [place] [address] Morgan Curran MD Med Refill from Last [...] Screening 03/17/2029 HPV/Cotest 03/17/2029 03/17/2024 Lipid Panel 04/01/2030 04/01/2025, 02/27, 08/13/2024, Additional history exists RSV Patients and Patients Aged 60 years or older (1 - 1-dose 75+ series) 2044 Hepatitis A Vaccines Completed 01/13/2018, 01/19/20 HIV Screening Completed 10/03/2022, 0803/2022, 11/09/2021, Additional [...] Procedure Name Priority Date/Time Associated Diagnosis Comments CBC WITH AUTO DIFFERENTIAL Routine 04/14/2025 5:48 AM EDT URINALYSIS, COMPLETE, WITH REFLEX TO CULTURE Routine 04/14/2025 5:48 AM EDT T4, FREE Routine 04/01/2025 9:26 AM EDT LIPID PANEL, STANDARD Routine 04/01/2025 9:26 AM EDT GLUCOSE Routine 04/01/2025 9:26 AM EDT HEPATIC FUNCTION PANEL Routine 04/01/2025 9:26 AM EDT COMPREHENSIVE METABOLIC PANEL Routine 04/01/2025 9:26 AM EDT CBC WITH AUTO DIFFERENTIAL Routine 04/01/2025 9:26 AM EDT TSH W/REFLEX TO FT4 Routine 04/01/2025 9 :26 AM EDT Hypothyroidism, unspecified type US THYROID Routine 03/25/2025 3:13 PM EDT [...] Routine 11/20/2024 3:31 PM EDT Deficiency of ctghhqr-8-osbdcatjb dehydrogenase THINPREP IMAGING PAP AND HPV MRNA [...] Relevant to Health Maintenance Results * (ABNORMAL) Urinalysis, Complete, with Reflex to Culture (04/14/2025 5:48 AM EDT) Color Urine Yellow [facility] Appearance Urine Clear [facility] PH 6.0 5.0 - 9.0 [facility] Glucose Urine UA Negative Negative mg/dL [facility] Urine Blood Negative Negative [facility] Specific [place] - Urine 1.025 1.005 - 1.025 [facility] Urine Protein Trace Neg-Trace mg/dL [facility] Urine Ketones Trace Negative mg/dL [facility] Nitrite Urine Negative Negative [facility] Leukocyte Esterase Urine Small (1+)(A) Negative [facility] RBC Urine 0-2 0 - 2 /HPF [facility] Urine WBC 6-10(A) 0 - 5 /HPF [facility] Urine Squamous Epithelial Cell 0-2 0 - 2 /HPF [facility] Urine Bacteria None Seen None Seen [facility] Hyaline Casts, Urine 0-2 0 - 2 /LPF [facility] 04/14/2025 5:48 AM EDT 04/14/2025 5:51 AM EDT Narrative [facility] - 04/14/2025 6:02 AM EDT Urine, Clean Catch us Generic External Data Provider LAB URINE ORDERAB LES Final Result [facility] [address] [place] [address] [phone] * (ABNORMAL) CBC auto differential (04/14/2025 5:48 AM EDT) Only the most recent of3 resultswithin the time period is included. White Blood Count 5.7 4.8 - 10.8 X10*3/uL [facility] Red Blood Count 4.10(L) 4.20 - 5.50 X10*6/uL [facility] Hemoglobin 12.9 12.0 - 16.0 g/dl [facility] Hematocrit 36.9(L) 37.0 - 47.0 % [facility] Mean Corpuscular Volume 90.0 80.0 - 98.0 [facility] Mean Corpuscular Hemoglobin 31.5 27.0 - 33.0 pg [facility] Mean Corpuscular HGB Conc 35.0 31.0 - 35.0 g/dl [facility] Red Cell Distribution Width 12.3 11.0 - 16.0 % [facility] Platelet Count 262 160 - 400 X10*3/uL [facility] Mean Platelet Volume 9.9 9.4 - 12.3 fL [facility] Neutrophils Percent Auto 49.7 45 - 73 % [facility] Imm Gran Pct Auto 0.3 0.0 - 0.4 % [facility] Lymphocytes Percent Auto 39.0 20 - 40 % [facility] Monocytes Percent Auto 6.3 2 - 11 % [facility] Eosinophils Percent Auto 4.0 0 - 4 % [facility] Basophils Percent Auto 0.7 0 - 2 % [facility] NRBC Pct Auto 0.0 0.0 - 0.2 /100WBC [facility] Neutrophils Absolute Auto 2.8 2.0 - 8.3 x10*3/uL [facility] Imm Gran Abs Auto 0.02 0.00 - 0.03 X10*3/uL [facility] Lymphocytes Absolute Auto 2.2 1.2 - 4.9 X10*3/uL [facility] Monocytes Absolute Auto 0.4 0.1 - 1.2 X10*3/uL [facility] Eosinophils Absolute Auto 0.2 0.0 - 0.4 X10*3/uL [facility] Basophils Absolute Auto 0.0 0.0 - 0.2 X10*3/uL [facility] NRBC Abs Auto 0.000 0.0 - 0.012 X10*3/uL [facility] 04/14/2025 5:48 AM EDT 04/14/2025 5:51 AM EDT us Generic External Data Provider LAB BLOOD ORDERAB LES Final Result Performing Organization Address [facility]/ZIP Co de Phone Number [facility] [address] [place] [phone] * TSH W/Reflex to FT4 (04/01/2025 9:26 AM EDT) Only the most recent of3 resultswithin the time period is included. TSH reflex Free T4 0.48 0.32 - 4.0 uIU/mL [facility] Blood Venous blood specimen / Unknown 04/01/2025 9:26 AM EDT 04/01/2025 1:55 PM EDT us Morgan Huffman MD LAB BLOOD ORDERABL ES Final Result Performing Organization Address [facility] Co de Phone Number [facility] [address] [place] [phone] * T4, Free (04/01/2025 9:26 AM EDT) Only the most recent of3 resultswithin the time period is included. Free T4 (Free Thyroxine) 0.86 0.71 - 1.85 ng/dL [facility] 04/01/2025 9:26 AM EDT 04/01/2025 1:57 PM EDT Generic External Data Provider LAB BLOOD ORDERAB LES Final Result Performing Organization Address [facility]/ZIP Co de Phone Number [facility] [address] [place] [phone] * Glucose (04/01/2025 9:26 AM EDT) Glucose Fasting 99 60 - 99 mg/dL [facility] 04/01/2025 9:26 AM EDT 04/01/2025 1:57 PM EDT Generic External Data Provider LAB BLOOD ORDERAB LES Final Result Performing Organization Address [facility] Phone Number [facility] [address] [place] [phone] * Hepatic Function Panel (04/01/2025 9:26 AM EDT) Only the most recent of2 resultswithin the time period is included. Bilirubin, Direct 0.2 0.0 - 0.5 mg/dL [facility] 04/01/2025 9:26 AM EDT 04/01/2025 1:57 PM EDT Generic External Data Provider LAB BLOOD ORDERAB LES Final Result Performing Organization Address [facility] Co de Phone Number [facility] [address] [place] [phone] * (ABNORMAL) Lipid Panel, Standard (04/01/2025 9:26 AM EDT) Only the most recent of2 resultswithin the time period is included. Triglycerides 131 <150 mg/dL [facility] Comment:Desirable Triglyceri de: less than 150 mg/dLBorderline High Triglyceride 150-199 mg/dLHigh Triglyceride: 200-499 mg/dLVery High Triglyceride: greater than or equal to 5OO mg/dL Cholesterol 184 <200 mg/dL [facility] Comment:Desirable Cholestero l: less than 200 mg/dLBorderline High Cholesterol: 200-239 mg/dLHigh Cholesterol: greater than 239 mg/dL LDL Cholesterol Calculated 111(H) <100 mg/dL [facility] Comment:Desirable LDL: less than 100 mg/dLNear Optimal/Above Optimal LDL: 110- 129 mg/dLBorderline High LDL: 130-159 mg/dLHigh LDL: 160-189 mg/dLVery High LDL: greater than or equal to 190 mg/dL HDL Cholesterol 47 >40 mg/dL [facility] Comment:Desirable HDL: great er than 40 mg/dL Note: This HDL assay may give artificially low results in patients with liver disease. 04/01/2025 9:26 AM EDT 04/01/2025 1:57 PM EDT us Generic External Data Provider LAB BLOOD ORDERAB LES Final Result [facility] [address] [place] [phone] * Comprehensive Metabolic Panel (04/01/2025 9:26 AM EDT) Sodium 142 135 - 145 mmol/L [facility] Potassium 4.3 3.3 - 5.1 mmol/L [facility] Chloride 108 96 - 108 mmol/L [facility] Carbon Dioxide 26 22 - 29 mmol/L [facility] Anion Gap 12 12 - 20 [facility] Urea Nitrogen (BUN) 13 9 - 16 mg/dL [facility] Creatinine, Serum 0.79 0.5 - 1.4 mg/dL [facility] Estimated Glomerular Filt Rate >60 [facility] Comment:Chronic Kidney Disea se: Estimated GFR < 60 mL/min/[id number] Kidney Disease: Estimated GFR < 15 mL/min/1.73m2 Glucose 99 60 - 115 mg/dL [facility] Calcium 9.3 8.4 - 10.2 mg/dL [facility] Bilirubin, Total 0.5 0.0 - 1.0 mg/dL [facility] Aspartate Amino Transferase 31 5 - 31 U/L [facility] Alanine Aminotransferase 24 0 - 31 U/L [facility] Total Protein 7.1 6.5 - 8.0 g/dL [facility] Albumin Level 4.1 3.5 - 5.0 g/dL [facility] Alkaline Phosphatase 84 39 - 117 U/L [facility] 04/01/2025 9:26 AM EDT 04/01/2025 1:57 PM EDT us Generic External Data Provider LAB BLOOD ORDERAB LES Final Result Performing Organization Address City/State/[facility] Co de Phone Number [facility] [address] [place] [phone] * US Thyroid (03/25/2025 3:13 PM EDT) Anatomical Region Laterality Modality Head, Neck Ultrasound 03/25/2025 3:13 PM EDT Narrative 03/25/2025 3:43 PM EDT [place] [address] Ultrasound Report Signed Patient: Abilio Olivares MR#: [id number] 74 : 1970 Acct:[id number] Age/Sex: 54 / F ADM Date: 03/25/25 Loc: HO.US Attending Dr: Morgan Huffman MD Ordering Physician: Morgan Curran MD Date of Service: 03/25/25 Procedure(s): US thyroid Accession Number(s): [id number] cc: Morgan Curran MD EXAMINATION: US THYROID [...] Moose Mata MD 03/25/2025 03:39 PM EDT RP Dictated By: Moose Mata MD Signed By: <Electronically signed by Moose Mata MD in OV> 03/25/25 1539 DD/ 1513 TD/TT: 03/25/25 1517 Temperature Regulator Pyrometer: Procedure Note Donotuseinterpreter, Image - 03/25/[address] [address] Ultrasound Report Signed Patient: Abilio OlivaresMR#: [id number] 73 : 1970Acct:[id number] Age/Sex: 54 / FADM Date: 03/25/25 Loc: HO.US Attending Dr: Morgan Huffman MD Ordering Physician: Morgan Curran MD Date of Service: 03/25/25 Procedure(s): US thyroid Accession Number(s): [id number] cc: Morgan Curran MD EXAMINATION: US THYROID [...] 03/25/25 1539 DD/ 1513 TD/TT: 03/25/25 1517 Temperature Regulator Pyrometer: us Morgan Huffman MD IM US PROCEDURES Final Result * (ABNORMAL) Comprehensive Metabolic Panel, Fasting (03/24/2025 10:30 AM EDT) Sodium 139 135 - 145 mmol/L [facility] Potassium 4.3 3.3 - 5.1 mmol/L [facility] Chloride 109(H) 96 - 108 mmol/L [facility] Carbon Dioxide 23 22 - 29 mmol/L [facility] Anion Gap 11(L) 12 - 20 [facility] Urea Nitrogen (BUN) 13 9 - 16 mg/dL [facility] Creatinine, Serum 0.85 0.5 - 1.4 mg/dL [facility] Estimated Glomerular Filt Rate >60 [facility] Comment:Chronic Kidney Disea se: Estimated GFR < 60 mL/min/1.41u8Efwbbn Kidney Disease: Estimated GFR < 15 mL/min/1.73m2 Glucose Fasting 97 60 - 99 mg/dL [facility] Calcium 9.5 8.4 - 10.2 mg/dL [facility] Bilirubin, Total 0.6 0.0 - 1.0 mg/dL [facility] Aspartate Amino Transferase 34(H) 5 - 31 U/L [facility] Alanine Aminotransferase 26 0 - 31 U/L [facility] Total Protein 7.2 6.5 - 8.0 g/dL [facility] Albumin Level 4.2 3.5 - 5.0 g/dL [facility] Alkaline Phosphatase 88 39 - 117 U/L [facility] 03/24/2025 10:3 0 AM EDT 03/24/2025 2:37 PM EDT us Generic External Data Provider LAB BLOOD ORDERAB LES Final Result [facility] [address] [place] [phone] * POCT HGB A1C (11/20/2024 3:31 PM EDT) Hemoglobin A1C 5.9 4.0 - 6.0 % QC Media Lot # [id number] Lot# Expiration Date Blood 11/20/2024 3:31 PM EDT us Ebenezer Acuña MD POINT OF CARE TEST ENTER/ED IT ORDERABLES Final Result * ThinPrep Imaging Pap and HPV mRNA E6/E7 (03/17/2024 10:00 AM EDT) HPV nRNA E6/E7 Not Detected Not Detected [facility] Comment:Methodology: Transcr iption-Mediated AmplificationThis assay detects E6/E7 viral messenger RNA (mRNA) from 14high-risk HPV types (16,18,31,33,35,39,45,51,52,56,58,59,66,68).Cervical sources are required for HPV testing.If a vaginal source from a patient who has had atotal hysterectomy with removal of cervix wassubmitted, please contact the testing laboratoryfor alternative testing options.For additional information, please refer [email or web address](This link if provided for information/educational purposes only.)THIS TEST WAS PERFORMED AT:[facility] [address] [phone] ALBERTS MD SOURCE: SEE NOTE [facility] Comment:None given Report Status: [facility] Clinical Information: SEE NOTE [facility] Comment:None given LMP: SEE NOTE [facility] Comment:NONE GIVEN Prev. PAP: SEE [facility] Comment:NONE GIVEN Prev. BX: SEE NOTE [facility] Comment:NONE GIVEN Statement Of Adequacy: SEE NOTE [facility] Comment:SATISFACTORY FOR JUDSON LUATION General Categorization: [facility] Interpretation/Result: SEE NOTE [facility] Comment:Cytology Results: Ne gative for intraepitheliallesion or malignancy.Atrophic pattern; predominantly parabasal cells Cytology Comment SEE NOTE [facility] Comment:This Pap test has be en evaluated with computerassisted technology. Golf Club Weigher: SEE NOTE [facility] Comment:DMM, CT(ASCP)CT scre ening location: [place] [address] Review [employer] Weigher: [facility] Pathologist [facility] PAP Infection [facility] See Note SEE NOTE [facility] Comment:EXPLANATORY NOTE:The Pap is a [...] AM EDT 03/17/2024 2:30 PM EDT Narrative [facility] - 03/20/2024 2:55 PM EDT SEE SCANNED RESULTS IN EMR us Ashlee Meza MD LAB PATHOLOGY ORDERABLES Erika rich Result [facility] [address] [place] [phone] * BI Mammogram Screening Tomosynthesis Bilateral (01/21/2024 11:36 AM EDT) Anatomical Region Laterality Modality Breast Bilateral Mammography 01/21/2024 11:3 6 AM EDT Narrative 02/19/2024 11:23 PM EDT [facility] [address] [place] [address] Mammography Report Signed Patient: Abilio Olivares MR#: [id number] 74 : 1970 Acct:[id number] Age/Sex: 53 / F ADM Date: 01/21/24 Loc: HO.MAMMO Attending Dr: Ashlee Meza MD Ordering Physician: Ashlee Meza MD Results: 2Beni gn Findings Date of Service: 01/21/24 Follow Up: 1 Year From Orig inal Mammogram Procedure(s): MM tomosynthesis screening BI Accession Number(s): [id number] cc: Ashlee Meza MD EXAMINATION: MM SCREENING [...] in OV> 02/19/24 2319 DD/ 1136 TD/TT: Temperature Regulator Pyrometer: Procedure Note Donotuseinterpreter, Image - 02/19/2024 [facility] [address] [place] [address] Mammography Report Signed Patient: Abilio OlivaresMR#: [id number] 73 : 1970Acct:[id number] Age/Sex: 53 / FADM Date: 01/21/24 Loc: HO.MAMMO Attending Dr: Ashlee Meza MD Ordering Physician: Ashlee Meza MDResults: 2Beni gn Findings Date of Service: 01/21/24Follow Up: 1 Year From Orig ina Mammogram Procedure(s): MM tomosynthesis screening BI Accession Number(s): [id number] cc: Ashlee Meza MD EXAMINATION: MM SCREENING [...] in OV> 02/19/24 2319 DD/ 1136 TD/TT: Temperature Regulator Pyrometer: Ashlee Meza MD IMG BI PROCEDURES Edited Resu lt - Final * Hepatitis C Ab (10/03/2022 6:48 AM EST) Hepatitis C Antibody Nonreactive Nonreactive [facility] Comment:Antibodies to HCV no t detected; does not exclude early acuteHCV infection. 10/03/2022 6:48 AM EST 10/03/2022 6:48 AM EST [facility] External Provider LAB BLO OD ORDERABLES Final Result [facility] [address] [place] [phone] [phone] * HIV Ab/Ag ([facility]) (10/03/2022 6:48 AM EST) HIV AB/AG Nonreactive Nonreactive [facility] Comment:HIV-1 p24 Ag and/or HIV-1/HIV-2 Ab not detected.A test result that is nonreactive does not exclude thepossibility of exposure to or infection with HIV-1 and/orHIV-2. Nonreactive results in this assay for individualswith prior exposure to HIV-1 and/or HIV-2 may be due toantigen and antibody levels that are below the limit ofdetection of this assay.[employer] HIV Ag/Ab Combo assay result andsupplemental assay results should be interpreted inconjunction with the patient's clinical presentation,history and other laboratory results. If the results areinconsistent with clinical evidence, additional testing issuggested to confirm the result. 10/03/2022 6:48 AM EST 10/03/2022 6:48 AM EST [facility] External Provider LAB BLO OD ORDERABLES Final Result [facility] [address] [place] [address] [phone] * Colonoscopy (09/20/2020) Colonoscopy Normal Normal Narrative Kaia Miranda - 09/20/2020 Recommended 5 year follow up Historical Provider HEALTH MAINTENANCE Edited Result - Final from Last 3 Months or Most Recently Relevant to Health Maintenance Insurance [facility] [employer] Care Teams Body Shop Supervisor Relationship Specialty Start Date End Date Moragn Curran MD [address] [place] [phone] PCP - General Internal Medicine 08/18/24
--- OUTSIDE RECORDS SUMMARY | 2025-04-14 06:09 | XMS_ITS | Encounter Summary ---
Author Organization [employer] [facility] Address [address] [facility] 7t [place] [address] Care Team Providers Care Bad Work Gatherer Name Role Phone Ashlee Meza MD Primary Care Provider Morgan Curran MD Primary Care Prov ider Encounter Details Date Type Department Care Team (Late st Contact Info) Description 09/14/2022 Orders Only [facility] [address] [place] [address] Adriana Brock MD [address] [place] [address] Hypothyroidism, unspecified type (Primary Dx) Social History [...] Free T4 1.16 0.32 - 4.0 uIU/mL [facility] 2022 8:28 AM EDT 2022 8:28 AM EDT [facility] External Provider LAB BLO OD ORDERABLES Final Result Performing Organization Address [facility] Co de Phone Number [facility] [address] [place] [phone] * Hepatitis??D Virus (HDV) Antibody, Total (10/03/2022 6:48 AM EST) Hepatitis D Antibody, Total NEGATIVE [facility] Comment:REFERENCE RANGE: NEG ATIVE INTERPRETIVE [...] and its analyticalperformance characteristics have been determinedby [employer]. It has not been cleared orapproved by FDA. This assay has been validatedpursuant to the CLIA regulations and is used forclinical purposes.THIS TEST WAS PERFORMED AT:[facility] [id number] [place] [address]AWOXQKARLEY OROZCO MD,PHD,LYNN 10/03/2022 6:48 AM EST 10/03/2022 6:48 AM EST [facility] External Provider LAB BLO OD ORDERABLES Final Result Performing Organization Address City/[facility]/ZIP Co de Phone Number [facility] [address] [place] [address] [phone] * Hepatitis B Core??Antibody (IgM) (10/03/2022 6:48 AM EST) Pathologist [facility] [place] Hepatitis B Core Antibody IgM NON-REACTI VE NON-REACT KIM [facility] Comment:THIS TEST WAS PERFOR MED AT:[facility] [address] [id number] ALBERTS MD 10/03/2022 6:48 AM EST 10/03/2022 6:48 AM EST [facility] External Provider LAB BLO OD ORDERABLES Final Result Performing Organization Address [facility] Co de Phone Number [facility] [address] [place] [address] [phone] * (ABNORMAL) Hepatitis B Virus DNA, Quantitative, Real-Time PCR (10/03/2022 6:48 AM EST) Pathologist [facility] [place] Hepatitis B Viral DNA Qn - cp 2.83(A) NOT DETECTED Log IU/mL [facility] Comment:This test was perfor med using [employer].Reportable Range: 10 IU/mL to 1,000,000,000 IU/mL.(1.00 Log IU/mL to 9.00 Log IU/mL).The analytical performance characteristics of this assayhave been determined by [employer]. Themodifications have not been cleared or approved by theA. This assay has been validated pursuant to the CLIAregulations and is used for clinical purposes.THIS TEST WAS PERFORMED AT:[facility] [address] [id number] ALBERTS MD Hepatitis B Viral DNA Qn-IU/mL 683(A) NOT DETECTED IU/mL [facility] 10/03/2022 6:48 AM EST 10/03/2022 6:48 AM EST [facility] External Provider LAB BLO OD ORDERABLES Final Result Performing Organization Address City/[facility] Co de Phone Number [facility] [address] [place] [address] [phone] * (ABNORMAL) Hepatitis B Surface Antigen with Reflex Confirmation (10/03/2022 6:48 AM EST) Hepatitis B Surface Ag Confirmed Pos(A) Negative [facility] Comment:RESULTS OF CALLED TO AND READ BACK BY AT 1126 BY WENCESLAO.Results of HBSAG called to and read back byon 10/05/22 at 1134 by WENCESLAO. 10/03/2022 6:48 AM EST 10/03/2022 6:48 AM EST [facility] External Provider LAB BLO OD ORDERABLES Final Result Performing Organization Address [facility] Co de Phone Number [facility] [address] [place] [address] [phone] * HIV Ab/Ag (GA DPH) (10/03/2022 6:48 AM EST) HIV AB/AG Nonreactive Nonreactive [facility] Comment:HIV-1 p24 Ag and/or HIV-1/HIV-2 Ab not detected.A test result that is nonreactive does not exclude thepossibility of exposure to or infection with HIV-1 and/orHIV-2. Nonreactive results in this assay for individualswith prior exposure to HIV-1 and/or HIV-2 may be due toantigen and antibody levels that are below the limit ofdetection of this assay.The [employer] HIV Ag/Ab Combo assay result andsupplemental assay results should be interpreted inconjunction with the patient's clinical presentation,history and other laboratory results. If the results areinconsistent with clinical evidence, additional testing issuggested to confirm the result. 10/03/2022 6:48 AM EST 10/03/2022 6:48 AM EST [facility] External Provider LAB BLO OD ORDERABLES Final Result Performing Organization Address [facility] de Phone Number [facility] [address] [place] [phone] * Hepatitis C Ab (10/03/2022 6:48 AM EST) Hepatitis C Antibody Nonreactive Nonreactive [facility] Comment:Antibodies to HCV no t detected; does not exclude early acuteHCV infection. 10/03/2022 6:48 AM EST 10/03/2022 6:48 AM EST [facility] External Provider LAB BLO OD ORDERABLES Final Result Performing Organization Address [facility] [address] [place] [phone] * Hepatitis B Surface Antibody, Qualitative (10/03/2022 6:48 AM EST) ~Hepatitis B Surface Antibody NONREACTIVE Nonreactive [facility] Comment:Nonreactive: < 8.00 mIU/mL 10/03/2022 6:48 AM EST 10/03/2022 6:48 AM EST [facility] External Provider LAB BLO OD ORDERABLES Final Result Performing Organization Address [facility] [address] [place] [phone] * Albumin (10/03/2022 6:48 AM EST) Albumin Level 4.1 3.5 - 5.0 g/dL [facility] 10/03/2022 6:48 AM EST 10/03/2022 6:48 AM EST [facility] External Provider LAB BLO OD ORDERABLES Final Result Performing Organization Address [facility] de Phone Number [facility] [address] [place] [phone] * ALT (10/03/2022 6:48 AM EST) Alanine Aminotransferase 24 0 - 31 U/L [facility] 10/03/2022 6:48 AM EST 10/03/2022 6:48 AM EST [facility] External Provider LAB BLO OD ORDERABLES Final Result Performing Organization Address City/[facility]/ZIP Co de Phone Number [facility] [address] [place] [phone] * AST (10/03/2022 6:48 AM EST) Aspartate Amino Transferase 22 5 - 31 U/L [facility] 10/03/2022 6:48 AM EST 10/03/2022 6:48 AM EST [facility] External Provider LAB BLO OD ORDERABLES Final Result Performing Organization Address [facility]/ZIP Co de Phone Number [facility] [address] [place] [phone] * Bilirubin, Total (10/03/2022 6:48 AM EST) Bilirubin, Total 0.3 0.0 - 1.0 mg/dL [facility] 10/03/2022 6:48 AM EST 10/03/2022 6:48 AM EST [facility] External Provider LAB BLO OD ORDERABLES Final Result Performing Organization Address [facility] Co de Phone Number [facility] [address] [place] [phone] * Glucose, Random (10/03/2022 6:48 AM EST) Glucose 113 60 - 115 mg/dL [facility] 10/03/2022 6:48 AM EST 10/03/2022 6:48 AM EST [facility] External Provider LAB BLO OD ORDERABLES Final Result Performing Organization Address [facility] Co de Phone Number [facility] [address] [place] [phone] * Creatinine, Serum (10/03/2022 6:48 AM EST) Creatinine, Serum 0.86 0.5 - 1.4 mg/dL [facility] Estimated Glomerular Filt Rate >60 [facility] Comment:NOTE: For -Am erican individuals, multiply the result by 1.210.Chronic Kidney Disease: Estimated GFR < 60 mL/min/1.60z5Gvcwpr Kidney Disease: Estimated GFR < 15 mL/min/1.73m2 10/03/2022 6:48 AM EST 10/03/2022 6:48 AM EST [facility] External Provider LAB BLO OD ORDERABLES Final Result Performing Organization Address [facility] de Phone Number [facility] [address] [place] [phone] * (ABNORMAL) CBC auto differential (10/03/2022 6:48 AM EST) White Blood Count 4.7(L) 4.8 - 10.8 X10*3/uL [facility] Red Blood Count 4.22 4.20 - 5.50 X10*6/uL [facility] Hemoglobin 12.8 12.0 - 16.0 g/dl [facility] Hematocrit 38.2 37.0 - 47.0 % [facility] Mean Corpuscular Volume 90.5 80.0 - 98.0 fL [facility] Mean Corpuscular Hemoglobin 30.3 27.0 - 33.0 pg [facility] Mean Corpuscular HGB Conc 33.5 31.0 - 35.0 g/dl [facility] Red Cell Distribution Width 12.5 11.0 - 16.0 % [facility] Platelet Count 249 160 - 400 X10*3/uL [facility] Mean Platelet Volume 10.4 9.4 - 12.3 fL [facility] Neutrophils Percent Auto 50.8 45 - 73 % [facility] Imm Gran Pct Auto 0.4 0.0 - 0.4 % [facility] Lymphocytes Percent Auto 38.8 20 - 40 % [facility] Monocytes Percent Auto 6.0 2 - 11 % [facility] Eosinophils Percent Auto 3.4 0 - 4 % [facility] Basophils Percent Auto 0.6 0 - 2 % [facility] NRBC Pct Auto 0.0 0.0 - 0.2 /100WBC [facility] Neutrophils Absolute Auto 2.4 2.0 - 8.3 x10*3/uL [facility] Imm Gran Abs Auto 0.02 0.00 - 0.03 X10*3/uL [facility] Lymphocytes Absolute Auto 1.8 1.2 - 4.9 X10*3/uL [facility] Monocytes Absolute Auto 0.3 0.1 - 1.2 X10*3/uL [facility] Eosinophils Absolute Auto 0.2 0.0 - 0.4 X10*3/uL [facility] Basophils Absolute Auto 0.0 0.0 - 0.2 X10*3/uL [facility] NRBC Abs Auto 0.000 0.0 - 0.012 X10*3/uL [facility] 10/03/2022 6:48 AM EST 10/03/2022 6:48 AM EST us [facility] External Provider LAB BLO OD ORDERABLES Final Result [facility] [address] [place] [phone] documented in this encounter Visit Diagnoses Diagnosis Hypothyroidism, unspecified type- Primary documented in this encounter Care Teams Bad Work Gatherer Relationship Specialty Start Date End Date Ashlee Meza MD [address] [place] [address] PCP - General Family Medicine 03/28/20 08/17/24 Morgan Curran MD [address] [place] [phone] PCP - General Internal Medicine 08/18/24 documented as of this encounter
[2025-04-14 06:10] VITALS: BP 177/93; PULSE 75; RESP 16; TEMP 36.8; O2SAT 98
--- OUTSIDE RECORDS SUMMARY | 2025-04-14 06:12 | XMS_ITS | Encounter Summary ---
Author Organization [employer] Address [address] [place] [address] [place] [address] Care Team Providers Care Dog Licenser Name Role Phone Ashlee Meza MD Primary Care Provider [phone] Morgan Curran MD Primary Care Prov ider Encounter Details Date Type Department Care Team (Late st Contact Info) Description 08/07/2022 Telephone [facility] MED & PEDS [address] [place], [place] [phone] Ashlee Meza MD [address] [place] [address] Social History Tobacco Use Types Packs/Day Years [...] on filedocumented in this encounter Care Teams Dog Licenser Relationship Specialty Start Date End Date Ashlee Meza MD [address] [place] [address] PCP - General Family Medicine 03/28/20 08/17/24 Morgan Curran MD [address] [place] [phone] PCP - General Internal Medicine 08/18/24 documented as of this encounter
--- OUTSIDE RECORDS SUMMARY | 2025-04-14 06:12 | XMS_ITS | Encounter Summary ---
Author Organization [employer] Address [address] [facility] 7t [place] [address] Care Team Providers Care Loom Stop Checker Name Role Phone Morgan Curran MD Primary Care Prov ider Reason for Visit * Reason Onset Date Comments Med Refill 09/15/2024 Encounter Details Date Type Department Care Team (Late st Contact Info) Description 09/15/2024 Refill [facility] MED & PEDS [address] [place] [address] Ashlee Meza MD [address] [place] [address] Spasm of cervical paraspinous muscle Social History [...] documented as of this encounter Care Teams Loom Stop Checker Relationship Specialty Start Date End Date Morgan Curran MD [address] [place] [address] PCP - General Internal Medicine 08/18/24 documented as of this encounter
--- OUTSIDE RECORDS SUMMARY | 2025-04-14 06:12 | XMS_ITS | Encounter Summary ---
Author Organization [employer] Address [address] [facility] 7t [place] [address] Care Team Providers Care Grease And Tallow Pumper Name Role Phone Morgan Curran MD Primary Care Prov ider Encounter Details Date Type Department Care Team (Late st Contact Info) Description 04/14/2025 Orders Only GENERIC EXTERNAL DATA [...] Procedure Name Priority Date/Time Associated Diagnosis Comments URINALYSIS, COMPLETE, WITH REFLEX TO CULTURE Routine 04/14/2025 5:48 AM EDT CBC WITH AUTO DIFFERENTIAL Routine 04/14/2025 5:48 AM EDT documented in this encounter Results * (ABNORMAL) CBC auto differential (04/14/2025 5:48 AM EDT) White Blood Count 5.7 4.8 - 10.8 X10*3/uL [facility] Red Blood Count 4.10(L) 4.20 - 5.50 X10*6/uL [facility] Hemoglobin 12.9 12.0 - 16.0 g/dl [facility] Hematocrit 36.9(L) 37.0 - 47.0 % [facility] Mean Corpuscular Volume 90.0 80.0 - 98.0 fL [facility] Mean Corpuscular Hemoglobin 31.5 27.0 - 33.0 pg [facility] Mean Corpuscular HGB Conc 35.0 31.0 - 35.0 g/dl [facility] Red Cell Distribution Width 12.3 11.0 - 16.0 % [facility] Platelet Count 262 160 - 400 X10*3/uL [facility] Mean Platelet Volume 9.9 9.4 - 12.3 fL [facility] Neutrophils Percent Auto 49.7 45 - 73 % [facility] Imm Gran Pct Auto 0.3 0.0 - 0.4 % [facility] Lymphocytes Percent Auto 39.0 20 - 40 % [facility] Monocytes Percent Auto 6.3 2 - 11 % [facility] Eosinophils Percent Auto 4.0 0 - 4 % [facility] Basophils Percent Auto 0.7 0 - 2 % [facility] NRBC Pct Auto 0.0 0.0 - 0.2 /100WBC [facility] Neutrophils Absolute Auto 2.8 2.0 - 8.3 x10*3/uL [facility] Imm Gran Abs Auto 0.02 0.00 - 0.03 X10*3/uL [facility] Lymphocytes Absolute Auto 2.2 1.2 - 4.9 X10*3/uL [facility] Monocytes Absolute Auto 0.4 0.1 - 1.2 X10*3/uL [facility] Eosinophils Absolute Auto 0.2 0.0 - 0.4 X10*3/uL [facility] Basophils Absolute Auto 0.0 0.0 - 0.2 X10*3/uL [facility] NRBC Abs Auto 0.000 0.0 - 0.012 X10*3/uL [facility] 04/14/2025 5:48 AM EDT 04/14/2025 5:51 AM EDT us [employer] External Data Provider LAB BLOOD ORDERAB LES Final Result [facility] [address] [place] [phone] * (ABNORMAL) Urinalysis, Complete, with Reflex to Culture (04/14/2025 5:48 AM EDT) Color Urine Yellow [facility] Appearance Urine Clear [facility] PH 6.0 5.0 - 9.0 [facility] Glucose Urine UA Negative Negative mg/dL [facility] Urine Blood Negative Negative [facility] Specific [place] - Urine 1.025 1.005 - 1.025 [facility] Urine Protein Trace Neg-Trace mg/dL [facility] Urine Ketones Trace Negative mg/dL [facility] Nitrite Urine Negative Negative [facility] Leukocyte Esterase Urine Small (1+)(A) Negative [facility] RBC Urine 0-2 0 - 2 /HPF [facility] Urine WBC 6-10(A) 0 - 5 /HPF [facility] Urine Squamous Epithelial Cell 0-2 0 - 2 /HPF [facility] Urine Bacteria None Seen None Seen [facility] Hyaline Casts, Urine 0-2 0 - 2 /LPF [facility] 04/14/2025 5:48 AM EDT 04/14/2025 5:51 AM EDT Narrative [facility] - 04/14/2025 6:02 AM EDT Urine, Clean Catch us Generic External Data Provider LAB URINE ORDERAB LES Final Result [facility] [address] [place] [address] [phone] documented in this encounter Visit Diagnoses Not on filedocumented in this encounter Additional Health Concerns Assessment Noted Time PHQ-9 Depression Total Score: 8 05/25/20 24 8:54 AM EDT documented as of this encounter Care Teams Grease And Tallow Pumper Relationship Specialty Start Date End Date Morgan Curran MD [address] [place] [phone] PCP - General Internal Medicine 08/18/24 documented as of this encounter
--- OUTSIDE RECORDS SUMMARY | 2025-04-14 06:12 | XMS_ITS | Encounter Summary ---
Author Organization [employer] Address [address] [facility] 7t [place] [address] Care Team Providers Care Electromechanical Assembly Technician Name Role Phone Ashlee Meza MD Primary Care Provider [phone] Morgan Curran MD Primary Care Prov ider Reason for Visit * Reason Comments Med Refill Encounter Details Date Type Department Care Team ([facility] st Contact Info) Description 08/05/2023 Refill [facility] CH[facility] MED & PEDS [address] [place], [place] [phone] Ashlee Meza MD [address] [place] [address] Social History Tobacco Use Types Packs/Day Years [...] documented as of this encounter Care Teams Electromechanical Assembly Technician Relationship Specialty Start Date End Date Ashlee Meza MD [address] [place] [phone] PCP - General Family Medicine 03/28/20 08/17/24 Morgan Curran MD [address] [place] [phone] PCP - General Internal Medicine 08/18/24 documented as of this encounter
--- OUTSIDE RECORDS SUMMARY | 2025-04-14 06:12 | XMS_ITS | Encounter Summary ---
Author Organization [employer] Address [address] [place] [address] Care Team Providers Care Retail Financial Analyst Name Role Phone Morgan Curran MD Primary Care Prov ider Reason for Visit * Reason Onset Date Comments Nurse Triage 09/15/2024 Encounter Details Date Type Department Care Team (Late st Contact Info) Description 09/15/2024 Telephone [facility] MEDICINE [address] [place] [address] Morgan Curran MD [address] [place] [address] Nurse Triage Social History Tobacco Use Types [...] called back, requesting an appointment, given [facility] appt tomorrow. Future Appointments Date Time Provider Department Center 09/16/2024 2:20 PM [facility] SAME DAY CARE [facility] Insurance verified as active per Real Time Eligibility in [facility]. * Telephone Encounter - Farrah Valdivia [...] documented as of this encounter Care Teams Retail Financial Analyst Relationship Specialty Start Date End Date Morgan Curran MD [address] [place] [phone] PCP - General Internal Medicine 08/18/24 documented as of this encounter
--- OUTSIDE RECORDS SUMMARY | 2025-04-14 06:12 | XMS_ITS | Encounter Summary ---
Author Organization [employer] Address [address] [facility] 7t [place] [address] Care Team Providers Care Humanities Department Chair Name Role Phone Ashlee Meza MD Primary Care Provider [phone] Morgan Curran MD Primary Care Prov ider Reason for Visit * Reason Comments Med Refill Encounter Details Date Type Department Care Team ([facility] st Contact Info) Description 03/12/2024 Refill [facility] MED & PEDS [address] [place] [address] Ashlee Meza MD [address] [place] [address] Social History Tobacco Use Types Packs/Day Years [...] documented as of this encounter Care Teams Humanities Department Chair Relationship Specialty Start Date End Date Ashlee Meza MD [address] [place] [phone] PCP - General Family Medicine 03/28/20 08/17/24 Morgan Curran MD [address] [place] [phone] PCP - General Internal Medicine 08/18/24 documented as of this encounter
[2025-04-14 06:13] LABS: Alanine Aminotransferase 32 U/L (0-31); Albumin Level 4.2 g/dL (3.5-5.0); Alkaline Phosphatase 86 U/L (39-117); Anion Gap 10 (12-20); Aspartate Amino Transferase 31 U/L (5-31); Blood Urea Nitrogen 13 mg/dL (9-16); Calcium 9.1 mg/dL (8.4-10.2); Carbon Dioxide 23 mmol/L (22-29); Chloride 110 mmol/L (96-108); Creatinine Clr Calc Pharmacy 49.1; Estimated Glomerular Filt Rate 53; Lipase 43 U/L (8-78); Potassium 3.4 mmol/L (3.3-5.1); Sodium 140 mmol/L (135-145); Total Protein 7.2 g/dL (6.5-8.0)
--- OUTSIDE RECORDS SUMMARY | 2025-04-14 06:13 | XMS_ITS | Encounter Summary ---
Author Organization [employer] Address [address] [place] [address] Care Team Providers Care Photostat Operator Name Role Phone Morgan Curran MD Primary Care Prov ider Reason for Visit * Reason Onset Date Comments Nurse Triage 09/23/2024 Encounter Details Date Type Department Care Team ([facility] st Contact Info) Description 09/23/2024 Telephone [facility] CHC MED & PEDS [address] [place], [place] [phone] Morgan Curran MD [address] [place] [address] Nurse Triage Social History Tobacco Use Types [...] the past 12 months, has t he [email or web address], gas, oil or water [employer] threatened to shut off services in [...] EST Triage call with [facility] [place] [id number] Alberto Pt reports abdominal pain, above umbilicus for last few days. Pt reports one episode of diarrhea yesterday but, nothing more. Neg for vomiting, fever or urinary symptoms. Pt reports this pain comes and goes but, is not ending. Pt is not . ASK apt in [facility] today at 320p. Pt agrees [...] documented as of this encounter Care Teams Photostat Operator Relationship Specialty Start Date End Date Morgan Curran MD [address] [place] [phone] PCP - General Internal Medicine 08/18/24 documented as of this encounter
--- OUTSIDE RECORDS SUMMARY | 2025-04-14 06:13 | XMS_ITS | Encounter Summary ---
Author Organization [employer] Address [address] [facility] 7t [place] [address] Care Team Providers Care Vehicle Fuel Systems Converter Name Role Phone Morgan Curran MD Primary Care Prov ider Reason for Visit * Reason Comments Med Refill Encounter Details Date Type Department Care Team ([facility] st Contact Info) Description 02/25/2025 Refill [facility] CHC MED & PEDS [address] [place] [address] Ashlee Meza MD [address] [place] [address] Social History Tobacco Use Types Packs/Day Years [...] documented as of this encounter Care Teams Vehicle Fuel Systems Converter Relationship Specialty Start Date End Date Morgan Curran MD [address] [place] [phone] PCP - General Internal Medicine 08/18/24 documented as of this encounter
--- OUTSIDE RECORDS SUMMARY | 2025-04-14 06:14 | XMS_ITS | Encounter Summary ---
Author Organization [employer] Address 75 [facility] 7t [place] [address] Care Team Providers Care Heating And Ventilating Worker Name Role Phone Ashlee Meza MD Primary Care Provider [phone] Morgan Curran MD Primary Care Prov ider Reason for Visit * Reason Onset Date Comments Nurse Triage 08/12/2024 Encounter Details Date Type Department Care Team (Late st Contact Info) Description 08/12/2024 Telephone [facility] MEDICINE [address] [place] [address] Ashlee Meza MD [address] [place] [address] Nurse Triage Social History Tobacco Use Types [...] the past 12 months, has t he [employer], gas, oil or water [employer] threatened to shut off services in your [...] 08/12/2024 3:04 PM EST Triage call [place] [facility] [place] [id number]. Pt reports can speak Serbian. Triage continued in syriac at this time. Pt reports frequency , [...] The caller accepted this outcome. Contact pt [phone] documented in this encounter Plan of Treatment Not on file documented as of this encounter Visit Diagnoses Not on filedocumented in this encounter Additional Health Concerns Assessment Noted Time PHQ-9 Depression Total Score: 8 05/25/20 24 8:54 AM EDT documented as of this encounter Care Teams Heating And Ventilating Worker Relationship Specialty Start Date End Date Ashlee Meza MD [address] [place] [address] PCP - General Family Medicine 03/28/20 08/17/24 Morgan Curran MD [address] [place] [address] PCP - General Internal Medicine 08/18/24 documented as of this encounter
--- OUTSIDE RECORDS SUMMARY | 2025-04-14 06:14 | XMS_ITS | Encounter Summary ---
Author Organization [employer] Address 75 [facility] 7t [place] [address] Care Team Providers Care Nba Player Name Role Phone Ashlee Meza MD Primary Care Provider [phone] Morgan Curran MD Primary Care Prov ider Reason for Visit * Reason Comments Med Refill Encounter Details Date Type Department Care Team ([facility] Contact Info) Description 05/21/2023 Refill [facility] [address] [place] [address] Ashlee Meza MD [address] [place] [address] Social History Tobacco Use Types Packs/Day Years [...] documented as of this encounter Care Teams Nba Player Relationship Specialty Start Date End Date Ashlee Meza MD [address] [place] [id number] PCP - General Family Medicine 03/28/20 08/17/24 Morgan Curran MD [address] [place] [id number] PCP - General Internal Medicine 08/18/24 documented as of this encounter
--- OUTSIDE RECORDS SUMMARY | 2025-04-14 06:14 | XMS_ITS | Encounter Summary ---
Author Organization [employer] Address 75 [facility] 7t [place] [address] Care Team Providers Care Pool Hall Inspector Name Role Phone Morgan Curran MD Primary Care Prov ider Encounter Details Date Type Department Care Team (Late st Contact Info) Description 02/19/2025 Results Follow-Up [facility] MEDICINE [address] [place], [place] [phone] Sonya Isaacs, ANP [address] [place] [address] TSH W/Reflex to FT4 Social History Tobacco [...] documented as of this encounter Care Teams Pool Hall Inspector Relationship Specialty Start Date End Date Morgan Curran MD [address] [place] [id number] PCP - General Internal Medicine 08/18/24 documented as of this encounter
--- OUTSIDE RECORDS SUMMARY | 2025-04-14 06:15 | XMS_ITS | Encounter Summary ---
Author Organization [employer] Address [address] [address] Care Team Providers Care Financial Institution President Name Role Phone Morgan Curran MD Primary Care Prov ider Reason for Visit * Reason Onset Date Comments Med Refill 03/30/2025 Encounter Details Date Type Department Care Team (Late st Contact Info) Description 03/30/2025 Refill [facility] MED & PEDS [address] [place], [place] [phone] Morgan Curran MD [address] [place] [address] Spasm of cervical paraspinous muscle Social History [...] documented as of this encounter Care Teams Financial Institution President Relationship Specialty Start Date End Date Morgan Curran MD [address] [place] [id number] PCP - General Internal Medicine 08/18/24 documented as of this encounter
--- OUTSIDE RECORDS SUMMARY | 2025-04-14 06:15 | XMS_ITS | Encounter Summary ---
Author Organization [employer] [facility] Address [address] [place] [address] [place] [address] Care Team Providers Care Physical Plant Manager Name Role Phone Morgan Curran MD Primary Care Prov ider Reason for Referral * Consultation (Routine) - Closed Specialty Diagnoses / Procedures Referred By Contyris schrader Referred To Contact Otolaryngology Diagnoses Unilateral subjective nonpulsatile tinnitus without hearing loss, otoscopic finding, neurologic deficit, or head trauma Ebenezer Acuña MD [address] [place] [address] Phone: tel: fax: [facility] [address] Phone: tel: fax: Referral ID Status Reason Start Date Expiration Date V isits Requested Visits Authorized [id number] Closed Specialty Services Required 12/29/2024 12/29/2025 1 1 Encounter Details Date Type Department Care Team (Late st Contact Info) Description 12/29/2024 Orders Only [facility] MED & PEDS [address] [place] [address] Ebenezer Acuña MD [address] [place] [address] Unilateral subjective nonpulsatile tinnitus without hearing loss, [...] documented as of this encounter Care Teams Physical Plant Manager Relationship Specialty Start Date End Date Morgan Curran MD [address] [place] [phone] PCP - General Internal Medicine 08/18/24 documented as of this encounter
--- OUTSIDE RECORDS SUMMARY | 2025-04-14 06:15 | XMS_ITS | Encounter Summary ---
Author Organization [employer] Address [address] [place] [address] Care Team Providers Care Research Asst Name Role Phone Morgan Curran MD Primary Care Prov ider Reason for Visit * Reason Onset Date Comments Nurse Triage 11/20/2024 Encounter Details Date Type Department Care Team (Late st Contact Info) Description 11/20/2024 Telephone [facility] MEDICINE [address] [place] [address] Morgan Curran MD [address] [place] [address] Nurse Triage Social History Tobacco Use Types [...] 11/20/2024 9:34 AM EDT Triage call with [facility] [place] [id number] Pt reports a buzzing sound in left ear started 2 days ago. Pt also has sx of sneezing, eyes irritated, dizziness. Neg for pain or loss of hearing. Sound is constant. This does interfere with normal activities. ASK apt in [facility] @ 240pm 11/20/24. Pt agrees with disposition [...] documented as of this encounter Care Teams Research Asst Relationship Specialty Start Date End Date Morgan Curran MD [address] [place] [id number] PCP - General Internal Medicine 08/18/24 documented as of this encounter
--- OUTSIDE RECORDS SUMMARY | 2025-04-14 06:16 | XMS_ITS | Encounter Summary ---
Author Organization [employer] Address 75 [facility] 7t [place] [address] Care Team Providers Care Shank Burnisher Name Role Phone Morgan Curran MD Primary Care Prov ider Encounter Details Date Type Department Care Team (Late st Contact Info) Description 03/25/2025 Results Follow-Up [facility] MEDICINE [address] [place], [place] [phone] Sonya Isaacs, ANP [address] [place] [address] T4, Free Social History Tobacco Use Types [...] documented as of this encounter Care Teams Shank Burnisher Relationship Specialty Start Date End Date Morgan Curran MD [address] [place] [address] PCP - General Internal Medicine 08/18/24 documented as of this encounter
--- NOTE | 2025-04-14 06:49 | ED_ITS ---
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 No fevers or chills no hematuria dysuria hematemesis or hematochezia reported. Related Data Home Medications ?Medication ?Instructions ?Recorded ?Confirmed albuterol sulfate 90 mcg/actuation 2 puff inhalation Q 6H PRN 02/14/21 10/18/23 aerosol inhaler cetirizine 10 mg tablet 10 mg PO DAILY PRN 02/14/21 10/18/23 fluticasone propionate 110 1 puff inhalation BID 02/1410/18/23 mcg/actuation HFA aerosol inhaler (Flovent HFA) amlodipine 5 mg tablet 5 mg PO QAM 11/09/21 4 montelukast 10 mg tablet 10 mg PO QPM 11/09/21 clonazepam 1 mg tablet 1 mg PO anxiety 11/07/23 fluticasone furoate 100 1 inh inhalation QAM 4 mcg/actuation blister powder for inhalation (Arnuity Ellipta) fluticasone propionate 50 1 spray intranasal BID 11/06 mcg/actuation nasal spray,suspension levothyroxine 50 mcg tablet 50 mcg PO QAM 11/07/23 pantoprazole 40 mg tablet,delayed 40 mg PO QAM indiges tion 11/07/23 release paroxetine HCl 20 mg tablet 20 mg PO QAM 11/07/23 topiramate 25 mg tablet 25 mg PO Q12H 11/07/23 Previous Rx's ?Medication ?Instructions ?Recorded hydroxyzine HCl 25 mg tablet 25 mg PO TID PRN anxiety #20 tabs 12/02/20 dicyclomine 10 mg capsule 10 mg PO TID 30 days #90 cap s 11/07/23 simethicone 125 mg chewable tablet 125 mg PO TID-QID P RN abdominal 04/06/24 distention #90 ea hyoscyamine sulfate 0.125 mg tablet 0.125 mg PO QID [place] N dyspepsia #14 09/24/24 tabs ondansetron 4 mg disintegrating 4 mg PO Q8H PRN nausea and 04/14/25 tablet vomiting #4 tabs sucralfate 1 gram tablet (Carafate) 1 g PO Q6H 7 days #28 tabs 04/14/25 Allergies Allergy/AdvReac Type Severity Reaction Status Date / Time aspirin (ASPIRIN) Allergy Severe SWELLING Verified 04/14/25 05:16 ibuprofen (From Motrin) Allergy Mild SWELLING Verified 04/14/25 05:16 lactose Allergy Mild Diarrhea Uncoded 09/29/24 13:56 Review of Systems Constitutional: Reports as per [facility] Past Medical History Medical History Hepatitis B Hypothyroidism History of back pain Anemia Hx of migraines Anxiety Depression Seasonal allergies Asthma History of palpitations HTN (hypertension) History of colon polyps Thyroid condition Tubular adenoma Acid reflux Surgical History History of esophagogastroduodenoscopy (EGD) History of tubal ligation History of nasal septoplasty Hx of bilateral breast reduction surgery History of colonoscopy Family History Family History Father Family history of high blood pressure Hx of type 1 diabetes mellitus Mother No problems noted. Social History Social History Household Members: None Alcohol intake: never Patient Tobacco Use Status: Never used Tobacco Smoked in Last 30 Days: No Use of substances other than those prescribed or required for medical reasons: No Advance Directives: No Advance Directives Information Provided: Yes Physical Exam ED Vital Signs: Vital Signs - 24 hr 04/14/25 05:16 04/14/25 06:10 04/14/25 07:58 Temperature 96.9 F 98.3 F 97.8 F Pulse Rate 78 75 69 Respiratory Rate 16 16 18 Blood Pressure 177/86 H 177/93 H 175/83 H Pulse Oximetry 97 98 92 Oxygen Delivery Method Room Air Room Air Room Air BMI result Body Mass Index 23.9 Const Other: * Gen: ?Overall well-appearing patient in some discomfort * HEENT: PERRLA, EOMI, dry oral mucosa * Neck: Supple, no LAD * CV: RRR, no obvious murmurs appreciated * Resp: ?No wheezing rales rhonchi no stridor moving air well * Abd: ?Bowel sounds are present, epigastric tenderness no rebound no rigidity, negative Holt's sign * MSK: FROM, strength 5/5 all extremities * Skin: Warm, dry, intact, * Neuro: ?Alert and oriented x3, moving upper and lower extremities symmetrically, no obvious facial asymmetry noted Medical Decision Making Medical Decision Making [facility] Narrative: 7:02 AM 04/14/2025 (Dr. Kraig Underwood): Patient is presenting with nausea, dry retching, fairly benign abdominal exam except for epigastric tenderness, has had history of right upper quadrant in the past and has had HIDA scan and ultrasounds without any evidence for cholecystitis, we will check her LFTs and lipase, we will medicate for pain, we will evaluate for dehydration electrolyte derangements and if improves anticipating discharge 9:08 AM 04/14/2025 (Dr. Kraig Underwood): Patient re-evaluated, she has had fluids, Reglan, Benadryl as well as antiemetics I would initially, discussed follow up with the PCP, endoscopy, continues to have minimal epigastric discomfort but blood work vital signs are reassuring Differential Diagnosis Differential Diagnoses: The differential diagnosis associated with the presentation includes (Cholecystitis, pancreatitis, hepatitis, gastritis, cholangitis, choledocholithiasis, SBO, ) Admission/Observation Consideration of admission/observation: Escalation of care including admission/observation considered Lab Data [facility] Lab Attestation statement: I reviewed the patient's lab results. 04/14/25 05:48 04/14/25 05:48 Labs: Lab Results 04/14/25 Range/Units 05:48 WBC 5.7 (4.8-10.8) X10*3/uL RBC 4.10 L (4.20-5.50) X10*6/uL Hgb 12.9 (12.0-16.0) g/dl Hct 36.9 L (37.0-47.0) % MCV 90.0 (80.0-98.0) fL MCH 31.5 (27.0-33.0) pg MCHC 35.0 (31.0-35.0) g/dl RDW 12.3 (11.0-16.0) % Plt Count 262 (160-400) X10*3/uL MPV 9.9 (9.4-12.3) fL Immature Gran % (Auto) 0.3 (0.0-0.4) % Neut % (Auto) 49.7 (45-73) % Lymph % (Auto) 39.0 (20-40) % Campbell % (Auto) 6.3 (2-11) % Eos % (Auto) 4.0 (0-4) % Baso % (Auto) 0.7 (0-2) % Lymph # (Auto) 2.2 (1.2-4.9) X10*3/uL Campbell # (Auto) 0.4 (0.1-1.2) X10*3/uL Eos # (Auto) 0.2 (0.0-0.4) X10*3/uL Baso # (Auto) 0.0 (0.0-0.2) X10*3/uL Abs Immat Gran (auto) 0.02 (0.00-0.03) X10*3/uL Absolute Neuts (auto) 2.8 (2.0-8.3) x10*3/uL Absolute Nucleated RBC 0.000 (0.0-0.012) X10*3/uL Nucleated RBC % (auto) 0.0 (0.0-0.2) /100WBC Sodium 140 (135-145) mmol/L Potassium 3.4 D (3.3-5.1) mmol/L Chloride 110 H (96-108) mmol/L Carbon Dioxide 23 (22-29) mmol/L Anion Gap 10 L (12-20) BUN 13 (9-16) mg/dL Creatinine 1.07 (0.5-1.4) mg/dL Estim Creat Clear Calc 49.1 Estimated GFR 53 Random Glucose 137 H (60-115) mg/dL Calcium 9.1 (8.4-10.2) mg/dL Total Bilirubin 0.3 (0.0-1.0) mg/dL AST 31 (5-31) U/L ALT 32 H (0-31) U/L Alkaline Phosphatase 86 (39-117) U/L Total Protein 7.2 (6.5-8.0) g/dL Albumin 4.2 (3.5-5.0) g/dL Lipase 43 (8-78) U/L Urine Color Yellow Urine Appearance Clear Urine pH 6.0 (5.0-9.0) Ur Specific Colora 1.025 (1.005-1.025) Urine Protein Trace (Neg-Trace) mg/dL Urine Glucose (UA) Negative (Negative) mg/dL Urine Ketones Trace (Negative) mg/dL Urine Blood Negative (Negative) Urine Nitrite Negative (Negative) Ur Leukocyte Esterase Small (1+) H (Negative) Urine RBC 0-2 (0-2) /HPF Urine WBC 6-10 H (0-5) /HPF Ur Squamous Epith Cells 0-2 (0-2) /HPF Urine Bacteria None Seen (None Seen) Hyaline Casts 0-2 (0-2) /LPF Prescription Management I considered prescription management with: Pain Medication Medications Administered Discontinued Medications Generic Name Dose Route Start Last Admin Trade Name Nay PRN Reason Stop Dose Admin Diazepam 2.5 mg 04/14/25 06:49 04/14/25 07:22 Diazepam 10 Mg/2 Ml Cartridge IVPUSH 04/14/25 06:50 2.5 mg STAT STA Administration Diphenhydramine HCl 25 mg 04/14/25 08:04 04/14/25 08:17 Diphenhydramine Hcl 50 Mg/Ml Vial IVPUSH 04/14/25 08:05 25 mg ONCE ONE Administration Famotidine 20 mg 04/14/25 06:49 04/14/25 07:22 Famotidine/Pf 20 Mg/2 Ml Vial IVPUSH 04/14/25 06:50 20 mg ONCE ONE Administration Sodium Chloride 1,000 mls @ 999 mls/hr 04/14/25 07:00 04/14/25 08:43 Ns IV 04/14/25 08:00 Infused .Q1H1M LOU Infusion Ketorolac Tromethamine 15 mg 04/14/25 06:49 04/14/25 07:22 Ketorolac Tromethamine 15 Mg/Ml Vial IVPUSH 04/14/25 06:50 15 mg ONCE ONE Administration Lidocaine HCl 15 ml 04/14/25 06:49 04/14/25 07:22 Lidocaine Hcl Viscous 2 % 15 Ml Solution PO 04/14/25 06:50 15 ml ONCE ONE Administration Metoclopramide HCl 10 mg 04/14/25 08:04 04/14/25 08:19 Metoclopramide Hcl 10 Mg/2 Ml Vial IVPUSH 04/14/25 08:05 10 mg ONCE ONE Administration Ondansetron HCl 4 mg 04/14/25 06:49 04/14/25 07:29 Ondansetron Hcl 4 Mg/2 Ml Vial IVPUSH 04/14/25 06:50 4 mg ONCE ONE Administration Sucralfate 1 gm 04/14/25 06:49 04/14/25 07:22 Sucralfate Oral Suspension 1 Gm/10 Ml Oral.Susp PO 04/14/25 06:50 1 gm ONCE ONE Administration Critical Care Time Critical Care Time Critical Care Time: Yes Total Critical Care Time: 35 Attestation: Time is exclusive of separately billable procedures. Time includes: direct patient care, patient reassessment, coordination of patient care, interpretation of data (laboratory data, pulse oximetry, arterial blood gases and chest xrays), review of patient's medical records, medical consultation and documentation of patient care. Procedures excluded from critical care time: central intravenous line placement and electrocardiography. Discharge Plan Discharge Clinical Impression: Abdominal pain, epigastric, Nausea & vomiting Patient Disposition: Home, Self-Care Additional Instructions: Continue using Carafate 1 pill 20 minutes before any meals for the next 1 week, Zofran/ondansetron 4 mg every 6-8 hours needed for nausea and vomiting, stick to BRAT diet ( please look it up on line ), follow up with the PCP, any other issues concerns come back to the ER, your workup has been reassuring Prescriptions: New sucralfate [Carafate] 1 gram tablet 1 g PO Q6H 7 Days Qty: 28 0RF ondansetron 4 mg tablet,disintegrating 4 mg PO Q8H PRN (Reason: nausea and vomiting) Qty: 4 0RF No Action simethicone 125 mg tablet,chewable 125 mg PO TID-QID PRN (Reason: abdominal distention) Qty: 90 2RF hydroxyzine HCl 25 mg tablet 25 mg PO TID PRN (Reason: anxiety) Qty: 20 0RF hyoscyamine sulfate 0.125 mg tablet 0.125 mg PO QID PRN (Reason: dyspepsia) Qty: 14 0RF cetirizine 10 mg tablet 10 mg PO DAILY PRN albuterol sulfate 90 mcg/actuation HFA aerosol inhaler 2 puff inhalation Q6H PRN Flovent HFA 110 mcg/actuation HFA aerosol inhaler 1 puff inhalation BID montelukast 10 mg tablet 10 mg PO QPM amlodipine 5 mg tablet 5 mg PO QAM topiramate 25 mg tablet 25 mg PO Q12H clonazepam 1 mg tablet 1 mg PO pantoprazole 40 mg tablet,delayed release (DR/EC) 40 mg PO QAM levothyroxine 50 mcg tablet 50 mcg PO QAM fluticasone propionate 50 mcg/actuation spray,suspension 1 spray intranasal BID Arnuity Ellipta 100 mcg/actuation blister with device 1 inh inhalation QAM paroxetine HCl 20 mg tablet 20 mg PO QAM dicyclomine 10 mg capsule 10 mg PO TID 30 Days Qty: 90 0RF Rx Instructions: Take 1 QD- may increase up to tid Print Language: Indian
[2025-04-14] MEDS: Lidocaine HCl Viscous 2 % 15 ML SOLUTION PO (07:22)
[2025-04-14] MEDS: Sucralfate Oral Suspension 1 GM/10 ML ORAL.SUSP PO (07:22)
[2025-04-14] MEDS: diazePAM 10 MG/2 ML CARTRIDGE 2.5 MG IVPUSH (07:22)
[2025-04-14 07:58] VITALS: BP 175/83; PULSE 69; RESP 18; TEMP 36.6; O2SAT 92
[2025-04-14 09:17] VITALS: BP 175/83; PULSE 69; RESP 18; TEMP 36.6; O2SAT 92
[2025-04-14] MEDS: PHENobarb/Hyoscy/Atropine/Scop 10 ML ELIXIR PO (09:32)
== END 2025-04-14 09:41 | disposition home or self-care (01) ==
PROVIDERS: Emergency Provider Emergency Medicine; PCP Internal Medicine
DX: R10.13 Epigastric pain (principal); R11.2 Nausea with vomiting, unspecified; Z79.899 Other long term (current) drug therapy
CPT/HCPCS: 36415; 80053; 81001; 83690; 85025; 87086; 96361; 96374; 96375; 99284; J1200; J1308; J1885; J2405; J2765; J3360

== ENCOUNTER 2025-05-17 09:34 | Outpatient (AMB) | payer MEDICAID, SELFPAY ==
--- NOTE | 2025-05-17 09:36 | MHC.OFFVIS ---
Vital Signs 05/17/25 09:40 Height 5 ft 7 in Weight 146 lb 11.355 oz BMI 23.0 BP 146/73 H Pulse 90 Intake Visit Reasons: RUQ [facility] Patient Intake Note: Ashley presents in the office as a follow up [facility] patient for RUQ. CC: states she was given another med for her stomach but not sure which one it is. Network Pricing Consultant Required: No Allergies aspirin (ASPIRIN) Allergy (Severe, Verified 05/17/25 09:41) SWELLING ibuprofen (From Motrin) Allergy (Mild, Verified 05/17/25 09:41) SWELLING lactose Allergy (Mild, Uncoded 05/17/25 09:41) Diarrhea HPI Comments Details: 54 y.o F with PMH of chronic HBV who is here for abd pain. Used to be [facility] pt. Was seen in ER in Mar for severe abd pain assoc with N/V. No diarrhea. No fevers or chills. Pain lasted for a few days. Sucralfate helped. No further episodes since then but has had intermittent abd pain x years. Not assoc with any specific food or movement. Not assoc with bowel habits. In terms of chronic HBV, low viremia at most recent check. Will obtain complete HBV serology and US abd as below. Pt also worried about her high BP despite being on two meds. Will screen for hyperaldo. [facility] Medical History Hepatitis B Hypothyroidism History of back pain Anemia Hx of migraines Anxiety Depression Seasonal allergies Asthma History of palpitations HTN (hypertension) History of colon polyps Thyroid condition Tubular adenoma Acid reflux Surgical History History of esophagogastroduodenoscopy (EGD) History of tubal ligation History of nasal septoplasty Hx of bilateral breast reduction surgery History of colonoscopy Family History Father Family history of high blood pressure Hx of type 1 diabetes mellitus Mother No problems noted. Social History Household Members: None Alcohol intake: never Patient Tobacco Use Status: Never used Tobacco Review of Systems Const All systems reviewed & are unremarkable except as noted in HPI and below Physical Exam Exam Exam: No apparent distress Nonicteric Abdomen soft, nondistended Alert and oriented x3, normal gait Vital Signs: Last Vital Signs Pulse 90 05/17/25 09:40 BP 146/73 H 05/17/25 09:40 BMI result Body Mass Index 23.0 Assessment & Plan Assessment & Plan (1) Hepatitis B: Comment: Follows with Infectious Disease Dr. Wetzel Code(s): B19.10 - Unspecified viral hepatitis B without hepatic coma Category: Medical Plan: Management: 1. Monitoring/treatment indication -Check Hep B suface Ag and Ab, hep B e Ag and Ab, HBV DNA and genotype -If her HBV DNA remains less than 2000 with normal ALT (cut off 25 for women and 35 for men per AASLD), antiviral treatment will not indicated. Will cont with monitoring with q6 monthly ALT and HBV DNA and q1y HBsAg. -She was advised that if either of these increase, we will shorten surveillance intervals to q3m and may even need a biopsy contigent on overall clinical course. If both the DNA and ALT increase will be a candidate for treatment. -Check ultrasound RUQ with doppler and elastography 2. Screening for coinfection -Hep D ordered -Hep C already checked and negative -HIV already checked and negative 3. Candidacy for HCC screening If clinical assessment and elastography does not show cirrhosis, patient does not meet criteria; as she does not have any of the following factors: -elevated ALT and high viral load more than 20,000 -family history of HCC -/black males > 40y of age - females >50y of age -Long duration of disease (>40years for males & >50years for females) -[HDV coinfection - pending] 4. Prevention of reactivation: Patient was also counseled on the importance of reaching out our office if she were to start any immunosuppressive therapy including long-term steroids. 5. Prevention of transmission: -Advised to have household and sexual contacts screened and vaccinated. -Barrier protection during sexual intercourse. -To not share toothbrushes, razor, injection equipment including diabetes/insulin kit. -To not donate organs or blood. -She was reassured that there is no restriction to sharing food, utensils, kissing. -Counseling in : Not applicable. (2) HTN (hypertension): Code(s): I10 - Essential (primary) hypertension Category: Medical Plan: Direct tamara and renin ordered. pt aware to get these done as fasting AM labs. (3) Abdominal pain: Code(s): R10.9 - Unspecified abdominal pain Category: Medical Plan: Has episodic intermittent severe abd pain with N/V. Has been checked multiple times for symptomatic cholelithiasis. other Ddx include PUD, MCAS, abd migraine, endometriosis, dyspepsia. Plan: - Cont PPI - Barium swallow with UGIS - serum tryptase - Indication of egd contingent on results Plan follow up after testing Orders: Orders FL upper GI w Ba Swallow Today K21.9 - Gastro-esophageal reflux disease without esophagitis Aldosterone Today I10 - Essential (primary) hypertension Renin Today I10 - Essential (primary) hypertension Hepatitis B Surface Antigen Today B19.10 - Unspecified viral hepatitis B without hepatic coma Hepatitis Delta Antibody Today B19.10 - Unspecified viral hepatitis B without hepatic coma US abdomen comp w elastography Today B19.10 - Unspecified viral hepatitis B without hepatic coma Tryptase Today R10.9 - Unspecified abdominal pain Hepatitis B Viral DNA Qn Today B19.10 - Unspecified viral hepatitis B without hepatic coma Hepatitis B Surface Antibody Today B19.10 - Unspecified viral hepatitis B without hepatic coma Hepatitis BE Antibody Today B19.10 - Unspecified viral hepatitis B without hepatic coma Hepatitis BE Antigen Today B19.10 - Unspecified viral hepatitis B without hepatic coma Medications: New calcium carb-mag hydrox-simeth 1,200 mg-270 mg -80 mg/10 mL (Mylanta Coat-Cool) 10 mL PO TID PRN 355 mL 0RF dyspepsia 14 days Discontinued sucralfate (Carafate) Discontinued Reason: Duplicate 1 g PO Q6H 7 days 28 tabs 0RF Coding Level of Care Code Est Pt Level 5 (41484) Complex EM visit Add On G2211 Diagnoses Hepatitis B B19.10 HTN (hypertension) I10 Abdominal pain R10.9
[2025-05-17 09:40] VITALS: BP 146/73; PULSE 90; BMI 23.0
--- OUTSIDE RECORDS SUMMARY | 2025-05-17 10:44 | XMS_ITS | Encounter Summary ---
Author Organization [employer] Address [address] [place] [address] Care Team Providers Care Customer Service Coordinator Name Role Phone Ashlee Meza MD Primary Care Provider [phone] Morgan Curran MD Primary Care Prov ider Gregorio Everett RN Unavailable [phone] Analisa Patino Unavailable Reason for Visit * Reason Comments Med Refill Encounter Details Date Type Department Care Team ([facility] Contact Info) Description 03/12/2024 Refill [facility] MED & PEDS [address] [place], [place] [phone] Ashlee Meza MD [address] [place] [address] Social History Tobacco Use Types Packs/Day Years Used Date Smoking Tobacco: Never Passive Smoke Exposure: Never Smokeless Tobacco: Never Alcohol Use Standard Drinks/Week Comments Never 0 (1 standard drink = 0.6 oz pur e alcohol) Depression Answer Date Recorded Patient Health Questionnaire-9 Score 6 04/22/2023 Housing Stability Answer Date Recorded What is your housing situation today? I have howardmikki paez 05/13/[address] you [...] Care Team (Late st Contact Info) Description 06/29/2025 8:30 AM EST Telemedicine [facility] MED & PEDS [address] [place] [address] Morgan Curran MD [address] [place] [address] documented as of this encounter Visit Diagnoses Not on filedocumented in this encounter Additional Health Concerns Assessment Noted Time PHQ-9 Depression Total Score: 6 04/22/20 23 9:18 AM EDT documented as of this encounter Care Teams Customer Service Coordinator Relationship Specialty Start Date End Date Ashlee Meza MD [address] [place] [address] PCP - General Family Medicine 03/28/20 08/17/24 Morgan Curran MD [address] [place], [place] [phone] PCP - General Internal Medicine 08/18/24 Gregorio Everett, DEVIN [address] [place] [address] Registered Nurse Family Medicine 04/15/25 Analisa Patino 04/15/25 documented as of this encounter
--- OUTSIDE RECORDS SUMMARY | 2025-05-17 10:44 | XMS_ITS | Encounter Summary ---
Author Organization [employer] [facility] Address [address] [place] [address] Care Team Providers Care Grand Scribe Name Role Phone Ashlee eMza MD Primary Care Provider [phone] Morgan Curran MD Primary Care Prov ider Gregorio Everett RN Unavailable [phone] Analisa Patino Unavailable Reason for Visit * Reason Comments Med Refill Encounter Details Date Type Department Care Team (Late Contact Info) Description 09/14/2022 Refill [facility] MEDICINE [address] [place] [address] Cornell Bucio FNP Anxiety (Primary Dx) Social [...] Department Care Team (Late Contact Info) Description 06/29/2025 8:30 AM EST Telemedicine [facility] CH[facility] MED & PEDS [address] [place] [address] Morgan Curran MD [address] [place] [address] documented as of this encounter Visit Diagnoses Diagnosis Anxiety- Primary Anxiety state, unspecified documented in this encounter Care Teams Grand Scribe Relationship Specialty Start Date End Date Ashlee Meza MD [address] [place] [address] PCP - General Family Medicine 03/28/20 08/17/24 Morgan Curran MD [address] [place] [address] PCP - General Internal Medicine 08/18/24 Gregorio Everett, RN [address] [place] [address] Registered Nurse Family Medicine 04/15/25 Analisa Patino 04/15/25 documented as of this encounter
--- OUTSIDE RECORDS SUMMARY | 2025-05-17 10:44 | XMS_ITS | Encounter Summary ---
Author Organization [employer] [facility] Address [address] [facility] [address] [place] [address] Care Team Providers Care Cloud Services Architect Name Role Phone Ashlee Meza MD Primary Care Provider [phone] Morgan Curran MD Primary Care Prov ider Gregorio Everett RN Unavailable [phone] Analisa Patino Unavailable Reason for Visit * Reason Onset Date Comments triage 12/04/2022 Encounter Details Date Type Department Care Team ([facility] st Contact Info) Description 12/04/2022 Telephone [facility] CHC MED & PEDS [address] [place], [place] [phone] Ashlee Meza MD [address] [place] [address] triage Social History Tobacco Use Types Packs/Day [...] 12/04/2022 11:13 AM EDT Triage call with [employer] ID [id number] Pt reports for two days now, itchy [...] Info) Description 06/29/2025 8:30 AM EST Telemedicine [facility] CH[facility] MED & PEDS [address] [place] [address] Morgan Curran MD [address] [place] [address] documented as of this encounter Visit Diagnoses Not on filedocumented in this encounter Additional Health Concerns Assessment Noted Time PHQ-9 Depression Total Score: 5 10/31/19 23 9:17 AM EDT documented as of this encounter Care Teams Cloud Services Architect Relationship Specialty Start Date End Date Ashlee Meza MD [address] [place] [address] PCP - General Family Medicine 03/28/20 08/17/24 Morgan Curran MD [address] [place] [address] PCP - General Internal Medicine 08/18/24 Gregorio Everett, RN [address] [place] [address] Registered Nurse Family Medicine 04/15/25 Analisa Patino 04/15/25 documented as of this encounter
--- OUTSIDE RECORDS SUMMARY | 2025-05-17 10:44 | XMS_ITS | Encounter Summary ---
Author Organization [employer] Address [address] [facility] [address] [place] [address] Care Team Providers Care Investment Associate Name Role Phone Morgan Curran MD Primary Care Prov ider Gregorio Everett RN Unavailable [phone] Analisa Patino Unavailable Encounter Details Date Type Department Care Team (Late st Contact Info) Description 12/03/2024 Orders Only [facility] CH[facility] MED & PEDS [address] [place], [place] [phone] Ebenezer Acuña MD [address] [place], [place] [phone] Unilateral subjective nonpulsatile tinnitus without hearing loss, [...] Upcoming Encounters Date Type Department Care Team ([facility] st Contact Info) Description 06/29/2025 8:30 AM EST Telemedicine [facility] MED & PEDS [address] [place] [address] Morgan Curran MD [address] [place] [address] documented as of this encounter Procedures Procedure Name Priority Date/Time Associated Diagnosis Comments MR BRAIN WO CONTRAST Routine 12/29/2024 10:33 AM EDT documented in this encounter Results * MR Brain w/o Contrast (12/29/2024 10:33 AM EDT) Anatomical Region Laterality Modality Brain Magnetic Resonan ce 12/29/2024 10:3 3 AM EDT Narrative 12/29/2024 11:49 AM EDT [place] [id number] Magnetic Resonance Report Signed Patient: Ashley Olivares MR#: [id number] 73 : 1970 Acct:[id number] Age/Sex: 54 / F ADM Date: 12/29/24 Loc: HO.MRI Attending Dr: Ebenezer Acuña MD Ordering Physician: Ebenezer Acuña MD Date of Service: 12/29/24 Procedure(s): MR head/brain wo con Accession Number(s): [id number] cc: Ebenezer Acuña MD; Morgan Curran MD [...] 12/29/24 1146 DD/ 1033 TD/TT: 12/29/24 1104 Sole Splitter: Procedure Note Ricardoter, Image - 12/29/2024 [place] [id number] Magnetic Resonance Report Signed Patient: Ashley OlivaresMR#: [id number] 73 : 1970Acct:[id number] Age/Sex: 54 / FADM Date: 12/29/24 Loc: HO.MRI Attending Dr: Ebenezer Acuña MD Ordering Physician: Ebenezer Acuña MD Date of Service: 12/29/24 Procedure(s): MR head/brain wo con Accession Number(s): [id number] cc: Ebenezer Acuña MD; Morgan Curran MD [...] 12/29/24 1146 DD/ 1033 TD/TT: 12/29/24 1104 Sole Splitter: us Ebenezer Acuña MD IMG MRI PROCEDURES Final Re sult documented in this encounter Visit Diagnoses Diagnosis Unilateral subjective nonpulsatile tinnitus without hearing loss, otoscopic finding, neurologic deficit, or head trauma- Primary documented in this encounter Additional Health Concerns Assessment Noted Time PHQ-9 Depression Total Score: 8 05/25/20 24 8:54 AM EDT documented as of this encounter Care Teams Investment Associate Relationship Specialty Start Date End Date MaradiagaMorgan Perera MD [address] [place] [address] PCP - General Internal Medicine 08/18/24 Gregorio Everett, RN [address] [place] [address] Registered Nurse Family Medicine 04/15/25 Analisa Patino 04/15/25 documented as of this encounter
--- OUTSIDE RECORDS SUMMARY | 2025-05-17 10:44 | XMS_ITS | Clinical Summary ---
Author Organization [employer] Address [address] [facility] [address] [place] [address] Care Team Providers Care Quality Associate Name Role Phone Morgan Curran MD Primary Care Prov ider Gregorio Everett RN Unavailable [phone] Analisa Patino Unavailable Allergies Active Allergy Reactions Criticality Noted Date [...] NEEDED 90 mL 3 04/02/20 24 Active Blood Pressure kit 1 Units Once per day. 1 kit 06/10/20 24 Active esomeprazole (NexIUM) [address] capsule Take 1 capsule (20 mg) by mouth before breakfast. Do not open capsule. 30 capsule 11 09/16/20 25 02/19/2 026 Active fluticasone (Flonase) 50 MCG/ACT nasal spray Administer 1-2 sprays into each nostril Once per day. Shake gently. Before first use, prime pump. After use, clean tip and replace cap. 16 g 11/12/19 026 Active hydroCHLOROthia zide 12.5 MG tabletIndicatio ns:Primary hypertension Take 1 tablet (12.5 mg) by mouth Once per day. 30 tablet 11/21/19 Active Additional Information Patient not taking.Reported on 05/11/2025 loratadine (Claritin) 10 MG tabletIndicatio ns:Allergic rhinitis, unspecified seasonality, unspecified trigger TAKE ONE TABLET BY MOUTH EVERY DAY FOR ALLERGIES 90 tablet 1 11/21/19 25 Active Acetaminophen Extra Strength 500 MG tabletIndicatio ns:Spasm of cervical paraspinous muscle TAKE ONE TABLET EVERY 6 HOURS NEEDED FOR PAIN 50 tablet 3 12/12/19 25 Active albuterol (Ventolin HFA) 108 (90 Base) MCG/ACT inhalerIndicati ons:Moderate persistent asthma, unspecified whether complicated INHALE TWO PUFFS EVERY 4 HOURS NEEDED FOR WHEEZING 18 g 12/16/19 25 Active montelukast (Singulair) 10 MG tablet Take 1 tablet (10 mg) by mouth at bedtime. 90 tablet 12/24/19 026 Active amLODIPine (Norvasc) 5 MG tablet [...] mouth before breakfast. 90 tablet 1 02/20/20 026 Active linaCLOtide (Linzess) 145 MCG capsule Take 1 capsule (145 mcg) by mouth before breakfast. Do not crush or chew. 90 capsule 02/24/20 026 Active clonazePAM (KlonoPIN) 1 MG tabletIndicatio ns:Mixed anxiety and depressive disorder Take 1 tablet (1 mg) by mouth if needed in the morning and at bedtime for anxiety. 56 tablet 04/06/20 25 025 Active famotidine (Pepcid) 20 MG tablet Take 1 tablet (20 mg) by mouth Once per day. 90 tablet 3 04/20/20 25 026 Active Arnuity Ellipta 100 MCG/ACT inhaler INHALE 1 PUFF EVERY MORNING. RINSE MOUTH AFTER USE 30 each 5 04/27/20 25 Active Arnuity Ellipta 100 MCG/ACT inhaler INHALE ONE PUFF EVERY MORNING, RINSE MOUTH AFTER USE 30 each 5 06/08/20 24 025 Discontinued Active Problems Problem Noted Date Diagnosed Date [...] as needed. Hypertension 01/24/2023 Assessment & Plan (04/20/2025 12:40 PM EDT): Stable at home, this morning was 116/78, she has WCS, no changes will be made Assessment & Plan (02/23/2025 4:10 PM EDT): [...] Provider Department Center 09/23/2023 9:45 AM [facility]/23/2023 1:00 PM Nargis Miner PharmD [facility] 10/14/2023 10:00 AM Ashlee Meza MD [facility] Assessment & Plan (03/15/2023 9:20 AM EDT): [...] disease) 3 Hypothyroidism 06/27/2022 Assessment & Plan (04/20/2025 12:41 PM EDT): She has been off treatment for almost a month, told to restart therapy, will follow up in 2 months with new labs Assessment & Plan (02/23/2025 4:10 PM EDT): [...] Asthma 05/13/2012 Chronic type B viral hepatitis (CMS/HCC) 012 Deficiency of syuwzdd-1-ebgjyynwx dehydrogenase 05/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 Mixed anxiety and depressive disorder [...] Encounters Date Type Department Care Team Description 05/17/2025 Plan of Care Documentation [address] [id number] 05/15/2025 Refill [facility] [address] [place] [address] Ebenezer Acuña MD Allergic rhinitis, unspecified seasonality, unspecified trigger 05/11/2025 Patient Outreach [facility] [address] [place] [address] Morgan Curran MD Care Management (C3CM- Initial assessment/enrollme nt) 05/10/2025 Patient Outreach [address] [address] Morgan Curran MD Care Coordination (C3 CM-[facility] Analisa Patino telephone call outreach) 04/29/2025 Patient Outreach [address] [address] Morgan Curran MD 04/26/2025 Refill [facility] [address] [place] [address] Ashlee Meza MD 04/20/2025 11:15 AM EDT Office Visit [facility] [address] [place] [address] Morgan Curran MD Hypothyroidism, unspecified type (Primary Dx); Dietary counseling; Exercise counseling; Bipolar affective disorder in remission ([facility]); Mild intermittent asthma without complication; Primary hypertension; Gastroesophageal reflux disease without esophagitis 04/20/2025 Travel 04/16/2025 Telephone [facility] [address] [place] [address] Morgan Curran MD Nurse Triage 04/15/2025 Patient Outreach [address] [address] Morgan Curran MD Care Coordination ([facility]3 [facility] Analisa Patino telephone call outreach) 04/15/2025 Patient Outreach [address] [address] Morgan Curran MD 04/15/2025 Patient Outreach [facility] [address] [place] [phone] Morgan Curran MD 04/15/2025 Patient Outreach [facility] [address] [place] [phone] Morgan Curran MD 04/14/2025 Orders Only GENERIC EXTERNAL DATA DEPARTMENT Provider, Generic External Data 04/01/2025 Orders Only GENERIC EXTERNAL DATA DEPARTMENT Provider, Generic External Data 03/30/2025 Refill [facility] [address] [place] [address] Morgan Curran MD Spasm of cervical paraspinous muscle 03/30/2025 Refill [facility] [address] [place] [address] Morgan Curran MD Mixed anxiety and depressive disorder 03/25/2025 Results Follow-Up [address] [address] Sonya Isaacs ANP TSH W/Reflex to FT4 03/25/2025 Results Follow-Up [address] [address] Sonya Isaacs ANP T4, Free 03/24/2025 Orders Only GENERIC EXTERNAL DATA DEPARTMENT Provider, Generic External Data 03/24/2025 Telephone [facility] [address] [place] [address] Morgan Curran MD Change PCP 02/25/2025 Refill [facility] [address] [place] [address] Ashlee Meza MD 02/23/2025 2:30 PM EDT Telemedicine [facility] [address] [place] [address] Morgan Curran MD Left thyroid nodule (Primary Dx); Mixed anxiety and depressive disorder; Primary hypertension; Hypothyroidism, unspecified type; Pelvic pressure in female 02/23/2025 Travel 02/19/2025 Orders Only [facility] [address] [place] [phone] Sonya Isaacs ANP Hypothyroidism, unspecified type (Primary Dx) 02/19/2025 Results Follow-Up [facility] [address] [place] [address] Sonya Isaacs, ERNESTO TSH W/Reflex to FT4 02/19/2025 Orders Only [facility] [address] [place] [address] Morgan Curran MD from Last 3 Months Immunizations Immunization Administration [...] Answer Date Recorded Patient Health Questionnaire-9 Score 12 05/11/2025 Patient Health Questionnaire-9 Score 12 05/11/2025 Last PHQ-9: Questionnaire Data Not on file [...] before you got money to buy more: Often true 04/15/2025 Within the past 12 months,th e food you bought just didn't last and you didn't have enough money to get more: Often true Transportation Answer Date Recorded In the past 12 months, has l ack of transportation kept you from medical appts, meetings, work or from getting things needed for daily living? Yes, it has kept me from medical appointments or getting medications. 04/15/2025 Intimate Partner Violence Answer Date R ecorded Within the last year, have y ou been afraid of your partner or ex-partner? 2 05/11/2025 Within the last year, have y ou been humiliated or emotionally abused in other ways by your partner or ex-partner? 2 Within the last year, have y ou been kicked, hit, slapped, or otherwise physically hurt by your partner or ex-partner? 2 05/11/2025 Within the last year, have y ou been raped or forced to have any kind of sexual activity by your partner or ex-partner? 2 05/11/2025 Utilities Answer Date Recorded In the past 12 months, has t he electric, gas, oil or water company threatened to shut off services in your home? No 05/13/2023 Depression Answer Date Recorded Patient Health Questionnaire-2 Score 4 05/11/2025 Internet Access Answer Date Recorded Internet Access [...] Sign Reading Time Taken Comments Blood Pressure 142/90 04/20/2025 11:13 AM EDT Pulse 72 04/20/2025 11:13 AM EDT Temperature 36.6 C (97.8 F) 04/20/2025 11:13 AM EDT Respiratory Rate 20 04/20/2025 11:13 AM EDT Oxygen Saturation 99% 11/20/2024 2:11 PM EDT Inhaled Oxygen Concentration - - Weight 66.2 kg (146 lb) 04/20/2025 11:13 AM EDT Height 152.4 cm (5') 04/20/2025 11:13 AM EDT Body Mass Index 28.51 04/20/2025 11:13 AM EDT Plan of Treatment Upcoming Encounters Date Type Department Care Team ([facility] st Contact Info) Description 06/29/2025 8:30 AM EST Telemedicine [facility] [address] [place] [address] MaradiagaMorgan Perera MD [address] [place] [address] Health Maintenance Due Date Last Done Comments CT Colonography 1970 FIT DNA/Cologuard 1970 FIT 1970 FOBT 1970 Sigmoidoscopy 1970 Hepatitis B Vaccines (1 of 3 - 19+ 3-dose series) 1988 COVID-19 Vaccine ( - season) 2025 03/15/2021, 02/21/2021, 01/12/2021 Influenza Vaccine (#1) 2025 , 07/01/2022, 05/05/2020, Additional history exists Alcohol/Substance Use Screening 05/25/2025 05/25/2024 Disability Screening 08/12/2025 08/12/2024 Colonoscopy 09/20/2025 09/20/2020 Colorectal Cancer Screening 09/20/2025 Depression Monitoring 11/09/2025 05/11/2025, 025 Diabetes: Hemoglobin A1C 11/20/2025 025, 08/13/2024, 09/13/2022, Additional history exists Tobacco Screening 11/20/2025 11/20/2024 Mammogram 01/20/2026 01/21/2024, 12/28, 05/07/2020, Additional history exists SDOH Screening 04/15/2026 04/15/2025 Pap Smear 03/17/2027 03/17/2024 DTaP/Tdap/Td Vaccines (2 [...] Procedure Name Priority Date/Time Associated Diagnosis Comments LIPASE Routine 04/14/2025 5:48 AM EDT COMPREHENSIVE METABOLIC PANEL Routine 04/14/2025 5:48 AM EDT CBC WITH AUTO DIFFERENTIAL Routine 04/14/2025 5:48 AM EDT URINALYSIS, COMPLETE, WITH REFLEX TO CULTURE Routine 04/14/2025 5:48 AM EDT CULTURE, URINE, ROUTINE Routine 04/14/2025 5:48 AM EDT T4, FREE [...] Routine 11/20/2024 3:31 PM EDT Deficiency of upzdkgs-2-lqpyhjprx dehydrogenase THINPREP IMAGING PAP AND HPV MRNA [...] (04/14/2025 5:48 AM EDT) Color Urine Yellow [facility] Appearance Urine Clear [facility] PH 6.0 5.0 - 9.0 [facility] Glucose Urine UA Negative Negative mg/dL [facility] Urine Blood Negative Negative [facility] Specific Labolt - Urine 1.025 1.005 - 1.025 [facility] Urine Protein Trace Neg-Trace mg/dL [facility] Urine Ketones Trace Negative mg/dL [facility] Nitrite Urine Negative Negative [facility] Leukocyte Esterase Urine Small (1+)(A) Negative [facility] RBC Urine 0-2 0 - 2 /HPF [facility] Urine WBC 6-10(A) 0 - 5 /HPF [facility] Urine Squamous Epithelial Cell 0-2 0 - 2 /HPF [facility] Urine Bacteria None Seen None Seen [facility] Hyaline Casts, Urine 0-2 0 - 2 /LPF [facility] 04/14/2025 5:48 AM EDT 04/14/2025 5:51 AM EDT Narrative [facility] - 04/14/2025 6:02 AM EDT Urine, Clean Catch us Generic External Data Provider LAB URINE ORDERAB LES Final Result [facility] [address] [place] [phone] * (ABNORMAL) CBC auto differential (04/14/2025 5:48 AM EDT) Only the most recent of3 resultswithin the time period is included. White Blood Count 5.7 4.8 - 10.8 X10*3/uL [facility] Red Blood Count 4.10(L) 4.20 - 5.50 X10*6/uL [facility] Hemoglobin 12.9 12.0 - 16.0 g/dl [facility] Hematocrit 36.9(L) 37.0 - 47.0 % [facility] Mean Corpuscular Volume 90.0 80.0 - 98.0 fL [facility] Mean Corpuscular Hemoglobin 31.5 27.0 - 33.0 pg [facility] Mean Corpuscular HGB Conc 35.0 31.0 - 35.0 g/dl [facility] Red Cell Distribution Width 12.3 11.0 - 16.0 % [facility] Platelet Count 262 160 - 400 X10*3/uL [facility] Mean Platelet Volume 9.9 9.4 - 12.3 fL [facility] Neutrophils Percent Auto 49.7 45 - 73 % [facility] Imm Gran Pct Auto 0.3 0.0 - 0.4 % [facility] Lymphocytes Percent Auto 39.0 20 - 40 % [facility] Monocytes Percent Auto 6.3 2 - 11 % [facility] Eosinophils Percent Auto 4.0 0 - 4 % [facility] Basophils Percent Auto 0.7 0 - 2 % [facility] NRBC Pct Auto 0.0 0.0 - 0.2 /100WBC [facility] Neutrophils Absolute Auto 2.8 2.0 - 8.3 x10*3/uL [facility] Imm Gran Abs Auto 0.02 0.00 - 0.03 X10*3/uL [facility] Lymphocytes Absolute Auto 2.2 1.2 - 4.9 X10*3/uL [facility] Monocytes Absolute Auto 0.4 0.1 - 1.2 X10*3/uL [facility] Eosinophils Absolute Auto 0.2 0.0 - 0.4 X10*3/uL [facility] Basophils Absolute Auto 0.0 0.0 - 0.2 X10*3/uL [facility] NRBC Abs Auto 0.000 0.0 - 0.012 X10*3/uL [facility] 04/14/2025 5:48 AM EDT 04/14/2025 5:51 AM EDT Generic External Data Provider LAB BLOOD ORDERAB LES Final Result Performing Organization Address City/[facility]/ZIP Co de Phone Number [facility] [address] [place] [phone] * Culture, Urine, Routine (04/14/2025 5:48 AM EDT) Urine Urine specimen obtained by clean catch procedure / Unknown 04/14/2025 5:48 AM EDT 04/14/2025 6:03 AM EDT Comment:[facility] Narrative [facility] - 04/15/2025 12:18 PM EDT Urine Culture Report Result Urine Culture < 10,000 cfu/ml Specimen Source: Urine clean catch Generic External Data Provider LAB MICROBIOLOGY - GENERAL ORDERABLES Final Result [facility] [address] [place] [address] [phone] * Lipase (04/14/2025 5:48 AM EDT) Lipase 43 8 - 78 U/L [facility] 04/14/2025 5:48 AM EDT 04/14/2025 5:51 AM EDT us Generic External Data Provider LAB BLOOD ORDERAB LES Final Result [facility] [address] [place], [place] [phone] * (ABNORMAL) Comprehensive Metabolic Panel (04/14/2025 5:48 AM EDT) Only the most recent of2 resultswithin the time period is included. Sodium 140 135 - 145 mmol/L [facility] Potassium 3.4 3.3 - 5.1 mmol/L [facility] Chloride 110(H) 96 - 108 mmol/L [facility] Carbon Dioxide 23 22 - 29 mmol/L [facility] Anion Gap 10(L) 12 - 20 [facility] Urea Nitrogen (BUN) 13 9 - 16 mg/dL [facility] Creatinine, Serum 1.07 0.5 - 1.4 mg/dL [facility] Creatinine Clr Calc Pharmacy 49.1 [facility] Comment:Provided height and weight: 160.02 cm,61.235 kg.eGFR (calculated from the MDRD study equation) and eCrCl(calculated from the Cockcroft-Gault equation) are based ondifferent parameters and may not yield comparable results.If eCrCl result is absurd, please check patient'sheight/weight. Estimated Glomerular Filt Rate 53 [facility] Comment:Chronic Kidney Disea se: Estimated GFR < 60 mL/min/1.52s3Wkfvwa Kidney Disease: Estimated GFR < 15 mL/min/1.73m2 Glucose 137(H) 60 - 115 mg/dL [facility] Calcium 9.1 8.4 - 10.2 mg/dL [facility] Bilirubin, Total 0.3 0.0 - 1.0 mg/dL [facility] Aspartate Amino Transferase 31 5 - 31 U/L [facility] Alanine Aminotransferase 32(H) 0 - 31 U/L [facility] Total Protein 7.2 6.5 - 8.0 g/dL [facility] Albumin Level 4.2 3.5 - 5.0 g/dL [facility] Alkaline Phosphatase 86 39 - 117 U/L [facility] 04/14/2025 5:48 AM EDT 04/14/2025 5:51 AM EDT Generic External Data Provider LAB BLOOD ORDERAB LES Final Result Performing Organization Address [facility]/ZIP Co de Phone Number [facility] [address] [place] [phone] * TSH W/Reflex to FT4 (04/01/2025 9:26 AM EDT) Only the most recent of3 resultswithin the time period is included. TSH reflex Free T4 0.48 0.32 - 4.0 uIU/mL [facility] Blood Venous blood specimen / Unknown 04/01/2025 9:26 AM EDT 04/01/2025 1:55 PM EDT Morgan Huffman MD LAB BLOOD ORDERABL ES Final Result Performing Organization Address [facility] Co de Phone Number [facility] [address] [place] [phone] * T4, Free (04/01/2025 9:26 AM EDT) Only the most recent of3 resultswithin the time period is included. Free T4 (Free Thyroxine) 0.86 0.71 - 1.85 ng/dL [facility] 04/01/2025 9:26 AM EDT 04/01/2025 1:57 PM EDT Generic External Data Provider LAB BLOOD ORDERAB LES Final Result Performing Organization Address [facility] Co de Phone Number [facility] [address] [place] [phone] * Glucose (04/01/2025 9:26 AM EDT) Glucose Fasting 99 60 - 99 mg/dL [facility] 04/01/2025 9:26 AM EDT 04/01/2025 1:57 PM EDT Generic External Data Provider LAB BLOOD ORDERAB LES Final Result Performing Organization Address [facility] Co de Phone Number [facility] [address] [place] [phone] * Hepatic Function Panel (04/01/2025 9:26 AM EDT) Only the most recent of2 resultswithin the time period is included. Bilirubin, Direct 0.2 0.0 - 0.5 mg/dL [facility] 04/01/2025 9:26 AM EDT 04/01/2025 1:57 PM EDT Generic External Data Provider LAB BLOOD ORDERAB LES Final Result Performing Organization Address [facility] de Phone Number [facility] [address] [place] [phone] * (ABNORMAL) Lipid Panel, Standard (04/01/2025 9:26 AM EDT) Only the most recent of2 resultswithin the time period is included. Triglycerides 131 <150 mg/dL [facility] Comment:Desirable Triglyceri de: less than 150 mg/dLBorderline High Triglyceride 150-199 mg/dLHigh Triglyceride: 200-499 mg/dLVery High Triglyceride: greater than or equal to 5OO mg/dL Cholesterol 184 <200 mg/dL [facility] Comment:Desirable Cholestero l: less than 200 mg/dLBorderline High Cholesterol: 200-239 mg/dLHigh Cholesterol: greater than 239 mg/dL LDL Cholesterol Calculated 111(H) <100 mg/dL [facility] Comment:Desirable LDL: less than 100 mg/dLNear Optimal/Above Optimal LDL: 110- 129 mg/dLBorderline High LDL: 130-159 mg/dLHigh LDL: 160-189 mg/dLVery High LDL: greater than or equal to 190 mg/dL HDL Cholesterol 47 >40 mg/dL [facility] Comment:Desirable HDL: great er than 40 mg/dL Note: This HDL assay may give artificially low results in patients with liver disease. 04/01/2025 9:26 AM EDT 04/01/2025 1:57 PM EDT us Generic External Data Provider LAB BLOOD ORDERAB LES Final Result Performing Organization Address City/State/[facility] Co de Phone Number [facility] [address] [place] [phone] * US Thyroid (03/25/2025 3:13 PM EDT) Anatomical Region Laterality Modality Head, Neck Ultrasound 03/25/2025 3:13 PM EDT Narrative 03/25/2025 3:43 PM EDT [address] [address] Ultrasound Report Signed Patient: Abilio Olivares MR#: [id number] : 1970 Acct:[id number] Age/Sex: 54 / F ADM Date: 03/25/25 Loc: HO.US Attending Dr: Morgan Huffman MD Ordering Physician: Morgan Curran MD Date of Service: 03/25/25 Procedure(s): US thyroid Accession Number(s): [id number] cc: Morgan Curran MD EXAMINATION: US THYROID [...] 03/25/25 1539 DD/ 1513 TD/TT: 03/25/25 1517 [employer] Room: Procedure Note Donotuseinterpreter, Image - 03/25/2025 [place] [id number] Ultrasound Report Signed Patient: Abilio OlivaresMR#: [id number] : 1970Acct:[id number] Age/Sex: 54 / FADM Date: 03/25/25 Loc: HO.US Attending Dr: Morgan Huffman MD Ordering Physician: Morgan Curran MD Date of Service: 03/25/25 Procedure(s): US thyroid Accession Number(s): [id number] cc: Morgan Curran MD EXAMINATION: US THYROID [...] 03/25/25 1539 DD/ 1513 TD/TT: 03/25/25 1517 [employer] Room: us Morgan Huffman MD [facility] US PROCEDURES Final Result * (ABNORMAL) Comprehensive Metabolic Panel, Fasting (03/24/2025 10:30 AM EDT) Sodium 139 135 - 145 mmol/L [facility] Potassium 4.3 3.3 - 5.1 mmol/L [facility] Chloride 109(H) 96 - 108 mmol/L [facility] Carbon Dioxide 23 22 - 29 mmol/L [facility] Anion Gap 11(L) 12 - 20 [facility] Urea Nitrogen (BUN) 13 9 - 16 mg/dL [facility] Creatinine, Serum 0.85 0.5 - 1.4 mg/dL [facility] Estimated Glomerular Filt Rate >60 [facility] Comment:Chronic Kidney Disea se: Estimated GFR < 60 mL/min/1.88f6Lfwypg Kidney Disease: Estimated GFR < 15 mL/min/1.73m2 Glucose Fasting 97 60 - 99 mg/dL [facility] Calcium 9.5 8.4 - 10.2 mg/dL [facility] Bilirubin, Total 0.6 0.0 - 1.0 mg/dL [facility] Aspartate Amino Transferase 34(H) 5 - 31 U/L [facility] Alanine Aminotransferase 26 0 - 31 U/L [facility] Total Protein 7.2 6.5 - 8.0 g/dL [facility] Albumin Level 4.2 3.5 - 5.0 g/dL [facility] Alkaline Phosphatase 88 39 - 117 U/L [facility] 03/24/2025 10:3 0 AM EDT 03/24/2025 2:37 PM EDT us Generic External Data Provider LAB BLOOD ORDERAB LES Final Result Performing Organization Address City/State/[facility] Co de Phone Number [facility] [address] [place] [phone] * POCT HGB A1C (11/20/2024 3:31 PM EDT) Hemoglobin A1C 5.9 4.0 - 6.0 % QC Media Lot # [id number] Lot# Expiration Date 766 Blood 11/20/2024 3:31 PM EDT us Ebenezer Acuña MD POINT OF CARE TEST ENTER/ED IT ORDERABLES Final Result * [facility] Imaging Pap and HPV mRNA E6/E7 (03/17/2024 10:00 AM EDT) HPV nRNA E6/E7 Not Detected Not Detected [facility] Comment:Methodology: Transcr iption-Mediated AmplificationThis assay detects E6/E7 viral messenger RNA (mRNA) from 14high-risk HPV types (16,18,31,33,35,39,45,51,52,56,58,59,66,68).Cervical sources are required for HPV testing.If a vaginal source from a patient who has had atotal hysterectomy with removal of cervix wassubmitted, please contact the testing laboratoryfor alternative testing options.For additional information, please refer [email or web address](This link if provided for information/educational purposes only.)THIS TEST WAS PERFORMED AT:[facility] [address] [phone] ALBERTS MD SOURCE: SEE NOTE [facility] Comment:None given Report Status: [facility] Clinical Information: SEE NOTE [facility] Comment:None given LMP: SEE NOTE [facility] Comment:NONE GIVEN Prev. PAP: SEE NOTE [facility] Comment:NONE GIVEN Prev. BX: SEE NOTE [facility] Comment:NONE GIVEN Statement Of Adequacy: SEE NOTE [facility] Comment:SATISFACTORY FOR JUDSON LUATION General Categorization: [facility] Interpretation/Result: SEE NOTE [facility] Comment:Cytology Results: Ne gative for intraepitheliallesion or malignancy.Atrophic pattern; predominantly parabasal cells Cytology Comment SEE NOTE [facility] Comment:This Pap test has be en evaluated with computerassisted technology. Blindstitch Machine Operator: SEE NOTE [facility] Comment:DMM, CT(ASCP)CT scre ening location: [address] [address] Review Blindstitch Machine Operator: [facility] Pathologist [facility] PAP Infection [facility] See Note SEE NOTE [facility] Comment:EXPLANATORY NOTE:The Pap is a [...] AM EDT 03/17/2024 2:30 PM EDT Narrative [facility] - 03/20/2024 2:55 PM EDT SEE SCANNED RESULTS IN EMR us Ashlee Meza MD LAB PATHOLOGY ORDERABLES Erika hilario Result Performing Organization Address City/State/[facility] Co de Phone Number [facility] [address] [place] [phone] [phone] * BI Mammogram Screening Tomosynthesis Bilateral (01/21/2024 11:36 AM EDT) Anatomical Region Laterality Modality Breast Bilateral Mammography 01/21/2024 11:3 6 AM EDT Narrative 02/19/2024 11:23 PM EDT [address] [place] [address] Mammography Report Signed Patient: Abilio Olivraes MR#: [id number] : 1970 Acct:[id number] Age/Sex: 53 / F ADM Date: 01/21/24 Loc: HO.MAMMO Attending Dr: Ashlee Meza MD Ordering Physician: Ashlee Meza MD Results: 2Beni gn Findings Date of Service: 01/21/24 Follow Up: 1 Year From [facility] Mammogram Procedure(s): MM tomosynthesis screening BI Accession Number(s): [id number] cc: Ashlee Meza MD EXAMINATION: MM SCREENING [...] in OV> 02/19/24 2319 DD/ 1136 TD/TT: Cutter Banana Room: Procedure Note Donotuseinterpreter, Image - 02/19/2024 [facility] [address] [place] [address] Mammography Report Signed Patient: Abilio OlivaresMR#: [id number] : 1970Acct:[id number] Age/Sex: 53 / FADM Date: 01/21/24 Loc: [place] Attending Dr: Ashlee Meza MD Ordering Physician: Ashlee Meza MDResults: 2Beni gn Findings Date of Service: 01/21/24Follow Up: 1 Year From Orig inal Mammogram Procedure(s): MM tomosynthesis screening BI Accession Number(s): [id number] cc: Ashele Meza MD EXAMINATION: MM SCREENING DIGITAL BREAST [...] by Jennifer Sargent MD in OV> 02/19/24 7859 DD/ 1136 TD/TT: Cutter Banana Room: Ashlee Meza MD IMG BI PROCEDURES Edited Resu lt - Final * Hepatitis C Ab (10/03/2022 6:48 AM EST) Hepatitis C Antibody Nonreactive Nonreactive [facility] Comment:Antibodies to HCV no t detected; does not exclude early acuteHCV infection. 10/03/2022 6:48 AM EST 10/03/2022 6:48 AM EST [facility] External Provider LAB BLO OD ORDERABLES Final Result [facility] [address] [place] [address] [phone] * HIV Ab/Ag ([facility]) (10/03/2022 6:48 AM EST) HIV AB/AG Nonreactive Nonreactive [facility] Comment:HIV-1 p24 Ag and/or HIV-1/HIV-2 Ab not detected.A test result that is nonreactive does not exclude thepossibility of exposure to or infection with HIV-1 and/orHIV-2. Nonreactive results in this assay for individualswith prior exposure to HIV-1 and/or HIV-2 may be due toantigen and antibody levels that are below the limit ofdetection of this assay.[employer] HIV Ag/Ab Combo assay result andsupplemental assay results should be interpreted inconjunction with the patient's clinical presentation,history and other laboratory results. If the results areinconsistent with clinical evidence, additional testing issuggested to confirm the result. 10/03/2022 6:48 AM EST 10/03/2022 6:48 AM EST [facility] External Provider LAB BLO OD ORDERABLES Final Result [facility] [address] [place] [address] [phone] * Hm Colonoscopy (09/20/2020) Colonoscopy Normal Normal Narrative Kaia Miranda - 09/20/2020 Recommended 5 year follow up Historical Provider MD HEALTH MAINTENANCE Edited Result - Final from Last 3 Months or Most Recently Relevant to Health Maintenance Insurance [facility] C[employer] Care Teams Quality Associate Relationship Specialty Start Date End Date Morgan Curran MD [address] [place] [address] PCP - General Internal Medicine 08/18/24 Gregorio Everett, DEVIN [address] [place] [address] Registered Nurse Family Medicine 04/15/25 Analisa Patino 04/15/25
--- OUTSIDE RECORDS SUMMARY | 2025-05-17 10:44 | XMS_ITS | Encounter Summary ---
Author Organization [email or web address] [facility] Address [address] [place] [address] [address] [place] [address] Care Team Providers Care Nuclear Process Engineer Name Role Phone Ashlee Meza MD Primary Care Provider [phone] Morgan Curran MD Primary Care Prov ider Gregorio Everett RN Unavailable [phone] Analisa Patino Unavailable Encounter Details Date Type Department Care Team (Late Contact Info) Description 08/07/2022 Telephone [facility] MED & PEDS [address] [place], [place] [phone] Ashlee Meza MD [address] [place], [place] [phone] Social History Tobacco Use Types Packs/Day Years [...] Info) Description 06/29/2025 8:30 AM EST Telemedicine [facility] MED & PEDS [address] [place], [place] [phone] Morgan Curran MD [address] [place], [place] [phone] documented as of this encounter Visit Diagnoses Not on filedocumented in this encounter Care Teams Nuclear Process Engineer Relationship Specialty Start Date End Date Ashlee Meza MD [address] [place] [address] PCP - General Family Medicine 03/28/20 08/17/24 Morgan Curran MD [address] [place] [address] PCP - General Internal Medicine 08/18/24 Gregorio Everett RN [address] [place] [address] Registered Nurse Family Medicine 04/15/25 Analisa Patino 04/15/25 documented as of this encounter
--- OUTSIDE RECORDS SUMMARY | 2025-05-17 10:44 | XMS_ITS | Encounter Summary ---
Author Organization [employer] Address [address] [facility] 7t [place] [address] Care Team Providers Care Studio Associate Name Role Phone Ashlee Meza MD Primary Care Provider [phone] Morgan Curran MD Primary Care Prov ider Gregorio Everett RN Unavailable [phone] Analisa Patino Unavailable Encounter Details Date Type Department Care Team (Late st Contact Info) Description 09/14/2022 Orders Only [facility] MEDICINE [address] [place] [address] Adriana Brock MD [address] [place] [address] Hypothyroidism, unspecified type (Primary Dx) Social History [...] Info) Description 06/29/2025 8:30 AM EST Telemedicine [facility] MED & PEDS [address] [place] [address] Morgan Curran MD [address] [place] [address] documented as of this encounter Procedures Procedure Name Priority Date/Time Associated Diagnosis Comments TSH W/REFLEX TO FT4 Routine 2022 8 :28 AM EDT Hypothyroidism, unspecified type HEPATITIS C ANTIBODY Routine 10/03/2022 6:48 AM EST Hypothyroidism, unspecified type HIV ANTIBODY/ANTIGEN ([facility]) Routine 10/03/2022 6:48 AM EST Hypothyroidism, unspecified [...] T4 1.16 0.32 - 4.0 uIU/mL [facility] 2022 8:28 AM EDT 2022 8:28 AM EDT [facility] External Provider LAB BLO OD ORDERABLES Final Result [facility] [address] [place] [phone] * Hepatitis??D Virus (HDV) Antibody, Total (10/03/2022 6:48 AM EST) Hepatitis D Antibody, Total NEGATIVE [facility] Comment:REFERENCE RANGE: NEG ATIVE INTERPRETIVE [...] and its analyticalperformance characteristics have been determinedby [employer]. It has not been cleared orapproved by FDA. This assay has been validatedpursuant to the CLIA regulations and is used forclinical purposes.THIS TEST WAS PERFORMED AT:[employer] [id number] [facility] [address]TQPUOKARLEY OROZCO MD,PHD,LYNN 10/03/2022 6:48 AM EST 10/03/2022 6:48 AM EST [facility] External Provider LAB BLO OD ORDERABLES Final Result Performing Organization Address [facility] Co de Phone Number [facility] [address] [place] [phone] * Hepatitis B Core??Antibody (IgM) (10/03/2022 6:48 AM EST) Hepatitis B Core Antibody IgM NON-REACTI VE NON-REACT KIM [facility] Comment:THIS TEST WAS PERFOR MED AT:[employer] [address] [id number] ALBERTS MD 10/03/2022 6:48 AM EST 10/03/2022 6:48 AM EST [facility] External Provider LAB BLO OD ORDERABLES Final Result Performing Organization Address [facility] Phone Number [facility] [address] [place] [phone] * (ABNORMAL) Hepatitis B Virus DNA, Quantitative, Real-Time PCR (10/03/2022 6:48 AM EST) Pathologist [facility] Hepatitis B Viral DNA Qn - cp 2.83(A) NOT DETECTED Log IU/mL [facility] Comment:This test was perfor med using Real-Time Polymerase ChainReaction.Reportable Range: 10 IU/mL to 1,000,000,000 IU/mL.(1.00 Log IU/mL to 9.00 Log IU/mL).The analytical performance characteristics of this assayhave been determined by [employer]. Themodifications have not been cleared or approved by theST[facility]. This assay has been validated pursuant to the CLIAregulations and is used for clinical purposes.THIS TEST WAS PERFORMED AT:[employer] [place] [id number] ALBERTS MD Hepatitis B Viral DNA Qn-IU/mL 683(A) NOT DETECTED IU/mL [facility] 10/03/2022 6:48 AM EST 10/03/2022 6:48 AM EST [facility] External Provider LAB BLO OD ORDERABLES Final Result Performing Organization Address [facility] Co de Phone Number [facility] [address] [place] [phone] * (ABNORMAL) Hepatitis B Surface Antigen with Reflex Confirmation (10/03/2022 6:48 AM EST) Hepatitis B Surface Ag Confirmed Pos(A) Negative [facility] Comment:RESULTS OF CALLED TO AND READ BACK BY AT 1126 BY WENCESLAO.Results of HBSAG called to and read back byon 10/05/22 at 1134 by WENCESLAO. 10/03/2022 6:48 AM EST 10/03/2022 6:48 AM EST [facility] External Provider LAB BLO OD ORDERABLES Final Result Performing Organization Address [facility] de Phone Number [facility] [address] [place] [phone] * HIV Ab/Ag ([facility]) (10/03/2022 6:48 AM EST) HIV AB/AG Nonreactive Nonreactive [facility] Comment:HIV-1 p24 Ag and/or HIV-1/HIV-2 Ab not detected.A test result that is nonreactive does not exclude thepossibility of exposure to or infection with HIV-1 and/orHIV-2. Nonreactive results in this assay for individualswith prior exposure to HIV-1 and/or HIV-2 may be due toantigen and antibody levels that are below the limit ofdetection of this assay.[employer] HIV Ag/Ab Combo assay result andsupplemental assay results should be interpreted inconjunction with the patient's clinical presentation,history and other laboratory results. If the results areinconsistent with clinical evidence, additional testing issuggested to confirm the result. 10/03/2022 6:48 AM EST 10/03/2022 6:48 AM EST [facility] External Provider LAB BLO OD ORDERABLES Final Result Performing Organization Address [facility] Co de Phone Number [facility] [address] [place] [phone] * Hepatitis C Ab (10/03/2022 6:48 AM EST) Pathologist [facility] Hepatitis C Antibody Nonreactive Nonreactive [facility] Comment:Antibodies to HCV no t detected; does not exclude early acuteHCV infection. 10/03/2022 6:48 AM EST 10/03/2022 6:48 AM EST [facility] External Provider LAB BLO OD ORDERABLES Final Result Performing Organization Address [facility] de Phone Number [facility] [address] [place] [phone] * Hepatitis B Surface Antibody, Qualitative (10/03/2022 6:48 AM EST) Pathologist [facility] ~Hepatitis B Surface Antibody NONREACTIVE Nonreactive [facility] Comment:Nonreactive: < 8.00 mIU/mL 10/03/2022 6:48 AM EST 10/03/2022 6:48 AM EST [facility] External Provider LAB BLO OD ORDERABLES Final Result Performing Organization Address [facility] de Phone Number [facility] [address] [place] [phone] * Albumin (10/03/2022 6:48 AM EST) Pathologist [facility] Albumin Level 4.1 3.5 - 5.0 g/dL [facility] 10/03/2022 6:48 AM EST 10/03/2022 6:48 AM EST [facility] External Provider LAB BLO OD ORDERABLES Final Result Performing Organization Address [facility] de Phone Number [facility] [address] [place] [phone] * ALT (10/03/2022 6:48 AM EST) Alanine Aminotransferase 24 0 - 31 U/L [facility] 10/03/2022 6:48 AM EST 10/03/2022 6:48 AM EST [facility] External Provider LAB BLO OD ORDERABLES Final Result Performing Organization Address [facility] Co de Phone Number [facility] [address] [place] [phone] * AST (10/03/2022 6:48 AM EST) Aspartate Amino Transferase 22 5 - 31 U/L [facility] 10/03/2022 6:48 AM EST 10/03/2022 6:48 AM EST [facility] External Provider LAB BLO OD ORDERABLES Final Result Performing Organization Address [facility] de Phone Number [facility] [address] [place] [phone] * Bilirubin, Total (10/03/2022 6:48 AM EST) Bilirubin, Total 0.3 0.0 - 1.0 mg/dL [facility] 10/03/2022 6:48 AM EST 10/03/2022 6:48 AM EST [facility] External Provider LAB BLO OD ORDERABLES Final Result Performing Organization Address [facility] Co de Phone Number [facility] [address] [place] [phone] * Glucose, Random (10/03/2022 6:48 AM EST) Glucose 113 60 - 115 mg/dL [facility] 10/03/2022 6:48 AM EST 10/03/2022 6:48 AM EST [facility] External Provider LAB BLO OD ORDERABLES Final Result Performing Organization Address [facility] Number [facility] [address] [place] [phone] * Creatinine, Serum (10/03/2022 6:48 AM EST) Pathologist [facility] Creatinine, Serum 0.86 0.5 - 1.4 mg/dL [facility] Estimated Glomerular Filt Rate >60 [facility] Comment:NOTE: For -Am erican individuals, multiply the result by 1.210.Chronic Kidney Disease: Estimated GFR < 60 mL/min/[id number] Kidney Disease: Estimated GFR < 15 mL/min/1.73m2 10/03/2022 6:48 AM EST 10/03/2022 6:48 AM EST [facility] External Provider LAB BLO OD ORDERABLES Final Result Performing Organization Address [facility] Co de Phone Number [facility] [address] [place] [phone] * (ABNORMAL) CBC auto differential (10/03/2022 6:48 AM EST) White Blood Count 4.7(L) 4.8 - 10.8 X10*3/uL [facility] Red Blood Count 4.22 4.20 - 5.50 X10*6/uL [facility] Hemoglobin 12.8 12.0 - 16.0 g/dl [facility] Hematocrit 38.2 37.0 - 47.0 % [facility] Mean Corpuscular Volume 90.5 80.0 - 98.0 fL [facility] Mean Corpuscular Hemoglobin 30.3 27.0 - 33.0 pg [facility] Mean Corpuscular HGB Conc 33.5 31.0 - 35.0 g/dl [facility] Red Cell Distribution Width 12.5 11.0 - 16.0 % [facility] Platelet Count 249 160 - 400 X10*3/uL [facility] Mean Platelet Volume 10.4 9.4 - 12.3 fL [facility] Neutrophils Percent Auto 50.8 45 - 73 % [facility] Imm Gran Pct Auto 0.4 0.0 - 0.4 % [facility] Lymphocytes Percent Auto 38.8 20 - 40 % [facility] Monocytes Percent Auto 6.0 2 - 11 % [facility] Eosinophils Percent Auto 3.4 0 - 4 % [facility] Basophils Percent Auto 0.6 0 - 2 % [facility] NRBC Pct Auto 0.0 0.0 - 0.2 /100WBC [facility] Neutrophils Absolute Auto 2.4 2.0 - 8.3 x10*3/uL [facility] Imm Gran Abs Auto 0.02 0.00 - 0.03 X10*3/uL [facility] Lymphocytes Absolute Auto 1.8 1.2 - 4.9 X10*3/uL [facility] Monocytes Absolute Auto 0.3 0.1 - 1.2 X10*3/uL [facility] Eosinophils Absolute Auto 0.2 0.0 - 0.4 X10*3/uL [facility] Basophils Absolute Auto 0.0 0.0 - 0.2 X10*3/uL [facility] NRBC Abs Auto 0.000 0.0 - 0.012 X10*3/uL [facility] 10/03/2022 6:48 AM EST 10/03/2022 6:48 AM EST us [facility] External Provider LAB BLO OD ORDERABLES Final Result [facility] [address] [place] [phone] documented in this encounter Visit Diagnoses Diagnosis Hypothyroidism, unspecified type- Primary documented in this encounter Care Teams Studio Associate Relationship Specialty Start Date End Date Ashlee Meza MD [address] [place] [phone] PCP - General Family Medicine 03/28/20 08/17/24 Morgan Curran MD [address] [place] [address] PCP - General Internal Medicine 08/18/24 Gregorio Everett RN [address] [place] [address] Registered Nurse Family Medicine 04/15/25 Analisa Patino 04/15/25 documented as of this encounter
--- OUTSIDE RECORDS SUMMARY | 2025-05-17 10:45 | XMS_ITS | Encounter Summary ---
Author Organization [employer] Address [address] [facility] 7t [place] [address] Care Team Providers Care Bed Laborer Name Role Phone Morgan Curran MD Primary Care Prov ider Gregorio Everett RN Unavailable [phone] Analisa Patino Unavailable Reason for Visit * Reason Onset Date Comments Nurse Triage 09/15/2024 Encounter Details Date Type Department Care Team (Late st Contact Info) Description 09/15/[address] [facility] MEDICINE [address] [place] [address] Morgan Curran MD [address] [place] [address] Nurse Triage Social History Tobacco Use Types [...] Patient called back, requesting an appointment, given [facility] appt tomorrow. Future Appointments Date Time Provider Department Center 09/16/2024 2:20 PM [facility] SAME DAY [facility]ARE [facility] Insurance verified as active per Real Time Eligibility in [facility]. * Telephone Encounter - Farrah Valdivia [...] Upcoming Encounters Date Type Department Care Team ([facility] st Contact Info) Description 06/29/2025 8:30 AM EST Telemedicine [facility] MED & PEDS [address] [place] [address] Morgan Curran MD [address] [place] [address] documented as of this encounter Visit Diagnoses Diagnosis Spasm of cervical paraspinous muscle Spasm of muscle Moderate persistent asthma, unspecified whether complicated documented in this encounter Additional Health Concerns Assessment Noted Time PHQ-9 Depression Total Score: 8 05/25/20 24 8:54 AM EDT documented as of this encounter Care Teams Bed Laborer Relationship Specialty Start Date End Date Morgan Curran MD [address] [place] [address] PCP - General Internal Medicine 08/18/24 Gregorio Everett, RN [address] [place] [phone] Registered Nurse Family Medicine 04/15/25 nAalisa Patino 04/15/25 documented as of this encounter
--- OUTSIDE RECORDS SUMMARY | 2025-05-17 10:45 | XMS_ITS | Encounter Summary ---
Author Organization [employer] Address [address] [facility] 7t [place] [address] Care Team Providers Care Sales Relationship Manager Name Role Phone Morgan Curran MD Primary Care Prov ider Gregorio Everett RN Unavailable [phone] Analisa Patino Unavailable Reason for Visit * Reason Comments Med Refill Encounter Details Date Type Department Care Team ([facility] st Contact Info) Description 05/15/2025 Refill [facility] MED & PEDS [address] [place], [place] [phone] Ebenezer Acuña MD [address] [place] [address] Allergic rhinitis, unspecified seasonality, unspecified trigger Social History Tobacco Use Types Packs/Day Years [...] Description 06/29/2025 8:30 AM EST Telemedicine [facility] MED & PEDS [address] [place], [place] [phone] Morgan Curran MD [address] [place] [address] documented as of this encounter Visit Diagnoses Diagnosis Allergic rhinitis, unspecified seasonality, unspecified trigger documented in this encounter Additional Health Concerns Assessment Noted Time PHQ-9 Depression Total Score: 12 025 1:52 PM EDT documented as of this encounter Care Teams Sales Relationship Manager Relationship Specialty Start Date End Date Morgan Curran MD [address] [place] [address] PCP - General Internal Medicine 08/18/24 Gregorio Everett, DEVIN [address] [place] [address] Registered Nurse Family Medicine 04/15/25 Analisa Patino 04/15/25 documented as of this encounter
--- OUTSIDE RECORDS SUMMARY | 2025-05-17 10:45 | XMS_ITS ---
Author Organization [employer] Address [address] [place] [address] [address] [place] [address] Care Team Providers Care Licensed Staff Mft Name Role Phone Morgan Curran MD Primary Care Prov ider Gregorio Everett RN Unavailable [phone] Analisa Patino Unavailable [facility] Status:Enrolled (Active) Start date:04/15/2025 Enrollment date:04/15/2025 Enrollment reason:ADT Feed Overview ED- Pt went to [facility] ED on 04/14/25. Case Team Name Relationship Phone Analisa Patino(Responsible Staff) Continued Care and Services Coordination
--- OUTSIDE RECORDS SUMMARY | 2025-05-17 10:45 | XMS_ITS | Data Portability ---
Author Organization LIANNE - JOHN COLEMAN MD [facility], Main Office Address [address] [place] [phone] Assessment Encounter Date Assessment Date Assessment LastModified by Organization Details LastModified Time 09/19/2023 09/19/2023 VIDEO. telehealth. [facility]. 19 min. [place] [email or web address] Not available 09/19/2023 19:27:02 08/27/2024 08/27/2024 Telehealth. 17 min; [place] in [place]; [employer] [email or web address] Not available 08/28/2024 10:31:52 11/25/2024 11/25/2024 Telehealth. 19 min; [place]; [facility] [email or web address] Not available 11/25/2024 12:55:45 01/25/2025 01/25/2025 Telehealth. 17; [place]. [place]; [facility] [email or web address] Not available 01/25/2025 13:26:27 Plan of Treatment Reminders Order Date Submit Date Provider Last Modified By Organization Details Last Modified Time Details Appointments HBV FOLLOW UP 2024 02:00P Tj Vickers MD Not available Not available Not available Lab hepatitis B DNA, quantitat anastacia, serum [address] (Lab), [address] [place] [address], [id number], 02/09/2025 13:10:38 CBC w/ diff [address] (Lab), [address] [place] [address], [id number], 02/09/2025 13:10:38 RPR (rapid plasma reagin), serum [address] [place] [address] (Lab), [address] [place] [address], [id number], 02/09/2025 13:10:38 CMP, serum or plasma [address] [place] [address] (Lab), [address] [place] [address], [address], 02/09/2025 13:10:38 hepatitis B DNA, quantitat anastacia, serum [address] [place] [address] (Lab), [address] [place] [address], [id number], 12/02/2024 13:46:59 CBC w/ diff [address] [place] [address] (Lab), [address] [place] [address], [address], 12/02/2024 13:46:59 CT + NG DNA, PCR, unspecifi ed specimen [address] [place] [address] (Lab), [address] [place] [address], [address], 12/02/2024 13:46:59 hepatitis C virus Ab, serum [address] [place] [address] (Lab), [address] [place] [address], [address], 12/02/2024 13:46:59 RPR (rapid plasma reagin), serum [address] [place] [address] (Lab), [address] [place] [address], 14[address], 12/02/2024 13:47:00 HIV (1+2) Ab screen, serum [address] (Lab), [address] [place] [address], [address], 12/02/2024 13:47:00 CMP, serum or plasma [address] [place] [address] (Lab), [address] [place] [address], [address], 12/02/2024 13:47:00 hepatitis B DNA, quantitat anastacia, serum [address] (Lab), [address] [place] [address], [address], 09/04/2024 08:48:24 CBC w/ diff [address] (Lab), [address] [place] [address], 15[address], 09/04/2024 08:48:25 ALT (alanine aminotran sferase), serum or plasma [address] (Lab), [address] [place] [address], [address], 09/04/2024 08:48:25 AST/SGOT (aspartat e aminotran sferase), serum or plasma [address] (Lab), [address] [place] [address], [address], 09/04/2024 08:48:25 CT + NG DNA, PCR, unspecifi ed specimen [address] [place] [address] (Lab), [address] [place] [address], [address], 09/04/2024 08:48:25 creatinin e w/ estimated GFR (eGFR), serum or plasma [address] [place] [address] (Lab), [address] [place] [address], [address], 09/04/2024 08:48:25 hepatitis C virus Ab, serum [address] [place] [address] (Lab), [address] [place] [address], 30[address], 09/04/2024 08:48:25 RPR (rapid plasma reagin), serum [address] [place] [address] (Lab), [address] [place] [address], 832[address], 09/04/2024 08:48:25 HIV (1+2) Ab screen, serum [address] [place] [address] (Lab), [address] [place] [address], 77[address], 09/04/2024 08:48:25 bilirubin , total, serum or plasma [address] [place] [address] (Lab), [address] [place] [address], [address], 09/04/2024 08:48:25 albumin, serum or plasma [address] [place] [address] (Lab), [address] [place] [address], [address], 09/04/2024 08:48:25 hepatitis B DNA, quantitat anastacia, serum [address] [place] [address] (Lab), [address] [place] [address], [address], 02/14/2024 09:27:22 CBC w/ diff [address] (Lab), [address] [place] [address], 18227, 02/14/2024 09:27:23 ALT (alanine aminotran sferase), serum or plasma [address] (Lab), [address] [place] [address], 61583, 02/14/2024 09:27:23 AST/SGOT (aspartat e aminotran sferase), serum or plasma [address] (Lab), [address] [place] [address], [address], 02/14/2024 09:27:23 CT + NG DNA, PCR, unspecifi ed specimen [address] (Lab), [address] [place] [address], 570[address], 02/14/2024 09:27:23 creatinin e w/ estimated GFR (eGFR), serum or plasma [address] (Lab), [address] [place] [address], 67208, 02/14/2024 09:27:23 hepatitis C virus Ab, serum [address] (Lab), [address] [place] [address], 388[address], 02/14/2024 09:27:23 RPR (rapid plasma reagin), serum [address] (Lab), [address] [place] [address], 115[address], 02/14/2024 09:27:23 HIV (1+2) Ab screen, serum [address] (Lab), [address] [place] [address], 21775, 02/14/2024 09:27:24 bilirubin , total, serum or plasma [address] (Lab), [address] [place] [address], 21702, 02/14/2024 09:27:24 albumin, serum or plasma [address] (Lab), [address] [place], [address], 02/14/2024 09:27:24 Referral None recorded. Procedures None recorded. Surgeries None recorded. Imaging US, abdomen, complete - HCC screen 2024 025 [email or web address] [facility] (Imaging), [address] [place] [address], [address], 12/02/2024 13:46:46 US, abdomen - HBV. HCC SCreen; hx fatty liver; and GB adenomyom atosis per previous scan [address] (Imaging), [address] [place] [address], [address], 09/11/2024 09:03:34 Medication Orders Loratadin e-D 10 mg-240 mg tablet,ex tended release 24 hr 2024 025 [facility]armacy #[id number], [phone] [place], [address], 11/25/2024 12:56:33 Patient TargetsNo targets recorded. Patient InstructionsNo instructions recorded. Reason for Referral None Reported. Results Created Date Observation Date Name Description Value Unit Range Abnormal Flag Note LastModifiedBy Organization Detail LastModifiedTime 09/20/19 24 09/18/2023 US, liver No observ ation record ed. [facility] (Imaging) [address] [place] [address], [address], 09/23/2023 13:02:29 Result Notes None recorded. Problems Name Problem SNOMED Code Status Onset Date Resolution Date Notes Provider Name and Address Organization Details Recorded Time Steatotic liver disease 582974054 Active 2023 John Vickers MD [address] [place] [address], [phone] LIANNE VICKERS MD [facility] 10:35:09 Adenomyomatosi s of gallbladder 530340208 Active 2023 John Vickers MD [address] [place] [address] LIANNE chakraborty, [phone], LIANNE VICKERS MD [facility] 10:24:47 Problem Notes None recorded. Medical Equipment [...] Diagnosis SNOMED-CT Code Diagnosis ICD10 Code Diagnosis IMO Codes Diagnosis Note 571 John Vickers MD Main Office [address] [place] [address] LIANNE CHAKRABORTY [phone] 04/29/2023 12:56:09 04/30/2023 17:08:59 Chronic type B viral hepatitis 63843486 B18.1 HBV. monitor labs; no tx. no [...] Plan of care reviewed Steatotic liver disease 706821855 K76.0 diet and exercise reviewedav oid ETOH.incre ase water intake. 1993 John Vickers MD Main Office [address] [place] [address] LIANNE CHAKRABORTY [phone] 08/27/2023 10:39:49 08/27/2023 11:01:55 Chronic type B viral hepatitis 23879807 B18.1 HBV.monito r labs; no tx. no [...] PreP availabili tyPlan of care reviewed Adult [facility] th examination 424127908 Z00.00 labs ordered [id number] John Vickers MD Main Office [address] [place] [address] 09/19/2023 10:01:15 11/04/2023 13:55:01 Chronic type B viral hepatitis 92392664 B18.1 HBV.monito r labs; no tx. no [...] of care reviewed Adenomyoma tosis of gallbladder 043685983 K82.8 will see GI; referred by PCP. 52515 John Vickers MD Main Office [address] [place] [address] 02/07/2024 09:16:44 02/07/2024 10:45:21 Chronic type B viral hepatitis 81870743 B18.1 HBV.monito r labs; no tx. no [...] of care reviewed Adenomyoma tosis of gallbladder 054958111 K82.[address] scan reports done at [facility] Steatotic liver disease 231083763 K76.0 diet and exercise reviewedav oid ETOH.incre ase water intake.vit E suggested. 40710 John Vickers MD Main Office [address] [place] [address] 08/28/2024 10:19:34 09/10/2024 15:08:10 Chronic type B viral hepatitis 06641351 B18.1 HBV.monito r labs; no tx. no [...] of care reviewed Adenomyoma tosis of gallbladder 602984204 K82.[address] [facility] ordered Steatotic liver disease K76.0 diet and exercise reviewedav oid ETOH.incre ase water intake.ivy ght loss reviewedu/ [place] abd 57710 John Vickers MD Main Office [address] [place] [address] 11/25/2024 12:50:10 11/25/2024 13:23:26 Chronic type B viral hepatitis 96293141 B18.1 HBV.monito r labs; no tx. no [...] reviewedu/ s abd HCC csreen Nasal congestion 5185279 0 R09.81 58570 flonase qdloratadi ne D [place] lorat[place] for congestion /[place] [address] John Vickers MD Main Office [address] [place] [address] 01/25/2025 13:13:40 01/25/2025 13:44:43 Chronic type B viral hepatitis 00257425 B18.1 HBV.monito r labs; no tx. no [...] Sanchez Member ID Guarantor Name 08/28/2024 1 [place] [facility] Ashley Marshall [id number] Ashley Olivares 11/20/2024 1 [facility] [id number] Ashley Olivares [id number] Ashley Olivares 08/28/2024 2 [place] [facility] Ashleyabhi Olivares [id number] Ashleyabhi Olivares 01/26/2025 1 [place] [facility] Ashleyabhi Olivares [id number] Ashley Olivares Notes Date Note Type Note Provider Name and Address Organization Details Recorded Time 09/19/2023 text/html ROS as noted in the HPI f/u HBV.not on tx by choice.08/28/2023 Fibrosure F0; HDV negshe was told has adenomyomatosis of GB; was present on 2022.;she will see a surgeon on 10/01/23 for gallbladder evaluation. i do not have u/s report here.no other concerns. no abd pain. no n.v.d, abdominal discomfort after she eats. no weight loss. no fever. no ieeamleb25/2023 HBV labs not done; ASLt/AST wnl; eGFR [...] abdno new medical issues John Vickers MD [address] [place] [address], [phone], LIANNE VICKERS MD [facility] 09/22/2023 21:33:42 02/07/2024 text/html ROS as noted in the HPI f/u HBV.not on tx by choice.08/28/2023 Fibrosure F0; HDV neghad CT scan done in [place]. due to u/s 08/2023 that shows adenomyomatosis of GB; was present on 2022.;no other concerns. no abd pain. no n.v.d, abdominal discomfort after she eats. no weight loss. no fever. no vmidbpda65/2023 HBV labs not done; ASLt/AST wnl; eGFR [...] male sexual partner John Vickers MD [address] [place], [address], LIANNE VICKERS MD [facility] 02/07/2024 14:52:16 08/27/2024 text/html ROS as noted in the HPI f/u HBV.not on tx by choice.07/2024 HBV DA=103; ALT/AST wnl; eGFE>60; negative HIV and negative syphillis. neg GC/chlamydia08/28/2023 Fibrosure F0; HDV neghad u/s and CT scan done in [place]. due to u/s 08/2023 that shows adenomyomatosis of GB; was present on 2022.;no other concerns. no abd pain. no n.v.d, abdominal discomfort after she eats. no weight loss. no fever. no jaundicemed list reviewedno new meds nor OTCdenies ETOH use. denies drug useno new medical issueshas one male partner; denies sexual activityno STI sxshe reports household is vaccinated John Vickers MD [address] [place] [address], [phone], LIANNE VICKERS MD [facility] 08/28/2024 10:34:13 11/25/2024 text/html ROS as noted [...] neg; HCV neg; ALT/AST wnl; eGFR>6007/2024 HBV KH=011; ALT/AST wnl; eGFE>60; negative HIV and negative syphillis. neg GC/chlamydia08/28/2023 Fibrosure F0; HDV neghad u/s and CT scan done in [place]. due to u/s 08/2023 that shows adenomyomatosis of GB; was present on 2022.; John Vickers MD [address] [place] [address], [phone], LIANNE VICKERS MD [facility] 11/25/2024 13:02:12 01/25/2025 text/html ROS as noted in the HPI f/u HBV.not on tx by choice.no other concerns. no abd pain. no n.v.d, abdominal discomfort after she eats. no weight loss. no fever. no jaundicemed list reviewedno new meds nor OTCdenies ETOH use.denies drug use08/2024 u/s unremarkable11/2024 HBV vL 75; HIV neg; HCV adnielito neg;08/2024 HIV neg; HCV neg; ALT/AST wnl; eGFR>6007/2024 HBV CC=405; ALT/AST wnl; eGFE>60; negative HIV and negative syphillis. neg GC/chlamydia08/28/2023 Fibrosure F0; HDV neghad u/s and CT scan done in [place]. due to u/s 08/2023 that shows adenomyomatosis of GB; was present on 2022.; John Vickers MD [address] [place] [address], [phone], LIANNE - JOHN VICKERS MD [facility] 01/25/2025 13:27:08 OBGyn Episode No OBEpisode recorded.
--- OUTSIDE RECORDS SUMMARY | 2025-05-17 10:45 | XMS_ITS | Encounter Summary ---
Author Organization [employer] Address [address] [facility] [address] [place] [address] Care Team Providers Care Cage Clerk Name Role Phone Morgan Curran MD Primary Care Prov ider Gregorio Everett RN Unavailable [phone] Analisa Patino Unavailable Encounter Details Date Type Department Care Team (Late st Contact Info) Description 05/17/2025 Plan of Care Documentation [facility] [address] [place] [address] Social History Tobacco Use Types Packs/Day Years [...] the past 12 months, has t he [employer], gas, oil or water [employer] threatened to shut off services in [...] Info) Description 06/29/2025 8:30 AM EST Telemedicine [facility] [address] [place], [place] [phone] Morgan Curran MD [address] [place] [address] documented as of this encounter Visit Diagnoses Not on filedocumented in this encounter Additional Health Concerns Assessment Noted Time PHQ-9 Depression Total Score: 12 025 1:52 PM EDT documented as of this encounter Care Teams Cage Clerk Relationship Specialty Start Date End Date Morgan Curran MD [address] [place] [address] PCP - General Internal Medicine 08/18/24 Gregorio Everett RN [address] [place] [address] Registered Nurse Family Medicine 04/15/25 Analisa Patino 04/15/25 documented as of this encounter
--- OUTSIDE RECORDS SUMMARY | 2025-05-17 10:45 | XMS_ITS | Encounter Summary ---
Author Organization [employer] Address 75 [facility] [address] [place] [address] Care Team Providers Care Utility Teller Name Role Phone Morgan Curran MD Primary Care Prov ider Gregorio Everett RN Unavailable [phone] Analisa Patino Unavailable Reason for Visit * Reason Comments Care Management C3CM- Initial assess ment/enrollment Encounter Details Date Type Department Care Team ([facility] st Contact Info) Description 05/11/2025 Patient Outreach [facility] [address] [place], [place] [phone] Morgan Curran MD [address] [place], [place] [phone] Care Management (C3CM- Initial assessment/enrollmen t) Social History Tobacco Use Types Packs/Day Years [...] AM EDT documented as of this encounter Functional Status * Over the past 2 weeks, how often have you been bothered by any of the following problems? Question Answer Date of Assessment Author Patient Health Questionnaire-2 Score 4 04/28 1:52 PM EDGregorio Carter RN * Little interest or pleasure in doing things Answer Date of Assessment Author Nearly every day 05/11/2025 1:52 PM MASONT Gregorio Everett RN * Feeling down, depressed, or hopeless Answer Date of Assessment Author Several days 05/11/2025 1:52 PM MASONT Gregorio Everett RN * Trouble falling or staying asleep, or sleeping too much Answer Date of Assessment Author Nearly every day 05/11/2025 1:52 PM EDT Gregorio Sepulveda RN * Feeling tired or having little energy Answer Date of Assessment Author Nearly every day 05/11/2025 1:52 PM MASONT Gregorio Everett RN * Poor appetite or overeating Answer Date of Assessment Author Several days 05/11/2025 1:52 PM MASONT Gregorio Everett RN * Feeling bad about yourself - or that you are a failure or have let yourself or your family down Answer Date of Assessment Author Not at all 05/11/2025 1:52 PM Gregorio Damian RN * Trouble concentrating on things, such as reading the newspaper or watching television Answer Date of Assessment Author Not at all 05/11/2025 1:52 PM Gregorio Damian RN * Moving or speaking so slowly that other people could have noticed? Or the opposite - being so fidgety or restless that you have been moving around a lot more than usual. Answer Date of Assessment Author Several days 05/11/2025 1:52 PM Gregorio Damian RN * Thoughts that you would be better off or hurting yourself in some way Answer Date of Assessment Author Not at all 05/11/2025 1:52 PM Gregorio Damian RN * Patient Health Questionnaire-9 Score Answer Date of Assessment Author 12 05/11/2025 1:52 PM Gregorio Damian RN * How difficult have these problems made it for you to do your work, take care of things at home, or get along with other people? Answer Date of Assessment Author Very difficult 05/11/2025 1:52 PM Gregorio Damian RN * Over the last 2 weeks, how often have you been bothered by any of the following problems? Question Answer Date of Assessment Author Feeling nervous, anxious, or on edge 3 04/28 1:57 PM EDT Gregorio Everett RN Not being able to stop or co ntrol worrying 2 05/11/2025 1:57 PM EDT Gregorio Everett R N Worrying too much about diff erent things 3 05/11/2025 1:57 PM EDT Gregorio Everett R N Trouble relaxing 2 05/11/2025 1:57 PM EDT Gregorio Perez RN Being so restless that it is hard to sit still 1 05/11/2025 1:57 PM EDT Gregorio Everett R N Becoming easily annoyed or irritable 3 04/28 1:57 PM EDT Gregorio Everett RN Feeling afraid as if somethi ng awful might happen 3 05/11/2025 1:57 PM EDT Gregorio Everett R N PINA-7 Total Score 17 05/11/2025 1:57 PM EDT Gregorio Everett RN * Suicidal Ideation Question Answer Date of Assessment Author 1. Wish to be (Lifetime) No 05/11/2025 3:30 PM EDT Gregorio Everett RN 2. Non-Specific Active Suici dewey Thoughts (Lifetime) No 05/11/2025 3:30 PM EDT Gregorio Everett R N documented as of this encounter Progress Notes * Gregorio Everett RN - 05/11/2025 12:57 PM EDT GABE Everett RN placed outbound call to patient for agreed upon time for initial assessment forenrollment into Adult Care Management Program. Patient's name, , and address were verified. Ashley Olivares is a 54 year old Armenian speaking female with prior medical history of hypothyroidism, allergic rhinitis, asthma, anxiety, depression, hypertension. Patient reports that she follows multiple specialist, including: [facility] urogynecology, ENT, [facility], ophthalmology and behavioral health (BHN). Patient reports that she has an upcoming ENT appointment on 05/23/25 to discuss MRI results and planof care. Patient reports that she missed her uro-gynecology appointment on 04/15/25 due to feeling unwell, states appointment was rescheduled but is unsure of new date and time. CM called [facility] Uro[facility]necology and spoke with Alva, who confirmed that the appointment has been rescheduled for 05/28/25 at 9:00 AM. Patient reports that she has a GI appointment at [facility] on 05/17/25 @ 9:45 AM (confirmed via [facility]). Patient reports persistent tinnitus (ringing) from the left ear for several months now, which she finds very bothersome. Patient reports that she had a recent hearing test that came back WNL. Patient reports receiving regular dental care at [facility] and states she attends appointments frequently. Patient reports that she was seen in March at [facility] [place] and was diagnosed with cataracts. Patient states she was prescribed two types of eye drops to use for a specified duration but was unable to complete the course and has since misplaced the medication. CM contacted [facility], explained the situation, and was informed that a message will be sent to the appropriate staff. The office will follow up with the patient directly or with CMif they are unable to reach her. Patient reports that she went to [facility] on 04/14/25 due to abdominal pain, states she is feeling better. Patient reports that she takes pantoprazole fasting in the AM and famotidine 20 mg in the PM which have been effective in controlling her symptoms. Patient reports that she lives alone in an apartment. Patient reports that she is behind on her light bill, and owes about $3000. Patient also reports that he owes $320 in gas. Patient reports that he receives [employer] but occasionally runs out of food. Patient reports that she does not currently work. Patient reports that she receives [employer] transportation. Patient reports that she has internet but no cable.Patent reports that she owns a BP machine, and has a portable nebulizer machine. Patient reports that she follow a relatively healthy diet including fish, and veggies. Patient state she avoids rice and fried food. Patient reports that she does not engage in regular exercise but walks occasionally while running errands. Patient express concern about her weight, stating that despite eating very little, she has not experienced any weight loss. Patient reports intermittent b/l knee pain, right elbow pain, and neck pain. Patient reports taking ibuprofen for pain relieve as needed. Patient reports weekly counseling session with her therapist named Sarah. Patient reports that she speaks with herpsychiatrist every 2 weeks. Patient denies any SI/HI and states she keeps crisis # accessible. Patient reports that her goal is to feel calmer and reduce fear. Patient denies drinking, smoking or anyillegal substance. Patient denies needing assistance with ADL's. Patient reports she is able to complete task little by little. Patient reports sometimes thing fall out of her hand. Patient reports that she used to receive [facility] services in the past but not currently and also denies receiving VNA services. Patient reports that her daughter is her HCP. Patient reports that she used to receive med[facility]at the pharmacy but no longer due to not having many medication. Patient reports that she sometimes forget to take her meds and is interested in starting med box again. Patient denies any medication side effects. Care management program explained and contact information given. Patient verbalizes understanding, and able to repeat back to proposal manager writer. A follow up call will be placed within 10 days, patient agrees with plan. * Gregorio Everett RN - 05/11/2025 12:57 PM EDT GABE Everett RN, provided notification to PCP Dr. Maradiaga of patient's enrollment into C3 Complex Care Program. documented in this encounter Plan of Treatment Upcoming Encounters Date Type Department Care Team (Late st Contact Info) Description 06/29/2025 8:30 AM EST Telemedicine [facility] [address] [place] [address] Morgan Curran MD [address] [place] [address] documented as of this encounter Visit Diagnoses Not on filedocumented in this encounter Additional Health Concerns Assessment Noted Time PHQ-9 Depression Total Score: 12 025 1:52 PM EDT documented as of this encounter Care Teams Utility Teller Relationship Specialty Start Date End Date Morgan Curran MD [address] [place] [address] PCP - General Internal Medicine 08/18/24 Gregorio Everett, DEVIN [address] [place] [address] Registered Nurse Family Medicine 04/15/25 Analisa Patino 04/15/25 documented as of this encounter
--- OUTSIDE RECORDS SUMMARY | 2025-05-17 10:45 | XMS_ITS ---
Author Organization [employer] Address [address] [place] [address] [address] [place] [address] Care Team Providers Care Physical Sciences Instructor Name Role Phone Morgan Curran MD Primary Care Prov ider Gregorio Everett RN Unavailable [phone] Analisa Patino Unavailable CM Complex Status:Enrolled (Active) Start date:04/15/2025 Enrollment date:05/11/2025 Enrollment reason:ADT Feed Overview ED- Pt went to [facility] ED on 04/14/25. Case Team Name Relationship Phone Gregorio Everett RN(Responsible Staff) Registered Lisa jordan [phone] Continued Care and Services Coordination
--- OUTSIDE RECORDS SUMMARY | 2025-05-17 10:46 | XMS_ITS | Encounter Summary ---
Author Organization [employer] Address 75 [facility] 7t [place] [address] Care Team Providers Care Tool Dresser Name Role Phone Morgan Curran MD Primary Care Prov ider Gregorio Everett RN Unavailable [phone] Analisa Patino Unavailable Reason for Visit * Reason Comments Med Refill Encounter Details Date Type Department Care Team ([facility] st Contact Info) Description 02/25/2025 Refill [facility] [address] [place], [place] [phone] Ashlee Meza MD [address] [place], [place] [phone] Social History Tobacco Use Types Packs/Day Years [...] Upcoming Encounters Date Type Department Care Team ([facility] st Contact Info) Description 06/29/2025 8:30 AM EST Telemedicine [facility] MED & PEDS [address] [place] [address] Morgan Curran MD [address] [place] [address] documented as of this encounter Visit Diagnoses Not on filedocumented in this encounter Additional Health Concerns Assessment Noted Time PHQ-9 Depression Total Score: 8 05/25/20 24 8:54 AM EDT documented as of this encounter Care Teams Tool Dresser Relationship Specialty Start Date End Date Morgan Curran MD [address] [place] [address] PCP - General Internal Medicine 08/18/24 Gregorio Everett, DEVIN [address] [place] [address] [place] [address] Registered Nurse Family Medicine 04/15/25 Analisa Patino 04/15/25 documented as of this encounter
--- OUTSIDE RECORDS SUMMARY | 2025-05-17 10:46 | XMS_ITS | Encounter Summary ---
Author Organization [employer] Address 75 [facility] 7t [place] [address] Care Team Providers Care Environmental Tech Name Role Phone Ashlee Meza MD Primary Care Provider [phone] Morgan Curran MD Primary Care Prov ider Gregorio Everett RN Unavailable [phone] Analisa Patino Unavailable Reason for Visit * Reason Onset Date Comments Nurse Triage 08/12/2024 Encounter Details Date Type Department Care Team (Late st Contact Info) Description 08/12/2024 Telephone [facility] [address] [place] [address] Ashlee Meza MD 505 [place], [place] [phone] Nurse Triage Social History Tobacco Use Types [...] 08/12/2024 3:04 PM EST Triage call with [facility] [place] [id number]. Pt reports can speak Icelandic. Triage continued in hungarian at this time. Pt reports frequency , [...] become worse * Telephone Encounter - Guillermo Wen - 08/12/2024 2:06 PM EST Symptoms: Urine Symptoms, Abdominal Pain - Female - Not Outcome: Schedule an urgent appointment (within 4 hours) or talk to a nurse or provider soon Reason: Started within the past 3 days The caller accepted this outcome. Contact pt [phone] documented in this encounter Plan of Treatment Upcoming Encounters Date Type Department Care Team (Late st Contact Info) Description 06/29/2025 8:30 AM EST Telemedicine [facility] [address] [place] [address] Morgan Curran MD [address] [place] [address] documented as of this encounter Visit Diagnoses Not on filedocumented in this encounter Additional Health Concerns Assessment Noted Time PHQ-9 Depression Total Score: 8 05/25/20 24 8:54 AM EDT documented as of this encounter Care Teams Environmental Tech Relationship Specialty Start Date End Date Ashlee Meza MD [address] [place] [address] PCP - General Family Medicine 03/28/20 08/17/24 Morgan Curran MD [address] [place] [address] PCP - General Internal Medicine 08/18/24 Gregorio Everett, DEVIN [address] [place] [address] LIANNE Silvestre [address] Registered Nurse Family Medicine 04/15/25 Analisa Patino 04/15/25 documented as of this encounter
--- OUTSIDE RECORDS SUMMARY | 2025-05-17 10:46 | XMS_ITS | Encounter Summary ---
Author Organization [employer] Address 75 [facility] 7t [place] [address] Care Team Providers Care Restaurant Host/Hostess Name Role Phone Ashlee Meza MD Primary Care Provider [phone] Morgan Curran MD Primary Care Prov ider Gregorio Everett RN Unavailable [phone] Analisa Patino Unavailable Reason for Visit * Reason Comments Med Refill Encounter Details Date Type Department Care Team ([facility] Contact Info) Description 05/21/2023 Refill [facility]S [address] [place], [place] [phone] Ashlee Meza MD [address] [place] [address] Social History Tobacco Use Types Packs/Day Years Used Date Smoking Tobacco: Never Passive Smoke Exposure: Never Smokeless Tobacco: Never Alcohol Use Standard Drinks/Week Comments Never 0 (1 standard drink = 0.6 oz pur e alcohol) Depression Answer Date Recorded Patient Health Questionnaire-9 Score 6 04/22/2023 Housing Stability Answer Date Recorded What is your housing situation today? I have howard jeannine 05/13/[address] you li [...] 06/29/2025 8:30 AM EST Telemedicine [facility] MED & PED[facility] [address] [place] [address] Morgan Curran MD [address] [place] [address] documented as of this encounter Visit Diagnoses Not on filedocumented in this encounter Additional Health Concerns Assessment Noted Time PHQ-9 Depression Total Score: 6 04/22/20 23 9:18 AM EDT documented as of this encounter Care Teams Restaurant Host/Hostess Relationship Specialty Start Date End Date Ashlee Meza MD [address] [place] [address] PCP - General Family Medicine 03/28/20 08/17/24 Morgan Curran MD [address] [place], [place] [phone] PCP - General Internal Medicine 08/18/24 Gregorio Everett, DEVIN [address] [place] [address] Registered Nurse Family Medicine 04/15/25 Analisa Patino 04/15/25 documented as of this encounter
--- OUTSIDE RECORDS SUMMARY | 2025-05-17 10:46 | XMS_ITS | Encounter Summary ---
Author Organization [employer] Address 75 [facility] 7t [place] [address] Care Team Providers Care Interactive Producer Name Role Phone Morgan Curran MD Primary Care Prov ider Gregorio Everett RN Unavailable [phone] Analisa Patino Unavailable Reason for Visit * Reason Onset Date Comments Med Refill 09/15/2024 Encounter Details Date Type Department Care Team (Late st Contact Info) Description 09/15/2024 Refill [facility]EDS [address] [place], [place] [phone] Ashlee Meza MD [address] [place], [place] [phone] Spasm of cervical paraspinous muscle Social History [...] Description 06/29/2025 8:30 AM EST Telemedicine [facility] [address] [place] [address] Morgan Curran MD [address] [place] [address] documented as of this encounter Visit Diagnoses Diagnosis Spasm of cervical paraspinous muscle Spasm of muscle documented in this encounter Additional Health Concerns Assessment Noted Time PHQ-9 Depression Total Score: 8 05/25/20 24 8:54 AM EDT documented as of this encounter Care Teams Interactive Producer Relationship Specialty Start Date End Date Morgan Curran MD [address] [place] [address] PCP - General Internal Medicine 1/21/25 Gregorio Everett, RN [address] [place] [address] Registered Nurse Family Medicine 04/15/25 Analisa Patino 04/15/25 documented as of this encounter
--- OUTSIDE RECORDS SUMMARY | 2025-05-17 10:46 | XMS_ITS | Encounter Summary ---
Author Organization [employer] Address 75 [facility] 7t [place] [address] Care Team Providers Care Loan Underwriter Name Role Phone Ashlee Meza MD Primary Care Provider [phone] Morgan Curran MD Primary Care Prov ider Gregorio Everett RN Unavailable [phone] Analisa Patino Unavailable Reason for Visit * Reason Comments Med Refill Encounter Details Date Type Department Care Team ([facility] Contact Info) Description 08/05/2023 Refill [facility] & PEDS [address] [place], [place] [phone] Ashlee Meza MD [address] [place] [address] Social History Tobacco Use Types Packs/Day Years [...] Info) Description 06/29/2025 8:30 AM EST Telemedicine [facility] MED & PEDS [address] [place] [address] Morgan Curran MD [address] [place] [address] documented as of this encounter Visit Diagnoses Not on filedocumented in this encounter Additional Health Concerns Assessment Noted Time PHQ-9 Depression Total Score: 6 04/22/20 23 9:18 AM EDT documented as of this encounter Care Teams Loan Underwriter Relationship Specialty Start Date End Date Ashlee Meza MD [address] [place] [address] PCP - General Family Medicine 03/28/20 08/17/24 Morgan Curran MD [address] [place], [place] [phone] PCP - General Internal Medicine 08/18/24 Gregorio Everett, DEVIN [address] [place] [address] Registered Nurse Family Medicine 04/15/25 Analisa Patino 04/15/25 documented as of this encounter
--- OUTSIDE RECORDS SUMMARY | 2025-05-17 10:46 | XMS_ITS | Encounter Summary ---
Author Organization [employer] Address 75 [facility] 7t [place] [address] Care Team Providers Care Sales Team Member Name Role Phone Morgan Curran MD Primary Care Prov ider Gregorio Everett RN Unavailable [phone] Analisa Patino Unavailable Reason for Visit * Reason Onset Date Comments Nurse Triage 11/20/2024 Encounter Details Date Type Department Care Team (Late st Contact Info) Description 11/20/2024 Telephone [facility] [address] [place] [address] Morgan Curran MD 505 [place] [address] Nurse Triage Social History Tobacco Use Types [...] 11/20/2024 9:34 AM EDT Triage call with [place] [id number] Pt reports a buzzing sound in left ear started 2 days ago. Pt also has sx of sneezing, eyes irritated, dizziness. Neg for pain or loss of hearing. Sound is constant. This does interfere with normal activities. ASK apt in [facility] @ 240pm 11/20/24. Pt agrees with disposition [...] become worse * Telephone Encounter - Eleonora Jose Alfredo - 11/20/2024 8:41 AM EDT Symptom: Ear Ringing or Buzzing (No Pain) Outcome: Schedule a same-day appointment or talk to a nurse or provider today Reason: Started within the past 3 days The caller accepted this outcome. documented in this encounter Plan of Treatment Upcoming Encounters Date Type Department Care Team ([facility] st Contact Info) Description 06/29/2025 8:30 AM EST Telemedicine [facility] MED & PEDS [address] [place] [address] Morgan Curran MD [address] [place] [address] documented as of this encounter Visit Diagnoses Not on filedocumented in this encounter Additional Health Concerns Assessment Noted Time PHQ-9 Depression Total Score: 8 05/25/20 24 8:54 AM EDT documented as of this encounter Care Teams Sales Team Member Relationship Specialty Start Date End Date Morgan Curran MD [address] [place] [address] PCP - General Internal Medicine 08/18/24 Gregorio Everett, DEVIN [address] [place] [address] Registered Nurse Family Medicine 04/15/25 Analisa Patino 04/15/25 documented as of this encounter
--- OUTSIDE RECORDS SUMMARY | 2025-05-17 10:46 | XMS_ITS | Encounter Summary ---
Author Organization [employer] Address 75 [facility] [address] [place] [address] Care Team Providers Care Fisher Weir Name Role Phone Morgan Curran MD Primary Care Prov ider Gregorio Everett RN Unavailable [phone] Analisa Patino Unavailable Reason for Visit * Reason Onset Date Comments Nurse Triage 09/23/2024 Encounter Details Date Type Department Care Team ([facility] st Contact Info) Description 09/23/2024 Telephone [facility] MED & PEDS [address] [place], [place] [phone] Morgan Curran MD [address] [place] [address] Nurse Triage Social History Tobacco Use Types [...] 09/23/2024 2:04 PM EST Triage call with [facility] [place] [id number], Carlos Alberto Pt reports abdominal pain, above umbilicus for last few days. Pt reports one episode of diarrhea yesterday but, nothing more. Neg for vomiting, fever or urinary symptoms. Pt reports this pain comes and goes but, is not ending. Pt is not . ASK apt in [facility] today at 320p. Pt agrees with disposition [...] Info) Description 06/29/2025 8:30 AM EST Telemedicine [facility] MED & PEDS [address] [place] [address] Morgan Curran MD [address] [place] [address] documented as of this encounter Visit Diagnoses Not on filedocumented in this encounter Additional Health Concerns Assessment Noted Time PHQ-9 Depression Total Score: 8 05/25/20 24 8:54 AM EDT documented as of this encounter Care Teams Fisher Weir Relationship Specialty Start Date End Date Morgan Curran MD [address] [place] [address] PCP - General Internal Medicine 08/18/24 Gregorio Everett, RN [address] [place] [address] Registered Nurse Family Medicine 04/15/25 Analisa Patino 04/15/25 documented as of this encounter
--- OUTSIDE RECORDS SUMMARY | 2025-05-17 10:47 | XMS_ITS | Encounter Summary ---
Author Organization [employer] Address 75 [facility] 7t [place] [address] Care Team Providers Care Public Policy Coordinator Name Role Phone Morgan Curran MD Primary Care Prov ider Gregorio Everett RN Unavailable [phone] Analisa Patino Unavailable Encounter Details Date Type Department Care Team (Late st Contact Info) Description 03/25/2025 Results Follow-Up [facility] MEDICINE [address] [place], [place] [phone] Sonya Isaacs, ANP 230 [place], [place] [phone] T4, Free Social History Tobacco Use Types [...] Info) Description 06/29/2025 8:30 AM EST Telemedicine [facility] CHC MED & PEDS 505 [place] [address] Morgan Curran MD 505 [place] [address] documented as of this encounter Visit Diagnoses Not on filedocumented in this encounter Additional Health Concerns Assessment Noted Time PHQ-9 Depression Total Score: 8 05/25/20 24 8:54 AM EDT documented as of this encounter Care Teams Public Policy Coordinator Relationship Specialty Start Date End Date Morgan Curran MD 505 [place] [address] PCP - General Internal Medicine 08/18/24 Gregorio Everett, DEVIN 505 [place] [address] Registered Nurse Family Medicine 04/15/25 Analisa Patino 04/15/25 documented as of this encounter
--- OUTSIDE RECORDS SUMMARY | 2025-05-17 10:47 | XMS_ITS | Encounter Summary ---
Author Organization [employer] [facility] Address 75 [facility] 7 [place] [address] Care Team Providers Care Electrical Logging Engineer Name Role Phone Morgan Curran MD Primary Care Prov ider Gregorio Everett RN Unavailable Analisa Patino Unavailable Reason for Referral * Consultation (Routine) - Closed Specialty Diagnoses / Procedures Referred By Maya schrader Referred To Contact Otolaryngology Diagnoses Unilateral subjective nonpulsatile tinnitus without hearing loss, otoscopic finding, neurologic deficit, or head trauma Ebenezer Acuña MD 505 [place] [address] Phone: tel: fax: [facility] [address] Phone: tel: fax: Referral ID Status Reason Start Date Expiration Date V isits Requested Visits Authorized [id number] Closed Specialty Services Required 12/29/2024 12/29/2025 1 1 Encounter Details Date Type Department Care Team (Late st Contact Info) Description 12/29/2024 Orders Only [facility] CHC MED & PEDS 505 [place] [address] Ebenezer Acuña MD 505 [place] [address] Unilateral subjective nonpulsatile tinnitus without hearing loss, [...] Description 06/29/2025 8:30 AM EST Telemedicine [facility] CHC MED & PEDS [address] [place] [address] Morgan Curran MD 505 [place] [address] Scheduled Referrals Name Type Priority Associated Diagnoses [...] documented as of this encounter Care Teams Electrical Logging Engineer Relationship Specialty Start Date End Date Morgan Curran MD 505 [place] [address] PCP - General Internal Medicine 08/18/24 Gregorio Everett, RN 505 [place] [address] Registered Nurse Family Medicine 04/15/25 Analisa Patino 04/15/25 documented as of this encounter
--- OUTSIDE RECORDS SUMMARY | 2025-05-17 10:47 | XMS_ITS | Encounter Summary ---
Author Organization [employer] Address 75 [facility] 7t [place] [address] Care Team Providers Care Junior Database Administrator Name Role Phone Morgan Curran MD Primary Care Prov ider Gregorio Everett RN Unavailable Analisa Patino Unavailable Reason for Visit * Reason Onset Date Comments Med Refill 03/30/2025 Encounter Details Date Type Department Care Team (Late st Contact Info) Description 03/30/2025 Refill [facility] CHC MED & PEDS 505 [place], [place] [phone] Morgan Curran MD 505 [place] [address] Spasm of cervical paraspinous muscle Social History [...] Upcoming Encounters Date Type Department Care Team ([facility] st Contact Info) Description 06/29/2025 8:30 AM EST Telemedicine [facility] MED & PEDS 505 [place] [address] Morgan Curran MD 505 [place] [address] documented as of this encounter Visit Diagnoses Diagnosis Spasm of cervical paraspinous muscle Spasm of muscle documented in this encounter Additional Health Concerns Assessment Noted Time PHQ-9 Depression Total Score: 8 05/25/20 24 8:54 AM EDT documented as of this encounter Care Teams Junior Database Administrator Relationship Specialty Start Date End Date Morgan Curran MD 505 [place] [address] PCP - General Internal Medicine 08/18/24 Gregorio Everett, RN [address] [place] [address] Registered Nurse Family Medicine 04/15/25 Analisa Patino 04/15/25 documented as of this encounter
== END 2025-05-17 10:02 | disposition home or self-care (01) ==
LOC: HO.HGI 09:34
PROVIDERS: PCP Internal Medicine; Visit Provider Internal Medicine
DX: B19.10 Unspecified viral hepatitis B without hepatic coma (principal); I10 Essential (primary) hypertension; R10.11 Right upper quadrant pain
CPT/HCPCS: 99214

== ENCOUNTER → 2025-05-17 09:34 | Outpatient (BNVA) | payer MEDICAID, SELFPAY | PROVIDERS: PCP Internal Medicine; Visit Provider Internal Medicine | DX: I10 Essential (primary) hypertension (principal); B19.10 Unspecified viral hepatitis B without hepatic coma; R10.9 Unspecified abdominal pain | CPT/HCPCS: 99212 ==

== ENCOUNTER 2025-05-19 06:57 | Outpatient (REF) | payer MEDICAID, SELFPAY ==
--- OUTSIDE RECORDS SUMMARY | 2025-05-19 06:59 | XMS_ITS | Encounter Summary ---
Author Organization [employer] [facility] Address 75 [facility] 7t [place] [address] Care Team Providers Care Geotechnical Engineer Name Role Phone Ashlee Meza MD Primary Care Provider [phone] Morgan Curran MD Primary Care Prov ider Gregorio Everett RN Unavailable [phone] Analisa Patino Unavailable Reason for Visit * Reason Comments Med Refill Encounter Details Date Type Department Care Team (Late Contact Info) Description 09/14/2022 Refill [facility] MEDICINE 230 [place] [address] Cornell Bucio FNP Anxiety (Primary Dx) Social [...] Info) Description 06/29/2025 8:30 AM EST Telemedicine [facility] CHC MED & PEDS 505 [place] [address] Morgan Curran MD 505 [place] [address] documented as of this encounter Visit Diagnoses Diagnosis Anxiety- Primary Anxiety state, unspecified documented in this encounter Care Teams Geotechnical Engineer Relationship Specialty Start Date End Date Ashlee Meza MD [address] [place] [address] PCP - General Family Medicine 03/28/20 08/17/24 Morgan Curran MD 505 [place] [address] PCP - General Internal Medicine 08/18/24 Gregorio Everett, RN 505 [place] [address] Registered Nurse Family Medicine 04/15/25 Analisa Patino 04/15/25 documented as of this encounter
--- OUTSIDE RECORDS SUMMARY | 2025-05-19 06:59 | XMS_ITS | Encounter Summary ---
Author Organization [employer] Address 75 [facility] 7t [place] [address] Care Team Providers Care Core Drill Operator Name Role Phone Morgan Curran MD Primary Care Prov ider Gregorio Everett RN Unavailable [phone] Analisa Patino Unavailable Encounter Details Date Type Department Care Team (Late st Contact Info) Description 12/03/2024 Orders Only [facility] CHC MED & PEDS 505 [place], [place] [phone] Ebenezer Acuña MD 505 [place], [place] [phone] Unilateral subjective nonpulsatile tinnitus without hearing loss, [...] Upcoming Encounters Date Type Department Care Team ([facility] st Contact Info) Description 06/29/2025 8:30 AM EST Telemedicine [facility] MED & PEDS 505 [place] [address] Morgan Curran MD 505 [place] [address] documented as of this encounter Procedures Procedure Name Priority Date/Time Associated Diagnosis Comments MR BRAIN WO CONTRAST Routine 12/29/2024 10:33 AM EDT documented in this encounter Results * MR Brain w/o Contrast (12/29/2024 10:33 AM EDT) Anatomical Region Laterality Modality Brain Magnetic Resonan ce 12/29/2024 10:3 3 AM EDT Narrative 12/29/2024 11:49 AM EDT [place] [address] Magnetic Resonance Report Signed Patient: Ashley Olivares MR#: [id number] : 1970 Acct:[id number] Age/Sex: 54 / F ADM Date: 12/29/24 Loc: HO.MRI Attending Dr: Ebenezer Acuña MD Ordering Physician: Ebenezer Acuña MD Date of Service: 12/29/24 Procedure(s): MR head/brain wo con Accession Number(s): [id number] cc: Ebenezer Acuña MD; Morgan Curran MD [...] 12/29/24 1146 DD/ 1033 TD/TT: 12/29/24 1104 Social Services Specialist: Procedure Note Ricardoter, Image - 12/29/2024 [place] [address] Magnetic Resonance Report Signed Patient: Ashley OlivaresMR#: [id number] : 1970Acct:[id number] Age/Sex: 54 / FADM Date: 12/29/24 Loc: HO.MRI Attending Dr: Ebenezer Acuña MD Ordering Physician: Ebenezer Acuña MD Date of Service: 12/29/24 Procedure(s): MR head/brain wo con Accession Number(s): [id number] cc: Ebenezer Acuña MD; Morgan Curran MD [...] 12/29/24 1146 DD/ 1033 TD/TT: 12/29/24 1104 Social Services Specialist: us Ebenezer Acuña MD IMG MRI PROCEDURES Final Re sult documented in this encounter Visit Diagnoses Diagnosis Unilateral subjective nonpulsatile tinnitus without hearing loss, otoscopic finding, neurologic deficit, or head trauma- Primary documented in this encounter Additional Health Concerns Assessment Noted Time PHQ-9 Depression Total Score: 8 05/25/20 24 8:54 AM EDT documented as of this encounter Care Teams Core Drill Operator Relationship Specialty Start Date End Date MaradiagaMorgan Perera MD 505 [place] [address] PCP - General Internal Medicine 08/18/24 Gregorio Everett, RN 505 [place] [address] Registered Nurse Family Medicine 04/15/25 Analisa Patino 04/15/25 documented as of this encounter
--- OUTSIDE RECORDS SUMMARY | 2025-05-19 06:59 | XMS_ITS | Encounter Summary ---
Author Organization [employer] [facility] Address 75 [facility] 7t [place] [address] Care Team Providers Care Hand Shoe Cutter Name Role Phone Ashlee Meza MD Primary Care Provider [phone] Morgan Curran MD Primary Care Prov ider Gregorio Everett RN Unavailable [phone] Analisa Patino Unavailable Reason for Visit * Reason Onset Date Comments triage 12/04/2022 Encounter Details Date Type Department Care Team ([facility] st Contact Info) Description 12/04/2022 Telephone [facility] CHC MED & PEDS 505 [place], [place] [phone] Ashlee Meza MD 505 [place] [address] triage Social History Tobacco Use Types Packs/Day [...] 12/04/2022 11:13 AM EDT Triage call with [place] Assistant Broker ID [id number] Pt reports for two days now, itchy [...] Info) Description 06/29/2025 8:30 AM EST Telemedicine [facility] CHC MED & PEDS 505 [place] [address] Morgan Curran MD 505 [place] [address] documented as of this encounter Visit Diagnoses Not on filedocumented in this encounter Additional Health Concerns Assessment Noted Time PHQ-9 Depression Total Score: 5 10/31/19 23 9:17 AM EDT documented as of this encounter Care Teams Hand Shoe Cutter Relationship Specialty Start Date End Date Ashlee Meza MD [address] [place] [address] PCP - General Family Medicine 03/28/20 08/17/24 Morgan Curran MD 505 [place] [address] PCP - General Internal Medicine 08/18/24 Gregorio Everett, RN 505 [place] [address] Registered Nurse Family Medicine 04/15/25 Analisa Patino 04/15/25 documented as of this encounter
--- OUTSIDE RECORDS SUMMARY | 2025-05-19 07:00 | XMS_ITS | Encounter Summary ---
Author Organization [employer] Address 75 [facility] 7t [place] [address] Care Team Providers Care Accounting Reconciliation Clerk Name Role Phone Ashlee Meza MD Primary Care Provider [phone] Morgan Curran MD Primary Care Prov ider Gregorio Everett RN Unavailable [phone] Analisa Patino Unavailable Reason for Visit * Reason Onset Date Comments Nurse Triage 08/12/2024 Encounter Details Date Type Department Care Team (Late st Contact Info) Description 08/12/[address] [facility] MEDICINE 230 [place] [address] Ashlee Meza MD 505 [place], [place] [phone] Nurse Triage Social History Tobacco Use Types [...] 08/12/2024 3:04 PM EST Triage call [place] [facility] [id number]. Pt reports can speak Armenian. Triage continued in congolese at this time. Pt reports frequency , [...] The caller accepted this outcome. Contact pt [phone] documented in this encounter Plan of Treatment Upcoming Encounters Date Type Department Care Team (Late st Contact Info) Description 06/29/2025 8:30 AM EST Telemedicine [facility] CHC MED & PEDS 505 [place] [address] Morgan Curran MD 505 [place] [address] documented as of this encounter Visit Diagnoses Not on filedocumented in this encounter Additional Health Concerns Assessment Noted Time PHQ-9 Depression Total Score: 8 05/25/20 24 8:54 AM EDT documented as of this encounter Care Teams Accounting Reconciliation Clerk Relationship Specialty Start Date End Date Ashlee Meza MD 230 [place] [address] PCP - General Family Medicine 03/28/20 08/17/24 Morgan Curran MD 505 [place] [address] PCP - General Internal Medicine 08/18/24 Gregorio Everett, DEVIN [address] [place] [address] LIANNE Silvestre [address] Registered Nurse Family Medicine 04/15/25 Analisa Patino 04/15/25 documented as of this encounter
--- OUTSIDE RECORDS SUMMARY | 2025-05-19 07:00 | XMS_ITS | Encounter Summary ---
Author Organization [employer] Address 75 [facility] 7t [place] [address] Care Team Providers Care Internet Systems Administrator Name Role Phone Morgan Curran MD Primary Care Prov ider Gregorio Everett RN Unavailable [phone] Analisa Patino Unavailable Encounter Details Date Type Department Care Team (Late st Contact Info) Description 03/25/2025 Results Follow-Up [facility] MEDICINE 230 [place], [place] [phone] Sonya Isaacs, ANP 230 [place], [place] [phone] T4, Free Social History Tobacco Use Types [...] 06/29/2025 8:30 AM EST Telemedicine [facility] CHC MED & PEDS 505 [place] [address] Morgan Curran MD 505 [place] [address] documented as of this encounter Visit Diagnoses Not on filedocumented in this encounter Additional Health Concerns Assessment Noted Time PHQ-9 Depression Total Score: 8 05/25/20 24 8:54 AM EDT documented as of this encounter Care Teams Internet Systems Administrator Relationship Specialty Start Date End Date Morgan Curran MD 505 [place] [address] PCP - General Internal Medicine 08/18/24 Gregorio Everett, DEVIN 505 [place] [address] Registered Nurse Family Medicine 04/15/25 Analisa Patino 04/15/25 documented as of this encounter
--- OUTSIDE RECORDS SUMMARY | 2025-05-19 07:00 | XMS_ITS | Encounter Summary ---
Author Organization [employer] Address 75 [facility] 7[address] [place] [address] Care Team Providers Care Agricultural Engineering Technologist Name Role Phone Morgan Curran MD Primary Care Prov ider Gregorio Everett RN Unavailable [phone] Analisa Patino Unavailable Reason for Visit * Reason Onset Date Comments Med Refill 03/30/2025 Encounter Details Date Type Department Care Team (Late st Contact Info) Description 03/30/2025 Refill [facility] CHC MED & PEDS 505 [place], [place] [phone] Morgan Curran MD 505 [place] [address] Spasm of cervical paraspinous muscle Social History [...] Upcoming Encounters Date Type Department Care Team ([facility] st Contact Info) Description 06/29/2025 8:30 AM EST Telemedicine [facility] MED & PEDS 505 [place] [address] Morgan Curran MD [address] [place] [address] documented as of this encounter Visit Diagnoses Diagnosis Spasm of cervical paraspinous muscle Spasm of muscle documented in this encounter Additional Health Concerns Assessment Noted Time PHQ-9 Depression Total Score: 8 05/25/20 24 8:54 AM EDT documented as of this encounter Care Teams Agricultural Engineering Technologist Relationship Specialty Start Date End Date Morgan Curran MD 505 [place] [address] PCP - General Internal Medicine 08/18/24 Gregorio Everett, RN [address] [place] [address] Registered Nurse Family Medicine 04/15/25 Analisa Patino 04/15/25 documented as of this encounter
--- OUTSIDE RECORDS SUMMARY | 2025-05-19 07:00 | XMS_ITS | Encounter Summary ---
Author Organization [employer] Address 75 [facility] 7t [place] [address] Care Team Providers Care Shellfish Farming Supervisor Name Role Phone Morgan Curran MD Primary Care Prov ider Gregorio Everett RN Unavailable [phone] Analisa Patino Unavailable Reason for Visit * Reason Comments Med Refill Encounter Details Date Type Department Care Team ([facility] st Contact Info) Description 02/25/2025 Refill [facility] CHC MED & PEDS 505 [place], [place] [phone] Ashlee Meza MD 505 [place], [place] [phone] Social History Tobacco Use Types Packs/Day Years [...] Upcoming Encounters Date Type Department Care Team ([facility] st Contact Info) Description 06/29/2025 8:30 AM EST Telemedicine [facility] MED & PEDS 505 [place] [address] Morgan Curran MD 505 [place] [address] documented as of this encounter Visit Diagnoses Not on filedocumented in this encounter Additional Health Concerns Assessment Noted Time PHQ-9 Depression Total Score: 8 05/25/20 24 8:54 AM EDT documented as of this encounter Care Teams Shellfish Farming Supervisor Relationship Specialty Start Date End Date Morgan Curran MD 505 [place] [address] PCP - General Internal Medicine 08/18/24 Gregorio Everett, DEVIN [address] [place] [address] [place] [address] Registered Nurse Family Medicine 04/15/25 Analisa Patino 04/15/25 documented as of this encounter
--- OUTSIDE RECORDS SUMMARY | 2025-05-19 07:00 | XMS_ITS | Encounter Summary ---
Author Organization [employer] [facility] Address 75 [facility] 7 [place] [address] Care Team Providers Care Remote Pilot Operator Name Role Phone Morgan Curran MD Primary Care Prov ider Gregorio Everett RN Unavailable [phone] Analisa Patino Unavailable Reason for Referral * Consultation (Routine) - Closed Specialty Diagnoses / Procedures Referred By Maya schrader Referred To Contact Otolaryngology Diagnoses Unilateral subjective nonpulsatile tinnitus without hearing loss, otoscopic finding, neurologic deficit, or head trauma Ebenezer Acuña MD 505 [place] [address] Phone: tel: fax: [facility] [address] Phone: tel: fax: Referral ID Status Reason Start Date Expiration Date V isits Requested Visits Authorized [id number] Closed Specialty Services Required 12/29/2024 12/29/2025 1 1 Encounter Details Date Type Department Care Team (Late st Contact Info) Description 12/29/2024 Orders Only [facility] CHC MED & PEDS [address] [place] [address] Ebenezer Acuña MD 505 [place] [address] Unilateral subjective nonpulsatile tinnitus without hearing loss, [...] Info) Description 06/29/2025 8:30 AM EST Telemedicine [facility] CHC MED & PEDS [address] [place] [address] Morgan Curran MD 505 [place] [address] Scheduled Referrals Name Type Priority Associated Diagnoses [...] documented as of this encounter Care Teams Remote Pilot Operator Relationship Specialty Start Date End Date Morgan Curran MD 505 [place] [address] PCP - General Internal Medicine 08/18/24 Gregorio Everett, RN 505 [place] [address] Registered Nurse Family Medicine 04/15/25 Analisa Patino 04/15/25 documented as of this encounter
--- OUTSIDE RECORDS SUMMARY | 2025-05-19 07:00 | XMS_ITS | Encounter Summary ---
Author Organization [employer] Address [address] [facility] 7t [place] [address] Care Team Providers Care Celluloid Trimmer Name Role Phone Ashlee Meza MD Primary Care Provider [phone] Morgan Curran MD Primary Care Prov ider Gregorio Everett RN Unavailable [phone] Analisa Patino Unavailable Encounter Details Date Type Department Care Team (Late st Contact Info) Description 09/14/2022 Orders Only [facility] MEDICINE [address] [place] [address] Adriana Brock MD [address] [place] [address] Hypothyroidism, unspecified type (Primary Dx) Social History [...] Info) Description 06/29/2025 8:30 AM EST Telemedicine [facility] MED & PEDS [address] [place] [address] Morgan Curran MD [address] [place] [address] documented as of this encounter Procedures Procedure Name Priority Date/Time Associated Diagnosis Comments TSH W/REFLEX TO FT4 Routine 2022 8 :28 AM EDT Hypothyroidism, unspecified type HEPATITIS C ANTIBODY Routine 10/03/2022 6:48 AM EST Hypothyroidism, unspecified type HIV ANTIBODY/ANTIGEN ([facility]) Routine 10/03/2022 6:48 AM EST Hypothyroidism, unspecified [...] Free T4 1.16 0.32 - 4.0 uIU/mL [facility] 2022 8:28 AM EDT 2022 8:28 AM EDT [facility] External Provider LAB BLO OD ORDERABLES Final Result [facility] [address] [place] [phone] * Hepatitis??D Virus (HDV) Antibody, Total (10/03/2022 6:48 AM EST) Hepatitis D Antibody, Total NEGATIVE [facility] Comment:REFERENCE RANGE: NEG ATIVE INTERPRETIVE [...] and its analyticalperformance characteristics have been determinedby [employer]. It has not been cleared orapproved by FDA. This assay has been validatedpursuant to the CLIA regulations and is used forclinical purposes.THIS TEST WAS PERFORMED AT:[employer] [id number] [facility] [place] [address]BEKHTKARLEY OROZCO MD,PHD,LYNN 10/03/2022 6:48 AM EST 10/03/2022 6:48 AM EST [facility] External Provider LAB BLO OD ORDERABLES Final Result Performing Organization Address [facility] Co de Phone Number [facility] [address] [place] [phone] * Hepatitis B Core??Antibody (IgM) (10/03/2022 6:48 AM EST) Hepatitis B Core Antibody IgM NON-REACTI VE NON-REACT KIM [facility] Comment:THIS TEST WAS PERFOR MED AT:[employer] [address] [id number] ALBERTS MD 10/03/2022 6:48 AM EST 10/03/2022 6:48 AM EST [facility] External Provider LAB BLO OD ORDERABLES Final Result Performing Organization Address [facility] Phone Number [facility] [address] [place] [phone] * (ABNORMAL) Hepatitis B Virus DNA, Quantitative, Real-Time PCR (10/03/2022 6:48 AM EST) Pathologist [facility] Hepatitis B Viral DNA Qn - cp 2.83(A) NOT DETECTED Log IU/mL [facility] Comment:This test was perfor med using Real-Time Polymerase ChainReaction.Reportable Range: 10 IU/mL to 1,000,000,000 IU/mL.(1.00 Log IU/mL to 9.00 Log IU/mL).The analytical performance characteristics of this assayhave been determined by [employer]. Themodifications have not been cleared or approved by the[facility]. This assay has been validated pursuant to the CLIAregulations and is used for clinical purposes.THIS TEST WAS PERFORMED AT:[employer] [place] [id number] ALBERTS MD Hepatitis B Viral DNA Qn-IU/mL 683(A) NOT DETECTED IU/mL [facility] 10/03/2022 6:48 AM EST 10/03/2022 6:48 AM EST [facility] External Provider LAB BLO OD ORDERABLES Final Result Performing Organization Address [facility] Co de Phone Number [facility] [address] [place] [phone] * (ABNORMAL) Hepatitis B Surface Antigen with Reflex Confirmation (10/03/2022 6:48 AM EST) Hepatitis B Surface Ag Confirmed Pos(A) Negative [facility] Comment:RESULTS OF CALLED TO AND READ BACK BY AT 1126 BY WENCESLAO.Results of HBSAG called to and read back byon 10/05/22 at 1134 by WENCESLAO. 10/03/2022 6:48 AM EST 10/03/2022 6:48 AM EST [facility] External Provider LAB BLO OD ORDERABLES Final Result Performing Organization Address [facility] de Phone Number [facility] [address] [place] [phone] * HIV Ab/Ag ([place]) (10/03/2022 6:48 AM EST) HIV AB/AG Nonreactive Nonreactive [facility] Comment:HIV-1 p24 Ag and/or HIV-1/HIV-2 Ab not detected.A test result that is nonreactive does not exclude thepossibility of exposure to or infection with HIV-1 and/orHIV-2. Nonreactive results in this assay for individualswith prior exposure to HIV-1 and/or HIV-2 may be due toantigen and antibody levels that are below the limit ofdetection of this assay.The [employer] HIV Ag/Ab Combo assay result andsupplemental assay results should be interpreted inconjunction with the patient's clinical presentation,history and other laboratory results. If the results areinconsistent with clinical evidence, additional testing issuggested to confirm the result. 10/03/2022 6:48 AM EST 10/03/2022 6:48 AM EST [facility] External Provider LAB BLO OD ORDERABLES Final Result Performing Organization Address [facility] Co de Phone Number [facility] [address] [place] [phone] * Hepatitis C Ab (10/03/2022 6:48 AM EST) Pathologist [facility] Hepatitis C Antibody Nonreactive Nonreactive [facility] Comment:Antibodies to HCV no t detected; does not exclude early acuteHCV infection. 10/03/2022 6:48 AM EST 10/03/2022 6:48 AM EST [facility] External Provider LAB BLO OD ORDERABLES Final Result Performing Organization Address [facility] de Phone Number [facility] [address] [place] [phone] * Hepatitis B Surface Antibody, Qualitative (10/03/2022 6:48 AM EST) Pathologist [facility] ~Hepatitis B Surface Antibody NONREACTIVE Nonreactive [facility] Comment:Nonreactive: < 8.00 mIU/mL 10/03/2022 6:48 AM EST 10/03/2022 6:48 AM EST [facility] External Provider LAB BLO OD ORDERABLES Final Result Performing Organization Address [facility] de Phone Number [facility] [address] [place] [phone] * Albumin (10/03/2022 6:48 AM EST) Pathologist [facility] Albumin Level 4.1 3.5 - 5.0 g/dL [facility] 10/03/2022 6:48 AM EST 10/03/2022 6:48 AM EST [facility] External Provider LAB BLO OD ORDERABLES Final Result Performing Organization Address [facility] de Phone Number [facility] [address] [place] [phone] * ALT (10/03/2022 6:48 AM EST) Alanine Aminotransferase 24 0 - 31 U/L [facility] 10/03/2022 6:48 AM EST 10/03/2022 6:48 AM EST [facility] External Provider LAB BLO OD ORDERABLES Final Result Performing Organization Address [facility] Co de Phone Number [facility] [address] [place] [phone] * AST (10/03/2022 6:48 AM EST) Aspartate Amino Transferase 22 5 - 31 U/L [facility] 10/03/2022 6:48 AM EST 10/03/2022 6:48 AM EST [facility] External Provider LAB BLO OD ORDERABLES Final Result Performing Organization Address [facility] de Phone Number [facility] [address] [place] [phone] * Bilirubin, Total (10/03/2022 6:48 AM EST) Bilirubin, Total 0.3 0.0 - 1.0 mg/dL [facility] 10/03/2022 6:48 AM EST 10/03/2022 6:48 AM EST [facility] External Provider LAB BLO OD ORDERABLES Final Result Performing Organization Address [facility] Co de Phone Number [facility] [address] [place] [address] [phone] * Glucose, Random (10/03/2022 6:48 AM EST) Glucose 113 60 - 115 mg/dL [facility] 10/03/2022 6:48 AM EST 10/03/2022 6:48 AM EST [facility] External Provider LAB BLO OD ORDERABLES Final Result Performing Organization Address [facility] Number [facility] [address] [place] [phone] * Creatinine, Serum (10/03/2022 6:48 AM EST) Pathologist [facility] Creatinine, Serum 0.86 0.5 - 1.4 mg/dL [facility] Estimated Glomerular Filt Rate >60 [facility] Comment:NOTE: For -Am erican individuals, multiply the result by 1.210.Chronic Kidney Disease: Estimated GFR < 60 mL/min/1.12k0Giwdlw Kidney Disease: Estimated GFR < 15 mL/min/1.73m2 10/03/2022 6:48 AM EST 10/03/2022 6:48 AM EST [facility] External Provider LAB BLO OD ORDERABLES Final Result Performing Organization Address [facility] Co de Phone Number [facility] [address] [place] [phone] * (ABNORMAL) CBC auto differential (10/03/2022 6:48 AM EST) White Blood Count 4.7(L) 4.8 - 10.8 X10*3/uL [facility] Red Blood Count 4.22 4.20 - 5.50 X10*6/uL [facility] Hemoglobin 12.8 12.0 - 16.0 g/dl [facility] Hematocrit 38.2 37.0 - 47.0 % [facility] Mean Corpuscular Volume 90.5 80.0 - 98.0 fL [facility] Mean Corpuscular Hemoglobin 30.3 27.0 - 33.0 pg [facility] Mean Corpuscular HGB Conc 33.5 31.0 - 35.0 g/dl [facility] Red Cell Distribution Width 12.5 11.0 - 16.0 % [facility] Platelet Count 249 160 - 400 X10*3/uL [facility] Mean Platelet Volume 10.4 9.4 - 12.3 fL [facility] Neutrophils Percent Auto 50.8 45 - 73 % [facility] Imm Gran Pct Auto 0.4 0.0 - 0.4 % [facility] Lymphocytes Percent Auto 38.8 20 - 40 % [facility] Monocytes Percent Auto 6.0 2 - 11 % [facility] Eosinophils Percent Auto 3.4 0 - 4 % [facility] Basophils Percent Auto 0.6 0 - 2 % [facility] NRBC Pct Auto 0.0 0.0 - 0.2 /100WBC [facility] Neutrophils Absolute Auto 2.4 2.0 - 8.3 x10*3/uL [facility] Imm Gran Abs Auto 0.02 0.00 - 0.03 X10*3/uL [facility] Lymphocytes Absolute Auto 1.8 1.2 - 4.9 X10*3/uL [facility] Monocytes Absolute Auto 0.3 0.1 - 1.2 X10*3/uL [facility] Eosinophils Absolute Auto 0.2 0.0 - 0.4 X10*3/uL [facility] Basophils Absolute Auto 0.0 0.0 - 0.2 X10*3/uL [facility] NRBC Abs Auto 0.000 0.0 - 0.012 X10*3/uL [facility] 10/03/2022 6:48 AM EST 10/03/2022 6:48 AM EST us [facility] External Provider LAB BLO OD ORDERABLES Final Result [facility] [address] [place] [phone] documented in this encounter Visit Diagnoses Diagnosis Hypothyroidism, unspecified type- Primary documented in this encounter Care Teams Celluloid Trimmer Relationship Specialty Start Date End Date Ashlee Meza MD [address] [place] [phone] PCP - General Family Medicine 03/28/20 08/17/24 Morgan Curran MD [address] [place] [address] PCP - General Internal Medicine 08/18/24 Gregorio Everett RN [address] [place] [address] Registered Nurse Family Medicine 04/15/25 Analisa Patino 04/15/25 documented as of this encounter
--- OUTSIDE RECORDS SUMMARY | 2025-05-19 07:00 | XMS_ITS | Encounter Summary ---
Author Organization [employer] Address [address] [facility] 7t [place] [address] Care Team Providers Care Aeronautical Products Sales Engineer Name Role Phone Morgan Curran MD Primary Care Prov ider Gregorio Everett RN Unavailable [phone] Analisa Patino Unavailable Reason for Visit * Reason Onset Date Comments Nurse Triage 09/15/2024 Encounter Details Date Type Department Care Team (Late st Contact Info) Description 09/15/2024 Telephone [facility] MEDICINE [address] [place] [address] Morgan Curran MD [address] [place] [address] Nurse Triage Social History Tobacco Use Types [...] called back, requesting an appointment, given [facility] appt tomorrow. Future Appointments Date Time Provider Department Center 09/16/2024 2:20 PM [facility] Insurance verified as active per Real Time Eligibility in [facility]. * Telephone Encounter - Farrah Valdivia RN [...] Upcoming Encounters Date Type Department Care Team ([facility] st Contact Info) Description 06/29/2025 8:30 AM EST Telemedicine [facility] MED & PEDS [address] [place] [address] Morgan Curran MD [address] [place] [address] documented as of this encounter Visit Diagnoses Diagnosis Spasm of cervical paraspinous muscle Spasm of muscle Moderate persistent asthma, unspecified whether complicated documented in this encounter Additional Health Concerns Assessment Noted Time PHQ-9 Depression Total Score: 8 05/25/20 24 8:54 AM EDT documented as of this encounter Care Teams Aeronautical Products Sales Engineer Relationship Specialty Start Date End Date Morgan Curran MD [address] [place] [address] PCP - General Internal Medicine 08/18/24 rGegorio Everett, RN [address] [place] [phone] Registered Nurse Family Medicine 04/15/25 Analisa Patnio 04/15/25 documented as of this encounter
--- OUTSIDE RECORDS SUMMARY | 2025-05-19 07:00 | XMS_ITS | Encounter Summary ---
Author Organization [employer] Address [address] [facility] 7t [place] [address] Care Team Providers Care Speech Pathology Teacher Name Role Phone Ashlee Meza MD Primary Care Provider [phone] Morgan Curran MD Primary Care Prov ider Gregorio Everett RN Unavailable [phone] Analisa Patino Unavailable Reason for Visit * Reason Comments Med Refill Encounter Details Date Type Department Care Team ([facility] Contact Info) Description 03/12/2024 Refill [facility] MED & PEDS [address] [place], [place] [phone] Ashlee Meza MD [address] [place] [address] Social History Tobacco Use Types Packs/Day Years [...] Info) Description 06/29/2025 8:30 AM EST Telemedicine [facility] MED & PEDS [address] [place] [address] Morgan Curran MD [address] [place] [address] documented as of this encounter Visit Diagnoses Not on filedocumented in this encounter Additional Health Concerns Assessment Noted Time PHQ-9 Depression Total Score: 6 04/22/20 23 9:18 AM EDT documented as of this encounter Care Teams Speech Pathology Teacher Relationship Specialty Start Date End Date Ashlee Meza MD [address] [place] [phone] PCP - General Family Medicine 03/28/20 08/17/24 Morgan Curran MD [address] [place], [place] [phone] PCP - General Internal Medicine 08/18/24 Gregorio Everett, DEVIN [address] [place] [address] Registered Nurse Family Medicine 04/15/25 Analisa Patino 04/15/25 documented as of this encounter
--- OUTSIDE RECORDS SUMMARY | 2025-05-19 07:00 | XMS_ITS | Encounter Summary ---
Author Organization [employer] Address [address] [facility] 7t [place] [address] Care Team Providers Care Senior Account Representative Name Role Phone Ashlee Meza MD Primary Care Provider [phone] Morgan Curran MD Primary Care Prov ider Gregorio Everett RN Unavailable [phone] Analisa Patino Unavailable Reason for Visit * Reason Comments Med Refill Encounter Details Date Type Department Care Team ([facility] Contact Info) Description 08/05/[address] [facility] CHC MED & PEDS [address] [place], [place] [phone] Ashlee Meza MD [address] [place] [address] Social History Tobacco Use Types Packs/Day Years [...] 06/29/2025 8:30 AM EST Telemedicine [facility] MED & PEDS [address] [place] [address] Morgan Curran MD [address] [place] [address] documented as of this encounter Visit Diagnoses Not on filedocumented in this encounter Additional Health Concerns Assessment Noted Time PHQ-9 Depression Total Score: 6 04/22/20 23 9:18 AM EDT documented as of this encounter Care Teams Senior Account Representative Relationship Specialty Start Date End Date Ashlee Meza MD [address] [place] [address] PCP - General Family Medicine 03/28/20 08/17/24 Morgan Curran MD [address] [place], [place] [phone] PCP - General Internal Medicine 08/18/24 Gregorio Everett, DEVIN [address] [place] [address] Registered Nurse Family Medicine 04/15/25 Analisa Patino 04/15/25 documented as of this encounter
--- OUTSIDE RECORDS SUMMARY | 2025-05-19 07:00 | XMS_ITS | Encounter Summary ---
Author Organization [employer] Address [address] [facility] [address] [address] Care Team Providers Care Transportation Escort Name Role Phone Morgan Curran MD Primary Care Prov ider Gregorio Everett RN Unavailable Analisa Patino Unavailable Reason for Visit * Reason Onset Date Comments Nurse Triage 09/23/2024 Encounter Details Date Type Department Care Team ([facility] st Contact Info) Description 09/23/2024 Telephone [facility] MED [facility] PEDS [address] [place], [place] [phone] Morgan Curran MD [address] [place] [address] Nurse Triage Social History Tobacco Use Types [...] 09/23/2024 2:04 PM EST Triage call with [facility] [place] [id number], Carlos Alberto Pt reports abdominal pain, above umbilicus for last few days. Pt reports one episode of diarrhea yesterday but, nothing more. Neg for vomiting, fever or urinary symptoms. Pt reports this pain comes and goes but, is not ending. Pt is not . ASK apt in [facility]C today at 320p. Pt agrees with [...] 06/29/2025 8:30 AM EST Telemedicine [facility] MED [facility] PEDS [address] [place] [address] Morgan Curran MD [address] [place] [address] documented as of this encounter Visit Diagnoses Not on filedocumented in this encounter Additional Health Concerns Assessment Noted Time PHQ-9 Depression Total Score: 8 05/25/20 24 8:54 AM EDT documented as of this encounter Care Teams Transportation Escort Relationship Specialty Start Date End Date Morgan Curran MD [address] [place] [address] PCP - General Internal Medicine 08/18/24 Gregorio Everett, RN [address] [place] [address] Registered Nurse Family Medicine 04/15/25 Analisa Patino 04/15/25 documented as of this encounter
--- OUTSIDE RECORDS SUMMARY | 2025-05-19 07:00 | XMS_ITS | Encounter Summary ---
Author Organization [employer] Address [address] [facility] 7t [place] [address] Care Team Providers Care Surveyor Helper Rod Name Role Phone Morgan Curran MD Primary Care Prov ider Gregorio Everett RN Unavailable [phone] Analisa Patino Unavailable Reason for Visit * Reason Onset Date Comments Med Refill 09/15/2024 Encounter Details Date Type Department Care Team (Late st Contact Info) Description 09/15/[address] [facility] CH[facility] MED & PEDS [address] [place], [place] [phone] Ashlee Meza MD [address] [place], [place] [phone] Spasm of cervical paraspinous muscle Social History [...] Info) Description 06/29/2025 8:30 AM EST Telemedicine [facility] MED & PEDS [address] [place] [address] Morgan Curran MD [address] [place] [address] documented as of this encounter Visit Diagnoses Diagnosis Spasm of cervical paraspinous muscle Spasm of muscle documented in this encounter Additional Health Concerns Assessment Noted Time PHQ-9 Depression Total Score: 8 05/25/20 24 8:54 AM EDT documented as of this encounter Care Teams Surveyor Helper Rod Relationship Specialty Start Date End Date Morgan Curran MD [address] [place] [address] PCP - General Internal Medicine 1/21/25 Gregorio Everett, RN [address] [place] [address] Registered Nurse Family Medicine 04/15/25 Analisa Patino 04/15/25 documented as of this encounter
--- OUTSIDE RECORDS SUMMARY | 2025-05-19 07:00 | XMS_ITS | Encounter Summary ---
Author Organization [employer] Address [address] [place] [address] Care Team Providers Care Newspaper Stuffer Name Role Phone Morgan Curran MD Primary Care Prov ider Gregorio Everett RN Unavailable [phone] Analisa Patino Unavailable Reason for Visit * Reason Comments Care Management C3CM- Initial assess ment/enrollment Encounter Details Date Type Department Care Team ([facility] st Contact Info) Description 05/11/2025 Patient Outreach [facility] [address], [place] [phone] Morgan Curran MD [address], [place] [phone] Care Management (C3CM- Initial assessment/enrollmen t) Social [...] Health Questionnaire-2 Score 4 04/28 1:52 PM Gregorio Damian RN * Little interest or pleasure in doing things Answer Date of Assessment Author Nearly every day 05/11/2025 1:52 PM Gregorio Damian RN * Feeling down, depressed, or hopeless Answer Date of Assessment Author Several days 05/11/2025 1:52 PM [place] Gregorio Everett RN * Trouble falling or staying asleep, or sleeping too much Answer Date of Assessment Author Nearly every day 05/11/2025 1:52 PM EDT Gregorio Everett RN * Feeling tired or having little energy Answer Date of Assessment Author Nearly every day 05/11/2025 1:52 PM Gregorio Damian RN * Poor appetite or overeating Answer Date of Assessment Author Several days 05/11/2025 1:52 PM Gregorio Damian RN * Feeling bad about yourself - [...] Ashley Olivares is a 54 year old Bengali speaking female with prior medical history of hypothyroidism, allergic rhinitis, asthma, anxiety, depression, hypertension. Patient reports that she follows multiple specialist, including: [facility], E[place], [facility] GI, ophthalmology and behavioral health (BHN). Patient reports that she has an upcoming ENT appointment on 05/23/25 to discuss MRI results and planof care. Patient reports that she missed her uro-gynecology appointment on 04/15/25 due to feeling unwell, states appointment was rescheduled but is unsure of new date and time. CM called [facility] and spoke with Alva, who confirmed that the appointment has been rescheduled for 05/28/25 at 9:00 AM. Patient reports that she has a GI appointment at [facility] on 05/17/25 @ 9:45 AM ([facility] Patient reports persistent tinnitus (ringing) from the left ear for several months now, which she finds very bothersome. Patient reports that she had a recent hearing test that came back WNL. Patient reports receiving regular dental care at [facility] and states she attends appointments frequently. Patient reports that she was seen in March at [facility] [place] and was diagnosed with cataracts. Patient states she was prescribed two types of eye drops to use for a specified duration but was unable to complete the course and has since misplaced the medication. CM contacted [facility], explained the situation, and was informed that a message will be sent to the appropriate staff. The office will follow up with the patient directly or with CMif they are unable to reach her. Patient reports that she went to [facility] ED on 04/14/25 due to abdominal pain, [...] in gas. Patient reports that he receives SNAPbenefits but occasionally runs out of food. Patient [...] Patient reports that she used to receive [employer] services in the past but not currently [...] understanding, and able to repeat back to keno writer. A follow up call will be [...] Info) Description 06/29/2025 8:30 AM EST Telemedicine [facility] [address] [place] [address] Morgan Curran MD [address] [place] [address] documented as of this encounter Visit Diagnoses Not on filedocumented in this encounter Additional Health Concerns Assessment Noted Time PHQ-9 Depression Total Score: 12 025 1:52 PM EDT documented as of this encounter Care Teams Newspaper Stuffer Relationship Specialty Start Date End Date Morgan Curran MD [address] [place] [address] PCP - General Internal Medicine 08/18/24 Gregorio Everett, DEVIN [address] [place] [address] Registered Nurse Family Medicine 04/15/25 Analisa Patino 04/15/25 documented as of this encounter
--- OUTSIDE RECORDS SUMMARY | 2025-05-19 07:00 | XMS_ITS | Clinical Summary ---
Author Organization [employer] Address [address] [facility] [address] [place] [address] Care Team Providers Care Wind Plant Manager Name Role Phone Morgan Curran MD Primary Care Prov ider Gregorio Everett RN Unavailable [phone] Analisa Patino Unavailable Allergies Active Allergy [...] Additional Information Patient not taking.Reported on 05/11/2025 Acetaminophen Extra Strength 500 MG tabletIndicatio ns:Spasm of cervical paraspinous muscle TAKE ONE TABLET EVERY 6 HOURS NEEDED FOR PAIN 50 tablet 12/12/19 25 Active albuterol (Ventolin HFA) 108 [...] crush or chew. 90 capsule 3 02/24/20 026 Active clonazePAM (KlonoPIN) 1 MG [...] USE 30 each 5 04/27/20 25 Active loratadine (Claritin) 10 MG tabletIndicatio ns:Allergic rhinitis, unspecified seasonality, unspecified trigger TAKE ONE TABLET DAILY NEEDED ALLERGIES 90 tablet 1 05/17/20 25 Active Arnuity Ellipta 100 MCG/ACT inhaler INHALE ONE PUFF EVERY MORNING, RINSE MOUTH AFTER USE 30 each 5 06/08/20 24 025 Discontinued loratadine (Claritin) 10 MG tabletIndicatio ns:Allergic rhinitis, unspecified seasonality, unspecified trigger TAKE ONE TABLET BY MOUTH EVERY DAY FOR ALLERGIES 90 tablet 1 11/21/19 25 025 Discontinued Active Problems Problem Noted Date [...] Provider Department Center 09/23/2023 9:45 AM KARLIE HoganP [facility]IC[facility] 09/23/2023 1:00 PM Nargis Miner PharmD [facility] 10/14/2023 10:00 AM Ashlee Meza MD [facility] Assessment & Plan (03/15/2023 9:20 AM [...] reflux disease) Hypothyroidism 06/27/2022 Assessment & Plan (04/20/2025 12:41 [...] B viral hepatitis (CMS/HCC) 012 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 Mixed anxiety and depressive disorder [...] Team Description 05/17/2025 Plan of Care Documentation [address] [address] 05/15/2025 Refill [facility] [address] [place] [address] Ebenezer Acuña MD Allergic rhinitis, unspecified seasonality, unspecified trigger 05/11/2025 Patient Outreach [facility] [address] [place] [address] Morgan Curran MD Care Management (C3CM- Initial assessment/enrollme nt) 05/10/2025 Patient Outreach [address] [phone] Morgan Curran MD Care Coordination (C3 -[facility] Analisa Augustinez telephone call outreach) 04/29/2025 Patient Outreach [address] [phone] Morgan Curran MD 04/26/2025 Refill [facility] [address] [place] [address] Ashlee Meza MD 04/20/2025 11:15 AM EDT Office Visit [facility] [address] [place] [address] Morgan Curran MD Hypothyroidism, unspecified type (Primary Dx); Dietary counseling; Exercise counseling; Bipolar affective disorder in remission (CMS/HCC); Mild intermittent asthma without complication; Primary hypertension; Gastroesophageal reflux disease without esophagitis 04/20/2025 Travel 04/16/2025 Telephone [facility] [address] [place] [address] Morgan Curran MD Nurse Triage 04/15/2025 Patient Outreach [address] [address] Morgan Curran MD Care Coordination (C3 CM-IZZY Patino telephone call outreach) 04/15/2025 Patient Outreach [address] [phone] Morgan Curran MD 04/15/2025 Patient Outreach [address] [address] Morgan Curran MD 04/15/2025 Patient Outreach [address] [phone] Morgan Curran MD 04/14/2025 Orders Only GENERIC EXTERNAL DATA DEPARTMENT Provider, Generic External Data 04/01/2025 Orders Only GENERIC EXTERNAL DATA DEPARTMENT Provider, Generic External Data 03/30/2025 Refill [facility] [address] [place], [place] [phone] Morgan Curran MD Spasm of cervical paraspinous muscle 03/30/2025 Refill [facility] [address] [place], [place] [phone] Morgan Curran MD Mixed anxiety and depressive disorder 03/25/2025 Results Follow-Up [address] [phone] Sonya Isaacs ANP TSH W/Reflex to FT4 03/25/2025 Results Follow-Up [address] [phone] Sonya Isaacs ANP T4, Free 03/24/2025 Orders Only GENERIC EXTERNAL DATA DEPARTMENT Provider, Generic External Data 03/24/2025 Telephone [facility] [address] [place] [address] Morgan Curran MD Change PCP 02/25/2025 Refill [facility] [address] [place] [address] Ashlee Meza MD 02/23/2025 2:30 PM EDT Telemedicine [facility] [address] [place], [place] [phone] Morgan Curran MD Left thyroid nodule (Primary Dx); Mixed anxiety and depressive disorder; Primary hypertension; Hypothyroidism, unspecified type; Pelvic pressure in female 02/23/2025 Travel 02/19/2025 Orders Only [facility] [address] [place] [address] Sonya Isaacs ANP Hypothyroidism, unspecified type (Primary Dx) 02/19/2025 Results Follow-Up [facility] [address] [place] [address] Sonya Isaacs ANP TSH W/Reflex to FT4 02/19/2025 Orders Only [facility] [address] [place] [address] Morgan Curran MD from Last 3 Months [...] Info) Description 06/29/2025 8:30 AM EST Telemedicine [facility] [address] [place], [place] [phone] Morgan Curran MD [address] [place], [place] [phone] Health Maintenance Due Date Last Done Comments CT Colonography 1970 FIT DNA/Cologuard 1970 FIT 1970 FOBT 1970 Sigmoidoscopy 1970 Hepatitis B Vaccines (1 of 3 - 19+ 3-dose series) 1988 COVID-19 Vaccine (2024- season) 2025 03/15/2021, 02/21/2021, 01/12/2021 Influenza Vaccine [...] Completed 01/13/2018, 01/19/20 HIV Screening Completed 10/03/2022, 03/2022, 11/09/2021, Additional [...] Routine 11/20/2024 3:31 PM EDT Deficiency of fgyejec-0-godhfumpi dehydrogenase THINPREP IMAGING PAP AND HPV MRNA [...] (04/14/2025 5:48 AM EDT) Color Urine Yellow [facility] Appearance Urine Clear [facility] PH 6.0 5.0 - 9.0 [facility] Glucose Urine UA Negative Negative mg/dL [facility] Urine Blood Negative Negative [facility] Specific [place] - Urine 1.025 1.005 - 1.025 [facility] Urine Protein Trace Neg-Trace mg/dL [facility] Urine Ketones Trace Negative mg/dL [facility] Nitrite Urine Negative Negative [facility] Leukocyte Esterase Urine Small (1+)(A) Negative [facility] RBC Urine 0-2 0 - 2 /HPF [facility] Urine WBC 6-10(A) 0 - 5 /HPF [facility] Urine Squamous Epithelial Cell 0-2 0 - 2 /HPF [facility] Urine Bacteria None Seen None Seen [facility] Hyaline Casts, Urine 0-2 0 - 2 /LPF [facility] 04/14/2025 5:48 AM EDT 04/14/2025 5:51 AM EDT Narrative [facility] - 04/14/2025 6:02 AM EDT Urine, Clean Catch us Generic External Data Provider LAB URINE ORDERAB LES Final Result [facility] [address] [place] [phone] * (ABNORMAL) CBC auto differential (04/14/2025 5:48 AM EDT) Only the most recent of3 resultswithin the time period is included. White Blood Count 5.7 4.8 - 10.8 X10*3/uL [facility] Red Blood Count 4.10(L) 4.20 - 5.50 X10*6/uL [facility] Hemoglobin 12.9 12.0 - 16.0 g/dl [facility] Hematocrit 36.9(L) 37.0 - 47.0 % [facility] Mean Corpuscular Volume 90.0 80.0 - 98.0 fL [facility] Mean Corpuscular Hemoglobin 31.5 27.0 - 33.0 pg [facility] Mean Corpuscular HGB Conc 35.0 31.0 - 35.0 g/dl [facility] Red Cell Distribution Width 12.3 11.0 - 16.0 % [facility] Platelet Count 262 160 - 400 X10*3/uL [facility] Mean Platelet Volume 9.9 9.4 - 12.3 fL [facility] Neutrophils Percent Auto 49.7 45 - 73 % [facility] Imm Gran Pct Auto 0.3 0.0 - 0.4 % [facility] Lymphocytes Percent Auto 39.0 20 - 40 % [facility] Monocytes Percent Auto 6.3 2 - 11 % [facility] Eosinophils Percent Auto 4.0 0 - 4 % [facility] Basophils Percent Auto 0.7 0 - 2 % [facility] NRBC Pct Auto 0.0 0.0 - 0.2 /100WBC [facility] Neutrophils Absolute Auto 2.8 2.0 - 8.3 x10*3/uL [facility] Imm Gran Abs Auto 0.02 0.00 - 0.03 X10*3/uL [facility] Lymphocytes Absolute Auto 2.2 1.2 - 4.9 X10*3/uL [facility] Monocytes Absolute Auto 0.4 0.1 - 1.2 X10*3/uL [facility] Eosinophils Absolute Auto 0.2 0.0 - 0.4 X10*3/uL [facility] Basophils Absolute Auto 0.0 0.0 - 0.2 X10*3/uL [facility] NRBC Abs Auto 0.000 0.0 - 0.012 X10*3/uL [facility] 04/14/2025 5:48 AM EDT 04/14/2025 5:51 AM EDT Generic External Data Provider LAB BLOOD ORDERAB LES Final Result Performing Organization Address City/[facility] Co de Phone Number [facility] [address] [place] [phone] * Culture, Urine, Routine (04/14/2025 5:48 AM EDT) Urine Urine specimen obtained by clean catch procedure / Unknown 04/14/2025 5:48 AM EDT 04/14/2025 6:03 AM EDT Comment:UACC Narrative [facility] - 04/15/2025 12:18 PM EDT Urine Culture Report Result Urine Culture < 10,000 cfu/ml Specimen Source: Urine clean catch Generic External Data Provider LAB MICROBIOLOGY - GENERAL ORDERABLES Final Result Performing Organization Address [facility] Co de Phone Number [facility] [address] [place] [phone] * Lipase (04/14/2025 5:48 AM EDT) Lipase 43 8 - 78 U/L [facility] 04/14/2025 5:48 AM EDT 04/14/2025 5:51 AM EDT us Generic External Data Provider LAB BLOOD ORDERAB LES Final Result [facility] [address] [place] [phone] * (ABNORMAL) Comprehensive Metabolic Panel (04/14/2025 5:48 AM EDT) Only the most recent of2 resultswithin the time period is included. Sodium 140 135 - 145 mmol/L [facility] Potassium 3.4 3.3 - 5.1 mmol/L [facility] Chloride 110(H) 96 - 108 mmol/L [facility] Carbon Dioxide 23 22 - 29 mmol/L [facility] Anion Gap 10(L) 12 - 20 [facility] Urea Nitrogen (BUN) 13 9 - 16 mg/dL [facility] Creatinine, Serum 1.07 0.5 - 1.4 mg/dL [facility] Creatinine Clr Calc Pharmacy 49.1 [facility] Comment:Provided height and weight: 160.02 cm,61.235 kg.eGFR (calculated from the MDRD study equation) and eCrCl(calculated from the Cockcroft-Gault equation) are based ondifferent parameters and may not yield comparable results.If eCrCl result is absurd, please check patient'sheight/weight. Estimated Glomerular Filt Rate 53 [facility] Comment:Chronic Kidney Disea se: Estimated GFR < 60 mL/min/1.62o3Dqrbcx Kidney Disease: Estimated GFR < 15 mL/min/1.73m2 Glucose 137(H) 60 - 115 mg/dL [facility] Calcium 9.1 8.4 - 10.2 mg/dL [facility] Bilirubin, Total 0.3 0.0 - 1.0 mg/dL [facility] Aspartate Amino Transferase 31 5 - 31 U/L [facility] Alanine Aminotransferase 32(H) 0 - 31 U/L [facility] Total Protein 7.2 6.5 - 8.0 g/dL [facility] Albumin Level 4.2 3.5 - 5.0 g/dL [facility] Alkaline Phosphatase 86 39 - 117 U/L [facility] 04/14/2025 5:48 AM EDT 04/14/2025 5:51 AM EDT us Generic External Data Provider LAB BLOOD ORDERAB LES Final Result Performing Organization Address City/[facility]/ZIP Co de Phone Number [facility] [address] [place] [phone] * TSH W/Reflex to FT4 (04/01/2025 9:26 AM EDT) Only the most recent of3 resultswithin the time period is included. TSH reflex Free T4 0.48 0.32 - 4.0 uIU/mL [facility] Blood Venous blood specimen / Unknown 04/01/2025 9:26 AM EDT 04/01/2025 1:55 PM EDT us Morgan Huffman MD LAB BLOOD ORDERABL ES Final Result Performing Organization Address [facility] Co de Phone Number [facility] [address] [place] [phone] * T4, Free (04/01/2025 9:26 AM EDT) Only the most recent of3 resultswithin the time period is included. Free T4 (Free Thyroxine) 0.86 0.71 - 1.85 ng/dL [facility] 04/01/2025 9:26 AM EDT 04/01/2025 1:57 PM EDT us Generic External Data Provider LAB BLOOD ORDERAB LES Final Result Performing Organization Address City/[facility]/ZIP Co de Phone Number [facility] [address] [place] [phone] * Glucose (04/01/2025 9:26 AM EDT) Pathologist [facility] Glucose Fasting 99 60 - 99 mg/dL [facility] 04/01/2025 9:26 AM EDT 04/01/2025 1:57 PM EDT Generic External Data Provider LAB BLOOD ORDERAB LES Final Result Performing Organization Address [facility] Co de Phone Number [facility] [address] [place] [phone] * Hepatic Function Panel (04/01/2025 9:26 AM EDT) Only the most recent of2 resultswithin the time period is included. Pathologist [facility] Bilirubin, Direct 0.2 0.0 - 0.5 mg/dL [facility] 04/01/2025 9:26 AM EDT 04/01/2025 1:57 PM EDT Generic External Data Provider LAB BLOOD ORDERAB LES Final Result Performing Organization Address [facility] de Phone Number [facility] [address] [place] [phone] * (ABNORMAL) Lipid Panel, Standard (04/01/2025 9:26 AM EDT) Only the most recent of2 resultswithin the time period is included. Triglycerides 131 <150 mg/dL [facility] Comment:Desirable Triglyceri de: less than 150 mg/dLBorderline High Triglyceride 150-199 mg/dLHigh Triglyceride: 200-499 mg/dLVery High Triglyceride: greater than or equal to 5OO mg/dL Cholesterol 184 <200 mg/dL [facility] Comment:Desirable Cholestero l: less than 200 mg/dLBorderline High Cholesterol: 200-239 mg/dLHigh Cholesterol: greater than 239 mg/dL LDL Cholesterol Calculated 111(H) <100 mg/dL [facility] Comment:Desirable LDL: less than 100 mg/dLNear Optimal/Above Optimal LDL: 110- 129 mg/dLBorderline High LDL: 130-159 mg/dLHigh LDL: 160-189 mg/dLVery High LDL: greater than or equal to 190 mg/dL HDL Cholesterol 47 >40 mg/dL [facility] Comment:Desirable HDL: great er than 40 mg/dL Note: This HDL assay may give artificially low results in patients with liver disease. 04/01/2025 9:26 AM EDT 04/01/2025 1:57 PM EDT us Generic External Data Provider LAB BLOOD ORDERAB LES Final Result Performing Organization Address City/State/[facility] Co de Phone Number [facility] [address] [place] [phone] * US Thyroid (03/25/2025 3:13 PM EDT) Anatomical Region Laterality Modality Head, Neck Ultrasound 03/25/2025 3:13 PM EDT Narrative 03/25/2025 3:43 PM EDT [address] [address] Ultrasound Report Signed Patient: Abilio Olivares MR#: [id number] 73 : 1970 Acct:[id number] Age/Sex: 54 / F ADM Date: 03/25/25 Loc: HO.US Attending Dr: Morgan Huffman MD Ordering Physician: Morgan Curran MD Date of Service: 03/25/25 Procedure(s): US thyroid Accession Number(s): [id number] cc: Morgan Curran MD EXAMINATION: US THYROID [...] if >= 0.5 cm Electronically signed by: Mosoe Mata MD 03/25/2025 03:39 PM EDT Dictated By: Moose Mata MD Signed By: <Electronically signed by Moose Mata MD in OV> 03/25/25 1539 DD/ 1513 TD/TT: 03/25/25 1517 Etcher Enameling: Procedure Note Donotuseinterpreter, Image - 03/25/2025 [place] [address] Ultrasound Report Signed Patient: Abilio Olivares#: [id number] 73 : 1970Acct:[id number] Age/Sex: 54 / FADM Date: 03/25/25 Loc: HO.US Attending Dr: Morgan Huffman MD Ordering Physician: Morgan Curran MD Date of Service: 03/25/25 Procedure(s): US thyroid Accession Number(s): [id number] cc: Morgan Curran MD EXAMINATION: US THYROID [...] 03/25/25 1539 DD/ 1513 TD/TT: 03/25/25 1517 Etcher Enameling: us Morgan Huffman MD IM US PROCEDURES Final Result * (ABNORMAL) Comprehensive Metabolic Panel, Fasting (03/24/2025 10:30 AM EDT) Sodium 139 135 - 145 mmol/L [facility] Potassium 4.3 3.3 - 5.1 mmol/L [facility] Chloride 109(H) 96 - 108 mmol/L [facility] Carbon Dioxide 23 22 - 29 mmol/L [facility] Anion Gap 11(L) 12 - 20 [facility] Urea Nitrogen (BUN) 13 9 - 16 mg/dL [facility] Creatinine, Serum 0.85 0.5 - 1.4 mg/dL [facility] Estimated Glomerular Filt Rate >60 [facility] Comment:Chronic Kidney Disea se: Estimated GFR < 60 mL/min/1.66r4Exjvdk Kidney Disease: Estimated GFR < 15 mL/min/1.73m2 Glucose Fasting 97 60 - 99 mg/dL [facility] Calcium 9.5 8.4 - 10.2 mg/dL [facility] Bilirubin, Total 0.6 0.0 - 1.0 mg/dL [facility] Aspartate Amino Transferase 34(H) 5 - 31 U/L [facility] Alanine Aminotransferase 26 0 - 31 U/L [facility] Total Protein 7.2 6.5 - 8.0 g/dL [facility] Albumin Level 4.2 3.5 - 5.0 g/dL [facility] Alkaline Phosphatase 88 39 - 117 U/L [facility] 03/24/2025 10:3 0 AM EDT 03/24/2025 2:37 PM EDT us Generic External Data Provider LAB BLOOD ORDERAB LES Final Result [facility] [address] [place] [phone] * POCT HGB A1C (11/20/2024 3:31 PM EDT) Hemoglobin A1C 5.9 4.0 - 6.0 % QC Media Lot # [id number] Lot# Expiration Date ,193 Blood 11/20/2024 3:31 PM EDT us Ebenezer Acuña MD POINT OF CARE TEST ENTER/ED IT ORDERABLES Final Result * ThinPrep Imaging Pap and HPV mRNA E6/E7 (03/17/2024 10:00 AM EDT) HPV nRNA E6/E7 Not Detected Not Detected [facility] Comment:Methodology: Transcr iption-Mediated AmplificationThis assay detects E6/E7 viral messenger RNA (mRNA) from 14high-risk HPV types (16,18,31,33,35,39,45,51,52,56,58,59,66,68).Cervical sources are required for HPV testing.If a vaginal source from a patient who has had atotal hysterectomy with removal of cervix wassubmitted, please contact the testing laboratoryfor alternative testing options.For additional information, please refer tohttp://education.utoopia/faq/YMV541n3(This link if provided for information/educational purposes only.)THIS TEST WAS PERFORMED AT:[employer] [address] [phone] ALBERTS MD SOURCE: SEE NOTE [facility] Comment:None given Report Status: [facility] Clinical Information: SEE NOTE [facility] Comment:None given LMP: SEE NOTE [facility] Comment:NONE GIVEN Prev. PAP: SEE NOTE [facility] Comment:NONE GIVEN Prev. BX: SEE NOTE [facility] Comment:NONE GIVEN Statement Of Adequacy: SEE [facility] Comment:SATISFACTORY FOR [employer]ON [employer]ATION General Categorization: [facility] Interpretation/Result: SEE NOTE [facility] Comment:Cytology Results: Ne gative for intraepitheliallesion or malignancy.Atrophic pattern; predominantly parabasal cells Cytology Comment SEE NOTE [facility] Comment:This Pap test has be en evaluated with computerassisted technology. Loader Machine: SEE NOTE [facility] Comment:DMM, CT(ASCP)CT scre ening location: [place] [address] Review Loader Machine: [facility] Pathologist [facility] PAP Infection [facility] See Note SEE NOTE [facility] Comment:EXPLANATORY NOTE:The Pap is a screening test for cervical cancer. It isnot a diagnostic test and is subject to false negativeand false positive results. It is most reliable when asatisfactory sample, regularly obtained, is submittedwith relevant clinical findings and history, and whenthe Pap result is evaluated along with historic andcurrent clinical information. 03/17/2024 10:0 0 AM EDT 03/17/2024 2:30 PM EDT Narrative [facility] - 03/20/2024 2:55 PM EDT SEE SCANNED RESULTS IN EMR us Ashlee Meza MD LAB PATHOLOGY ORDERABLES Erika rich Result [facility] [address] [place] [address] [phone] * BI Mammogram Screening Tomosynthesis Bilateral (01/21/2024 11:36 AM EDT) Anatomical Region Laterality Modality Breast Bilateral Mammography 01/21/2024 11:3 6 AM EDT Narrative 02/19/2024 11:23 PM EDT [facility] [address] [place] [address] Mammography Report Signed Patient: Abilio Olivares MR#: [id number] 73 : 1970 Acct:[id number] Age/Sex: 53 / F ADM Date: 01/21/24 Loc: HO.MAMMO Attending Dr: Ashlee Meza MD Ordering Physician: Ashlee Meza MD Results: 2Beni gn Findings Date of Service: 01/21/24 Follow Up: 1 Year From [facility] Mammogram Procedure(s): MM tomosynthesis screening BI Accession Number(s): [id number] cc: Ashlee Meza MD EXAMINATION: MM SCREENING [...] by Jennifer Sargent MD in OV> 02/19/24 2289 DD/ 1136 TD/TT: Etcher Enameling: Procedure Note Donotuseinterpreter, Image - 02/19/2024 [facility] [address] [place] [address] Mammography Report Signed Patient: Abilio OlivaresMR#: [id number] 73 : 1970Acct:[id number] Age/Sex: 53 / FADM Date: 01/21/24 Loc: [place] Attending Dr: Ashlee Meza MD Ordering Physician: Ashlee Meza MDResults: 2Beni gn Findings Date of Service: 01/21/24Follow Up: 1 Year From Orig ina Mammogram Procedure(s): MM tomosynthesis screening BI Accession Number(s): [id number] cc: Ashlee Meza MD EXAMINATION: MM SCREENING [...] in OV> 02/19/24 2319 DD/ 1136 TD/TT: Etcher Enameling: Ashlee Meza MD IMG BI PROCEDURES Edited Resu lt - Final * Hepatitis C Ab (10/03/2022 6:48 AM EST) Hepatitis C Antibody Nonreactive Nonreactive [facility] Comment:Antibodies to HCV no t detected; does not exclude early acuteHCV infection. 10/03/2022 6:48 AM EST 10/03/2022 6:48 AM EST [facility] External Provider LAB BLO OD ORDERABLES Final Result [facility] [address] [place] [phone] * HIV Ab/Ag ([facility]) (10/03/2022 6:48 AM EST) HIV AB/AG [...] the limit ofdetection of this assay.[employer] HIV Ag/Ab Combo assay result andsupplemental assay results should be interpreted inconjunction with the patient's clinical presentation,history and other laboratory results. If the results areinconsistent with clinical evidence, additional testing issuggested to confirm the result. 10/03/2022 6:48 AM EST 10/03/2022 6:48 AM EST [facility] External Provider LAB BLO OD ORDERABLES Final Result [facility] [address] [place] [phone] [phone] * Hm Colonoscopy (09/20/2020) Colonoscopy Normal Normal Narrative Kaia Miranda - 09/20/2020 Recommended 5 year follow up Historical Provider HEALTH MAINTENANCE Edited Result - Final from Last 3 Months or Most Recently Relevant to Health Maintenance Insurance [facility] [address] [place] [address] [employer] Care Teams Wind Plant Manager Relationship Specialty Start Date End Date Morgan Curran MD [address] [place] [address] PCP - General Internal Medicine 08/18/24 Gregorio Everett, RN [address] [place] [address] Registered Nurse Family Medicine 04/15/25 Analisa Patino 04/15/25
--- OUTSIDE RECORDS SUMMARY | 2025-05-19 07:00 | XMS_ITS | Encounter Summary ---
Author Organization [employer] Address 75 [facility] 7t [place] [address] Care Team Providers Care Spark Plug Assembler Name Role Phone Ashlee Meza MD Primary Care Provider [phone] Morgan Curran MD Primary Care Prov ider Gregorio Everett RN Unavailable [phone] Analisa Patino Unavailable Reason for Visit * Reason Comments Med Refill Encounter Details Date Type Department Care Team ([facility] Contact Info) Description 05/21/2023 Refill [facility] MED & PEDS [address] [place], [place] [phone] Ashlee Meza MD [address] [place] [address] Social History Tobacco Use Types Packs/Day Years [...] 06/29/2025 8:30 AM EST Telemedicine [facility] MED & PEDS [address] [place] [address] Morgan Curran MD [address] [place] [address] documented as of this encounter Visit Diagnoses Not on filedocumented in this encounter Additional Health Concerns Assessment Noted Time PHQ-9 Depression Total Score: 6 04/22/20 23 9:18 AM EDT documented as of this encounter Care Teams Spark Plug Assembler Relationship Specialty Start Date End Date Ashlee Meza MD [address] [place] [address] PCP - General Family Medicine 03/28/20 08/17/24 Morgan Curran MD [address] [place], [place] [phone] PCP - General Internal Medicine 08/18/24 Gregorio Everett, DEVIN [address] [place] [address] Registered Nurse Family Medicine 04/15/25 Analisa Patino 04/15/25 documented as of this encounter
--- OUTSIDE RECORDS SUMMARY | 2025-05-19 07:00 | XMS_ITS | Encounter Summary ---
Author Organization [employer] Address 75 [facility] 7t [place] [address] Care Team Providers Care Ticket Taker Ferryboat Name Role Phone Morgan Curran MD Primary Care Prov ider Gregorio Everett RN Unavailable Analisa Patino Unavailable Reason for Visit * Reason Onset Date Comments Nurse Triage 11/20/2024 Encounter Details Date Type Department Care Team (Late st Contact Info) Description 11/20/2024 Telephone [facility] [address] [place] [address] Morgan Curran MD [address] [place] [address] Nurse Triage Social History Tobacco Use Types [...] 9:34 AM EDT Triage call with S Public Information Relations Manager ID [id number] Pt reports a buzzing sound in left ear started 2 days ago. Pt also has sx of sneezing, eyes irritated, dizziness. Neg for pain or loss of hearing. Sound is constant. This does interfere with normal activities. ASK apt in [facility] @ 240pm 11/20/24. Pt agrees with [...] Upcoming Encounters Date Type Department Care Team ([facility] st Contact Info) Description 06/29/2025 8:30 AM EST Telemedicine [facility] MED & PEDS [address] [place] [address] Morgan Curran MD [address] [place] [address] documented as of this encounter Visit Diagnoses Not on filedocumented in this encounter Additional Health Concerns Assessment Noted Time PHQ-9 Depression Total Score: 8 05/25/20 24 8:54 AM EDT documented as of this encounter Care Teams Ticket Taker Ferryboat Relationship Specialty Start Date End Date Morgan Curran MD [address] [place] [address] PCP - General Internal Medicine 08/18/24 Gregorio Everett, DEVIN [address] [place] [address] Registered Nurse Family Medicine 04/15/25 Analisa Patino 04/15/25 documented as of this encounter
--- OUTSIDE RECORDS SUMMARY | 2025-05-19 07:00 | XMS_ITS | Encounter Summary ---
Author Organization [employer] Address 75 [facility] 7t [place] [address] Care Team Providers Care School Traffic Supervisor Name Role Phone Morgan Curran MD Primary Care Prov ider Gregorio Everett RN Unavailable Analisa Patino Unavailable Reason for Visit * Reason Comments Med Refill Encounter Details Date Type Department Care Team ([facility] st Contact Info) Description 05/15/2025 Refill [facility] MED & PEDS [address] [place], [place] [phone] Ebenezer Acuña MD [address] [place] [address] Allergic rhinitis, unspecified seasonality, unspecified trigger Social [...] 06/29/2025 8:30 AM EST Telemedicine [facility] MED & PEDS [address] [place], [place] [phone] Morgan Curran MD [address] [place] [address] documented as of this encounter Visit Diagnoses Diagnosis Allergic rhinitis, unspecified seasonality, unspecified trigger documented in this encounter Additional Health Concerns Assessment Noted Time PHQ-9 Depression Total Score: 12 025 1:52 PM EDT documented as of this encounter Care Teams School Traffic Supervisor Relationship Specialty Start Date End Date Morgan Curran MD [address] [place] [address] PCP - General Internal Medicine 08/18/24 Gregorio Everett, DEVIN [address] [place] [address] Registered Nurse Family Medicine 04/15/25 Analisa Patino 04/15/25 documented as of this encounter
--- OUTSIDE RECORDS SUMMARY | 2025-05-19 07:00 | XMS_ITS | Data Portability ---
Author Organization LIANNE - JOHN COLEMAN MD [facility], Main Office Address [address] [place] [phone] Assessment Encounter Date Assessment Date Assessment LastModified by Organization Details LastModified Time 09/19/2023 09/19/2023 VIDEO. telehealth. [employer]. 19 min. [place] home [place] [email or web address] Not available 09/19/2023 19:27:02 08/27/2024 08/27/2024 Telehealth. 17 min; [place]; [place] in [place]; [employer] [email or web address] Not available 08/28/2024 10:31:52 11/25/2024 11/25/2024 Telehealth. 19 min; [place]; [place]; [employer] [email or web address] Not available 11/25/2024 12:55:45 01/25/2025 01/25/2025 Telehealth. 17; [place]. [place]; [place]; [employer] [email or web address] Not available 01/25/2025 13:26:27 Plan of Treatment Reminders Order Date Submit Date Provider Last Modified By Organization Details Last Modified Time Details Appointments HBV FOLLOW UP 2024 02:00P Tj Vickers MD Not available Not available Not available Lab hepatitis B DNA, quantitat anastacia, serum [address] (Lab), [address] [place] [address], [address], 02/09/2025 13:10:38 CBC w/ diff [address] (Lab), [address] [place] [address], [address], 02/09/2025 13:10:38 RPR (rapid plasma reagin), serum [address] [place] [address] (Lab), [address] [place] [address], [address], 02/09/2025 13:10:38 CMP, serum or plasma [address] [place] [address] (Lab), [address] [place] [address], [address], 02/09/2025 13:10:38 hepatitis B DNA, quantitat anastacia, serum [address] [place] [address] (Lab), [address] [place] [address], [address], 12/02/2024 13:46:59 CBC w/ diff [address] [place] [address] (Lab), [address] [place] [address], [address], 12/02/2024 13:46:59 CT + NG DNA, PCR, unspecifi ed specimen [address] [place] [address] (Lab), [address] [place] [address], [address], 12/02/2024 13:46:59 hepatitis C virus Ab, serum [address] [place] [address] (Lab), [address] [place] [address], [address], 12/02/2024 13:46:59 RPR (rapid plasma reagin), serum [address] [place] [address] (Lab), [address] [place] [address], [address], 12/02/2024 13:47:00 HIV (1+2) Ab screen, serum [address] (Lab), [address] [place] [address], [address], 12/02/2024 13:47:00 CMP, serum or plasma [address] [place] [address] (Lab), [address] [place] [address], [address], 12/02/2024 13:47:00 hepatitis B DNA, quantitat anastacia, serum [address] (Lab), [address] [place] [address], [address], 09/04/2024 08:48:24 CBC w/ diff [address] (Lab), [address] [place] [address], [address], 09/04/2024 08:48:25 ALT (alanine aminotran sferase), serum or plasma [address] (Lab), [address] [place] [address], [address], 09/04/2024 08:48:25 AST/SGOT (aspartat e aminotran sferase), serum or plasma [address] (Lab), [address] [place] [address], [address], 09/04/2024 08:48:25 CT + NG DNA, PCR, unspecifi ed specimen [address] [place] [address] (Lab), [address] [place] [address], [address], 09/04/2024 08:48:25 creatinin e w/ estimated GFR (eGFR), serum or plasma [address] [place] [address] (Lab), [address] [place] [address], [address], 09/04/2024 08:48:25 hepatitis C virus Ab, serum [address] [place] [address] (Lab), [address] [place] [address], [address], 09/04/2024 08:48:25 RPR (rapid plasma reagin), serum [address] [place] [address] (Lab), [address] [place] [address], [address], 09/04/2024 08:48:25 HIV (1+2) Ab screen, serum [address] [place] [address] (Lab), [address] [place] [address], [address], 09/04/2024 08:48:25 bilirubin , total, serum or plasma [address] [place] [address] (Lab), [address] [place] [address], [address], 09/04/2024 08:48:25 albumin, serum or plasma [address] [place] [address] (Lab), [address] [place] [address], [address], 09/04/2024 08:48:25 hepatitis B DNA, quantitat anastacia, serum [address] [place] [address] (Lab), [address] [place] [address], [address], 02/14/2024 09:27:22 CBC w/ diff [address] (Lab), [address] [place] [address], [address], 02/14/2024 09:27:23 ALT (alanine aminotran sferase), serum or plasma [address] (Lab), [address] [place] [address], [address], 02/14/2024 09:27:23 AST/SGOT (aspartat e aminotran sferase), serum or plasma [address] (Lab), [address] [place] [address], [address], 02/14/2024 09:27:23 CT + NG DNA, PCR, unspecifi ed specimen [address] (Lab), [address] [place] [address], [address], 02/14/2024 09:27:23 creatinin e w/ estimated GFR (eGFR), serum or plasma [address] (Lab), [address] [place] [address], [address], 02/14/2024 09:27:23 hepatitis C virus Ab, serum [address] (Lab), [address] [place] [address], [address], 02/14/2024 09:27:23 RPR (rapid plasma reagin), serum [address] (Lab), [address] [place] [address], [address], 02/14/2024 09:27:23 HIV (1+2) Ab screen, serum [address] (Lab), [address] [place] [address], [address], 02/14/2024 09:27:24 bilirubin , total, serum or plasma [address] (Lab), [address] [place] [address], [address], 02/14/2024 09:27:24 albumin, serum or plasma [address] (Lab), [address] [place], [address], 02/14/2024 09:27:24 Referral None recorded. Procedures None recorded. Surgeries None recorded. Imaging US, abdomen, complete - HCC screen 2024 025 [email or web address] [facility] (Imaging), [address] [place] [address], [address], 12/02/2024 13:46:46 US, abdomen - HBV. HCC SCreen; hx fatty liver; and GB adenomyom atosis per previous scan [address] (Imaging), [address] [place] [address], [address], 09/11/2024 09:03:34 Medication Orders Loratadin e-D 10 mg-240 mg tablet,ex tended release 24 hr 2024 025 [facility] #[id number], [phone] [place], [address], 11/25/2024 12:56:33 Patient TargetsNo targets recorded. Patient InstructionsNo instructions recorded. Reason for Referral None Reported. Results Created Date Observation Date Name Description Value Unit Range Abnormal Flag Note LastModifiedBy Organization Detail LastModifiedTime 09/20/19 24 09/18/2023 US, liver No observ ation record ed. [email or web address] (Imaging) [address] [place] [address], [address], 09/23/2023 13:02:29 Result Notes None recorded. Problems Name Problem SNOMED Code Status Onset Date Resolution Date Notes Provider Name and Address Organization Details Recorded Time Steatotic liver disease 305285001 Active 2023 John Vickers MD [address] [place] [address], [phone] LIANNE VICKERS MD [facility] 10:35:09 Adenomyomatosi s of gallbladder 550522958 Active 2023 John Vickers MD [address] [place] [address] LIANNE chakraborty, [address], LIANNE VICKERS MD [facility] 10:24:47 Problem Notes None recorded. [...] Note 571 John Vickers MD Main Office [address] [place] [address] LIANNE CHAKRABORTY [address] 04/29/2023 12:56:09 04/30/2023 17:08:59 Chronic type B viral hepatitis 77645946 B18.1 HBV. monitor labs; no tx. no [...] Plan of care reviewed Steatotic liver disease 201258968 K76.0 diet and exercise reviewedav oid ETOH.incre ase water intake. 1993 John Vickers MD Main Office [address] [place] [address] LIANNE CHAKRABORTY [address] 08/27/2023 10:39:49 08/27/2023 11:01:55 Chronic type B viral hepatitis 06532736 B18.1 HBV.monito r labs; no tx. no [...] PreP availabili tyPlan of care reviewed Adult [facility] th examination 961100223 Z00.00 labs ordered 69512 John Vickers MD Main Office [address] [place] [address] 09/19/2023 10:01:15 11/04/2023 13:55:01 Chronic type B viral hepatitis 65173875 B18.1 HBV.monito r labs; no tx. no [...] of care reviewed Adenomyoma tosis of gallbladder 776435216 K82.8 will see GI; referred by PCP. 89873 John Vickers MD Main Office [address] [place] [address] 02/07/2024 09:16:44 02/07/2024 10:45:21 Chronic type B viral hepatitis 06770989 B18.1 HBV.monito r labs; no tx. no [...] of care reviewed Adenomyoma tosis of gallbladder 866841076 K82.[address] scan reports done at [place] Steatotic liver disease 409683615 K76.0 diet and exercise reviewedav oid ETOH.incre ase water intake.vit E suggested. 94896 John Vickers MD Main Office [address] [place] [address] 08/28/2024 10:19:34 09/10/2024 15:08:10 Chronic type B viral hepatitis 58142727 B18.1 HBV.monito r labs; no tx. no [...] of care reviewed Adenomyoma tosis of gallbladder 935388521 K82.[address] [place] Steatotic liver disease K76.0 diet and exercise reviewedav oid ETOH.incre ase water intake.ivy [place]ht loss reviewedu/ [place] abd [address]78 John Vickers MD Main Office [address] [place] [address] 11/25/2024 12:50:10 11/25/2024 13:23:26 Chronic type B viral hepatitis 59848568 B18.1 HBV.monito r labs; no tx. no [...] reviewedu/ s abd HCC csreen Nasal congestion 3827309 0 R09.81 05467 flonase qdloratadi ne D [place] loratadine for congestion /[place] [address] John Vickers MD Main Office [address] [place] [address] 01/25/2025 13:13:40 01/25/2025 13:44:43 Chronic type B viral hepatitis 08361126 B18.1 HBV.monito r labs; no tx. no [...] Sanchez Member ID Guarantor Name 08/28/2024 1 [place] [facility] Ashley Marshall [id number] Ashley Olivares 11/20/2024 1 [facility] [id number] Ashley Olivares [id number] Ashley Olivares 08/28/2024 2 [place] [facility] Ashleyabhi Olivares [id number] Ashleyabhi Olivares 01/26/2025 1 [place] [facility] Ashleyabhi Olivares [id number] Ashley Olivares Notes Date Note Type Note [...] eats. no weight loss. no fever. no rupqwwtr80/2023 HBV labs not done; ASLt/AST wnl; eGFR [...] abdno new medical issues John Vickers MD [address] [place] [address], [address], LIANNE VICKERS MD [facility] 09/22/2023 21:33:42 02/07/2024 text/html ROS as noted in the HPI f/u HBV.not on tx by choice.08/28/2023 Fibrosure F0; HDV neghad CT scan done in [place]. due to u/s 08/2023 that shows adenomyomatosis of GB; was present on 2022.;no other concerns. no abd pain. no n.v.d, abdominal discomfort after she eats. no weight loss. no fever. no ytocntja77/2023 HBV labs not done; ASLt/AST wnl; eGFR [...] male sexual partner John Vickers MD [address] [place], [address], LIANNE VICKERS MD [facility] 02/07/2024 14:52:16 08/27/2024 text/html ROS as noted in the HPI f/u HBV.not on tx by choice.07/2024 HBV KL=553; ALT/AST wnl; eGFE>60; negative HIV and negative syphillis. neg GC/chlamydia08/28/2023 Fibrosure F0; HDV neghad u/s and CT scan done in [place]. due to u/s 08/2023 that shows adenomyomatosis of GB; was present on 2022.;no other concerns. no abd pain. no n.v.d, abdominal discomfort after she eats. no weight loss. no fever. no jaundicemed list reviewedno new meds nor OTCdenies ETOH use. denies drug useno new medical issueshas one male partner; denies sexual activityno STI sxshe reports household is vaccinated John Vickers MD [address] [place] [address], [phone], LIANNE VICKERS MD [facility] 08/28/2024 10:34:13 11/25/2024 text/html ROS [...] neg; HCV neg; ALT/AST wnl; eGFR>6007/2024 HBV GY=774; ALT/AST wnl; eGFE>60; negative HIV and negative syphillis. neg GC/chlamydia08/28/2023 Fibrosure F0; HDV neghad u/s and CT scan done in [place]. due to u/s 08/2023 that shows adenomyomatosis of GB; was present on 2022.; John Vickers MD [address] [place] [address], [address], LIANNE VICKERS MD [facility] 11/25/2024 13:02:12 01/25/2025 text/html ROS [...] neg; HCV neg; ALT/AST wnl; eGFR>6007/2024 HBV NB=942; ALT/AST wnl; eGFE>60; negative HIV and negative syphillis. neg GC/chlamydia08/28/2023 Fibrosure F0; HDV neghad u/s and CT scan done in [place]. due to u/s 08/2023 that shows adenomyomatosis of GB; was present on 2022.; John Vickers MD [address] [place] [address], [phone], LIANNE - JOHN VICKERS MD [facility] 01/25/2025 13:27:08 OBGyn Episode No OBEpisode recorded.
--- OUTSIDE RECORDS SUMMARY | 2025-05-19 07:00 | XMS_ITS | Encounter Summary ---
Author Organization [employer] Address 75 [facility] [address]t [place] [address] Care Team Providers Care Auto Vinyl Top Installer Name Role Phone Morgan Curran MD Primary Care Prov ider Gregorio Everett RN Unavailable [phone] Analisa Patino Unavailable Encounter Details Date Type Department Care Team (Late st Contact Info) Description 05/17/2025 Plan of Care Documentation [facility] MEDICINE [address] [place] [address] Social History Tobacco Use Types Packs/Day Years [...] the past 12 months, has t he [employer], gas, oil or water [employer] threatened to shut off services in your [...] Info) Description 06/29/2025 8:30 AM EST Telemedicine [facility] MED & PEDS [address] [place], [place] [phone] Morgan Curran MD [address] [place] [address] documented as of this encounter Visit Diagnoses Not on filedocumented in this encounter Additional Health Concerns Assessment Noted Time PHQ-9 Depression Total Score: 12 025 1:52 PM EDT documented as of this encounter Care Teams Auto Vinyl Top Installer Relationship Specialty Start Date End Date Morgan Curran MD [address] [place] [address] PCP - General Internal Medicine 08/18/24 Gregorio Everett RN [address] [place] [address] Registered Nurse Family Medicine 04/15/25 Analisa Patino 04/15/25 documented as of this encounter
--- OUTSIDE RECORDS SUMMARY | 2025-05-19 07:00 | XMS_ITS ---
Author Organization [employer] Address [address] [place] [address] 7 [place] [address] Care Team Providers Care Brake Liner Name Role Phone Morgan Curran MD Primary Care Prov ider Gregorio Everett RN Unavailable [phone] Analisa Patino Unavailable CHW Complex Status:Enrolled (Active) Start date:04/15/2025 Enrollment date:04/15/2025 Enrollment reason:ADT Feed Overview ED- Pt went [place] [facility] [place]. Case Team Name Relationship Phone Analisa Patino(Responsible Staff) Continued Care and Services Coordination
--- OUTSIDE RECORDS SUMMARY | 2025-05-19 07:00 | XMS_ITS | Encounter Summary ---
Author Organization [employer] [facility] Address [address] [place] [address] 7 [place] [address] Care Team Providers Care Lap Machine Operator Name Role Phone Ashlee Meza MD Primary Care Provider [phone] Morgan Curran MD Primary Care Prov ider Gregorio Everett RN Unavailable [phone] Analisa Patino Unavailable Encounter Details Date Type Department Care Team (Late Contact Info) Description 08/07/2022 Telephone [facility] MED & PEDS [address] [place], [place] [phone] Ashlee Meza MD [address] [place], [place] [phone] Social History Tobacco Use Types Packs/Day Years [...] Info) Description 06/29/2025 8:30 AM EST Telemedicine [facility] MED & PEDS [address] [place], [place] [phone] Morgan Curran MD [address] [place], [place] [phone] documented as of this encounter Visit Diagnoses Not on filedocumented in this encounter Care Teams Lap Machine Operator Relationship Specialty Start Date End Date Ashlee Meza MD [address] [place] [address] PCP - General Family Medicine 03/28/20 08/17/24 Morgan Curran MD [address] [place] [address] PCP - General Internal Medicine 08/18/24 Gregorio Everett RN [address] [place] [address] Registered Nurse Family Medicine 04/15/25 Analisa Patino 04/15/25 documented as of this encounter
--- OUTSIDE RECORDS SUMMARY | 2025-05-19 07:00 | XMS_ITS ---
Author Organization [employer] Address [address] [place] [address] 7 [place] [address] Care Team Providers Care Cio Name Role Phone Morgan Curran MD Primary Care Prov ider Gregorio Everett RN Unavailable [phone] Analisa Patino Unavailable CM Complex Status:Enrolled (Active) Start date:04/15/2025 Enrollment date:05/11/2025 Enrollment reason:ADT Feed Overview ED- Pt went to [facility] on 04/14/25. Case Team Name Relationship Phone Gregorio Eveertt RN(Responsible Staff) Registered Lisa jordan [phone] Continued Care and Services Coordination
[2025-05-19 08:36] LABS: HBS Num1 1.30 mIU/mL (0-7.99); ~Hepatitis B Surface Antibody NONREACTIVE (Nonreactive)
[2025-05-19 09:29] LABS: HBsAGNum2 Reactive; HBsAGNum3 Reactive; Hepatitis B Surface Antigen Retest CNFM (Negative)
[2025-05-20 15:19] LABS: Hepatitis B Viral DNA Qn - cp 3.22 Log IU/mL (NOT DETECTED); Hepatitis B Viral DNA Qn-IU/mL 1670 IU/mL (NOT DETECTED)
== END 2025-05-19 06:58 | disposition home or self-care (01) ==
LOC: HO.LAB 06:57
PROVIDERS: PCP Internal Medicine; Visit Provider Internal Medicine
DX: Z11.59 Encounter for screening for other viral diseases (principal); I10 Essential (primary) hypertension; B19.10 Unspecified viral hepatitis B without hepatic coma; R10.9 Unspecified abdominal pain
CPT/HCPCS: 36415; 82088; 83520; 84244; 86692; 86706; 86707; 87340; 87350; 87517

== ENCOUNTER 2025-05-31 10:56 | Outpatient (REF) | payer MEDICAID, SELFPAY ==
[2025-05-31 13:07] LABS: MANUAL DIFF FLAG NO
[2025-05-31 13:11] LABS: Hematocrit 36.0 % (37.0-47.0); Hemoglobin 11.6 g/dl (12.0-16.0); Imm Gran Abs Auto 0.01 X10*3/uL (0.00-0.03); Imm Gran Pct Auto 0.2 % (0.0-0.4); Lymphocytes Absolute Auto 1.8 X10*3/uL (1.2-4.9); Mean Corpuscular HGB Conc 32.2 g/dl (31.0-35.0); Mean Corpuscular Hemoglobin 30.4 pg (27.0-33.0); Mean Corpuscular Volume 94.2 fL (80.0-98.0); NRBC Abs Auto 0.000 X10*3/uL (0.0-0.012); NRBC Pct Auto 0.0 /100WBC (0.0-0.2); Platelet Count 240 X10*3/uL (160-400); Red Blood Count 3.82 X10*6/uL (4.20-5.50); White Blood Count 4.7 X10*3/uL (4.8-10.8)
--- OUTSIDE RECORDS SUMMARY | 2025-05-31 13:38 | XMS_ITS | Continuity of Care Document ---
Author Organization LIANNE COLEMAN MD [facility], Main Office Address [address] [place] [phone] Assessment No assessment recorded. Plan of Treatment Reminders Order Date Submit Date Provider Last Modified By Organization Details Last Modified Time Details Appointments HBV FOLLOW UP 2025 11:40A M John Vickers MD Not available Not available Not available Lab None recorded . Referral None recorded . Procedures None recorded . Surgeries None recorded . Imaging None recorded . Medication Orders Flonase Allergy Relief 50 mcg/actu ation nasal spray,christianson spension 2024 025 [facility]/Pharmacy #[id number], [phone] [place], [address], 05/27/2025 16:04:45 omeprazo le 40 mg capsule, delayed release 2024 025 [email or web address] [facility]/Pharmacy #[id number], [phone] [place], [address], 05/27/2025 16:02:46 Patient TargetsNo targets recorded. Patient InstructionsNo instructions recorded. Reason for Referral None Reported. Results Created Date Observation Date Name Description Value Unit Range Abnormal Flag Note LastModifiedBy Organization Detail LastModifiedTime Result Notes None recorded. Problems Name Problem SNOMED Code Status Onset Date Resolution Date Notes Provider Name and Address Organization Details Recorded Time Steatotic liver disease 584898983 Active 2023 John Vickers MD [address] [place] [address], [phone], LIANNE VICKERS MD [facility] 10:35:09 Adenomyomatosi s of gallbladder 639054453 Active 2023 John Vickers MD [address] [place], [address] [facility] LIANNE VICKERS MD [facility] 4 10:24:47 Problem Notes None recorded. Medical Equipment None Reported. Medications Name Sig Start Date Stop Date Status Note LastModified by Organization Details LastModified Time omeprazole 40 mg capsule,soy yed release Take 1 capsule every day by oral route for 30 days, for GERD. 2024 active Not Available Not Available Not Avai lable Loratadine-D 10 mg-240 mg tablet,exten ded release 24 hr Take 1 tablet every day by oral route for 30 days, for nasal congestion. 2024 active Not Available Not Available Not Avai lable Flonase Allergy Relief 50 mcg/actuatio n nasal spray,suspen [address] 1 spray every day by intranasal route, for congestion. 2024 active Not Available Not Available Not Avai lable Vitals Date Recorded Heart rate Body temperature Body weight Systolic And Diastolic Provider Name and Address Organization Details Last Updated DateTime 05/27/2025 93 /min 97.8 [degF] 99425.56 g 148/90 mm[Hg] Carlos A VICKERS MD [facility] 05/27/2025 15:15:14 Social History None recorded. Functional Status None recorded. Mental Status None recorded. Family History Nothing Reported. Medical History No medical history recorded. Gynecological HistoryNo gynecological history recorded. Obstetrics History GPAL:G 0 P 0 0 0 0 Past Encounters Encounter ID Performer Location Encounter Start Date Encounter Closed Date Diagnosis/Indication Diagnosis SNOMED-CT Code Diagnosis ICD10 Code Diagnosis IMO Codes Diagnosis Note [id number] John Vickers MD Main Office [address] [place] [address] 05/27/2025 15:05:55 05/27/2025 16:06:03 Chronic type B viral hepatitis 08330684 B18.1 HBV.monito r labs; no tx. no need for tx so far based on current guidelines . pt prefers not to be on HBV tx.avoid ETOHcall with any new medsu/s abd 08/2025decl kacie flu vaccine.la bs prior to next visitPlan of care reviewed Gastroesop hageal reflux disease 410501082 K21.9 [id number] Recently seen in [place] [facility] for GERD; was Rx'd PPI, omeprazole 40mg. Needs refillHas F/U w/PCP in DecAvoid foods that aggravate symptoms Nasal congestion 3106799 0 R09.81 50176 flonase qdloratadi ne D or loratadine for congestion /allergy respective ly Body mass index 30+ - obesity 153640969 E66.9 5118331 has been evaluate for liposuctio ndiet and exercise reviewed.G LP1's reviewed as option.she will call if interested in tx. Health Concerns Section Related Observation LastModified by Organization Detai ls LastModified Time None Recorded Concern Status LastModified by Organization Details LastModified Time None Recorded Payers Encounter Date Sequence Insurance Name Policy Number Policy Sanchez Covered Member ID Sanchez Member ID Guarantor Name 05/27/2025 1 [place]: [facility] Ashley Olivares [id number] Ashley Olivares Notes Date Note Type Note Provider Name and Address Organization Details Recorded Time 05/27/2025 text/html ROS as noted in the HPI f/u HBV. not on tx by choice.was recently sick with URI sx when blood draw was done; recovered, except for nasal congestion and GERD.Reports she was recently at [facility], had labs. Tx'd for GERD, was taking PPI w/good results, but ran out of meds. Would like refill.Has also had 2 abd US, aware of GB disease, but no stones. Has cut back on fried/greasy foods; less RUQ painNo N/V/DDenies fever/chillsHas Hx constipation, on Linzess. No issues today. Some abdominal discomfort after she eats, Hx GB disease. no weight loss. no jaundiceno other concerns med list reviewed denies ETOH use. denies drug use Here w/daughter she goes to the [facility]; is interested in liposuction for which she has been evaluated.she will consider GlP1's. no hx pancreatitis nor thyroid medullary cancer.has gained weight ; denies sexual activity. declines PrePdaughter in room with her consent. 08/2024 u/s unremarkable 04/2025 @ [facility]. HBV VL HBV vL 75; HIV neg; HCV ab neg; 08/2024 HIV neg; HCV neg; ALT/AST wnl; eGFR>60 07/2024 HBV XS=829; ALT/AST wnl; eGFE>60; negative HIV and negative syphillis. neg GC/chlamydia 08/28/2023 Fibrosure F0; HDV neg had u/s and CT scan done in [place]. due to u/s 08/2023 that shows adenomyomatosis of GB; was present on 2022.; John Vickers MD [address] [place] [address], [phone], LIANNE - OJHN VICKERS MD [facility] 05/27/2025 16:13:32 OBGyn Episode No OBEpisode recorded.
--- OUTSIDE RECORDS SUMMARY | 2025-05-31 13:39 | XMS_ITS | Data Portability ---
Author Organization [place] - JOHN COLEMAN MD [facility], Main Office Address [address] [place] [phone] Assessment Encounter Date Assessment Date Assessment LastModified by Organization Details LastModified Time 08/27/2024 08/27/2024 Telehealth. 17 min; [place]; [place] in office in [place]; [employer] [email or web address] Not available 08/28/2024 10:31:52 11/25/2024 11/25/2024 Telehealth. 19 min; [place]; [place] in [place]; [employer] [email or web address] Not available 11/25/2024 12:55:45 01/25/2025 01/25/2025 Telehealth. 17; [place]. [place]; [place] in [place]; [facility] [email or web address] Not available 01/25/2025 13:26:27 Plan of Treatment Reminders Order Date Submit Date Provider Last Modified By Organization Details Last Modified Time Details Appointments HBV FOLLOW UP 2025 11:40A Tj Vickers MD Not available Not available Not available Lab hepatiti s B DNA, quantita tive, serum [address] (Lab), [address] [place] [address], [id number], 02/09/2025 13:10:38 CBC w/ diff [address] (Lab), [address] [place] [address], [address], 02/09/2025 13:10:38 RPR (rapid plasma reagin), serum [address] (Lab), [address] [place], [address], 02/09/2025 13:10:38 CMP, serum or plasma [address] [place] [address] (Lab), [address] [place], [address], 02/09/2025 13:10:38 hepatiti s B DNA, quantita tive, serum [address] [place] [address] (Lab), [address] [place], [address], 12/02/2024 13:46:59 CBC w/ diff [address] [place] [address] (Lab), [address] [place] [address], [address], 12/02/2024 13:46:59 CT + NG DNA, PCR, unspecif ied specimen [address] [place] [address] (Lab), [address] [place] [address], [address], 12/02/2024 13:46:59 hepatiti s C virus Ab, serum [address] [place] [address] (Lab), [address] [place] [address], [address], 12/02/2024 13:46:59 RPR (rapid plasma reagin), serum [address] [place] [address] (Lab), [address] [place] [address], [address], 12/02/2024 13:47:00 HIV (1+2) Ab screen, serum [address] [place] [address] (Lab), [address] [place] [address], [address], 12/02/2024 13:47:00 CMP, serum or plasma [address] [place] [address] (Lab), [address] [place] [address], [address], 12/02/2024 13:47:00 hepatiti s B DNA, quantita tive, serum [address] [place] [address] (Lab), [address] [place] [address], [address], 09/04/2024 08:48:24 CBC w/ diff [address] [place] [address] (Lab), [address] [place] [address], [address], 09/04/2024 08:48:25 ALT (alanine aminotra nsferase ), serum or plasma [address] [place] [address] (Lab), [address] [place] [address], [address], 09/04/2024 08:48:25 AST/SGOT (asparta te aminotra nsferase ), serum or plasma [address] [place] [address] (Lab), [address] [place] [address], [address], 09/04/2024 08:48:25 CT + NG DNA, PCR, unspecif ied specimen [address] [place] [address] (Lab), [address] [place] [address], [address], 09/04/2024 08:48:25 creatini ne w/ estimate d GFR (eGFR), serum or plasma [address] [place] [address] (Lab), [address] [place] [address], [address], 09/04/2024 08:48:25 hepatiti s C virus Ab, serum [address] (Lab), [address] [place] [address], [address], 09/04/2024 08:48:25 RPR (rapid plasma reagin), serum [address] (Lab), [address] [place] [address], [address], 09/04/2024 08:48:25 HIV (1+2) Ab screen, serum [address] (Lab), [address] [place] [address], [address], 09/04/2024 08:48:25 bilirubi n, total, serum or plasma [address] (Lab), [address] [place] [address], [address], 09/04/2024 08:48:25 albumin, serum or plasma [address] (Lab), [address] [place] [address], [address], 09/04/2024 08:48:25 hepatiti s B DNA, quantita tive, serum [address] (Lab), [address] [place] [address], [address], 02/14/2024 09:27:22 CBC w/ diff [address] (Lab), [address] [place] [address], [address], 02/14/2024 09:27:23 ALT (alanine aminotra nsferase ), serum or plasma [address] (Lab), [address] [place] [address], [address], 02/14/2024 09:27:23 AST/SGOT (asparta te aminotra nsferase ), serum or plasma [address] (Lab), [address] [place] [address], [address], 02/14/2024 09:27:23 CT + NG DNA, PCR, unspecif ied specimen [address] (Lab), [address] [place] [address], [address], 02/14/2024 09:27:23 creatini ne w/ estimate d GFR (eGFR), serum or plasma [address] (Lab), [address] [place] [address], [address], 02/14/2024 09:27:23 hepatiti s C virus Ab, serum [address] (Lab), [address] [place] [address], [address], 02/14/2024 09:27:23 RPR (rapid plasma reagin), serum [address] (Lab), [address] [place] [address], [address], 02/14/2024 09:27:23 HIV (1+2) Ab screen, serum [address] (Lab), [address] [place] [address], [address], 02/14/2024 09:27:24 bilirubi n, total, serum or plasma [address] (Lab), [address] [place] [address], [address], 02/14/2024 09:27:24 albumin, serum or plasma [address] (Lab), [address] [place] [address], [address], 02/14/2024 09:27:24 Referral None recorded . Procedures None recorded . Surgeries None recorded . Imaging US, abdomen, complete - HCC screen 2024 025 [email or web address] [facility] (Imaging), [address] [place] [address], [address], 12/02/2024 13:46:46 US, abdomen - HBV. HCC SCreen; hx fatty liver; and GB adenomyo matosis per previous scan [address] (Imaging), [address] [place] [address], [address], 09/11/2024 09:03:34 Medication Orders Flonase Allergy Relief 50 mcg/actu ation nasal spray,christianson spension 2024 025 [facility]/Pharmacy #[id number], [phone] [place], [address], 05/27/2025 16:04:45 omeprazo le 40 mg capsule, delayed release 2024 025 [email or web address] [facility]/Pharmacy #1130, [phone] [place], [address], 05/27/2025 16:02:46 Loratadi ne-D 10 mg-240 mg tablet,e xtended release 24 hr 2024 025 [facility]/Pharmacy #[id number], [phone] [place], [address], 11/25/2024 12:56:33 Patient TargetsNo targets recorded. Patient InstructionsNo instructions recorded. Reason for Referral None Reported. Results Created Date Observation Date Name Description Value Unit Range Abnormal Flag Note LastModifiedBy Organization Detail LastModifiedTime Result Notes None recorded. Problems Name Problem SNOMED Code Status Onset Date Resolution Date Notes Provider Name and Address Organization Details Recorded Time Steatotic liver disease 858965950 Active 2023 John Vickers MD [address] [place] [address], [phone], LIANNE VICKERS MD [facility] 4 10:35:09 Adenomyomatosi s of gallbladder 121967739 Active 2023 John Vickers MD [address] [place] [address], [address], LIANNE VICKERS MD [facility] 10:24:47 Problem Notes None recorded. [...] Relief 50 mcg/actuatio n nasal spray,suspen [address] 1 spray every day by intranasal route, for congestion. 2024 active Not Available Not Available Not Avai lable Vitals Date Recorded Heart rate Body temperature Body weight Systolic And Diastolic Provider Name and Address Organization Details Last Updated DateTime 05/27/2025 93 /min 97.8 [degF] 51821.56 g 148/90 mm[Hg] Carlos A VICKERS MD [facility] 05/27/2025 15:15:14 Social History None [...] Note 571 John Vickers MD Main Office [address] [place] [address] [place] [address] 04/29/2023 12:56:09 04/30/2023 17:08:59 Chronic type B viral hepatitis 52001226 B18.1 HBV. monitor labs; no tx. no [...] Plan of care reviewed Steatotic liver disease 200439453 K76.0 diet and exercise reviewedav oid ETOH.incre ase water intake. 1993 John Vickers MD Main Office [address] [place] [address] 08/27/2023 10:39:49 08/27/2023 11:01:55 Chronic type B viral hepatitis 16955849 B18.1 HBV.monito r labs; no tx. no [...] PreP availabili tyPlan of care reviewed Adult [facility] examination 959714516 Z00.00 labs ordered [id number] John Vickers MD Main Office [address] [place] [address] 09/19/2023 10:01:15 11/04/2023 13:55:01 Chronic type B viral hepatitis 96892870 B18.1 HBV.monito r labs; no tx. no [...] of care reviewed Adenomyoma tosis of gallbladder 045093860 K82.8 will see GI; referred by PCP. [id number] John Vickers MD Main Office [address] [place] [address] 02/07/2024 09:16:44 02/07/2024 10:45:21 Chronic type B viral hepatitis 63636658 B18.1 HBV.monito r labs; no tx. no [...] of care reviewed Adenomyoma tosis of gallbladder 701089739 K82.[address] scan reports done at [place] Steatotic liver disease K76.0 diet and exercise reviewedav oid ETOH.incre ase water intake.vit E suggested. [id number] John Vickers MD Main Office [address] [place] [address] 08/28/2024 10:19:34 09/10/2024 15:08:10 Chronic type B viral hepatitis 63681596 B18.1 HBV.monito r labs; no tx. no [...] of care reviewed Adenomyoma tosis of gallbladder 072093493 K82.[address] [place] ordered Steatotic liver disease K76.0 diet and exercise reviewedav oid ETOH.incre ase water intake.ivy ght loss reviewedu/ s abd [id number] John Vickers MD Main Office [address] [place] [address] 11/25/2024 12:50:10 11/25/2024 13:23:26 Chronic type B viral hepatitis 74204702 B18.1 HBV.monito r labs; no tx. no [...] visitPlan of care reviewed Steatotic liver disease 014815400 K76.0 diet and exercise reviewedav oid ETOH.incre ase water intake.ivy brady reviewedu/ s abd HCC csreen Nasal congestion 4404497 0 R09.81 22343 flonase qdloratadi [place] [id number] John Vickers MD Main Office [address] [place] [address] 01/25/2025 13:13:40 01/25/2025 13:44:43 Chronic type B viral hepatitis 38965501 B18.1 HBV.monito r labs; no tx. no need for tx so far based on current guidelines . pt prefers not to be on HBV tx.avoid ETOHcall with any new medsu/s abd 08/2025labs prior to next visitPlan of care reviewed [id number] John Vickers MD Main Office [address] [place] [address] 05/27/2025 15:05:55 05/27/2025 16:06:03 Chronic type B viral hepatitis 81530991 B18.1 HBV.monito r labs; no tx. no need for tx so far based on current guidelines . pt prefers not to be on HBV tx.avoid ETOHcall with any new medsu/s abd 08/2025decl kacie flu vaccine.la bs prior to next visitPlan of care reviewed Gastroesop hageal reflux disease 196553331 K21.9 [id number] Recently seen in [place] ER for GERD; was Rx'd PPI, omeprazole 40mg. Needs refillHas F/U w/PCP in DecAvoid foods that aggravate symptoms Nasal congestion 1883930 0 R09.81 87394 flonase qdloratadi ne D or loratadine for congestion /allergy respective ly Body mass index 30+ - obesity 806312832 E66.9 2581079 has been evaluate for liposuctio ndiet and [...] Sanchez Member ID Guarantor Name 08/28/2024 1 [place] [facility] Ashleyabhi Olivares [id number] Ashley Olivares 11/20/2024 1 [facility] [id number] Ashley Olivares [id number] Ashley Olivares 08/28/2024 2 [place] [employer] Ashleyabhi Olivares [id number] Ashley Olivares 05/24/2025 1 [place] [facility] Ashleyabhi Olivares [id number] Ashley Olivares Notes Date Note Type Note Provider Name and Address Organization Details Recorded Time 02/07/2024 text/html ROS as noted in the HPI f/u HBV.not on tx by choice.08/28/2023 Fibrosure F0; HDV neghad CT scan done in [place]. due to u/s 08/2023 that shows adenomyomatosis of GB; was present on 2022.;no other concerns. no abd pain. no n.v.d, abdominal discomfort after she eats. no weight loss. no fever. no /2023 HBV labs not done; ASLt/AST wnl; eGFR ok ; HBV DNA VL 683 IU/ml; HCV neg; HIV neg; GC/chlamydia neg; glu 113; eGFR>60; AST/ALT /24; no anemia; not on HBV tx. feels well.02/2022 HBV VL PCR 199; eGFR=58; HCV neg; HIV neg; neg syphilis; ALt/AST wnl; CBC wnlmed list reviewedno new meds nor OTCdenies ETOH use. denies drug useno new medical issueshas one male sexual partner John Vickers MD [address] [place] [address], [phone], LIANNE VICKERS MD [facility] 02/07/2024 14:52:16 08/27/2024 text/html ROS as noted in the HPI f/u HBV.not on tx by choice.07/2024 HBV XA=944; ALT/AST wnl; eGFE>60; negative HIV and negative syphillis. neg GC/chlamydia08/28/2023 Fibrosure F0; HDV neghad u/s and CT scan done in [place]. due to u/s 08/2023 that shows adenomyomatosis of GB; was present on 2022.;no other concerns. no abd pain. no n.v.d, abdominal discomfort after she eats. no weight loss. no fever. no jaundicemed list reviewedno new meds nor OTCdenies ETOH use. denies drug useno new medical issueshas one male partner; denies sexual activityno STI sxshe reports household is vaccinated John Vickers MD [address] [place] [address], [phone], LIANNE VICKERS MD [facility] 08/28/2024 10:34:13 11/25/2024 text/html ROS [...] neg; HCV neg; ALT/AST wnl; eGFR>6007/2024 HBV KQ=485; ALT/AST wnl; eGFE>60; negative HIV and negative syphillis. neg GC/chlamydia08/28/2023 Fibrosure F0; HDV neghad u/s and CT scan done in [place]. due to u/s 08/2023 that shows adenomyomatosis of GB; was present on 2022.; John Vickers MD [address] [place] [address], [phone], [facility] - JOHN VICKERS MD [facility] 11/25/2024 13:02:12 01/25/2025 text/html ROS [...] neg; HCV neg; ALT/AST wnl; eGFR>6007/2024 HBV XZ=503; ALT/AST wnl; eGFE>60; negative HIV and negative syphillis. neg GC/chlamydia08/28/2023 Fibrosure F0; HDV neghad u/s and CT scan done in [place]. due to u/s 08/2023 that shows adenomyomatosis of GB; was present on 2022.; John Vickers MD [address] [place], [address], [facility] Janay VICKERS MD [facility] 01/25/2025 13:27:08 05/27/2025 text/html ROS as noted in the HPI f/u HBV. not on tx by choice.was recently sick with URI sx when blood draw was done; recovered, except for nasal congestion and GERD.Reports she was recently at [facility], had labs. Tx'd for GERD, was taking [...] her consent. 08/2024 u/s unremarkable 04/2025 @ [facility]. HBV VL HBV vL 75; HIV neg; HCV ab neg; 08/2024 HIV neg; HCV neg; ALT/AST wnl; eGFR>60 07/2024 HBV PF=138; ALT/AST wnl; eGFE>60; negative HIV and negative syphillis. neg GC/chlamydia 08/28/2023 Fibrosure F0; HDV neg had u/s and CT scan done in [place]. due to u/s 08/2023 that shows adenomyomatosis of GB; was present on 2022.; John Vickers MD [address] [place] [address], [phone], LIANNE - JOHN VICKERS MD [facility] 05/27/2025 16:13:32 OBGyn Episode No OBEpisode recorded.
[2025-05-31 13:41] LABS: Alanine Aminotransferase 37 U/L (0-31); Albumin Level 4.1 g/dL (3.5-5.0); Alkaline Phosphatase 95 U/L (39-117); Anion Gap 9 (12-20); Aspartate Amino Transferase 62 U/L (5-31); Blood Urea Nitrogen 14 mg/dL (9-16); Calcium 9.3 mg/dL (8.4-10.2); Carbon Dioxide 25 mmol/L (22-29); Chloride 111 mmol/L (96-108); Cholesterol 177 mg/dL (<200); Estimated Glomerular Filt Rate > 60; HDL Cholesterol 49 mg/dL (>40); Potassium 3.7 mmol/L (3.3-5.1); Sodium 141 mmol/L (135-145); Total Protein 7.1 g/dL (6.5-8.0); Triglycerides 167 mg/dL (<150)
== END 2025-05-31 10:57 | disposition home or self-care (01) ==
LOC: HO.HHCL 10:56
PROVIDERS: PCP Internal Medicine; Visit Provider Registered Nurse Psychiatric/Mental Health
DX: E03.9 Hypothyroidism, unspecified (principal)
CPT/HCPCS: 36415; 80053; 80061; 82248; 84443; 85025